=== PATIENT | female | born 1945 | race Two or more races ===

== ENCOUNTER 2016-09-20 10:36 | Inpatient (IN) | payer OTHER ==
--- NOTE | 2016-09-20 10:44 | PDOC ---
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 The patients daughter reports the patient complained of dizziness yesterday. The patients daughter states the patient has not been responding verbally since yesterday morning. The patient does not make urine as per her daughter. The patients daughter states her mother is usually seen at a clinic at [facility] Allergies: NKDA Past surgical history: quadruple bypass <Camille Dudley - Last Filed: 09/20/16 14:44> - General History Source: Patient, EMS, Old Records Exam Limitations: Clinical Condition <Laurie Del Rio - Last Filed: 09/21/16 10:32> - General Chief Complaint: Altered Mental Status Stated Complaint: ALTERED MENTAL Time Seen by Provider: 09/20/16 10:43 Past History <Camille Dudley - Last Filed: 09/20/16 14:44> - Past Medical History Diabetes: Yes Dialysis: Yes (,,) HTN: Yes Suicide Attempt (Hx): No - Surgical History Cardiac Surgery: Yes (QUAD BYPASS) - Immunization History Td Vaccination: (UNKNOWN) Immunization Up to Date: Yes (FLU AND PNA) - Psycho/Social/Smoking Cessation Hx Anxiety: No Suicidal Ideation: No Smoking Status: No Smoking History: Never smoked Have you smoked in the past 12 months: No Number of Cigarettes Smoked Daily: 0 Hx Alcohol Use: No Drug/Substance Use Hx: No Substance Use Type: None <Laurie Del Rio - Last Filed: 09/21/16 10:32> - Past Medical History Allergies/Adverse Reactions: Allergies Allergy/AdvReac Type Severity Reaction Status Date / Time No Known Allergies Allergy Verified 09/20/16 11:41 Home Medications: Ambulatory Orders Aspirin [ASA -] 81 mg PO DAILY 07/24/15 Amlodipine Besylate 5 mg PO DAILY 09/20/16 Carvedilol 6.25 mg PO BID 09/20/16 Gabapentin 100 mg PO HS 09/20/16 Isoniazid 300 mg PO DAILY 09/20/16 Pyridoxine HCl [Vitamin B-6] 100 mg PO DAILY 09/20/16 Review of Systems - Review of Systems Able to Perform ROS?: No (altered, Hx from family) <Rox Dudleyanda - Last Filed: 09/20/16 14:44> *Physical Exam - Physical Exam Comments: 09/20/16 11:06 GENERAL: The patient is in no acute distress. Somnolent, but responsive to painful stimuli. HEAD: Normal with no signs of trauma. EYES: PERRLA, EOMI, sclera anicteric, conjunctiva clear. ENT: Ears normal, nares patent, oropharynx clear without exudates. Moist mucous membranes. NECK: Normal range of motion, supple without lymphadenopathy, JVD, or masses. LUNGS: Breath sounds equal, clear to auscultation bilaterally. No wheezes, and no crackles. HEART:Regular rate and rhythm, normal S1 and S2 without murmur, rub or gallop. ABDOMEN: Soft, nontender, normoactive bowel sounds. No guarding, no rebound. No masses palpable. EXTREMITIES: Normal range of motion, no edema. No clubbing or cyanosis. No erythema, or tenderness. NEUROLOGICAL: (+) moving all extremities purposefully and with full strength. Cranial nerves II through XII grossly intact. No focal neurological deficits. MUSCULOSKELETAL: Back non-tender to palpation, no CVA tenderness SKIN: Warm, Dry, normal turgor, no rashes or lesions noted. <Camille Dudley - Last Filed: 09/20/16 14:44> Heart Score/ECG Review #1 ECG reviewed & interpreted by me at: 11:22 General ECG Interpretation: Sinus Rhythm, Normal Rate, No acute ischemic changes 09/20/16 11:22 QTc - 492ms <Laurie Del Rio - Last Filed: 09/21/16 10:32> ED Treatment Course - LABORATORY CBC & Chemistry Diagram: 09/20/16 11:07 09/20/16 12:46 - RADIOLOGY Radiograph Interpretation: 09/20/16 13:25 EXAM#: TYPE/EXAM: RESULT: [id number] RAD/CHEST X-RAY PORTABLE* Chest: HISTORY: Rule out sepsis. Frontal view of the chest is provided. Prior study is dated October 08, 2015. There is a suboptimal inspiratory effort which exaggerates cardiomediastinal silhouette and perihilar lung markings which appear prominent. Cannot exclude mild congestive changes. Sternotomy wires and clips are again noted. There is osteopenia. There is slight blurring of the left hemidiaphragm focally which may be a spurious finding however small infiltrate cannot be excluded at the left base. Subacromial spurs are noted. IMPRESSION: Suboptimal inspiratory effort which exaggerates cardiomediastinal silhouette and perihilar lung markings. Cannot exclude mild congestive changes. Slight blurring of the left hemidiaphragm focally may reflect small early infiltrate at the left base. Recommend clinical correlation. Reported By: Barbara Banegas MD 09/20/16 1116 EXAM#: TYPE/EXAM: RESULT: [id number] CT/HEAD CT WITHOUT CONTRAST Change in mental status. CT scan of the brain without intravenous contrast. Since 01/24/2011, there is [id number] volume loss and ventricular dilatation. Probable mild periventricular chronic microvascular ischemic changes are present. No mass lesion, gross acute infarct or intracranial hemorrhage are identified. There is no shift of the midline structures. Calcification of the cavernous carotid arteries are present. Mild deviation of the nasal septum to the left. Visualized paranasal sinuses and mastoid air cells are well aerated and the calvarium is intact IMPRESSION: No significant interval change or acute intracranial pathology is identified. Reported By: Martina Salazar MD 09/20/16 1308 <Camille Dudley - Last Filed: 09/20/16 14:44> - LABORATORY CBC & Chemistry Diagram: 09/21/16 07:50 09/21/16 07:50 <Laurie Del Rio - Last Filed: 09/21/16 10:32> Medical Decision Making - Medical Decision Making 09/20/16 10:43 A portion of this note was documented by scribe services under my direction. I have reviewed the details of the note, within reason, and agree with the documentation with the following case summary and management plan written by me. Nursing documentation reviewed and incorporated into medical decision making 09/20/16 12:05 This patient is a 70-year-old female with a history of end-stage renal disease on dialysis, coronary artery disease status post triple bypass, The patient patient presents emergency department from dialysis due to altered mental status. According to the family she was noted to be weak yesterday, pt was still speaking but slow to respond Today, apparently she was not speaking prior to dialysis She completed her dialysis session and still remained aphasic and appeared weak According to the family, she has had no fevers or chills No nausea or vomiting She does not make urine No diarrhea Laboratory Tests 09/20/16 11:07 WBC 9.7 Hgb 11.3 Hct 35.4 Plt Count 307 Neutrophils % 83.2 H Lymphocytes % 10.1 09/20/16 15:[address] negative Pt reportedly complaining of occipital headache No nuchal rigidity Will give tylenol Will re assess 09/20/16 15:46 Laboratory Tests 09/20/16 12:46 Sodium 137 Potassium 4.2 D Chloride 103 Carbon Dioxide 21 Anion Gap 13 BUN 28 H D Creatinine 4.5 H D Random Glucose 97 D Creatine Kinase 50 Troponin I < 0.02 Morphine given for headache Pt improved and is back to her baseline Clinical impression: Altered Mental Status <Laurie Del Rio - Last Filed: 09/21/16 10:32> *DC/Admit/Observation/Transfer - Attestations Scribe Attestion: 09/20/16 11:07 Documentation prepared by Camille Dudley, acting as medical observer for Laurie Del Rio MD <Camille Dudley - Last Filed: 09/20/16 14:44> - Discharge Dispostion Admit: Yes <Laurie Del Rio - Last Filed: 09/21/16 10:32> Diagnosis at time of Disposition: Altered mental status Qualifiers: Altered mental status type: somnolence Qualified Code(s): R40.0 - Somnolence - Discharge Dispostion Condition at time of disposition: Stable
--- NOTE | 2016-09-20 11:11 | EKG ---
Test Reason : Blood Pressure : / mmHG Vent. Rate : 078 BPM Atrial Rate : 078 BPM P-R Int : 182 ms QRS Dur : 092 ms QT Int : 432 ms P-R-T Axes : 022 028 048 degrees QTc Int : 492 ms NORMAL SINUS RHYTHM PROLONGED QT ABNORMAL ECG WHEN COMPARED WITH ECG OF 12-JAN-2015 21:31, NO SIGNIFICANT CHANGE WAS FOUND REPEAT EKG IF CLINICALLY INDICATED Confirmed by SHELBY CORONADO MD ([id number]) on 09/20/2016 11:10:31 AM Referred By: Confirmed By:SHELBY CORONADO MD
[2016-09-20 11:39] LABS: BASOPHIL 1.1 % (0-2.0); EOSINOPHIL 1.2 % (0-4.5); MCH 30.1 pg (25.7-33.7); MCHC 31.9 g/dl (32.0-36.0); MEAN CELL VOLUME 94.3 fl (80-96); MEAN PLT VOLUME 8.8 fl (7.5-11.1); NEUTROPHILS 83.2 % (42.8-82.8); PLATELET COUNT 307 K/MM3 (134-434); RDW 16.1 % (11.6-15.6); WHITE BLOOD COUNT 9.7 K/mm3 (4.0-10.0)
[2016-09-20 11:57] LABS: INR 1.3 (0.82-1.09); PROTHROMBIN TIME (PATIENT) 14.4 SEC (9.98-11.88)
[2016-09-20 12:02] LABS: ACTIVATED PTT 38.5 SECONDS (26.9-34.4)
[2016-09-20 12:04] LABS: VENOUS BLOOD GAS HCO3 25.1 meq/L (19-25); VENOUS PH 7.39 (7.32-7.42)
[2016-09-20] MEDS ORDERED: ACETAMINOPHEN 325 MG TABLET (FP) PO ONE (13:24)
[2016-09-20] MEDS ORDERED: ACETAMINOPHEN 325 MG TABLET (FP) ONE ×2 (13:28→22:46)
[2016-09-20 13:32] LABS: ALBUMIN 3.2 g/dl (3.4-5.0); ANION GAP 13 (8-16); BILIRUBIN,TOTAL 0.5 mg/dL (0.2-1.0); CALCIUM 8.4 mg/dL (8.5-10.1); CO2 21 mmol/L (21-32); CREATININE 4.5 mg/dL (0.55-1.02); GLUCOSE,RANDOM 97 mg/dL (74-106); SGPT/ALT 17 U/L (12-78); TOT PROT 6.2 g/dl (6.4-8.2)
[2016-09-20 13:44] LABS: ALK PHOS 116 U/L (45-117); CPK 50 IU/L (26-192); SGOT/AST 84 U/L (15-37); TROPONIN I < 0.02 ng/ml (0.00-0.05)
--- NOTE | 2016-09-20 16:19 | HP ---
70 y/o F with PMH HTN s/p quadruple bypass, ESRD (dialysis Monday, , Monday), + PPD (on meds), [place] (13 years ago), who presented to ED with dizziness for 2 days. As per patient's daughter, 2 days ago, patient told her daughter that she was feeling dizzy. She is verbal and fully functional at baseline. . However, when patient went to dialysis this morning, the dizziness persisted as she had trouble walking. From dialysis she was recommended to come to ER. She has become non-verbal and simply moaning in pain. Daughter states that she is complaining of occipital headache. ER course was notable for: (1) CXR: cannot exclude mild congestive changes, small early infiltrate L base (2) EKG: NSR, prolonged QT (3) Head CT: no changes or acute intracranial pathology (4) Morphine 2mg IVPush once, acetaminophen 975 mg PO once Recent Travel: none PAST MEDICAL HISTORY: HTN s/p quadruple bypass, ESRD (dialysis Monday, , Monday), + PPD (on meds), [place] (13 years ago) PAST SURGICAL HISTORY: colectomy, daughter is unable to explain reason why Social History: Smoking: denies Alcohol: denies Drugs: denies Family History: DM in brother Allergies No Known Allergies Allergy (Verified 09/20/16 11:41) HOME MEDICATIONS: Home Medications Medication Instructions Recorded Aspirin [ASA -] 81 mg PO DAILY 07/24/15 Amlodipine Besylate 5 mg PO DAILY 09/20/16 Carvedilol 6.25 mg PO BID 09/20/16 Gabapentin 100 mg PO HS 09/20/16 Isoniazid 300 mg PO DAILY 09/20/16 Pyridoxine HCl [Vitamin B-6] 100 mg PO DAILY 09/20/16 REVIEW OF SYSTEMS Unable to obtain secondary to level of consciousness. PHYSICAL EXAMINATION GENERAL: lethargic and minimally responsive. HEAD: Normal with no signs of trauma. EYES: pupils minimally reactive to light. EARS, NOSE, THROAT: Dry mucous membranes. NECK: Supple with no JVD. LUNGS: Diminished breath sounds at bases bilaterally HEART:RRR, 2/6 FABRICIO RSB ABDOMEN: Soft, nontender, not distended, normoactive bowel sounds, no guarding, no rebound, no masses. No hepatomegaly or splenomegaly. MUSCULOSKELETAL: No CVA tenderness. UPPER EXTREMITIES: 2+ pulses, warm, well-perfused. No cyanosis. No clubbing. No peripheral edema. LOWER EXTREMITIES: 2+ pulses, warm, well-perfused. No calf tenderness. No peripheral edema. NEUROLOGICAL: lethargic and minimally responsive, 2+ DTR of upper and lower ext SKIN: Warm, dry, normal turgor, no rashes or lesions noted, normal capillary refill. ASSESSMENT/PLAN: 70 y/o F with PMH HTN s/p quadruple bypass, ESRD (dialysis Monday, , Monday), + PPD (on meds), [place] (13 years ago) admitted for work up for acute mental status changes. Problem List - Problem (1) Altered mental status Assessment/Plan: * will r/o infection - CXR shows possible infiltrate * Blood and Urine cultures pending. * Lactic acid pending. * TSH, B12, and repeat CMP r/o metabolic causes. * Will continue IV Rocephin Code(s): R41.82 - ALTERED MENTAL STATUS, UNSPECIFIED (2) Positive PPD, treated Assessment/Plan: * Continue Isoniazid and B6. * ID consult. Visit type - Emergency Visit Emergency Visit: Yes ED Registration Date: 09/20/16 Care time: The patient presented to the Emergency Department on the above date and was hospitalized for further evaluation of their emergent condition. - New Patient This patient is new to me today: Yes Date on this admission: 09/21/16 - Critical Care Critical Care patient: No
[2016-09-20] MEDS ORDERED: morphine CARPU-JECT 4 MG/1 ML DISP.SYRIN IVPUSH ONE (17:03)
[2016-09-20] MEDS ORDERED: morphine CARPU-JECT 4 MG/1 ML DISP.SYRIN ONE (17:07)
--- NOTE | 2016-09-20 17:23 | HP ---
CHIEF COMPLAINT: dizziness for past 2 days PCP: HISTORY OF PRESENT ILLNESS: 70 y/o F with PMH HTN s/p quadruple bypass, ESRD (dialysis Monday, , Monday), + PPD (on meds), [place] (13 years ago), who presented to ED with dizziness for 2 days. As per patient's daughter, 2 days ago, patient told her daughter that she was feeling dizzy. Family thought it was not a problem. However, when patient went to dialysis this morning, the dizziness persisted as she had trouble walking. The staff at dialysis told the family at 8:30 this morning that she would need to go to the hospital for this reason. Over the past day, the patient has been unable to speak and respond to her family. At baseline, she is talkative. Her arms and legs have been shaking continually. Daughter states that mother has just been moaning in pain. As per pt's daughter, she receives medical treatment from [facility]. ER course was notable for: (1) CXR: cannot exclude mild congestive changes, small early infiltrate L base (2) EKG: NSR, prolonged QT (3) Head CT: no changes or acute intracranial pathology (4) Morphine 2mg IVPush once, acetaminophen 975 mg PO once Recent Travel: none PAST MEDICAL HISTORY: HTN s/p quadruple bypass, ESRD (dialysis Monday, , Monday), + PPD (on meds), [place] (13 years ago) PAST SURGICAL HISTORY: colectomy, daughter is unable to explain reason why Social History: Smoking: denies Alcohol: denies Drugs: denies Family History: DM in brother Allergies No Known Allergies Allergy (Verified 09/20/16 11:41) HOME MEDICATIONS: Home Medications Medication Instructions Recorded Aspirin [ASA -] 81 mg PO DAILY 07/24/15 Amlodipine Besylate 5 mg PO DAILY 09/20/16 Carvedilol 6.25 mg PO BID 09/20/16 Gabapentin 100 mg PO HS 09/20/16 Isoniazid 300 mg PO DAILY 09/20/16 Pyridoxine HCl [Vitamin B-6] 100 mg PO DAILY 09/20/16 REVIEW OF SYSTEMS CONSTITUTIONAL: +generalized weakness Absent: fever, chills, diaphoresis, generalized weakness, malaise, loss of appetite, weight change HEENT: Absent: rhinorrhea, nasal congestion, throat pain, throat swelling, difficulty swallowing, mouth swelling, ear pain, eye pain, visual changes CARDIOVASCULAR: Absent: chest pain, syncope, palpitations, irregular heart rate, lightheadedness , peripheral edema RESPIRATORY: Absent: cough, shortness of breath, dyspnea with exertion, orthopnea, wheezing, stridor, hemoptysis GASTROINTESTINAL: Absent: abdominal pain, abdominal distension, nausea, vomiting, diarrhea, constipation, melena, hematochezia GENITOURINARY: Absent: dysuria, frequency, urgency, hesitancy, hematuria, flank pain, genital pain MUSCULOSKELETAL: Absent: myalgia, arthralgia, joint swelling, back pain, neck pain SKIN: Absent: rash, itching, pallor HEMATOLOGIC/IMMUNOLOGIC: Absent: easy bleeding, easy bruising, lymphadenopathy, frequent infections ENDOCRINE: Absent: unexplained weight gain, unexplained weight loss, heat intolerance, cold intolerance NEUROLOGIC: +dizziness Absent: headache, focal weakness or paresthesias, dizziness, unsteady gait, seizure, mental status changes, bladder or bowel incontinence PSYCHIATRIC: Absent: anxiety, depression, suicidal or homicidal ideation, hallucinations. PHYSICAL EXAMINATION GENERAL: lethargic, in mild distress, moaning in pain HEAD: Normal with no signs of trauma. EYES: Pupils equal, round and reactive to light, rest difficult to assess as pt would not open eyes or follow commands EARS, NOSE, THROAT: ropharynx clear without exudates. Moist mucous membranes. NECK: Normal range of motion, supple without lymphadenopathy, JVD, or masses. LUNGS: wheezing appreciated b/l. HEART: Regular rate and rhythm, normal S1 and S2 without murmur, rub or gallop. ABDOMEN: Soft, nontender, not distended, normoactive bowel sounds, no guarding, no rebound, no masses. MUSCULOSKELETAL: difficult to assess d/t patient's mentation UPPER EXTREMITIES: 2+ pulses, warm, well-perfused. No cyanosis. No clubbing. No peripheral edema. LOWER EXTREMITIES: 2+ pulses, warm, well-perfused. No calf tenderness. 2+ pitting edema noted bilaterally NEUROLOGICAL: difficult to assess, as pt did not respond to commands ASSESSMENT/PLAN: 70 y/o F with PMH HTN s/p quadruple bypass, ESRD (dialysis Monday, , Monday), + PPD (on meds), [place] (13 years ago), who presented to ED with dizziness for 2 days. Pt admitted to med-surg for altered mental status r/o sepsis. #Altered mental status r/o sepsis, r/o other etiologies -Pt does not currently have SIRS criteria- HR WNL, no leukocytosis, afebrile -However d/t change in mental status, stat septic workup sent: -Blood cx -Urine Cx -CXR (completed): cannot exclude mild congestive changes, small early infiltrate L base -Lactic acid #r/o other etiologies: -F/u TSH, Free t3, T4 -Head CT: WNL -Nephro consulted: Dr. Mosquera -ID consulted: Dr. Vela #ESRD -Nephro consulted: Dr. Mosquera -BUN/Cr today 28/4.5 (last Cr 6.4 in 2014)- most likely improved d/t dialysis -F/u BMP, CBC #HTN- controlled -Continue aspirin 81 mg PO, amlodipine 5 mg PO, carvedilol 25 mg PO BID #Hypothermia -Pt temp 96.1F upon admission -Sean hugged ordered #DVT prophylaxis -SCD's b/l -Heparin 5000U SQ BID F/E/N -Currently not on fluids as pt ESRD pt, will need to re-evaluate -Monitor electrolytes closely -Clear liquid diet Visit type - Emergency Visit Emergency Visit: Yes ED Registration Date: 09/20/16 Care time: The patient presented to the Emergency Department on the above date and was hospitalized for further evaluation of their emergent condition. - New Patient This patient is new to me today: Yes Date on this admission: 09/20/16 - Critical Care Critical Care patient: No
--- NOTE | 2016-09-20 17:57 | PN ---
Teaching Attending Note Name of Resident: Yanni Sykes ATTENDING PHYSICIAN STATEMENT I saw and evaluated the patient. I reviewed the resident's note and discussed the case with the resident. I agree with the resident's findings and plan as documented. SUBJECTIVE: Patient AAOx3 now, knows where she is , stated that she had chills earlier today. OBJECTIVE: Vital Signs Temperature 96.1 F L 09/20/16 10:36 Pulse Rate 64 09/20/16 17:23 Respiratory Rate 19 09/20/16 17:23 Blood Pressure 151/62 09/20/16 17:23 O2 Sat by Pulse Oximetry (%) 97 09/20/16 17:23 CBCD WBC 9.7 K/mm3 (4.0-10.0) 09/20/16 11:07 RBC 3.75 M/mm3 (3.60-5.2) 09/20/16 11:07 Hgb 11.3 GM/dL (10.7-15.3) 09/20/16 11:07 Hct 35.4 % (32.4-45.2) 09/20/16 11:07 MCV 94.3 fl (80-96) 09/20/16 11:07 MCHC 31.9 g/dl (32.0-36.0) L 09/20/16 11:07 RDW 16.1 % (11.6-15.6) H 09/20/16 11:07 Plt Count 307 K/MM3 (134-434) 09/20/16 11:07 MPV 8.8 fl (7.5-11.1) 09/20/16 11:07 CMP Sodium 137 mmol/L (136-145) 09/20/16 12:46 Potassium 4.2 mmol/L (3.5-5.1) D 09/20/16 12:46 Chloride 103 mmol/L (98-107) 09/20/16 12:46 Carbon Dioxide 21 mmol/L (21-32) 09/20/16 12:46 Anion Gap 13 (8-16) 09/20/16 12:46 BUN 28 mg/dL (7-18) H D 09/20/16 12:46 Creatinine 4.5 mg/dL (0.55-1.02) H D 09/20/16 12:46 Creat Clearance w eGFR 9.61 (>60) 09/20/16 12:46 Random Glucose 97 mg/dL (74-106) D 09/20/16 12:46 Calcium 8.4 mg/dL (8.5-10.1) L 09/20/16 12:46 Total Bilirubin 0.5 mg/dL (0.2-1.0) D 09/20/16 12:46 AST 84 U/L (15-37) H D 09/20/16 12:46 ALT 17 U/L (12-78) D 09/20/16 12:46 Alkaline Phosphatase 116 U/L (45-117) D 09/20/16 12:46 Total Protein 6.2 g/dl (6.4-8.2) L 09/20/16 12:46 Albumin 3.2 g/dl (3.4-5.0) L 09/20/16 12:46 CARDIAC ENZYMES Creatine Kinase 50 IU/L (26-192) 09/20/16 12:46 Troponin I < 0.02 ng/ml (0.00-0.05) 09/20/16 12:46 Current Medications Generic Name Dose Route Start Last Admin Trade Name Freq PRN Reason Stop Dose Admin Amlodipine Besylate 5 mg 09/21/16 10:00 Norvasc - PO DAILY [facility] Aspirin 81 mg 09/21/16 10:00 Asa - PO DAILY [facility] Carvedilol 25 mg 09/20/16 22:00 Coreg - PO BID [facility] Gabapentin 100 mg 09/20/16 22:00 Neurontin - PO HS [facility] Heparin Sodium (Porcine) 5,000 unit 09/20/16 22:00 Heparin - SQ BID [facility] Isoniazid 300 mg 09/21/16 10:00 Inh - PO DAILY [facility] Pyridoxine HCl 100 mg 09/21/16 10:00 Vitamin B6 - PO DAILY [facility] Home Medications Medication Instructions Recorded Aspirin [ASA -] 81 mg PO DAILY 07/24/15 Amlodipine Besylate 5 mg PO DAILY 09/20/16 Carvedilol 6.25 mg PO BID 09/20/16 Gabapentin 100 mg PO HS 09/20/16 Isoniazid 300 mg PO DAILY 09/20/16 Pyridoxine HCl [Vitamin B-6] 100 mg PO DAILY 09/20/16 CXR:Early infiltrate ASSESSMENT AND PLAN: patient is a 70 y/o F with PMHx of HTN s/p quadruple bypass, ESRD (dialysis Monday, , Monday), + PPD (on meds), [place] (13 years ago), who presented to ED with dizziness for 2 days. Pt admitted to med-surg for altered mental status r/o sepsis. #Altered mental status r/o sepsis, possible Infiltrate on IV antibiotic Rocephin IV and one dose of Zithromax , Panculture ordered. Back to her baseline # Acute Hypothermia temp 96.1F r/o sepsis, r/o Hypothyroidism, bare hugger #ESRD on HD Nephro consulted: Dr. 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
[2016-09-20] MEDS: AZITHROMYCIN IVPB 250 ML IVPB SCH (20:30)
[2016-09-20] MEDS ORDERED: AZITHROMYCIN IVPB 250 ML IVPB ONE (21:05)
[2016-09-20] MEDS ORDERED: CARVEDILOL 12.5 MG TABLET (FP) ONE (22:04)
[2016-09-20] MEDS ORDERED: GABAPENTIN 100 MG CAPSULE (FP) ONE (22:05)
[2016-09-20] MEDS ORDERED: HEPARIN NA (PORCINE) 5,000 UNITS/ML 1ML VIAL ONE (22:06)
[2016-09-20] MEDS: HEPARIN NA (PORCINE) 5,000 UNITS/ML 1ML VIAL SQ SCH (22:12)
[2016-09-20] MEDS: CARVEDILOL 25 MG TABLET (FP) PO SCH (22:12)
[2016-09-20] MEDS: GABAPENTIN 100 MG CAPSULE (FP) PO SCH (22:12)
[2016-09-20] MEDS: ACETAMINOPHEN 325 MG TABLET (FP) PO PRN (22:44)
[2016-09-21 00:37] VITALS: BMI 28.5
[2016-09-21 08:23] LABS: EOSINOPHIL 3.3 % (0-4.5); MCH 30.5 pg (25.7-33.7); MCHC 32.3 g/dl (32.0-36.0); MEAN CELL VOLUME 94.5 fl (80-96); MEAN PLT VOLUME 8.8 fl (7.5-11.1); NEUTROPHILS 58.9 % (42.8-82.8); PLATELET COUNT 268 K/MM3 (134-434); RDW 15.6 % (11.6-15.6); WHITE BLOOD COUNT 4.4 K/mm3 (4.0-10.0)
[2016-09-21 08:46] LABS: ANION GAP 10 (8-16); CALCIUM 8.7 mg/dL (8.5-10.1); CO2 26 mmol/L (21-32); CREATININE 6.1 mg/dL (0.55-1.02); GLUCOSE,RANDOM 101 mg/dL (74-106); MAGNESIUM 2.6 mg/dL (1.8-2.4); PHOSPHOROUS 6.1 mg/dL (2.5-4.9)
[2016-09-21] MEDS: ACETAMINOPHEN 325 MG TABLET (FP) PO PRN (09:36)
[2016-09-21 11:13] LABS: URINE APPEARANCE SLCLOUDY; URINE BILIRUBIN NEGATIVE (NEGATIVE); URINE BLOOD 1+ (NEGATIVE); URINE COLOR LTYELLOW; URINE GLUCOSE (UA) NEGATIVE (NEGATIVE); URINE KETONE NEGATIVE (NEGATIVE); URINE NITRITE NEGATIVE (NEGATIVE); URINE UROBILINOGEN NEGATIVE mg/dL (0.2-1.0)
[2016-09-21 11:22] LABS: URINE LEUK ESTERASE 3+ (NEGATIVE); URINE PROTEIN 2+ (NEGATIVE)
[2016-09-21] MEDS: CEFTRIAXONE 50 ML IVPB SCH (11:30)
[2016-09-21] MEDS: CARVEDILOL 25 MG TABLET (FP) PO SCH ×2 (11:30→21:27)
[2016-09-21] MEDS: HEPARIN NA (PORCINE) 5,000 UNITS/ML 1ML VIAL SQ SCH ×2 (11:30→21:27)
[2016-09-21] MEDS: ASPIRIN 81 MG CHEWABLE TABLETS PO SCH (11:30)
[2016-09-21] MEDS: amLODIPine BESYLATE 5 MG TABLET (FP) PO SCH (11:30)
[2016-09-21] MEDS: AZITHROMYCIN IVPB 250 ML IVPB SCH ×2 (11:30→11:47)
--- NOTE | 2016-09-21 11:57 | PN ---
Progress Note (short form) - Note Progress Note: ID consult dictated imp/reccd 70 year old female with CAD, DM, ESRD on HD for 4 years admitted with lethargy per her son who is at bedside he took her to HD yesterday am, she was dizzy and nauseous she has been lethargic and not talking at home this is all over the last 48hours, this am she is conversant and answering questions when spoken in [place] no fevers or chills no vomiting no diarrhea no constipation history of chronic intermittent occipital headaches- currently with headache no cough on INH- not clear for how long no travel lives with daughter on exam she is sleeping but arousable c/o occipital headache neck is supple lungs are clear abd - soft, no distention, diffuse discomfort to palpation ext no edema lethargy/change in Mental status doubt pneumonia ?uti continue rocephin pending cultures consider abdominal imaging if abdominal pain persists can d/c zithromax Problem List - Problems (1) Altered mental status Code(s): R41.82 - ALTERED MENTAL STATUS, UNSPECIFIED Qualifiers: Altered mental status type: somnolence Qualified Code(s): R40.0 - Somnolence (2) UTI (urinary tract infection) Code(s): N39.0 - URINARY TRACT INFECTION, SITE NOT SPECIFIED
--- NOTE | 2016-09-21 13:38 | CONSULT ---
Consult Consult Specialty:: Nephrology Reason for Consultation:: ESRD - History of Present Illness Chief Complaint: vertigo History of Present Illness: Pt is a 70 year old female with pmhx of ESRD, HTN, DM and CAD who presents to the ER with vertigo. She completed HD yesterday and was sent in from dialysis very dizziness. She says she is still dizzy. She denies shortness of breath or chest pain. I was called to evaluate her for HD. She follows with Dr Moffett. She denies fevers or chills. - History Source History Provided By: Patient - Past Medical History Cardio/Vascular: Yes: CAD, HTN Renal/: Yes: Renal Failure, Hemodialysis ...: No Endocrine: Yes: Diabetes Mellitus - Past Surgical History Past Surgical History: Yes: AV Fistula/Graft, CABG - Alcohol/Substance Use Hx Alcohol Use: No - Smoking History Smoking history: Never smoked Have you smoked in the past 12 months: No Aproximately how many cigarettes per day: 0 Home Medications - Allergies Allergies/Adverse Reactions: Allergies Allergy/AdvReac Type Severity Reaction Status Date / Time No Known Allergies Allergy Verified 09/20/16 11:41 - Home Medications Home Medications: Ambulatory Orders Aspirin [ASA -] 81 mg PO DAILY 07/24/15 Amlodipine Besylate 5 mg PO DAILY 09/20/16 Carvedilol 6.25 mg PO BID 09/20/16 Gabapentin 100 mg PO HS 09/20/16 Isoniazid 300 mg PO DAILY 09/20/16 Pyridoxine HCl [Vitamin B-6] 100 mg PO DAILY 09/20/16 Family Disease History - Family Disease History Family History: Denies Review of Systems - Review of Systems Constitutional: reports: Malaise Eyes: reports: No Symptoms HENT: reports: No Symptoms Neck: reports: No Symptoms Cardiovascular: reports: No Symptoms Respiratory: reports: No Symptoms Gastrointestinal: reports: No Symptoms Genitourinary: reports: No Symptoms Musculoskeletal: reports: No Symptoms Neurological: reports: Dizziness Endocrine: reports: No Symptoms Hematology/Lymphatic: reports: No Symptoms Physical Exam Vital Signs: Vital Signs Temperature 98.6 F 09/21/16 10:00 Pulse Rate 63 09/21/16 10:00 Respiratory Rate 16 09/21/16 10:00 Blood Pressure 155/65 09/21/16 10:00 O2 Sat by Pulse Oximetry (%) 100 09/21/16 00:40 Constitutional: Yes: Calm Eyes: Yes: Conjunctiva Clear HENT: Yes: Atraumatic Neck: Yes: Supple Cardiovascular: Yes: S1, S2 Respiratory: Yes: CTA Bilaterally Gastrointestinal: Yes: Soft Renal/: Yes: WNL Musculoskeletal: Yes: WNL Neurological: Yes: Oriented Psychiatric: Yes: Oriented Labs: CBC, BMP 09/21/16 07:50 09/21/16 07:50 Laboratory Tests 09/20/16 09/21/16 09/21/16 11:07 07:50 07:50 WBC 4.4 D Hgb 11.3 9.9 L D Sodium 135 L Potassium 4.3 Chloride 99 Carbon Dioxide 26 D Anion Gap 10 BUN 36 H D Creatinine 6.1 H D Imaging - Results Chest X-ray: Report Reviewed Problem List - Problems (1) ESRD (end stage renal disease) Code(s): N18.6 - END STAGE RENAL DISEASE (2) CAD (coronary artery disease) Code(s): I25.10 - ATHSCL HEART DISEASE OF [place] CORONARY ARTERY W/O ANG PCTRS Assessment/Plan Current Medications Generic Name Dose Route Start Last Admin Trade Name Freq PRN Reason Stop Dose Admin Acetaminophen 650 mg 09/20/16 22:29 09/21/16 09:36 Tylenol - PO 650 mg Q4H PRN Administration FEVER OR PAIN Amlodipine Besylate 5 mg 09/21/16 10:00 09/21/16 11:30 Norvasc - PO 5 mg DAILY [facility] Administration Aspirin 81 mg 09/21/16 10:00 09/21/16 11:30 Asa - PO 81 mg DAILY G[facility] Administration Carvedilol 25 mg 09/20/16 22:00 09/21/16 11:30 Coreg - PO 25 mg BID G[facility] Administration Gabapentin 100 mg 09/20/16 22:00 09/20/16 22:12 Neurontin - PO 100 mg HS G[facility] Administration Heparin Sodium (Porcine) 5,000 unit 09/20/16 22:00 09/21/16 11:30 Heparin - SQ 5,000 unit BID G[facility] Administration Ceftriaxone Sodium 50 mls @ 100 mls/hr 09/21/16 10:00 09/21/16 11:30 Rocephin 1gm Ivpb (Pre-Docked) IVPB 100 mls/hr DAILY [facility] Administration Isoniazid 300 mg 09/21/16 10:00 09/21/16 15:25 Inh - PO 300 mg DAILY [facility] Administration Pyridoxine HCl 100 mg 09/21/16 10:00 09/21/16 15:25 Vitamin B6 - PO 100 mg DAILY [facility] Administration Impression 1. ESRD 2. HTN 3. vertigo 4. DM 5. CAD 6. UTI Plan - will arrange HD in am - cont current meds - follow up culures - called HD unit as went over prescription - abg 3 hrs 2k bath 1000 heparin, epogen 4000
[2016-09-21] MEDS: ISONIAZID 300 MG TABLET (FP) PO SCH (15:25)
[2016-09-21] MEDS: PYRIDOXINE HCL (B-6) 100 MG TABLET PO SCH (15:25)
--- NOTE | 2016-09-21 17:05 | PN ---
Physical Exam: SUBJECTIVE: Patient seen and examined at bedside. Pt states that she is still feeling dizzy today, but it is improved from yesterday. Pt now verbal- on admission was unable to speak. Pt less tremulous. Dialysis tomorrow. OBJECTIVE: Vital Signs Period Temp Pulse Resp BP Sys/Rodriguez Pulse Ox Last 24 Hr 97.9 F-98.9 F 60-71 16-20 140-164/60-78 97-100 GENERAL: The patient is awake, alert, and fully oriented, in no acute distress. Feels mildly dizzy HEAD: Normal with no signs of trauma. EYES: PERRL, extraocular movements intact, sclera anicteric, conjunctiva clear. ENT: Ears normal, nares patent, oropharynx clear without exudates, moist mucous membranes. NECK: Trachea midline, full range of motion, supple. LUNGS: Breath sounds equal, clear to auscultation bilaterally, no wheezes, no crackles, no accessory muscle use. HEART: Regular rate and rhythm, S1, S2 without murmur, rub or gallop. ABDOMEN: Soft, nontender, nondistended, normoactive bowel sounds, no guarding, no rebound EXTREMITIES: 2+ posterior tibial pulses, warm, well-perfused, 1+ edema b/l in lower extremities NEUROLOGICAL: Cranial nerves II through XII grossly intact. Laboratory Results - last 24 hr 09/21/16 09/21/16 09/21/16 01:44 06:22 07:50 WBC 4.4 D RBC 3.25 L Hgb 9.9 L D Hct 30.7 L MCV 94.5 MCH 30.5 MCHC 32.3 RDW 15.6 Plt Count 268 MPV 8.8 Neutrophils % 58.9 D Lymphocytes % 30.9 D Monocytes % 5.9 Eosinophils % 3.3 D Basophils % 1.0 Sodium Potassium Chloride Carbon Dioxide Anion Gap BUN Creatinine POC Glucometer 84 95 Random Glucose Calcium Phosphorus Magnesium Troponin I Urine Color Urine Appearance Urine pH Urine Protein Urine Glucose (UA) Urine Ketones Urine Blood Urine Nitrite Urine Bilirubin Urine Urobilinogen Ur Leukocyte Esterase 09/21/16 09/21/16 09/21/16 07:50 07:50 09:10 WBC RBC Hgb Hct MCV MCH MCHC RDW Plt Count MPV Neutrophils % Lymphocytes % Monocytes % Eosinophils % Basophils % Sodium 135 L Potassium 4.3 Chloride 99 Carbon Dioxide 26 D Anion Gap 10 BUN 36 H D Creatinine 6.1 H D POC Glucometer Random Glucose 101 Calcium 8.7 Phosphorus 6.1 H D Magnesium 2.6 H Troponin I 0.02 Urine Color Ltyellow Urine Appearance Slcloudy Urine pH 7.0 Urine Protein 2+ H Urine Glucose (UA) Negative Urine Ketones Negative Urine Blood 1+ H Urine Nitrite Negative Urine Bilirubin Negative Urine Urobilinogen Negative Ur Leukocyte Esterase 3+ H 09/21/16 11:30 WBC RBC Hgb Hct MCV MCH MCHC RDW Plt Count MPV Neutrophils % Lymphocytes % Monocytes % Eosinophils % Basophils % Sodium Potassium Chloride Carbon Dioxide Anion Gap BUN Creatinine POC Glucometer 107 Random Glucose Calcium Phosphorus Magnesium Troponin I Urine Color Urine Appearance Urine pH Urine Protein Urine Glucose (UA) Urine Ketones Urine Blood Urine Nitrite Urine Bilirubin Urine Urobilinogen Ur Leukocyte Esterase Active Medications Generic Name Dose Route Start Last Admin Trade Name Freq PRN Reason Stop Dose Admin Acetaminophen 650 mg 09/20/16 22:29 09/21/16 09:36 Tylenol - PO 650 mg Q4H PRN Administration FEVER OR PAIN Amlodipine Besylate 5 mg 09/21/16 10:00 09/21/16 11:30 Norvasc - PO 5 mg DAILY [facility] Administration Aspirin 81 mg 09/21/16 10:00 09/21/16 11:30 Asa - PO 81 mg DAILY G[facility] Administration Carvedilol 25 mg 09/20/16 22:00 09/21/16 11:30 Coreg - PO 25 mg BID G[facility] Administration Epoetin Edil 4,000 units 09/22/16 15:59 Epogen - IVPUSH 09/22/16 16:00 ONCE ONE Gabapentin 100 mg 09/20/16 22:00 09/20/16 22:12 Neurontin - PO 100 mg HS [facility] Administration Heparin Sodium (Porcine) 5,000 unit 09/20/16 22:00 09/21/16 11:30 Heparin - SQ 5,000 unit BID [facility] Administration Heparin Sodium (Porcine) 1,000 unit 09/22/16 15:59 Heparin - IVPUSH 09/22/16 16:00 ONCE ONE Ceftriaxone Sodium 50 mls @ 100 mls/hr 09/21/16 10:00 09/21/16 11:30 Rocephin 1gm Ivpb (Pre-Docked) IVPB 100 mls/hr DAILY [facility] Administration Isoniazid 300 mg 09/21/16 10:00 09/21/16 15:25 Inh - PO 300 mg DAILY [facility] Administration Pyridoxine HCl 100 mg 09/21/16 10:00 09/21/16 15:25 Vitamin B6 - PO 100 mg DAILY G[facility] Administration ASSESSMENT/PLAN: 70 y/o F with PMH HTN s/p quadruple bypass, ESRD (dialysis Monday, , Monday), + 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 Pt admitted to med-surg for altered mental status r/o sepsis. #Acute metabolic encephalopathy secondary to UTI -Pt afebrile, without leukocytosis -mental status improved, pt verbal today -UA (09/21): 2+ protein, 1+ blood, 3+ leuk esterase- suggestive of UTI- -F/u blood and urine cx -As per renal, will get dialysis in AM (had misses dialysis on day of admission d/t symptoms) #r/o other etiologies: -F/u TSH, Free t3, T4 -Head CT: WNL -Nephro consulted: Dr. Mosquera -ID consulted: Dr. Vela #ESRD -Nephro consulted: Dr. Mosquera -F/u BMP, CBC #HTN- controlled -Continue aspirin 81 mg PO, amlodipine 5 mg PO, carvedilol 25 mg PO BID #Hypothermia-resolved #DVT prophylaxis -SCD's b/l -Heparin 5000U SQ BID F/E/N -Currently not on fluids as pt ESRD pt, will need to re-evaluate -Monitor electrolytes closely -Clear liquid diet Visit type - Emergency Visit Emergency Visit: No - New Patient This patient is new to me today: No - Critical Care Critical Care patient: No
--- NOTE | 2016-09-21 17:05 | PN ---
Physical Exam: SUBJECTIVE: Patient seen and examined OBJECTIVE: Vital Signs Period Temp Pulse Resp BP Sys/Rodriguez Pulse Ox Last 24 Hr 97.9 F-98.9 F 60-71 16-20 140-164/60-78 97-100 GENERAL: The patient is awake, alert, and fully oriented, in no acute distress. HEAD: Normal with no signs of trauma. EYES: PERRL, extraocular movements intact, sclera anicteric, conjunctiva clear. No ptosis. ENT: Ears normal, nares patent, oropharynx clear without exudates, moist mucous membranes. NECK: Trachea midline, full range of motion, supple. LUNGS: Breath sounds equal, clear to auscultation bilaterally, no wheezes, no crackles, no accessory muscle use. HEART: Regular rate and rhythm, S1, S2 without murmur, rub or gallop. ABDOMEN: Soft, nontender, nondistended, normoactive bowel sounds, no guarding, no rebound, no hepatosplenomegaly, no masses. EXTREMITIES: 2+ pulses, warm, well-perfused, no edema. NEUROLOGICAL: Cranial nerves II through XII grossly intact. Normal speech, gait not observed. PSYCH: Normal mood, normal affect. SKIN: Warm, dry, normal turgor, no rashes or lesions noted Laboratory Results - last 24 hr 09/21/16 09/21/16 09/21/16 01:44 06:22 07:50 WBC 4.4 D RBC 3.25 L Hgb 9.9 L D Hct 30.7 L MCV 94.5 MCH 30.5 MCHC 32.3 RDW 15.6 Plt Count 268 MPV 8.8 Neutrophils % 58.9 D Lymphocytes % 30.9 D Monocytes % 5.9 Eosinophils % 3.3 D Basophils % 1.0 Sodium Potassium Chloride Carbon Dioxide Anion Gap BUN Creatinine POC Glucometer 84 95 Random Glucose Calcium Phosphorus Magnesium Troponin I Urine Color Urine Appearance Urine pH Urine Protein Urine Glucose (UA) Urine Ketones Urine Blood Urine Nitrite Urine Bilirubin Urine Urobilinogen Ur Leukocyte Esterase 09/21/16 09/21/16 09/21/16 07:50 07:50 09:10 WBC RBC Hgb Hct MCV MCH MCHC RDW Plt Count MPV Neutrophils % Lymphocytes % Monocytes % Eosinophils % Basophils % Sodium 135 L Potassium 4.3 Chloride 99 Carbon Dioxide 26 D Anion Gap 10 BUN 36 H D Creatinine 6.1 H D POC Glucometer Random Glucose 101 Calcium 8.7 Phosphorus 6.1 H D Magnesium 2.6 H Troponin I 0.02 Urine Color Ltyellow Urine Appearance Slcloudy Urine pH 7.0 Urine Protein 2+ H Urine Glucose (UA) Negative Urine Ketones Negative Urine Blood 1+ H Urine Nitrite Negative Urine Bilirubin Negative Urine Urobilinogen Negative Ur Leukocyte Esterase 3+ H 09/21/16 11:30 WBC RBC Hgb Hct MCV MCH MCHC RDW Plt Count MPV Neutrophils % Lymphocytes % Monocytes % Eosinophils % Basophils % Sodium Potassium Chloride Carbon Dioxide Anion Gap BUN Creatinine POC Glucometer 107 Random Glucose Calcium Phosphorus Magnesium Troponin I Urine Color Urine Appearance Urine pH Urine Protein Urine Glucose (UA) Urine Ketones Urine Blood Urine Nitrite Urine Bilirubin Urine Urobilinogen Ur Leukocyte Esterase Active Medications Generic Name Dose Route Start Last Admin Trade Name Freq PRN Reason Stop Dose Admin Acetaminophen 650 mg 09/20/16 22:29 09/21/16 09:36 Tylenol - PO 650 mg Q4H PRN Administration FEVER OR PAIN Amlodipine Besylate 5 mg 09/21/16 10:00 09/21/16 11:30 Norvasc - PO 5 mg DAILY G[facility] Administration Aspirin 81 mg 09/21/16 10:00 09/21/16 11:30 Asa - PO 81 mg DAILY G[facility] Administration Carvedilol 25 mg 09/20/16 22:00 09/21/16 11:30 Coreg - PO 25 mg BID G[facility]ON Administration Epoetin Edil 4,000 units 09/22/16 15:59 Epogen - IVPUSH 09/22/16 16:00 ONCE ONE Gabapentin 100 mg 09/20/16 22:00 09/20/16 22:12 Neurontin - PO 100 mg HS G[facility]ON Administration Heparin Sodium (Porcine) 5,000 unit 09/20/16 22:00 09/21/16 11:30 Heparin - SQ 5,000 unit BID G[facility] Administration Heparin Sodium (Porcine) 1,000 unit 09/22/16 15:59 Heparin - IVPUSH 09/22/16 16:00 ONCE ONE Ceftriaxone Sodium 50 mls @ 100 mls/hr 09/21/16 10:00 09/21/16 11:30 Rocephin 1gm Ivpb (Pre-Docked) IVPB 100 mls/hr DAILY [facility] Administration Isoniazid 300 mg 09/21/16 10:00 09/21/16 15:25 Inh - PO 300 mg DAILY G[facility] Administration Pyridoxine HCl 100 mg 09/21/16 10:00 09/21/16 15:25 Vitamin B6 - PO 100 mg DAILY G[facility] Administration ASSESSMENT/PLAN:
--- NOTE | 2016-09-21 17:42 | PN ---
Teaching Attending Note Name of Resident: Yanni Sykes ATTENDING PHYSICIAN STATEMENT I saw and evaluated the patient. I reviewed the resident's note and discussed the case with the resident. I agree with the resident's findings and plan as documented. SUBJECTIVE:1 episode of dizzyness today when standing up from lying down position. assoc with urinary urgency and lower abdominal pain. states at home with have intermittent dizzyness that would last several seconds and self resolve for the past 2 days. can not relate if related to position. did receive HD yesterday without complication. denies CP, SOB, fever, chills, N/V/C/d, tinnitus, recent ear infections. denies melena or BRBPR no hematuria OBJECTIVE: Last Vital Signs Temp Pulse Resp BP Pulse Ox 98 F 60 20 140/73 100 09/21/16 14:25 09/21/16 14:25 09/21/16 14:25 09/21/16 14:25 09/21/16 00:40 General NAD CV S1 S2 RRR +murmur Lungs CTA B/L no wheezing/rales/rhonchi Abdomen +suprapubic tenderness no rebound or guarding Extremities RUE graft +palpable thrill ASSESSMENT AND PLAN: 70yo F wtih PMH ESRD on HD, CAD S/p CABG presented to the ER with dizzynes 1. Sepsis due to UTI- hypothermic when arrived to the ER. tachycardia response likely blunted by betablocker effect. questionable infiltrate in L base. UA +. evaluated by ID. azithromcyin d/c and on Ceftriaxone. f/u Cx (possibly UCx will be negative as received after the start of abx) 2. Dizzyness- possible due to infection as symptoms have improved. CT head negative for acute intracranial pathology. as symptoms are transient and not assoc with tinnitus or hearing loss will monitor if continues to improve as infection is treated 3. Acute macrocytic anemia- no signs of bleeding. repeat Hgb. transfuse for Hgb <8 4. ESRD on HD-HD per normal schedule (TTS). nephrology on board 5. CAD s/p CABG- cont home manegement 6. DVT ppx- hep sq
[2016-09-21] MEDS: GABAPENTIN 100 MG CAPSULE (FP) PO SCH (21:27)
--- NOTE | 2016-09-22 06:56 | CONS ---
DATE OF CONSULTATION: DATE OF DICTATION: 09/21/2016 REQUESTED BY: The hospitalist service. HISTORY OF PRESENT ILLNESS: This is a 70-year-old woman who comes to the emergency room. She has a history of coronary artery disease and end-stage renal disease for the last 4 years with 2-day history of fatigue, lethargy. She apparently speaks minimally but has become more lethargic at home and yesterday became essentially nonverbal. Her son is present. He reports that he dropped mom off at 6 a.m. at dialysis at which time she was dizzy and complained of nausea. Apparently, later that day she continued to have lethargy and he brought her to the emergency room. The patient is currently awake. She speaks in English to her son who is serving as plastic worker. She denies any fevers or chills. She has a history of chronic occipital headaches per the son and she has for the last 2 days had an intermittent occipital headache. She denies any vomiting. She denies any diarrhea. She reports having moved her bowels yesterday. There is no history of any travel nor sick contacts. PAST MEDICAL HISTORY: Notable for diabetes, hypertension, end-stage renal disease. Son reports on dialysis for 4 years. She has a history of chronic occipital headaches. He reports she has had them for years and she apparently has a positive PPD and is on INH. It is unclear from the son or the patient how long she has been on the INH. SURGICAL HISTORY: Notable for a CABG x4. SOCIAL HISTORY: She is originally from [place]. She lives with her daughter. There is no history of any cigarette or illicit drug use. ALLERGIES: She has no known drug allergies. OUTPATIENT MEDICATIONS: Include aspirin, amlodipine, Coreg, gabapentin, isoniazid, and pyridoxine. REVIEW OF SYSTEMS: She denies any cough. She denies any shortness of breath. She denies any chest pain. PHYSICAL EXAMINATION: General: She is awake and alert. She is resting comfortably. Vital Signs: Temperature is 98.6, pulse is 63, blood pressure 155/65, respiratory rate is 20. HEENT: She is normocephalic. Her eyes are anicteric. Neck: Supple. She has no thrush. She complains of occipital headache. Lungs: Clear to auscultation. Heart: Regular rate and rhythm. Abdomen: Soft. There is no distention. She has bowel sounds. She has diffuse discomfort on palpation of her abdomen. Extremities: Without edema. She has an AV fistula with a good thrill in her left lower arm. LABORATORIES: Her labs are notable for a white count yesterday of 9.7, this morning 4.4, hemoglobin 9.9, platelets are 268. BUN is 10 and creatinine is 6.1 and her liver function tests are notable for an AST of 84, ALT of 17, alkaline phosphatase of 116. Urinalysis has been sent. She has 3+ leukocyte esterase and cultures are pending. Chest x-ray does not show any infiltrate. ASSESSMENT: In summary, this is a 70-year-old woman admitted with lethargy, change in mental status. I doubt pneumonia. Question urinary tract infection. RECOMMENDATIONS: Would continue Rocephin pending cultures. She does have diffuse abdominal discomfort on exam. Would consider abdominal imaging if her abdominal pain persists. Son does report that her mental status is much improved and she is now verbal compared to yesterday. IVONE METCALF M.D. [id number]
[2016-09-22] MEDS ORDERED: HEPARIN NA (PORCINE) 5,000 UNITS/ML 1ML VIAL IVPUSH ONE (11:45)
[2016-09-22] MEDS ORDERED: EPOETIN ALFA 2,000 UNITS/1 ML VIAL IVPUSH ONE (12:00)
[2016-09-22 12:16] LABS: MCHC 32.6 g/dl (32.0-36.0); MEAN CELL VOLUME 95.1 fl (80-96); MEAN PLT VOLUME 9.3 fl (7.5-11.1); PLATELET COUNT 262 K/MM3 (134-434); RDW 16.1 % (11.6-15.6); WHITE BLOOD COUNT 3.4 K/mm3 (4.0-10.0)
[2016-09-22 12:49] LABS: ANION GAP 11 (8-16); CALCIUM 8.1 mg/dL (8.5-10.1); CO2 27 mmol/L (21-32); GLUCOSE,RANDOM 130 mg/dL (74-106)
[2016-09-22 13:36] LABS: CREATININE 8.1 mg/dL (0.55-1.02)
[2016-09-22] MEDS ORDERED: PT OWN MED DRAWER 7, Y5N ONE (15:54)
--- NOTE | 2016-09-22 15:59 | PN ---
Progress Note, Physician History of Present Illness: Pt seen and examined at bedside. She is awake and alert. She tolerated HD today. - Current Medication List Current Medications: Active Medications Acetaminophen (Tylenol -) 650 mg PO Q4H PRN PRN Reason: FEVER OR PAIN Last Admin: 09/21/16 09:36 Dose: 650 mg Amlodipine Besylate (Norvasc -) 5 mg PO DAILY [facility] Last Admin: 09/21/16 11:30 Dose: 5 mg Aspirin (Asa -) 81 mg PO DAILY [facility] Last Admin: 09/21/16 11:30 Dose: 81 mg Carvedilol (Coreg -) 6.25 mg PO BID [facility] Gabapentin (Neurontin -) 100 mg PO HS [facility] Last Admin: 09/21/16 21:27 Dose: 100 mg Heparin Sodium (Porcine) (Heparin -) 5,000 unit SQ BID [facility] Last Admin: 09/21/16 21:27 Dose: 5,000 unit Ceftriaxone Sodium (Rocephin 1gm Ivpb (Pre-Docked)) 50 mls @ 100 mls/hr IVPB DAILY [facility] Last Admin: 09/21/16 11:30 Dose: 100 mls/hr Isoniazid (Inh -) 300 mg PO DAILY [facility] Last Admin: 09/21/16 15:25 Dose: 300 mg Pyridoxine HCl (Vitamin B6 -) 100 mg PO DAILY [facility] Last Admin: 09/21/16 15:25 Dose: 100 mg - Objective Vital Signs: Vital Signs Temperature 98.3 F 09/22/16 15:02 Pulse Rate 63 09/22/16 15:02 Respiratory Rate 18 09/22/16 15:02 Blood Pressure 136/66 09/22/16 15:02 O2 Sat by Pulse Oximetry (%) 100 09/21/16 21:00 Constitutional: Yes: Calm Eyes: Yes: Conjunctiva Clear HENT: Yes: Atraumatic Neck: Yes: Supple Cardiovascular: Yes: S1, S2 Respiratory: Yes: CTA Bilaterally Gastrointestinal: Yes: Soft Genitourinary: Yes: WNL Musculoskeletal: Yes: WNL Edema: No Neurological: Yes: Oriented Psychiatric: Yes: Oriented Labs: CBC, BMP 09/22/16 11:10 09/22/16 14:29 INR, PTT INR 1.30 (0.82-1.09) H 09/20/16 11:07 Problem List - Problems (1) ESRD (end stage renal disease) Code(s): N18.6 - END STAGE RENAL DISEASE (2) CAD (coronary artery disease) Code(s): I25.10 - ATHSCL HEART DISEASE OF [place] CORONARY ARTERY W/O ANG PCTRS Assessment/Plan Current Medications Generic Name Dose Route Start Last Admin Trade Name Freq PRN Reason Stop Dose Admin Acetaminophen 650 mg 09/20/16 22:29 09/21/16 09:36 Tylenol - PO 650 mg Q4H PRN Administration FEVER OR PAIN Amlodipine Besylate 5 mg 09/21/16 10:00 09/21/16 11:30 Norvasc - PO 5 mg DAILY [facility] Administration Aspirin 81 mg 09/21/16 10:00 09/21/16 11:30 Asa - PO 81 mg DAILY [facility] Administration Carvedilol 6.25 mg 09/22/16 22:00 Coreg - PO BID [facility] Gabapentin 100 mg 09/20/16 22:00 09/21/16 21:27 Neurontin - PO 100 mg HS [facility] Administration Heparin Sodium (Porcine) 5,000 unit 09/20/16 22:00 09/21/16 21:27 Heparin - SQ 5,000 unit BID [facility] Administration Ceftriaxone Sodium 50 mls @ 100 mls/hr 09/21/16 10:00 09/21/16 11:30 Rocephin 1gm Ivpb (Pre-Docked) IVPB 100 mls/hr DAILY [facility] Administration Isoniazid 300 mg 09/21/16 10:00 09/21/16 15:25 Inh - PO 300 mg DAILY [facility] Administration Pyridoxine HCl 100 mg 09/21/16 10:00 09/21/16 15:25 Vitamin B6 - PO 100 mg DAILY G[facility]ON Administration Impression 1. ESRD 2. HTN 3. vertigo 4. DM 5. CAD 6. UTI Plan - pt tolerated HD - follow cultures - cont antibiotics - blood cultures negative to date - abg 3 hrs 2k bath 1000 heparin, epogen 4000
--- NOTE | 2016-09-22 15:59 | PN ---
Teaching Attending Note Name of Resident: Yanni Sykes ATTENDING PHYSICIAN STATEMENT I saw and evaluated the patient. I reviewed the resident's note and discussed the case with the resident. I agree with the resident's findings and plan as documented. SUBJECTIVE:continues to have intermittent dizzyness but improved from admission. able to ambulate slowly to the bathroom. denies CP, SOB, fever, chills, N/V/C/D OBJECTIVE: Last Vital Signs Temp Pulse Resp BP Pulse Ox 98.3 F 63 18 136/66 100 09/22/16 15:02 09/22/16 15:02 09/22/16 15:02 09/22/16 15:02 09/21/16 21:00 General NAD Abdomen soft NT/ND Extremities RUE graft +palpable thrill ASSESSMENT AND PLAN: 70yo F wtih PMH ESRD on HD, CAD S/p CABG presented to the ER with dizzynes 1. Sepsis due to UTI-no longer hypothermic. on Ceftriaxone day 2. UCx contaminate, however is likely to be negative due to sample received after initiation of abx. ID on board. 2. Dizzyness- possible due to infection. also noted to be slightly bradycardic. coreg dose increased to 25mg on admission. unclear if this was accidental. will placed back on 6.25mg. check orthostatics as well. 3. Acute macrocytic anemia- no signs of bleeding. repeat Hgb. transfuse for Hgb <8 4. ESRD on HD-HD per normal schedule (TTS). nephrology on board. HD scheduled 5. CAD s/p CABG- cont home management 6. DVT ppx- hep sq
[2016-09-22] MEDS: ASPIRIN 81 MG CHEWABLE TABLETS PO SCH (16:00)
[2016-09-22] MEDS: HEPARIN NA (PORCINE) 5,000 UNITS/ML 1ML VIAL SQ SCH ×2 (16:00→21:46)
[2016-09-22] MEDS: amLODIPine BESYLATE 5 MG TABLET (FP) PO SCH (16:01)
[2016-09-22] MEDS: ISONIAZID 300 MG TABLET (FP) PO SCH (16:01)
[2016-09-22] MEDS: PYRIDOXINE HCL (B-6) 100 MG TABLET PO SCH (16:01)
[2016-09-22] MEDS ORDERED: cefTRIAXone SODIUM 1 GM VIAL ONE (16:08)
[2016-09-22] MEDS ORDERED: DEXTROSE 5%-WATER - 50 ML IVPB ONE (16:10)
[2016-09-22] MEDS: CEFTRIAXONE 50 ML IVPB SCH (16:10)
[2016-09-22] MEDS: CEFTRIAXONE 1 GM in DEXTROSE 5%-WATER - 50 ML IVPB SCH (16:15)
--- NOTE | 2016-09-22 16:22 | PN ---
Progress Note (short form) - Note Progress Note: alert and quite comfortable headaches much improved hungry just returned from HD Vital Signs Period Temp Pulse Resp BP Sys/Rodriguez Pulse Ox Last 24 Hr 97.7 F-99.2 F 52-66 18-20 115-187/54-98 100 cor-rrr llungs clear abd soft,nt ext no edema CBC, BMP 09/22/16 11:10 09/22/16 14:29 Microbiology 09/20/16 11:07 Blood - Peripheral Venous Blood Culture - Preliminary NO GROWTH OBTAINED AFTER 48 HOURS, INCUBATION TO CONTINUE FOR 3 DAYS. 09/20/16 11:07 Blood - Peripheral Venous Blood Culture - Preliminary NO GROWTH OBTAINED AFTER 48 HOURS, INCUBATION TO CONTINUE FOR 3 DAYS. 09/21/16 09:10 Urine - Urine Clean Catch Urine Culture - Final Contaminated: Please Repeat Current Medications Acetaminophen (Tylenol -) 650 mg PO Q4H PRN PRN Reason: FEVER OR PAIN Last Admin: 09/21/16 09:36 Dose: 650 mg Amlodipine Besylate (Norvasc -) 5 mg PO DAILY [facility] Last Admin: 09/22/16 16:01 Dose: 5 mg Aspirin (Asa -) 81 mg PO DAILY [facility] Last Admin: 09/22/16 16:00 Dose: 81 mg Carvedilol (Coreg -) 6.25 mg PO BID [facility] Gabapentin (Neurontin -) 100 mg PO HS [facility] Last Admin: 09/21/16 21:27 Dose: 100 mg Heparin Sodium (Porcine) (Heparin -) 5,000 unit SQ BID [facility] Last Admin: 09/22/16 16:00 Dose: 5,000 unit Ceftriaxone Sodium 1 gm/ (Dextrose) 50 mls @ 100 mls/hr IVPB DAILY [facility] Last Admin: 09/22/16 16:15 Dose: Not Given Isoniazid (Inh -) 300 mg PO DAILY [facility] Last Admin: 09/22/16 16:01 Dose: 300 mg Pyridoxine HCl (Vitamin B6 -) 100 mg PO DAILY [facility] Last Admin: 09/22/16 16:01 Dose: 100 mg a/p lethargy/change in Mental status resolved ?uti urine culture sent after antibiotics started switch to po keflex in am 250 bid treat for 7 days please call back if needed Problem List - Problems (1) Altered mental status Code(s): R41.82 - ALTERED MENTAL STATUS, UNSPECIFIED Qualifiers: Altered mental status type: somnolence Qualified Code(s): R40.0 - Somnolence (2) UTI (urinary tract infection) Code(s): N39.0 - URINARY TRACT INFECTION, SITE NOT SPECIFIED
[2016-09-22] MEDS: CARVEDILOL 25 MG TABLET (FP) PO SCH (17:21)
[2016-09-22] MEDS: CARVEDILOL 6.25 MG TABLET (FP) PO SCH ×2 (17:26→23:38)
--- NOTE | 2016-09-22 18:25 | PN ---
Physical Exam: SUBJECTIVE: Patient seen and examined at bedside. States that she is still feeling dizzy, but that is better today. Completed dialysis this afternoon. Pt dizzy while ambulating to the bathroom. OBJECTIVE: Vital Signs Period Temp Pulse Resp BP Sys/Rodriguez Pulse Ox Last 24 Hr 97.7 F-98.7 F 52-64 18-20 120-187/54-98 100-100 GENERAL: The patient is awake, alert, and fully oriented, in no acute distress. HEAD: Normal with no signs of trauma. EYES: PERRL, extraocular movements intact, sclera anicteric, conjunctiva clear. No ptosis. NECK: Trachea midline, supple. LUNGS: Breath sounds equal, clear to auscultation bilaterally, no wheezes, no crackles, no accessory muscle use. HEART: Regular rate and rhythm, S1, S2 without murmur, rub or gallop. ABDOMEN: Soft, nontender, nondistended, normoactive bowel sounds, no guarding, no rebound, no hepatosplenomegaly, no masses. EXTREMITIES: 2+ posterior tibial pulses, warm, well-perfused, no edema. NEUROLOGICAL: Cranial nerves II through XII grossly intact. Laboratory Results - last 24 hr 09/21/16 09/21/16 09/21/16 09:10 16:45 21:30 WBC RBC Hgb Hct MCV MCH MCHC RDW Plt Count MPV Sodium Potassium Chloride Carbon Dioxide Anion Gap BUN Creatinine POC Glucometer 109 Random Glucose Calcium Troponin I < 0.02 Urine Color Ltyellow Urine Appearance Slcloudy Urine pH 7.0 Ur Specific [place] 1.010 Urine Protein 2+ H Urine Glucose (UA) Negative Urine Ketones Negative Urine Blood 1+ H Urine Nitrite Negative Urine Bilirubin Negative Urine Urobilinogen Negative Ur Leukocyte Esterase 3+ H 09/22/16 09/22/16 09/22/16 02:20 06:19 11:10 WBC RBC Hgb Hct MCV MCH MCHC RDW Plt Count MPV Sodium 133 L Potassium 4.7 Chloride 95 L Carbon Dioxide 27 Anion Gap 11 BUN 46 H D Creatinine 8.1 H* D POC Glucometer 88 101 Random Glucose 130 H D Calcium 8.1 L Troponin I Urine Color Urine Appearance Urine pH Ur Specific [place] Urine Protein Urine Glucose (UA) Urine Ketones Urine Blood Urine Nitrite Urine Bilirubin Urine Urobilinogen Ur Leukocyte Esterase 09/22/16 09/22/16 11:10 14:29 WBC 3.4 L RBC 2.96 L Hgb 9.2 L Hct 28.2 L MCV 95.1 MCH 31.0 MCHC 32.6 RDW 16.1 H Plt Count 262 MPV 9.3 Sodium Potassium Chloride Carbon Dioxide Anion Gap BUN 9 D Creatinine 2.0 H D POC Glucometer Random Glucose Calcium Troponin I Urine Color Urine Appearance Urine pH Ur Specific [place] Urine Protein Urine Glucose (UA) Urine Ketones Urine Blood Urine Nitrite Urine Bilirubin Urine Urobilinogen Ur Leukocyte Esterase Active Medications Generic Name Dose Route Start Last Admin Trade Name Freq PRN Reason Stop Dose Admin Acetaminophen 650 mg 09/20/16 22:29 09/21/16 09:36 Tylenol - PO 650 mg Q4H PRN Administration FEVER OR PAIN Amlodipine Besylate 5 mg 09/21/16 10:00 09/22/16 16:01 Norvasc - PO 5 mg DAILY [facility] Administration Aspirin 81 mg 09/21/16 10:00 09/22/16 16:00 Asa - PO 81 mg DAILY [facility] Administration Carvedilol 6.25 mg 09/22/16 16:15 09/22/16 17:26 Coreg - PO 6.25 mg BID [facility] Administration Gabapentin 100 mg 09/20/16 22:00 09/21/16 21:27 Neurontin - PO 100 mg HS [facility] Administration Heparin Sodium (Porcine) 5,000 unit 09/20/16 22:00 09/22/16 16:00 Heparin - SQ 5,000 unit BID [facility] Administration Ceftriaxone Sodium 1 gm/ 50 mls @ 100 mls/hr 09/22/16 16:15 09/22/16 16:15 Dextrose IVPB Not Given DAILY [facility] Isoniazid 300 mg 09/21/16 10:00 09/22/16 16:01 Inh - PO 300 mg DAILY [facility] Administration Pyridoxine HCl 100 mg 09/21/16 10:00 09/22/16 16:01 Vitamin B6 - PO 100 mg DAILY [facility] Administration ASSESSMENT/PLAN: 70 y/o F with PMH HTN s/p quadruple bypass, ESRD (dialysis Monday, , Monday), + PPD (on meds), [place] (13 years ago), who presented to ED with dizziness for 2 days. Pt admitted to med-surg for altered mental status r/o sepsis. #Acute metabolic encephalopathy secondary to UTI -Pt afebrile, without leukocytosis -pt verbal today -UA (09/21): 2+ protein, 1+ blood, 3+ leuk esterase- suggestive of UTI-pt started on Levaquin 750mg PO daily (today is Day1) -F/u blood and urine cx -F/u orthostatics #r/o other etiologies: -F/u TSH, Free t3, T4 -Head CT: WNL -Nephro consulted: Dr. Mosquera -ID consulted: Dr. Vela #ESRD -pt received dialysis today -Nephro consulted: Dr. Mosquera -F/u BMP, CBC #HTN- controlled -Continue aspirin 81 mg PO, amlodipine 5 mg PO, carvedilol 6.25 mg PO BID #Hypothermia-resolved #DVT prophylaxis -SCD's b/l -Heparin 5000U SQ BID F/E/N -Currently not on fluids as pt ESRD pt, will need to re-evaluate -Monitor electrolytes closely -Regular diet Dispo -Need to be seen by PT, can arrange then for D/c Visit type - Emergency Visit Emergency Visit: No - New Patient This patient is new to me today: No - Critical Care Critical Care patient: No - Discharge Referral Referred to [facility] Med P.C.: No
[2016-09-22] MEDS: ACETAMINOPHEN 325 MG TABLET (FP) PO PRN (21:46)
[2016-09-22] MEDS: GABAPENTIN 100 MG CAPSULE (FP) PO SCH (21:46)
[2016-09-22] MEDS ORDERED: CARVEDILOL 6.25 MG TABLET (FP) PO SCH (22:00)
--- NOTE | 2016-09-23 08:17 | PN ---
Teaching Attending Note Name of Resident: Yanni Sykes ATTENDING PHYSICIAN STATEMENT I saw and evaluated the patient. I reviewed the resident's note and discussed the case with the resident. I agree with the resident's findings and plan as documented. SUBJECTIVE: No specific complaints OBJECTIVE: Vitals noted ASSESSMENT AND PLAN: Appreciate risk consultant input PT evaluation stated safe ambulation Continue po antibiotics for UTI, changing to Keflex Anticipate discharge today See resident note for full details
[2016-09-23] MEDS ORDERED: PT OWN MED DRAWER 7, Y5N ONE (10:06)
[2016-09-23] MEDS ORDERED: DEXTROSE 5%-WATER - 50 ML IVPB ONE (10:06)
[2016-09-23] MEDS ORDERED: cefTRIAXone SODIUM 1 GM VIAL ONE (10:06)
[2016-09-23] MEDS: CEFTRIAXONE 1 GM in DEXTROSE 5%-WATER - 50 ML IVPB SCH (10:09)
[2016-09-23] MEDS: CARVEDILOL 6.25 MG TABLET (FP) PO SCH (10:12)
[2016-09-23] MEDS: ASPIRIN 81 MG CHEWABLE TABLETS PO SCH (10:12)
[2016-09-23] MEDS: ISONIAZID 300 MG TABLET (FP) PO SCH (10:13)
[2016-09-23] MEDS: HEPARIN NA (PORCINE) 5,000 UNITS/ML 1ML VIAL SQ SCH (10:13)
[2016-09-23] MEDS: amLODIPine BESYLATE 5 MG TABLET (FP) PO SCH (10:14)
[2016-09-23] MEDS: PYRIDOXINE HCL (B-6) 100 MG TABLET PO SCH (10:14)
[2016-09-23 13:28] VITALS: BP 144/64; PULSE 70; TEMP 98.1
--- NOTE | 2016-09-23 14:13 | PN ---
Progress Note, Physician History of Present Illness: Pt seen and examined at bedside. She is awake and alert. She has no complaints. She says that she is scheduled for discharge today. - Objective Vital Signs: Vital Signs Temperature 98.1 F 09/23/16 13:25 Pulse Rate 70 09/23/16 13:25 Respiratory Rate 20 09/23/16 13:25 Blood Pressure 144/64 09/23/16 13:25 O2 Sat by Pulse Oximetry (%) 99 09/22/16 21:00 Constitutional: Yes: Calm Eyes: Yes: Conjunctiva Clear HENT: Yes: Atraumatic Cardiovascular: Yes: S1, S2 Respiratory: Yes: CTA Bilaterally Gastrointestinal: Yes: Soft Genitourinary: Yes: WNL Musculoskeletal: Yes: WNL Edema: No Neurological: Yes: Oriented Psychiatric: Yes: Oriented Labs: CBC, BMP 09/22/16 11:10 09/22/16 14:29 INR, PTT INR 1.30 (0.82-1.09) H 09/20/16 11:07 Problem List - Problems (1) ESRD (end stage renal disease) Code(s): N18.6 - END STAGE RENAL DISEASE (2) CAD (coronary artery disease) Code(s): I25.10 - ATHSCL HEART DISEASE OF [place] CORONARY ARTERY W/O ANG PCTRS Assessment/Plan Impression 1. ESRD 2. HTN 3. vertigo 4. DM 5. CAD 6. UTI Plan - pt has HD scheduled as outpt tomorrow - discussed care with her son, who is at bedside - rest of care per primary team - blood cultures negative to date - abg 3 hrs 2k bath 1000 heparin, epogen 4000
--- NOTE | 2016-09-23 14:57 | DS ---
Physical Exam: SUBJECTIVE: Patient seen and examined at bedside today. Pt resting comfortably, talking on phone. Denies dizziness. OBJECTIVE: Vital Signs Period Temp Pulse Resp BP Sys/Rodriguez Pulse Ox Last 24 Hr 97.5 F-98.5 F 63-78 18-20 132-165/47-72 99-100 PHYSICAL EXAM GENERAL: The patient is awake, alert, and fully oriented, in no acute distress. HEAD: Normal with no signs of trauma. EYES: PERRL, extraocular movements intact, sclera anicteric, conjunctiva clear. ENT: Ears normal, nares patent, oropharynx clear without exudates, moist mucous membranes. NECK: Trachea midline, supple. LUNGS: Breath sounds equal, clear to auscultation bilaterally, no wheezes, no crackles, no accessory muscle use. HEART: Regular rate and rhythm, S1, S2 without murmur, rub or gallop. ABDOMEN: Soft, nontender, nondistended, normoactive bowel sounds, no guarding, no rebound, no hepatosplenomegaly, no masses. EXTREMITIES: 2+ posterior tibial pulses, warm, well-perfused, no edema. NEUROLOGICAL: Cranial nerves II through XII grossly intact. LABS 09/20/16 09/20/16 09/20/16 11:07 11:07 11:07 WBC 9.7 Hgb 11.3 Hct 35.4 Plt Count 307 INR 1.30 H PTT (Actin FS) 38.5 H D Mixed VBG HCO3 Sodium Potassium Cancelled Chloride Cancelled BUN Cancelled Creatinine Cancelled Random Glucose Calcium Cancelled Phosphorus Magnesium AST Cancelled ALT Cancelled Total Protein Cancelled Albumin Cancelled 09/20/16 09/21/16 09/21/16 11:35 07:50 07:50 WBC 4.4 D Hgb 9.9 L D Hct 30.7 L Plt Count 268 INR PTT (Actin FS) Mixed VBG HCO3 25.1 H Sodium 135 L Potassium 4.3 Chloride 99 BUN 36 H D Creatinine 6.1 H D Random Glucose Calcium 8.7 Phosphorus 6.1 H D Magnesium 2.6 H AST ALT Total Protein Albumin 09/22/16 09/22/16 11:10 11:10 WBC 3.4 L Hgb 9.2 L Hct 28.2 L Plt Count 262 INR PTT (Actin FS) Mixed VBG HCO3 Sodium 133 L Potassium 4.7 Chloride 95 L BUN Creatinine Random Glucose 130 H D Calcium 8.1 L Phosphorus Magnesium AST ALT Total Protein Albumin Microbiology 09/20/16 11:07 Blood - Peripheral Venous Blood Culture - Preliminary NO GROWTH OBTAINED AFTER 72 HOURS, INCUBATION TO CONTINUE FOR 2 DAYS. 09/20/16 11:07 Blood - Peripheral Venous Blood Culture - Preliminary NO GROWTH OBTAINED AFTER 72 HOURS, INCUBATION TO CONTINUE FOR 2 DAYS. IMAGING 09/20/16: CXR: cannot exclude mild congestive changes, possible small early infiltrate at L base 09/20/16: EKG: normal sinus rhythm, prolonged QT : Head CT: no intracranial pathology HOSPITAL COURSE: Date of Admission:09/20/16 Date of Discharge: 09/23/16 Admit diagnosis: acute metabolic encephalopathy secondary to UTI Pre-admission course 70 y/o F with PMH HTN s/p quadruple bypass, ESRD (dialysis Monday, , Monday), + PPD (on meds), [place] (13 years ago), who presented to ED with dizziness for 2 days. As per patient's daughter, 2 days ago, patient told her daughter that she was feeling dizzy. Family thought it was not a problem. However, when patient went to dialysis this morning, the dizziness persisted as she had trouble walking. The staff at dialysis told the family at 8:30 this morning that she would need to go to the hospital for this reason. Over the past day, the patient has been unable to speak and respond to her family. At baseline, she is talkative. Her arms and legs have been shaking continually. Daughter states that mother has just been moaning in pain. As per pt's daughter, she receives medical treatment from [facility]. ER course was notable for: (1) CXR: cannot exclude mild congestive changes, small early infiltrate L base (2) EKG: NSR, prolonged QT (3) Head CT: no changes or acute intracranial pathology (4) Morphine 2mg IVPush once, acetaminophen 975 mg PO once Hospital course Pt's UA returned suggestive of UTI (2+ protein, 1+ blood, 3+ leukocyte esterase) , pt received 2 doses of Rocephin 1gm IVPB and was then transitioned to Levaquin 750mg PO (1 day course). As treatment began, pt was was verbal once again. This most likely explained pt's altered mental status. Pt is being discharged on keflex 250mg PO BID for 7 additional days. She will also continue dialysis upon d/c. Minutes to complete discharge: 32 Discharge Summary Reason For Visit: ALTERED MENTAL STATUS Condition: Stable - Instructions Diet, Activity, Other Instructions: You were recently in the hospital for an infection in your urinary tract. You may resume activity as tolerated. Please continue your dialysis sessions. We would also like you to take the following antibiotic starting today: Keflex 250mg (1 tablet) twice a day for 7 days, starting today You may continue your other home medications. We are also giving you a prescription for a walker. If you develop chest pain, shortness of breath, or any new symptoms, please go to the hospital. We hope you feel better soon. Referrals: Yadira Mosquera MD [Staff Physician] - Disposition: HOME - Home Medications Comprehensive Discharge Medication List: Ambulatory Orders Aspirin [ASA -] 81 mg PO DAILY 07/24/15 Amlodipine Besylate 5 mg PO DAILY 09/20/16 Carvedilol 6.25 mg PO BID 09/20/16 Gabapentin 100 mg PO HS 09/20/16 Isoniazid 300 mg PO DAILY 09/20/16 Pyridoxine HCl [Vitamin B-6] 100 mg PO DAILY 09/20/16 Cephalexin [Keflex] 250 mg PO BID #14 capsule 09/23/16 Walker [Ultra-Light Rollator] 1 each [facility] DAILY #1 each 09/23/16 This patient is new to me today: No Emergency Visit: No Critical Care patient: No - Discharge Referral Referred to [facility] Med P.C.: No
[2016-09-25 06:36] LABS: HEP B SURFACE AB Non Reactive (.)
== END 2016-09-23 14:06 | disposition home or self-care (01) | DRG 52 ==
LOC: JER 10:36 → JERBED 15:48 → J7W 23:54
PROVIDERS: ADMIT Internal Medicine; ATTEND Internal Medicine
PROC: 5A1D60Z (ICD-10-PCS; principal; 2016-09-22)
DX: G93.41 Metabolic encephalopathy (principal); N39.0 Urinary tract infection, site not specified; R41.82 Altered mental status, unspecified; I12.0 Hypertensive chronic kidney disease with stage 5 chronic kidney disease or end stage renal disease; N18.6 End stage renal disease; Z99.2 Dependence on renal dialysis; I25.10 Atherosclerotic heart disease of native coronary artery without angina pectoris; E11.22 Type 2 diabetes mellitus with diabetic chronic kidney disease; Z95.1 Presence of aortocoronary bypass graft; D53.9 Nutritional anemia, unspecified; R68.0 Hypothermia, not associated with low environmental temperature; I45.81 Long QT syndrome
CPT/HCPCS: 36415; 70450-TC; 71010-TC; 80048; 80053; 81003; 82565; 82803; 83605; 83735; 84100; 84439; 84443; 84484; 84520; 85025; 85027; 85610; 85730; 86704; 86706; 86708; 86803; 86850; 86900; 86901; 87040; 87086; 87340; 93005; 93010; 97116-GP; 97161-GP; 99285-25; J0885; J1644

== ENCOUNTER 2017-09-10 18:07 | Emergency (ER) | payer OTHER ==
[2017-09-10 18:24] VITALS: BMI 30.5
[2017-09-10] MEDS ORDERED: ONDANSETRON 4 MG/2 ML VIAL IVPUSH ONE (19:16)
[2017-09-10] MEDS ORDERED: ONDANSETRON *ODT* 4 MG TABLET SL ONE (20:46)
[2017-09-10] MEDS ORDERED: PANTOPRAZOLE SODIUM 40 MG VIAL IVPUSH ONE (20:54)
[2017-09-10 21:02] LABS: BASO % 1.1 % (0-2.0); EOS % 1.3 % (0-4.5); HEMATOCRIT 31.5 % (32.4-45.2); HEMOGLOBIN 10.5 GM/dL (10.7-15.3); LYMPH % 24.4 % (8-40); MCH 30.4 pg (25.7-33.7); MCHC 33.3 g/dl (32.0-36.0); MEAN CELL VOLUME 91.4 fl (80-96); MEAN PLT VOLUME 9.1 fl (7.5-11.1); MONO % 8.5 % (3.8-10.2); NEUT % 64.7 % (42.8-82.8); PLATELET COUNT 401 K/MM3 (134-434); RBC 3.45 M/mm3 (3.60-5.2); RDW 16.2 % (11.6-15.6)
--- NOTE | 2017-09-10 21:14 | PDOC ---
History of Present Illness - General Chief Complaint: Weakness Stated Complaint: WEAKNESS Time Seen by Provider: 09/10/17 18:31 - History of Present Illness Initial Comments: 71yo F with PMH of ESRD (dialysis , Mon), [place] 14 years ago s/p quadruple bypass, DM, HTN presenting with diarrhea, nausea, general weakness, and poor appetite. Family reports that the patient was seen at OSH ([facility]) and was admitted for c.diff for one week and discharged Monday. Patient was prescribed Vancomycin 500 and she finished the full course. About a year and a half ago, patient suffered an intestinal perforation and she had an intestinal herniation as a complication of surgical intervention. Denies fever, chills, nausea, vomiting, chest pain, or shortness of breath. Past History - Past Medical History Allergies/Adverse Reactions: Allergies Allergy/AdvReac Type Severity Reaction Status Date / Time No Known Allergies Allergy Verified 09/20/16 11:41 Home Medications: Ambulatory Orders Aspirin [ASA -] 81 mg PO DAILY 07/24/15 Amlodipine Besylate 5 mg PO DAILY 09/20/16 Carvedilol 6.25 mg PO BID 09/20/16 Gabapentin 100 mg PO HS 09/20/16 Isoniazid 300 mg PO DAILY 09/20/16 Pyridoxine HCl [Vitamin B-6] 100 mg PO DAILY 09/20/16 Cephalexin [Keflex] 250 mg PO BID #14 capsule 09/23/16 Walker [Ultra-Light Rollator] 1 each MC DAILY #1 each 09/23/16 Anemia: Yes Asthma: Yes COPD: No Diabetes: Yes Dialysis: Yes (, , ) HTN: Yes - Surgical History Cardiac Surgery: Yes (QUAD BYPASS) - Immunization History Td Vaccination: (UNKNOWN) Immunization Up to Date: Yes (FLU AND PNA) - Suicide/Smoking/Psychosocial Hx Smoking Status: No Smoking History: Never smoked Have you smoked in the past 12 months: No Number of Cigarettes Smoked Daily: 0 Cigars Per Day: 0 Hx Alcohol Use: No Drug/Substance Use Hx: No Substance Use Type: None Hx Substance Use Treatment: No Review of Systems - Review of Systems Comments:: Constitutional: no fever, no chills Cardiovascular: no chest pain, no palpitations Respiratory: no cough, no shortness of breath Gastrointestinal: +abdominal pain, +nausea, no vomiting, +diarrhea Genitourinary: no dysuria, no frequency Musculoskeletal: no myalgia, no arthralgia Skin: no rash, no itching Neurologic: +weakness, no headache *Physical Exam - Vital Signs Last Vital Signs Temp Pulse Resp BP Pulse Ox 98.7 F 87 20 108/56 97 09/10/17 18:21 09/10/17 18:21 09/10/17 18:21 09/10/17 18:21 09/10/17 18:21 - Physical Exam Comments: General: Awake, alert, and fully oriented, in no acute distress Head: no signs of trauma Eyes: EOMI, sclera anicteric ENT: Moist mucus membranes, Neck: Normal ROM, supple Lungs: Lungs clear, Normal breath sounds Cardio: Regular rhythm, S1 and S2 present Abdomen: Left ventral hernia, reducible and tender to palpation; Soft, normal bowel sounds. Extremities: Normal range of motion, Distal pulses present. SKIN: Warm, Dry, normal turgor, no rashes or lesions noted Neurologic: Cranial nerves II through XII grossly intact. Normal speech ED Treatment Course - LABORATORY CBC & Chemistry Diagram: 09/10/17 20:45 09/10/17 20:45 - ADDITIONAL ORDERS Additional order review: 09/10/17 20:45 RBC 3.45 L MCV 91.4 MCHC 33.3 RDW 16.2 H MPV 9.1 Neutrophils % 64.7 Lymphocytes % 24.4 D Monocytes % 8.5 Eosinophils % 1.3 Basophils % 1.1 - RADIOLOGY Radiology Studies Ordered: Category Date Time Status ABDOMEN & PELVIS CT W/O CONTR [CT] Stat CT Scan 09/10/17 20:51 Ordered CXRPORT [CHEST X-RAY PORTABLE*] [RAD] Stat Radiology 09/10/17 19:15 Ordered Medical Decision Making - Medical Decision Making 71yo F with black diarrhea x 2 weeks. Patient has felt "gassy" and burping on exam. History of intestinal hernia, tender to palpation, and reducible. Patient was admitted to OSH for c. diff last week, finished course of vancomycin, and continues to have diarrhea. Differential includes GI bleed, obstructive process , C. diff colitis. 09/10/17 21:18 FOBT negative. Awaiting imaging. 09/10/17 22:28 CT abdomen/pelvis unremarkable. Plan to discharge patient. Instructed her to follow-up with primary care provider. Patient and family are amenable to plan. 09/10/17 23:40 *DC/Admit/Observation/Transfer Diagnosis at time of Disposition: C. difficile colitis - Discharge Dispostion Disposition: HOME Condition at time of disposition: Stable - Referrals - Patient Instructions Printed Discharge Instructions: DI for Antibiotic -- associated Colitis -- C difficile Additional Instructions: You were seen in the ED for diarrhea. We performed a workup that included CT imaging which was unremarkable. You were given a copy of the report. You also do not have a GI bleed. Follow-up with your primary care physician this week. - Post Discharge Activity
[2017-09-10 21:16] LABS: INR 1.04 (0.83-1.09); PROTHROMBIN TIME (PATIENT) 11.8 SEC (9.7-13.0)
[2017-09-10 21:25] LABS: ALBUMIN 3.5 g/dl (3.4-5.0); ANION GAP 15 (8-16); BLOOD UREA NITROGEN 87 mg/dL (7-18); CALCIUM 9.5 mg/dL (8.5-10.1); CHLORIDE 96 mmol/L (98-107); CO2 22 mmol/L (21-32); CREATININE 6.7 mg/dL (0.55-1.02); GLUCOSE,RANDOM 100 mg/dL (74-106); POTASSIUM 5.1 mmol/L (3.5-5.1); SGOT/AST 14 U/L (15-37); SGPT/ALT 25 U/L (12-78); SODIUM 133 mmol/L (136-145)
[2017-09-10 21:29] LABS: ALK PHOS 200 U/L (45-117); BILIRUBIN,TOTAL 0.5 mg/dL (0.2-1.0); TOT PROT 7.3 g/dl (6.4-8.2)
[2017-09-10 21:30] LABS: LIPASE 1099 U/L (73-393)
[2017-09-10] MEDS ORDERED: ONDANSETRON 4 MG/2 ML VIAL ONE (22:41)
--- NOTE | 2017-09-10 23:46 | PDOC ---
Attending Attestation - Resident Resident Name: Adeline Shepard - ED Attending Attestation I have performed the following: I have examined & evaluated the patient, The case was reviewed & discussed with the resident, I agree w/resident's findings & plan, Exceptions are as noted - HPI HPI: 09/10/17 23:43 71-year-old female brought in by ambulance from home for persistent diarrhea . Patient was recently discharged [facility] on August 26 after being found to have culture positive for C. difficile colitis. She was started on vancomycin by mouth for her C. difficile colitis. The patient is afebrile - Physicial Exam PE: 09/10/17 23:47 71 yo female Well-nourished well dev brought in by ambulance from home for persistent diarrhea Head normocephalic/atraumatic. Neck is supple Lungs are clear to auscultation. CVS regular rate and rhythm. Right arm dialysis access. + Bruit and thrill Abdomen reducible ventral hernia. Extremities - no pitting edema. rectal exam no decibitus ulcers,nl tone,no blood Neurologically alert and oriented 3. Skin is warm and dry, no rashes. No vesicles psych appropriate - Medical Decision Making 09/10/17 23:52 Review of labs shows normal potassium, CBC unremarkable. Elevated BUN, creatinine, consistent with end-stage renal disease. Patient's next dialysis is on Monday
[2017-09-11 00:44] VITALS: BP 134/66; TEMP 98.2
[2017-09-11 00:50] VITALS: PULSE 78
--- NOTE | 2017-09-11 11:47 | EKG ---
Test Reason : Blood Pressure : / mmHG Vent. Rate : 084 BPM Atrial Rate : 084 BPM P-R Int : 238 ms QRS Dur : 104 ms QT Int : 388 ms P-R-T Axes : 022 016 097 degrees QTc Int : 458 ms SINUS RHYTHM WITH 1ST DEGREE A-V BLOCK MINIMAL VOLTAGE CRITERIA FOR LVH, MAY BE NORMAL VARIANT T WAVE ABNORMALITY, CONSIDER LATERAL ISCHEMIA ABNORMAL ECG WHEN COMPARED WITH ECG OF 20-SEP-2016 10:58, [place] INTERVAL HAS INCREASED T WAVE INVERSION NOW EVIDENT IN LATERAL LEADS Confirmed by MANDA CLARK MD ([id number]) on 09/11/2017 11:47:29 AM Referred By: Confirmed By:MANDA CLARK MD
== END 2017-09-11 00:29 | disposition home or self-care (01) ==
LOC: JER 18:07
PROC: 3E033GC Introduction of Other Therapeutic Substance into Peripheral Vein, Percutaneous Approach (ICD-10-PCS; principal; 2017-09-10)
DX: A04.72 Enterocolitis due to Clostridium difficile, not specified as recurrent (principal)
CPT/HCPCS: 36415; 71045-TC-FY; 74176-TC; 80053; 82272; 82550; 83690; 84484; 85025; 85610; 86850; 86900; 86901; 93005; 93010; 99282-25

== ENCOUNTER 2017-09-19 07:06 | Inpatient (IN) | payer OTHER ==
--- NOTE | 2017-09-19 07:32 | PDOC ---
Attending Attestation - HPI HPI: 09/19/17 08:19 The patient is a 71 year old female, with a significant PMH of ESRD (dialysis T , Th, Sat), [place] 14 years ago s/p quadruple bypass, DM and HTN who presents to the emergency department with chest pain this morning. The patient states non radiating chest pain began this morning before dialysis and is located to the left anterior chest wall with a severity of 10/10. The patient states chest pain is accompanied with diarrhea, nausea, fatigue, and mild SOB. The patient mentions last episode of diarrhea was around 5 am this morning. The patient also reports abdomen pain secondary to her hernia. The patient denies chest pain, headache and dizziness. Denies fever, chills, vomit, diarrhea and constipation. Denies dysuria, frequency, urgency and hematuria. Allergies: NKDA Past surgical history: None reported Social history: None reported PCP: None reported Documentation prepared by Anais Adam, acting as medical delivery technician for Haroldo Barnett MD. - Physicial Exam PE: 09/19/17 08:14 Vitals: Triage vital signs reviewed General Appearance: No acute distress, well nourished, well developed Chest Wall: Nontender Cardiac: Regular rate and rhythm, no murmurs, no rubs, no gallops Lungs: Clear to auscultation bilateral, good air movement bilaterally Abdomen: +Mild epigastric discomfort. Extremities: Full range of motion to all extremities, no cyanosis, clubbing, or edema Skin: Warm and dry, no rashes or lesions, no rash, no petechiae Neuro: AOX3; Cranial Nerves 2-12 grossly intact, Strength intact to all extremities, Sensation intact to all extremities, gait normal Psych: Normal mood, normal affect Documentation prepared by Anais Adam, acting as medical delivery technician for Haroldo Barnett MD. - Medical Decision Making 09/19/17 08:[address] Mosquera. Awaiting call back 09/19/17 08:56 Dr. Mosquera called back nd discussed case with Dr. Welsh. <Anais Adam - Last Filed: 09/19/17 08:50> - Resident Resident Name: Alo Welsh - ED Attending Attestation I have performed the following: I have examined & evaluated the patient, The case was reviewed & discussed with the resident, I agree w/resident's findings & plan, Exceptions are as noted - Medical Decision Making 71 year old female, with a significant PMH of ESRD (dialysis T, Th, Sat), [place] 14 years ago s/p quadruple bypass, DM and HTN who presents to the emergency department with chest pain this morning EKG demonstrates sinus rhythm with first-degree AV block no ST elevations no T- wave inversions Q wave in lead 3 Troponin negative Hyperkalemia noted on patient's labs Hyperkalemic cocktail ordered renal consult to We'll admit to medicine for cardiac rule out and dialysis <Haroldo Barnett - Last Filed: 09/19/17 13:21>
[2017-09-19 08:27] LABS: BASO % 0.8 % (0-2.0); EOS % 1.9 % (0-4.5); HEMATOCRIT 29.2 % (32.4-45.2); HEMOGLOBIN 9.8 GM/dL (10.7-15.3); LYMPH % 18.1 % (8-40); MCH 31.1 pg (25.7-33.7); MCHC 33.7 g/dl (32.0-36.0); MEAN CELL VOLUME 92.3 fl (80-96); MEAN PLT VOLUME 9.6 fl (7.5-11.1); MONO % 7.2 % (3.8-10.2); PLATELET COUNT 301 K/MM3 (134-434); RBC 3.16 M/mm3 (3.60-5.2); RDW 16.7 % (11.6-15.6); WHITE BLOOD COUNT 9.6 K/mm3 (4.0-10.0)
--- NOTE | 2017-09-19 08:27 | PDOC ---
History of Present Illness - General Chief Complaint: Chest Pain Stated Complaint: Chest Pain Time Seen by Provider: 09/19/17 07:18 - History of Present Illness Initial Comments: 09/19/17 08:26 71yo F with PMH of ESRD (dialysis , , Mon), [place] 14 years ago s/p quadruple bypass, DM, HTN presenting with diarrhea, nausea, general weakness, and poor appetite. Family reports that the patient was seen at OSH ([place]) and was admitted for c.diff for one week in late August, presents today for diarrhea all night. Seen in this ED on September 10 for persistent diarrhea, had unremarkable CT, sent home on antibiotics. Past History - Past Medical History Allergies/Adverse Reactions: Allergies Allergy/AdvReac Type Severity Reaction Status Date / Time No Known Allergies Allergy Verified 09/20/16 11:41 Home Medications: Ambulatory Orders Aspirin [ASA -] 81 mg PO DAILY 07/24/15 Amlodipine Besylate 5 mg PO DAILY 09/20/16 Carvedilol 6.25 mg PO BID 09/20/16 Gabapentin 100 mg PO HS 09/20/16 Isoniazid 300 mg PO DAILY 09/20/16 Pyridoxine HCl [Vitamin B-6] 100 mg PO DAILY 09/20/16 Cephalexin [Keflex] 250 mg PO BID #14 capsule 09/23/16 Walker [Ultra-Light Rollator] 1 each MC DAILY #1 each 09/23/16 Anemia: Yes Asthma: Yes COPD: No Diabetes: Yes Dialysis: Yes (, , ) HTN: Yes - Surgical History Cardiac Surgery: Yes (QUAD BYPASS) - Immunization History Td Vaccination: (UNKNOWN) Immunization Up to Date: Yes (FLU AND PNA) - Suicide/Smoking/Psychosocial Hx Smoking Status: No Smoking History: Never smoked Have you smoked in the past 12 months: No Number of Cigarettes Smoked Daily: 0 Cigars Per Day: 0 Hx Alcohol Use: No Drug/Substance Use Hx: No Substance Use Type: None Hx Substance Use Treatment: No *Physical Exam - Vital Signs Last Vital Signs Temp Pulse Resp BP Pulse Ox 98.7 F 67 20 154/64 98 09/19/17 07:29 09/19/17 07:29 09/19/17 07:29 09/19/17 07:29 09/19/17 07:46 ED Treatment Course - LABORATORY CBC & Chemistry Diagram: 09/19/17 07:56 09/19/17 07:56 - RADIOLOGY Radiology Studies Ordered: Category Date Time Status CHEST PA & LAT [RAD] Stat Radiology 09/19/17 07:50 Ordered Medical Decision Making - Medical Decision Making 09/19/17 08:[address] Mosquera who asked for the patient to be given d50, insulin and duoneb before dialysis 09/19/17 10:37 Patient admitted. *DC/Admit/Observation/Transfer Diagnosis at time of Disposition: Diarrhea, Dialysis patient - Discharge Dispostion Condition at time of disposition: Improved Decision to Admit order: Yes - Referrals - Patient Instructions - Post Discharge Activity
[2017-09-19 08:30] LABS: ALBUMIN 3.3 g/dl (3.4-5.0); ANION GAP 20 (8-16); CALCIUM 9.6 mg/dL (8.5-10.1); CHLORIDE 92 mmol/L (98-107); CO2 18 mmol/L (21-32); GLUCOSE,RANDOM 117 mg/dL (74-106); SGPT/ALT 27 U/L (12-78); SODIUM 130 mmol/L (136-145)
[2017-09-19 08:32] LABS: ALK PHOS 164 U/L (45-117); BILIRUBIN,TOTAL 0.8 mg/dL (0.2-1.0); TOT PROT 6.5 g/dl (6.4-8.2)
[2017-09-19 08:40] LABS: POTASSIUM 5.7 mmol/L (3.5-5.1); SGOT/AST 23 U/L (15-37)
[2017-09-19 08:44] LABS: BLOOD UREA NITROGEN 135 mg/dL (7-18); CREATININE 8.1 mg/dL (0.55-1.02)
[2017-09-19 08:55] LABS: INR 0.89 (0.83-1.09); PROTHROMBIN TIME (PATIENT) 10.1 SEC (9.7-13.0)
[2017-09-19 08:58] LABS: ACTIVATED PTT 35.5 SECONDS (25.2-36.5)
[2017-09-19] MEDS ORDERED: DEXTROSE 50%-WATER - 25 GM/50 ML VIAL IVPUSH ONE (08:58)
[2017-09-19] MEDS ORDERED: ALBUTEROL SO4 0.083% IH SOL 2.5 MG/3 ML VIAL.NEB. NEB ONE ×2 (08:58→09:05)
[2017-09-19] MEDS ORDERED: INSULIN REGULAR HUMAN 100 UNITS/ML *VIAL SQ ONE (08:58)
[2017-09-19] MEDS ORDERED: DEXTROSE 50%-WATER 25 GM/50 ML DISP.SYRIN ONE (09:05)
[2017-09-19] MEDS ORDERED: INSULIN REGULAR HUMAN 100 UNITS/ML *VIAL ONE (09:06)
--- NOTE | 2017-09-19 11:45 | HP ---
CHIEF COMPLAINT: chest pain, fatigue PCP: HISTORY OF PRESENT ILLNESS: Patient is a 71 year old female with a significant PMH of ESRD (dialysis TThS) via right arm fistula. Other history includes NM, quadruple bypass, diabetes, hypertension. 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 She comes to the ED today with 10/10 chest pain that began this morning. Chest pain did not radiate, but she had shortness of breath with chest pain and unable to take in a deep breath. She also reports persistent diarrhea, fatigue and weakness. In August of this year patient was treated for cdiff and was sent home with PO antibiotics which she reports that she completed. She was then seen at [facility] on September 10 for the persistent diarrhea and was sent home on antibiotics. Denies fever, chills, nausea, vomiting, chest pain, or shortness of breath. ER course was notable for: (1) abd pelvis ct: no significnat inteval change, mild cardiomegaly. multiple gallstones seen without gross pericholecystatic free fluid. large left paramedial supraumilical fat containing hernia without herniating boiwel loops. , bilatera atrophic kidnesy with bilateral ex ophytic cysts. No CT evidence of acute process in the abdomen. and pelvis. (2) chest pain (3) trops negative, elevated K, (4) EKG demonstrates sinus rhythm with first-degree AV block (5) 135/8.1 bun/creat Recent Travel: No Known Allergies Allergy (Verified 09/20/16 11:41) HOME MEDICATIONS: Home Medications Medication Instructions Recorded Aspirin [ASA -] 81 mg PO DAILY 07/24/15 Amlodipine Besylate 5 mg PO DAILY 09/20/16 Carvedilol 6.25 mg PO BID 09/20/16 Gabapentin 100 mg PO HS 09/20/16 Isoniazid 300 mg PO DAILY 09/20/16 Pyridoxine HCl [Vitamin B-6] 100 mg PO DAILY 09/20/16 Cephalexin [Keflex] 250 mg PO BID #14 capsule 09/23/16 Walker [Ultra-Light Rollator] 1 each MC DAILY #1 each 09/23/16 PHYSICAL EXAMINATION Vital Signs - 24 hr 09/19/17 09/19/17 09/19/17 07:29 07:46 10:10 Temperature 98.7 F 98.3 F Pulse Rate 67 Pulse Rate [ 78 Left Radial] Respiratory 20 20 Rate Blood Pressure 154/64 Blood Pressure 143/80 [Left Arm] O2 Sat by Pulse 98 98 98 Oximetry (%) GENERAL: Awake, alert, and fully oriented, reports fatigue HEAD: Normal with no signs of trauma. EYES: Pupils equal, round and reactive to light, extraocular movements intact, sclera anicteric, conjunctiva clear. No lid lag. EARS, NOSE, THROAT: Ears normal, nares patent, oropharynx clear without exudates. Moist mucous membranes. NECK: Normal range of motion, supple without lymphadenopathy, JVD, or masses. LUNGS: Breath sounds equal. diminished bilaterally. HEART: Regular rate and rhythm ABDOMEN: Soft, nontender, not distended, normoactive bowel sounds, no guarding, no rebound, no masses. umbilical hernia MUSCULOSKELETAL: Normal range of motion at all joints. No bony deformities or tenderness. No CVA tenderness. UPPER EXTREMITIES: right arm fistula LOWER EXTREMITIES: trace edema bilaterally NEUROLOGICAL: Normal speech. Normal gait. PSYCHIATRIC: Cooperative. Good eye contact. Appropriate mood and affect. SKIN: Warm, dry, normal turgor, no rashes or lesions noted, normal capillary refill. Laboratory Results - last 24 hr 09/19/17 09/19/17 09/19/17 07:56 07:56 07:56 WBC 9.6 RBC 3.16 L Hgb 9.8 L Hct 29.2 L MCV 92.3 MCH 31.1 MCHC 33.7 RDW 16.7 H Plt Count 301 D MPV 9.6 Absolute Neuts (auto) 6.9 Neutrophils % 72.0 Lymphocytes % 18.1 D Monocytes % 7.2 Eosinophils % 1.9 Basophils % 0.8 Nucleated RBC % 0 PT with INR 10.10 INR 0.89 PTT (Actin FS) 35.5 Sodium 130 L Potassium 5.7 H Chloride 92 L Carbon Dioxide 18 L Anion Gap 20 H BUN 135 H* D Creatinine 8.1 H* Creat Clearance w eGFR 4.86 Random Glucose 117 H Calcium 9.6 Total Bilirubin 0.8 AST 23 ALT 27 Alkaline Phosphatase 164 H D Troponin I < 0.02 Total Protein 6.5 Albumin 3.3 L ASSESSMENT/PLAN: Patient is a 71 year old female with a significant PMH of ESRD (dialysis TThS) via right arm fistula. Other history includes NM, quadruple bypass, diabetes, hypertension. 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 She comes to the ED today with 10/10 chest pain that began this morning. Chest pain did not radiate, but she had shortness of breath with chest pain and unable to take in a deep breath. She also reports persistent diarrhea, fatigue and weakness. In August of this year patient was treated for cdiff and was sent home with PO antibiotics (vanco) which she reports that she completed. She was then seen at [facility] on September 10 for the persistent diarrhea and was sent home on antibiotics. Patient will be evaluated for chest pain, shortness of breath and persistent diarrhea. Cardiology: Chest pain/Rule out ACS: chadsvasc score 6. trops and echo ordered. Monitor on tele. Cardiology consult Hypertension: elevated: On Norvasc 5mg, coreq 25mg bid. Monitor bp and consider increasing cardiac meds if remains elevated. Shortness of breath: chest xray with no acute process. On 2 liter supplemental oxygen. duonebs for shortness of breath. Monitor after dialysis. Endocrine: Diabetes: Novolog SS, BGMs, diabetic diet. GI: Persistent diarrhea/Rule out acute infection for fatigue/weakness: Blood cultures ordered. Patient makes very little urine, unable to send for urine culture. stool and c diff pending. Monitor on tele. Renal: ESRD: [facility] schedule, dialysis today. Nephro consulted: Dr. Mosquera. bun creat today 135/8.1, repeat labs post dialysis. fen renal diet no ivf 2/2 to esrd monitor electrolytes prophy: heparin tid ambulation physical therapy incentive spirometer full code Visit type - Emergency Visit Emergency Visit: Yes ED Registration Date: 09/19/17 Care time: The patient presented to the Emergency Department on the above date and was hospitalized for further evaluation of their emergent condition. - New Patient This patient is new to me today: Yes Date on this admission: 09/19/17 - Critical Care Critical Care patient: No Hospitalist Screening - Colonoscopy Questionnaire Colonoscopy Questionnaire: Colonoscopy Questionnaire - Patient: 50 - 75 years old and never had a screening colonoscopy: Unknown History of colon or rectal polyps, or CA: Unknown History of IBD, Crohn's disease or UC: Unknown History of abdominal radiation therapy as a child: Unknown - Relative: 1 with colon or rectal CA, or polyps at age 60 or younger: Unknown Colon or rectal CA diagnosed at age 45 or younger: Unknown Multiple relatives with colon or rectal CA: Unknown - Outcome: Screening Result: Negative Screen
--- NOTE | 2017-09-19 14:59 | CONSULT ---
Consult Consult Specialty:: Nephrology Reason for Consultation:: ESRD - History of Present Illness Chief Complaint: diarrhea History of Present Illness: Pt is a 71 year old female with pmhx of ESRD on a TTS schedule, CAD, CABG, DM and HTN who presents to the ER with diarrhea. She says she has had nausea and diarrhea for a few days. She denies fevers or chills. She denies chest pain and did complain of abdominal pain. She is awake and alert. She did go to HD this morning and was sent to the hospital as she did not feel well. She denies shortness of breath. She does have history of C.diff. - History Source History Provided By: Patient, Medical Record - Past Medical History Cardio/Vascular: Yes: CAD, HTN Renal/: Yes: Renal Failure, Hemodialysis Endocrine: Yes: Diabetes Mellitus - Past Surgical History Past Surgical History: Yes: AV Fistula/Graft, CABG - Alcohol/Substance Use Hx Alcohol Use: No - Smoking History Smoking history: Never smoked Have you smoked in the past 12 months: No Aproximately how many cigarettes per day: 0 Home Medications - Allergies Allergies/Adverse Reactions: Allergies Allergy/AdvReac Type Severity Reaction Status Date / Time No Known Allergies Allergy Verified 09/20/16 11:41 - Home Medications Home Medications: Ambulatory Orders RX: Aspirin [ASA -] 81 mg PO DAILY 07/24/15 RX: Amlodipine Besylate 5 mg PO DAILY 09/20/16 RX: Carvedilol 6.25 mg PO BID 09/20/16 RX: Gabapentin 100 mg PO HS 09/20/16 RX: Isoniazid 300 mg PO DAILY 09/20/16 RX: Pyridoxine HCl [Vitamin B-6] 100 mg PO DAILY 09/20/16 Cephalexin [Keflex] 250 mg PO BID #14 capsule 09/23/16 RX: Walker [Ultra-Light Rollator] 1 each MC DAILY #1 each 09/23/16 Family Disease History - Family Disease History Family History: Denies Review of Systems - Review of Systems Constitutional: reports: Malaise. denies: Chills, Fever Eyes: reports: No Symptoms HENT: reports: No Symptoms Neck: reports: No Symptoms Cardiovascular: reports: No Symptoms Respiratory: reports: No Symptoms Gastrointestinal: reports: Abdominal Pain, Diarrhea Genitourinary: reports: No Symptoms Musculoskeletal: reports: No Symptoms Integumentary: reports: No Symptoms Neurological: reports: No Symptoms Endocrine: reports: No Symptoms Hematology/Lymphatic: reports: No Symptoms Psychiatric: reports: No Symptoms Physical Exam Vital Signs: Vital Signs Temperature 97.6 F 09/19/17 12:25 Pulse Rate 65 09/19/17 14:30 Respiratory Rate 18 09/19/17 14:30 Blood Pressure 157/64 09/19/17 14:30 O2 Sat by Pulse Oximetry (%) 98 09/19/17 10:10 Constitutional: Yes: Calm Eyes: Yes: Conjunctiva Clear HENT: Yes: Atraumatic Cardiovascular: Yes: S1, S2 Respiratory: Yes: CTA Bilaterally Gastrointestinal: Yes: Soft Renal/: Yes: WNL Musculoskeletal: Yes: WNL Edema: No Neurological: Yes: Oriented Psychiatric: Yes: Oriented Labs: CBC, BMP 09/19/17 07:56 09/19/17 07:56 Laboratory Tests 09/19/17 09/19/17 07:56 07:56 WBC 9.6 Hgb 9.8 L Sodium 130 L Potassium 5.7 H Chloride 92 L Carbon Dioxide 18 L Anion Gap 20 H BUN 135 H* D Creatinine 8.1 H* Imaging - Results Chest X-ray: Report Reviewed Cat Scan: Report Reviewed Problem List - Problems (1) Diarrhea Code(s): R19.7 - DIARRHEA, UNSPECIFIED (2) ESRD (end stage renal disease) Code(s): N18.6 - END STAGE RENAL DISEASE Assessment/Plan Impression 1. ESRD 2. diarrhea 3. CAD 4. HTN 5. DM 6. hyperkalemia 7. anemia Plan - will arrange for today - will need workup for diarrhea, has history of C. Diff - will UF about 500 cc as she looks dry - will treat potassium with HD - discussed with ER earlier - called HD unit: 3 hrs, 350 abf, 2 k bath, avg, heparin 1000 units - monitor labs - will follow Dr Mosquera
--- NOTE | 2017-09-19 18:11 | CON.CARD ---
Consult Consult Specialty:: cardiology Reason for Consultation:: chest pain - History of Present Illness Chief Complaint: c/o chronic abdominal discomfort. History of Present Illness: The patient is a 71 year old female (b. Richy), with a significant PMH of ESRD (dialysis T, , Mon), [place] 14 years ago--> CABG--quadruple bypass, DM and HTN, who presents to the emergency department with chest pain this morning. The patient states non radiating chest pain began this morning before dialysis and is located to the left anterior chest wall with a severity of 10/10. The patient states chest pain is accompanied with diarrhea, nausea, fatigue, decreased appetitie,and mild SOB. The patient mentions last episode of diarrhea was around 5 am this morning. The patient also reports abdomen pain secondary to her hernia. - History Source History Provided By: Patient, Family Member (two sons), Medical Record Limitations to Obtaining History: No Limitations - Past Medical History Cardio/Vascular: Yes: CAD, CHF, HTN, [place] Renal/: Yes: Renal Failure, Hemodialysis Reproductive: Yes: Postmenopausal ...: No Heme/Onc: Yes: Anemia Psych: Yes: Anxiety Musculoskeletal: Yes: Chronic low back pain Endocrine: Yes: Diabetes Mellitus - Past Surgical History Past Surgical History: Yes: AV Fistula/Graft, CABG - Alcohol/Substance Use Hx Alcohol Use: No History of Substance Use: reports: None - Smoking History Smoking history: Never smoked Have you smoked in the past 12 months: No Aproximately how many cigarettes per day: 0 - Social History Usual Living Arrangement: With Child Home Medications - Allergies Allergies/Adverse Reactions: Allergies Allergy/AdvReac Type Severity Reaction Status Date / Time No Known Allergies Allergy Verified 09/20/16 11:41 - Home Medications Home Medications: Ambulatory Orders Aspirin [ASA -] 81 mg PO DAILY 07/24/15 Amlodipine Besylate 5 mg PO DAILY 09/20/16 Carvedilol 6.25 mg PO BID 09/20/16 Gabapentin 100 mg PO HS 09/20/16 Isoniazid 300 mg PO DAILY 09/20/16 Pyridoxine HCl [Vitamin B-6] 100 mg PO DAILY 09/20/16 Cephalexin [Keflex] 250 mg PO BID #14 capsule 09/23/16 Walker [Ultra-Light Rollator] 1 each MC DAILY #1 each 09/23/16 Family Disease History - Family Disease History Family History: Denies Review of Systems - Review of Systems Constitutional: reports: Weakness Eyes: reports: No Symptoms HENT: reports: No Symptoms Neck: reports: No Symptoms Cardiovascular: reports: Chest Pain Respiratory: reports: SOB on Exertion Gastrointestinal: reports: Abdominal Pain, Bloating, Nausea Genitourinary: reports: No Symptoms Breasts: reports: No Symptoms Reported Musculoskeletal: reports: Muscle Weakness Integumentary: reports: No Symptoms Neurological: reports: Weakness Endocrine: reports: No Symptoms Hematology/Lymphatic: reports: No Symptoms Psychiatric: reports: Anxiety, Depression - Risk Factors Known Risk Factors: Yes: Age, Hypertension, Physical Inactivity, Prior NH /Emb Stroke, Other (CABG; ESRD-->hemodialysis) Vital Signs: Vital Signs Temperature 97.6 F 09/19/17 12:25 Pulse Rate 66 09/19/17 15:47 Respiratory Rate 18 09/19/17 15:47 Blood Pressure 164/81 09/19/17 15:47 O2 Sat by Pulse Oximetry (%) 98 09/19/17 10:10 Constitutional: Yes: Anxious Eyes: Yes: WNL HENT: Yes: WNL Neck: Yes: WNL Respiratory: Yes: WNL Gastrointestinal: Yes: Soft, Other (abd hernia) Renal/: Yes: Other (hemodialysis) Heart Sounds: Yes: S1 (split), S2, S4 Murmur: Yes: Systolic Murmur, Grade 3 Musculoskeletal: Yes: Joint Stiffness, Muscle Weakness Extremities: Yes: Cool Edema: Yes Edema: LLE: Trace, RLE: Trace Peripheral Pulses WNL: Yes Neurological: Yes: Alert, Oriented, Weakness Psychiatric: Yes: Alert, Oriented - Other Data Labs, Other Data: CBC, BMP 09/19/17 07:56 09/19/17 07:56 INR, PTT INR 0.89 (0.83-1.09) 09/19/17 07:56 Troponin, BNP 09/19/17 09/19/17 07:56 12:30 Troponin I < 0.02 < 0.02 Troponin, BNP 09/19/17 09/19/17 07:56 12:30 Troponin I < 0.02 < 0.02 Echo: Pending Imaging - Results Chest X-ray: Image Reviewed (no acute pathology; large heart) EKG: Image Reviewed (NSR; 1st degree AV block; nonspecific T wave changes) Problem List - Problems (1) CHF (congestive heart failure) Assessment/Plan: F/u ECHO for LVEF, chamber sizes, valve status. Code(s): I50.9 - HEART FAILURE, UNSPECIFIED (2) Abdominal discomfort Assessment/Plan: abdominal protrusion, with hx hernia; pt has had tests in preparation for "hernia surgery". F/u with GI, surgeon. Code(s): R10.9 - UNSPECIFIED ABDOMINAL PAIN (3) Diarrhea Code(s): R19.7 - DIARRHEA, UNSPECIFIED (4) Hx of CABG Assessment/Plan: Pt had NH-->CABG over 10 years ago. Pt had workup "with three tests" (apparently including stress MIBI) about 3 months ago at [facility] in preparation for abdominal surgery. Will attempt to obtain records. Code(s): Z95.1 - PRESENCE OF AORTOCORONARY BYPASS GRAFT (5) ESRD (end stage renal disease) Assessment/Plan: hemodialysis per hot walker. Code(s): N18.6 - END STAGE RENAL DISEASE (6) Dialysis patient Code(s): Z99.2 - DEPENDENCE ON RENAL DIALYSIS (7) Atypical chest pain Assessment/Plan: TNI < 0.02. EKG: nonspecific T wave changes. F/u TNi and EKGs serially. Obtain records from [facility] (had stress MIBI a few months ago). Code(s): R07.89 - OTHER CHEST PAIN
[2017-09-19] MEDS: CARVEDILOL 6.25 MG TABLET (FP) PO SCH (21:18)
[2017-09-19] MEDS: ACETAMINOPHEN 325 MG TABLET (FP) PO PRN (21:18)
[2017-09-19] MEDS: HEPARIN NA (PORCINE) 5,000 UNITS/ML 1ML VIAL SQ SCH (21:19)
[2017-09-19] MEDS: INSULIN SLIDING SCALE (NOVOLOG) 1 VIAL SQ SCH (21:20)
[2017-09-19 21:25] LABS: ALBUMIN 3.2 g/dl (3.4-5.0); ALK PHOS 171 U/L (45-117); ANION GAP 12 (8-16); BILIRUBIN,TOTAL 0.3 mg/dL (0.2-1.0); BLOOD UREA NITROGEN 45 mg/dL (7-18); CALCIUM 8.8 mg/dL (8.5-10.1); CHLORIDE 99 mmol/L (98-107); CO2 28 mmol/L (21-32); GLUCOSE,RANDOM 88 mg/dL (74-106); SGPT/ALT 30 U/L (12-78); SODIUM 139 mmol/L (136-145); TOT PROT 6.5 g/dl (6.4-8.2)
[2017-09-19 21:28] LABS: POTASSIUM 4.4 mmol/L (3.5-5.1); SGOT/AST 25 U/L (15-37)
[2017-09-19] MEDS ORDERED: ALBUTEROL SO4 2.5/IPRATROPIUM 0.5 INH SOL 3 ML VIAL.NEB. NEB PRN (21:55)
[2017-09-19] MEDS: traMADol HCL 50 MG TABLET PO ONE (23:00)
[2017-09-20] MEDS ORDERED: ONDANSETRON 4 MG/2 ML VIAL IVPUSH ONE (01:10)
[2017-09-20] MEDS ORDERED: MELATONIN 5 MG TABLETS PO ONE (01:30)
--- NOTE | 2017-09-20 03:00 | HOSP ---
Subjective - Review of Symptoms Events since last encounter: Hospitalist Encounter Notified by RN that the patient reported having chest pain, nausea and was hungry earlier. Per RN patient was given an orange and pt reported the CP had worsened. Subjective: Arrived to bedside, patient is on isolation precautions for C-diff, she is awake , alert and oriented,resting comfortably at bedside, appears in no distress, Italian speaking, appraiser auditor at bedside. Patient denies CP, palpitations and SOB at present. Patient was medicated earlier with Zofran and Melatonin RN performed EKG- reviewed ST and T wave abnormality with prolonged QT, change from prior study Ordered a Troponin I PE performed see EMR Cardiovascular: Yes: Chest Pain Gastrointestinal: Yes: Nausea Physical Examination Vital Signs: Vital Signs Temperature 98.0 F 09/20/17 01:11 Pulse Rate 71 09/20/17 01:11 Respiratory Rate 20 09/20/17 01:11 Blood Pressure 141/68 09/20/17 01:11 O2 Sat by Pulse Oximetry (%) 100 09/19/17 21:00 Constitutional: Yes: Well Nourished, No Distress, Calm, Obese Eyes: Yes: WNL, Conjunctiva Clear, EOM Intact, PERRL HENT: Yes: WNL, Atraumatic, Normocephalic Neck: Yes: WNL, Supple, Trachea Midline Cardiovascular: Yes: WNL, Regular Rate and Rhythm, S1, S2 Respiratory: Yes: WNL, Regular, CTA Bilaterally, On Nasal O2 Gastrointestinal: Yes: Normal Bowel Sounds, Soft, Abdomen, Obese. No: Tenderness, Tenderness, Epigastrium, Tenderness, Rebound ...Rectal Exam: Yes: WNL Renal/: Yes: WNL Breast(s): Yes: WNL Musculoskeletal: Yes: WNL Extremities: Yes: WNL Edema: No Peripheral Pulses WNL: Yes Neurological: Yes: WNL, Alert, Oriented, Cran Nerves II-XII Intact ...Motor Strength: WNL Psychiatric: Yes: WNL, Alert, Oriented Labs: CBC, BMP 09/19/17 07:56 09/19/17 20:00 Laboratory Results - last 24 hr 09/19/17 09/19/17 09/19/17 07:56 07:56 07:56 WBC 9.6 RBC 3.16 L Hgb 9.8 L Hct 29.2 L MCV 92.3 MCH 31.1 MCHC 33.7 RDW 16.7 H Plt Count 301 D MPV 9.6 Absolute Neuts (auto) 6.9 Neutrophils % 72.0 Lymphocytes % 18.1 D Monocytes % 7.2 Eosinophils % 1.9 Basophils % 0.8 Nucleated RBC % 0 PT with INR 10.10 INR 0.89 PTT (Actin FS) 35.5 Sodium 130 L Potassium 5.7 H Chloride 92 L Carbon Dioxide 18 L Anion Gap 20 H BUN 135 H* D Creatinine 8.1 H* Creat Clearance w eGFR 4.86 POC Glucometer Random Glucose 117 H Calcium 9.6 Total Bilirubin 0.8 AST 23 ALT 27 Alkaline Phosphatase 164 H D Troponin I < 0.02 Total Protein 6.5 Albumin 3.3 L 09/19/17 09/19/17 09/19/17 12:30 17:26 20:00 WBC RBC Hgb Hct MCV MCH MCHC RDW Plt Count MPV Absolute Neuts (auto) Neutrophils % Lymphocytes % Monocytes % Eosinophils % Basophils % Nucleated RBC % PT with INR INR PTT (Actin FS) Sodium 139 Potassium 4.4 Chloride 99 Carbon Dioxide 28 Anion Gap 12 BUN 45 H D Creatinine 4.0 H Creat Clearance w eGFR 10.98 POC Glucometer 185 Random Glucose 88 Calcium 8.8 Total Bilirubin 0.3 AST 25 ALT 30 Alkaline Phosphatase 171 H Troponin I < 0.02 Total Protein 6.5 Albumin 3.2 L 09/19/17 09/19/17 20:00 21:14 WBC RBC Hgb Hct MCV MCH MCHC RDW Plt Count MPV Absolute Neuts (auto) Neutrophils % Lymphocytes % Monocytes % Eosinophils % Basophils % Nucleated RBC % PT with INR INR PTT (Actin FS) Sodium Potassium Chloride Carbon Dioxide Anion Gap BUN Creatinine Creat Clearance w eGFR POC Glucometer 98 Random Glucose Calcium Total Bilirubin AST ALT Alkaline Phosphatase Troponin I < 0.02 Total Protein Albumin Intake & Output 09/17/17 09/18/17 09/19/17 09/20/17 23:59 23:59 23:59 23:59 Intake Total 400 Balance 400 Weight 75.024 kg Current Medications Generic Name Dose Route Start Last Admin Trade Name Freq PRN Reason Stop Dose Admin Acetaminophen 650 mg 09/19/17 18:38 09/19/17 21:18 Tylenol - PO 650 mg Q6H PRN Administration PAIN LEVEL 1-5 Albuterol/Ipratropium 1 amp 09/19/17 21:55 Duoneb - NEB Q6H PRN SHORTNESS OF BREATH Amlodipine Besylate 5 mg 09/20/17 10:00 Norvasc - PO DAILY [facility] Aspirin 81 mg 09/20/17 10:00 Asa - PO DAILY [facility] Carvedilol 6.25 mg 09/19/17 22:00 09/19/17 21:18 Coreg - PO 6.25 mg BID GRAYSON Administration Heparin Sodium (Porcine) 5,000 unit 09/19/17 22:00 09/19/17 21:19 Heparin - SQ 5,000 unit TID GRAYSON Administration Insulin Aspart 1 vial 09/19/17 22:00 09/19/17 21:20 Novolog Vial Sliding Scale - SQ Not Given ACHS [facility] Protocol
[2017-09-20] MEDS: HEPARIN NA (PORCINE) 5,000 UNITS/ML 1ML VIAL SQ SCH ×3 (05:58→21:31)
[2017-09-20] MEDS: INSULIN SLIDING SCALE (NOVOLOG) 1 VIAL SQ SCH ×4 (06:10→21:36)
[2017-09-20] MEDS: traMADol HCL 50 MG TABLET PO ONE (07:39)
--- NOTE | 2017-09-20 09:44 | PN ---
Progress Note (short form) - Note Progress Note: Subjective: The patient was seen and examined at the bedside, she reports her chest pain has resolved from overnight. She is reporting still having diarrhea. C.diff Ag +, toxin -, start oral Vancomycin Current Medications Generic Name Dose Route Start Last Admin Trade Name Jessica PRN Reason Stop Dose Admin Acetaminophen 650 mg 09/19/17 18:38 09/19/17 21:18 Tylenol - PO 650 mg Q6H PRN Administration PAIN LEVEL 1-5 Al Hydroxide/Mg Hydroxide 30 ml 09/20/17 09:43 Mylanta Oral Suspension - PO Q6H PRN DYSPEPSIA Albuterol/Ipratropium 1 amp 09/19/17 21:55 Duoneb - NEB Q6H PRN SHORTNESS OF BREATH Amlodipine Besylate 5 mg 09/20/17 10:00 09/20/17 09:56 Norvasc - PO 5 mg DAILY [facility] Administration Aspirin 81 mg 09/20/17 10:00 09/20/17 09:56 Asa - PO 81 mg DAILY [facility] Administration Carvedilol 6.25 mg 09/19/17 22:00 09/20/17 09:56 Coreg - PO 6.25 mg BID [facility] Administration Heparin Sodium (Porcine) 5,000 unit 09/19/17 22:00 09/20/17 05:58 Heparin - SQ 5,000 unit TID [facility] Administration Insulin Aspart 1 vial 09/19/17 22:00 09/20/17 06:10 Novolog Vial Sliding Scale - SQ Not Given ACHS [facility] Protocol Vancomycin HCl 125 mg 09/20/17 12:00 Vancomycin Oral Solution PO Q6HPO [facility] Objective: Vital Signs Period Temp Pulse Resp BP Sys/Rodriguez Pulse Ox Last 24 Hr 98.0 F-99 F 60-80 18-20 126-167/53-101 98-100 Physical Exam: General: NAD, A&Ox3 Lungs: CTA bilaterally Heart: RRR, S1S2 Abd: Soft, non-tender. Hyperactive bowel sounds Ext: Warm, well-perfused CBCD WBC 6.4 K/mm3 (4.0-10.0) 09/20/17 10:10 RBC 3.05 M/mm3 (3.60-5.2) L 09/20/17 10:10 Hgb 9.4 GM/dL (10.7-15.3) L 09/20/17 10:10 Hct 28.1 % (32.4-45.2) L 09/20/17 10:10 MCV 92.4 fl (80-96) 09/20/17 10:10 MCHC 33.6 g/dl (32.0-36.0) 09/20/17 10:10 RDW 16.5 % (11.6-15.6) H 09/20/17 10:10 Plt Count 280 K/MM3 (134-434) 09/20/17 10:10 MPV 9.2 fl (7.5-11.1) 09/20/17 10:10 CMP Sodium 135 mmol/L (136-145) L 09/20/17 10:10 Potassium 4.1 mmol/L (3.5-5.1) 09/20/17 10:10 Chloride 95 mmol/L (98-107) L 09/20/17 10:10 Carbon Dioxide 30 mmol/L (21-32) 09/20/17 10:10 Anion Gap 10 (8-16) 09/20/17 10:10 BUN 61 mg/dL (7-18) H 09/20/17 10:10 Creatinine 5.0 mg/dL (0.55-1.02) H 09/20/17 10:10 Creat Clearance w eGFR 8.48 (>60) 09/20/17 10:10 Random Glucose 120 mg/dL (74-106) H 09/20/17 10:10 Calcium 8.0 mg/dL (8.5-10.1) L 09/20/17 10:10 Total Bilirubin 0.2 mg/dL (0.2-1.0) 09/20/17 10:10 AST 18 U/L (15-37) 09/20/17 10:10 ALT 30 U/L (12-78) 09/20/17 10:10 Alkaline Phosphatase 160 U/L (45-117) H D 09/20/17 10:10 Total Protein 5.8 g/dl (6.4-8.2) L 09/20/17 10:10 Albumin 2.8 g/dl (3.4-5.0) L 09/20/17 10:10 CARDIAC ENZYMES Troponin I < 0.02 ng/ml (0.00-0.05) 09/20/17 02:45 Microbiology 09/19/17 18:45 Stool Clostridium difficile Antigen (NAOMI) - Final 09/19/17 18:45 Stool Clostridium difficile Toxin Assay - Final Assessment: This is a 71 year old female with PMHx of ESRD (on HD T,Th,S), [place], quadruple bypass, DM, GERD, HTN, who presented to the ED with chest pain, diarrhea, fatigue, weakness. Plan: 1) Chest pain - Trop x4 negative - Patient complained of chest pain overnight after eating an orange. She reports this morning it has resolved. Will give Mylanta for GERD symptoms - F/u ECHO - Appreciate cardiology consult 2) Diarrhea - C.diff Ag +, toxin - - Given symptomatic, will treat with Vancomycin 125mg po q6h for total of 10 days 3) ESRD - Tolerated HD yesterday - Next HD tomorrow - Appreciate nephrology consult 4) DM - BGM ACHS - ISS ACHS 5) F/E/N: - Monitor electrolytes - Renal/diabetic diet 6) Prophylaxis: - Heparin 5,000u sq tid 7) Dispo: - Requires continued inpatient care CODE STATUS: FULL CODE Visit type - Emergency Visit Emergency Visit: Yes ED Registration Date: 09/19/17 Care time: The patient presented to the Emergency Department on the above date and was hospitalized for further evaluation of their emergent condition. - New Patient This patient is new to me today: Yes Date on this admission: 09/20/17 - Critical Care Critical Care patient: No
[2017-09-20] MEDS: ASPIRIN 81 MG CHEWABLE TABLETS PO SCH (09:56)
[2017-09-20] MEDS: CARVEDILOL 6.25 MG TABLET (FP) PO SCH ×2 (09:56→21:32)
[2017-09-20] MEDS: amLODIPine BESYLATE 5 MG TABLET (FP) PO SCH (09:56)
[2017-09-20 10:30] LABS: BASO % 1.2 % (0-2.0); EOS % 1.7 % (0-4.5); HEMATOCRIT 28.1 % (32.4-45.2); HEMOGLOBIN 9.4 GM/dL (10.7-15.3); LYMPH % 18.6 % (8-40); MCHC 33.6 g/dl (32.0-36.0); MEAN CELL VOLUME 92.4 fl (80-96); MEAN PLT VOLUME 9.2 fl (7.5-11.1); MONO % 8.2 % (3.8-10.2); NEUT % 70.3 % (42.8-82.8); PLATELET COUNT 280 K/MM3 (134-434); RBC 3.05 M/mm3 (3.60-5.2); RDW 16.5 % (11.6-15.6); WHITE BLOOD COUNT 6.4 K/mm3 (4.0-10.0)
[2017-09-20 11:01] LABS: ALBUMIN 2.8 g/dl (3.4-5.0); ANION GAP 10 (8-16); BLOOD UREA NITROGEN 61 mg/dL (7-18); CHLORIDE 95 mmol/L (98-107); CHOLESTEROL 147 mg/dL (50-200); CO2 30 mmol/L (21-32); GLUCOSE,RANDOM 120 mg/dL (74-106); POTASSIUM 4.1 mmol/L (3.5-5.1); SGOT/AST 18 U/L (15-37); SGPT/ALT 30 U/L (12-78); SODIUM 135 mmol/L (136-145); TOT PROT 5.8 g/dl (6.4-8.2); TRIGLYCERIDES 187 mg/dL (35-160)
[2017-09-20 11:02] LABS: ALK PHOS 160 U/L (45-117); BILIRUBIN,TOTAL 0.2 mg/dL (0.2-1.0); HDL CHOLESTEROL 42 mg/dL (40-60)
--- NOTE | 2017-09-20 12:03 | PN ---
Progress Note, Physician History of Present Illness: Pt seen and examined at bedside. She still has diarrhea. She denies shortness of breath. She tolerated HD yesterday. - Current Medication List Current Medications: Active Medications Acetaminophen (Tylenol -) 650 mg PO Q6H PRN PRN Reason: PAIN LEVEL 1-5 Last Admin: 09/19/17 21:18 Dose: 650 mg Al Hydroxide/Mg Hydroxide (Mylanta Oral Suspension -) 30 ml PO Q6H PRN PRN Reason: DYSPEPSIA Albuterol/Ipratropium (Duoneb -) 1 amp NEB Q6H PRN PRN Reason: SHORTNESS OF BREATH Amlodipine Besylate (Norvasc -) 5 mg PO DAILY [facility] Last Admin: 09/20/17 09:56 Dose: 5 mg Aspirin (Asa -) 81 mg PO DAILY [facility] Last Admin: 09/20/17 09:56 Dose: 81 mg Carvedilol (Coreg -) 6.25 mg PO BID [facility] Last Admin: 09/20/17 09:56 Dose: 6.25 mg Heparin Sodium (Porcine) (Heparin -) 5,000 unit SQ TID [facility] Last Admin: 09/20/17 05:58 Dose: 5,000 unit Insulin Aspart (Novolog Vial Sliding Scale -) 1 vial SQ ACHS [facility]; Protocol Last Admin: 09/20/17 06:10 Dose: Not Given Vancomycin HCl (Vancomycin Oral Solution) 125 mg PO Q6HPO [facility] - Objective Vital Signs: Vital Signs Temperature 98.0 F 09/20/17 05:29 Pulse Rate 76 09/20/17 05:29 Respiratory Rate 20 09/20/17 05:29 Blood Pressure 126/53 09/20/17 05:29 O2 Sat by Pulse Oximetry (%) 100 09/19/17 21:00 Constitutional: Yes: Calm Eyes: Yes: Conjunctiva Clear HENT: Yes: Atraumatic Neck: Yes: Supple Cardiovascular: Yes: S1, S2 Respiratory: Yes: CTA Bilaterally Gastrointestinal: Yes: Soft, Abdomen, Obese Genitourinary: Yes: WNL Musculoskeletal: Yes: WNL Edema: Yes Edema: LLE: Trace, RLE: Trace Neurological: Yes: Oriented Psychiatric: Yes: Oriented Labs: CBC, BMP 09/20/17 10:10 09/20/17 10:10 INR, PTT INR 0.89 (0.83-1.09) 09/19/17 07:56 Problem List - Problems (1) Diarrhea Code(s): R19.7 - DIARRHEA, UNSPECIFIED (2) ESRD (end stage renal disease) Code(s): N18.6 - END STAGE RENAL DISEASE Assessment/Plan Current Medications Generic Name Dose Route Start Last Admin Trade Name Freq PRN Reason Stop Dose Admin Acetaminophen 650 mg 09/19/17 18:38 09/19/17 21:18 Tylenol - PO 650 mg Q6H PRN Administration PAIN LEVEL 1-5 Al Hydroxide/Mg Hydroxide 30 ml 09/20/17 09:43 Mylanta Oral Suspension - PO Q6H PRN DYSPEPSIA Albuterol/Ipratropium 1 amp 09/19/17 21:55 Duoneb - NEB Q6H PRN SHORTNESS OF BREATH Amlodipine Besylate 5 mg 09/20/17 10:00 09/20/17 09:56 Norvasc - PO 5 mg DAILY [facility] Administration Aspirin 81 mg 09/20/17 10:00 09/20/17 09:56 Asa - PO 81 mg DAILY [facility] Administration Carvedilol 6.25 mg 09/19/17 22:00 09/20/17 09:56 Coreg - PO 6.25 mg BID [facility] Administration Heparin Sodium (Porcine) 5,000 unit 09/19/17 22:00 09/20/17 05:58 Heparin - SQ 5,000 unit TID [facility] Administration Insulin Aspart 1 vial 09/19/17 22:00 09/20/17 06:10 Novolog Vial Sliding Scale - SQ Not Given ACHS [facility] Protocol Vancomycin HCl 125 mg 09/20/17 12:00 Vancomycin Oral Solution PO Q6HPO [facility] Impression 1. ESRD 2. diarrhea 3. CAD 4. HTN 5. DM 6. hyperkalemia 7. anemia Plan - potassium is improved - diarrhea workup - HD in am - orders for HD tomorrow written - renal diet - called HD unit: 3 hrs, 350 abf, 2 k bath, avg, heparin 1000 units - will follow Dr Mosquera
[2017-09-20] MEDS: VANCOMYCIN 250 MG/5 ML ORAL SOLUTION PO SCH ×3 (12:18→23:14)
[2017-09-20] MEDS: PHENYLEPH/MINERAL OIL/PETROLAT 28 GM OINTMENT RC SCH (14:15)
--- NOTE | 2017-09-20 17:09 | ECHO ---
Name: CHINO BATES Exam:Adult Echocardiogram Study Date: 09/20/2017 11:00 AM Age: 71 yrs Reason For Study: CHEST PAIN CHF Height: 58 in Weight: 158 lb BSA: 1.6 m2 MMode/2D Measurements & Calculations IVSd: 1.1 cm Ao root diam: 2.7 cm LVIDd: 5.3 cm LA dimension: 5.4 cm LVIDs: 3.7 cm LVPWd: 1.1 cm EDV(Teich): 133.9 ml LAV (MOD-bp): 114.0 ml ESV(Teich): 59.5 ml TAPSE: 2.0 cm RV S Mike: 7.6 cm/sec Doppler Measurements & Calculations MV E max mike: 77.5 cm/sec MR max mike: 352.7 cm/sec MV A max mike: 72.1 cm/sec MR max P.2 mmHg MV E/A: 1.1 MV dec time: 0.24 sec TR max mike: 238.1 cm/sec Med Peak E' Mike: 4.4 cm/sec TR max P.8 mmHg Med E/e': 17.7 Lat Peak E' Mike: 7.7 cm/sec Lat E/e': 10.1 Left Ventricle The left ventricle is borderline dilated. There is mild concentric left ventricular hypertrophy. The left ventricular ejection fraction is normal. The transmitral spectral Doppler flow pattern is suggestive of impaired LV relaxation. Right Ventricle The right ventricular systolic function is normal. Atria The left atrium is severely dilated. The right atrium is mildly dilated. 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 Mitral Valve There is mild mitral annular calcification. There is moderate to severe mitral regurgitation. Tricuspid Valve There is moderate tricuspid regurgitation. Right ventricular systolic pressure is elevated at 30-40mm Hg. There is mild pulmonary hypertension. Aortic Valve There is mild aortic valve thickening. Great Vessels The aortic root is normal size. Pericardium/Pleura There is no pericardial effusion. Interpretation Summary The left ventricular ejection fraction is normal. There is mild concentric left ventricular hypertrophy. The left atrium is severely dilated. 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 There is mild mitral annular calcification. There is moderate tricuspid regurgitation. Right ventricular systolic pressure is elevated at 30-40mmHg. There is mild pulmonary hypertension. There is mild aortic valve thickening. The aortic root is normal size. There is no pericardial effusion. The right atrium is mildly dilated. Laron Leigh MD 09/20/2017 05:08 PM
--- NOTE | 2017-09-20 17:12 | EKG ---
Test Reason : Blood Pressure : / mmHG Vent. Rate : 067 BPM Atrial Rate : 067 BPM P-R Int : 216 ms QRS Dur : 092 ms QT Int : 438 ms P-R-T Axes : 012 014 066 degrees QTc Int : 462 ms SINUS RHYTHM WITH 1ST DEGREE A-V BLOCK NONSPECIFIC T WAVE ABNORMALITY PROLONGED QT ABNORMAL ECG WHEN COMPARED WITH ECG OF 19-SEP-2017 07:10, NONSPECIFIC T WAVE ABNORMALITY NOW EVIDENT IN INFERIOR LEADS NONSPECIFIC T WAVE ABNORMALITY, WORSE IN LATERAL LEADS Confirmed by EMELI VASQUEZ MD ([id number]) on 09/20/2017 5:12:18 PM Referred By: Confirmed By:EMELI VASQUEZ MD
[2017-09-20] MEDS: MAG HYDROX/AL HYDROX/SIMETH 30 ML UNIT-DOSE CUP PO PRN (21:32)
[2017-09-20] MEDS: ACETAMINOPHEN 325 MG TABLET (FP) PO PRN (21:32)
[2017-09-21] MEDS: MAG HYDROX/AL HYDROX/SIMETH 30 ML UNIT-DOSE CUP PO PRN (05:05)
[2017-09-21] MEDS: VANCOMYCIN 250 MG/5 ML ORAL SOLUTION PO SCH ×4 (05:05→23:24)
[2017-09-21] MEDS: HEPARIN NA (PORCINE) 5,000 UNITS/ML 1ML VIAL SQ SCH ×3 (05:05→21:31)
[2017-09-21] MEDS: ACETAMINOPHEN 325 MG TABLET (FP) PO PRN ×2 (05:06→23:23)
[2017-09-21] MEDS ORDERED: SODIUM CHLORIDE 250 ML IV PRN (06:03)
[2017-09-21] MEDS: INSULIN SLIDING SCALE (NOVOLOG) 1 VIAL SQ SCH ×4 (06:13→21:31)
[2017-09-21] MEDS ORDERED: HEPARIN NA (PORCINE) 5,000 UNITS/ML 1ML VIAL IVPUSH ONE (07:00)
[2017-09-21 07:23] LABS: CHLORIDE 94 mmol/L (98-107); POTASSIUM 4.8 mmol/L (3.5-5.1); SODIUM 135 mmol/L (136-145)
[2017-09-21 07:37] LABS: ANION GAP 14 (8-16); BLOOD UREA NITROGEN 78 mg/dL (7-18); CALCIUM 8.7 mg/dL (8.5-10.1); CO2 27 mmol/L (21-32); CREATININE 6.4 mg/dL (0.55-1.02); GLUCOSE,RANDOM 103 mg/dL (74-106)
[2017-09-21] MEDS ORDERED: EPOETIN ALFA 2,000 UNIT, EPOETIN ALFA 3,000 UNIT IVPUSH ONE (08:00)
[2017-09-21 08:23] LABS: HEMATOCRIT 27.6 % (32.4-45.2); HEMOGLOBIN 9.3 GM/dL (10.7-15.3); MCH 30.9 pg (25.7-33.7); MCHC 33.6 g/dl (32.0-36.0); MEAN CELL VOLUME 91.9 fl (80-96); MEAN PLT VOLUME 9.5 fl (7.5-11.1); PLATELET COUNT 274 K/MM3 (134-434); RDW 15.9 % (11.6-15.6); WHITE BLOOD COUNT 7.7 K/mm3 (4.0-10.0)
[2017-09-21] MEDS: amLODIPine BESYLATE 5 MG TABLET (FP) PO SCH (11:14)
[2017-09-21] MEDS: ASPIRIN 81 MG CHEWABLE TABLETS PO SCH (11:14)
[2017-09-21] MEDS: PHENYLEPH/MINERAL OIL/PETROLAT 28 GM OINTMENT RC SCH (11:14)
[2017-09-21] MEDS: CARVEDILOL 6.25 MG TABLET (FP) PO SCH ×2 (11:14→21:31)
[2017-09-21] MEDS ORDERED: EPOETIN ALFA 2,000 UNIT/1 ML VIAL IVPUSH ONE (12:02)
--- NOTE | 2017-09-21 12:23 | PN ---
Progress Note (short form) - Note Progress Note: Subjective: The patient was seen and examined at the bedside, she has no complaints at this time. All questions answered with RN present Current Medications Generic Name Dose Route Start Last Admin Trade Name Jessica PRN Reason Stop Dose Admin Acetaminophen 650 mg 09/19/17 18:38 09/21/17 05:06 Tylenol - PO 650 mg Q6H PRN Administration PAIN LEVEL 1-5 Al Hydroxide/Mg Hydroxide 30 ml 09/20/17 09:43 09/21/17 05:05 Mylanta Oral Suspension - PO 30 ml Q6H PRN Administration DYSPEPSIA Albuterol/Ipratropium 1 amp 09/19/17 21:55 Duoneb - NEB Q6H PRN SHORTNESS OF BREATH Amlodipine Besylate 5 mg 09/20/17 10:00 09/21/17 11:14 Norvasc - PO 5 mg DAILY [facility] Administration Aspirin 81 mg 09/20/17 10:00 09/21/17 11:14 Asa - PO 81 mg DAILY [facility] Administration Carvedilol 6.25 mg 09/19/17 22:00 09/21/17 11:14 Coreg - PO 6.25 mg BID [facility] Administration Heparin Sodium (Porcine) 5,000 unit 09/19/17 22:00 09/21/17 05:05 Heparin - SQ 5,000 unit TID [facility] Administration Sodium Chloride 250 mls @ 3,000 mls/hr 09/21/17 06:03 Normal Saline - IV 09/22/17 00:00 PRN PRN Hypotension during Dialysis Insulin Aspart 1 vial 09/19/17 22:00 09/21/17 11:30 Novolog Vial Sliding Scale - SQ Not Given ACHS [facility] Protocol Vancomycin HCl 125 mg 09/20/17 12:00 09/21/17 11:14 Vancomycin Oral Solution PO 125 mg Q6HPO [facility] Administration Objective: Vital Signs Period Temp Pulse Resp BP Sys/Rodriguez Pulse Ox Last 24 Hr 97.9 F-98.5 F 62-78 18-20 117-171/55-82 96 Physical Exam: General: NAD, A&Ox3 Lungs: CTA bilaterally Heart: RRR, S1S2 Abd: Soft, non-tender. Hyperactive bowel sounds. + hernia Ext: Warm, well-perfused CBCD WBC 7.7 K/mm3 (4.0-10.0) 09/21/17 07:13 RBC 3.00 M/mm3 (3.60-5.2) L 09/21/17 07:13 Hgb 9.3 GM/dL (10.7-15.3) L 09/21/17 07:13 Hct 27.6 % (32.4-45.2) L 09/21/17 07:13 MCV 91.9 fl (80-96) 09/21/17 07:13 MCHC 33.6 g/dl (32.0-36.0) 09/21/17 07:13 RDW 15.9 % (11.6-15.6) H 09/21/17 07:13 Plt Count 274 K/MM3 (134-434) 09/21/17 07:13 MPV 9.5 fl (7.5-11.1) 09/21/17 07:13 CMP Sodium 135 mmol/L (136-145) L 09/21/17 06:04 Potassium 4.8 mmol/L (3.5-5.1) 09/21/17 06:04 Chloride 94 mmol/L (98-107) L 09/21/17 06:04 Carbon Dioxide 27 mmol/L (21-32) 09/21/17 06:04 Anion Gap 14 (8-16) 09/21/17 06:04 BUN 78 mg/dL (7-18) H 09/21/17 06:04 Creatinine 6.4 mg/dL (0.55-1.02) H 09/21/17 06:04 Creat Clearance w eGFR 6.38 (>60) 09/21/17 06:04 Random Glucose 103 mg/dL (74-106) 09/21/17 06:04 Calcium 8.7 mg/dL (8.5-10.1) 09/21/17 06:04 Total Bilirubin 0.2 mg/dL (0.2-1.0) 09/20/17 10:10 AST 18 U/L (15-37) 09/20/17 10:10 ALT 30 U/L (12-78) 09/20/17 10:10 Alkaline Phosphatase 160 U/L (45-117) H D 09/20/17 10:10 Total Protein 5.8 g/dl (6.4-8.2) L 09/20/17 10:10 Albumin 2.8 g/dl (3.4-5.0) L 09/20/17 10:10 CARDIAC ENZYMES Troponin I < 0.02 ng/ml (0.00-0.05) 09/20/17 02:45 Microbiology 09/19/17 18:45 Stool Salmonella/Shigella Culture - Preliminary Gram Negative West Gram Negative West#2 09/19/17 18:45 Stool Yersinia Culture - Preliminary NO ENTERIC PATHOGENS, 24 HOURS, ON PRIMARY PLATES 09/19/17 18:45 Stool Vibrio Culture - Preliminary NO ENTERIC PATHOGENS, 24 HOURS, ON PRIMARY PLATES 09/19/17 18:45 Stool Escherichia coli 0157 Culture - Final NO GROWTH OF E COLI 0157 OBTAINED 09/19/17 20:00 Blood - Peripheral Venous Blood Culture - Preliminary NO GROWTH OBTAINED AFTER 24 HOURS, INCUBATION TO CONTINUE FOR 4 DAYS. 09/19/17 20:00 Blood - Peripheral Venous Blood Culture - Preliminary NO GROWTH OBTAINED AFTER 24 HOURS, INCUBATION TO CONTINUE FOR 4 DAYS. 09/19/17 18:45 Stool Clostridium difficile Antigen (NAOMI) - Final 09/19/17 18:45 Stool Clostridium difficile Toxin Assay - Final Assessment: This is a 71 year old female with PMHx of ESRD (on HD T,Th,S), [place], quadruple bypass, DM, GERD, HTN, who presented to the ED with chest pain, diarrhea, fatigue, weakness. Plan: 1) Chest pain - Trop x4 negative - Patient denies any chest pain now - ECHO: normal LVEF. Left atrium is severe dilated. Atrial septum is aneurysmal without evidence of shunting. Moderate to severe MR. Mod TR. RVSP is elevated. Mild pulmonary HTN. Right atrium is mildly dilated - Patient had cardiac workup at [facility], awaiting records for review - Appreciate cardiology consult: awaiting further cardiac recommendations 2) Diarrhea - C.diff Ag +, toxin - - Given symptomatic, will treat with Vancomycin 125mg po q6h for total of 10 days 3) Large gallstones - As evidence on CT. Without gross pericholecystic free fluid - Patient non-tender on exam, however is reporting epigastric pain. No feeling of satiation - F/u abd ultrasound - F/u GI consult 4) Large hernia - As evidence on CT. Fat-containing hernia, without herniating bowel loops seen - Can follow-up with surgeon as outpatient 5) ESRD - HD today - Appreciate nephrology consult 6) DM - BGM ACHS - ISS ACHS 7) F/E/N: - Monitor electrolytes - Renal/diabetic diet 8) Prophylaxis: - Heparin 5,000u sq tid 9) Dispo: - Requires continued inpatient care CODE STATUS: FULL CODE Visit type - Emergency Visit Emergency Visit: Yes ED Registration Date: 09/19/17 Care time: The patient presented to the Emergency Department on the above date and was hospitalized for further evaluation of their emergent condition. - New Patient This patient is new to me today: No - Critical Care Critical Care patient: No
[2017-09-21] MEDS ORDERED: WITCH HAZEL 50% (TUCKS) 40 PAD/JAR PAD TP PRN (12:37)
--- NOTE | 2017-09-21 13:00 | CON.GI ---
Consult Consult Specialty:: GI Reason for Consultation:: abdominal pain - History of Present Illness History of Present Illness: Chart reviewed. Events noted. Per initial intake on 09/19: Patient is a 71 year old female with a significant PMH of ESRD (dialysis TThS) via right arm fistula. Other history includes [place], quadruple bypass, diabetes, hypertension. 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 She comes to the ED today with 10/10 chest pain that began this morning. Chest pain did not radiate, but she had shortness of breath with chest pain and unable to take in a deep breath. She also reports persistent diarrhea, fatigue and weakness. In August of this year patient was treated for cdiff and was sent home with PO antibiotics which she reports that she completed. She was then seen at [facility] on September 10 for the persistent diarrhea and was sent home on antibiotics. Denies fever, chills, nausea, vomiting, chest pain, or shortness of breath. ER course was notable for: (1) abd pelvis ct: no significnat inteval change, mild cardiomegaly. multiple gallstones seen without gross pericholecystatic free fluid. large left paramedial supraumilical fat containing hernia without herniating boiwel loops. , bilatera atrophic kidnesy with bilateral ex ophytic cysts. No CT evidence of acute process in the abdomen. and pelvis. (2) chest pain (3) trops negative, elevated K, (4) EKG demonstrates sinus rhythm with first-degree AV block (5) 135/8.1 bun/creat GI was called today for evaluation of epigastric pain. The history obtained form the patient via Urdu-speaking computer support specialist - the pt's nurse. The pt reports chronic generalized abdominal pain of at least 3 months duration. The pain was evaluated at [facility] 3 months ago. An EGD and colonoscopy were without significant findings, per patient. Copies were requested. No nausea, vomiting, diarrhea, fever, or chills. No melena, hematochezia, dfyphagis, or odynophagia. No jaundice. No obvious alleviating, or aggravating factors. CT A/P 09/19, WO No significant interval change. Mild cardiomegaly and dense consolidation of the coronary arteries. Multiple large gallstones again seen without gross pericholecystic free fluid. Correlate clinically to determine further evaluation. Large left paramedian supraumbilical fat-containing hernia without herniating bowel loops. Bilaterally atrophic kidneys with bilateral exophytic cysts. Otherwise, there is no CT evidence of an acute process in the abdomen and pelvis. No leukocytosis, transaminitis, or bili elevation. ALP 160. No Lipase. - Past Medical History Cardio/Vascular: Yes: CAD, HTN Renal/: Yes: Renal Failure, Hemodialysis Endocrine: Yes: Diabetes Mellitus - Past Surgical History Past Surgical History: Yes: AV Fistula/Graft, CABG - Alcohol/Substance Use Hx Alcohol Use: No - Smoking History Smoking history: Never smoked Have you smoked in the past 12 months: No Aproximately how many cigarettes per day: 0 Home Medications - Allergies Allergies/Adverse Reactions: Allergies Allergy/AdvReac Type Severity Reaction Status Date / Time No Known Allergies Allergy Verified 09/20/16 11:41 - Home Medications Home Medications: Ambulatory Orders Aspirin [ASA -] 81 mg PO DAILY 07/24/15 Amlodipine Besylate 5 mg PO DAILY 09/20/16 Carvedilol 6.25 mg PO BID 09/20/16 Gabapentin 100 mg PO HS 09/20/16 Isoniazid 300 mg PO DAILY 09/20/16 Pyridoxine HCl [Vitamin B-6] 100 mg PO DAILY 09/20/16 Cephalexin [Keflex] 250 mg PO BID #14 capsule 09/23/16 Walker [Ultra-Light Rollator] 1 each MC DAILY #1 each 09/23/16 Family Disease History - Family Disease History Family History: Unremarkable (non-contrib) Review of Systems Findings/Remarks: as per HPI, ED, H&P Physical Exam-GI Vital Signs: Vital Signs Temperature 98.2 F 09/21/17 11:00 Pulse Rate 76 09/21/17 11:00 Respiratory Rate 18 09/21/17 11:00 Blood Pressure 147/65 09/21/17 11:00 O2 Sat by Pulse Oximetry (%) 96 09/20/17 21:00 Constitutional: Yes: Anxious, Mild Distress Eyes: Yes: Conjunctiva Clear HENT: Yes: Atraumatic Neck: Yes: Supple Cardiovascular: Yes: Regular Rate and Rhythm Respiratory: Yes: Regular Gastrointestinal Inspection: Yes: Hernia (periumbilical, reducible, w/o guarding , or rigidity). No: Ascites, Distention ...Auscultate: Yes: Normoactive Bowel Sounds ...Palpate: Yes: Soft, Tenderness. No: Firm/Rigid, Guarding, Mass Neurological: Yes: Alert, Oriented Labs: CBC, BMP 09/21/17 07:13 09/21/17 06:04 INR, PTT INR 0.89 (0.83-1.09) 09/19/17 07:56 Laboratory Last Values WBC 7.7 K/mm3 (4.0-10.0) 09/21/17 07:13 RBC 3.00 M/mm3 (3.60-5.2) L 09/21/17 07:13 Hgb 9.3 GM/dL (10.7-15.3) L 09/21/17 07:13 Hct 27.6 % (32.4-45.2) L 09/21/17 07:13 MCV 91.9 fl (80-96) 09/21/17 07:13 MCH 30.9 pg (25.7-33.7) 09/21/17 07:13 MCHC 33.6 g/dl (32.0-36.0) 09/21/17 07:13 RDW 15.9 % (11.6-15.6) H 09/21/17 07:13 Plt Count 274 K/MM3 (134-434) 09/21/17 07:13 MPV 9.5 fl (7.5-11.1) 09/21/17 07:13 Absolute Neuts (auto) 4.5 # 09/20/17 10:10 Neutrophils % 70.3 % (42.8-82.8) 09/20/17 10:10 Lymphocytes % 18.6 % (8-40) 09/20/17 10:10 Monocytes % 8.2 % (3.8-10.2) 09/20/17 10:10 Eosinophils % 1.7 % (0-4.5) 09/20/17 10:10 Basophils % 1.2 % (0-2.0) 09/20/17 10:10 Nucleated RBC % 0 % (0-0) 09/20/17 10:10 PT with INR 10.10 SEC (9.7-13.0) 09/19/17 07:56 INR 0.89 (0.83-1.09) 09/19/17 07:56 PTT (Actin FS) 35.5 SECONDS (25.2-36.5) 09/19/17 07:56 Sodium 135 mmol/L (136-145) L 09/21/17 06:04 Potassium 4.8 mmol/L (3.5-5.1) 09/21/17 06:04 Chloride 94 mmol/L (98-107) L 09/21/17 06:04 Carbon Dioxide 27 mmol/L (21-32) 09/21/17 06:04 Anion Gap 14 (8-16) 09/21/17 06:04 BUN 78 mg/dL (7-18) H 09/21/17 06:04 Creatinine 6.4 mg/dL (0.55-1.02) H 09/21/17 06:04 Creat Clearance w eGFR 6.38 (>60) 09/21/17 06:04 POC Glucometer 98 UNITS (80-120) 09/21/17 11:19 Random Glucose 103 mg/dL (74-106) 09/21/17 06:04 Hemoglobin A1c % 5.1 % (4.8-6.0) 09/20/17 10:10 Calcium 8.7 mg/dL (8.5-10.1) 09/21/17 06:04 Magnesium 2.0 mg/dL (1.8-2.4) 09/20/17 10:10 Total Bilirubin 0.2 mg/dL (0.2-1.0) 09/20/17 10:10 AST 18 U/L (15-37) 09/20/17 10:10 ALT 30 U/L (12-78) 09/20/17 10:10 Alkaline Phosphatase 160 U/L (45-117) H D 09/20/17 10:10 Troponin I < 0.02 ng/ml (0.00-0.05) 09/20/17 02:45 Total Protein 5.8 g/dl (6.4-8.2) L 09/20/17 10:10 Albumin 2.8 g/dl (3.4-5.0) L 09/20/17 10:10 Triglycerides 187 mg/dL (35-160) H 09/20/17 10:10 Cholesterol 147 mg/dL (50-200) 09/20/17 10:10 Total LDL Cholesterol 83 mg/dL (5-100) 09/20/17 10:10 HDL Cholesterol 42 mg/dL (40-60) 09/20/17 10:10 Hep C Ab Diagnostic 0.1 s/co ratio (0.0-0.9) 09/19/17 12:30 Hepatitis C RNA Cancelled 09/19/17 12:30 HCV RNA PCR log copping machine operator/ml Cancelled 09/19/17 12:30 HCV RNA (PCR) IUs/ml Cancelled 09/19/17 12:30 HCV RNA PCR w/Genot Rflx Cancelled 09/19/17 12:30 Liver Fibrosis Interp (.) 09/19/17 12:30 Imaging - Results Cat Scan: Report Reviewed Problem List - Problems (1) Chronic generalized abdominal pain Code(s): R10.84 - GENERALIZED ABDOMINAL PAIN; G89.29 - OTHER CHRONIC PAIN Assessment/Plan A 71F with the above chronic medical issues presents with a generalized abdominal pain , which appears to be chronic. Cholelithiasis is present on CT, however, the physical exam is negative for Murpu's and there is on clear lab evidence of cholestasis, or inflammation. The pt had EGD and colonoscopy within last 3 months (copies requested from [facility]). C. diff toxin negative. ? non-ulcer dyspepsia, ? non-erosive esophagitis, ? bile/acid reflux ? chronic renal disease Await EGD/colon reports. Daily liver chem, H2RB or PPI daily. Trial of carafate , if OK with nephrology. Renal diet as tolerated.
--- NOTE | 2017-09-21 15:44 | PN ---
Progress Note, Physician History of Present Illness: Pt seen and examined at bedside. She is awake and alert. She says that diarrhea has resolved. - Current Medication List Current Medications: Active Medications Acetaminophen (Tylenol -) 650 mg PO Q6H PRN PRN Reason: PAIN LEVEL 1-5 Last Admin: 09/21/17 05:06 Dose: 650 mg Al Hydroxide/Mg Hydroxide (Mylanta Oral Suspension -) 30 ml PO Q6H PRN PRN Reason: DYSPEPSIA Last Admin: 09/21/17 05:05 Dose: 30 ml Albuterol/Ipratropium (Duoneb -) 1 amp NEB Q6H PRN PRN Reason: SHORTNESS OF BREATH Amlodipine Besylate (Norvasc -) 5 mg PO DAILY [facility] Last Admin: 09/21/17 11:14 Dose: 5 mg Aspirin (Asa -) 81 mg PO DAILY [facility] Last Admin: 09/21/17 11:14 Dose: 81 mg Carvedilol (Coreg -) 6.25 mg PO BID [facility] Last Admin: 09/21/17 11:14 Dose: 6.25 mg Heparin Sodium (Porcine) (Heparin -) 5,000 unit SQ TID [facility] Last Admin: 09/21/17 13:31 Dose: Not Given Sodium Chloride (Normal Saline -) 250 mls @ 3,000 mls/hr IV PRN PRN PRN Reason: Hypotension during Dialysis Stop: 09/22/17 00:00 Insulin Aspart (Novolog Vial Sliding Scale -) [address] [facility]; Protocol Last Admin: 09/21/17 11:30 Dose: Not Given Vancomycin HCl (Vancomycin Oral Solution) 125 mg PO Q6HPO [facility] Last Admin: 09/21/17 11:14 Dose: 125 mg Witch Lupis/Glycerin (Tucks Pads -) 1 pad TP PRN PRN PRN Reason: HEMORRHOIDS - Objective Vital Signs: Vital Signs Temperature 99.6 F 09/21/17 13:45 Pulse Rate 75 09/21/17 13:45 Respiratory Rate 18 09/21/17 13:45 Blood Pressure 145/68 09/21/17 13:45 O2 Sat by Pulse Oximetry (%) 96 09/20/17 21:00 Constitutional: Yes: Calm Eyes: Yes: Conjunctiva Clear HENT: Yes: Atraumatic Cardiovascular: Yes: S1, S2 Respiratory: Yes: CTA Bilaterally Gastrointestinal: Yes: Normal Bowel Sounds, Soft Genitourinary: Yes: WNL Musculoskeletal: Yes: WNL Edema: No Neurological: Yes: Oriented Psychiatric: Yes: Oriented Labs: CBC, BMP 09/21/17 07:13 09/21/17 06:04 INR, PTT INR 0.89 (0.83-1.09) 09/19/17 07:56 Problem List - Problems (1) Diarrhea Code(s): R19.7 - DIARRHEA, UNSPECIFIED (2) ESRD (end stage renal disease) Code(s): N18.6 - END STAGE RENAL DISEASE Assessment/Plan Current Medications Generic Name Dose Route Start Last Admin Trade Name Freq PRN Reason Stop Dose Admin Acetaminophen 650 mg 09/19/17 18:38 09/21/17 05:06 Tylenol - PO 650 mg Q6H PRN Administration PAIN LEVEL 1-5 Al Hydroxide/Mg Hydroxide 30 ml 09/20/17 09:43 09/21/17 05:05 Mylanta Oral Suspension - PO 30 ml Q6H PRN Administration DYSPEPSIA Albuterol/Ipratropium 1 amp 09/19/17 21:55 Duoneb - NEB Q6H PRN SHORTNESS OF BREATH Amlodipine Besylate 5 mg 09/20/17 10:00 09/21/17 11:14 Norvasc - PO 5 mg DAILY [facility] Administration Aspirin 81 mg 09/20/17 10:00 09/21/17 11:14 Asa - PO 81 mg DAILY [facility] Administration Carvedilol 6.25 mg 09/19/17 22:00 09/21/17 11:14 Coreg - PO 6.25 mg BID [facility] Administration Heparin Sodium (Porcine) 5,000 unit 09/19/17 22:00 09/21/17 13:31 Heparin - SQ Not Given TID [facility] Sodium Chloride 250 mls @ 3,000 mls/hr 09/21/17 06:03 Normal Saline - IV 09/22/17 00:00 PRN PRN Hypotension during Dialysis Insulin Aspart 1 vial 09/19/17 22:00 09/21/17 11:30 Novolog Vial Sliding Scale - SQ Not Given ACHS [facility] Protocol Vancomycin HCl 125 mg 09/20/17 12:00 09/21/17 11:14 Vancomycin Oral Solution PO 125 mg Q6HPO [facility] Administration Witch Lupis/Glycerin 1 pad 09/21/17 12:37 Tucks Pads - TP PRN PRN HEMORRHOIDS Impression 1. ESRD 2. diarrhea 3. CAD 4. HTN 5. DM 6. hyperkalemia 7. anemia Plan - pt tolerated HD today - diarrhea has resolved - rest per primary team - renal diet - called HD unit: 3 hrs, 350 abf, 2 k bath, avg, heparin 1000 units - will follow Dr Mosquera
[2017-09-21] MEDS ORDERED: INSULIN (NOVOLOG) ASPART 100 UNITS/ML 10ML VIAL ONE (21:13)
[2017-09-22 00:06] LABS: HBSAG SCREEN Negative (Negative); HEP A AB, IGM Negative (Negative); HEP B CORE AB, TOT Negative (Negative)
[2017-09-22] MEDS: MAG HYDROX/AL HYDROX/SIMETH 30 ML UNIT-DOSE CUP PO PRN (04:15)
[2017-09-22] MEDS: HEPARIN NA (PORCINE) 5,000 UNITS/ML 1ML VIAL SQ SCH ×3 (06:30→22:14)
[2017-09-22] MEDS: VANCOMYCIN 250 MG/5 ML ORAL SOLUTION PO SCH ×3 (06:31→18:06)
[2017-09-22] MEDS: INSULIN SLIDING SCALE (NOVOLOG) 1 VIAL SQ SCH ×4 (06:42→22:14)
[2017-09-22] MEDS ORDERED: INSULIN (NOVOLOG) ASPART 100 UNITS/ML 10ML VIAL ONE (07:01)
[2017-09-22] MEDS: PHENYLEPH/MINERAL OIL/PETROLAT 28 GM OINTMENT RC SCH (10:33)
[2017-09-22] MEDS: amLODIPine BESYLATE 5 MG TABLET (FP) PO SCH (10:33)
[2017-09-22] MEDS: CARVEDILOL 6.25 MG TABLET (FP) PO SCH ×2 (10:33→22:14)
[2017-09-22] MEDS: ASPIRIN 81 MG CHEWABLE TABLETS PO SCH (10:33)
[2017-09-22] MEDS ORDERED: PT OWN MED DRAWER 7, Y5N ONE (12:35)
--- NOTE | 2017-09-22 14:17 | PN ---
Progress Note (short form) - Note Progress Note: continues to have dyspepsia and, aggravated by food, nausea. Last EGD in 2012. RUQ US done - formal read pending. Plan EGD. Discussed with the patient and her daughter, who translated for us today. Problem List - Problems (1) Chronic generalized abdominal pain Code(s): R10.84 - GENERALIZED ABDOMINAL PAIN; G89.29 - OTHER CHRONIC PAIN
[2017-09-22] MEDS: ACETAMINOPHEN 325 MG TABLET (FP) PO PRN ×2 (14:34→22:14)
--- NOTE | 2017-09-22 14:37 | PN ---
Progress Note (short form) - Note Progress Note: Subjective: The patient was seen and examined at the bedside, she has complaints of left face, upper and lower extremity weakness that began last night around 7pm. Was just notified by RN of findings. Neuro exam normal Stat head CT Called and spoke to Dr. Grace who is aware of consult Current Medications Generic Name Dose Route Start Last Admin Trade Name Freq PRN Reason Stop Dose Admin Acetaminophen 650 mg 09/19/17 18:38 09/21/17 23:23 Tylenol - PO 650 mg Q6H PRN Administration PAIN LEVEL 1-5 Al Hydroxide/Mg Hydroxide 30 ml 09/20/17 09:43 09/22/17 04:15 Mylanta Oral Suspension - PO 30 ml Q6H PRN Administration DYSPEPSIA Albuterol/Ipratropium 1 amp 09/19/17 21:55 Duoneb - NEB Q6H PRN SHORTNESS OF BREATH Amlodipine Besylate 5 mg 09/20/17 10:00 09/22/17 10:33 Norvasc - PO 5 mg DAILY [facility] Administration Aspirin 81 mg 09/20/17 10:00 09/22/17 10:33 Asa - PO 81 mg DAILY [facility] Administration Carvedilol 6.25 mg 09/19/17 22:00 09/22/17 10:33 Coreg - PO 6.25 mg BID [facility] Administration Heparin Sodium (Porcine) 5,000 unit 09/19/17 22:00 09/22/17 06:30 Heparin - SQ 5,000 unit TID [facility] Administration Insulin Aspart 1 vial 09/19/17 22:00 09/22/17 11:20 Novolog Vial Sliding Scale - SQ Not Given ACHS [facility] Protocol Vancomycin HCl 125 mg 09/20/17 12:00 09/22/17 12:38 Vancomycin Oral Solution PO 5 mg Q6HPO [facility] Administration Witch Lupis/Glycerin 1 pad 09/21/17 12:37 09/21/17 23:23 Tucks Pads - TP 1 applic PRN PRN Administration HEMORRHOIDS Objective: Vital Signs Period Temp Pulse Resp BP Sys/Rodriguez Pulse Ox Last 24 Hr 97.8 F-98.9 F 76-84 17-19 124-172/66-80 96-99 Physical Exam: General: NAD, A&Ox3 Lungs: CTA bilaterally Heart: RRR, S1S2 Abd: Soft, non-tender. Hyperactive bowel sounds. + hernia Ext: Warm, well-perfused CBCD WBC 7.7 K/mm3 (4.0-10.0) 09/21/17 07:13 RBC 3.00 M/mm3 (3.60-5.2) L 09/21/17 07:13 Hgb 9.3 GM/dL (10.7-15.3) L 09/21/17 07:13 Hct 27.6 % (32.4-45.2) L 09/21/17 07:13 MCV 91.9 fl (80-96) 09/21/17 07:13 MCHC 33.6 g/dl (32.0-36.0) 09/21/17 07:13 RDW 15.9 % (11.6-15.6) H 09/21/17 07:13 Plt Count 274 K/MM3 (134-434) 09/21/17 07:13 MPV 9.5 fl (7.5-11.1) 09/21/17 07:13 CMP Sodium 135 mmol/L (136-145) L 09/21/17 06:04 Potassium 4.8 mmol/L (3.5-5.1) 09/21/17 06:04 Chloride 94 mmol/L (98-107) L 09/21/17 06:04 Carbon Dioxide 27 mmol/L (21-32) 09/21/17 06:04 Anion Gap 14 (8-16) 09/21/17 06:04 BUN 78 mg/dL (7-18) H 09/21/17 06:04 Creatinine 6.4 mg/dL (0.55-1.02) H 09/21/17 06:04 Creat Clearance w eGFR 6.38 (>60) 09/21/17 06:04 Random Glucose 103 mg/dL (74-106) 09/21/17 06:04 Calcium 8.7 mg/dL (8.5-10.1) 09/21/17 06:04 Total Bilirubin 0.2 mg/dL (0.2-1.0) 09/20/17 10:10 AST 18 U/L (15-37) 09/20/17 10:10 ALT 30 U/L (12-78) 09/20/17 10:10 Alkaline Phosphatase 160 U/L (45-117) H D 09/20/17 10:10 Total Protein 5.8 g/dl (6.4-8.2) L 09/20/17 10:10 Albumin 2.8 g/dl (3.4-5.0) L 09/20/17 10:10 CARDIAC ENZYMES Troponin I < 0.02 ng/ml (0.00-0.05) 09/20/17 02:45 Microbiology 09/19/17 18:45 Stool Salmonella/Shigella Culture - Final 09/19/17 18:45 Stool Campylobacter Culture - Final NO GROWTH OF CAMPYLOBACTER SPECIES OBTAINED 09/19/17 18:45 Stool Yersinia Culture - Final NO GROWTH OF YERSINIA SPECIES OBTAINED 09/19/17 18:45 Stool Vibrio Culture - Final NO GROWTH OF VIBRIO SPECIES OBTAINED 09/19/17 18:45 Stool Escherichia coli 0157 Culture - Final NO GROWTH OF E COLI 0157 OBTAINED 09/19/17 20:00 Blood - Peripheral Venous Blood Culture - Preliminary NO GROWTH OBTAINED AFTER 48 HOURS, INCUBATION TO CONTINUE FOR 3 DAYS. 09/19/17 20:00 Blood - Peripheral Venous Blood Culture - Preliminary NO GROWTH OBTAINED AFTER 48 HOURS, INCUBATION TO CONTINUE FOR 3 DAYS. 09/19/17 18:45 Stool Clostridium difficile Antigen (NAOMI) - Final 09/19/17 18:45 Stool Clostridium difficile Toxin Assay - Final Assessment: This is a 71 year old female with PMHx of ESRD (on HD T,Th,S), [place], quadruple bypass, DM, GERD, HTN, who presented to the ED with chest pain, diarrhea, fatigue, weakness. Plan: 1) Left sided facial/body numbness and tingling - Neuro exam wnl - F/u stat Head CT - Discussed with Dr. Grace who is aware of consult 2) Chest pain - Resolved - Trop x4 negative - ECHO: normal LVEF. Left atrium is severe dilated. Atrial septum is aneurysmal without evidence of shunting. Moderate to severe MR. Mod TR. RVSP is elevated. Mild pulmonary HTN. Right atrium is mildly dilated - Patient had cardiac workup at [facility] - Appreciate cardiology consult: spoke to Dr. Leigh who states from cards perspective, patient can be discharged 3) Diarrhea - Resolved - C.diff Ag +, toxin - - Continue Vancomycin 125mg po q6h for total of 10 days 4) Large gallstones - As evidence on CT. Without gross pericholecystic free fluid - Patient non-tender on exam, however is reporting epigastric pain. No feeling of satiation - EGD scheduled for Monday with Dr. Bell - Appreciate GI consult 5) Large hernia - As evidence on CT. Fat-containing hernia, without herniating bowel loops seen - Can follow-up with surgeon as outpatient 6) ESRD - Tolerated HD yesterday - Appreciate nephrology consult 7) DM - BGM ACHS - ISS ACHS 8) F/E/N: - Monitor electrolytes - Renal/diabetic diet 9) Prophylaxis: - Heparin 5,000u sq tid 10) Dispo: - Requires continued inpatient care CODE STATUS: FULL CODE Visit type - Emergency Visit Emergency Visit: Yes ED Registration Date: 09/19/17 Care time: The patient presented to the Emergency Department on the above date and was hospitalized for further evaluation of their emergent condition. - New Patient This patient is new to me today: No - Critical Care Critical Care patient: No
--- NOTE | 2017-09-22 14:42 | PN ---
Progress Note, Physician History of Present Illness: Pt seen and examined at bedside. She complains of diarrhea today. She denies shortness of breath. - Current Medication List Current Medications: Active Medications Acetaminophen (Tylenol -) 650 mg PO Q6H PRN PRN Reason: PAIN LEVEL 1-5 Last Admin: 09/22/17 14:34 Dose: 650 mg Al Hydroxide/Mg Hydroxide (Mylanta Oral Suspension -) 30 ml PO Q6H PRN PRN Reason: DYSPEPSIA Last Admin: 09/22/17 04:15 Dose: 30 ml Albuterol/Ipratropium (Duoneb -) 1 amp NEB Q6H PRN PRN Reason: SHORTNESS OF BREATH Amlodipine Besylate (Norvasc -) 5 mg PO DAILY [facility] Last Admin: 09/22/17 10:33 Dose: 5 mg Aspirin (Asa -) 81 mg PO DAILY [facility] Last Admin: 09/22/17 10:33 Dose: 81 mg Carvedilol (Coreg -) 6.25 mg PO BID [facility] Last Admin: 09/22/17 10:33 Dose: 6.25 mg Heparin Sodium (Porcine) (Heparin -) 5,000 unit SQ TID [facility] Last Admin: 09/22/17 06:30 Dose: 5,000 unit Insulin Aspart (Novolog Vial Sliding Scale -) [address] [facility]; Protocol Last Admin: 09/22/17 11:20 Dose: Not Given Vancomycin HCl (Vancomycin Oral Solution) 125 mg PO Q6HPO [facility] Last Admin: 09/22/17 12:38 Dose: 5 mg Witch Lupis/Glycerin (Tucks Pads -) 1 pad TP PRN PRN PRN Reason: HEMORRHOIDS Last Admin: 09/21/17 23:23 Dose: 1 applic - Objective Vital Signs: Vital Signs Temperature 97.8 F 09/22/17 09:10 Pulse Rate 84 09/22/17 02:00 Respiratory Rate 17 09/22/17 09:10 Blood Pressure 171/72 09/22/17 09:10 O2 Sat by Pulse Oximetry (%) 99 09/22/17 09:00 Constitutional: Yes: Calm Eyes: Yes: Conjunctiva Clear HENT: Yes: Atraumatic Neck: Yes: Supple Cardiovascular: Yes: S1, S2 Respiratory: Yes: CTA Bilaterally Gastrointestinal: Yes: Soft Genitourinary: Yes: WNL Musculoskeletal: Yes: WNL Edema: No Neurological: Yes: Oriented Psychiatric: Yes: Oriented Labs: CBC, BMP 09/21/17 07:13 09/21/17 06:04 INR, PTT INR 0.89 (0.83-1.09) 09/19/17 07:56 Problem List - Problems (1) Diarrhea Code(s): R19.7 - DIARRHEA, UNSPECIFIED (2) ESRD (end stage renal disease) Code(s): N18.6 - END STAGE RENAL DISEASE Assessment/Plan Current Medications Generic Name Dose Route Start Last Admin Trade Name Freq PRN Reason Stop Dose Admin Acetaminophen 650 mg 09/19/17 18:38 09/22/17 14:34 Tylenol - PO 650 mg Q6H PRN Administration PAIN LEVEL 1-5 Al Hydroxide/Mg Hydroxide 30 ml 09/20/17 09:43 09/22/17 04:15 Mylanta Oral Suspension - PO 30 ml Q6H PRN Administration DYSPEPSIA Albuterol/Ipratropium 1 amp 09/19/17 21:55 Duoneb - NEB Q6H PRN SHORTNESS OF BREATH Amlodipine Besylate 5 mg 09/20/17 10:00 09/22/17 10:33 Norvasc - PO 5 mg DAILY [facility] Administration Aspirin 81 mg 09/20/17 10:00 09/22/17 10:33 Asa - PO 81 mg DAILY [facility] Administration Carvedilol 6.25 mg 09/19/17 22:00 09/22/17 10:33 Coreg - PO 6.25 mg BID [facility] Administration Heparin Sodium (Porcine) 5,000 unit 09/19/17 22:00 09/22/17 06:30 Heparin - SQ 5,000 unit TID [facility] Administration Insulin Aspart 1 vial 09/19/17 22:00 09/22/17 11:20 Novolog Vial Sliding Scale - SQ Not Given ACHS [facility] Protocol Vancomycin HCl 125 mg 09/20/17 12:00 09/22/17 12:38 Vancomycin Oral Solution PO 5 mg Q6HPO [facility] Administration Witch Lupis/Glycerin 1 pad 09/21/17 12:37 09/21/17 23:23 Tucks Pads - TP 1 applic PRN PRN Administration HEMORRHOIDS Impression 1. ESRD 2. diarrhea 3. CAD 4. HTN 5. DM 6. hyperkalemia 7. anemia Plan - HD in am - diarrhea has come back - d/c mylanta - renal diet - called HD unit: 3 hrs, 350 abf, 2 k bath, avg, heparin 1000 units - will follow Dr Mosquera
--- NOTE | 2017-09-22 15:22 | PN ---
Progress Note, Physician - Current Medication List Current Medications: Active Medications Acetaminophen (Tylenol -) 650 mg PO Q6H PRN PRN Reason: PAIN LEVEL 1-5 Last Admin: 09/22/17 14:34 Dose: 650 mg Albuterol/Ipratropium (Duoneb -) 1 amp NEB Q6H PRN PRN Reason: SHORTNESS OF BREATH Amlodipine Besylate (Norvasc -) 5 mg PO DAILY [facility] Last Admin: 09/22/17 10:33 Dose: 5 mg Aspirin (Asa -) 81 mg PO DAILY [facility] Last Admin: 09/22/17 10:33 Dose: 81 mg Carvedilol (Coreg -) 6.25 mg PO BID [facility] Last Admin: 09/22/17 10:33 Dose: 6.25 mg Epoetin Edil (Epogen -) 5,000 unit IVPUSH ONCE ONE Stop: 09/23/17 14:47 Heparin Sodium (Porcine) (Heparin -) 5,000 unit SQ TID [facility] Last Admin: 09/22/17 06:30 Dose: 5,000 unit Heparin Sodium (Porcine) (Heparin -) 1,000 unit IVPUSH ONCE ONE Stop: 09/23/17 14:47 Sodium Chloride (Normal Saline -) 250 mls @ 3,000 mls/hr IV PRN PRN PRN Reason: Hypotension during Dialysis Stop: 09/23/17 14:46 Insulin Aspart (Novolog Vial Sliding Scale -) 1 vial SQ [facility]; Protocol Last Admin: 09/22/17 11:20 Dose: Not Given Vancomycin HCl (Vancomycin Oral Solution) 125 mg PO Q6HPO [facility] Last Admin: 09/22/17 12:38 Dose: 5 mg Witch Lupis/Glycerin (Tucks Pads -) 1 pad TP PRN PRN PRN Reason: HEMORRHOIDS Last Admin: 09/21/17 23:23 Dose: 1 applic - Objective Vital Signs: Vital Signs Temperature 97.8 F 09/22/17 09:10 Pulse Rate 84 09/22/17 02:00 Respiratory Rate 17 09/22/17 09:10 Blood Pressure 171/72 09/22/17 09:10 O2 Sat by Pulse Oximetry (%) 99 09/22/17 09:00 Labs: CBC, BMP 09/21/17 07:13 09/21/17 06:04 INR, PTT INR 0.89 (0.83-1.09) 09/19/17 07:56
--- NOTE | 2017-09-22 15:24 | CON.ID ---
Consult Consult Specialty:: infectious diseases Referred by:: Lakisha Reason for Consultation:: cdiff - History of Present Illness Chief Complaint: dirrhoea History of Present Illness: Patient is a 71 year old female with a significant PMH of ESRD [place], quadruple bypass, diabetes, hypertension. 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 Patient admitted to the hospital because of chest pain Chest pain did not radiate, but she had shortness of breath with chest pain and unable to take in a deep breath. She also reports persistent diarrhea, fatigue and weakness. currently patient denies any chest pain In August of this year patient was treated for cdiff and was sent home with PO antibiotics which she reports that she completed. She was then seen at [facility] on September 10 for the persistent diarrhea and was sent home on antibiotics. - History Source History Provided By: Patient, Medical Record Limitations to Obtaining History: Language Barrier - Past Medical History Cardio/Vascular: Yes: CAD, HTN Renal/: Yes: Renal Failure, Hemodialysis Endocrine: Yes: Diabetes Mellitus - Past Surgical History Past Surgical History: Yes: AV Fistula/Graft, CABG - Alcohol/Substance Use Hx Alcohol Use: No - Smoking History Smoking history: Never smoked Have you smoked in the past 12 months: No Aproximately how many cigarettes per day: 0 Home Medications - Allergies Allergies/Adverse Reactions: Allergies Allergy/AdvReac Type Severity Reaction Status Date / Time No Known Allergies Allergy Verified 09/20/16 11:41 - Home Medications Home Medications: Ambulatory Orders Aspirin [ASA -] 81 mg PO DAILY 07/24/15 Amlodipine Besylate 5 mg PO DAILY 09/20/16 Carvedilol 6.25 mg PO BID 09/20/16 Gabapentin 100 mg PO HS 09/20/16 Isoniazid 300 mg PO DAILY 09/20/16 Pyridoxine HCl [Vitamin B-6] 100 mg PO DAILY 09/20/16 Cephalexin [Keflex] 250 mg PO BID #14 capsule 09/23/16 Walker [Ultra-Light Rollator] 1 each [facility] DAILY #1 each 09/23/16 Review of Systems - Review of Systems Constitutional: reports: No Symptoms Eyes: reports: No Symptoms HENT: reports: No Symptoms Neck: reports: No Symptoms Cardiovascular: reports: Chest Pain Respiratory: reports: No Symptoms Gastrointestinal: reports: Bloating, Diarrhea Genitourinary: reports: No Symptoms Breasts: reports: No Symptoms Reported Musculoskeletal: reports: No Symptoms Integumentary: reports: No Symptoms Neurological: reports: No Symptoms Endocrine: reports: No Symptoms Hematology/Lymphatic: reports: No Symptoms Psychiatric: reports: No Symptoms Physical Exam Vital Signs: Vital Signs Temperature 97.8 F 09/22/17 09:10 Pulse Rate 84 09/22/17 02:00 Respiratory Rate 17 09/22/17 09:10 Blood Pressure 171/72 09/22/17 09:10 O2 Sat by Pulse Oximetry (%) 99 09/22/17 09:00 Constitutional: Yes: Well Nourished, No Distress, Calm Eyes: Yes: Conjunctiva Clear Neck: Yes: Supple, Trachea Midline Cardiovascular: Yes: Regular Rate and Rhythm Respiratory: Yes: Regular, CTA Bilaterally Gastrointestinal: Yes: Normal Bowel Sounds, Soft Musculoskeletal: Yes: WNL Extremities: Yes: WNL Neurological: Yes: Alert, Oriented Psychiatric: Yes: Alert, Oriented Labs: CBC, BMP 09/21/17 07:13 09/21/17 06:04 Imaging - Results Chest X-ray: Report Reviewed, Image Reviewed Cat Scan: Report Reviewed, Image Reviewed Assessment/Plan patient coming in with chest pain and h/o of cdiff nd agin having dirrhoea with report showing as antigen positive was started on vanco by the team Assessment/Plan Impression 1. ESRD 2. diarrhea 3. CAD 4. HTN 5. DM 6. hyperkalemia 7. anemia 8 cdiff plan continue vanco po and complete the course dialysis rest as per the team patient stable
[2017-09-23] MEDS: VANCOMYCIN 250 MG/5 ML ORAL SOLUTION PO SCH ×4 (00:53→17:35)
[2017-09-23] MEDS: INSULIN SLIDING SCALE (NOVOLOG) 1 VIAL SQ SCH ×4 (06:00→21:13)
[2017-09-23] MEDS: HEPARIN NA (PORCINE) 5,000 UNITS/ML 1ML VIAL SQ SCH ×3 (06:00→21:13)
[2017-09-23] MEDS ORDERED: SODIUM CHLORIDE 250 ML IV PRN (06:24)
[2017-09-23] MEDS ORDERED: HEPARIN NA (PORCINE) 5,000 UNITS/ML 1ML VIAL IVPUSH ONE (08:00)
[2017-09-23 08:52] LABS: ALBUMIN 2.9 g/dl (3.4-5.0); ALK PHOS 148 U/L (45-117); ANION GAP 10 (8-16); BILIRUBIN,TOTAL 0.3 mg/dL (0.2-1.0); BLOOD UREA NITROGEN 69 mg/dL (7-18); CALCIUM 8.7 mg/dL (8.5-10.1); CHLORIDE 96 mmol/L (98-107); CO2 29 mmol/L (21-32); CREATININE 5.9 mg/dL (0.55-1.02); GLUCOSE,RANDOM 101 mg/dL (74-106); POTASSIUM 5.4 mmol/L (3.5-5.1); SGOT/AST 22 U/L (15-37); SGPT/ALT 30 U/L (12-78); SODIUM 135 mmol/L (136-145); TOT PROT 5.9 g/dl (6.4-8.2)
--- NOTE | 2017-09-23 08:56 | PN ---
Progress Note, Physician Chief Complaint: Pt sitting up at bedside; chronic abdominal discomfort. History of Present Illness: The patient is a 71 year old female (winston. Richy), with a significant PMH of ESRD (dialysis T, Th, Sat), CT 14 years ago--> CABG--quadruple bypass, DM and HTN, who presents to the emergency department with chest pain this morning. The patient states non radiating chest pain began this morning before dialysis and is located to the left anterior chest wall with a severity of 10/10. The patient states chest pain is accompanied with diarrhea, nausea, fatigue, decreased appetitie,and mild SOB. The patient mentions last episode of diarrhea was around 5 am this morning. The patient also reports abdomen pain secondary to her hernia. - Current Medication List Current Medications: Active Medications Acetaminophen (Tylenol -) 650 mg PO Q6H PRN PRN Reason: PAIN LEVEL 1-5 Last Admin: 09/22/17 22:14 Dose: 650 mg Albuterol/Ipratropium (Duoneb -) 1 amp NEB Q6H PRN PRN Reason: SHORTNESS OF BREATH Amlodipine Besylate (Norvasc -) 5 mg PO DAILY [facility] Last Admin: 09/22/17 10:33 Dose: 5 mg Aspirin (Asa -) 81 mg PO DAILY [facility] Last Admin: 09/22/17 10:33 Dose: 81 mg Carvedilol (Coreg -) 6.25 mg PO BID [facility] Last Admin: 09/22/17 22:14 Dose: 6.25 mg Epoetin Edil 3,000 unit/ (Epoetin Edil 2,000 unit) 5,000 unit IVPUSH ONCE ONE Stop: 09/23/17 09:01 Last Admin: 09/23/17 08:44 Dose: 5,000 unit Heparin Sodium (Porcine) (Heparin -) 5,000 unit SQ TID [facility] Last Admin: 09/23/17 06:00 Dose: Not Given Sodium Chloride (Normal Saline -) 250 mls @ 3,000 mls/hr IV PRN PRN PRN Reason: Hypotension during Dialysis Stop: 09/23/17 18:00 Insulin Aspart (Novolog Vial Sliding Scale -) 1 vial SQ [facility]; Protocol Last Admin: 09/23/17 06:00 Dose: Not Given Vancomycin HCl (Vancomycin Oral Solution) 125 mg PO Q6HPO [facility] Last Admin: 09/23/17 06:00 Dose: 125 mg Witch Lupis/Glycerin (Tucks Pads -) 1 pad TP PRN PRN PRN Reason: HEMORRHOIDS Last Admin: 09/21/17 23:23 Dose: 1 applic - Objective Vital Signs: Vital Signs Temperature 98.2 F 09/23/17 07:10 Pulse Rate 70 09/23/17 08:45 Respiratory Rate 18 09/23/17 08:45 Blood Pressure 177/72 09/23/17 08:45 O2 Sat by Pulse Oximetry (%) 99 09/22/17 21:00 Constitutional: Yes: Calm Eyes: Yes: WNL HENT: Yes: WNL Neck: Yes: WNL Cardiovascular: Yes: S1 (split), S2 Respiratory: Yes: WNL Gastrointestinal: Yes: Soft ...Rectal Exam: Yes: Deferred Genitourinary: No: Anuria Breast(s): Yes: WNL Musculoskeletal: Yes: Muscle Weakness Extremities: Yes: WNL Edema: No Peripheral Pulses WNL: Yes Integumentary: Yes: WNL Neurological: Yes: Alert, Oriented, Weakness Psychiatric: Yes: Alert, Oriented, Other (anxious) Labs: CBC, BMP 09/21/17 07:13 09/23/17 07:15 INR, PTT INR 0.89 (0.83-1.09) 09/19/17 07:56 Problem List - Problems (1) Abdominal discomfort Assessment/Plan: abdominal protrusion, with hx hernia; pt has had tests in preparation for "hernia surgery". F/u with GI, surgeon. Code(s): R10.9 - UNSPECIFIED ABDOMINAL PAIN (2) Diarrhea Code(s): R19.7 - DIARRHEA, UNSPECIFIED (3) Hx of CABG Assessment/Plan: Pt had CT-->CABG over 10 years ago. Stress MIBI earlier this year at [facility]: small area mildly intense ischemia; normal LVEF. On carvedilol. Problematic adding ACEI or ARB for CAD, CHF, DM, HTN because of episodes of hyperkalemia; f/u with employment security officer. Code(s): Z95.1 - PRESENCE OF AORTOCORONARY BYPASS GRAFT (4) ESRD (end stage renal disease) Assessment/Plan: hemodialysis per employment security officer. Code(s): N18.6 - END STAGE RENAL DISEASE (5) Dialysis patient Code(s): Z99.2 - DEPENDENCE ON RENAL DIALYSIS (6) Atypical chest pain Assessment/Plan: TNI < 0.02 several times over 48 hours. EKG: nonspecific T wave changes. Stress MIBI earlier this year at [facility] (small area of mildly intense mycardial ischemia; normal LVEF). Continue carvedilol. ASA 81 mg daily. Statin; keep LDL cholesterol well below 70 mg/dL. Code(s): R07.89 - OTHER CHEST PAIN (7) Diastolic CHF Assessment/Plan: ECHO: normal LVEF; borderline dilated LV; mod-severe MR; severely dilated LA; mild pulmonary HTN. Code(s): I50.30 - UNSPECIFIED DIASTOLIC (CONGESTIVE) HEART FAILURE
[2017-09-23] MEDS ORDERED: EPOETIN ALFA 3,000 UNIT, EPOETIN ALFA 2,000 UNIT IVPUSH ONE (09:00)
--- NOTE | 2017-09-23 09:23 | PN ---
Physical Exam: SUBJECTIVE: Patient seen and examined at bedside. [place] dizzy during dialysis today, now resolved. OBJECTIVE: Vital Signs Period Temp Pulse Resp BP Sys/Rodriguez Pulse Ox Last 24 Hr 97.7 F-98.2 F 68-81 16-118 133-177/62-83 99 GENERAL: The patient is awake, alert, and fully oriented, in no acute distress. LUNGS: Bibasilar crackles HEART: Regular rate and rhythm, S1, S2 ABDOMEN: Soft, nondistended, normoactive bowel sounds; abdominal hernia reducible but tender EXTREMITIES: 2+ pulses, warm, well-perfused, no edema. NEUROLOGICAL: Cranial nerves II through XII grossly intact. Normal speech, moves all extremities freely Laboratory Results - last 24 hr 09/22/17 09/23/17 11:15 07:15 Sodium 135 L Potassium 5.4 H Chloride 96 L Carbon Dioxide 29 Anion Gap 10 BUN 69 H Creatinine 5.9 H Creat Clearance w eGFR 7.01 POC Glucometer 142 Random Glucose 101 Calcium 8.7 Total Bilirubin 0.3 AST 22 ALT 30 Alkaline Phosphatase 148 H D Total Protein 5.9 L Albumin 2.9 L Active Medications Generic Name Dose Route Start Last Admin Trade Name Freq PRN Reason Stop Dose Admin Acetaminophen 650 mg 09/19/17 18:38 09/22/17 22:14 Tylenol - PO 650 mg Q6H PRN Administration PAIN LEVEL 1-5 Albuterol/Ipratropium 1 amp 09/19/17 21:55 Duoneb - NEB Q6H PRN SHORTNESS OF BREATH Amlodipine Besylate 5 mg 09/20/17 10:00 09/22/17 10:33 Norvasc - PO 5 mg DAILY [facility] Administration Aspirin 81 mg 09/20/17 10:00 09/22/17 10:33 Asa - PO 81 mg DAILY [facility] Administration Carvedilol 6.25 mg 09/19/17 22:00 09/22/17 22:14 Coreg - PO 6.25 mg BID [facility] Administration Heparin Sodium (Porcine) 5,000 unit 09/19/17 22:00 09/23/17 06:00 Heparin - SQ Not Given TID [facility] Sodium Chloride 250 mls @ 3,000 mls/hr 09/23/17 06:24 Normal Saline - IV 09/23/17 18:00 PRN PRN Hypotension during Dialysis Insulin Aspart 1 vial 09/19/17 22:00 09/23/17 06:00 Novolog Vial Sliding Scale - SQ Not Given ACHS [facility] Protocol Vancomycin HCl 125 mg 09/20/17 12:00 09/23/17 06:00 Vancomycin Oral Solution PO 125 mg Q6HPO [facility] Administration Witch Lupis/Glycerin 1 pad 09/21/17 12:37 09/21/17 23:23 Tucks Pads - TP 1 applic PRN PRN Administration HEMORRHOIDS ASSESSMENT/PLAN 71 year old female with PMH significant for HTN, CAD s/p CABG x 4, ESRD on HD ( ,,Sat), NIDDM, and GERD. Recent h/o c.diff. Admitted for chest pain, and persistent diarrhea. Left sided facial/body numbness and tingling --new onset 09/22 --nonfocal exam --09/22 CT head: unremarkable --seen and evaluated by neuro; stable; symptoms likely precipitated by anxiety; no further workup indicated Chest pain --troponin neg x 4 --CXR unremarkable --ECG: not suggestive of acute ischemic event --stress MIBI earlier this year at [facility] with small area of mildly intense myocardiac ischemia, normal LVEF --continue carvedilol --hold ASA for procedure Diastolic heart failure Severe valvular pathology Mild pulmonary hypertension --09/20 Echo: mild cLVH, LV normal, impaired relaxation; RV normal; BLAE; moderate to severe MR; moderate TR; mild pHTN --per Dr. Leigh patient can be discharged from [facility] perspective Diarrhea --C.diff Ag +, toxin - --continue Vancomycin 125mg po q6h for total of 10 days (day #4) Large gallstones --09/19 CTAP: multiple large gallstones without gross pericholecystic fluid --09/22 US: contracted gallbladder with multiple stones and without evidence of pericholecystic fluid --symptomatic, nausea and pain with food --EGD on Monday with Dr. Bell Supraumbilical hernia --fat containing, no evidence of herniating bowel loops --outpatient followup with [facility] surgeon ESRD on HD (,,Sat) --HD today NIDDM --Novolog sliding scale coverage FEN Fluids: PO intake adequate Electrolytes: replete as indicated Nutrition: renal diabetic DVT prophylaxis: subq heparin; hold after tomorrow morning's dose for EGD on Monday; SCDs, oob, ambulation Physical therapy Dispo: continues to require inpatient care. Full code. Visit type - Emergency Visit Emergency Visit: Yes ED Registration Date: 09/19/17 Care time: The patient presented to the Emergency Department on the above date and was hospitalized for further evaluation of their emergent condition. - New Patient This patient is new to me today: Yes Date on this admission: 09/23/17 - Critical Care Critical Care patient: No - Discharge Referral Referred to [facility] Med [facility].: No
[2017-09-23 09:24] LABS: HEMATOCRIT 26.1 % (32.4-45.2); HEMOGLOBIN 8.6 GM/dL (10.7-15.3); MCH 30.4 pg (25.7-33.7); MCHC 32.9 g/dl (32.0-36.0); MEAN CELL VOLUME 92.2 fl (80-96); MEAN PLT VOLUME 9.8 fl (7.5-11.1); PLATELET COUNT 232 K/MM3 (134-434); RBC 2.83 M/mm3 (3.60-5.2); RDW 16.1 % (11.6-15.6); WHITE BLOOD COUNT 7.8 K/mm3 (4.0-10.0)
[2017-09-23] MEDS ORDERED: PT OWN MED DRAWER 7, Y5N ONE ×2 (10:48→16:12)
[2017-09-23] MEDS: PHENYLEPH/MINERAL OIL/PETROLAT 28 GM OINTMENT RC SCH (11:02)
[2017-09-23] MEDS: CARVEDILOL 6.25 MG TABLET (FP) PO SCH ×2 (11:02→21:13)
[2017-09-23] MEDS: amLODIPine BESYLATE 5 MG TABLET (FP) PO SCH (11:02)
[2017-09-23] MEDS: ASPIRIN 81 MG CHEWABLE TABLETS PO SCH (11:02)
--- NOTE | 2017-09-23 12:44 | CONSULT ---
Consult - text type - Consultation Consultation Note: Neurology CHIEF COMPLAINT: chest pain, fatigue HISTORY OF PRESENT ILLNESS: Patient is a 71 year old female with a significant PMH of ESRD (dialysis TThS) via right arm fistula. Other history includes CA, quadruple bypass, diabetes, hypertension. 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 She comes to the ED today with 10/10 chest pain that began this morning. Chest pain did not radiate, but she had shortness of breath with chest pain and unable to take in a deep breath. She also reports persistent diarrhea, fatigue and weakness. In August of this year patient was treated for cdiff and was sent home with PO antibiotics which she reports that she completed. She was then seen at [facility] on September 10 for the persistent diarrhea and was sent home on antibiotics. Completed abd pelvis ct: no significant interval change, mild cardiomegaly. I was contacted for L facial tingling as well as upper and lower extremities. CT head completed, reviewed, and discussed. No acute changes. Symptoms resolved. Would not require further imaging at this time. Discussed with nurse, patient with underlying anxiety likely precipitating symptoms. Recent Travel: No Known Allergies Allergy (Verified 09/20/16 11:41) HOME MEDICATIONS: Home Medications Medication Instructions Recorded Aspirin [ASA -] 81 mg PO DAILY 07/24/15 Amlodipine Besylate 5 mg PO DAILY 09/20/16 Carvedilol 6.25 mg PO BID 09/20/16 Gabapentin 100 mg PO HS 09/20/16 Isoniazid 300 mg PO DAILY 09/20/16 Pyridoxine HCl [Vitamin B-6] 100 mg PO DAILY 09/20/16 Cephalexin [Keflex] 250 mg PO BID #14 capsule 09/23/16 Walker [Ultra-Light Rollator] 1 each MC DAILY #1 each 09/23/16 PHYSICAL EXAMINATION Vital Signs - 24 hr 09/19/17 09/19/17 09/19/17 07:29 07:46 10:10 Temperature 98.7 F 98.3 F Pulse Rate 67 Pulse Rate [ 78 Left Radial] Respiratory 20 20 Rate Blood Pressure 154/64 Blood Pressure 143/80 [Left Arm] O2 Sat by Pulse 98 98 98 Oximetry (%) GENERAL: Awake, alert, and fully oriented, reports fatigue HEAD: Normal with no signs of trauma. EYES: Pupils equal, round and reactive to light, extraocular movements intact, sclera anicteric, conjunctiva clear. No lid lag. EARS, NOSE, THROAT: Ears normal, nares patent, oropharynx clear without exudates. Moist mucous membranes. NECK: Normal range of motion, supple without lymphadenopathy, JVD, or masses. LUNGS: Breath sounds equal. diminished bilaterally. HEART: Regular rate and rhythm ABDOMEN: Soft, nontender, not distended, normoactive bowel sounds, no guarding, no rebound, no masses. umbilical hernia MUSCULOSKELETAL: Normal range of motion at all joints. No bony deformities or tenderness. No CVA tenderness. UPPER EXTREMITIES: right arm fistula LOWER EXTREMITIES: trace edema bilaterally NEUROLOGICAL: Normal speech. Move all extremities equally, sensory intact, finger to nose normal PSYCHIATRIC: Cooperative. Good eye contact. Appropriate mood and affect. SKIN: Warm, dry, normal turgor, no rashes or lesions noted, normal capillary refill. Laboratory Results - last 24 hr 09/19/17 09/19/17 09/19/17 07:56 07:56 07:56 WBC 9.6 RBC 3.16 L Hgb 9.8 L Hct 29.2 L MCV 92.3 MCH 31.1 MCHC 33.7 RDW 16.7 H Plt Count 301 D MPV 9.6 Absolute Neuts (auto) 6.9 Neutrophils % 72.0 Lymphocytes % 18.1 D Monocytes % 7.2 Eosinophils % 1.9 Basophils % 0.8 Nucleated RBC % 0 PT with INR 10.10 INR 0.89 PTT (Actin FS) 35.5 Sodium 130 L Potassium 5.7 H Chloride 92 L Carbon Dioxide 18 L Anion Gap 20 H BUN 135 H* D Creatinine 8.1 H* Creat Clearance w eGFR 4.86 Random Glucose 117 H Calcium 9.6 Total Bilirubin 0.8 AST 23 ALT 27 Alkaline Phosphatase 164 H D Troponin I < 0.02 Total Protein 6.5 Albumin 3.3 L Imaging as above ASSESSMENT/PLAN: Patient is a 71 year old female with a significant PMH of ESRD (dialysis TThS) via right arm fistula. Other history includes CA, quadruple bypass, diabetes, hypertension. 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 She comes to the ED today with 10/10 chest pain that began this morning. Chest pain did not radiate, but she had shortness of breath with chest pain and unable to take in a deep breath. She also reports persistent diarrhea, fatigue and weakness. In August of this year patient was treated for cdiff and was sent home with PO antibiotics which she reports that she completed. She was then seen at [facility] on September 10 for the persistent diarrhea and was sent home on antibiotics. Completed abd pelvis ct: no significant interval change, mild cardiomegaly. I was contacted for L facial tingling as well as upper and lower extremities. CT head completed, reviewed, and discussed. No acute changes. Symptoms resolved. Would not require further imaging at this time. Discussed with nurse, patient with underlying anxiety likely precipitating symptoms. Monitor glucose, maintain normal range. Continue medical optimization. Neurologically stable.
--- NOTE | 2017-09-23 13:41 | PN ---
Progress Note (short form) - Note Progress Note: covering dr park Problems 1. ESRD 2. diarrhea 3. CAD 4. HTN 5. DM 6. hyperkalemia 7. anemia Last Vital Signs Temp Pulse Resp BP Pulse Ox 98.2 F 85 18 157/75 95 09/23/17 10:00 09/23/17 10:20 09/23/17 10:20 09/23/17 10:20 09/23/17 10:00 lungs clear heart reg abd soft nontender ext no edema CBC, BMP 09/23/17 07:35 09/23/17 07:15 IMP- esrd stable s/p hd Plan - next hd on monday
--- NOTE | 2017-09-23 14:32 | PN ---
Progress Note, Physician History of Present Illness: Infectious Disease f/u note: Pt with daughter at bedside. She is feeling a bit better. Denies any abd cramping/pain but c/o loose BMs after oral intake and some nausea without vomiting, only drinking nepro. Remains afebrile, without acute distress. Denies shortness of breath or chest pain. - Current Medication List Current Medications: Active Medications Acetaminophen (Tylenol -) 650 mg PO Q6H PRN PRN Reason: PAIN LEVEL 1-5 Last Admin: 09/22/17 22:14 Dose: 650 mg Albuterol/Ipratropium (Duoneb -) 1 amp NEB Q6H PRN PRN Reason: SHORTNESS OF BREATH Amlodipine Besylate (Norvasc -) 5 mg PO DAILY [facility] Last Admin: 09/23/17 11:02 Dose: 5 mg Aspirin (Asa -) 81 mg PO DAILY [facility] Last Admin: 09/23/17 11:02 Dose: 81 mg Carvedilol (Coreg -) 6.25 mg PO BID [facility] Last Admin: 09/23/17 11:02 Dose: 6.25 mg Gabapentin (Neurontin -) 100 mg PO [facility] Heparin Sodium (Porcine) (Heparin -) 5,000 unit SQ TID [facility] Last Admin: 09/23/17 14:01 Dose: Not Given Sodium Chloride (Normal Saline -) 250 mls @ 3,000 mls/hr IV PRN PRN PRN Reason: Hypotension during Dialysis Stop: 09/23/17 18:00 Insulin Aspart (Novolog Vial Sliding Scale -) 1 vial SQ [facility]; Protocol Last Admin: 09/23/17 10:57 Dose: Not Given Vancomycin HCl (Vancomycin Oral Solution) 125 mg PO Q6HPO [facility] Last Admin: 09/23/17 11:04 Dose: 125 mg Witch Lupis/Glycerin (Tucks Pads -) 1 pad TP PRN PRN PRN Reason: HEMORRHOIDS Last Admin: 09/21/17 23:23 Dose: 1 applic - Objective Vital Signs: Vital Signs Temperature 98.2 F 09/23/17 10:00 Pulse Rate 85 09/23/17 10:20 Respiratory Rate 18 09/23/17 10:20 Blood Pressure 157/75 09/23/17 10:20 O2 Sat by Pulse Oximetry (%) 95 09/23/17 10:00 Constitutional: Yes: No Distress, Calm Cardiovascular: Yes: Regular Rate and Rhythm Respiratory: Yes: CTA Bilaterally Gastrointestinal: Yes: Normal Bowel Sounds, Soft Neurological: Yes: Alert, Oriented Labs: CBC, BMP 09/23/17 07:35 09/23/17 07:15 INR, PTT INR 0.89 (0.83-1.09) 09/19/17 07:56 Microbiology 09/19/17 20:00 Blood - Peripheral Venous Blood Culture - Preliminary NO GROWTH OBTAINED AFTER 72 HOURS, INCUBATION TO CONTINUE FOR 2 DAYS. 09/19/17 20:00 Blood - Peripheral Venous Blood Culture - Preliminary NO GROWTH OBTAINED AFTER 72 HOURS, INCUBATION TO CONTINUE FOR 2 DAYS. 09/19/17 18:45 Stool Salmonella/Shigella Culture - Final 09/19/17 18:45 Stool Campylobacter Culture - Final NO GROWTH OF CAMPYLOBACTER SPECIES OBTAINED 09/19/17 18:45 Stool Yersinia Culture - Final NO GROWTH OF YERSINIA SPECIES OBTAINED 09/19/17 18:45 Stool Vibrio Culture - Final NO GROWTH OF VIBRIO SPECIES OBTAINED 09/19/17 18:45 Stool Escherichia coli 0157 Culture - Final NO GROWTH OF E COLI 0157 OBTAINED 09/19/17 18:45 Stool Clostridium difficile Antigen (NAOMI) - Final 09/19/17 18:45 Stool Clostridium difficile Toxin Assay - Final - ....Imaging Cat Scan: Report Reviewed Ultrasound: Report Reviewed Problem List - Problems (1) Diarrhea Code(s): R19.7 - DIARRHEA, UNSPECIFIED (2) Diastolic CHF Code(s): I50.30 - UNSPECIFIED DIASTOLIC (CONGESTIVE) HEART FAILURE (3) Hx of CABG Code(s): Z95.1 - PRESENCE OF AORTOCORONARY BYPASS GRAFT (4) ESRD (end stage renal disease) Code(s): N18.6 - END STAGE RENAL DISEASE (5) C. difficile colitis Code(s): A04.72 - ENTEROCOLITIS D/T CLOSTRIDIUM DIFFICILE, NOT SPCF RECUR (6) CAD (coronary artery disease) Code(s): I25.10 - ATHSCL HEART DISEASE OF [place] CORONARY ARTERY W/O ANG PCTRS Assessment/Plan 71 y.o. female with PMH of ESRD, CAD, CHF, C. difficile colitis presenting with shortness of breath/chest pain and loose BMs. -- all stool study results noted -- C. diff Ag+ -- continue Vancomycin po -- GI following vitals currently stable, afebrile, without leukocytosis continue monitor
[2017-09-23] MEDS ORDERED: EPOETIN ALFA 2,000 UNIT/1 ML VIAL IVPUSH ONE (14:46)
[2017-09-23] MEDS: GABAPENTIN 100 MG CAPSULE (FP) PO SCH (21:13)
[2017-09-23] MEDS: ACETAMINOPHEN 325 MG TABLET (FP) PO PRN (21:13)
[2017-09-24] MEDS: VANCOMYCIN 250 MG/5 ML ORAL SOLUTION PO SCH ×4 (00:05→17:14)
[2017-09-24] MEDS: HEPARIN NA (PORCINE) 5,000 UNITS/ML 1ML VIAL SQ SCH (05:16)
[2017-09-24] MEDS: INSULIN SLIDING SCALE (NOVOLOG) 1 VIAL SQ SCH ×4 (06:16→21:14)
[2017-09-24 08:17] LABS: BASO % 1.2 % (0-2.0); EOS % 2.5 % (0-4.5); HEMATOCRIT 28.5 % (32.4-45.2); HEMOGLOBIN 9.4 GM/dL (10.7-15.3); LYMPH % 21.4 % (8-40); MCH 30.6 pg (25.7-33.7); MCHC 32.9 g/dl (32.0-36.0); MEAN CELL VOLUME 93.1 fl (80-96); MEAN PLT VOLUME 9.7 fl (7.5-11.1); MONO % 7.2 % (3.8-10.2); NEUT % 67.7 % (42.8-82.8); PLATELET COUNT 266 K/MM3 (134-434); RBC 3.07 M/mm3 (3.60-5.2); RDW 16.5 % (11.6-15.6); WHITE BLOOD COUNT 7.1 K/mm3 (4.0-10.0)
[2017-09-24 08:55] LABS: ALBUMIN 3.1 g/dl (3.4-5.0); ANION GAP 8 (8-16); BLOOD UREA NITROGEN 43 mg/dL (7-18); CALCIUM 8.9 mg/dL (8.5-10.1); CHLORIDE 97 mmol/L (98-107); CO2 34 mmol/L (21-32); CREATININE 4.2 mg/dL (0.55-1.02); GLUCOSE,RANDOM 105 mg/dL (74-106); MAGNESIUM 2.6 mg/dL (1.8-2.4); POTASSIUM 4.5 mmol/L (3.5-5.1); SGOT/AST 24 U/L (15-37); SGPT/ALT 35 U/L (12-78); SODIUM 139 mmol/L (136-145)
[2017-09-24 08:57] LABS: ALK PHOS 161 U/L (45-117); BILIRUBIN,TOTAL 0.2 mg/dL (0.2-1.0); TOT PROT 6.4 g/dl (6.4-8.2)
[2017-09-24] MEDS: amLODIPine BESYLATE 5 MG TABLET (FP) PO SCH (09:59)
[2017-09-24] MEDS: CARVEDILOL 6.25 MG TABLET (FP) PO SCH ×2 (09:59→21:15)
[2017-09-24] MEDS: PHENYLEPH/MINERAL OIL/PETROLAT 28 GM OINTMENT RC SCH (11:59)
--- NOTE | 2017-09-24 12:26 | PN ---
Progress Note (short form) - Note Progress Note: Neurology HISTORY OF PRESENT ILLNESS: Patient is a 71 year old female with a significant PMH of ESRD (dialysis TThS) via right arm fistula. Other history includes [place], quadruple bypass, diabetes, hypertension. 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 She comes to the ED today with 10/10 chest pain that began this morning. Chest pain did not radiate, but she had shortness of breath with chest pain and unable to take in a deep breath. She also reports persistent diarrhea, fatigue and weakness. In August of this year patient was treated for cdiff and was sent home with PO antibiotics which she reports that she completed. She was then seen at [facility] on September 10 for the persistent diarrhea and was sent home on antibiotics. Completed abd pelvis ct: no significant interval change, mild cardiomegaly. I was contacted for L facial tingling as well as upper and lower extremities. CT head completed, reviewed, and discussed. No acute changes. Symptoms resolved. Would not require further imaging at this time. Discussed with nurse, patient with underlying anxiety likely precipitating symptoms. remains stable at this time. No new neurologic events. Active Medications Acetaminophen (Tylenol -) 650 mg PO Q6H PRN PRN Reason: PAIN LEVEL 1-5 Last Admin: 09/23/17 21:13 Dose: 650 mg Albuterol/Ipratropium (Duoneb -) 1 amp NEB Q6H PRN PRN Reason: SHORTNESS OF BREATH Amlodipine Besylate (Norvasc -) 5 mg PO DAILY [facility] Last Admin: 09/24/17 09:59 Dose: 5 mg Carvedilol (Coreg -) 6.25 mg PO BID [facility] Last Admin: 09/24/17 09:59 Dose: 6.25 mg Gabapentin (Neurontin -) 100 mg PO HS [facility] Last Admin: 09/23/17 21:13 Dose: 100 mg Heparin Sodium (Porcine) (Heparin -) 5,000 unit SQ TID [facility] Last Admin: 09/24/17 05:16 Dose: Not Given Insulin Aspart (Novolog Vial Sliding Scale -) 1 vial SQ ACHS [facility]; Protocol Last Admin: 09/24/17 11:59 Dose: Not Given Vancomycin HCl (Vancomycin Oral Solution) 125 mg PO Q6HPO [facility] Last Admin: 09/24/17 11:59 Dose: 125 mg Witch Lupis/Glycerin (Tucks Pads -) 1 pad TP PRN PRN PRN Reason: HEMORRHOIDS Last Admin: 09/21/17 23:23 Dose: 1 applic PHYSICAL EXAMINATION Vital Signs Temperature 98.2 F 09/24/17 10:00 Pulse Rate 89 09/24/17 10:00 Respiratory Rate 20 09/24/17 10:00 Blood Pressure 175/80 09/24/17 10:00 O2 Sat by Pulse Oximetry (%) 97 09/24/17 10:00 GENERAL: Awake, alert, and fully oriented, reports fatigue HEAD: Normal with no signs of trauma. EYES: Pupils equal, round and reactive to light, extraocular movements intact, sclera anicteric, conjunctiva clear. No lid lag. EARS, NOSE, THROAT: Ears normal, nares patent, oropharynx clear without exudates. Moist mucous membranes. NECK: Normal range of motion, supple without lymphadenopathy, JVD, or masses. LUNGS: Breath sounds equal. diminished bilaterally. HEART: Regular rate and rhythm ABDOMEN: Soft, nontender, not distended, normoactive bowel sounds, no guarding, no rebound, no masses. umbilical hernia MUSCULOSKELETAL: Normal range of motion at all joints. No bony deformities or tenderness. No CVA tenderness. UPPER EXTREMITIES: right arm fistula LOWER EXTREMITIES: trace edema bilaterally NEUROLOGICAL: Normal speech. Move all extremities equally, sensory intact, finger to nose normal PSYCHIATRIC: Cooperative. Good eye contact. Appropriate mood and affect. SKIN: Warm, dry, normal turgor, no rashes or lesions noted, normal capillary refill. CBCD WBC 7.1 K/mm3 (4.0-10.0) 09/24/17 07:08 RBC 3.07 M/mm3 (3.60-5.2) L 09/24/17 07:08 Hgb 9.4 GM/dL (10.7-15.3) L 09/24/17 07:08 Hct 28.5 % (32.4-45.2) L 09/24/17 07:08 MCV 93.1 fl (80-96) 09/24/17 07:08 MCHC 32.9 g/dl (32.0-36.0) 09/24/17 07:08 RDW 16.5 % (11.6-15.6) H 09/24/17 07:08 Plt Count 266 K/MM3 (134-434) 09/24/17 07:08 MPV 9.7 fl (7.5-11.1) 09/24/17 07:08 CMP Sodium 139 mmol/L (136-145) 09/24/17 07:08 Potassium 4.5 mmol/L (3.5-5.1) 09/24/17 07:08 Chloride 97 mmol/L (98-107) L 09/24/17 07:08 Carbon Dioxide 34 mmol/L (21-32) H 09/24/17 07:08 Anion Gap 8 (8-16) 09/24/17 07:08 BUN 43 mg/dL (7-18) H D 09/24/17 07:08 Creatinine 4.2 mg/dL (0.55-1.02) H 09/24/17 07:08 Creat Clearance w eGFR 10.37 (>60) 09/24/17 07:08 Random Glucose 105 mg/dL (74-106) 09/24/17 07:08 Calcium 8.9 mg/dL (8.5-10.1) 09/24/17 07:08 Total Bilirubin 0.2 mg/dL (0.2-1.0) 09/24/17 07:08 AST 24 U/L (15-37) 09/24/17 07:08 ALT 35 U/L (12-78) 09/24/17 07:08 Alkaline Phosphatase 161 U/L (45-117) H D 09/24/17 07:08 Total Protein 6.4 g/dl (6.4-8.2) 09/24/17 07:08 Albumin 3.1 g/dl (3.4-5.0) L 09/24/17 07:08 CARDIAC ENZYMES Troponin I < 0.02 ng/ml (0.00-0.05) 09/20/17 02:45 Ct head as above ASSESSMENT/PLAN: Patient is a 71 year old female with a significant PMH of ESRD (dialysis TThS) via right arm fistula. Other history includes [place], quadruple bypass, diabetes, hypertension. 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 She comes to the ED today with 10/10 chest pain that began this morning. Chest pain did not radiate, but she had shortness of breath with chest pain and unable to take in a deep breath. She also reports persistent diarrhea, fatigue and weakness. In August of this year patient was treated for cdiff and was sent home with PO antibiotics which she reports that she completed. She was then seen at [facility] on September 10 for the persistent diarrhea and was sent home on antibiotics. Completed abd pelvis ct: no significant interval change, mild cardiomegaly. I was contacted for L facial tingling as well as upper and lower extremities. CT head completed, reviewed, and discussed. No acute changes. Symptoms resolved. Would not require further imaging at this time. Discussed with nurse, patient with underlying anxiety likely precipitating symptoms. Monitor glucose, maintain normal range. Continue medical optimization. Neurologically stable, no new neurologic events.
--- NOTE | 2017-09-24 12:27 | PN ---
Physical Exam: SUBJECTIVE: Patient seen and examined oob to chair. Voices no complaints. No diarrhea. OBJECTIVE: Vital Signs Period Temp Pulse Resp BP Sys/Rodriguez Pulse Ox Last 24 Hr 98.2 F-98.6 F 72-89 18-20 131-180/54-81 95-97 GENERAL: The patient is awake, alert, and fully oriented, in no acute distress. LUNGS: Lungs clear HEART: Regular rate and rhythm, S1, S2 ABDOMEN: Soft, nondistended, normoactive bowel sounds; abdominal hernia reducible but tender EXTREMITIES: 2+ pulses, warm, well-perfused, no edema. NEUROLOGICAL: Cranial nerves II through XII grossly intact. Normal speech, moves all extremities freely Laboratory Results - last 24 hr 09/24/17 09/24/17 07:08 07:08 WBC 7.1 RBC 3.07 L Hgb 9.4 L Hct 28.5 L MCV 93.1 MCH 30.6 MCHC 32.9 RDW 16.5 H Plt Count 266 MPV 9.7 Absolute Neuts (auto) 4.8 Neutrophils % 67.7 Lymphocytes % 21.4 Monocytes % 7.2 Eosinophils % 2.5 Basophils % 1.2 Nucleated RBC % 0 Sodium 139 Potassium 4.5 Chloride 97 L Carbon Dioxide 34 H Anion Gap 8 BUN 43 H D Creatinine 4.2 H Creat Clearance w eGFR 10.37 Random Glucose 105 Calcium 8.9 Magnesium 2.6 H Total Bilirubin 0.2 AST 24 ALT 35 Alkaline Phosphatase 161 H D Total Protein 6.4 Albumin 3.1 L Active Medications Generic Name Dose Route Start Last Admin Trade Name Freq PRN Reason Stop Dose Admin Acetaminophen 650 mg 09/19/17 18:38 09/23/17 21:13 Tylenol - PO 650 mg Q6H PRN Administration PAIN LEVEL 1-5 Albuterol/Ipratropium 1 amp 09/19/17 21:55 Duoneb - NEB Q6H PRN SHORTNESS OF BREATH Amlodipine Besylate 5 mg 09/20/17 10:00 09/24/17 09:59 Norvasc - PO 5 mg DAILY [facility] Administration Carvedilol 6.25 mg 09/19/17 22:00 09/24/17 09:59 Coreg - PO 6.25 mg BID [facility] Administration Gabapentin 100 mg 09/23/17 22:00 09/23/17 21:13 Neurontin - PO 100 mg HS [facility] Administration Heparin Sodium (Porcine) 5,000 unit 09/19/17 22:00 09/24/17 05:16 Heparin - SQ Not Given TID [facility] Insulin Aspart 1 vial 09/19/17 22:00 09/24/17 11:59 Novolog Vial Sliding Scale - SQ Not Given ACHS [facility] Protocol Vancomycin HCl 125 mg 09/20/17 12:00 09/24/17 11:59 Vancomycin Oral Solution PO 125 mg Q6HPO [facility] Administration Witch Lupis/Glycerin 1 pad 09/21/17 12:37 09/21/17 23:23 Tucks Pads - TP 1 applic PRN PRN Administration HEMORRHOIDS ASSESSMENT/PLAN: 71 year old female with PMH significant for HTN, CAD s/p CABG x 4, ESRD on HD ( ,,Mon), NIDDM, and GERD. Recent h/o c.diff. Admitted for chest pain, and persistent diarrhea. Left sided facial/body numbness and tingling --new onset 09/22 --nonfocal exam --09/22 CT head: unremarkable --seen and evaluated by neuro; stable; symptoms likely precipitated by anxiety; no further workup indicated Chest pain --troponin neg x 4 --CXR unremarkable --ECG: not suggestive of acute ischemic event --stress MIBI earlier this year at [facility] with small area of mildly intense myocardiac ischemia, normal LVEF --continue carvedilol --hold ASA for procedure Diastolic heart failure Severe valvular pathology Mild pulmonary hypertension --09/20 Echo: mild cLVH, LV normal, impaired relaxation; RV normal; BLAE; moderate to severe MR; moderate TR; mild pHTN --per Dr. Leigh patient can be discharged from [facility] perspective Diarrhea --C.diff Ag +, toxin - --continue Vancomycin 125mg po q6h for total of 10 days (day #5) Large gallstones --09/19 CTAP: multiple large gallstones without gross pericholecystic fluid --09/22 US: contracted gallbladder with multiple stones and without evidence of pericholecystic fluid --symptomatic, nausea and pain with food --EGD tomorrow with Dr. Bell Supraumbilical hernia --fat containing, no evidence of herniating bowel loops --outpatient followup with [facility] surgeon ESRD on HD (T,Th,Sat) --HD yesterday NIDDM --Novolog sliding scale coverage FEN Fluids: PO intake adequate Electrolytes: replete as indicated Nutrition: renal diabetic; NPO after midnight DVT prophylaxis: hold subq heparin for procedure tomorrow; SCDs, oob, ambulation Physical therapy Dispo: continues to require inpatient care. Full code. Visit type - Emergency Visit Emergency Visit: Yes ED Registration Date: 09/19/17 Care time: The patient presented to the Emergency Department on the above date and was hospitalized for further evaluation of their emergent condition. - New Patient This patient is new to me today: No - Critical Care Critical Care patient: No
--- NOTE | 2017-09-24 15:13 | PN ---
Progress Note (short form) - Note Progress Note: covering dr park Problems 1. ESRD on HD (T,Th,Sat), 2. diarrhea- cdiff pos 3. CAD s/p CABG x 4 4. HTN 5. DM 6. hyperkalemia 7. anemia GERD h/o c diff chest pains s/p left sided weakness Diastolic heart failure Severe valvular pathology Mild pulmonary hypertension (echo) Large gallstones Supraumbilical hernia Current Medications Acetaminophen (Tylenol -) 650 mg PO Q6H PRN PRN Reason: PAIN LEVEL 1-5 Last Admin: 09/23/17 21:13 Dose: 650 mg Albuterol/Ipratropium (Duoneb -) 1 amp NEB Q6H PRN PRN Reason: SHORTNESS OF BREATH Amlodipine Besylate (Norvasc -) 5 mg PO DAILY [facility] Last Admin: 09/24/17 09:59 Dose: 5 mg Carvedilol (Coreg -) 6.25 mg PO BID [facility] Last Admin: 09/24/17 09:59 Dose: 6.25 mg Gabapentin (Neurontin -) 100 mg PO HS [facility] Last Admin: 09/23/17 21:13 Dose: 100 mg Heparin Sodium (Porcine) (Heparin -) 5,000 unit SQ TID [facility] Last Admin: 09/24/17 05:16 Dose: Not Given Insulin Aspart (Novolog Vial Sliding Scale -) 1 vial SQ ACHS [facility]; Protocol Last Admin: 09/24/17 11:59 Dose: Not Given Vancomycin HCl (Vancomycin Oral Solution) 125 mg PO Q6HPO [facility] Last Admin: 09/24/17 11:59 Dose: 125 mg Witch Lupis/Glycerin (Tucks Pads -) 1 pad TP PRN PRN PRN Reason: HEMORRHOIDS Last Admin: 09/21/17 23:23 Dose: 1 applic Last Vital Signs Temp Pulse Resp BP Pulse Ox 98.2 F 89 20 175/80 97 09/24/17 10:00 09/24/17 10:00 09/24/17 10:00 09/24/17 10:00 09/24/17 10:00 lungs clear heart reg abd soft nontender ext no edema CBC, BMP 09/24/17 07:08 09/24/17 07:08 IMP- esrd stable s/p hd r/o cva Plan - next hd on monday
--- NOTE | 2017-09-24 17:13 | PN ---
Progress Note, Physician History of Present Illness: Pt remains afebrile. No abd pain, without specific complaints. - Current Medication List Current Medications: Active Medications Acetaminophen (Tylenol -) 650 mg PO Q6H PRN PRN Reason: PAIN LEVEL 1-5 Last Admin: 09/23/17 21:13 Dose: 650 mg Albuterol/Ipratropium (Duoneb -) 1 amp NEB Q6H PRN PRN Reason: SHORTNESS OF BREATH Amlodipine Besylate (Norvasc -) 5 mg PO DAILY [facility] Last Admin: 09/24/17 09:59 Dose: 5 mg Carvedilol (Coreg -) 6.25 mg PO BID [facility] Last Admin: 09/24/17 09:59 Dose: 6.25 mg Gabapentin (Neurontin -) 100 mg PO HS [facility] Last Admin: 09/23/17 21:13 Dose: 100 mg Heparin Sodium (Porcine) (Heparin -) 5,000 unit SQ TID [facility] Last Admin: 09/24/17 05:16 Dose: Not Given Insulin Aspart (Novolog Vial Sliding Scale -) 1 vial SQ [facility]; Protocol Last Admin: 09/24/17 11:59 Dose: Not Given Vancomycin HCl (Vancomycin Oral Solution) 125 mg PO Q6HPO [facility] Last Admin: 09/24/17 11:59 Dose: 125 mg Witch Lupis/Glycerin (Tucks Pads -) 1 pad TP PRN PRN PRN Reason: HEMORRHOIDS Last Admin: 09/21/17 23:23 Dose: 1 applic - Objective Vital Signs: Vital Signs Temperature 98.0 F 09/24/17 14:32 Pulse Rate 87 09/24/17 14:32 Respiratory Rate 18 09/24/17 14:32 Blood Pressure 131/69 09/24/17 14:32 O2 Sat by Pulse Oximetry (%) 97 09/24/17 10:00 Constitutional: Yes: No Distress, Calm Cardiovascular: Yes: Regular Rate and Rhythm Respiratory: Yes: Regular Gastrointestinal: Yes: Normal Bowel Sounds, Soft Neurological: Yes: Alert Labs: CBC, BMP 09/24/17 07:08 09/24/17 07:08 INR, PTT INR 0.89 (0.83-1.09) 09/19/17 07:56 Problem List - Problems (1) Diarrhea Code(s): R19.7 - DIARRHEA, UNSPECIFIED (2) Diastolic CHF Code(s): I50.30 - UNSPECIFIED DIASTOLIC (CONGESTIVE) HEART FAILURE (3) Hx of CABG Code(s): Z95.1 - PRESENCE OF AORTOCORONARY BYPASS GRAFT (4) ESRD (end stage renal disease) Code(s): N18.6 - END STAGE RENAL DISEASE (5) C. difficile colitis Code(s): A04.72 - ENTEROCOLITIS D/T CLOSTRIDIUM DIFFICILE, NOT SPCF RECUR (6) CAD (coronary artery disease) Code(s): I25.10 - ATHSCL HEART DISEASE OF [place] CORONARY ARTERY W/O ANG PCTRS Assessment/Plan 71 y.o. female with PMH of ESRD, CAD, CHF, C. difficile colitis presenting with shortness of breath/chest pain and loose BMs. -- all stool study results noted, no abd pain, afebrile -- C. diff Ag+ -- continue Vancomycin po x total 10 days vitals currently stable continue monitor
[2017-09-24] MEDS ORDERED: PT OWN MED DRAWER 7, Y5N ONE (18:23)
[2017-09-24] MEDS: GABAPENTIN 100 MG CAPSULE (FP) PO SCH (21:15)
[2017-09-24] MEDS: ACETAMINOPHEN 325 MG TABLET (FP) PO PRN (21:15)
[2017-09-25] MEDS: VANCOMYCIN 250 MG/5 ML ORAL SOLUTION PO SCH ×4 (00:53→18:08)
[2017-09-25] MEDS ORDERED: RANITIDINE HCL 150 MG TABLET (FP) PO ONE (01:30)
[2017-09-25] MEDS: INSULIN SLIDING SCALE (NOVOLOG) 1 VIAL SQ SCH ×4 (06:08→23:47)
[2017-09-25] MEDS: amLODIPine BESYLATE 5 MG TABLET (FP) PO SCH (09:18)
[2017-09-25] MEDS: CARVEDILOL 6.25 MG TABLET (FP) PO SCH ×2 (09:18→21:09)
--- NOTE | 2017-09-25 12:06 | PN ---
Progress Note (short form) - Note Progress Note: Subjective: The patient was seen and examined at the bedside, she has complaints no complaints at this time For EGD today Current Medications Generic Name Dose Route Start Last Admin Trade Name Jessica PRN Reason Stop Dose Admin Acetaminophen 650 mg 09/19/17 18:38 09/24/17 21:15 Tylenol - PO 650 mg Q6H PRN Administration PAIN LEVEL 1-5 Albuterol/Ipratropium 1 amp 09/19/17 21:55 Duoneb - NEB Q6H PRN SHORTNESS OF BREATH Amlodipine Besylate 5 mg 09/20/17 10:00 09/25/17 09:18 Norvasc - PO 5 mg DAILY [facility] Administration Carvedilol 6.25 mg 09/19/17 22:00 09/25/17 09:18 Coreg - PO 6.25 mg BID [facility] Administration Gabapentin 100 mg 09/23/17 22:00 09/24/17 21:15 Neurontin - PO 100 mg HS [facility] Administration Heparin Sodium (Porcine) 5,000 unit 09/19/17 22:00 09/24/17 05:16 Heparin - SQ Not Given TID [facility] Insulin Aspart 1 vial 09/19/17 22:00 09/25/17 06:08 Novolog Vial Sliding Scale - SQ Not Given ACHS [facility] Protocol Vancomycin HCl 125 mg 09/20/17 12:00 09/25/17 05:10 Vancomycin Oral Solution PO Not Given Q6HPO [facility] Witch Lupis/Glycerin 1 pad 09/21/17 12:37 09/21/17 23:23 Tucks Pads - TP 1 applic PRN PRN Administration HEMORRHOIDS Objective: Vital Signs Period Temp Pulse Resp BP Sys/Rodriguez Pulse Ox Last 24 Hr 98 F-98.4 F 73-87 18-20 131-188/69-77 97 Physical Exam: General: NAD, A&Ox3 Lungs: CTA bilaterally Heart: RRR, S1S2 Abd: Soft, non-tender. Hyperactive bowel sounds. + hernia Ext: Warm, well-perfused CBCD WBC 7.1 K/mm3 (4.0-10.0) 09/24/17 07:08 RBC 3.07 M/mm3 (3.60-5.2) L 09/24/17 07:08 Hgb 9.4 GM/dL (10.7-15.3) L 09/24/17 07:08 Hct 28.5 % (32.4-45.2) L 09/24/17 07:08 MCV 93.1 fl (80-96) 09/24/17 07:08 MCHC 32.9 g/dl (32.0-36.0) 09/24/17 07:08 RDW 16.5 % (11.6-15.6) H 09/24/17 07:08 Plt Count 266 K/MM3 (134-434) 09/24/17 07:08 MPV 9.7 fl (7.5-11.1) 09/24/17 07:08 CMP Sodium 139 mmol/L (136-145) 09/24/17 07:08 Potassium 4.5 mmol/L (3.5-5.1) 09/24/17 07:08 Chloride 97 mmol/L (98-107) L 09/24/17 07:08 Carbon Dioxide 34 mmol/L (21-32) H 09/24/17 07:08 Anion Gap 8 (8-16) 09/24/17 07:08 BUN 43 mg/dL (7-18) H D 09/24/17 07:08 Creatinine 4.2 mg/dL (0.55-1.02) H 09/24/17 07:08 Creat Clearance w eGFR 10.37 (>60) 09/24/17 07:08 Random Glucose 105 mg/dL (74-106) 09/24/17 07:08 Calcium 8.9 mg/dL (8.5-10.1) 09/24/17 07:08 Total Bilirubin 0.2 mg/dL (0.2-1.0) 09/24/17 07:08 AST 24 U/L (15-37) 09/24/17 07:08 ALT 35 U/L (12-78) 09/24/17 07:08 Alkaline Phosphatase 161 U/L (45-117) H D 09/24/17 07:08 Total Protein 6.4 g/dl (6.4-8.2) 09/24/17 07:08 Albumin 3.1 g/dl (3.4-5.0) L 09/24/17 07:08 CARDIAC ENZYMES Troponin I < 0.02 ng/ml (0.00-0.05) 09/20/17 02:45 Microbiology 09/19/17 20:00 Blood - Peripheral Venous Blood Culture - Final NO GROWTH AFTER 5 DAYS INCUBATION 09/19/17 20:00 Blood - Peripheral Venous Blood Culture - Final NO GROWTH AFTER 5 DAYS INCUBATION 09/19/17 18:45 Stool Salmonella/Shigella Culture - Final 09/19/17 18:45 Stool Campylobacter Culture - Final NO GROWTH OF CAMPYLOBACTER SPECIES OBTAINED 09/19/17 18:45 Stool Yersinia Culture - Final NO GROWTH OF YERSINIA SPECIES OBTAINED 09/19/17 18:45 Stool Vibrio Culture - Final NO GROWTH OF VIBRIO SPECIES OBTAINED 09/19/17 18:45 Stool Escherichia coli 0157 Culture - Final NO GROWTH OF E COLI 0157 OBTAINED 09/19/17 18:45 Stool Clostridium difficile Antigen (NAOMI) - Final 09/19/17 18:45 Stool Clostridium difficile Toxin Assay - Final Assessment: This is a 71 year old female with PMHx of ESRD (on HD T,Th,S), [place], quadruple bypass, DM, GERD, HTN, who presented to the ED with chest pain, diarrhea, fatigue, weakness. Plan: 1) Left sided facial/body numbness and tingling - Resolved - Neuro exam wnl - CT head with no acute changes - Appreciate neurology consult 2) Chest pain - Resolved - Trop x4 negative - ECHO: normal LVEF. Left atrium is severe dilated. Atrial septum is aneurysmal without evidence of shunting. Moderate to severe MR. Mod TR. RVSP is elevated. Mild pulmonary HTN. Right atrium is mildly dilated - Patient had cardiac workup at [facility] - Appreciate cardiology consult: spoke to Dr. Leigh who states from cards perspective, patient can be discharged 3) Diarrhea - Resolved - C.diff Ag +, toxin - - Continue Vancomycin 125mg po q6h for total of 10 days, last day (09/29) 4) Large gallstones - As evidence on CT. Without gross pericholecystic free fluid - Patient non-tender on exam, however is reporting epigastric pain. No feeling of satiation - EGD scheduled for today, NPO - Appreciate GI consult 5) Large hernia - As evidence on CT. Fat-containing hernia, without herniating bowel loops seen - Can follow-up with surgeon as outpatient 6) ESRD - Tolerated HD yesterday - Appreciate nephrology consult 7) DM - BGM ACHS - ISS ACHS 8) F/E/N: - Monitor electrolytes - Renal/diabetic diet 9) Prophylaxis: - Heparin 5,000u sq tid 10) Dispo: - Requires continued inpatient care CODE STATUS: FULL CODE Visit type - Emergency Visit Emergency Visit: Yes ED Registration Date: 09/19/17 Care time: The patient presented to the Emergency Department on the above date and was hospitalized for further evaluation of their emergent condition. - New Patient This patient is new to me today: No - Critical Care Critical Care patient: No
--- NOTE | 2017-09-25 14:31 | PN ---
Progress Note, Physician History of Present Illness: stable no issues await for endoscopy - Current Medication List Current Medications: Active Medications Acetaminophen (Tylenol -) 650 mg PO Q6H PRN PRN Reason: PAIN LEVEL 1-5 Last Admin: 09/24/17 21:15 Dose: 650 mg Albuterol/Ipratropium (Duoneb -) 1 amp NEB Q6H PRN PRN Reason: SHORTNESS OF BREATH Amlodipine Besylate (Norvasc -) 5 mg PO DAILY [facility] Last Admin: 09/25/17 09:18 Dose: 5 mg Carvedilol (Coreg -) 6.25 mg PO BID [facility] Last Admin: 09/25/17 09:18 Dose: 6.25 mg Gabapentin (Neurontin -) 100 mg PO HS [facility] Last Admin: 09/24/17 21:15 Dose: 100 mg Heparin Sodium (Porcine) (Heparin -) 5,000 unit SQ TID [facility] Last Admin: 09/24/17 05:16 Dose: Not Given Insulin Aspart (Novolog Vial Sliding Scale -) 1 vial SQ [facility]; Protocol Last Admin: 09/25/17 06:08 Dose: Not Given Vancomycin HCl (Vancomycin Oral Solution) 125 mg PO Q6HPO [facility] Last Admin: 09/25/17 05:10 Dose: Not Given Witch Lupis/Glycerin (Tucks Pads -) 1 pad TP PRN PRN PRN Reason: HEMORRHOIDS Last Admin: 09/21/17 23:23 Dose: 1 applic - Objective Vital Signs: Vital Signs Temperature 98 F 09/25/17 08:53 Pulse Rate 77 09/25/17 08:53 Respiratory Rate 20 09/25/17 08:53 Blood Pressure 188/74 09/25/17 08:53 O2 Sat by Pulse Oximetry (%) 97 09/24/17 21:00 Constitutional: Yes: No Distress, Calm Cardiovascular: Yes: Regular Rate and Rhythm Respiratory: Yes: Regular, CTA Bilaterally Gastrointestinal: Yes: Normal Bowel Sounds, Soft Musculoskeletal: Yes: WNL Extremities: Yes: WNL Neurological: Yes: Alert, Oriented Psychiatric: Yes: Alert, Oriented Labs: CBC, BMP 09/24/17 07:08 09/24/17 07:08 INR, PTT INR 0.89 (0.83-1.09) 09/19/17 07:56 Assessment/Plan Problem List - Problems (1) Diarrhea Code(s): R19.7 - DIARRHEA, UNSPECIFIED (2) Diastolic CHF Code(s): I50.30 - UNSPECIFIED DIASTOLIC (CONGESTIVE) HEART FAILURE (3) Hx of CABG Code(s): Z95.1 - PRESENCE OF AORTOCORONARY BYPASS GRAFT (4) ESRD (end stage renal disease) Code(s): N18.6 - END STAGE RENAL DISEASE (5) C. difficile colitis Code(s): A04.72 - ENTEROCOLITIS D/T CLOSTRIDIUM DIFFICILE, NOT SPCF RECUR (6) CAD (coronary artery disease) Code(s): I25.10 - ATHSCL HEART DISEASE OF [place] CORONARY ARTERY W/O ANG PCTRS Assessment/Plan 71 y.o. female with PMH of ESRD, CAD, CHF, C. difficile colitis presenting with shortness of breath/chest pain and loose BMs. -- all stool study results noted, no abd pain, afebrile -- C. diff Ag+ -- continue Vancomycin po x total 10 days
--- NOTE | 2017-09-25 14:43 | PN ---
Progress Note, Physician History of Present Illness: Pt seen and examined at bedside. She is awake and alert. She feels that diarrhea is improving. - Current Medication List Current Medications: Active Medications Acetaminophen (Tylenol -) 650 mg PO Q6H PRN PRN Reason: PAIN LEVEL 1-5 Last Admin: 09/24/17 21:15 Dose: 650 mg Albuterol/Ipratropium (Duoneb -) 1 amp NEB Q6H PRN PRN Reason: SHORTNESS OF BREATH Amlodipine Besylate (Norvasc -) 5 mg PO DAILY [facility] Last Admin: 09/25/17 09:18 Dose: 5 mg Carvedilol (Coreg -) 6.25 mg PO BID [facility] Last Admin: 09/25/17 09:18 Dose: 6.25 mg Gabapentin (Neurontin -) 100 mg PO HS [facility] Last Admin: 09/24/17 21:15 Dose: 100 mg Heparin Sodium (Porcine) (Heparin -) 5,000 unit SQ TID [facility] Last Admin: 09/24/17 05:16 Dose: Not Given Insulin Aspart (Novolog Vial Sliding Scale -) 1 vial SQ [facility]; Protocol Last Admin: 09/25/17 14:37 Dose: Not Given Vancomycin HCl (Vancomycin Oral Solution) 125 mg PO Q6HPO [facility] Last Admin: 09/25/17 14:38 Dose: Not Given Witch Lupis/Glycerin (Tucks Pads -) 1 pad TP PRN PRN PRN Reason: HEMORRHOIDS Last Admin: 09/21/17 23:23 Dose: 1 applic - Objective Vital Signs: Vital Signs Temperature 98 F 09/25/17 08:53 Pulse Rate 77 09/25/17 08:53 Respiratory Rate 20 09/25/17 08:53 Blood Pressure 188/74 09/25/17 08:53 O2 Sat by Pulse Oximetry (%) 97 09/24/17 21:00 Constitutional: Yes: Calm Eyes: Yes: Conjunctiva Clear HENT: Yes: Atraumatic Neck: Yes: Supple Cardiovascular: Yes: S1, S2 Respiratory: Yes: CTA Bilaterally Gastrointestinal: Yes: Soft Musculoskeletal: Yes: WNL Edema: Yes Edema: LLE: Trace, RLE: Trace Neurological: Yes: Oriented Psychiatric: Yes: Oriented Labs: CBC, BMP 09/24/17 07:08 09/24/17 07:08 INR, PTT INR 0.89 (0.83-1.09) 09/19/17 07:56 Problem List - Problems (1) Diarrhea Code(s): R19.7 - DIARRHEA, UNSPECIFIED (2) ESRD (end stage renal disease) Code(s): N18.6 - END STAGE RENAL DISEASE Assessment/Plan Current Medications Generic Name Dose Route Start Last Admin Trade Name Freq PRN Reason Stop Dose Admin Acetaminophen 650 mg 09/19/17 18:38 09/24/17 21:15 Tylenol - PO 650 mg Q6H PRN Administration PAIN LEVEL 1-5 Albuterol/Ipratropium 1 amp 09/19/17 21:55 Duoneb - NEB Q6H PRN SHORTNESS OF BREATH Amlodipine Besylate 5 mg 09/20/17 10:00 09/25/17 09:18 Norvasc - PO 5 mg DAILY [facility] Administration Carvedilol 6.25 mg 09/19/17 22:00 09/25/17 09:18 Coreg - PO 6.25 mg BID [facility] Administration Gabapentin 100 mg 09/23/17 22:00 09/24/17 21:15 Neurontin - PO 100 mg HS [facility] Administration Heparin Sodium (Porcine) 5,000 unit 09/19/17 22:00 09/24/17 05:16 Heparin - SQ Not Given TID [facility] Insulin Aspart 1 vial 09/19/17 22:00 09/25/17 14:37 Novolog Vial Sliding Scale - SQ Not Given ACHS [facility] Protocol Vancomycin HCl 125 mg 09/20/17 12:00 09/25/17 14:38 Vancomycin Oral Solution PO Not Given Q6HPO [facility] Witch Lupis/Glycerin 1 pad 09/21/17 12:37 09/21/17 23:23 Tucks Pads - TP 1 applic PRN PRN Administration HEMORRHOIDS Impression 1. ESRD 2. diarrhea 3. CAD 4. HTN 5. DM 6. hyperkalemia 7. anemia Plan - will arrange for HD tomorrow - pt going for endoscopy today - renal diet - HD 3 hrs, 350 abf, 2 k bath, avg, heparin 1000 units - will follow Dr Mosquera
[2017-09-25] MEDS ORDERED: ETOMIDATE 20 MG/10 ML AMPUL IVPUSH ONE (15:12)
[2017-09-25] MEDS ORDERED: PROPOFOL 20 ML ONE (15:12)
--- NOTE | 2017-09-25 16:00 | PROC ---
Endoscopy Procedure Endoscopy procedure completed. Please see scanned procedure report. Duodenitis and gastritis were found, biopsies taken. Resume previous diet. Follow biopsies as OP.
[2017-09-25] MEDS: PHENYLEPH/MINERAL OIL/PETROLAT 28 GM OINTMENT RC SCH (17:55)
[2017-09-25] MEDS: GABAPENTIN 100 MG CAPSULE (FP) PO SCH (21:09)
[2017-09-26] MEDS: VANCOMYCIN 250 MG/5 ML ORAL SOLUTION PO SCH ×4 (00:30→18:00)
[2017-09-26] MEDS: INSULIN SLIDING SCALE (NOVOLOG) 1 VIAL SQ SCH ×3 (06:21→17:53)
[2017-09-26] MEDS ORDERED: SODIUM CHLORIDE 250 ML IV PRN (07:11)
[2017-09-26 07:54] LABS: HEMATOCRIT 26.4 % (32.4-45.2); HEMOGLOBIN 8.7 GM/dL (10.7-15.3); MCH 30.4 pg (25.7-33.7); MCHC 33.2 g/dl (32.0-36.0); MEAN CELL VOLUME 91.8 fl (80-96); MEAN PLT VOLUME 9.8 fl (7.5-11.1); PLATELET COUNT 248 K/MM3 (134-434); RBC 2.87 M/mm3 (3.60-5.2); RDW 16.4 % (11.6-15.6); WHITE BLOOD COUNT 10.2 K/mm3 (4.0-10.0)
[2017-09-26] MEDS ORDERED: EPOETIN ALFA 3,000 UNIT, EPOETIN ALFA 2,000 UNIT IVPUSH ONE (08:00)
[2017-09-26 08:34] LABS: ANION GAP 14 (8-16); BLOOD UREA NITROGEN 83 mg/dL (7-18); CALCIUM 8.6 mg/dL (8.5-10.1); CHLORIDE 93 mmol/L (98-107); CO2 26 mmol/L (21-32); GLUCOSE,RANDOM 120 mg/dL (74-106); POTASSIUM 5.4 mmol/L (3.5-5.1); SODIUM 133 mmol/L (136-145)
[2017-09-26] MEDS: PHENYLEPH/MINERAL OIL/PETROLAT 28 GM OINTMENT RC SCH (11:37)
[2017-09-26] MEDS: CARVEDILOL 6.25 MG TABLET (FP) PO SCH (11:37)
[2017-09-26] MEDS: amLODIPine BESYLATE 5 MG TABLET (FP) PO SCH (11:37)
--- NOTE | 2017-09-26 12:53 | PN ---
Progress Note (short form) - Note Progress Note: [employer] worker phone used Subjective: The patient was seen and examined at the bedside, she has complaints of chest pain. EKG reviewed by Dr. Leigh, no evidence of any changes noted. Trop again negative Patient is also complaining about food, she does not like hospital food Current Medications Generic Name Dose Route Start Last Admin Trade Name Freq PRN Reason Stop Dose Admin Acetaminophen 650 mg 09/19/17 18:38 09/24/17 21:15 Tylenol - PO 650 mg Q6H PRN Administration PAIN LEVEL 1-5 Albuterol/Ipratropium 1 amp 09/19/17 21:55 Duoneb - NEB Q6H PRN SHORTNESS OF BREATH Amlodipine Besylate 5 mg 09/20/17 10:00 09/26/17 11:37 Norvasc - PO 5 mg DAILY [facility] Administration Carvedilol 6.25 mg 09/19/17 22:00 09/26/17 11:37 Coreg - PO 6.25 mg BID [facility] Administration Gabapentin 100 mg 09/23/17 22:00 09/25/17 21:09 Neurontin - PO 100 mg HS [facility] Administration Heparin Sodium (Porcine) 5,000 unit 09/19/17 22:00 09/24/17 05:16 Heparin - SQ Not Given TID [facility] Insulin Aspart 1 vial 09/19/17 22:00 09/26/17 11:37 Novolog Vial Sliding Scale - SQ Not Given ACHS [facility] Protocol Vancomycin HCl 125 mg 09/20/17 12:00 09/26/17 11:39 Vancomycin Oral Solution PO 125 mg Q6HPO [facility] Administration Witch Lupis/Glycerin 1 pad 09/21/17 12:37 09/21/17 23:23 Tucks Pads - TP 1 applic PRN PRN Administration HEMORRHOIDS Objective: Vital Signs Period Temp Pulse Resp BP Sys/Rodriguez Pulse Ox Last 24 Hr 97.7 F-98.7 F 68-106 18-20 122-218/67-113 90-96 Physical Exam: General: NAD, A&Ox3 Lungs: CTA bilaterally Heart: RRR, S1S2 Abd: Soft, non-tender. Hyperactive bowel sounds. + hernia Ext: Warm, well-perfused CBCD WBC 10.2 K/mm3 (4.0-10.0) H 09/26/17 07:00 RBC 2.87 M/mm3 (3.60-5.2) L 09/26/17 07:00 Hgb 8.7 GM/dL (10.7-15.3) L 09/26/17 07:00 Hct 26.4 % (32.4-45.2) L 09/26/17 07:00 MCV 91.8 fl (80-96) 09/26/17 07:00 MCHC 33.2 g/dl (32.0-36.0) 09/26/17 07:00 RDW 16.4 % (11.6-15.6) H 09/26/17 07:00 Plt Count 248 K/MM3 (134-434) 09/26/17 07:00 MPV 9.8 fl (7.5-11.1) 09/26/17 07:00 CMP Sodium 133 mmol/L (136-145) L 09/26/17 07:00 Potassium 5.4 mmol/L (3.5-5.1) H 09/26/17 07:00 Chloride 93 mmol/L (98-107) L 09/26/17 07:00 Carbon Dioxide 26 mmol/L (21-32) 09/26/17 07:00 Anion Gap 14 (8-16) 09/26/17 07:00 BUN 83 mg/dL (7-18) H D 09/26/17 07:00 Creatinine 7.0 mg/dL (0.55-1.02) H 09/26/17 07:00 Creat Clearance w eGFR 5.75 (>60) 09/26/17 07:00 Random Glucose 120 mg/dL (74-106) H 09/26/17 07:00 Calcium 8.6 mg/dL (8.5-10.1) 09/26/17 07:00 Total Bilirubin 0.2 mg/dL (0.2-1.0) 09/24/17 07:08 AST 24 U/L (15-37) 09/24/17 07:08 ALT 35 U/L (12-78) 09/24/17 07:08 Alkaline Phosphatase 161 U/L (45-117) H D 09/24/17 07:08 Total Protein 6.4 g/dl (6.4-8.2) 08/19/18 07:08 Albumin 3.1 g/dl (3.4-5.0) L 09/24/17 07:08 CARDIAC ENZYMES Creatine Kinase 47 IU/L (26-192) 09/26/17 09:00 Troponin I < 0.02 ng/ml (0.00-0.05) 09/26/17 09:00 Microbiology 09/19/17 20:00 Blood - Peripheral Venous Blood Culture - Final NO GROWTH AFTER 5 DAYS INCUBATION 09/19/17 20:00 Blood - Peripheral Venous Blood Culture - Final NO GROWTH AFTER 5 DAYS INCUBATION 09/19/17 18:45 Stool Salmonella/Shigella Culture - Final 09/19/17 18:45 Stool Campylobacter Culture - Final NO GROWTH OF CAMPYLOBACTER SPECIES OBTAINED 09/19/17 18:45 Stool Yersinia Culture - Final NO GROWTH OF YERSINIA SPECIES OBTAINED 09/19/17 18:45 Stool Vibrio Culture - Final NO GROWTH OF VIBRIO SPECIES OBTAINED 09/19/17 18:45 Stool Escherichia coli 0157 Culture - Final NO GROWTH OF E COLI 0157 OBTAINED 09/19/17 18:45 Stool Clostridium difficile Antigen (NAOMI) - Final 09/19/17 18:45 Stool Clostridium difficile Toxin Assay - Final Assessment: This is a 71 year old female with PMHx of ESRD (on HD T,,S), [place], quadruple bypass, DM, GERD, HTN, who presented to the ED with chest pain, diarrhea, fatigue, weakness. Plan: 1) Left sided facial/body numbness and tingling - Resolved - Neuro exam wnl - CT head with no acute changes - Appreciate neurology consult 2) Chest pain - Had chest pain today, workup negative - Trop again negative today - ECHO: normal LVEF. Left atrium is severe dilated. Atrial septum is aneurysmal without evidence of shunting. Moderate to severe MR. Mod TR. RVSP is elevated. Mild pulmonary HTN. Right atrium is mildly dilated - Patient had cardiac workup at [facility] - Appreciate cardiology consult: spoke to Dr. Leigh who states from cards perspective, patient can be discharged 3) Diarrhea - Resolved - C.diff Ag +, toxin - - Continue Vancomycin 125mg po q6h for total of 10 days, last day (09/29) 4) Large gallstones - As evidence on CT. Without gross pericholecystic free fluid - Patient non-tender on exam, however is reporting epigastric pain. No feeling of satiation - EGD yesterday with duogenitis and gastritis, f/u outpatient biopsy results - Appreciate GI consult 5) Large hernia - As evidence on CT. Fat-containing hernia, without herniating bowel loops seen - Can follow-up with surgeon as outpatient 6) ESRD - Tolerated HD today - Appreciate nephrology consult 8) F/E/N: - Monitor electrolytes - Renal/diabetic diet 9) Prophylaxis: - Heparin 5,000u sq tid - PT daily: walked 20 feet with PT yesterday 10) Dispo: - Requires continued inpatient care CODE STATUS: FULL CODE Visit type - Emergency Visit Emergency Visit: Yes ED Registration Date: 09/19/17 Care time: The patient presented to the Emergency Department on the above date and was hospitalized for further evaluation of their emergent condition. - New Patient This patient is new to me today: No - Critical Care Critical Care patient: No
--- NOTE | 2017-09-26 13:10 | EKG ---
Test Reason : Blood Pressure : / mmHG Vent. Rate : 085 BPM Atrial Rate : 085 BPM P-R Int : 190 ms QRS Dur : 098 ms QT Int : 444 ms P-R-T Axes : 020 042 070 degrees QTc Int : 528 ms SINUS RHYTHM WITH OCCASIONAL PREMATURE VENTRICULAR COMPLEXES NONSPECIFIC ST AND T WAVE ABNORMALITY PROLONGED QT ABNORMAL ECG Confirmed by Galdino Lorenz MD ([id number]) on 09/26/2017 1:10:25 PM Referred By: Larry MENDEZ Confirmed By:Galdino Lorenz MD
--- NOTE | 2017-09-26 13:59 | PN ---
Progress Note, Physician History of Present Illness: stable no issues - Current Medication List Current Medications: Active Medications Acetaminophen (Tylenol -) 650 mg PO Q6H PRN PRN Reason: PAIN LEVEL 1-5 Last Admin: 09/24/17 21:15 Dose: 650 mg Albuterol/Ipratropium (Duoneb -) 1 amp NEB Q6H PRN PRN Reason: SHORTNESS OF BREATH Amlodipine Besylate (Norvasc -) 5 mg PO DAILY [facility] Last Admin: 09/26/17 11:37 Dose: 5 mg Carvedilol (Coreg -) 6.25 mg PO BID [facility] Last Admin: 09/26/17 11:37 Dose: 6.25 mg Gabapentin (Neurontin -) 100 mg PO HS [facility] Last Admin: 09/25/17 21:09 Dose: 100 mg Heparin Sodium (Porcine) (Heparin -) 5,000 unit SQ TID [facility] Last Admin: 09/24/17 05:16 Dose: Not Given Insulin Aspart (Novolog Vial Sliding Scale -) 1 vial SQ [facility]; Protocol Last Admin: 09/26/17 11:37 Dose: Not Given Vancomycin HCl (Vancomycin Oral Solution) 125 mg PO Q6HPO [facility] Last Admin: 09/26/17 11:39 Dose: 125 mg Witch Lupis/Glycerin (Tucks Pads -) 1 pad TP PRN PRN PRN Reason: HEMORRHOIDS Last Admin: 09/21/17 23:23 Dose: 1 applic - Objective Vital Signs: Vital Signs Temperature 98 F 09/26/17 11:35 Pulse Rate 90 09/26/17 11:35 Respiratory Rate 20 09/26/17 11:35 Blood Pressure 177/79 09/26/17 11:35 O2 Sat by Pulse Oximetry (%) 96 09/26/17 09:00 Constitutional: Yes: No Distress, Calm Eyes: Yes: Conjunctiva Clear Cardiovascular: Yes: S1, S2 Respiratory: Yes: Regular, CTA Bilaterally Gastrointestinal: Yes: Normal Bowel Sounds, Soft Extremities: Yes: WNL Neurological: Yes: Alert, Oriented Psychiatric: Yes: Alert Labs: CBC, BMP 09/26/17 07:00 09/26/17 07:00 INR, PTT INR 0.89 (0.83-1.09) 09/19/17 07:56 Assessment/Plan Problem List - Problems (1) Diarrhea Code(s): R19.7 - DIARRHEA, UNSPECIFIED (2) Diastolic CHF Code(s): I50.30 - UNSPECIFIED DIASTOLIC (CONGESTIVE) HEART FAILURE (3) Hx of CABG Code(s): Z95.1 - PRESENCE OF AORTOCORONARY BYPASS GRAFT (4) ESRD (end stage renal disease) Code(s): N18.6 - END STAGE RENAL DISEASE (5) C. difficile colitis Code(s): A04.72 - ENTEROCOLITIS D/T CLOSTRIDIUM DIFFICILE, NOT SPCF RECUR (6) CAD (coronary artery disease) Code(s): I25.10 - ATHSCL HEART DISEASE OF [place] CORONARY ARTERY W/O ANG PCTRS Assessment/Plan 71 y.o. female with PMH of ESRD, CAD, CHF, C. difficile colitis presenting with shortness of breath/chest pain and loose BMs. -- all stool study results noted, no abd pain, afebrile -- C. diff Ag+ -- continue Vancomycin po x total 10 days
[2017-09-26] MEDS ORDERED: EPOETIN ALFA 2,000 UNIT/1 ML VIAL IVPUSH ONE (14:44)
--- NOTE | 2017-09-26 15:29 | EKG ---
Test Reason : Blood Pressure : / mmHG Vent. Rate : 093 BPM Atrial Rate : 093 BPM P-R Int : 192 ms QRS Dur : 090 ms QT Int : 352 ms P-R-T Axes : 018 040 190 degrees QTc Int : 437 ms NORMAL SINUS RHYTHM ABNORMAL ECG WHEN COMPARED WITH ECG OF 26-SEP-2017 09:50, PREMATURE VENTRICULAR COMPLEXES ARE NO LONGER PRESENT QT HAS SHORTENED Confirmed by Galdino Lorenz MD ([id number]) on 09/26/2017 3:29:20 PM Referred By: Larry PAGE Confirmed By:Galdino Lorenz MD
[2017-09-26 15:43] VITALS: BMI 36.8
--- NOTE | 2017-09-26 15:53 | PN ---
Progress Note, Physician History of Present Illness: Pt seen and examined at bedside. She is awake and alert. She denies abdominal pain or diarrhea. - Current Medication List Current Medications: Active Medications Acetaminophen (Tylenol -) 650 mg PO Q6H PRN PRN Reason: PAIN LEVEL 1-5 Last Admin: 09/24/17 21:15 Dose: 650 mg Albuterol/Ipratropium (Duoneb -) 1 amp NEB Q6H PRN PRN Reason: SHORTNESS OF BREATH Amlodipine Besylate (Norvasc -) 5 mg PO DAILY [facility] Last Admin: 09/26/17 11:37 Dose: 5 mg Carvedilol (Coreg -) 6.25 mg PO BID [facility] Last Admin: 09/26/17 11:37 Dose: 6.25 mg Gabapentin (Neurontin -) 100 mg PO HS [facility] Last Admin: 09/25/17 21:09 Dose: 100 mg Heparin Sodium (Porcine) (Heparin -) 5,000 unit SQ TID [facility] Last Admin: 09/24/17 05:16 Dose: Not Given Insulin Aspart (Novolog Vial Sliding Scale -) [address] [facility]; Protocol Last Admin: 09/26/17 11:37 Dose: Not Given Vancomycin HCl (Vancomycin Oral Solution) 125 mg PO Q6HPO [facility] Last Admin: 09/26/17 11:39 Dose: 125 mg Witch Lupis/Glycerin (Tucks Pads -) 1 pad TP PRN PRN PRN Reason: HEMORRHOIDS Last Admin: 09/21/17 23:23 Dose: 1 applic - Objective Vital Signs: Vital Signs Temperature 99.2 F 09/26/17 14:05 Pulse Rate 94 H 09/26/17 14:05 Respiratory Rate 18 09/26/17 14:05 Blood Pressure 140/103 09/26/17 14:05 O2 Sat by Pulse Oximetry (%) 96 09/26/17 09:00 Constitutional: Yes: Calm Eyes: Yes: Conjunctiva Clear HENT: Yes: Atraumatic Neck: Yes: Supple Cardiovascular: Yes: S1, S2 Respiratory: Yes: CTA Bilaterally Gastrointestinal: Yes: Normal Bowel Sounds, Soft Genitourinary: Yes: WNL Musculoskeletal: Yes: WNL Edema: No Neurological: Yes: Oriented Psychiatric: Yes: Oriented Labs: CBC, BMP 09/26/17 07:00 09/26/17 07:00 INR, PTT INR 0.89 (0.83-1.09) 09/19/17 07:56 Problem List - Problems (1) Diarrhea Code(s): R19.7 - DIARRHEA, UNSPECIFIED (2) ESRD (end stage renal disease) Code(s): N18.6 - END STAGE RENAL DISEASE Assessment/Plan Current Medications Generic Name Dose Route Start Last Admin Trade Name Freq PRN Reason Stop Dose Admin Acetaminophen 650 mg 09/19/17 18:38 09/24/17 21:15 Tylenol - PO 650 mg Q6H PRN Administration PAIN LEVEL 1-5 Albuterol/Ipratropium 1 amp 09/19/17 21:55 Duoneb - NEB Q6H PRN SHORTNESS OF BREATH Amlodipine Besylate 5 mg 09/20/17 10:00 09/26/17 11:37 Norvasc - PO 5 mg DAILY [facility] Administration Carvedilol 6.25 mg 09/19/17 22:00 09/26/17 11:37 Coreg - PO 6.25 mg BID [facility] Administration Gabapentin 100 mg 09/23/17 22:00 09/25/17 21:09 Neurontin - PO 100 mg HS [facility] Administration Heparin Sodium (Porcine) 5,000 unit 09/19/17 22:00 09/24/17 05:16 Heparin - SQ Not Given TID [facility] Insulin Aspart 1 vial 09/19/17 22:00 09/26/17 11:37 Novolog Vial Sliding Scale - SQ Not Given ACHS [facility] Protocol Vancomycin HCl 125 mg 09/20/17 12:00 09/26/17 11:39 Vancomycin Oral Solution PO 125 mg Q6HPO [facility] Administration Witch Lupis/Glycerin 1 pad 09/21/17 12:37 09/21/17 23:23 Tucks Pads - TP 1 applic PRN PRN Administration HEMORRHOIDS Impression 1. ESRD 2. diarrhea 3. CAD 4. HTN 5. DM 6. hyperkalemia 7. anemia Plan - HD today - GI workup in progress - renal diet - HD 3 hrs, 350 abf, 2 k bath, avg, heparin 1000 units - will follow Dr Mosquera
[2017-09-26 17:45] VITALS: BP 152/78; PULSE 92; TEMP 98.8
--- NOTE | 2017-09-26 17:57 | DS ---
Physical Examination Vital Signs: Vital Signs Temperature 98.8 F 09/26/17 17:43 Pulse Rate 92 H 09/26/17 17:43 Respiratory Rate 18 09/26/17 17:43 Blood Pressure 152/78 09/26/17 17:43 O2 Sat by Pulse Oximetry (%) 96 09/26/17 09:00 Findings/Remarks: Physical Exam: General: NAD, A&Ox3 Lungs: CTA bilaterally Heart: RRR, S1S2 Abd: Soft, non-tender. Hyperactive bowel sounds. + hernia Ext: Warm, well-perfused Labs: CBC, BMP 09/26/17 07:00 09/26/17 07:00 Discharge Summary Reason For Visit: DIARRHEA, ESRD Current Active Problems Abdominal discomfort (Acute) Atypical chest pain (Acute) Chronic generalized abdominal pain (Acute) Diarrhea (Acute) Diastolic CHF (Acute) Hx of CABG (Acute) ESRD (end stage renal disease) (Chronic) Hospital Course: This is a 71 year old female with PMHx of ESRD (on HD T,,S), [place], quadruple bypass, DM, GERD, HTN, who presented to the ED with chest pain, diarrhea, fatigue, weakness. Plan: 1) Left sided facial/body numbness and tingling - Resolved - Neuro exam wnl - CT head with no acute changes - Appreciate neurology consult 2) Chest pain - Had chest pain today, workup negative, resolved - Trop again negative today - ECHO: normal LVEF. Left atrium is severe dilated. Atrial septum is aneurysmal without evidence of shunting. Moderate to severe MR. Mod TR. RVSP is elevated. Mild pulmonary HTN. Right atrium is mildly dilated - Patient had cardiac workup at [facility] - Appreciate cardiology consult: spoke to Dr. Leigh who states from cards perspective, patient can be discharged 3) Diarrhea - Resolved - C.diff Ag +, toxin - - Continue Vancomycin 125mg po q6h for total of 10 days, last day (09/29) 4) Large gallstones - As evidence on CT. Without gross pericholecystic free fluid - Patient non-tender on exam, however is reporting epigastric pain. No feeling of satiation - EGD yesterday with duogenitis and gastritis, f/u outpatient biopsy results - Appreciate GI consult 5) Large hernia - As evidence on CT. Fat-containing hernia, without herniating bowel loops seen - Can follow-up with surgeon as outpatient 6) ESRD - Tolerated HD today - Appreciate nephrology consult EKG this morning with qtc 528, repeat with qtc [address] Mosquera, patient is cleared for discharge Condition: Improved - Instructions Diet, Activity, Other Instructions: Please return to the ED with new, persistent, or worsening symptoms. Please follow-up with your providers as indicated. Please stop taking your Aspirin until you are reevaluated by Dr. Bell in 3-5 days. Referrals: Bear Love MD [Staff Physician] - 1 Week Talib Bell MD [Staff Physician] - (Please follow-up with Dr. Bell ( gastrointestinal doctor) within 3-5 days for your endoscopy biopsy results) Russell Grace MD [Staff Physician] - 1 Week Jimi Walton MD [Staff Physician] - 1 Week Disposition: HOME - Home Medications Comprehensive Discharge Medication List: Ambulatory Orders Carvedilol 6.25 mg PO BID 09/20/16 Gabapentin 100 mg PO HS 09/20/16 Isoniazid 300 mg PO DAILY 09/20/16 Pyridoxine HCl [Vitamin B-6] 100 mg PO DAILY 09/20/16 Walker [Ultra-Light Rollator] 1 each MC DAILY #1 each 09/23/16 Acetaminophen [Tylenol .Regular Strength -] 650 mg PO Q6H PRN tablet 09/26/17 Albuterol 2.5/Ipratropium 0.5 [Duoneb -] 1 amp NEB Q6H PRN #120 amp 09/26/17 Amlodipine Besylate [Norvasc -] 10 mg PO DAILY #30 tablet 09/26/17 Nebulizer [Aeroeclipse II] 1 each MC PRN PRN #1 each 09/26/17 Pantoprazole Sodium [Protonix] 40 mg PO DAILY #30 tablet. 09/26/17 Phenyleph/Mineral Oil/Petrolat [Preparation H Ointment] 1 applic RC DAILY oint 09/26/17 Vancomycin Oral Solution 125 mg PO Q6HPO #40 ml 09/26/17 Witch Lupis 50% (Tucks) [Tucks Pads -] 1 pad TP PRN PRN #30 pad 09/26/17 This patient is new to me today: No Emergency Visit: Yes ED Registration Date: 09/19/17 Care time: The patient presented to the Emergency Department on the above date and was hospitalized for further evaluation of their emergent condition. Critical Care patient: No - Discharge Referral Referred to [facility] Med P.C.: No
[2017-09-26] MEDS ORDERED: amLODIPine BESYLATE 5 MG TABLET (FP) PO ONE (18:00)
--- NOTE | 2017-09-27 14:04 | PATH ---
Surgical Pathology Report Patient Name: [facility]. Rec. #: [id number] /Age/Gender: 1945 (Age: 71) / F Account: [id number] Location: [facility] Taken: 09/25/2017 Received: 09/26/2017 Reported: 09/27/2017 Physicians: Talib Bell M.D. PHYSICIAN EMERGENCY DEPT Specimen(s) Received A: JEJUNUM SMALL BOWEL, BIOPSY B: BX ANTRUM Clinical History Epigastric pain Postoperative diagnosis: Gastritis, jejunitis, duodenitis Final Diagnosis A. JEJUNUM, BIOPSY: SMALL BOWEL MUCOSA WITH FOCAL MILD ACUTE AND CHRONIC JEJUNITIS. B. STOMACH, ANTRUM AND BODY, BIOPSY: GASTRIC ANTRAL AND BODY MUCOSA WITH MILD CHRONIC GASTRITIS. IMMUNOHISTOCHEMICAL STAIN FOR H. PYLORI IS NEGATIVE. Electronically Signed Katy Raphael M.D. Gross Description A. Received in formalin, labeled "biopsy jejunum" is a loaiza, irregular portion of soft tissue measuring 0.4 cm. in greatest dimension. The specimen is submitted in toto in one cassette. B. Received in formalin, labeled "biopsy antrum and body" are 2 loaiza, irregular portions of soft tissue measuring 0.3 and 0.4 cm. in greatest dimension. The specimens are submitted in toto in one cassette. 09/26/2017 [facility]09/26/2017
--- NOTE | 2017-10-02 10:26 | EKG ---
Test Reason : Blood Pressure : / mmHG Vent. Rate : 070 BPM Atrial Rate : 070 BPM P-R Int : 224 ms QRS Dur : 102 ms QT Int : 426 ms P-R-T Axes : 017 003 056 degrees QTc Int : 460 ms SINUS RHYTHM WITH 1ST DEGREE A-V BLOCK MINIMAL VOLTAGE CRITERIA FOR LVH, MAY BE NORMAL VARIANT BORDERLINE ECG WHEN COMPARED WITH ECG OF 10-SEP-2017 19:28, T WAVE INVERSION NO LONGER EVIDENT IN LATERAL LEADS Confirmed by MICHELLE HEATH MD ([id number]) on 10/02/2017 10:25:37 AM Referred By: Confirmed By:MICHELLE HEATH MD
== END 2017-09-26 18:40 | disposition home or self-care (01) | DRG 241 ==
LOC: JER 07:06 → JERBED 10:36 → J4S 16:09
PROVIDERS: ADMIT Hospitalist; ATTEND Registered Nurse
PROC: 5A1D70Z Performance of Urinary Filtration, Intermittent, Less than 6 Hours Per Day (ICD-10-PCS; 2017-09-19)
PROC: 5A1D70Z Performance of Urinary Filtration, Intermittent, Less than 6 Hours Per Day (ICD-10-PCS; 2017-09-21)
PROC: 5A1D70Z Performance of Urinary Filtration, Intermittent, Less than 6 Hours Per Day (ICD-10-PCS; 2017-09-23)
PROC: 0DD68ZX Extraction of Stomach, Via Natural or Artificial Opening Endoscopic, Diagnostic (ICD-10-PCS; 2017-09-25)
PROC: 0DD98ZX Extraction of Duodenum, Via Natural or Artificial Opening Endoscopic, Diagnostic (ICD-10-PCS; principal; 2017-09-25 14:30)
PROC: 5A1D70Z Performance of Urinary Filtration, Intermittent, Less than 6 Hours Per Day (ICD-10-PCS; 2017-09-26)
DX: K29.70 Gastritis, unspecified, without bleeding (principal); R07.89 Other chest pain; R19.7 Diarrhea, unspecified; E87.5 Hyperkalemia; I44.0 Atrioventricular block, first degree; K80.80 Other cholelithiasis without obstruction; N28.1 Cyst of kidney, acquired; N26.1 Atrophy of kidney (terminal); I25.10 Atherosclerotic heart disease of native coronary artery without angina pectoris; I13.2 Hypertensive heart and chronic kidney disease with heart failure and with stage 5 chronic kidney disease, or end stage renal disease; E11.22 Type 2 diabetes mellitus with diabetic chronic kidney disease; I50.32 Chronic diastolic (congestive) heart failure; D64.9 Anemia, unspecified; R20.2 Paresthesia of skin; N18.6 End stage renal disease; M54.5 Low back pain; F41.9 Anxiety disorder, unspecified; I51.7 Cardiomegaly; K43.9 Ventral hernia without obstruction or gangrene; K46.9 Unspecified abdominal hernia without obstruction or gangrene; E66.9 Obesity, unspecified; I25.2 Old myocardial infarction; K29.80 Duodenitis without bleeding; R10.84 Generalized abdominal pain; G89.29 Other chronic pain; R10.13 Epigastric pain; I08.1 Rheumatic disorders of both mitral and tricuspid valves; I27.20 Pulmonary hypertension, unspecified; Z95.1 Presence of aortocoronary bypass graft; Z68.36 Body mass index [BMI] 36.0-36.9, adult; Z78.0 Asymptomatic menopausal state; Z99.2 Dependence on renal dialysis
CPT/HCPCS: 36415; 70450-TC; 71046-TC-FY; 74176-TC; 76705-TC; 80048; 80053; 80061; 82550; 82962; 83036; 83721; 83735; 84484; 85025; 85027; 85610; 85730; 86704; 86706; 86708; 86803; 87040; 87045; 87046; 87186; 87324; 87340; 87449; 88305-TC; 93005; 93010; 93306-TC; 97116-GP; 97161-GP; 99285-25; J0885; J1644

== ENCOUNTER 2017-09-27 11:28 | Observation (INO) | payer OTHER ==
[2017-09-27 11:45] VITALS: BMI 31.6
--- NOTE | 2017-09-27 11:52 | PDOC ---
History of Present Illness - General Chief Complaint: Shortness of Breath Stated Complaint: Shortness of Breath Time Seen by Provider: 09/27/17 11:39 History Source: Patient - History of Present Illness Initial Comments: 09/27/17 11:54 The patient is a 71 year old female with a PMH of ESRD on HD (TTS), HTN, HLD, CAD s/p CABG (13years ago), DM, SBO (s/p resection) presents to our ED c/o shortness of breath. Patient states she has been short of breath since her CABG 13 years previous, however it became particularly bad over the last 2-3 days prompting her visit to the ED today. Endorse HELM as well as chest pain upon exertion. Denies leg swelling Last HD yesterday and was a full session. Notes remote evaluation both by a tip out worker and metal mine inspector on prior occassion but cannot recall their names. Patient denies abdominal pain, diarrhea/constipation, dysuria/hematuria, sick contacts or recent travel. NKDA Surgical: CABG, small bowel resection Social: denies toxic habits PMD: None - will refer to IM resident clinic As per EMR patient was evaluated in 02/2107 for similar complaints at which time she was admitted for dyspnea likely 2/2 to fluid overload. Past History - Past Medical History Allergies/Adverse Reactions: Allergies Allergy/AdvReac Type Severity Reaction Status Date / Time No Known Allergies Allergy Verified 02/16/17 05:43 Home Medications: Ambulatory Orders Amlodipine Besylate [Norvasc -] 5 mg PO DAILY 02/16/17 Aspirin [ASA -] 81 mg PO DAILY 02/16/17 Carvedilol [Coreg -] 6.25 mg PO BID 02/16/17 Atorvastatin Ca [Lipitor] 40 mg PO HS #30 tablet 02/17/17 Cardiac Disorders: Yes (CAD, CABG) CVA: Yes (CVA) COPD: No Diabetes: Yes Dialysis: Yes (tues, thurs, sat) GI Disorders: Yes (HERNIA, small bowel resection) Disorders: Yes (ESRD) HTN: Yes Hypercholesterolemia: Yes - Surgical History Cardiac Surgery: Yes (BYPASS) - Suicide/Smoking/Psychosocial Hx Smoking History: Never smoked Have you smoked in the past 12 months: No Information on smoking cessation initiated: No Hx Alcohol Use: No Drug/Substance Use Hx: No Substance Use Type: None Hx Substance Use Treatment: No Review of Systems - Review of Systems Constitutional: No: Chills, Fever HEENTM: No: Blurred Vision, Double Vision Respiratory: Yes: SOB with Exertion. No: Cough, Productive cough Cardiac (ROS): Yes: Chest Pain. No: Lightheadedness, Palpitations, Syncope ABD/GI: Yes: Nausea. No: Constipated, Diarrhea, Vomiting : No: Burning, Dysuria *Physical Exam - Vital Signs Last Vital Signs Temp Pulse Resp BP Pulse Ox 98.6 F 85 20 127/67 97 09/27/17 11:42 09/27/17 11:42 09/27/17 11:42 09/27/17 11:42 09/27/17 11:42 - Physical Exam General Appearance: Yes: Nourished, Appropriately Dressed HEENT: positive: Normal Voice, Hearing Grossly Normal Neck: positive: Trachea midline, Supple Respiratory/Chest: positive: Decreased Breath Sounds. negative: Respiratory Distress, Accessory Muscle Use, Crackles, Rales, Rhonchi, Stridor, Wheezing Cardiovascular: positive: S1, S2, Edema (B/L LE edema from ankles to mid thigh; non-pitting). negative: JVD Gastrointestinal/Abdominal: positive: Normal Bowel Sounds, Soft, Hernia (L sided reducible ventral hernia; RLQ ecchymosis) Musculoskeletal: negative: CVA Tenderness (R), CVA Tenderness (L) Extremity: positive: Normal Capillary Refill, Normal Inspection Integumentary: positive: Normal Color, Dry, Warm Neurologic: positive: Fully Oriented, Alert ED Treatment Course - LABORATORY CBC & Chemistry Diagram: 09/27/17 12:55 09/27/17 12:55 Medical Decision Making - Medical Decision Making 09/27/17 12:00 71 year old female with dyspnea. VS unremarkable. Mildly fluid overloaded, decreased breath sounds on PE. Frontal diagnosis includes: Fluid overload possibly 2/2 sub optimal HD, CHF, arrythymia, valvular dysfunction, less likely ACS. Will obtain CBC, CMP, BNP, Troponin, ECG. Oxygen NC and cardiac monitoring. Reassess. ECG shows NSR HR 76, normal axis, normal intervals, no DONALD/STD/TWI -non ischemic ECG 09/27/17 13:50 Hb 8.1 (previous Hb 10) - possible etiology of dyspnea; CMP pending CXR shows cardiomegaly, sclerotic knob c/w previous CXR 09/27/17 14:11 Cr 5.3, BUN 65 09/27/17 14:33 Troponin 0.50 - will trend, suspect demand ischemia in light of heart failure myocardial demand > ACS. Heart Score 6 Dr. Tran paged for admission; Cardiology consult (Gerda) pending 09/27/17 14:46 Dr. Tran accepted patient for admission. Repeat Troponin @ 1530 09/27/17 15:07 Case d/w Dr. Tyler - in light of patient's elevated Troponin, must be on monitored bed for HD. Will UF once patient transferred to telemetry. *DC/Admit/Observation/Transfer Diagnosis at time of Disposition: SOB (shortness of breath) - Referrals - Patient Instructions - Post Discharge Activity
--- NOTE | 2017-09-27 12:01 | PDOC ---
Attending Attestation - Resident Resident Name: Elaina Peralta - ED Attending Attestation I have performed the following: I have examined & evaluated the patient, The case was reviewed & discussed with the resident, I agree w/resident's findings & plan, Exceptions are as noted - HPI HPI: 09/27/17 12:19 71-year-old female history of ESRD (T,Th,Sa, last dialysis yesterday), HTN, DM, presents with malaise as well as dyspnea on exertion. Patient states that she has felt very fatigued today she also has been having some shortness of breath and dyspnea exertion but this is chronic for patient. denies any chest pain, cough, fevers, abd pain, n/v, diarrhea. on exam: GENERAL: The patient is awake, alert, and fully oriented, Nontoxic - in no acute distress. HEAD: Normocephalic, atraumatic. EYES: extraocular movements intact, sclera anicteric, conjunctiva clear. ENT: Normal voice, Moist mucous membranes. NECK: Normal range of motion, supple LUNGS: Breath sounds equal, clear to auscultation bilaterally. No wheezes, no rhonchi, no rales. HEART: Regular rate and rhythm, normal S1 and S2 without murmur, rub or gallop. ABDOMEN: Soft, nontender, No guarding, no rebound. No CVA tenderness EXTREMITIES: Normal range of motion, trace edema. NEUROLOGICAL: No facial assymetry, Normal speech, PSYCH: Normal mood, normal affect. SKIN: Warm, Dry, normal turgor,. ddx: acs, metabolic dernagement, pna will ck labs, cxr, ekg will reassesss - Physicial Exam PE: 09/27/17 15:35 see above - Medical Decision Making 09/27/17 15:34 The patient's labs were reviewed The patient's hemoglobin noted to be 8, her troponin is also borderline at 0.5 Will obs for further management for her shortness of breath Heart Score/ECG Review - ECG Impressions Comment:: 09/27/17 15:35 Twelve-lead EKG was performed and reviewed by me. There is normal sinus rhythm with a normal rate. Rate of 76 NonSpecific S T wave abnormality
[2017-09-27 13:08] LABS: BASO % 1.7 % (0-2.0); EOS % 1.7 % (0-4.5); HEMATOCRIT 24.4 % (32.4-45.2); HEMOGLOBIN 8.1 GM/dL (10.7-15.3); LYMPH % 15.6 % (8-40); MCH 30.6 pg (25.7-33.7); MCHC 33.1 g/dl (32.0-36.0); MEAN CELL VOLUME 92.4 fl (80-96); MEAN PLT VOLUME 9.7 fl (7.5-11.1); MONO % 7.2 % (3.8-10.2); NEUT % 73.8 % (42.8-82.8); PLATELET COUNT 232 K/MM3 (134-434); RBC 2.64 M/mm3 (3.60-5.2); RDW 16.4 % (11.6-15.6); WHITE BLOOD COUNT 7.8 K/mm3 (4.0-10.0)
[2017-09-27 13:37] LABS: ALBUMIN 2.8 g/dl (3.4-5.0); ANION GAP 10 MMOL/L (8-16); BILIRUBIN,TOTAL 0.3 mg/dL (0.2-1.0); BLOOD UREA NITROGEN 65 mg/dL (7-18); CALCIUM 8.8 mg/dL (8.5-10.1); CHLORIDE 97 mmol/L (98-107); CO2 32 mmol/L (21-32); CREATININE 5.3 mg/dL (0.55-1.02); GLUCOSE,RANDOM 89 mg/dL (74-106); POTASSIUM 4.8 mmol/L (3.5-5.1); SGOT/AST 26 U/L (15-37); SGPT/ALT 31 U/L (12-78); SODIUM 139 mmol/L (136-145); TOT PROT 5.8 g/dl (6.4-8.2)
[2017-09-27 13:51] LABS: ALK PHOS 146 U/L (45-117)
[2017-09-27 14:33] LABS: N-TERMINAL BNP 232298.11 pg/ml (5-125)
[2017-09-27 15:01] LABS: ARTERIAL BLD GAS O2 SATURATION 92.8 % (90-98.9); ARTERIAL BLOOD GAS BASE EXCESS 6.3 meq/l (-2-2); ARTERIAL BLOOD GAS PCO2 43.1 mmHg (35-45); ARTERIAL BLOOD GAS PO2 62.9 mmHg (70-100); ARTERIAL BLOOD GAS pH 7.46 (7.35-7.45)
[2017-09-27 15:06] LABS: ALLENS TEST POSITIVE
--- NOTE | 2017-09-27 15:54 | CON.CARD ---
Consult Consult Specialty:: Cardiology Referred by:: ER/Dr. Tran Reason for Consultation:: SOB, CHF, Chest tightness - History of Present Illness Chief Complaint: SOB History of Present Illness: 71 year old woman with pmh HTN, HLD, DMII, ESRD on HD, CAD s/p CABG 2004 [facility], pt reported cardiac cath within the past 1 year that showed no new obstructive CAD, SBO s/p resection, multiple recent ER presentations and admission for SOB and fluid overload now admitted with SOB. Pt seen and examined in the ER in nad. Son at bedside. Pt states that she was in the ER yesterday with sob and was sent home but became more sob and swollen thus came back to the ER. Denies any chest pain, has occasional palpitations. no pnd, orthopnea. no lightheadedness dizziness syncope or near syncope. Follows with medical clinic at [facility] and unsure if sees a critical care nurse specialist there. 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 Cardio/Vascular: Yes: CAD, HTN Renal/: Yes: Renal Failure, Hemodialysis Endocrine: Yes: Diabetes Mellitus - Past Surgical History Past Surgical History: Yes: CABG - Alcohol/Substance Use Hx Alcohol Use: No - Smoking History Smoking history: Never smoked Have you smoked in the past 12 months: No - Social History ADL: Independent History of Recent Travel: No Home Medications - Allergies Allergies/Adverse Reactions: Allergies Allergy/AdvReac Type Severity Reaction Status Date / Time No Known Allergies Allergy Verified 02/16/17 05:43 - Home Medications Home Medications: Ambulatory Orders Amlodipine Besylate [Norvasc -] 5 mg PO DAILY 02/16/17 Aspirin [ASA -] 81 mg PO DAILY 02/16/17 Carvedilol [Coreg -] 6.25 mg PO BID 02/16/17 Atorvastatin Ca [Lipitor] 40 mg PO HS #30 tablet 02/17/17 Family Disease History - Family Disease History Family History: Denies Review of Systems - Review of Systems Constitutional: denies: No Symptoms, Chills, Diaphoresis, Fever, Lethargy, Loss of Appetite, Malaise, Night Sweats, Unintentional Wgt. Loss, Weakness, Other Eyes: denies: No Symptoms, Blind Spots, Blurred Vision, Double Vision, Eye Pain , Floaters, Photophobia, Recent Change in Vision, Other HENT: denies: No Symptoms, Difficult Swallowing, Ear Discharge, Ear Pain, Epistaxis, Gingival Bleeding, Hearing Loss, Mouth Swelling, Nasal Congestion, Ocular Prosthesis, Throat Pain, Toothache, Ringing in Ears, Other Neck: denies: No Symptoms, Decreased ROM, Lumps, Pain on Movement, Stiffness, Swollen Glands, Tenderness, Other Cardiovascular: reports: Edema, Palpitations, Shortness of Breath. denies: Chest Pain, Other Respiratory: reports: Exercise Intolerance, SOB, SOB on Exertion. denies: No Symptoms, Cough, Hemoptysis, Orthopnea, PND, Snoring, Wheezing, Other Gastrointestinal: denies: No Symptoms, Abdominal Pain, Bloating, Constipation, Diarrhea, Dysphagia, Indigestion, Melena, Nausea, Rectal Bleeding, Vomiting, Vomiting Blood, Other Genitourinary: denies: No Symptoms, Burning, Discharge, Dysuria, Flank Pain, Frequency, Hematuria, Incontinence, Lesions, Menses, Pain, Testicular Mass, Testicular Pain, Testicular Swelling, Urgency, Vaginal Bleeding, Other Breasts: denies: No Symptoms Reported, See HPI, Breast Implants, Discharge from Nipple, Lumps, Pain, Skin Changes, Other Musculoskeletal: denies: No Symptoms, Back Pain, Crepitus, Decreased ROM, Extremity Pain, Joint Pain, Joint Swelling, Muscle Pain, Muscle Cramps, Muscle Weakness, Other Integumentary: denies: No Symptoms, Blister, Bruising, Change in Color, Eczema, Erythema, Incision, Lesions, Lump, Pallor, Pruritis, Rash, Wound, Other Neurological: denies: No Symptoms, Change in LOC, Change in Speech, Confusion, Dizziness, Headache, Incoordination, Numbness, Parasthesia, Pre-Existing Deficit , Seizure, Syncope, Tremors, Unsteady Gait, Weakness, Other Endocrine: denies: No Symptoms, Excessive Sweating, Flushing, Increased Hunger, Increased Thirst, Intolerance to Cold, Intolerance to Heat, Unexplained Weight Gain, Unexplained Weight Loss, Other Hematology/Lymphatic: denies: No Symptoms, Easily Bruised, Excessive Bleeding, Swollen Glands, Other Psychiatric: denies: No Symptoms, Altered Sleep Pattern, Anxiety, Depression, Hallucinations, Panic, Paranoia, Suicidal, Other - Risk Factors Known Risk Factors: Yes: Diabetes Mellitus, Hypercholesterolemia, Hypertension Vital Signs: Vital Signs Temperature 98.6 F 09/27/17 11:42 Pulse Rate 85 09/27/17 11:42 Respiratory Rate 20 09/27/17 11:42 Blood Pressure 127/67 09/27/17 11:42 O2 Sat by Pulse Oximetry (%) 97 09/27/17 11:42 Constitutional: Yes: No Distress, Calm, Obese Eyes: Yes: Conjunctiva Clear, EOM Intact, PERRL HENT: Yes: Atraumatic, Normocephalic Neck: Yes: Supple, Trachea Midline Respiratory: Yes: Christiano-Rodriguez, Diminished, Rales, SOB. No: Rhonchi, Wheezes Gastrointestinal: Yes: Normal Bowel Sounds, Soft. No: Distention, Tenderness Cardiovascular: Yes: Regular Rate and Rhythm. No: Bradycardia, Tachycardia, Pulse Irregular, Gallop, Rub, Varicosities JVD: No Carotid Bruit: No PMI: Non-Displaced Heart Sounds: Yes: S1, S2. No: Split S2, S3, S4, Clicks, Gallop, Rub, Bruit Murmur: No: Systolic Murmur, Diastolic Murmur Extremities: Yes: WNL Edema: Yes Edema: LLE: Trace, RLE: Trace Peripheral Pulses WNL: Yes Peripheral Pulses: 2+ Left Doralis Pedis, 2+ Right Dorsalis Pedis Neurological: Yes: Alert, Oriented Psychiatric: Yes: Alert, Oriented - Other Data Labs, Other Data: CBC, BMP 09/27/17 12:55 09/27/17 12:55 Troponin, BNP 09/27/17 12:55 Troponin I 0.50 H B-Natriuretic Peptide 728019.11 H Troponin, BNP 09/27/17 12:55 Troponin I 0.50 H B-Natriuretic Peptide 792286.11 H ekg nsr, possible inferior infarct, nonspecific St abnl Echo: Report Reviewed Imaging - Results Chest X-ray: Report Reviewed, Image Reviewed EKG: Report Reviewed, Image Reviewed Other: Report Reviewed, Image Reviewed Assessment/Plan 71 year old woman with pmh HTN, HLD, DMII, ESRD on HD, CAD s/p CABG 2004 [facility], pt reported cardiac cath within the past 1 year that showed no new obstructive CAD, SBO s/p resection, multiple recent ER presentations and admission for SOB and fluid overload now admitted with SOB. P Pt states that she was in the ER yesterday with sob and was sent home but became more sob and swollen thus came back to the ER. SOB-exam and imaging c/w pulmonary vascular congestion and peripheral edema, h/ o CAD CABG -Acute on likely chronic diastolic CHF -Volume removal with HD as per renal -pt states she does make urine, would consider starting Lasix if ok with renal -does not appear to be ACS, minimal Trop elevation with normal CK level and no ischemia on ekg and no reported chest pain -elevated troponin likely due to CHF and ESRD -trend serial cardiac enzymes and ekgs -echo 02/2017 showed normal LV and RV size and function and no significant valvular abnl -pt reports cardiac cath within this year at [facility] that showed no sig new obstructive CAD and no PCI was performed -would be helpful to have cardiac cath report for review -cont home CAD meds for now -can monitor on tele x 24 hours and if no events and cardiac enzymes not trending up can likely dc tele tomorrow
--- NOTE | 2017-09-27 17:08 | HP ---
Admitting History and Physical - Primary Care Physician PCP: Ashwini Tran - Admission History of Present Illness: 71 year old female with a PMH of ESRD on HD (TTS), HTN, HLD, CAD s/p CABG ( 13years ago), DM, SBO (s/p resection) presents to our ED c/o shortness of breath. Patient states she has been short of breath since her CABG 13 years previous, however it became particularly bad over the last 2-3 days prompting her visit to the ED today. Endorse HELM as well as chest pain upon exertion. Denies leg swelling Last HD yesterday and was a full session. Notes remote evaluation both by a bridal sales consultant and brush painter on prior occassion but cannot recall their names. 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 Cardiovascular: Yes: CAD, HTN, Hyperlipdemia Renal/: Yes: Renal Failure, Hemodialysis Endocrine: Yes: Diabetes Mellitus - Past Surgical History Past Surgical History: Yes: CABG - Smoking History Smoking history: Never smoked Have you smoked in the past 12 months: No - Alcohol/Substance Use Hx Alcohol Use: No - Social History ADL: Independent History of Recent Travel: No Home Medications - Allergies Allergies/Adverse Reactions: Allergies Allergy/AdvReac Type Severity Reaction Status Date / Time No Known Allergies Allergy Verified 02/16/17 05:43 - Home Medications Home Medications: Ambulatory Orders Acetaminophen [Tylenol] 650 mg PO Q6H PRN 09/27/17 Albuterol 2.5/Ipratropium 0.5 [Duoneb -] 1 neb NEB Q6H PRN 09/27/17 Amlodipine Besylate [Norvasc -] 10 mg PO DAILY 09/27/17 Carvedilol [Coreg] 6.25 mg PO BID 09/27/17 Gabapentin [Neurontin -] 100 mg PO HS 09/27/17 Isoniazid 300 mg PO DAILY 09/27/17 Pantoprazole Sodium [Protonix] 40 mg PO DAILY 09/27/17 Phenyleph/Mineral Oil/Petrolat [Preparation H Ointment] 1 applic RC DAILY Pyridoxine HCl (Vitamin B6) [Vitamin B-6] 100 mg PO DAILY 09/27/17 Vancomycin Oral Solution [Vancocin *Oral Solution*] 125 mg PO Q6H 08/22/18 Witch Lupis 50% (Tucks) [Tucks Witch Lupis Pads] 1 pad TP BID PRN 09/27/17 Physical Examination Vital Signs: Vital Signs Temperature 98.9 F 09/27/17 16:31 Pulse Rate 80 09/27/17 16:31 Respiratory Rate 17 09/27/17 16:31 Blood Pressure 127/67 09/27/17 11:42 O2 Sat by Pulse Oximetry (%) 98 09/27/17 16:31 Constitutional: Yes: Anxious HENT: Yes: Atraumatic Neck: Yes: Supple Cardiovascular: Yes: Regular Rate and Rhythm Respiratory: Yes: Rhonchi Gastrointestinal: Yes: Normal Bowel Sounds Extremities: Yes: WNL Edema: LLE: Trace, RLE: Trace Neurological: Yes: Alert, Oriented Labs: CBC, BMP 09/27/17 12:55 09/27/17 12:55 Problem List - Problems (1) ESRD (end stage renal disease) Code(s): N18.6 - END STAGE RENAL DISEASE (2) HTN (hypertension) Code(s): I10 - ESSENTIAL (PRIMARY) HYPERTENSION (3) HLD (hyperlipidemia) Code(s): E78.5 - HYPERLIPIDEMIA, UNSPECIFIED (4) SOB (shortness of breath) Code(s): R06.02 - SHORTNESS OF BREATH Assessment/Plan Laboratory Tests 09/27/17 09/27/17 09/27/17 12:55 12:55 14:53 WBC 7.8 RBC 2.64 L Hgb 8.1 L Hct 24.4 L D MCV 92.4 MCH 30.6 D MCHC 33.1 RDW 16.4 H Plt Count 232 MPV 9.7 Absolute Neuts (auto) 5.7 Neutrophils % 73.8 Lymphocytes % 15.6 Monocytes % 7.2 D Eosinophils % 1.7 Basophils % 1.7 Nucleated RBC % 0 Puncture Site Left radial ABG pH 7.46 H ABG pCO2 at Pt Temp 43.1 ABG pO2 at Pt Temp 62.9 L ABG HCO3 30.2 H ABG O2 Sat (Measured) 92.8 ABG O2 Content 8.1 L* ABG Base Excess 6.3 H Francisco Test Positive Carboxyhemoglobin Methemoglobin O2 Delivery Device Room air Oxygen Flow Rate N0 Sodium 139 Potassium 4.8 Chloride 97 L Carbon Dioxide 32 Anion Gap 10 BUN 65 H Creatinine 5.3 H Creat Clearance w eGFR 7.93 Random Glucose 89 Calcium 8.8 Total Bilirubin 0.3 AST 26 ALT 31 Alkaline Phosphatase 146 H Creatine Kinase 59 Troponin I 0.50 H B-Natriuretic Peptide 604586.11 H Total Protein 5.8 L Albumin 2.8 L 09/27/17 14:54 WBC RBC Hgb Hct MCV MCH MCHC RDW Plt Count MPV Absolute Neuts (auto) Neutrophils % Lymphocytes % Monocytes % Eosinophils % Basophils % Nucleated RBC % Puncture Site ABG pH ABG pCO2 at Pt Temp ABG pO2 at Pt Temp ABG HCO3 ABG O2 Sat (Measured) ABG O2 Content ABG Base Excess Francisco Test Carboxyhemoglobin 2.0 Methemoglobin 1.1 O2 Delivery Device Oxygen Flow Rate Sodium Potassium Chloride Carbon Dioxide Anion Gap BUN Creatinine Creat Clearance w eGFR Random Glucose Calcium Total Bilirubin AST ALT Alkaline Phosphatase Creatine Kinase Troponin I B-Natriuretic Peptide Total Protein Albumin Active Medications Generic Name Dose Route Start Last Admin Trade Name Freq PRN Reason Stop Dose Admin Sodium Chloride 250 mls @ 3,000 mls/hr 09/27/17 17:24 Normal Saline - IV 09/28/17 17:24 PRN PRN Hypotension during Dialysis
--- NOTE | 2017-09-27 17:41 | CONSULT ---
Consult - text type - Consultation Consultation Note: Renal Consult for ESRD on HD This is a 71 year old woman with Hx of ESRD on HD, CAD s/p CABG, Hypertension, DM who presents with complaints of SOB. Pt s/p 5 days hospitalization at [facility] [place] and was discharged yesterday. Received dialysis as an inpatient yesterday. +Orthopnea and PND. No CP, Abd pain, fever, chills. PMhx: as above Allergies: NKDA Family Hx: NC Social hx: No T/A/D ROS: as per HPI Home Medications Medication Instructions Recorded Amlodipine Besylate [Norvasc -] 5 mg PO DAILY 02/16/17 Aspirin [ASA -] 81 mg PO DAILY 02/16/17 Carvedilol [Coreg -] 6.25 mg PO BID 02/16/17 Atorvastatin Ca [Lipitor] 40 mg PO HS #30 tablet 02/17/17 Vital Signs Temperature 98.9 F 09/27/17 16:54 Pulse Rate 83 09/27/17 16:54 Respiratory Rate 19 09/27/17 16:54 Blood Pressure 169/75 09/27/17 16:54 O2 Sat by Pulse Oximetry (%) 95 09/27/17 16:54 Intake & Output 09/24/17 09/25/17 09/26/17 09/27/17 23:59 23:59 23:59 23:59 Weight 71 kg Mild distress from SOB MMM, No JVD RRR, No M/R Dec BS at b/l lung bases soft NT/ND No LE edmea, clubbing or cyanosis CBC, BMP 09/27/17 12:55 09/27/17 12:55 Current Medications Sodium Chloride (Normal Saline -) 250 mls @ 3,000 mls/hr IV PRN PRN PRN Reason: Hypotension during Dialysis Stop: 09/28/17 17:24 71 year old woman with Hx of ESRD on HD, CAD s/p CABG, Hypertension, DM who presents with complaints of SOB. #ESRD on HD #Fluid overload #CAD r/o ACS #Chronic Anemia #Hypertension #DM2 will plan for urgent UF as inpatient today with goal 2.5L UF regular dialysis/UF to be done tomorrow fluid restriction, renal diet Trend cardiac enzymes Cardiology follow up [facility] with HD tomorrow Thank you Benton Tyler DO Pt was seen by Dr. Mosquera during previous admission and he will resume care tomorrow.
--- NOTE | 2017-09-27 20:10 | EKG ---
Test Reason : Blood Pressure : / mmHG Vent. Rate : 076 BPM Atrial Rate : 076 BPM P-R Int : 192 ms QRS Dur : 090 ms QT Int : 434 ms P-R-T Axes : 014 026 039 degrees QTc Int : 488 ms NORMAL SINUS RHYTHM NONSPECIFIC ST ABNORMALITY ABNORMAL ECG WHEN COMPARED WITH ECG OF 16-FEB-2017 05:47, NONSPECIFIC T WAVE ABNORMALITY NOW EVIDENT IN INFERIOR LEADS Confirmed by EMELI VASQUEZ MD ([id number]) on 09/27/2017 8:09:56 PM Referred By: Confirmed By:EMELI VASQUEZ MD
[2017-09-27] MEDS ORDERED: WITCH HAZEL 50% (TUCKS) 40 PAD/JAR PAD TP PRN (21:59)
[2017-09-28] MEDS: GABAPENTIN 100 MG CAPSULE (FP) PO SCH ×2 (00:42→21:16)
[2017-09-28] MEDS: CARVEDILOL 6.25 MG TABLET (FP) PO SCH ×3 (00:42→21:16)
[2017-09-28] MEDS: VANCOMYCIN 250 MG/5 ML ORAL SOLUTION PO SCH ×5 (00:42→23:14)
[2017-09-28] MEDS ORDERED: PT OWN MED DRAWER 7, Y5N ONE ×2 (10:41→19:11)
[2017-09-28] MEDS: amLODIPine BESYLATE 10 MG TABLET (FP) PO SCH (10:57)
[2017-09-28] MEDS: PANTOPRAZOLE 40 MG TABLET (FP) PO SCH (10:57)
[2017-09-28] MEDS: PYRIDOXINE HCL (B-6) 50 MG TABLET (FP) PO SCH (10:57)
[2017-09-28] MEDS: ISONIAZID 300 MG TABLET (FP) PO SCH (10:57)
[2017-09-28] MEDS ORDERED: SODIUM CHLORIDE 250 ML IV PRN ×2 (13:00)
--- NOTE | 2017-09-28 14:49 | PN ---
Progress Note, Physician Chief Complaint: no new complaints tele nsr pvcs History of Present Illness: 71 year old woman with pmh HTN, HLD, DMII, ESRD on HD, CAD s/p CABG 2004 [facility], pt reported cardiac cath within the past 1 year that showed no new obstructive CAD, SBO s/p resection, multiple recent ER presentations and admission for SOB and fluid overload now admitted with SOB. P Pt states that she was in the ER yesterday with sob and was sent home but became more sob and swollen thus came back to the ER. She is doing better today post HD. - Current Medication List Current Medications: Active Medications Amlodipine Besylate (Norvasc -) 10 mg PO DAILY [facility] Last Admin: 09/28/17 10:57 Dose: 10 mg Carvedilol (Coreg -) 6.25 mg PO BID [facility] Last Admin: 09/28/17 10:57 Dose: 6.25 mg Gabapentin (Neurontin -) 100 mg PO HS [facility] Last Admin: 09/28/17 00:42 Dose: 100 mg Sodium Chloride (Normal Saline -) 250 mls @ 3,000 mls/hr IV PRN PRN PRN Reason: Hypotension during Dialysis Stop: 09/28/17 17:24 Isoniazid (Inh -) 300 mg PO DAILY [facility] Last Admin: 09/28/17 10:57 Dose: Not Given Pantoprazole Sodium (Protonix -) 40 mg PO DAILY [facility] Last Admin: 09/28/17 10:57 Dose: 40 mg Pyridoxine HCl (Vitamin B6 -) 100 mg PO DAILY [facility] Last Admin: 09/28/17 10:57 Dose: 100 mg Vancomycin HCl (Vancomycin Oral Solution) 125 mg PO Q6HPO [facility] Last Admin: 09/28/17 13:21 Dose: Not Given Witch Lupis/Glycerin (Tucks Pads -) 1 pad TP BID PRN PRN Reason: HEMORRHOIDS - Objective Vital Signs: Vital Signs Temperature 98.4 F 09/28/17 10:00 Pulse Rate 90 09/28/17 10:00 Respiratory Rate 20 09/28/17 10:00 Blood Pressure 131/76 09/28/17 10:00 O2 Sat by Pulse Oximetry (%) 94 L 09/28/17 13:00 Constitutional: Yes: No Distress, Calm Eyes: Yes: EOM Intact HENT: Yes: Normocephalic Neck: Yes: Supple, Trachea Midline Cardiovascular: Yes: Regular Rate and Rhythm Respiratory: Yes: CTA Bilaterally Gastrointestinal: Yes: Normal Bowel Sounds, Soft Extremities: Yes: WNL Edema: No Labs: CBC, BMP 09/27/17 12:55 Assessment/Plan 71 year old woman with pmh HTN, HLD, DMII, ESRD on HD, CAD s/p CABG 2004 [facility], pt reported cardiac cath within the past 1 year that showed no new obstructive CAD, SBO s/p resection, multiple recent ER presentations and admission for SOB and fluid overload now admitted with SOB. P Pt states that she was in the ER yesterday with sob and was sent home but became more sob and swollen thus came back to the ER. SOB-exam and imaging c/w pulmonary vascular congestion and peripheral edema, h/ o CAD CABG -Acute on likely chronic diastolic CHF -Volume removal with HD as per renal -pt states she does make urine, would consider starting Lasix if ok with renal -does not appear to be ACS, minimal Trop elevation with normal CK level and no ischemia on ekg and no reported chest pain -elevated troponin likely due to CHF and ESRD -trend serial cardiac enzymes and ekgs -echo 02/2017 showed normal LV and RV size and function and no significant valvular abnl -pt reports cardiac cath within this year at [facility] that showed no sig new obstructive CAD and no PCI was performed -would be helpful to have cardiac cath report for review -cont home CAD meds for now -can dc telemetry. will sign off. no need for further cardiac testing.
[2017-09-28 15:32] LABS: ANION GAP 11 MMOL/L (8-16); BLOOD UREA NITROGEN 41 mg/dL (7-18); CALCIUM 8.4 mg/dL (8.5-10.1); CHLORIDE 98 mmol/L (98-107); CO2 30 mmol/L (21-32); GLUCOSE,RANDOM 109 mg/dL (74-106); SODIUM 139 mmol/L (136-145)
[2017-09-28 15:34] LABS: CREATININE 4.3 mg/dL (0.55-1.02)
--- NOTE | 2017-09-28 15:50 | PN ---
Progress Note, Physician History of Present Illness: Pt seen and examined at bedside. She had two different charts in the system and Dr Bhardwaj was called yesterday. She was dialyzed last night and 2.5 liters were removed. She feels much better today. She denies shortness of breath. - Current Medication List Current Medications: Active Medications Amlodipine Besylate (Norvasc -) 10 mg PO DAILY [facility] Last Admin: 09/28/17 10:57 Dose: 10 mg Carvedilol (Coreg -) 6.25 mg PO BID [facility] Last Admin: 09/28/17 10:57 Dose: 6.25 mg Gabapentin (Neurontin -) 100 mg PO HS [facility] Last Admin: 09/28/17 00:42 Dose: 100 mg Sodium Chloride (Normal Saline -) 250 mls @ 3,000 mls/hr IV PRN PRN PRN Reason: Hypotension during Dialysis Stop: 09/28/17 17:24 Isoniazid (Inh -) 300 mg PO DAILY [facility] Last Admin: 09/28/17 10:57 Dose: Not Given Pantoprazole Sodium (Protonix -) 40 mg PO DAILY [facility] Last Admin: 09/28/17 10:57 Dose: 40 mg Pyridoxine HCl (Vitamin B6 -) 100 mg PO DAILY [facility] Last Admin: 09/28/17 10:57 Dose: 100 mg Vancomycin HCl (Vancomycin Oral Solution) 125 mg PO Q6HPO [facility] Last Admin: 09/28/17 13:21 Dose: Not Given Witch Lupis/Glycerin (Tucks Pads -) 1 pad TP BID PRN PRN Reason: HEMORRHOIDS - Objective Vital Signs: Vital Signs Temperature 97.5 F L 09/28/17 14:05 Pulse Rate 79 09/28/17 14:05 Respiratory Rate 16 09/28/17 14:05 Blood Pressure 143/61 09/28/17 14:05 O2 Sat by Pulse Oximetry (%) 94 L 09/28/17 13:00 Constitutional: Yes: Calm Eyes: Yes: Conjunctiva Clear HENT: Yes: Atraumatic Neck: Yes: Supple Cardiovascular: Yes: S1, S2 Respiratory: Yes: CTA Bilaterally Gastrointestinal: Yes: Normal Bowel Sounds, Soft Genitourinary: Yes: WNL Musculoskeletal: Yes: WNL Edema: Yes Edema: LLE: Trace, RLE: Trace Neurological: Yes: Oriented Psychiatric: Yes: Oriented Labs: CBC, BMP 09/27/17 12:55 09/28/17 14:20 Problem List - Problems (1) ESRD (end stage renal disease) Code(s): N18.6 - END STAGE RENAL DISEASE (2) HLD (hyperlipidemia) Code(s): E78.5 - HYPERLIPIDEMIA, UNSPECIFIED (3) HTN (hypertension) Code(s): I10 - ESSENTIAL (PRIMARY) HYPERTENSION (4) SOB (shortness of breath) Code(s): R06.02 - SHORTNESS OF BREATH Assessment/Plan Current Medications Generic Name Dose Route Start Last Admin Trade Name Freq PRN Reason Stop Dose Admin Amlodipine Besylate 10 mg 09/28/17 10:00 09/28/17 10:57 Norvasc - PO 10 mg DAILY [facility] Administration Carvedilol 6.25 mg 09/27/17 22:00 09/28/17 10:57 Coreg - PO 6.25 mg BID [facility] Administration Gabapentin 100 mg 09/27/17 22:00 09/28/17 00:42 Neurontin - PO 100 mg HS [facility] Administration Sodium Chloride 250 mls @ 3,000 mls/hr 09/27/17 17:24 Normal Saline - IV 09/28/17 17:24 PRN PRN Hypotension during Dialysis Isoniazid 300 mg 09/28/17 10:00 09/28/17 10:57 Inh - PO Not Given DAILY [facility] Pantoprazole Sodium 40 mg 09/28/17 10:00 09/28/17 10:57 Protonix - PO 40 mg DAILY [facility] Administration Pyridoxine HCl 100 mg 09/28/17 10:00 09/28/17 10:57 Vitamin B6 - PO 100 mg DAILY [facility] Administration Vancomycin HCl 125 mg 09/28/17 00:00 09/28/17 13:21 Vancomycin Oral Solution PO Not Given Q6HPO [facility] Witch Lupis/Glycerin 1 pad 09/27/17 21:59 Tucks Pads - TP BID PRN HEMORRHOIDS Impression 1. ESRD 2. dyspnea 3. CAD 4. HTN 5. DM 6. anemia Plan - pt had UF last night - will arrange for HD in am with UF as well - unable to dialyze today secondary to staffing problems. Pt is not short of breath and labs are stable - cardio input is appreciated - will follow Dr Mosquera
--- NOTE | 2017-09-28 17:40 | PN ---
Progress Note, Physician - Current Medication List Current Medications: Active Medications Amlodipine Besylate (Norvasc -) 10 mg PO DAILY [facility] Last Admin: 09/28/17 10:57 Dose: 10 mg Carvedilol (Coreg -) 6.25 mg PO BID [facility] Last Admin: 09/28/17 10:57 Dose: 6.25 mg Epoetin Edil (Epogen -) 6,000 unit IVPUSH ONCE ONE Stop: 09/29/17 15:51 Gabapentin (Neurontin -) 100 mg PO HS [facility] Last Admin: 09/28/17 00:42 Dose: 100 mg Sodium Chloride (Normal Saline -) 250 mls @ 3,000 mls/hr IV PRN PRN PRN Reason: Hypotension during Dialysis Stop: 09/28/17 17:24 Sodium Chloride (Normal Saline -) 250 mls @ 3,000 mls/hr IV PRN PRN PRN Reason: Hypotension during Dialysis Stop: 09/29/17 15:50 Isoniazid (Inh -) 300 mg PO DAILY [facility] Last Admin: 09/28/17 10:57 Dose: Not Given Pantoprazole Sodium (Protonix -) 40 mg PO DAILY [facility] Last Admin: 09/28/17 10:57 Dose: 40 mg Pyridoxine HCl (Vitamin B6 -) 100 mg PO DAILY [facility] Last Admin: 09/28/17 10:57 Dose: 100 mg Vancomycin HCl (Vancomycin Oral Solution) 125 mg PO Q6HPO [facility] Last Admin: 09/28/17 17:06 Dose: Not Given Witch Lupis/Glycerin (Tucks Pads -) 1 pad TP BID PRN PRN Reason: HEMORRHOIDS - Objective Vital Signs: Vital Signs Temperature 97.5 F L 09/28/17 14:05 Pulse Rate 79 09/28/17 14:05 Respiratory Rate 16 09/28/17 14:05 Blood Pressure 143/61 09/28/17 14:05 O2 Sat by Pulse Oximetry (%) 94 L 09/28/17 13:00 Labs: CBC, BMP 09/27/17 12:55 09/28/17 14:20 Problem List - Problems (1) SOB (shortness of breath) Code(s): R06.02 - SHORTNESS OF BREATH (2) ESRD (end stage renal disease) Code(s): N18.6 - END STAGE RENAL DISEASE (3) HTN (hypertension) Code(s): I10 - ESSENTIAL (PRIMARY) HYPERTENSION (4) HLD (hyperlipidemia) Code(s): E78.5 - HYPERLIPIDEMIA, UNSPECIFIED
[2017-09-29] MEDS: VANCOMYCIN 250 MG/5 ML ORAL SOLUTION PO SCH ×3 (05:04→19:02)
[2017-09-29] MEDS ORDERED: PT OWN MED DRAWER 7, Y5N ONE (09:29)
[2017-09-29 11:21] VITALS: TEMP 98
[2017-09-29] MEDS ORDERED: SODIUM CHLORIDE 250 ML IV PRN (12:41)
--- NOTE | 2017-09-29 12:41 | PN ---
Progress Note, Physician History of Present Illness: Pt seen and examined at bedside. She is tolerating HD. She denies shortness of breath. - Current Medication List Current Medications: Active Medications Amlodipine Besylate (Norvasc -) 10 mg PO DAILY [facility] Last Admin: 09/28/17 10:57 Dose: 10 mg Carvedilol (Coreg -) 6.25 mg PO BID [facility] Last Admin: 09/28/17 21:16 Dose: 6.25 mg Epoetin Edil (Procrit -) 6,000 unit IVPUSH ONCE ONE Stop: 09/29/17 13:01 Gabapentin (Neurontin -) 100 mg PO HS [facility] Last Admin: 09/28/17 21:16 Dose: 100 mg Sodium Chloride (Normal Saline -) 250 mls @ 3,000 mls/hr IV PRN PRN PRN Reason: Hypotension during Dialysis Stop: 09/29/17 12:59 Isoniazid (Inh -) 300 mg PO DAILY [facility] Last Admin: 09/28/17 10:57 Dose: Not Given Pantoprazole Sodium (Protonix -) 40 mg PO DAILY [facility] Last Admin: 09/28/17 10:57 Dose: 40 mg Pyridoxine HCl (Vitamin B6 -) 100 mg PO DAILY [facility] Last Admin: 09/28/17 10:57 Dose: 100 mg Vancomycin HCl (Vancomycin Oral Solution) 125 mg PO Q6HPO [facility] Last Admin: 09/29/17 05:04 Dose: Not Given Witch Lupis/Glycerin (Tucks Pads -) 1 pad TP BID PRN PRN Reason: HEMORRHOIDS - Objective Vital Signs: Vital Signs Temperature 98 F 09/29/17 10:00 Pulse Rate 75 09/29/17 11:55 Respiratory Rate 18 09/29/17 11:55 Blood Pressure 171/77 09/29/17 11:55 O2 Sat by Pulse Oximetry (%) 96 09/29/17 05:00 Constitutional: Yes: Calm Eyes: Yes: Conjunctiva Clear HENT: Yes: Atraumatic Neck: Yes: Supple Cardiovascular: Yes: S1, S2 Respiratory: Yes: CTA Bilaterally Gastrointestinal: Yes: Soft Genitourinary: Yes: WNL Musculoskeletal: Yes: WNL Edema: Yes Edema: LLE: Trace, RLE: Trace Neurological: Yes: Oriented Psychiatric: Yes: Oriented Labs: CBC, BMP 09/27/17 12:55 09/28/17 14:20 Problem List - Problems (1) ESRD (end stage renal disease) Code(s): N18.6 - END STAGE RENAL DISEASE (2) HLD (hyperlipidemia) Code(s): E78.5 - HYPERLIPIDEMIA, UNSPECIFIED (3) HTN (hypertension) Code(s): I10 - ESSENTIAL (PRIMARY) HYPERTENSION (4) SOB (shortness of breath) Code(s): R06.02 - SHORTNESS OF BREATH Assessment/Plan Current Medications Generic Name Dose Route Start Last Admin Trade Name Freq PRN Reason Stop Dose Admin Amlodipine Besylate 10 mg 09/28/17 10:00 09/28/17 10:57 Norvasc - PO 10 mg DAILY [facility] Administration Carvedilol 6.25 mg 09/27/17 22:00 09/28/17 21:16 Coreg - PO 6.25 mg BID [facility] Administration Epoetin Edil 6,000 unit 09/29/17 13:00 Procrit - IVPUSH 09/29/17 13:01 ONCE ONE Gabapentin 100 mg 09/27/17 22:00 09/28/17 21:16 Neurontin - PO 100 mg HS [facility] Administration Sodium Chloride 250 mls @ 3,000 mls/hr 09/28/17 13:00 Normal Saline - IV 09/29/17 12:59 PRN PRN Hypotension during Dialysis Isoniazid 300 mg 09/28/17 10:00 09/28/17 10:57 Inh - PO Not Given DAILY [facility] Pantoprazole Sodium 40 mg 09/28/17 10:00 09/28/17 10:57 Protonix - PO 40 mg DAILY [facility] Administration Pyridoxine HCl 100 mg 09/28/17 10:00 09/28/17 10:57 Vitamin B6 - PO 100 mg DAILY [facility] Administration Vancomycin HCl 125 mg 09/28/17 00:00 09/29/17 05:04 Vancomycin Oral Solution PO Not Given Q6HPO [facility] Witch Lupis/Glycerin 1 pad 09/27/17 21:59 Tucks Pads - TP BID PRN HEMORRHOIDS Impression 1. ESRD 2. dyspnea 3. CAD 4. HTN 5. DM 6. anemia Plan - HD today - pt on TTS schedule - HD here tomorrow if not discharged, if she is discharged she can go to HD as outpt - cont home meds - discussed volume and fluid - will follow Dr Mosquera
[2017-09-29] MEDS ORDERED: EPOETIN ALFA 3,000 UNIT/1 ML ML IVPUSH ONE (13:00)
[2017-09-29 16:02] VITALS: BP 154/76; PULSE 80
[2017-09-29] MEDS: PYRIDOXINE HCL (B-6) 50 MG TABLET (FP) PO SCH (16:05)
[2017-09-29] MEDS: PANTOPRAZOLE 40 MG TABLET (FP) PO SCH (16:06)
[2017-09-29] MEDS: ISONIAZID 300 MG TABLET (FP) PO SCH (16:06)
[2017-09-29] MEDS: CARVEDILOL 6.25 MG TABLET (FP) PO SCH (16:06)
[2017-09-29] MEDS: amLODIPine BESYLATE 10 MG TABLET (FP) PO SCH (16:06)
--- NOTE | 2017-09-29 17:49 | PN ---
Progress Note, Physician - Current Medication List Current Medications: Active Medications Amlodipine Besylate (Norvasc -) 10 mg PO DAILY [facility] Last Admin: 09/29/17 16:06 Dose: 10 mg Carvedilol (Coreg -) 6.25 mg PO BID [facility] Last Admin: 09/29/17 16:06 Dose: 6.25 mg Epoetin Edil (Epogen -) 6,000 unit IVPUSH ONCE ONE Stop: 09/30/17 12:42 Gabapentin (Neurontin -) 100 mg PO HS [facility] Last Admin: 09/28/17 21:16 Dose: 100 mg Sodium Chloride (Normal Saline -) 250 mls @ 3,000 mls/hr IV PRN PRN PRN Reason: Hypotension during Dialysis Stop: 09/30/17 12:41 Isoniazid (Inh -) 300 mg PO DAILY [facility] Last Admin: 09/29/17 16:06 Dose: 300 mg Pantoprazole Sodium (Protonix -) 40 mg PO DAILY [facility] Last Admin: 09/29/17 16:06 Dose: 40 mg Pyridoxine HCl (Vitamin B6 -) 100 mg PO DAILY [facility] Last Admin: 09/29/17 16:05 Dose: 100 mg Vancomycin HCl (Vancomycin Oral Solution) 125 mg PO Q6HPO [facility] Last Admin: 09/29/17 15:36 Dose: Not Given Witch Lupis/Glycerin (Tucks Pads -) 1 pad TP BID PRN PRN Reason: HEMORRHOIDS - Objective Vital Signs: Vital Signs Temperature 98 F 09/29/17 16:01 Pulse Rate 80 09/29/17 16:01 Respiratory Rate 20 09/29/17 16:01 Blood Pressure 154/76 09/29/17 16:01 O2 Sat by Pulse Oximetry (%) 96 09/29/17 13:00 Constitutional: Yes: No Distress HENT: Yes: Atraumatic Neck: Yes: Supple Cardiovascular: Yes: Regular Rate and Rhythm Respiratory: Yes: CTA Bilaterally Gastrointestinal: Yes: Normal Bowel Sounds Extremities: Yes: WNL Neurological: Yes: Alert, Oriented Labs: CBC, BMP 09/27/17 12:55 09/28/17 14:20 Problem List - Problems (1) SOB (shortness of breath) Code(s): R06.02 - SHORTNESS OF BREATH (2) ESRD (end stage renal disease) Code(s): N18.6 - END STAGE RENAL DISEASE (3) HTN (hypertension) Code(s): I10 - ESSENTIAL (PRIMARY) HYPERTENSION (4) HLD (hyperlipidemia) Code(s): E78.5 - HYPERLIPIDEMIA, UNSPECIFIED
--- NOTE | 2017-09-29 17:50 | DS ---
Physical Examination Vital Signs: Vital Signs Temperature 98 F 09/29/17 16:01 Pulse Rate 80 09/29/17 16:01 Respiratory Rate 20 09/29/17 16:01 Blood Pressure 154/76 09/29/17 16:01 O2 Sat by Pulse Oximetry (%) 96 09/29/17 13:00 Constitutional: Yes: No Distress HENT: Yes: Atraumatic Neck: Yes: Supple Cardiovascular: Yes: Regular Rate and Rhythm Respiratory: Yes: CTA Bilaterally Gastrointestinal: Yes: Normal Bowel Sounds Extremities: Yes: WNL Neurological: Yes: Alert, Oriented Labs: CBC, BMP 09/27/17 12:55 09/28/17 14:20 Discharge Summary Reason For Visit: ELEVATED TROPONIN LEVEL, SERUM CREATININE RAISED Current Active Problems ESRD (end stage renal disease) (Acute) HLD (hyperlipidemia) (Acute) HTN (hypertension) (Acute) SOB (shortness of breath) (Acute) - Instructions - Home Medications Comprehensive Discharge Medication List: Ambulatory Orders Carvedilol 6.25 mg PO BID 09/20/16 Gabapentin 100 mg PO HS 09/20/16 Isoniazid 300 mg PO DAILY 09/20/16 Pyridoxine HCl [Vitamin B-6] 100 mg PO DAILY 09/20/16 Walker [Ultra-Light Rollator] 1 each MC DAILY #1 each 09/23/16 Acetaminophen [Tylenol .Regular Strength -] 650 mg PO Q6H PRN tablet 09/26/17 Albuterol 2.5/Ipratropium 0.5 [Duoneb -] 1 amp NEB Q6H PRN #120 amp 09/26/17 Amlodipine Besylate [Norvasc -] 10 mg PO DAILY #30 tablet 09/26/17 Nebulizer [Aeroeclipse II] 1 each MC PRN PRN #1 each 09/26/17 Pantoprazole Sodium [Protonix] 40 mg PO DAILY #30 tablet. 09/26/17 Phenyleph/Mineral Oil/Petrolat [Preparation H Ointment] 1 applic RC DAILY oint 09/26/17 Vancomycin Oral Solution 125 mg PO Q6HPO #40 ml 09/26/17 Witch Lupis 50% (Tucks) [Tucks Pads -] 1 pad TP PRN PRN #30 pad 09/26/17 Acetaminophen [Tylenol] 650 mg PO Q6H PRN 09/27/17 Albuterol 2.5/Ipratropium 0.5 [Duoneb -] 1 neb NEB Q6H PRN 09/27/17 Amlodipine Besylate [Norvasc -] 10 mg PO DAILY 09/27/17 Carvedilol [Coreg] 6.25 mg PO BID 09/27/17 Gabapentin [Neurontin -] 100 mg PO HS 09/27/17 Isoniazid 300 mg PO DAILY 09/27/17 Pantoprazole Sodium [Protonix] 40 mg PO DAILY 09/27/17 Phenyleph/Mineral Oil/Petrolat [Preparation H Ointment] 1 applic RC DAILY Pyridoxine HCl (Vitamin B6) [Vitamin B-6] 100 mg PO DAILY 09/27/17 Vancomycin Oral Solution 125 mg PO Q6H 09/27/17 Witch Lupis 50% (Tucks) [Tucks Pads -] 1 pad TP BID PRN 09/27/17 cleared by cardiology to be dc no need for further testing pt refused the third set of cardiac profile yesterda
[2017-09-30 00:06] LABS: HBSAG SCREEN Negative (Negative); HEP A AB, IGM Negative (Negative); HEP B CORE AB, TOT Negative (Negative)
[2017-09-30] MEDS ORDERED: EPOETIN ALFA 2,000 UNIT/1 ML VIAL IVPUSH ONE (12:41)
== END 2017-09-29 19:44 | disposition home or self-care (01) ==
LOC: JER 11:28 → JERBED 14:45 → MERGE 14:45 → INTOOBSV 14:45 → J4S 16:33
PROVIDERS: ADMIT Internal Medicine; ATTEND Internal Medicine
PROC: 3E033GC Introduction of Other Therapeutic Substance into Peripheral Vein, Percutaneous Approach (ICD-10-PCS; principal; 2017-09-27)
DX: R06.02 Shortness of breath (principal); R77.8 Other specified abnormalities of plasma proteins; R79.89 Other specified abnormal findings of blood chemistry; E11.22 Type 2 diabetes mellitus with diabetic chronic kidney disease; I12.0 Hypertensive chronic kidney disease with stage 5 chronic kidney disease or end stage renal disease; N18.6 End stage renal disease; Z99.2 Dependence on renal dialysis; E78.5 Hyperlipidemia, unspecified; I25.10 Atherosclerotic heart disease of native coronary artery without angina pectoris; I51.7 Cardiomegaly; E87.70 Fluid overload, unspecified; I50.9 Heart failure, unspecified; D64.9 Anemia, unspecified; Z98.61 Coronary angioplasty status; Z86.73 Personal history of transient ischemic attack (TIA), and cerebral infarction without residual deficits; Z79.82 Long term (current) use of aspirin; Z95.1 Presence of aortocoronary bypass graft
CPT/HCPCS: 36415; 36600; 71045-TC-FY; 80048; 80053; 82375; 82550; 82803; 83050; 83880; 84484; 85025; 86704; 86706; 86708; 86803; 87340; 93005; 93010; 96374; 99281-25; G0378; J0885

== ENCOUNTER 2017-10-09 21:48 | Inpatient (IN) | payer OTHER ==
--- NOTE | 2017-10-09 22:39 | PDOC ---
History of Present Illness - General Chief Complaint: Chest Pain Stated Complaint: CHEST PAIN Time Seen by Provider: 10/09/17 22:05 History Source: Patient, Family (daughter) Exam Limitations: Language Barrier - History of Present Illness Initial Comments: 10/09/17 22:28 *Patient is Austrian speaking only. Daughter helped translate* Pt is a 71yo F with PMH of ESRD on HD (T,Th,S), HTN, HLD, CAD s/p CABG, DM, SBO s/p resection presenting to ED with daughter and son after a syncopal episode 45 minutes prior to arrival to ED. According to daughter, the pt tried to sit up in bed and then passed out for about 5 minutes. No head injury. According to daughter pt has been feeling tired and overall malaise since the episode. Earlier today, pt and family were outside playing cards. Pt admits to SOB, chest pain which feels like a tightness, pain in the back, and ongoing nausea. She denies fever, chills, cough, abdominal pain, vomiting, diarrhea, swelling in the legs. She last had dialysis on Monday. She is not on blood thinners According to pt she does not have a PCP PMH: see hpi Meds: see med rec Allergies: nkda Past History - Past Medical History Allergies/Adverse Reactions: Allergies Allergy/AdvReac Type Severity Reaction Status Date / Time No Known Allergies Allergy Verified 09/20/16 11:41 Home Medications: Ambulatory Orders Carvedilol 6.25 mg PO BID 09/20/16 Gabapentin 100 mg PO HS 09/20/16 Isoniazid 300 mg PO DAILY 09/20/16 Albuterol 2.5/Ipratropium 0.5 [Duoneb -] 1 amp NEB Q6H PRN #120 amp 09/26/17 Amlodipine Besylate [Norvasc -] 10 mg PO DAILY #30 tablet 09/26/17 Nebulizer [Aeroeclipse II] 1 each MC PRN PRN #1 each 09/26/17 Pantoprazole Sodium [Protonix] 40 mg PO DAILY #30 tablet. 09/26/17 Martin Baugh 50% (Gustavos) [Tucks Pads -] 1 pad TP PRN PRN #30 pad 09/26/17 Acetaminophen [Tylenol] 650 mg PO Q6H PRN 09/27/17 Pyridoxine HCl (Vitamin B6) [Vitamin B-6] 100 mg PO DAILY 09/27/17 Anemia: No Asthma: No Cardiac Disorders: Yes (CAD, CABG) CVA: Yes (CVA) COPD: No CHF: No Dementia: No Diabetes: Yes Dialysis: Yes (tues, thurs, sat) GI Disorders: Yes (HERNIA, small bowel resection) Disorders: Yes (ESRD) HTN: Yes Hypercholesterolemia: Yes Liver Disease: No Seizures: No Thyroid Disease: No - Surgical History Abdominal Surgery: No Appendectomy: No Cardiac Surgery: Yes (BYPASS) Cholecystectomy: No Lung Surgery: No Neurologic Surgery: No Orthopedic Surgery: No - Immunization History Td Vaccination: (UNKNOWN) Immunization Up to Date: Yes (FLU AND PNA) - Suicide/Smoking/Psychosocial Hx Smoking Status: No Smoking History: Never smoked Have you smoked in the past 12 months: No Number of Cigarettes Smoked Daily: 0 Cigars Per Day: 0 Information on smoking cessation initiated: No Hx Alcohol Use: No Drug/Substance Use Hx: No Substance Use Type: None Hx Substance Use Treatment: No Review of Systems - Review of Systems Constitutional: Yes: Weakness. No: Chills, Fever HEENTM: Yes: Blurred Vision. No: Recent change in vision, Double Vision, Ear Pain, Mouth Pain Respiratory: Yes: Shortness of Breath. No: Cough Cardiac (ROS): Yes: Lightheadedness, Palpitations, Syncope, Chest Tightness ABD/GI: Yes: Nausea (persistent nausea.). No: Constipated, Diarrhea, Poor Appetite, Vomiting, Abdominal cramping : No: Burning, Dysuria Musculoskeletal: Yes: Back Pain Neurological: Yes: Headache, Numbness. No: Tingling, Dizziness *Physical Exam - Vital Signs Last Vital Signs Temp Pulse Resp BP Pulse Ox 98.6 F 81 19 136/61 97 10/09/17 21:50 10/09/17 21:50 10/09/17 21:50 10/09/17 21:50 10/09/17 21:50 - Physical Exam Comments: 10/09/17 22:56 Pt in bed with daughter and son at bedside. Pt appeared to be short of breath even though she was saturating at 98% General Appearance: Yes: Nourished, Appropriately Dressed, Moderate Distress HEENT: positive: EOMI, ELVA, Pharynx Normal, Hearing Grossly Normal. negative: Pale Conjunctivae, Photophobia, Scleral Icterus (R), Scleral Icterus (L), Nasal Congestion Neck: positive: Trachea midline, Supple. negative: Carotid bruit, Lymphadenopathy (R), Lymphadenopathy (L) Respiratory/Chest: positive: Lungs Clear, Normal Breath Sounds. negative: Rales , Rhonchi, Stridor, Wheezing Cardiovascular: positive: Regular Rhythm, Regular Rate, S1, S2, Murmur ( holosystolic), Systolic Murmur. negative: Edema, JVD Vascular Pulses: Carotid (R): 2+, Carotid (L): 2+, Dorsalis-Pedis (R): 2+, Doralis-Pedis (L): 2+ Gastrointestinal/Abdominal: positive: Normal Bowel Sounds, Soft, Tenderness (to palpation in all quadrants), Hernia (periumbilical hernia). negative: Distended , Guarding, Rebound Musculoskeletal: negative: CVA Tenderness Extremity: positive: Normal Capillary Refill, Other (palpable thrill in fistula located in R forearm) Integumentary: positive: Normal Color, Dry, Warm Neurologic: positive: salary and wage administrator II-XII NML intact, Fully Oriented, Alert, Normal Response, Motor Strength 5/5 ED Treatment Course - LABORATORY CBC & Chemistry Diagram: 10/09/17 22:39 10/09/17 22:46 - RADIOLOGY Radiology Studies Ordered: Category Date Time Status CHEST X-RAY PORTABLE* [RAD] Stat Radiology 10/09/17 22:25 Ordered Medical Decision Making - Medical Decision Making 10/09/17 22:52 Pt is a 71yo F with PMH of ESRD on HD (T,Th,S), HTN, HLD, CAD s/p CABG, DM, SBO s/p resection presenting to ED with daughter and son after a syncopal episode 45 minutes prior to arrival to ED. + SOB, Chest tightness. Physical exam showed diffuse abdominal tenderness. Pt not complaining of abdominal pain, no vomiting or diarrhea, able to tolerate PO. Low suspicion for bowel obstruction or incarcerated hernia at this time. -Pt is afebrile, normotensive, not tachycardic, not hypoxic. low suspicion for sepsis. -Low suspicion for PE: no signs of DVT, not tachycardic, not tachypneic, saturating well on RA, no hemoptysis, no recent travel, no malignancy. -Will do syncopal workup. Pt admitted to hospitalist last time, Dr. Tyler and Dr. Powell consulted previously. -Ordered EKG, CT head, labs, CXR. 10/09/17 23:23 Labs: Hgb 9.0 (8.1 on 09/27), BUN 115, Cr 8.1. All other electrolytes wnl. Cardiac enzymes wnl. CXR compared to 09/27, no acute changes Ct head: No acute pathology EKG: NSR, borderline prolonged QT. No T wave changes or ST elevations/ depressions compared to EKG 09/27 Will admit pt obs for syncope. Will consult Dr. Tyler for pt to be put on dialysis tomorrow 10/09/17 23:49 Went to reevaluate pt. Sleeping comfortably in bed, saturating 96% RA 10/10/17 00:02 Pt will be admitted obs *DC/Admit/Observation/Transfer Diagnosis at time of Disposition: ESRD (end stage renal disease), Dialysis patient Syncope Qualifiers: Syncope type: unspecified Qualified Code(s): R55 - Syncope and collapse - Discharge Dispostion Condition at time of disposition: Stable Decision to Admit order: Yes - Referrals - Patient Instructions - Post Discharge Activity
[2017-10-09 22:50] LABS: BASO % 1.5 % (0-2.0); HEMATOCRIT 27.1 % (32.4-45.2); LYMPH % 17.7 % (8-40); MCH 30.9 pg (25.7-33.7); MCHC 33.4 g/dl (32.0-36.0); MEAN CELL VOLUME 92.5 fl (80-96); MEAN PLT VOLUME 9.2 fl (7.5-11.1); MONO % 5.8 % (3.8-10.2); PLATELET COUNT 357 K/MM3 (134-434); RBC 2.93 M/mm3 (3.60-5.2); RDW 17.2 % (11.6-15.6); WHITE BLOOD COUNT 9.2 K/mm3 (4.0-10.0)
[2017-10-09 23:13] LABS: ALBUMIN 3.2 g/dl (3.4-5.0); ALK PHOS 188 U/L (45-117); ANION GAP 17 MMOL/L (8-16); BILIRUBIN,TOTAL 0.7 mg/dL (0.2-1.0); CALCIUM 8.1 mg/dL (8.5-10.1); CHLORIDE 102 mmol/L (98-107); CO2 21 mmol/L (21-32); GLUCOSE,RANDOM 116 mg/dL (74-106); MAGNESIUM 2.8 mg/dL (1.8-2.4); PHOSPHOROUS 5.4 mg/dL (2.5-4.9); POTASSIUM 4.7 mmol/L (3.5-5.1); SGOT/AST 12 U/L (15-37); SGPT/ALT 9 U/L (12-78); SODIUM 140 mmol/L (136-145); TOT PROT 6.8 g/dl (6.4-8.2)
[2017-10-09 23:14] LABS: BLOOD UREA NITROGEN 115 mg/dL (7-18); CREATININE 8.1 mg/dL (0.55-1.02)
--- NOTE | 2017-10-10 00:04 | PDOC ---
Attending Attestation - Resident Resident Name: ShawneeSaNakita - ED Attending Attestation I have performed the following: I have examined & evaluated the patient, The case was reviewed & discussed with the resident, I agree w/resident's findings & plan, Exceptions are as noted - HPI HPI: 10/09/17 23:58 71 yo female BIBA after she had a witnessed syncopal episode at home . Her family states she 'passed out" for 5 minutes PMH ESRD T,Th, Sat, HTN,CAD s/p CABG, DM, PSH dialysis shunt rt arm, resection for SBO - Physicial Exam PE: 10/10/17 00:06 71 yo female resting comfortably at this time head ncat neck supple extremities there is rt arm dialysis shunt with +bruit and thrill abd nontender lungs no wheezing [facility] [id number] neuro alert,moving all extremities ext no significnat edema - Medical Decision Making 10/10/17 01:06 IMP witnessed syncopal episode ct scan head negative for any acute intracranial pathology neg trop normal potassium level Dr Jayson Bhardwaj contacted for dialysis in the morning admitted tele obs
--- NOTE | 2017-10-10 00:17 | PN ---
Teaching Attending Note Name of Resident: Karen Moura ATTENDING PHYSICIAN STATEMENT I saw and evaluated the patient. I reviewed the resident's note and discussed the case with the resident. I agree with the resident's findings and plan as documented. SUBJECTIVE: Patient is a 71 sneha old woman with PMH of ESRD on HD (T,Th,S), HTN, HLD, CAD s/ p CABG, DM, SBO s/p resection presenting to ER after a syncopal episode 45 minutes prior to arrival. According to daughter, the she tried to sit up in bed and then passed out for about 5 minutes. No head injury. According to daughter she has been feeling tired and overall malaise since the episode. Earlier today , patient and family were outside playing cards. Patient admits to SOB, chest pain which feels like a tightness, pain in the back, and ongoing nausea. Denies fever, chills, cough, abdominal pain, vomiting, or diarrhea. Was he last dialyzed on 2 days ago. OBJECTIVE: Alert Vital Signs Period Temp Pulse Resp BP Sys/Rodriguez Pulse Ox Last 24 Hr 98.6 F 81 19 136/61 97 HEENT: No Jaundice, eye redness or discharge, PERRLA, EOMI. Normocephalic, atraumatic. External ears are normal and hearing is grossly intact. No nasal discharge. Neck: Supple, nontender. No palpable adenopathy or thyromegaly. No JVD Chest: Good effort. Diminished breath sounds. Few crackles but no rales. Heart: Regular. No S3, rub or murmur Abdomen: Not distended, soft, nontender and no HSM. No rebound or guarding. Normoactive bowel sounds. Ext: Peripheral pulses intact. Leg edema. RUE AV fistula. Skin: Warm and dry. No petechiae, rash or ecchymosis. Neuro: Alert. Oriented x3. CN 2-12 grossly intact. Sensation grossly intact in all four extremities and DTR are symmetric. Home Medications Medication Instructions Recorded Carvedilol 6.25 mg PO BID 09/20/16 Gabapentin 100 mg PO HS 09/20/16 Isoniazid 300 mg PO DAILY 09/20/16 Albuterol 2.5/Ipratropium 0.5 1 amp NEB Q6H PRN #120 amp 09/26/17 [Duoneb -] Amlodipine Besylate [Norvasc -] 10 mg PO DAILY #30 tablet 09/26/17 Nebulizer [Aeroeclipse II] 1 each MC PRN PRN #1 each 09/26/17 Pantoprazole Sodium [Protonix] 40 mg PO DAILY #30 tablet. 09/26/17 Martin Baugh 50% (Tucks) [Tucks 1 pad TP PRN PRN #30 pad 09/26/17 Pads -] Acetaminophen [Tylenol] 650 mg PO Q6H PRN 09/27/17 Pyridoxine HCl (Vitamin B6) 100 mg PO DAILY 09/27/17 [Vitamin B-6] Abnormal Lab Results 10/09/17 10/09/17 22:39 22:46 RBC 2.93 L Hgb 9.0 L Hct 27.1 L RDW 17.2 H Anion Gap 17 H BUN 115 H* D Creatinine 8.1 H* Random Glucose 116 H Calcium 8.1 L Phosphorus 5.4 H Magnesium 2.8 H AST 12 L ALT 9 L Alkaline Phosphatase 188 H D Albumin 3.2 L ASSESSMENT AND PLAN: 1. Syncope/Chest pain - Patient will be admitted to telemetry to rule out ACS and will get brain MRI, carotid doppler for syncope workup. Has features of fluid overload so will consult nephrology for hemodialysis raul. Getting lasix 160 mg IV stat. Low index of suspicion for pulmonary embolism. 2. Anemia - Likely mostly due to ESRD. Do basic anemia work up including serial stool guaiacs, reticulocyte count and iron studies. Ensure that patient is getting adequate hemodialysis and is iron replete - to maximize response to EPO. 3. Obesity - Will provide patient all the necessary assistance, counseling and positive reinforcement to facilitate weight loss. Consult infrastructure design engineer. 4. DVT prophylaxis - Heparin 5000u sq tid. 5. Advance directives - Full code
[2017-10-10] MEDS ORDERED: ACETAMINOPHEN 325 MG TABLET (FP) PO ONE (00:44)
[2017-10-10] MEDS ORDERED: ACETAMINOPHEN 325 MG TABLET (FP) ONE (00:44)
[2017-10-10] MEDS ORDERED: FUROSEMIDE 40 MG/4 ML INJECTABLE VIAL IVPB ONE (02:52)
[2017-10-10] MEDS ORDERED: FUROSEMIDE 40 MG/4 ML INJECTABLE VIAL ONE (02:58)
[2017-10-10 03:11] LABS: ARTERIAL BLD GAS O2 SATURATION 97.6 % (90-98.9); ARTERIAL BLOOD GAS BASE EXCESS -8.9 meq/l (-2-2); ARTERIAL BLOOD GAS pH 7.31 (7.35-7.45)
[2017-10-10 03:13] LABS: ALLENS TEST POSITIVE
--- NOTE | 2017-10-10 04:06 | HP ---
CHIEF COMPLAINT: Syncope + Chest pain PCP: HISTORY OF PRESENT ILLNESS: 71 y/o, primarily azeri speaking female (Director Of Reimbursement Sherri [phone]), with a PMHx of ESRD on HD (,,Mon), HTN, HLD, CAD s/p CABG, DM, Small bowel resection , CVA, ventral hernia presents after a syncopal episode. Part of the history was also provided by the daughter Concha Milligan over the phone. Earlier today, she started to feel Palpitations, lightheadedness and dizziness followed by chest pain. She says the chest pain feels similar to the chest pain she felt during her last admission. Her daughter then gave her a baby aspirin and Asthma tx. The chest pain continued and was followed by a syncopal episode where the patient passed out while sitting upright in her chair for 2-3 minutes. The patient does not remember the episode nor does she remember be woking up. Her daughter denies that the patient had any jerking movements of her neck or extremities, hitting her head loss of bowel or bladder control or tongue biting. Once the family was able to awaken the patient, EMS was called. Currently, she continues to experience chest pain. She describes the pain as constant, reproducible, 9/10, tightness to the left of her midsternum that radiates down her left arm. The pain does not change with breathing or movements of her neck or arm. She denies any recent trauma to the area and denies any rash. Denies any recent increase in stress or anxiety. Additionally experiences SOB, runny nose. She is experiencing a chronic Cough ( she has had for ~12 years) productive of white phlegm. She has been able to tolerate oral diet and denies any decrease in her fluid intake. Denies any recent medication changes or antibiotic use. Denies any fevers, chills, night sweats, hemoptysis, hematuria, hematemesis, bloody stools, dysuria, urinary urgency/freqency, diarrhea. Of note patient is oliguric. ER course was notable for: (1) CT Head, EKG, CXR (2) (3) Recent Travel: Denies PAST MEDICAL HISTORY: ESRD on HD (, , Mon; For the past 5 years due to HTN) HTN HLD CAD s/p CABG DM Small bowel resection CVA Ventral hernia PAST SURGICAL HISTORY: CABG (2004) Small bowel resection Social History: Smoking: Denies Alcohol: Denies Drugs: Denies Occupation: Retired Residence: At home with family Ambulation: With Cane or Walker Family History: Denies Allergies No Known Allergies Allergy (Verified 09/20/16 11:41) HOME MEDICATIONS: Home Medications Medication Instructions Recorded Carvedilol 6.25 mg PO BID 09/20/16 Gabapentin 100 mg PO HS 09/20/16 Isoniazid 300 mg PO DAILY 09/20/16 Albuterol 2.5/Ipratropium 0.5 1 amp NEB Q6H PRN #120 amp 09/26/17 [Duoneb -] Amlodipine Besylate [Norvasc -] 10 mg PO DAILY #30 tablet 09/26/17 Nebulizer [Aeroeclipse II] 1 each MC PRN PRN #1 each 09/26/17 Pantoprazole Sodium [Protonix] 40 mg PO DAILY #30 tablet. 09/26/17 Martin Baugh 50% (Kourtney) [Tucks 1 pad TP PRN PRN #30 pad 09/26/17 Pads -] Acetaminophen [Tylenol] 650 mg PO Q6H PRN 09/27/17 Pyridoxine HCl (Vitamin B6) 100 mg PO DAILY 09/27/17 [Vitamin B-6] REVIEW OF SYSTEMS CONSTITUTIONAL: Absent: fever, chills, diaphoresis, generalized weakness, malaise, loss of appetite, weight change HEENT: Absent: rhinorrhea, nasal congestion, throat pain, throat swelling, difficulty swallowing, mouth swelling, ear pain, eye pain, visual changes CARDIOVASCULAR: Present: chest pain, syncope, palpitations, lightheadedness Absent: irregular heart rate, peripheral edema RESPIRATORY: Present: cough, shortness of breath, Absent: dyspnea with exertion, orthopnea, wheezing, stridor, hemoptysis GASTROINTESTINAL: Present: abdominal pain, nausea, Absent: abdominal distension, vomiting, diarrhea, constipation, melena, hematochezia GENITOURINARY: Absent: dysuria, frequency, urgency, hesitancy, hematuria, flank pain, genital pain MUSCULOSKELETAL: Present: back pain, neck pain Absent: myalgia, arthralgia, joint swelling, SKIN: Absent: rash, itching, pallor HEMATOLOGIC/IMMUNOLOGIC: Absent: easy bleeding, easy bruising, lymphadenopathy, frequent infections ENDOCRINE: Absent: unexplained weight gain, unexplained weight loss, heat intolerance, cold intolerance NEUROLOGIC: Absent: headache, focal weakness or paresthesias, dizziness, unsteady gait, seizure, mental status changes, bladder or bowel incontinence PSYCHIATRIC: Absent: anxiety, depression, suicidal or homicidal ideation, hallucinations. PHYSICAL EXAMINATION Vital Signs - 24 hr 10/09/17 10/09/17 21:50 22:30 Temperature 98.6 F Pulse Rate 81 Respiratory 19 Rate Blood Pressure 136/61 O2 Sat by Pulse 97 97 Oximetry (%) GENERAL: Awake, alert, and fully oriented, in moderate distress. HEAD: NCAT EYES: PERRL, EOMI THROAT: Oropharynx clear without exudates. Dry mucous membranes. NECK: No JVD LUNGS: Diminished breath sounds throughout HEART: Regular rate and rhythm, normal S1 and S2 ABDOMEN: Soft, Tender to palpation on the left side, Large Umbilical hernia, not distended, normoactive bowel sounds, no guarding, no rebound MUSCULOSKELETAL: No CVA tenderness UPPER EXTREMITIES: Fistula present on the Right medial posterior forearm with palpable thrill LOWER EXTREMITIES: 2+ pulses, No calf tenderness. No peripheral edema. NEUROLOGICAL: Cranial nerves II-XII intact. Gross sensation intact. SKIN: Warm, dry, no rashes or lesions noted Laboratory Results - last 24 hr 10/09/17 10/09/17 10/09/17 22:39 22:46 22:46 WBC 9.2 RBC 2.93 L Hgb 9.0 L Hct 27.1 L MCV 92.5 MCH 30.9 MCHC 33.4 RDW 17.2 H Plt Count 357 D MPV 9.2 Absolute Neuts (auto) 6.7 Neutrophils % 73.0 Lymphocytes % 17.7 Monocytes % 5.8 Eosinophils % 2.0 Basophils % 1.5 Nucleated RBC % 0 Puncture Site ABG pH ABG pCO2 at Pt Temp ABG pO2 at Pt Temp ABG HCO3 ABG O2 Sat (Measured) ABG O2 Content ABG Base Excess Francisco Test O2 Delivery Device Oxygen Flow Rate Sodium 140 Potassium 4.7 Chloride 102 Carbon Dioxide 21 Anion Gap 17 H BUN 115 H* D Creatinine 8.1 H* Creat Clearance w eGFR 4.86 Random Glucose 116 H Lactic Acid 0.6 Calcium 8.1 L Phosphorus 5.4 H Magnesium 2.8 H Total Bilirubin 0.7 AST 12 L ALT 9 L Alkaline Phosphatase 188 H D Creatine Kinase Troponin I Total Protein 6.8 Albumin 3.2 L 10/09/17 10/10/17 22:46 03:05 WBC RBC Hgb Hct MCV MCH MCHC RDW Plt Count MPV Absolute Neuts (auto) Neutrophils % Lymphocytes % Monocytes % Eosinophils % Basophils % Nucleated RBC % Puncture Site Left radial ABG pH 7.31 L D ABG pCO2 at Pt Temp 33.0 L D ABG pO2 at Pt Temp 103.0 H D ABG HCO3 16.1 L ABG O2 Sat (Measured) 97.6 ABG O2 Content 12.1 L ABG Base Excess -8.9 L Francisco Test Positive O2 Delivery Device Room air Oxygen Flow Rate No Sodium Potassium Chloride Carbon Dioxide Anion Gap BUN Creatinine Creat Clearance w eGFR Random Glucose Lactic Acid Calcium Phosphorus Magnesium Total Bilirubin AST ALT Alkaline Phosphatase Creatine Kinase 38 Troponin I < 0.02 Total Protein Albumin Active Medications Heparin Sodium (Porcine) (Heparin -) 5,000 unit SQ TID GRAYSON Insulin Aspart (Novolog Vial Sliding Scale -) 1 vial SQ ACHS GRAYSON; Protocol ASSESSMENT/PLAN: 71 y/o female with a PMHx of ESRD on HD (T,TH,Sat), HTN, HLD, CAD s/p CABG, DM, Small bowel resection, CVA, ventral hernia presents after a syncopal episode and chest pain will be admitted to Tele. 1. Syncope - Orthostatics-- Sitting 173/88, Supine 169/82 - ABG noted above - Head CT pending official read - Brain MRI w/o Contrast, Carotid Doppler ordered - ECHO done previous admission (09/20) showed LVEF Normal, Moderate to severe MR , [place] TR, LA Severely dilated - Cardiology (Dr. Powell) consulted - Neurology (Dr. Daigle) Consulted 2. ESRD - Nephrology (Dr. Tyler) consulted - Lasix 160mg IV given stat - Daily weights, Strict I&Os 3. R/O ACS - Trop < 0.02 X1 - Initial EKG: NSR, Prolonged QTc 499 - Repeat EKG NSR, Prolonged QTc 495 - Repeat Trop ordered 4. Anemia - Most likely of chronic disease due to ESRD - was previously discharged with Hgb of 8.1 and Hct of 24.4 - TSH on last admission 0.70 - Ferritin, transferrin, TIBC, FE, Reticulocyte count, Serial FOBTs ordered 5. DM - ISS BGMs ACHS 6. HTN, HLD - Can continue home meds once reconciled 7. PPx - DVT: Heparin TID Dispo: Admit to Tele Visit type - Emergency Visit Emergency Visit: Yes ED Registration Date: 10/10/17 Care time: The patient presented to the Emergency Department on the above date and was hospitalized for further evaluation of their emergent condition. - New Patient This patient is new to me today: Yes Date on this admission: 10/10/17 - Critical Care Critical Care patient: No Hospitalist Screening - Colonoscopy Questionnaire Colonoscopy Questionnaire: Colonoscopy Questionnaire - Patient: 50 - 75 years old and never had a screening colonoscopy: Unknown History of colon or rectal polyps, or CA: Unknown History of IBD, Crohn's disease or UC: Unknown History of abdominal radiation therapy as a child: Unknown - Relative: 1 with colon or rectal CA, or polyps at age 60 or younger: Unknown Colon or rectal CA diagnosed at age 45 or younger: Unknown Multiple relatives with colon or rectal CA: Unknown - Outcome: Screening Result: Negative Screen
[2017-10-10] MEDS ORDERED: HEPARIN NA (PORCINE) 5,000 UNITS/ML 1ML VIAL SQ SCH (06:00)
[2017-10-10 06:44] VITALS: BMI 34.3
[2017-10-10] MEDS ORDERED: INSULIN SLIDING SCALE (NOVOLOG) 1 VIAL SQ SCH (07:00)
[2017-10-10 08:24] LABS: BASO % 1.2 % (0-2.0); EOS % 2.2 % (0-4.5); HEMATOCRIT 30.6 % (32.4-45.2); HEMOGLOBIN 9.7 GM/dL (10.7-15.3); LYMPH % 21.9 % (8-40); MCH 29.8 pg (25.7-33.7); MCHC 31.7 g/dl (32.0-36.0); MEAN PLT VOLUME 9.7 fl (7.5-11.1); MONO % 4.9 % (3.8-10.2); NEUT % 69.8 % (42.8-82.8); PLATELET COUNT 326 K/MM3 (134-434); RBC 3.25 M/mm3 (3.60-5.2); RDW 16.6 % (11.6-15.6); WHITE BLOOD COUNT 9.7 K/mm3 (4.0-10.0)
[2017-10-10 08:41] LABS: ALBUMIN 3.5 g/dl (3.4-5.0); ANION GAP 19 MMOL/L (8-16); CALCIUM 8.9 mg/dL (8.5-10.1); CHLORIDE 104 mmol/L (98-107); CO2 16 mmol/L (21-32); GLUCOSE,RANDOM 97 mg/dL (74-106); MAGNESIUM 3.1 mg/dL (1.8-2.4); PHOSPHOROUS 7.2 mg/dL (2.5-4.9); POTASSIUM 5.3 mmol/L (3.5-5.1); SGOT/AST 7 U/L (15-37); SGPT/ALT 9 U/L (12-78); SODIUM 139 mmol/L (136-145)
[2017-10-10 08:43] LABS: ALK PHOS 205 U/L (45-117); BILIRUBIN,TOTAL 0.7 mg/dL (0.2-1.0)
[2017-10-10] MEDS ORDERED: SODIUM CHLORIDE 250 ML IV PRN ×3 (08:46→10:00)
[2017-10-10] MEDS ORDERED: HEPARIN NA (PORCINE) 5,000 UNITS/ML 1ML VIAL IVPUSH ONE ×2 (08:46→09:05)
[2017-10-10 08:54] LABS: CHLORIDE 102 mmol/L (98-107); POTASSIUM 5.2 mmol/L (3.5-5.1); SODIUM 137 mmol/L (136-145)
[2017-10-10] MEDS ORDERED: ASPIRIN 325 MG TABLET PO ONE (08:57)
[2017-10-10] MEDS ORDERED: HEPARIN NA (PORCINE) 5,000 UNITS/ML 1ML VIAL IVPUSH PRN ×2 (09:05)
[2017-10-10] MEDS ORDERED: amLODIPine BESYLATE 10 MG TABLET (FP) PO ONE (09:13)
[2017-10-10 09:20] LABS: ALBUMIN 3.4 g/dl (3.4-5.0); ALK PHOS 201 U/L (45-117); ANION GAP 18 MMOL/L (8-16); BILIRUBIN,TOTAL 0.7 mg/dL (0.2-1.0); CALCIUM 8.6 mg/dL (8.5-10.1); CO2 17 mmol/L (21-32); GLUCOSE,RANDOM 92 mg/dL (74-106); PHOSPHOROUS 6.9 mg/dL (2.5-4.9); SGOT/AST 11 U/L (15-37); SGPT/ALT 8 U/L (12-78); TOT PROT 7.1 g/dl (6.4-8.2)
[2017-10-10 09:24] LABS: BLOOD UREA NITROGEN 120 mg/dL (7-18); CREATININE 8.6 mg/dL (0.55-1.02)
[2017-10-10 09:27] LABS: BLOOD UREA NITROGEN 121 mg/dL (7-18); CREATININE 8.5 mg/dL (0.55-1.02)
[2017-10-10 09:38] LABS: EOS % 2.1 % (0-4.5); HEMATOCRIT 30.1 % (32.4-45.2); HEMOGLOBIN 9.7 GM/dL (10.7-15.3); LYMPH % 18.1 % (8-40); MCH 29.9 pg (25.7-33.7); MCHC 32.2 g/dl (32.0-36.0); MEAN CELL VOLUME 92.8 fl (80-96); MEAN PLT VOLUME 9.2 fl (7.5-11.1); MONO % 4.9 % (3.8-10.2); NEUT % 73.9 % (42.8-82.8); PLATELET COUNT 350 K/MM3 (134-434); RBC 3.24 M/mm3 (3.60-5.2); RDW 16.8 % (11.6-15.6); WHITE BLOOD COUNT 10.5 K/mm3 (4.0-10.0)
[2017-10-10 10:00] LABS: INR 1.01 (0.83-1.09); PROTHROMBIN TIME (PATIENT) 11.4 SEC (9.7-13.0)
--- NOTE | 2017-10-10 11:03 | CON.CARD ---
Consult Consult Specialty:: Cardiology Referred by:: Hospitalist Reason for Consultation:: Chest pain, syncope - History of Present Illness Chief Complaint: syncope, chest pain History of Present Illness: 71 year old woman with pmh HTN, HLD, DMII, ESRD on HD, CAD s/p CABG 2004 [facility], pt reported cardiac cath within the past 1 year that showed no new obstructive CAD, SBO s/p resection, multiple recent ER presentations and admission for SOB and fluid overload now admitted with c/o episode of syncope preceded by chest pain, palpitations, lightheadedness. Pt noted to have significant chest pain this am and was thus transferred to telemetry. EKG was done and was abnormal with nonspecific findings. Pt seen and examined this am currently sleeping but when awoken c/o chest pain. no sob currently. no pnd, orthopnea. 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 Cardio/Vascular: Yes: CAD, CHF, HTN, IN, Hyperlipdemia Renal/: Yes: Renal Failure, Hemodialysis Psych: Yes: Anxiety Musculoskeletal: Yes: Chronic low back pain Endocrine: Yes: Diabetes Mellitus - Past Surgical History Past Surgical History: Yes: AV Fistula/Graft, CABG - Alcohol/Substance Use Hx Alcohol Use: No History of Substance Use: reports: None - Smoking History Smoking history: Never smoked Have you smoked in the past 12 months: No Aproximately how many cigarettes per day: 0 - Social History Usual Living Arrangement: With Child ADL: Independent History of Recent Travel: No Home Medications - Allergies Allergies/Adverse Reactions: Allergies Allergy/AdvReac Type Severity Reaction Status Date / Time No Known Allergies Allergy Verified 09/20/16 11:41 - Home Medications Home Medications: Ambulatory Orders Carvedilol 6.25 mg PO BID 09/20/16 Gabapentin 100 mg PO HS 09/20/16 Isoniazid 300 mg PO DAILY 09/20/16 Albuterol 2.5/Ipratropium 0.5 [Duoneb -] 1 amp NEB Q6H PRN #120 amp 09/26/17 Amlodipine Besylate [Norvasc -] 10 mg PO DAILY #30 tablet 09/26/17 Nebulizer [Aeroeclipse II] 1 each MC PRN PRN #1 each 09/26/17 Pantoprazole Sodium [Protonix] 40 mg PO DAILY #30 tablet. 09/26/17 Martin Baugh 50% (Tucks) [Tucks Pads -] 1 pad TP PRN PRN #30 pad 09/26/17 Acetaminophen [Tylenol] 650 mg PO Q6H PRN 09/27/17 Pyridoxine HCl (Vitamin B6) [Vitamin B-6] 100 mg PO DAILY 09/27/17 Family Disease History - Family Disease History Family History: Unable to Obtain Review of Systems - Review of Systems Constitutional: reports: Lethargy, Weakness. denies: No Symptoms, Chills, Diaphoresis, Fever, Loss of Appetite, Malaise, Night Sweats, Unintentional Wgt. Loss, Other Eyes: denies: No Symptoms, Blind Spots, Blurred Vision, Double Vision, Eye Pain , Floaters, Photophobia, Recent Change in Vision, Other HENT: denies: No Symptoms, Difficult Swallowing, Ear Discharge, Ear Pain, Epistaxis, Gingival Bleeding, Hearing Loss, Mouth Swelling, Nasal Congestion, Ocular Prosthesis, Throat Pain, Toothache, Ringing in Ears, Other Neck: denies: No Symptoms, Decreased ROM, Lumps, Pain on Movement, Stiffness, Swollen Glands, Tenderness, Other Cardiovascular: reports: Chest Pain, Palpitations. denies: No Symptoms, Edema, Shortness of Breath, Other Respiratory: reports: SOB on Exertion. denies: No Symptoms, Cough, Exercise Intolerance, Hemoptysis, Orthopnea, PND, Snoring, SOB, Wheezing, Other Gastrointestinal: denies: No Symptoms, Abdominal Pain, Bloating, Constipation, Diarrhea, Dysphagia, Indigestion, Melena, Nausea, Rectal Bleeding, Vomiting, Vomiting Blood, Other Genitourinary: denies: No Symptoms, Burning, Discharge, Dysuria, Flank Pain, Frequency, Hematuria, Incontinence, Lesions, Menses, Pain, Testicular Mass, Testicular Pain, Testicular Swelling, Urgency, Vaginal Bleeding, Other Breasts: denies: No Symptoms Reported, See HPI, Breast Implants, Discharge from Nipple, Lumps, Pain, Skin Changes, Other Musculoskeletal: denies: No Symptoms, Back Pain, Crepitus, Decreased ROM, Extremity Pain, Joint Pain, Joint Swelling, Muscle Pain, Muscle Cramps, Muscle Weakness, Other Integumentary: denies: No Symptoms, Blister, Bruising, Change in Color, Eczema, Erythema, Incision, Lesions, Lump, Pallor, Pruritis, Rash, Wound, Other Neurological: reports: Change in LOC, Syncope. denies: No Symptoms, Change in Speech, Confusion, Dizziness, Headache, Incoordination, Numbness, Parasthesia, Pre-Existing Deficit, Seizure, Tremors, Unsteady Gait, Weakness, Other Endocrine: denies: No Symptoms, Excessive Sweating, Flushing, Increased Hunger, Increased Thirst, Intolerance to Cold, Intolerance to Heat, Unexplained Weight Gain, Unexplained Weight Loss, Other Hematology/Lymphatic: denies: No Symptoms, Easily Bruised, Excessive Bleeding, Swollen Glands, Other Psychiatric: denies: No Symptoms, Altered Sleep Pattern, Anxiety, Depression, Hallucinations, Panic, Paranoia, Suicidal, Other - Risk Factors Known Risk Factors: Yes: Age, Hypercholesterolemia, Hypertension. No: Diabetes Mellitus, Family History, Gender, Physical Inactivity, Prior IN /Emb Stroke, Race, Smoking, Other Vital Signs: Vital Signs Temperature 97.9 F 10/10/17 09:48 Pulse Rate 74 10/10/17 10:47 Respiratory Rate 20 10/10/17 10:47 Blood Pressure 180/72 10/10/17 10:47 O2 Sat by Pulse Oximetry (%) 98 10/10/17 10:12 Constitutional: Yes: Well Nourished, No Distress, Calm Eyes: Yes: Conjunctiva Clear, EOM Intact HENT: Yes: Atraumatic, Normocephalic Neck: Yes: Supple, Trachea Midline Respiratory: Yes: Regular, CTA Bilaterally. No: Rales, Rhonchi, SOB, Wheezes Gastrointestinal: Yes: Normal Bowel Sounds, Soft. No: Distention, Tenderness Cardiovascular: Yes: Regular Rate and Rhythm. No: Bradycardia, Tachycardia, Pulse Irregular, Gallop, Rub, Varicosities JVD: No Carotid Bruit: No PMI: Non-Displaced Heart Sounds: Yes: S1, S2. No: Split S2, S3, S4, Clicks, Gallop Murmur: No: Systolic Murmur, Diastolic Murmur Musculoskeletal: Yes: WNL Extremities: Yes: WNL Edema: No Peripheral Pulses WNL: Yes Peripheral Pulses: 2+ Left Doralis Pedis, 2+ Right Dorsalis Pedis Neurological: Yes: Alert, Oriented Psychiatric: Yes: Alert, Oriented - Other Data Labs, Other Data: CBC, BMP 10/10/17 09:15 10/10/17 08:08 INR, PTT INR 1.01 (0.83-1.09) 10/10/17 09:15 Troponin, BNP 10/09/17 10/10/17 10/10/17 22:46 07:00 08:08 Troponin I < 0.02 0.02 < 0.02 Troponin, BNP 10/09/17 10/10/17 10/10/17 22:46 07:00 08:08 Troponin I < 0.02 0.02 < 0.02 ekg-nsr, nsst Echo: Report Reviewed Prior Cardiac Procedures: CABG, Cardiac Catheterization Imaging - Results Chest X-ray: Report Reviewed, Image Reviewed EKG: Report Reviewed, Image Reviewed Other: Report Reviewed, Image Reviewed (tele-nsr, no arrhythmias since moving to tele) Assessment/Plan 71 year old woman with pmh HTN, HLD, DMII, ESRD on HD, CAD s/p CABG 2004 [facility], pt reported cardiac cath within the past 1 year that showed no new obstructive CAD, SBO s/p resection, multiple recent ER presentations and admission for SOB and fluid overload now admitted with c/o episode of syncope preceded by chest pain, palpitations, lightheadedness. Pt noted to have significant chest pain this am and was thus transferred to telemetry. EKG was done and was abnormal with nonspecific findings. Pt seen and examined this am currently sleeping but when awoken c/o chest pain. no sob currently. no pnd, orthopnea. Chest pain/palpitations/lightheadedness/syncope-concerning for possible pulmonary embolism -nsst EKG abnormalities -evaluation and treatment for pulmonary embolism in progress -unlikely ACS, recent cardiac cath within the last year at [facility] reportedly showed no sig new obstructive CAD and no PCI was performed -cardiac enzymes wnl x 1 this am, would cont to trend serial cardiac enzymes and ekgs -echo 09/20/17 showed normal LV and RV systolic function and echo 02/2017 showed normal LV and RV size and function and no significant valvular abnl -can repeat echo to evaluate RV size and function and re-evaluate LV systolic function -please request last cardiac cath report from [facility] for review -Volume removal for chronic diastolic CHF with HD as per renal -cont tele monitoring
[2017-10-10] MEDS: HEPARIN - 25,000 UNIT in SODIUM CHLORIDE 495 ML IV SCH (11:32)
[2017-10-10] MEDS: INSULIN SLIDING SCALE (NOVOLOG) 1 VIAL SQ SCH ×3 (13:05→21:35)
--- NOTE | 2017-10-10 13:16 | PN ---
Physical Exam: SUBJECTIVE: Patient seen and examined this AM. Sign out from admitting team was that pt was A&O, though pt lethargic and somnolent on exam and unable to give a good history other than saying she felt like she was going to suffocate and had intense chest pain. Denied fevers, chills, n/v/d. OBJECTIVE: Vital Signs Period Temp Pulse Resp BP Sys/Rodriguez Pulse Ox Last 24 Hr 97.7 F-98.6 F 72-81 18-20 136-187/61-82 97-99 GENERAL: Somnolent on exam, though arousable to voice, in mild distress HEAD: Normocephalic, atraumatic. EYES: PERRL, no scleral icterus EARS, NOSE, THROAT: oropharynx clear without exudates. Moist mucous membranes. NECK: supple without lymphadenopathy LUNGS: Bibasilar crackles noted HEART: Regular rate and rhythm, normal S1 and S2 without murmur ABDOMEN: Soft, mild tenderness to palpation, reducible ventral hernia, normoactive bowel sounds MUSCULOSKELETAL: No bony deformities or tenderness. EXTREMITIES: 2+ pulses, warm, well-perfused. No peripheral edema. NEUROLOGICAL: Cranial nerves II-XII grossly intact. SKIN: Warm, dry, no rashes or lesions noted Laboratory Results - last 24 hr 10/09/17 10/09/17 10/09/17 22:39 22:46 22:46 WBC 9.2 RBC 2.93 L Hgb 9.0 L Hct 27.1 L MCV 92.5 MCH 30.9 MCHC 33.4 RDW 17.2 H Plt Count 357 D MPV 9.2 Absolute Neuts (auto) 6.7 Neutrophils % 73.0 Lymphocytes % 17.7 Monocytes % 5.8 Eosinophils % 2.0 Basophils % 1.5 Nucleated RBC % 0 Retic Count PT with INR INR PTT (Actin FS) Puncture Site ABG pH ABG pCO2 at Pt Temp ABG pO2 at Pt Temp ABG HCO3 ABG O2 Sat (Measured) ABG O2 Content ABG Base Excess Francisco Test O2 Delivery Device Oxygen Flow Rate Sodium 140 Potassium 4.7 Chloride 102 Carbon Dioxide 21 Anion Gap 17 H BUN 115 H* D Creatinine 8.1 H* Creat Clearance w eGFR 4.86 POC Glucometer Random Glucose 116 H Lactic Acid 0.6 Calcium 8.1 L Phosphorus 5.4 H Magnesium 2.8 H Ferritin Total Bilirubin 0.7 AST 12 L ALT 9 L Alkaline Phosphatase 188 H D Creatine Kinase Troponin I Total Protein 6.8 Albumin 3.2 L [facility] 10/09/17 10/10/17 10/10/17 22:46 03:05 06:54 WBC RBC Hgb Hct MCV MCH MCHC RDW Plt Count MPV Absolute Neuts (auto) Neutrophils % Lymphocytes % Monocytes % Eosinophils % Basophils % Nucleated RBC % Retic Count PT with INR INR PTT (Actin FS) Puncture Site Left radial ABG pH 7.31 L D ABG pCO2 at Pt Temp 33.0 L D ABG pO2 at Pt Temp 103.0 H D ABG HCO3 16.1 L ABG O2 Sat (Measured) 97.6 ABG O2 Content 12.1 L ABG Base Excess -8.9 L Francisco Test Positive O2 Delivery Device Room air Oxygen Flow Rate No Sodium Potassium Chloride Carbon Dioxide Anion Gap BUN Creatinine Creat Clearance w eGFR POC Glucometer 111 Random Glucose Lactic Acid Calcium Phosphorus Magnesium Ferritin Total Bilirubin AST ALT Alkaline Phosphatase Creatine Kinase 38 Troponin I < 0.02 Total Protein Albumin [facility] 10/10/17 10/10/17 10/10/17 07:00 07:00 07:00 WBC 9.7 RBC 3.25 L Hgb 9.7 L Hct 30.6 L MCV 94.0 MCH 29.8 MCHC 31.7 L RDW 16.6 H Plt Count 326 MPV 9.7 Absolute Neuts (auto) 6.8 Neutrophils % 69.8 Lymphocytes % 21.9 D Monocytes % 4.9 Eosinophils % 2.2 Basophils % 1.2 Nucleated RBC % 0 Retic Count PT with INR INR PTT (Actin FS) Puncture Site ABG pH ABG pCO2 at Pt Temp ABG pO2 at Pt Temp ABG HCO3 ABG O2 Sat (Measured) ABG O2 Content ABG Base Excess Francisco Test O2 Delivery Device Oxygen Flow Rate Sodium 139 Potassium 5.3 H Chloride 104 Carbon Dioxide 16 L Anion Gap 19 H BUN 121 H* Creatinine 8.5 H* Creat Clearance w eGFR 4.60 POC Glucometer Random Glucose 97 Lactic Acid Calcium 8.9 Phosphorus 7.2 H Magnesium 3.1 H Ferritin Total Bilirubin 0.7 AST 7 L ALT 9 L Alkaline Phosphatase 205 H D Creatine Kinase Troponin I 0.02 Total Protein 7.0 Albumin 3.5 TSH 10/10/17 10/10/1718 07:00 08:08 09:15 WBC 10.5 H RBC 3.24 L Hgb 9.7 L Hct 30.1 L MCV 92.8 MCH 29.9 MCHC 32.2 RDW 16.8 H Plt Count 350 MPV 9.2 Absolute Neuts (auto) 7.8 Neutrophils % 73.9 Lymphocytes % 18.1 Monocytes % 4.9 Eosinophils % 2.1 Basophils % 1.0 Nucleated RBC % 0 Retic Count PT with INR INR PTT (Actin FS) Puncture Site ABG pH ABG pCO2 at Pt Temp ABG pO2 at Pt Temp ABG HCO3 ABG O2 Sat (Measured) ABG O2 Content ABG Base Excess Francisco Test O2 Delivery Device Oxygen Flow Rate Sodium 137 Potassium 5.2 H Chloride 102 Carbon Dioxide 17 L Anion Gap 18 H BUN 120 H* Creatinine 8.6 H* Creat Clearance w eGFR 4.54 POC Glucometer Random Glucose 92 Lactic Acid Calcium 8.6 Phosphorus 6.9 H Magnesium 3.0 H Ferritin Cancelled 642.9 H Total Bilirubin 0.7 AST 11 L ALT 8 L Alkaline Phosphatase 201 H Creatine Kinase 79 Troponin I < 0.02 Total Protein 7.1 Albumin 3.4 TSH 0.64 10/10/17 10/10/17 10/10/17 09:15 09:15 09:15 WBC RBC Hgb Hct MCV MCH MCHC RDW Plt Count MPV Absolute Neuts (auto) Neutrophils % Lymphocytes % Monocytes % Eosinophils % Basophils % Nucleated RBC % Retic Count PT with INR 11.40 INR 1.01 PTT (Actin FS) 35.3 Puncture Site ABG pH ABG pCO2 at Pt Temp ABG pO2 at Pt Temp ABG HCO3 ABG O2 Sat (Measured) ABG O2 Content ABG Base Excess Francisco Test O2 Delivery Device Oxygen Flow Rate Sodium Potassium Chloride Carbon Dioxide Anion Gap BUN Creatinine Creat Clearance w eGFR POC Glucometer Random Glucose Lactic Acid 0.8 Calcium Phosphorus Magnesium Ferritin Total Bilirubin AST ALT Alkaline Phosphatase Creatine Kinase Troponin I Total Protein Albumin TSH 10/10/17 10/10/17 09:25 12:14 WBC RBC Hgb Hct MCV MCH MCHC RDW Plt Count MPV Absolute Neuts (auto) Neutrophils % Lymphocytes % Monocytes % Eosinophils % Basophils % Nucleated RBC % Retic Count 3.60 H D PT with INR INR PTT (Actin FS) Puncture Site ABG pH ABG pCO2 at Pt Temp ABG pO2 at Pt Temp ABG HCO3 ABG O2 Sat (Measured) ABG O2 Content ABG Base Excess Francisco Test O2 Delivery Device Oxygen Flow Rate Sodium Potassium Chloride Carbon Dioxide Anion Gap BUN Creatinine Creat Clearance w eGFR POC Glucometer 105.30314 Random Glucose Lactic Acid Calcium Phosphorus Magnesium Ferritin Total Bilirubin AST ALT Alkaline Phosphatase Creatine Kinase Troponin I Total Protein Albumin TSH Active Medications Generic Name Dose Route Start Last Admin Trade Name Freq PRN Reason Stop Dose Admin Epoetin Edil 6,000 unit 10/10/17 08:46 Epogen - IVPUSH 10/10/17 08:47 ONCE ONE Heparin Sodium (Porcine) 500 unit 10/10/17 08:46 Heparin - IVPUSH 10/10/17 08:47 ONCE ONE Heparin Sodium (Porcine) 3,100 unit 10/10/17 09:05 Heparin - 40 unit/kg (3100 unit) IVPUSH PRN PRN For aPTT 35 to 45 seconds Heparin Sodium (Porcine) 6,200 unit 10/10/17 09:05 Heparin - 80 unit/kg (6200 unit) IVPUSH PRN PRN aPTT <35 seconds Heparin Sodium (Porcine) 25, 500 mls @ 27.77 mls/hr 10/10/17 10:15 10/10/17 11:32 000 unit/ Sodium Chloride IV 18 unit/kg/hr TITR GRAYSON 27.77 mls/hr Administration Protocol 18 UNIT/KG/HR Sodium Chloride 250 mls @ 3,000 mls/hr 10/10/17 08:46 Normal Saline - IV PRN PRN Hypotension during Dialysis Insulin Aspart 1 vial 10/10/17 11:00 10/10/17 13:05 Novolog Vial Sliding Scale - SQ Not Given ACHS [facility] Protocol ASSESSMENT/PLAN: 71 yo female with PMH of HTN, HLD, DMII, ESRD on HD (T, Th, Sat), CAD s/p CABG 2004, with PCI in the last year, admitted for chest pain and syncopal episode. Acute Metabolic Encephalopathy -Pt likely Uremic Encephalopathy secondary to ESRD, BUN has not been this elevated on previous admissions -Some lethargy and somnolence noted on exam -Emergent HD today, will reevaluate -Recheck BMP in AM -Head CT negative for acute pathology -TSH wnl Chest Pain and SOB -Could possibly be due to Pulmonary Embolism ECG noted with new S1Q3T3 Troponins negative X2 Emergenct HD required, so unable to wait for CTA with contrast -Heparin drip started -B/l LE Duplex noted: no signs of DVT in either leg -Will consider CTA timed with next dialysis vs VQ scan ESRD on HD -Pt likely overloaded and uremic as above, HD Today, will reevaluate -Nephrology consult appreciated NIDDM -Pt not on insulin or any known hyperglycemia medications at home -BGMs ACHS with insulin sliding scale for glycemic control if elevated HTN urgency -Restart home meds as pt b.p still elevated after dialysis -Norvasc 10 mg PO Daily -Coreg 6.25 mg PO BID Normocytic Anemia -Likely due to chronic renal failure though iron studies pending -Procrit 6000 Units IV Once -Will monitor H/H HLD -Lipitor 40 mg PO HS DVT Prophylaxis -Pt on Heparin Drip FEN -Fluids: -Electrolytes: K+ 5.2, Phos 6.9, Mg 3, HD Today, BMP in AM -Nutrition: Diabetic/Sodium Diet Disposition Monitor in Telemetry Visit type - Emergency Visit Emergency Visit: Yes ED Registration Date: 10/10/17 Care time: The patient presented to the Emergency Department on the above date and was hospitalized for further evaluation of their emergent condition. - New Patient This patient is new to me today: Yes Date on this admission: 10/10/17 - Critical Care Critical Care patient: Yes Total Critical Care Time (in minutes): 40 Critical Care Statement: The care of this patient involved high complexity decision making to prevent further life threatening deterioration of the patient 's condition and/or to evaluate & treat vital organ system(s) failure or risk of failure.
--- NOTE | 2017-10-10 13:32 | PN ---
Teaching Attending Note Name of Resident: Javon Harrell ATTENDING PHYSICIAN STATEMENT I saw and evaluated the patient. I reviewed the resident's note and discussed the case with the resident. I agree with the resident's findings and plan as documented. SUBJECTIVE:states its difficult to breathe. was able to tolerate total HD session on monday (3H but states she typically does 3H). had episode this AM with sudden onset of "crushing CP" with difficulty breathing. self resolved. denies Cp, fever, chills, cough, n/v/c/D OBJECTIVE: Last Vital Signs Temp Pulse Resp BP Pulse Ox 97.9 F 72 18 187/76 98 10/10/17 09:48 10/10/17 11:37 10/10/17 11:37 10/10/17 11:37 10/10/17 10:12 General, lethargic but easily arrousable A&O x3 CV S1 S2 +murmur Lungs decrease bases Abdomen +hernia. diffuse tenderness Extremities no pedal edema. +L calf tenderness negative Kristal. +RUE palpable thrill ASSESSMENT AND PLAN: 71yo F with PMH ESRD on HD (TTS), HTN, CAD, s/p CABG, SBO s/p resection and dyslipidemia presented to the ER for witnessed syncope and difficulty breathing. 1. Acute Metabolic encephalopathy- likely uremic induced. elevated BUN. will need emergent HD. is more alert now then initially reported by RN this AM. called nephro who agrees to HD at this time. moves all 4 extremities and oriented x3. initial Head Ct negative for acute pathology. TSH WNL. will obtain Bcx to r/o infectious cause. CXR negative and pt is anuric 2. CP-possible due to elevated BP vs PE. low concern for ACS given normal cath earlier this year and negative troponins x2. possible PE given EKG Changes ( s1q3t3) although no other risk factors. unable to get CTA at this time given need for emergent HD. will check doppler of the legs. and echo. start hep ggt for suspected PE. consider d/c once able to get CTA and if negative 3. HTN urgency- SBP 190's. will give home medications and re-evaluate. will titrate medications as necessary 4. Normocytic anemia- no signs of bleeding. iron studies pending. no indication for transfusion. monitor 5. AG acidosis- due to uremia. emergent HD. will monitor 6. Hyperphosphatemia- will d/w renal about starting phoslo 7. Hypermagnesemia 8. DVT ppx- hep ggt 9. will transfer patient to tele for continuous cardiac monitoring
--- NOTE | 2017-10-10 14:33 | EKG ---
Test Reason : Blood Pressure : / mmHG Vent. Rate : 085 BPM Atrial Rate : 085 BPM P-R Int : 206 ms QRS Dur : 100 ms QT Int : 400 ms P-R-T Axes : 042 040 -18 degrees QTc Int : 476 ms NORMAL SINUS RHYTHM NONSPECIFIC ST ABNORMALITY ABNORMAL ECG WHEN COMPARED WITH ECG OF 10-OCT-2017 03:11, NO SIGNIFICANT CHANGE WAS FOUND Confirmed by Bertin Matos ([id number]) on 10/10/2017 2:33:24 PM Referred By: Karina NASCIMENTO Confirmed By:Bertin Matos
--- NOTE | 2017-10-10 14:33 | EKG ---
Test Reason : Blood Pressure : / mmHG Vent. Rate : 083 BPM Atrial Rate : 083 BPM P-R Int : 206 ms QRS Dur : 100 ms QT Int : 422 ms P-R-T Axes : 032 021 -01 degrees QTc Int : 495 ms NORMAL SINUS RHYTHM NONSPECIFIC ST AND T WAVE ABNORMALITY PROLONGED QT ABNORMAL ECG WHEN COMPARED WITH ECG OF 09-OCT-2017 22:05, NO SIGNIFICANT CHANGE WAS FOUND Confirmed by Bertin Matos ([id number]) on 10/10/2017 2:33:38 PM Referred By: Confirmed By:Bertin Matos
--- NOTE | 2017-10-10 14:49 | CONSULT ---
Consult Consult Specialty:: Nephrology Reason for Consultation:: ESRD - History of Present Illness Chief Complaint: syncope History of Present Illness: Pt is a 71 year old female with pmhx of ESRD (TTS), HLD, HTN, CAD, DM and SBO who presents to the ER after having a syncopal episode. Pt tried to sit up then passed out. She complains of shortness of breath. He did have chest discomfort yesterday. She denies chest pain at the moment. She is due for HD today. She is on a TTS schedule. - History Source History Provided By: Patient, Medical Record - Past Medical History BARK FITTER: Yes: CVA Cardio/Vascular: Yes: CAD, CHF, HTN, UT, Hyperlipdemia Renal/: Yes: Renal Failure, Hemodialysis Psych: Yes: Anxiety Musculoskeletal: Yes: Chronic low back pain Endocrine: Yes: Diabetes Mellitus - Past Surgical History Past Surgical History: Yes: AV Fistula/Graft, CABG - Alcohol/Substance Use Hx Alcohol Use: No History of Substance Use: reports: None - Smoking History Smoking history: Never smoked Have you smoked in the past 12 months: No Aproximately how many cigarettes per day: 0 - Social History Usual Living Arrangement: With Child ADL: Independent History of Recent Travel: No Home Medications - Allergies Allergies/Adverse Reactions: Allergies Allergy/AdvReac Type Severity Reaction Status Date / Time No Known Allergies Allergy Verified 09/20/16 11:41 - Home Medications Home Medications: Ambulatory Orders Carvedilol 6.25 mg PO BID 09/20/16 Gabapentin 100 mg PO HS 09/20/16 Isoniazid 300 mg PO DAILY 09/20/16 Albuterol 2.5/Ipratropium 0.5 [Duoneb -] 1 amp NEB Q6H PRN #120 amp 09/26/17 Amlodipine Besylate [Norvasc -] 10 mg PO DAILY #30 tablet 09/26/17 Nebulizer [Aeroeclipse II] 1 each MC PRN PRN #1 each 09/26/17 Pantoprazole Sodium [Protonix] 40 mg PO DAILY #30 tablet. 09/26/17 Martin Baugh 50% (Tucks) [Tucks Pads -] 1 pad TP PRN PRN #30 pad 09/26/17 Acetaminophen [Tylenol] 650 mg PO Q6H PRN 09/27/17 Pyridoxine HCl (Vitamin B6) [Vitamin B-6] 100 mg PO DAILY 09/27/17 Atorvastatin Ca [Lipitor] 40 mg PO DAILY 10/10/17 Family Disease History - Family Disease History Family History: Denies Review of Systems - Review of Systems Constitutional: reports: Malaise. denies: Chills, Fever HENT: reports: No Symptoms Neck: reports: No Symptoms Cardiovascular: reports: Chest Pain, Edema, Shortness of Breath Respiratory: reports: SOB, SOB on Exertion Gastrointestinal: reports: No Symptoms Genitourinary: reports: No Symptoms Musculoskeletal: reports: No Symptoms Neurological: reports: Change in LOC Endocrine: reports: No Symptoms Hematology/Lymphatic: reports: No Symptoms Physical Exam Vital Signs: Vital Signs Temperature 97.9 F 10/10/17 09:48 Pulse Rate 74 10/10/17 13:43 Respiratory Rate 18 10/10/17 13:43 Blood Pressure 171/66 10/10/17 13:43 O2 Sat by Pulse Oximetry (%) 98 10/10/17 10:12 Constitutional: Yes: Calm Eyes: Yes: Conjunctiva Clear HENT: Yes: Atraumatic Cardiovascular: Yes: S1, S2 Respiratory: Yes: CTA Bilaterally, On Nasal O2, Rhonchi Gastrointestinal: Yes: Soft Renal/: Yes: WNL Musculoskeletal: Yes: WNL Edema: Yes Edema: LLE: 1+, RLE: 1+ Neurological: Yes: Oriented Psychiatric: Yes: Oriented Labs: CBC, BMP 10/10/17 09:15 10/10/17 08:08 Imaging - Results Chest X-ray: Report Reviewed Problem List - Problems (1) ESRD (end stage renal disease) Code(s): N18.6 - END STAGE RENAL DISEASE (2) Syncope Code(s): R55 - SYNCOPE AND COLLAPSE Qualifiers: Syncope type: unspecified Qualified Code(s): R55 - Syncope and collapse (3) HLD (hyperlipidemia) Code(s): E78.5 - HYPERLIPIDEMIA, UNSPECIFIED (4) HTN (hypertension) Code(s): I10 - ESSENTIAL (PRIMARY) HYPERTENSION Assessment/Plan Current Medications Generic Name Dose Route Start Last Admin Trade Name Freq PRN Reason Stop Dose Admin Epoetin Edil 6,000 unit 10/10/17 08:46 Epogen - IVPUSH 10/10/17 08:47 ONCE ONE Heparin Sodium (Porcine) 500 unit 10/10/17 08:46 Heparin - IVPUSH 10/10/17 08:47 ONCE ONE Heparin Sodium (Porcine) 3,100 unit 10/10/17 09:05 Heparin - 40 unit/kg (3100 unit) IVPUSH PRN PRN For aPTT 35 to 45 seconds Heparin Sodium (Porcine) 6,200 unit 10/10/17 09:05 Heparin - 80 unit/kg (6200 unit) IVPUSH PRN PRN aPTT <35 seconds Heparin Sodium (Porcine) 25, 500 mls @ 27.77 mls/hr 10/10/17 10:15 10/10/17 11:32 000 unit/ Sodium Chloride IV 18 unit/kg/hr TITR GRAYSON 27.77 mls/hr Administration Protocol 18 UNIT/KG/HR Sodium Chloride 250 mls @ 3,000 mls/hr 10/10/17 08:46 Normal Saline - IV PRN PRN Hypotension during Dialysis Insulin Aspart 1 vial 10/10/17 11:00 10/10/17 13:05 Novolog Vial Sliding Scale - SQ Not Given ACHS [facility] Protocol Laboratory Tests 10/09/17 10/10/17 10/10/17 22:46 07:00 08:08 Troponin I < 0.02 0.02 < 0.02 Impression 1. ESRD 2. dyspnea 3. CAD 4. HTN 5. DM 6. anemia 7. syncope 8. chest pain 9. hyperkalemia Plan - will arrange for HD today at bedside - will treat potassium with HD - cardio eval - monitor vitals - orhtostatic vitals once more stable - will follow Dr Mosquera
--- NOTE | 2017-10-10 16:28 | EKG ---
Test Reason : Blood Pressure : / mmHG Vent. Rate : 085 BPM Atrial Rate : 085 BPM P-R Int : 194 ms QRS Dur : 094 ms QT Int : 420 ms P-R-T Axes : 023 038 021 degrees QTc Int : 499 ms NORMAL SINUS RHYTHM PROLONGED QT ABNORMAL ECG WHEN COMPARED WITH ECG OF 26-SEP-2017 15:11, T WAVE INVERSION NO LONGER EVIDENT IN LATERAL LEADS QT HAS LENGTHENED Confirmed by Bertin Matos ([id number]) on 10/10/2017 4:27:50 PM Referred By: Confirmed By:Bertin Matos
[2017-10-10] MEDS ORDERED: EPOETIN ALFA 3,000 UNIT/1 ML ML IVPUSH ONE (17:00)
[2017-10-10] MEDS ORDERED: WITCH HAZEL 50% (TUCKS) 40 PAD/JAR PAD TP PRN (17:58)
[2017-10-10] MEDS ORDERED: ALBUTEROL SO4 2.5/IPRATROPIUM 0.5 INH SOL 3 ML VIAL.NEB. NEB PRN (17:58)
[2017-10-10] MEDS ORDERED: FAMOTIDINE 20 MG/50 ML IVPB 20 MG/50 ML MG IVPB ONE (20:35)
[2017-10-10] MEDS: CARVEDILOL 6.25 MG TABLET (FP) PO SCH (21:16)
[2017-10-10] MEDS: ATORVASTATIN CA 40 MG TABLET (FP) PO SCH (21:16)
[2017-10-10] MEDS: GABAPENTIN 100 MG CAPSULE (FP) PO SCH (21:16)
[2017-10-11] MEDS: ACETAMINOPHEN 325 MG TABLET (FP) PO PRN (00:15)
[2017-10-11 06:06] LABS: SERUM IRON SATURATION 15 % (15-55); TOTAL IRON BINDING CAPACITY 241 ug/dL (250-450); UIBC 204 ug/dL (118-369)
[2017-10-11 06:21] LABS: BASO % 0.8 % (0-2.0); EOS % 2.9 % (0-4.5); HEMATOCRIT 26.6 % (32.4-45.2); HEMOGLOBIN 8.7 GM/dL (10.7-15.3); LYMPH % 20.7 % (8-40); MCHC 32.7 g/dl (32.0-36.0); MEAN CELL VOLUME 91.9 fl (80-96); NEUT % 68.6 % (42.8-82.8); PLATELET COUNT 309 K/MM3 (134-434); RBC 2.89 M/mm3 (3.60-5.2); RDW 16.8 % (11.6-15.6)
[2017-10-11] MEDS: INSULIN SLIDING SCALE (NOVOLOG) 1 VIAL SQ SCH ×2 (06:27→11:47)
[2017-10-11 06:48] LABS: CHLORIDE 100 mmol/L (98-107); POTASSIUM 4.1 mmol/L (3.5-5.1); SODIUM 140 mmol/L (136-145)
[2017-10-11 07:25] LABS: ANION GAP 13 MMOL/L (8-16); BLOOD UREA NITROGEN 50 mg/dL (7-18); CALCIUM 8.5 mg/dL (8.5-10.1); CO2 27 mmol/L (21-32); CREATININE 4.7 mg/dL (0.55-1.02); GLUCOSE,RANDOM 122 mg/dL (74-106); MAGNESIUM 2.4 mg/dL (1.8-2.4); PHOSPHOROUS 5.4 mg/dL (2.5-4.9)
[2017-10-11] MEDS ORDERED: PT OWN MED DRAWER 7, Y5N ONE (08:21)
--- NOTE | 2017-10-11 09:35 | PN ---
Physical Exam: SUBJECTIVE: Patient seen and examined this AM. She says she is feeling a little better than yesterday, though she denies any Headache, confusion, chest pain, SOB, cough. She does mention that she had some minimal blood noted in some phlegm. She was instructed to save the sample if this happens again. She does mention that she is having a little more abdominal pain today with her hernia. OBJECTIVE: Vital Signs Period Temp Pulse Resp BP Sys/Rodriguez Pulse Ox Last 24 Hr 97.4 F-98.1 F 69-96 16-24 99-187/63-86 95-100 GENERAL: Alert and oriented today much more than yesterday HEAD: Normocephalic, atraumatic. EYES: PERRL, no scleral icterus EARS, NOSE, THROAT: oropharynx clear without exudates. Moist mucous membranes. NECK: supple without lymphadenopathy LUNGS: Bibasilar crackles noted, improved from yesterday HEART: Regular rate and rhythm, normal S1 and S2 without murmur ABDOMEN: Soft, mild tenderness to palpation, reducible ventral hernia, normoactive bowel sounds MUSCULOSKELETAL: No bony deformities or tenderness. EXTREMITIES: 2+ pulses, warm, well-perfused. No peripheral edema. NEUROLOGICAL: Cranial nerves II-XII grossly intact. Normal speech today SKIN: Warm, dry, no rashes or lesions noted Laboratory Results - last 24 hr 10/10/17 10/10/17 10/10/17 07:00 07:00 08:08 WBC RBC Hgb Hct MCV MCH MCHC RDW Plt Count MPV Absolute Neuts (auto) Neutrophils % Lymphocytes % Monocytes % Eosinophils % Basophils % Nucleated RBC % Retic Count PT with INR INR PTT (Actin FS) Sodium 139 137 Potassium 5.3 H 5.2 H Chloride 104 102 Carbon Dioxide 16 L 17 L Anion Gap 19 H 18 H BUN 121 H* 120 H* Creatinine 8.5 H* 8.6 H* Creat Clearance w eGFR 4.60 4.54 POC Glucometer Random Glucose 97 92 Lactic Acid Calcium 8.9 8.6 Phosphorus 7.2 H 6.9 H Magnesium 3.1 H 3.0 H Iron 37 TIBC 241 L Iron Saturation 15 Ferritin 642.9 H Total Bilirubin 0.7 0.7 AST 7 L 11 L ALT 9 L 8 L Alkaline Phosphatase 205 H D 201 H Creatine Kinase 79 Troponin I < 0.02 Total Protein 7.0 7.1 Albumin 3.5 3.4 TSH 0.64 10/10/17 10/10/17 10/10/17 09:15 09:15 09:15 WBC 10.5 H RBC 3.24 L Hgb 9.7 L Hct 30.1 L MCV 92.8 MCH 29.9 MCHC 32.2 RDW 16.8 H Plt Count 350 MPV 9.2 Absolute Neuts (auto) 7.8 Neutrophils % 73.9 Lymphocytes % 18.1 Monocytes % 4.9 Eosinophils % 2.1 Basophils % 1.0 Nucleated RBC % 0 Retic Count PT with INR 11.40 INR 1.01 PTT (Actin FS) Sodium Potassium Chloride Carbon Dioxide Anion Gap BUN Creatinine Creat Clearance w eGFR POC Glucometer Random Glucose Lactic Acid 0.8 Calcium Phosphorus Magnesium Iron TIBC Iron Saturation Ferritin Total Bilirubin AST ALT Alkaline Phosphatase Creatine Kinase Troponin I Total Protein Albumin [facility] 10/10/17 10/10/17 10/10/17 09:15 09:25 12:14 WBC RBC Hgb Hct MCV MCH MCHC RDW Plt Count MPV Absolute Neuts (auto) Neutrophils % Lymphocytes % Monocytes % Eosinophils % Basophils % Nucleated RBC % Retic Count 3.60 H D PT with INR INR PTT (Actin FS) 35.3 Sodium Potassium Chloride Carbon Dioxide Anion Gap BUN Creatinine Creat Clearance w eGFR POC Glucometer 105.65445 Random Glucose Lactic Acid Calcium Phosphorus Magnesium Iron TIBC Iron Saturation Ferritin Total Bilirubin AST ALT Alkaline Phosphatase Creatine Kinase Troponin I Total Protein Albumin TSH 10/10/17 10/10/17 10/10/17 16:40 18:06 21:34 WBC RBC Hgb Hct MCV MCH MCHC RDW Plt Count MPV Absolute Neuts (auto) Neutrophils % Lymphocytes % Monocytes % Eosinophils % Basophils % Nucleated RBC % Retic Count PT with INR INR PTT (Actin FS) 298.3 H Sodium Potassium Chloride Carbon Dioxide Anion Gap BUN Creatinine Creat Clearance w eGFR POC Glucometer 132.37509 122.64176 Random Glucose Lactic Acid Calcium Phosphorus Magnesium Iron TIBC Iron Saturation Ferritin Total Bilirubin AST ALT Alkaline Phosphatase Creatine Kinase Troponin I Total Protein Albumin [facility] 10/11/17 10/11/17 10/11/17 01:00 05:30 05:30 WBC 7.0 RBC 2.89 L Hgb 8.7 L Hct 26.6 L MCV 91.9 MCH 30.0 MCHC 32.7 RDW 16.8 H Plt Count 309 MPV 9.0 Absolute Neuts (auto) 4.8 Neutrophils % 68.6 Lymphocytes % 20.7 Monocytes % 7.0 Eosinophils % 2.9 Basophils % 0.8 Nucleated RBC % 0 Retic Count PT with INR INR PTT (Actin FS) 102.7 H Sodium 140 Potassium 4.1 Chloride 100 Carbon Dioxide 27 Anion Gap 13 BUN 50 H D Creatinine 4.7 H Creat Clearance w eGFR 9.11 POC Glucometer Random Glucose 122 H Lactic Acid Calcium 8.5 Phosphorus 5.4 H Magnesium 2.4 Iron TIBC Iron Saturation Ferritin Total Bilirubin AST ALT Alkaline Phosphatase Creatine Kinase Troponin I Total Protein Albumin TSH 10/11/17 10/11/17 05:30 06:01 WBC RBC Hgb Hct MCV MCH MCHC RDW Plt Count MPV Absolute Neuts (auto) Neutrophils % Lymphocytes % Monocytes % Eosinophils % Basophils % Nucleated RBC % Retic Count PT with INR INR PTT (Actin FS) 70.1 H Sodium Potassium Chloride Carbon Dioxide Anion Gap BUN Creatinine Creat Clearance w eGFR POC Glucometer [phone] Random Glucose Lactic Acid Calcium Phosphorus Magnesium Iron TIBC Iron Saturation Ferritin Total Bilirubin AST ALT Alkaline Phosphatase Creatine Kinase Troponin I Total Protein Albumin TSH Active Medications Generic Name Dose Route Start Last Admin Trade Name Freq PRN Reason Stop Dose Admin Acetaminophen 650 mg 10/10/17 17:58 10/11/17 00:15 Tylenol - PO 650 mg Q6H PRN Administration PAIN Albuterol/Ipratropium 1 amp 10/10/17 17:58 Duoneb - NEB Q6H PRN SHORTNESS OF BREATH Amlodipine Besylate 10 mg 10/11/17 10:00 Norvasc - PO DAILY [facility] Atorvastatin Calcium 40 mg 10/10/17 22:00 10/10/17 21:16 Lipitor - PO 40 mg HS [facility] Administration Carvedilol 6.25 mg 10/10/17 22:00 10/10/17 21:16 Coreg - PO 6.25 mg BID [facility] Administration Gabapentin 100 mg 10/10/17 22:00 10/10/17 21:16 Neurontin - PO 100 mg HS [facility] Administration Heparin Sodium (Porcine) 3,100 unit 10/10/17 09:05 Heparin - 40 unit/kg (3100 unit) IVPUSH PRN PRN For aPTT 35 to 45 seconds Heparin Sodium (Porcine) 6,200 unit 10/10/17 09:05 Heparin - 80 unit/kg (6200 unit) IVPUSH PRN PRN aPTT <35 seconds Heparin Sodium (Porcine) 25, 500 mls @ 27.77 mls/hr 10/10/17 10:15 10/11/17 02:45 000 unit/ Sodium Chloride IV 12 unit/kg/hr TITR [facility] 18.51 mls/hr Titration Protocol 18 UNIT/KG/HR Sodium Chloride 250 mls @ 3,000 mls/hr 10/10/17 08:46 Normal Saline - IV PRN PRN Hypotension during Dialysis Insulin Aspart 1 vial 10/10/17 11:00 10/11/17 06:27 Novolog Vial Sliding Scale - SQ Not Given ACHS [facility] Protocol Pantoprazole Sodium 40 mg 10/11/17 10:00 Protonix - PO DAILY [facility] Pyridoxine HCl 100 mg 10/11/17 10:00 Vitamin B6 - PO DAILY [facility] Witch Lupis/Glycerin 1 pad 10/10/17 17:58 Tucks Pads - TP PRN PRN HEMORRHOIDS ASSESSMENT/PLAN: 71 yo female with PMH of HTN, HLD, DMII, ESRD on HD (T, Th, Sat), CAD s/p CABG 2004, with PCI in the last year, admitted for chest pain and syncopal episode. Syncope likely secondary to Acute Metabolic Encephalopathy -Pt likely Uremic Encephalopathy secondary to ESRD, BUN improved today -Some lethargy and somnolence noted on exam -Emergent HD yesterday, mental status improved today -Recheck BMP in AM -Head CT negative for acute pathology -TSH wnl -Echo noted: moderate atrial dilatation, Normal LV function, moderate mitral regurgitation Chest Pain and SOB - improved -Could possibly be due to Pulmonary Embolism ECG noted with new [id number] Troponins negative X2 Emergenct HD required yesterday, so unable to wait for CTA with contrast at that time -Heparin drip started, will reevaluate pending CTA -B/l LE Duplex noted: no signs of DVT in either leg -CXR noted with some improvement of fluid vs congestion from yesterday -Case discussed with nephrology, CTA Chest ordered for tonight with HD confirmed for AM ESRD on HD -Pt likely overloaded and uremic as above, HD yesterday, mental status improved today -Nephrology consult appreciated NIDDM -Pt not on insulin or any known hyperglycemia medications at home -BGMs ACHS with insulin sliding scale for glycemic control if elevated -Has not required any insulin as of yet HTN urgency -Pressure slowly coming down from yesterday on home meds -Norvasc 10 mg PO Daily -Coreg 6.25 mg PO BID Normocytic Anemia -Likely due to chronic renal failure -TIBC 241, Transferrin 643 -Reticulocytes noted 3.6 -Procrit 6000 Units IV Once -Will monitor H/H HLD -Lipitor 40 mg PO HS DVT Prophylaxis -Pt on Heparin Drip FEN -Fluids: none -Electrolytes: Phos 5.4, BMP in AM -Nutrition: Diabetic/Sodium Diet Disposition Can be transferred to Med/Surg Visit type - Emergency Visit Emergency Visit: Yes ED Registration Date: 10/10/17 Care time: The patient presented to the Emergency Department on the above date and was hospitalized for further evaluation of their emergent condition. - New Patient This patient is new to me today: No - Critical Care Critical Care patient: No
[2017-10-11] MEDS: CARVEDILOL 6.25 MG TABLET (FP) PO SCH ×2 (09:55→21:05)
[2017-10-11] MEDS: amLODIPine BESYLATE 10 MG TABLET (FP) PO SCH (09:56)
[2017-10-11] MEDS: PANTOPRAZOLE 40 MG TABLET (FP) PO SCH (09:56)
[2017-10-11] MEDS: PYRIDOXINE HCL (B-6) 100 MG TABLET PO SCH (09:58)
[2017-10-11 10:31] LABS: URINE APPEARANCE CLEAR; URINE BILIRUBIN NEGATIVE (<2.0 mg/dL); URINE COLOR STRAW; URINE GLUCOSE (UA) 1+ (NEGATIVE); URINE KETONE NEGATIVE (NEGATIVE); URINE NITRITE NEGATIVE (NEGATIVE); URINE UROBILINOGEN NEGATIVE mg/dL (0.2-1.0)
[2017-10-11 10:36] LABS: URINE LEUK ESTERASE 1+ (NEGATIVE); URINE PROTEIN 2+ (NEGATIVE)
[2017-10-11 11:36] LABS: EPI CELLS FEW /HPF (FEW)
[2017-10-11] MEDS ORDERED: SODIUM CHLORIDE 250 ML IV PRN (11:47)
--- NOTE | 2017-10-11 11:47 | PN ---
Progress Note, Physician History of Present Illness: Pt seen and examined at bedside. She denies chest pain. She denies shortness of breath. She is awake and alert. - Current Medication List Current Medications: Active Medications Acetaminophen (Tylenol -) 650 mg PO Q6H PRN PRN Reason: PAIN Last Admin: 10/11/17 00:15 Dose: 650 mg Albuterol/Ipratropium (Duoneb -) 1 amp NEB Q6H PRN PRN Reason: SHORTNESS OF BREATH Amlodipine Besylate (Norvasc -) 10 mg PO DAILY [facility] Last Admin: 10/11/17 09:56 Dose: 10 mg Atorvastatin Calcium (Lipitor -) 40 mg PO HS [facility] Last Admin: 10/10/17 21:16 Dose: 40 mg Carvedilol (Coreg -) 6.25 mg PO BID [facility] Last Admin: 10/11/17 09:55 Dose: 6.25 mg Gabapentin (Neurontin -) 100 mg PO HS [facility] Last Admin: 10/10/17 21:16 Dose: 100 mg Heparin Sodium (Porcine) (Heparin -) 3,100 unit 40 unit/kg (3100 unit) IVPUSH PRN PRN PRN Reason: For aPTT 35 to 45 seconds Heparin Sodium (Porcine) (Heparin -) 6,200 unit 80 unit/kg (6200 unit) IVPUSH PRN PRN PRN Reason: aPTT <35 seconds Heparin Sodium (Porcine) 25, (000 unit/ Sodium Chloride) 500 mls @ 27.77 mls/ hr IV TITR [facility]; Protocol Last Titration: 10/11/17 02:45 Dose: 12 unit/kg/hr, 18.51 mls/hr Sodium Chloride (Normal Saline -) 250 mls @ 3,000 mls/hr IV PRN PRN PRN Reason: Hypotension during Dialysis Insulin Aspart (Novolog Vial Sliding Scale -) 1 vial SQ ACHS [facility]; Protocol Last Admin: 10/11/17 06:27 Dose: Not Given Pantoprazole Sodium (Protonix -) 40 mg PO DAILY [facility] Last Admin: 10/11/17 09:56 Dose: 40 mg Pyridoxine HCl (Vitamin B6 -) 100 mg PO DAILY [facility] Last Admin: 10/11/17 09:58 Dose: 100 mg Witch Lupis/Glycerin (Tucks Pads -) 1 pad TP PRN PRN PRN Reason: HEMORRHOIDS - Objective Vital Signs: Vital Signs Temperature 98.0 F 10/11/17 06:00 Pulse Rate 70 10/11/17 06:00 Respiratory Rate 20 10/11/17 06:00 Blood Pressure 130/77 10/11/17 06:00 O2 Sat by Pulse Oximetry (%) 95 10/10/17 20:53 Constitutional: Yes: Calm Eyes: Yes: Conjunctiva Clear HENT: Yes: Atraumatic Neck: Yes: Supple Cardiovascular: Yes: S1, S2 Respiratory: Yes: CTA Bilaterally Gastrointestinal: Yes: Soft Genitourinary: Yes: WNL Musculoskeletal: Yes: WNL Edema: No Neurological: Yes: Oriented Psychiatric: Yes: Oriented Labs: CBC, BMP 10/11/17 05:30 10/11/17 05:30 INR, PTT INR 1.01 (0.83-1.09) 10/10/17 09:15 - ....Imaging Chest X-ray: Report Reviewed Problem List - Problems (1) ESRD (end stage renal disease) Code(s): N18.6 - END STAGE RENAL DISEASE (2) Syncope Code(s): R55 - SYNCOPE AND COLLAPSE Qualifiers: Syncope type: unspecified Qualified Code(s): R55 - Syncope and collapse (3) HLD (hyperlipidemia) Code(s): E78.5 - HYPERLIPIDEMIA, UNSPECIFIED (4) HTN (hypertension) Code(s): I10 - ESSENTIAL (PRIMARY) HYPERTENSION Assessment/Plan Current Medications Generic Name Dose Route Start Last Admin Trade Name Freq PRN Reason Stop Dose Admin Acetaminophen 650 mg 10/10/17 17:58 10/11/17 00:15 Tylenol - PO 650 mg Q6H PRN Administration PAIN Albuterol/Ipratropium 1 amp 10/10/17 17:58 Duoneb - NEB Q6H PRN SHORTNESS OF BREATH Amlodipine Besylate 10 mg 10/11/17 10:00 10/11/17 09:56 Norvasc - PO 10 mg DAILY [facility] Administration Atorvastatin Calcium 40 mg 10/10/17 22:00 10/10/17 21:16 Lipitor - PO 40 mg HS [facility] Administration Carvedilol 6.25 mg 10/10/17 22:00 10/11/17 09:55 Coreg - PO 6.25 mg BID [facility] Administration Gabapentin 100 mg 10/10/17 22:00 10/10/17 21:16 Neurontin - PO 100 mg HS [facility] Administration Heparin Sodium (Porcine) 3,100 unit 10/10/17 09:05 Heparin - 40 unit/kg (3100 unit) IVPUSH PRN PRN For aPTT 35 to 45 seconds Heparin Sodium (Porcine) 6,200 unit 10/10/17 09:05 Heparin - 80 unit/kg (6200 unit) IVPUSH PRN PRN aPTT <35 seconds Heparin Sodium (Porcine) 25, 500 mls @ 27.77 mls/hr 10/10/17 10:15 10/11/17 02:45 000 unit/ Sodium Chloride IV 12 unit/kg/hr TITR [facility] 18.51 mls/hr Titration Protocol 18 UNIT/KG/HR Sodium Chloride 250 mls @ 3,000 mls/hr 10/10/17 08:46 Normal Saline - IV PRN PRN Hypotension during Dialysis Insulin Aspart 1 vial 10/10/17 11:00 10/11/17 06:27 Novolog Vial Sliding Scale - SQ Not Given ACHS [facility] Protocol Pantoprazole Sodium 40 mg 10/11/17 10:00 10/11/17 09:56 Protonix - PO 40 mg DAILY [facility] Administration Pyridoxine HCl 100 mg 10/11/17 10:00 10/11/17 09:58 Vitamin B6 - PO 100 mg DAILY [facility] Administration Witch Lupis/Glycerin 1 pad 10/10/17 17:58 Tucks Pads - TP PRN PRN HEMORRHOIDS Impression 1. ESRD 2. dyspnea 3. CAD 4. HTN 5. DM 6. anemia 7. syncope 8. chest pain 9. hyperkalemia Plan - pt tolerated HD yesterday - will arrange for HD again tomorrow - renal diet and fluid restriction - dyspnea workup in progress - check orthostatic vitals - will follow Dr Mosquera
--- NOTE | 2017-10-11 12:23 | PN ---
Teaching Attending Note Name of Resident: Javon Harrell ATTENDING PHYSICIAN STATEMENT I saw and evaluated the patient. I reviewed the resident's note and discussed the case with the resident. I agree with the resident's findings and plan as documented. SUBJECTIVE:has some slight chest discomfort but breathing status improved. states hard to take deep breaths. dneies fever, chills, cough, hemoptysis, N/V/C /D OBJECTIVE: Last Vital Signs Temp Pulse Resp BP Pulse Ox 98.0 F 70 20 130/77 95 10/11/17 06:00 10/11/17 06:00 10/11/17 06:00 10/11/17 06:00 10/10/17 20:53 General A&O x3 CV S1 S2 +murmur Lungs decrease L base Abdomen +hernia. NT/ND Extremities no pedal edema. +RUE palpable thrill ASSESSMENT AND PLAN: 71yo F with PMH ESRD on HD (TTS), HTN, CAD, s/p CABG, SBO s/p resection and dyslipidemia presented to the ER for witnessed syncope and difficulty breathing. 1. Acute Metabolic encephalopathy- likely uremic induced. s/p HD yesterday and tolerated well. now mental status is returned to normal. BUN trended down. no indication for emergent HD. 2. CP-possible due to elevated BP vs PE. low concern for ACS given normal cath earlier this year and negative troponins x2. clinical concern for PE. unable to do VQ scan as pt continues to have fluid in the lungs although improved after HD. will need to coordinate for CTA prior to HD. no emergent need today. will liekly get tomorrow. cont hep ggt at this time. 3. HTN urgency- now controlled. cont home medications 4. Normocytic anemia- no signs of bleeding. iron studies pending. no indication for transfusion. monitor 5. AG acidosis- due to uremia. resolved 6. Hyperphosphatemia- will d/w renal about starting phoslo 7. Hypermagnesemia 8. DVT ppx- hep ggt
--- NOTE | 2017-10-11 15:40 | PN ---
Progress Note, Physician History of Present Illness: seen and examined today in nad. sitting in chair, awake, alert, comfortable, family at bedside. no new complaints. - Current Medication List Current Medications: Active Medications Acetaminophen (Tylenol -) 650 mg PO Q6H PRN PRN Reason: PAIN Last Admin: 10/11/17 00:15 Dose: 650 mg Albuterol/Ipratropium (Duoneb -) 1 amp NEB Q6H PRN PRN Reason: SHORTNESS OF BREATH Amlodipine Besylate (Norvasc -) 10 mg PO DAILY [facility] Last Admin: 10/11/17 09:56 Dose: 10 mg Atorvastatin Calcium (Lipitor -) 40 mg PO HS [facility] Last Admin: 10/10/17 21:16 Dose: 40 mg Carvedilol (Coreg -) 6.25 mg PO BID [facility] Last Admin: 10/11/17 09:55 Dose: 6.25 mg Epoetin Edil (Epogen -) 8,000 unit IVPUSH ONCE ONE Stop: 10/12/17 11:48 Gabapentin (Neurontin -) 100 mg PO HS [facility] Last Admin: 10/10/17 21:16 Dose: 100 mg Heparin Sodium (Porcine) (Heparin -) 3,100 unit 40 unit/kg (3100 unit) IVPUSH PRN PRN PRN Reason: For aPTT 35 to 45 seconds Heparin Sodium (Porcine) (Heparin -) 6,200 unit 80 unit/kg (6200 unit) IVPUSH PRN PRN PRN Reason: aPTT <35 seconds Heparin Sodium (Porcine) 25, (000 unit/ Sodium Chloride) 500 mls @ 27.77 mls/ hr IV TITR [facility]; Protocol Last Titration: 10/11/17 14:08 Dose: 12 unit/kg/hr, 18.51 mls/hr Sodium Chloride (Normal Saline -) 250 mls @ 3,000 mls/hr IV PRN PRN PRN Reason: Hypotension during Dialysis Sodium Chloride (Normal Saline -) 250 mls @ 3,000 mls/hr IV PRN PRN PRN Reason: Hypotension during Dialysis Stop: 10/12/17 11:47 Pantoprazole Sodium (Protonix -) 40 mg PO DAILY [facility] Last Admin: 10/11/17 09:56 Dose: 40 mg Pyridoxine HCl (Vitamin B6 -) 100 mg PO DAILY [facility] Last Admin: 10/11/17 09:58 Dose: 100 mg Witch Lupis/Glycerin (Tucks Pads -) 1 pad TP PRN PRN PRN Reason: HEMORRHOIDS - Objective Vital Signs: Vital Signs Temperature 98.0 F 10/11/17 06:00 Pulse Rate 70 10/11/17 10:00 Respiratory Rate 19 10/11/17 10:00 Blood Pressure 158/61 10/11/17 10:00 O2 Sat by Pulse Oximetry (%) 95 10/11/17 09:00 Constitutional: Yes: No Distress, Calm Eyes: Yes: Conjunctiva Clear, EOM Intact, PERRL HENT: Yes: Atraumatic, Normocephalic Neck: Yes: Supple, Trachea Midline Cardiovascular: Yes: Regular Rate and Rhythm, Murmur, S1, S2. No: Bradycardia, Tachycardia, Pulse Irregular, Bruit, JVD, Gallop, Rub, S3, S4, Varicosities Respiratory: Yes: Regular, Diminished. No: Rales, Rhonchi, SOB, Wheezes Gastrointestinal: Yes: Normal Bowel Sounds, Soft. No: Distention, Tenderness Edema: No Peripheral Pulses WNL: Yes Neurological: Yes: Alert, Oriented Psychiatric: Yes: Alert, Oriented Labs: CBC, BMP 10/11/17 05:30 10/11/17 05:30 INR, PTT INR 1.01 (0.83-1.09) 10/10/17 09:15 - ....Imaging Chest X-ray: Report Reviewed, Image Reviewed EKG: Report Reviewed, Image Reviewed Other: Report Reviewed, Image Reviewed (tele-nsr, no sig events recorded) Assessment/Plan 71 year old woman with pmh HTN, HLD, DMII, ESRD on HD, CAD s/p CABG 2004 [facility], pt reported cardiac cath within the past 1 year that showed no new obstructive CAD, SBO s/p resection, multiple recent ER presentations and admission for SOB and fluid overload now admitted with c/o episode of syncope preceded by chest pain, palpitations, lightheadedness. Pt noted to have significant chest pain this am and was thus transferred to telemetry. EKG was done and was abnormal with nonspecific findings. Pt seen and examined this am currently sleeping but when awoken c/o chest pain. no sob currently. no pnd, orthopnea. Chest pain/palpitations/lightheadedness/syncope-concerning for possible pulmonary embolism -nsst EKG abnormalities -evaluation and treatment for pulmonary embolism in progress -pt currently on heparin gtt for empiric tx of possible PE with tentative plan for CTA chest tomorrow before HD -unlikely ACS, recent cardiac cath within the last year at [facility] reportedly showed no sig new obstructive CAD and no PCI was performed -cardiac enzymes wnl x 1 yesterday -can check 2nd set of cardiac enzymes -echo 09/20/17 showed normal LV and RV systolic function and echo 02/2017 showed normal LV and RV size and function and no significant valvular abnl -can repeat echo to evaluate RV size and function and re-evaluate LV systolic function -please request last cardiac cath report from [facility] for review -Volume removal for chronic diastolic CHF with HD as per renal
--- NOTE | 2017-10-11 16:50 | ECHO ---
Name: CHINO BATES Exam:Adult Echocardiogram Study Date: 10/11/2017 03:11 PM Age: 71 yrs Reason For Study: SYNCOPE POSSIBLE PE Height: 59 in Weight: 165 lb BSA: 1.7 m2 MMode/2D Measurements & Calculations IVSd: 1.1 cm Ao root diam: 2.6 cm LVIDd: 6.0 cm LA dimension: 4.7 cm LVIDs: 3.8 cm LVPWd: 1.1 cm EDV(Teich): 180.9 ml LAV (MOD-bp): 143.0 ml ESV(Teich): 62.7 ml TAPSE: 1.4 cm RV S Mike: 7.8 cm/sec Doppler Measurements & Calculations MV E max mike: 63.7 cm/sec MR max mike: 321.7 cm/sec MV A max mike: 85.4 cm/sec MR max P.4 mmHg MV E/A: 0.75 TR max mike: 246.4 cm/sec Med Peak E' Mike: 3.8 cm/sec TR max P.3 mmHg Med E/e': 16.8 Lat Peak E' Mike: 8.9 cm/sec Lat E/e': 7.2 Procedure A two-dimensional transthoracic echocardiogram with color flow and Doppler was performed. The study w as technically difficult with many images being suboptimal in quality. Left Ventricle The left ventricle is mildly dilated. The left ventricular ejection fraction is normal. Regional wall motion abnormalities cannot be excluded due to limited visualization. Right Ventricle The right ventricle is not well visualized. Atria The left atrium is moderately dilated. The right atrium is moderately dilated. Mitral Valve There is mild mitral valve thickening. There is no mitral valve stenosis. There is moderate mitral regurgitation. Tricuspid Valve There is mild tricuspid valve thickening. There is no tricuspid stenosis. There is moderate tricuspid regurgitation. Right ventricular systolic pressure is normal. Aortic Valve The aortic valve is not well visualized. No hemodynamically significant valvular aortic stenosis. No aortic regurgitation is present. Pulmonic Valve The pulmonic valve is not well visualized. Great Vessels The aortic root is normal size. Pericardium/Pleura There is no pericardial effusion. Interpretation Summary The left ventricle is mildly dilated. The right atrium is moderately dilated. The left atrium is moderately dilated. Right ventricular systolic pressure is normal. There is moderate tricuspid regurgitation. Regional wall motion abnormalities cannot be excluded due to limited visualization. The left ventricular ejection fraction is normal. The study was technically difficult with many images being suboptimal in quality. There is moderate mitral regurgitation. MD Bear Love 10/11/2017 04:26 PM
[2017-10-11] MEDS: HEPARIN - 25,000 UNIT in SODIUM CHLORIDE 495 ML IV SCH (21:05)
[2017-10-11] MEDS: ATORVASTATIN CA 40 MG TABLET (FP) PO SCH (21:05)
[2017-10-11] MEDS: GABAPENTIN 100 MG CAPSULE (FP) PO SCH (21:06)
[2017-10-12] MEDS: ACETAMINOPHEN 325 MG TABLET (FP) PO PRN (04:51)
[2017-10-12] MEDS: amLODIPine BESYLATE 10 MG TABLET (FP) PO SCH ×2 (07:07→13:11)
[2017-10-12 09:44] VITALS: TEMP 98.1
[2017-10-12] MEDS ORDERED: EPOETIN ALFA 10,000 UNIT/1 ML VIAL IVPUSH ONE (10:00)
[2017-10-12 10:25] LABS: HEMATOCRIT 27.1 % (32.4-45.2); HEMOGLOBIN 8.7 GM/dL (10.7-15.3); MCH 29.6 pg (25.7-33.7); MEAN CELL VOLUME 92.4 fl (80-96); MEAN PLT VOLUME 9.7 fl (7.5-11.1); PLATELET COUNT 285 K/MM3 (134-434); RBC 2.93 M/mm3 (3.60-5.2); RDW 16.4 % (11.6-15.6); WHITE BLOOD COUNT 6.9 K/mm3 (4.0-10.0)
[2017-10-12 10:47] LABS: ANION GAP 15 MMOL/L (8-16); BLOOD UREA NITROGEN 80 mg/dL (7-18); CALCIUM 8.6 mg/dL (8.5-10.1); CHLORIDE 97 mmol/L (98-107); CO2 24 mmol/L (21-32); CREATININE 6.6 mg/dL (0.55-1.02); GLUCOSE,RANDOM 94 mg/dL (74-106); POTASSIUM 4.3 mmol/L (3.5-5.1); SODIUM 136 mmol/L (136-145)
--- NOTE | 2017-10-12 11:56 | DS ---
Physical Exam: SUBJECTIVE: Patient seen and examined OBJECTIVE: Vital Signs Period Temp Pulse Resp BP Sys/Rodriguez Pulse Ox Last 24 Hr 98.1 F-98.3 F 76-89 16-21 135-186/63-78 95-97 PHYSICAL EXAM GENERAL: The patient is awake, alert, and fully oriented, in no acute distress. HEAD: Normal with no signs of trauma. EYES: PERRL, extraocular movements intact, sclera anicteric, conjunctiva clear. ENT: Ears normal, nares patent, oropharynx clear without exudates, moist mucous membranes. NECK: Trachea midline, full range of motion, supple. LUNGS: Breath sounds equal, clear to auscultation bilaterally, no wheezes, no crackles, no accessory muscle use. HEART: Regular rate and rhythm, S1, S2 without murmur, rub or gallop. ABDOMEN: Soft, nontender, nondistended, normoactive bowel sounds, no guarding, no rebound, no hepatosplenomegaly, no masses. EXTREMITIES: 2+ pulses, warm, well-perfused, no edema. NEUROLOGICAL: Cranial nerves II through XII grossly intact. Normal speech, gait not observed. PSYCH: Normal mood, normal affect. SKIN: Warm, dry, normal turgor, no rashes or lesions noted. LABS Laboratory Results - last 24 hr 10/11/17 10/11/17 10/11/17 06:00 11:41 13:05 WBC RBC Hgb Hct MCV MCH MCHC RDW Plt Count MPV PTT (Actin FS) 64.7 H Sodium Potassium Chloride Carbon Dioxide Anion Gap BUN Creatinine Creat Clearance w eGFR POC Glucometer [id number] Random Glucose Calcium Urine WBC (Auto) 6 Urine RBC (Auto) 1 Ur Epithelial Cells Few 10/11/17 10/12/17 10/12/17 21:00 09:30 09:30 WBC RBC Hgb Hct MCV MCH MCHC RDW Plt Count MPV PTT (Actin FS) 61.6 H 52.7 H Sodium 136 Potassium 4.3 Chloride 97 L Carbon Dioxide 24 Anion Gap 15 BUN 80 H D Creatinine 6.6 H Creat Clearance w eGFR 6.16 POC Glucometer Random Glucose 94 Calcium 8.6 Urine WBC (Auto) Urine RBC (Auto) Ur Epithelial Cells 10/12/17 09:30 WBC 6.9 RBC 2.93 L Hgb 8.7 L Hct 27.1 L MCV 92.4 MCH 29.6 MCHC 32.0 RDW 16.4 H Plt Count 285 MPV 9.7 PTT (Actin FS) Sodium Potassium Chloride Carbon Dioxide Anion Gap BUN Creatinine Creat Clearance w eGFR POC Glucometer Random Glucose Calcium Urine WBC (Auto) Urine RBC (Auto) Ur Epithelial Cells IMAGING: CXR 10/09 : increased lung markings improved from previous study Head CT: negative for acute bleed or fracture CXR 10/11 : congestive changes Carotid Doppler: no significant signs of hemodynamically significant changes, moderate intimal thickening with plaques CTA: negative for any evidence of PE. HOSPITAL COURSE: Date of Admission:10/10/17 Date of Discharge: 10/12/17 71 yo female with PMH of HTN, HLD, DMII, ESRD on HD (, , Mon), CAD s/p CABG 2004, with PCI in the last year, admitted for chest pain and syncopal episode. Pt was also noted to have altered mental status. On first day after admission, pt was noted to be somnolent and complaining of severe chest pain. EKG was unchanged and Troponins remained negative throughout admission. Pt was seen by cardiology who made no further recommendations. Pt was also complaining of SOB and chest tightness at that time and CTA could not be done because of need for emergent HD. Pt was started on a heparin drip and b/l LE Duplex was ordered which was negative. Mental status was greatly improved after HD with decrease of uremia. CTA was scheduled and done prior to next HD which was negative for PE so heparin drip was discontinued and patient was discharged. Chest pain was chronic in nature and improved with use of Protonix which pt had prescribed but had not been taking outpatient. It was prescribed on discharge and pt was told to follow up with her primary care physician in addition to nephrology and cardiology. Minutes to complete discharge: 40 Discharge Summary Reason For Visit: SYNCOPE, DIALYSIS PATIENT Current Active Problems ESRD (end stage renal disease) (Acute) Syncope (Acute) Dialysis patient (Chronic) Condition: Stable - Instructions Diet, Activity, Other Instructions: You were admitted for change in mental status and an episode of fainting. While you were here you were seen by a skein winding operator and a kidney doctor. It was determined that your fainting was likely due to elevated levels due to your renal failure. You were dialyzed and your mental status improved. You were complaining of chest pain and shortness of breath. You were started on treatment for a blood clot in your lungs. An ultrasound of your legs showed that there were no clots and a CT scan of your chest also showed that there were no clots in your lungs so the treatment was stopped. At this time you are medically safe to go home. If you begin having similar symptoms again including severe chest pain, difficulty breathing, or fainting, you should call 911 or return to the Emergency Department. You should resume all of your medications as prescribed prior to your admission to the hospital. If you desire to have surgery for your hernia. You can follow up with Dr Rollins for consultation. You should follow up with your primary care physician within 1 week You should see your kidney doctor within 1 week You should follow up with your skein winding operator within 1-2 weeks Referrals: Yash Powell MD [Staff Physician] - 1 Week Yadira Mosquera MD [Staff Physician] - 1 Week Bharathi Rollins MD [Staff Physician] - Disposition: HOME - Home Medications Comprehensive Discharge Medication List: Ambulatory Orders Carvedilol 6.25 mg PO BID 09/20/16 Gabapentin 100 mg PO HS 09/20/16 Albuterol 2.5/Ipratropium 0.5 [Duoneb -] 1 amp NEB Q6H PRN #120 amp 09/26/17 Amlodipine Besylate [Norvasc -] 10 mg PO DAILY #30 tablet 09/26/17 Nebulizer [Aeroeclipse II] 1 each MC PRN PRN #1 each 09/26/17 Pantoprazole Sodium [Protonix] 40 mg PO DAILY #30 tablet. 09/26/17 Martin Baugh 50% (Tucks) [Tucks Pads -] 1 pad TP PRN PRN #30 pad 09/26/17 Acetaminophen [Tylenol] 650 mg PO Q6H PRN 09/27/17 Pyridoxine HCl (Vitamin B6) [Vitamin B-6] 100 mg PO DAILY 09/27/17 Atorvastatin Ca [Lipitor] 40 mg PO DAILY 10/10/17 This patient is new to me today: No Emergency Visit: Yes ED Registration Date: 10/10/17 Care time: The patient presented to the Emergency Department on the above date and was hospitalized for further evaluation of their emergent condition. Critical Care patient: No - Discharge Referral Referred to [facility] No
--- NOTE | 2017-10-12 11:58 | PN ---
Teaching Attending Note Name of Resident: Javon Harrell ATTENDING PHYSICIAN STATEMENT I saw and evaluated the patient. I reviewed the resident's note and discussed the case with the resident. I agree with the resident's findings and plan as documented. SUBJECTIVE:asymptomatic. states she is interested in being evaluated for hernia surgery. denies CP, SOB, fever, chills, hemoptysis OBJECTIVE: Last Vital Signs Temp Pulse Resp BP Pulse Ox 98.1 F 78 17 168/63 97 10/12/17 09:20 10/12/17 10:56 10/12/17 10:56 10/12/17 10:56 10/12/17 09:00 General A&O x3 Abdomen +hernia. NT/ND Extremities no pedal edema. +RUE palpable thrill ASSESSMENT AND PLAN: 71yo F with PMH ESRD on HD (TTS), HTN, CAD, s/p CABG, SBO s/p resection and dyslipidemia presented to the ER for witnessed syncope and difficulty breathing. 1. Acute Metabolic encephalopathy- likely uremic induced. s/p HD currently. mental status at baseline. 2. CP-possible due to elevated BP vs PE. CTPE negative for PE. will d/c hep ggt. can f/u wtih cardio as outpateint. 3. HTN urgency- now controlled. cont home medications 4. Normocytic anemia- no signs of bleeding. iron studies pending. no indication for transfusion. monitor 5. AG acidosis- due to uremia. resolved 6. Hyperphosphatemia- will d/w renal about starting phoslo 7. hernia- general surgery referral as outpatient 7. Hypermagnesemia 8. DVT ppx- hep ggt 9. d/c home after HD
[2017-10-12 12:54] VITALS: BP 153/67; PULSE 75
[2017-10-12] MEDS: PYRIDOXINE HCL (B-6) 100 MG TABLET PO SCH (13:16)
[2017-10-12] MEDS: CARVEDILOL 6.25 MG TABLET (FP) PO SCH (13:16)
[2017-10-12] MEDS: PANTOPRAZOLE 40 MG TABLET (FP) PO SCH (13:16)
--- NOTE | 2017-10-12 14:35 | PN ---
Progress Note, Physician History of Present Illness: Pt tolerated HD. She feels well and is eager to go home. She denies shortness of breath. - Current Medication List Current Medications: Active Medications Acetaminophen (Tylenol -) 650 mg PO Q6H PRN PRN Reason: PAIN Last Admin: 10/12/17 04:51 Dose: 650 mg Albuterol/Ipratropium (Duoneb -) 1 amp NEB Q6H PRN PRN Reason: SHORTNESS OF BREATH Amlodipine Besylate (Norvasc -) 10 mg PO DAILY [facility] Last Admin: 10/12/17 13:11 Dose: Not Given Atorvastatin Calcium (Lipitor -) 40 mg PO HS [facility] Last Admin: 10/11/17 21:05 Dose: 40 mg Carvedilol (Coreg -) 6.25 mg PO BID [facility] Last Admin: 10/12/17 13:16 Dose: 6.25 mg Gabapentin (Neurontin -) 100 mg PO HS [facility] Last Admin: 10/11/17 21:06 Dose: 100 mg Sodium Chloride (Normal Saline -) 250 mls @ 3,000 mls/hr IV PRN PRN PRN Reason: Hypotension during Dialysis Pantoprazole Sodium (Protonix -) 40 mg PO DAILY [facility] Last Admin: 10/12/17 13:16 Dose: 40 mg Pyridoxine HCl (Vitamin B6 -) 100 mg PO DAILY [facility] Last Admin: 10/12/17 13:16 Dose: 100 mg Witch Lupis/Glycerin (Tucks Pads -) 1 pad TP PRN PRN PRN Reason: HEMORRHOIDS - Objective Vital Signs: Vital Signs Temperature 98.1 F 10/12/17 09:20 Pulse Rate 75 10/12/17 12:53 Respiratory Rate 15 10/12/17 12:53 Blood Pressure 153/67 10/12/17 12:53 O2 Sat by Pulse Oximetry (%) 97 10/12/17 09:00 Constitutional: Yes: Calm Eyes: Yes: Conjunctiva Clear HENT: Yes: Atraumatic Neck: Yes: Supple Cardiovascular: Yes: S1, S2 Respiratory: Yes: CTA Bilaterally Gastrointestinal: Yes: Soft Genitourinary: Yes: WNL Musculoskeletal: Yes: WNL Edema: No Neurological: Yes: Oriented Psychiatric: Yes: Oriented Labs: CBC, BMP 10/12/17 09:30 10/12/17 09:30 INR, PTT INR 1.01 (0.83-1.09) 10/10/17 09:15 Problem List - Problems (1) ESRD (end stage renal disease) Code(s): N18.6 - END STAGE RENAL DISEASE (2) Syncope Code(s): R55 - SYNCOPE AND COLLAPSE Qualifiers: Syncope type: unspecified Qualified Code(s): R55 - Syncope and collapse (3) HLD (hyperlipidemia) Code(s): E78.5 - HYPERLIPIDEMIA, UNSPECIFIED (4) HTN (hypertension) Code(s): I10 - ESSENTIAL (PRIMARY) HYPERTENSION Assessment/Plan Current Medications Generic Name Dose Route Start Last Admin Trade Name Freq PRN Reason Stop Dose Admin Acetaminophen 650 mg 10/10/17 17:58 10/12/17 04:51 Tylenol - PO 650 mg Q6H PRN Administration PAIN Albuterol/Ipratropium 1 amp 10/10/17 17:58 Duoneb - NEB Q6H PRN SHORTNESS OF BREATH Amlodipine Besylate 10 mg 10/11/17 10:00 10/12/17 13:11 Norvasc - PO Not Given DAILY G[facility]ON Atorvastatin Calcium 40 mg 10/10/17 22:00 10/11/17 21:05 Lipitor - PO 40 mg HS G[facility] Administration Carvedilol 6.25 mg 10/10/17 22:00 10/12/17 13:16 Coreg - PO 6.25 mg BID G[facility]ON Administration Gabapentin 100 mg 10/10/17 22:00 10/11/17 21:06 Neurontin - PO 100 mg HS G[facility]YSON Administration Sodium Chloride 250 mls @ 3,000 mls/hr 10/10/17 08:46 Normal Saline - IV PRN PRN Hypotension during Dialysis Pantoprazole Sodium 40 mg 10/11/17 10:00 10/12/17 13:16 Protonix - PO 40 mg DAILY [facility] Administration Pyridoxine HCl 100 mg 10/11/17 10:00 10/12/17 13:16 Vitamin B6 - PO 100 mg DAILY [facility] Administration Witch Lupis/Glycerin 1 pad 10/10/17 17:58 Tucks Pads - TP PRN PRN HEMORRHOIDS Impression 1. ESRD 2. dyspnea 3. CAD 4. HTN 5. DM 6. anemia 7. syncope 8. chest pain 9. hyperkalemia Plan - HD today - discussed renal diet and fluid restriction - monitor vitals - dyspnea and chest discomfort resolved - she has HD set up as outpt - will follow Dr Mosquera
== END 2017-10-12 14:00 | disposition home or self-care (01) | DRG 52 ==
LOC: JER 21:48 → JERBED 23:40 → OBSVTOIN 10-10 02:47 → J8W 10-10 05:29 → J2W 10-10 09:58
PROVIDERS: ADMIT Internal Medicine; ATTEND Internal Medicine
PROC: 5A1D70Z Performance of Urinary Filtration, Intermittent, Less than 6 Hours Per Day (ICD-10-PCS; principal; 2017-10-10)
DX: G93.41 Metabolic encephalopathy (principal); R07.9 Chest pain, unspecified; I25.10 Atherosclerotic heart disease of native coronary artery without angina pectoris; I13.2 Hypertensive heart and chronic kidney disease with heart failure and with stage 5 chronic kidney disease, or end stage renal disease; E87.2 Acidosis; E11.22 Type 2 diabetes mellitus with diabetic chronic kidney disease; I50.32 Chronic diastolic (congestive) heart failure; E87.5 Hyperkalemia; N18.6 End stage renal disease; E83.39 Other disorders of phosphorus metabolism; E83.41 Hypermagnesemia; D63.1 Anemia in chronic kidney disease; Z95.1 Presence of aortocoronary bypass graft; E78.5 Hyperlipidemia, unspecified; Z99.2 Dependence on renal dialysis; Z86.73 Personal history of transient ischemic attack (TIA), and cerebral infarction without residual deficits; E66.9 Obesity, unspecified; Z68.33 Body mass index [BMI] 33.0-33.9, adult; I16.0 Hypertensive urgency; K43.9 Ventral hernia without obstruction or gangrene
CPT/HCPCS: 36415; 36600; 70450-TC; 71045-TC-FY; 71275-TC; 80048; 80053; 81003; 81015; 82550; 82728; 82803; 82962; 83540; 83550; 83605; 83735; 84100; 84443; 84466; 84484; 85025; 85027; 85044; 85610; 85730; 87040; 87086; 93005; 93010; 93306-TC; 93880-TC; 93970-TC; 99284-25; G0378; J0885; J1644

== ENCOUNTER 2018-02-23 17:44 | Inpatient (IN) | payer OTHER ==
--- NOTE | 2018-02-23 17:55 | PDOC ---
History of Present Illness - General Stated Complaint: WEAKNESS Time Seen by Provider: 02/23/18 17:55 - History of Present Illness Initial Comments: 02/23/18 17:56 Ms. Posey is a 72 yo female w/ pmh of ESRD (T/R/S HD, last completed yesterday ), HTN, HLD, CAD s/p CABG, DM, SBO s/p resection who presents for evaluation of 3 day history of chest tightness she reports radiates to her back with additional weakness. Patient denies any other symptoms however elected to present as symptoms have not improved. The patient denies shortness of breath, headache and dizziness. Denies fever, chills, nausea, vomit, diarrhea and constipation. Denies dysuria, frequency, urgency and hematuria. Past History - Past Medical History Allergies/Adverse Reactions: Allergies Allergy/AdvReac Type Severity Reaction Status Date / Time No Known Allergies Allergy Verified 02/23/18 18:23 Home Medications: Ambulatory Orders Carvedilol 6.25 mg PO BID 09/20/16 Gabapentin 100 mg PO HS 09/20/16 Albuterol 2.5/Ipratropium 0.5 [Duoneb -] 1 amp NEB Q6H PRN #120 amp 09/26/17 Amlodipine Besylate [Norvasc -] 10 mg PO DAILY #30 tablet 09/26/17 Nebulizer [Aeroeclipse II] 1 each MC PRN PRN #1 each 09/26/17 Witch Lupis 50% (Tucks) [Tucks Pads -] 1 pad TP PRN PRN #30 pad 09/26/17 Acetaminophen [Tylenol] 650 mg PO Q6H PRN 09/27/17 Pyridoxine HCl (Vitamin B6) [Vitamin B-6] 100 mg PO DAILY 09/27/17 Atorvastatin Ca [Lipitor] 40 mg PO DAILY 10/10/17 Pantoprazole Sodium [Protonix] 40 mg PO DAILY #30 tablet. 10/12/17 Anemia: No Asthma: No Cardiac Disorders: Yes (CAD, CABG) CVA: Yes (CVA) COPD: No CHF: No Dementia: No Diabetes: Yes Dialysis: Yes (tues, thurs, sat) GI Disorders: Yes (HERNIA, small bowel resection) Disorders: Yes (ESRD) HTN: Yes Hypercholesterolemia: Yes Liver Disease: No Seizures: No Thyroid Disease: No - Surgical History Abdominal Surgery: No Appendectomy: No Cardiac Surgery: Yes (BYPASS) Cholecystectomy: No Lung Surgery: No Neurologic Surgery: No Orthopedic Surgery: No - Immunization History Td Vaccination: (UNKNOWN) Immunization Up to Date: Yes (FLU AND PNA) - Suicide/Smoking/Psychosocial Hx Smoking Status: No Smoking History: Never smoked Have you smoked in the past 12 months: No Number of Cigarettes Smoked Daily: 0 Cigars Per Day: 0 Hx Alcohol Use: No Drug/Substance Use Hx: No Substance Use Type: None Hx Substance Use Treatment: No Review of Systems - Review of Systems Comments:: 02/23/18 17:56 GENERAL/CONSTITUTIONAL: +Generalized weakness. No fever or chills. HEAD, EYES, EARS, NOSE AND THROAT: No change in vision. No ear pain or discharge. No sore throat. CARDIOVASCULAR: +Chest tightness radiating to back as described for 3 days RESPIRATORY: No cough, wheezing, or hemoptysis. GASTROINTESTINAL: No nausea, vomiting, diarrhea or constipation. GENITOURINARY: No dysuria, frequency, or change in urination. MUSCULOSKELETAL: No joint or muscle swelling or pain. No neck or back pain. SKIN: No rash NEUROLOGIC: No headache, vertigo, loss of consciousness, or change in strength/ sensation. ENDOCRINE: No increased thirst. No abnormal weight change HEMATOLOGIC/LYMPHATIC: No anemia, easy bleeding, or history of blood clots. ALLERGIC/IMMUNOLOGIC: No hives or skin allergy. *Physical Exam - Physical Exam Comments: 02/23/18 17:56 GENERAL: Awake, alert, and fully oriented, in no acute distress HEAD: No signs of trauma, normocephalic, atraumatic EYES: PERRLA, EOMI, sclera anicteric, conjunctiva clear ENT: Auricles normal inspection, hearing grossly normal, nares patent, oropharynx clear without exudates. Moist mucosa NECK: Normal ROM, supple, no lymphadenopathy, JVD, or masses LUNGS: No distress, speaks full sentences, clear to auscultation bilaterally HEART: Regular rate and rhythm, normal S1 and S2, no murmurs, rubs or gallops, peripheral pulses normal and equal bilaterally. ABDOMEN: +Mild LLQ discomfort to palpation c/w patient's known hernia. Otherwise soft, nontender, normoactive bowel sounds. No guarding, no rebound. No masses EXTREMITIES: Normal inspection, Normal range of motion, no edema. No clubbing or cyanosis. NEUROLOGICAL: Cranial nerves II through XII grossly intact. Normal speech, normal gait, no focal sensorimotor deficits SKIN: Warm, Dry, normal turgor, no rashes or lesions noted. ED Treatment Course - LABORATORY CBC & Chemistry Diagram: 02/23/18 18:42 02/23/18 18:42 Medical Decision Making - Medical Decision Making 02/23/18 18:57 Ms. Posey is a 72 yo female w/ pmh as described who presents for evaluation of symptoms concerning for PE vs. cardiac process vs. electrolyte abnormality. Workup started with corresponding d-dimer/cardiac labs/CBC/CMP/CXR/EKG. Bedside US performed which revealed normal cardiac process, no widening of aortic outflow tract. Flat IVC concerning for dehydration. 02/23/18 20:36 Patient D-Dimer elevated as below. Patient requires CTA chest/abdomen for r/o dissection. Discussed with night baker (Dr. Mosquera) who agrees with recommendation and will dialyze tomorrow per patient's normal schedule and to remove contrast. 02/23/18 23:25 Patient received CTA. Currently pending read. Workup otherwise negative as below at this time. Patient will be admitted to hospital telemetry for further care assuming no acute findings on CT. 02/23/18 23:33 CT negative. Admitting patient to hospitalist for further evaluation. Laboratory Results - last 24 hr 02/23/18 02/23/18 02/23/18 18:42 18:42 18:42 WBC 7.3 RBC 3.52 L Hgb 10.8 Hct 32.9 D MCV 93.4 MCH 30.7 MCHC 32.9 RDW 17.6 H Plt Count 344 D MPV 9.4 Absolute Neuts (auto) 4.8 Neutrophils % 66.4 Lymphocytes % 23.3 Monocytes % 7.2 Eosinophils % 2.3 Basophils % 0.8 Nucleated RBC % 0 PT with INR 10.80 INR 0.92 PTT (Actin FS) 33.9 D-Dimer Sodium 137 Potassium 5.4 H Chloride 103 Carbon Dioxide 20 L Anion Gap 13 BUN 70 H Creatinine 7.0 H Creat Clearance w eGFR 5.74 Random Glucose 98 Calcium 9.4 Magnesium 2.6 H Total Bilirubin 0.2 AST 16 ALT 22 Alkaline Phosphatase 172 H Troponin I Total Protein 6.8 Albumin 3.5 02/23/18 02/23/18 02/23/18 18:42 18:42 18:42 WBC RBC Hgb Hct MCV MCH MCHC RDW Plt Count MPV Absolute Neuts (auto) Neutrophils % Lymphocytes % Monocytes % Eosinophils % Basophils % Nucleated RBC % PT with INR INR PTT (Actin FS) Cancelled D-Dimer 1697 H Sodium Potassium Chloride Carbon Dioxide Anion Gap BUN Creatinine Creat Clearance w eGFR Random Glucose Calcium Magnesium Total Bilirubin AST ALT Alkaline Phosphatase Troponin I < 0.02 Total Protein Albumin *DC/Admit/Observation/Transfer Diagnosis at time of Disposition: Weakness, D-dimer, elevated Chest pain Qualifiers: Chest pain type: unspecified Qualified Code(s): R07.9 - Chest pain, unspecified - Discharge Dispostion Decision to Admit order: Yes - Referrals - Patient Instructions - Post Discharge Activity
--- NOTE | 2018-02-23 18:54 | PDOC ---
Attending Attestation - Resident Resident Name: Luis F Erickson - ED Attending Attestation I have performed the following: I have examined & evaluated the patient, The case was reviewed & discussed with the resident, I agree w/resident's findings & plan - [facility] HPI: 02/23/18 18:49 [id number], with a significant past medical history of ESRD on HD (T,Th,S), HTN, HLD , CAD (s/p CABG), DM, SBO (s/p resection), anemia, syncope who presents to the emergency department with, 3 days of chest tightness radiating to her back and weakness. She denies recent fevers, chills, headache or dizziness. She denies recent nausea, vomit, diarrhea or constipation. She denies recent dysuria, frequency, urgency or hematuria. No sick contacts or travel. No new changes in medications. Allergies: NKA Past Medical History: ESRD on HD (T,Th,S), HTN, HLD, CAD (s/p CABG), DM, SBO (s/ p resection) Social history: Lives with family. No smoking. No alcohol. No illicit drugs. Surgical history: CABG, small bowel resection - Physicial Exam PE: 02/23/18 18:50 NAD, well appearing, PERRL, EOMI, dry mucus membranes, nl conjunctiva, anicteric ; neck supple. lungs clear, RRR, sternotomy scar. abdomen soft nontender. soft LLQ reducible hernia, no skin changes. HADLEY x4, no focal neuro deficits. No peripheral edema. normal color for ethnicity, WWP. no calf tenderness. - Medical Decision Making 02/23/18 18:51 I, Tennille Palmer MD, attest that this document has been prepared under my direction and personally reviewed by me in its entirety. I further attest, that it accurately reflects all work, treatment, procedures and medical decision -making performed by me. See HPI for details DDx. chest pain NOS, aortic dissection, PE, ACS, angina, coronary vasospasm, anemia, electrolyte/metabolic derangements. dehydration. Vital signs reviewed, wnl. Prior notes reviewed, including admissions, discharges and consultations. POCUS echo with normal aortic root <4cm, normal EF on visual, RV<LV, small flat IVC; no other acute findings, more likely volume depleted, laboratory results and imaging reviewed, basic labs and lytes wnl, coags normal dimer elevated >1600 - less likely PE, will consider more dissection with CP to back. with dimer elevation and clinical sx, CTA to r/o dissection. gets HD, due for tomorrow, call nephro and CT scan with contrast given risks/benefits and indications. Cardiac panel_neg trop, reassuring doubt cardiac. EKG normal sinus rhythm, no interval abnormalities, narrow QRS, ST and T wave segments and morphology normal. Nonspecific T wave abnormalities ED course: no acute events. - nephro cs with Dr Alvarez, HD within 24 hours, due tomorrow - will do CTA to eval for dissection with sx. consent signed, risks and benefits of contrast nephrotoxicity discussed. no dissection, chronic findings but no acute pathology in thorax admit for tele monitor, chest pain eval, serial trop/ r/o ACS as alternative etiology, supportive care and HD tomorrow 02/23/18 23:35 02/23/18 23:35 Heart Score/ECG Review - History History: Slightly suspicious - Electrocardiogram EKG: Non specific repolarization disturbance - Age Age: >/= 65 - Risk Factors Risk Factors Heart Score: Yes Hx Hypercholesterolemia, Yes Hx Hypertension, Yes Hx Diabetes, Yes Hx Obesity Based on the list above the patient has:: >/=3 risk factors or Hx atherosclerotic disease - ECG Impressions Normal ECG: No Comment:: 02/23/18 18:51 EKG normal sinus rhythm, no interval abnormalities, narrow QRS, ST and T wave segments and morphology normal. Nonspecific T wave abnormalities Procedures - Bedside Ultrasound Bedside Ultrasound: Cardiac Remarks: 02/23/18 19:26 POCUS echo performed, indication includes chest pain/dyspnea. views obtained ( PSLA, PSS, A4, SX, IVC). Findings include normal EF on visual estimation, no pericardial effusion, no FWMA, flat IVC with significant inspiratory collapse. Normal aortic root <4cm. RV<LV. Impression: no acute findings, +hypovolemic
[2018-02-23 18:56] LABS: BASO % 0.8 % (0-2.0); EOS % 2.3 % (0-4.5); HEMATOCRIT 32.9 % (32.4-45.2); HEMOGLOBIN 10.8 GM/dL (10.7-15.3); LYMPH % 23.3 % (8-40); MCH 30.7 pg (25.7-33.7); MCHC 32.9 g/dl (32.0-36.0); MEAN CELL VOLUME 93.4 fl (80-96); MEAN PLT VOLUME 9.4 fl (7.5-11.1); MONO % 7.2 % (3.8-10.2); NEUT % 66.4 % (42.8-82.8); PLATELET COUNT 344 K/MM3 (134-434); RBC 3.52 M/mm3 (3.60-5.2); RDW 17.6 % (11.6-15.6); WHITE BLOOD COUNT 7.3 K/mm3 (4.0-10.0)
[2018-02-23 19:26] LABS: INR 0.92 (0.83-1.09); PROTHROMBIN TIME (PATIENT) 10.8 SEC (9.7-13.0)
[2018-02-23] MEDS ORDERED: SODIUM CHLORIDE 1,000 ML IV STA (19:26)
[2018-02-23 19:29] LABS: ACTIVATED PTT 33.9 SECONDS (25.2-36.5)
[2018-02-23 19:39] LABS: ALBUMIN 3.5 g/dl (3.4-5.0); ALK PHOS 172 U/L (45-117); ANION GAP 13 MMOL/L (8-16); BILIRUBIN,TOTAL 0.2 mg/dL (0.2-1); BLOOD UREA NITROGEN 70 mg/dL (7-18); CALCIUM 9.4 mg/dL (8.5-10.1); CHLORIDE 103 mmol/L (98-107); CO2 20 mmol/L (21-32); GLUCOSE,RANDOM 98 mg/dL (74-106); MAGNESIUM 2.6 mg/dL (1.8-2.4); POTASSIUM 5.4 mmol/L (3.5-5.1); SGOT/AST 16 U/L (15-37); SGPT/ALT 22 U/L (13-61); SODIUM 137 mmol/L (136-145); TOT PROT 6.8 g/dl (6.4-8.2)
[2018-02-23] MEDS ORDERED: ONDANSETRON 4 MG/2 ML VIAL ONE (22:58)
[2018-02-24] MEDS ORDERED: ALBUTEROL SO4 2.5/IPRATROPIUM 0.5 INH SOL 3 ML VIAL.NEB. NEB PRN (02:51)
[2018-02-24] MEDS ORDERED: ACETAMINOPHEN 325 MG TABLET (FP) PO PRN (02:51)
--- NOTE | 2018-02-24 03:01 | HP ---
CHIEF COMPLAINT:chest pain PCP: HISTORY OF PRESENT ILLNESS: Patient is a 71 year old female with past medical history of ESRD on HD (TTS), HTN, HLD, CAD s/p CABG, DM, small bowel resection, CVA, ventral hernia, presented to the ED for intermittent chest pain for the past 3 days. Patient reported pain was midsternal, pressure-like 8/10, radiating to her back with no alleviating/aggravating factors. The pain does not change with breathing, denies any recent trauma, denies any increase in stress or anxiety. Patient also reports fatigue and headache. Denies any weakness/numbness, changes in vision, shortness of breath, palpitations, dizziness, headache, fever, chills, nausea, vomiting, abdominal pain, diarrhea, urinary symptoms. ER course was notable for: (1)D-dimer - 1697 (2)CTA: No CT evidence of dissection, aneurysm, intramural hematoma or penetrating atherosclerotic ulceration. As on previous chest CT (10/11/17), there is extensive noncalcified and calcified atherosclerotic plaque along the thoracoabdominal aorta and partially imaged iliac vasculature. (3) Recent Travel: PAST MEDICAL HISTORY: ESRD on HD (T, , Mon) HTN HLD CAD s/p CABG DM Small bowel resection CVA Ventral hernia PAST SURGICAL HISTORY: CABG (2004) Small bowel resection Social History: Smoking: Denies Alcohol: Denies Drugs: Denies Occupation: Retired Residence: At home with family Ambulation: With Cane or Walker Family History: Allergies No Known Allergies Allergy (Verified 02/23/18 18:23) HOME MEDICATIONS: Home Medications Medication Instructions Recorded Carvedilol 6.25 mg PO BID 09/20/16 Gabapentin 100 mg PO HS 09/20/16 Albuterol 2.5/Ipratropium 0.5 1 amp NEB Q6H PRN #120 amp 09/26/17 [Duoneb -] Amlodipine Besylate [Norvasc -] 10 mg PO DAILY #30 tablet 09/26/17 Nebulizer [Aeroeclipse II] 1 each MC PRN PRN #1 each 09/26/17 [place] Baugh 50% (Tucks) [Tucks 1 pad TP PRN PRN #30 pad 09/26/17 Pads -] Acetaminophen [Tylenol] 650 mg PO Q6H PRN 09/27/17 Pyridoxine HCl (Vitamin B6) 100 mg PO DAILY 09/27/17 [Vitamin B-6] Atorvastatin Ca [Lipitor] 40 mg PO DAILY 10/10/17 Pantoprazole Sodium [Protonix] 40 mg PO DAILY #30 tablet. 10/12/17 REVIEW OF SYSTEMS CONSTITUTIONAL: Absent: fever, chills, diaphoresis, generalized weakness, malaise, loss of appetite, weight change HEENT: Absent: rhinorrhea, nasal congestion, throat pain, throat swelling, difficulty swallowing, mouth swelling, ear pain, eye pain, visual changes CARDIOVASCULAR: Absent: chest pain, syncope, palpitations, irregular heart rate, lightheadedness , peripheral edema RESPIRATORY: Absent: cough, shortness of breath, dyspnea with exertion, orthopnea, wheezing, stridor, hemoptysis GASTROINTESTINAL: Absent: abdominal pain, abdominal distension, nausea, vomiting, diarrhea, constipation, melena, hematochezia GENITOURINARY: Absent: dysuria, frequency, urgency, hesitancy, hematuria, flank pain, genital pain MUSCULOSKELETAL: Absent: myalgia, arthralgia, joint swelling, back pain, neck pain SKIN: Absent: rash, itching, pallor HEMATOLOGIC/IMMUNOLOGIC: Absent: easy bleeding, easy bruising, lymphadenopathy, frequent infections ENDOCRINE: Absent: unexplained weight gain, unexplained weight loss, heat intolerance, cold intolerance NEUROLOGIC: Absent: headache, focal weakness or paresthesias, dizziness, unsteady gait, seizure, mental status changes, bladder or bowel incontinence PSYCHIATRIC: Absent: anxiety, depression, suicidal or homicidal ideation, hallucinations. PHYSICAL EXAMINATION Vital Signs - 24 hr 02/23/18 02/24/18 17:45 00:07 Temperature 98.2 F 98.3 F Pulse Rate 74 Pulse Rate [ 83 Right Apical] Respiratory 18 18 Rate Blood Pressure 155/68 Blood Pressure 137/61 [Left Arm] O2 Sat by Pulse 99 98 Oximetry (%) GENERAL: Awake, alert, and fully oriented, in no acute distress. HEAD: Normal with no signs of trauma. EYES: PERRLA, EOMI, sclera anicteric, conjunctiva clear. EARS, NOSE, THROAT: Nares patent, oropharynx clear without exudates. Dry mucous membranes. NECK: Supple without lymphadenopathy, JVD, or masses. LUNGS: Decreased breath sounds on bilateral bases. HEART: Regular rate and rhythm, normal S1 and S2 without murmur, rub or gallop. ABDOMEN: Soft, nontender, not distended, normoactive bowel sounds, +umbilical hernia. MUSCULOSKELETAL: Normal range of motion at all joints. No bony deformities or tenderness. No CVA tenderness. UPPER EXTREMITIES: 2+ pulses, warm, well-perfused. No peripheral edema. + Fistula on the right arm with palpable thrill LOWER EXTREMITIES: 2+ pulses, warm, well-perfused. No calf tenderness. No peripheral edema. NEUROLOGICAL: Cranial nerves II-XII intact. Normal speech. Gait not observed. SKIN: Warm, dry, normal turgor, no rashes or lesions noted. Laboratory Results - last 24 hr 02/23/18 02/23/18 02/23/18 18:42 18:42 18:42 WBC 7.3 RBC 3.52 L Hgb 10.8 Hct 32.9 D MCV 93.4 MCH 30.7 MCHC 32.9 RDW 17.6 H Plt Count 344 D MPV 9.4 Absolute Neuts (auto) 4.8 Neutrophils % 66.4 Lymphocytes % 23.3 Monocytes % 7.2 Eosinophils % 2.3 Basophils % 0.8 Nucleated RBC % 0 PT with INR 10.80 INR 0.92 PTT (Actin FS) 33.9 D-Dimer Sodium 137 Potassium 5.4 H Chloride 103 Carbon Dioxide 20 L Anion Gap 13 BUN 70 H Creatinine 7.0 H Creat Clearance w eGFR 5.74 Random Glucose 98 Calcium 9.4 Magnesium 2.6 H Total Bilirubin 0.2 AST 16 ALT 22 Alkaline Phosphatase 172 H Troponin I Total Protein 6.8 Albumin 3.5 02/23/18 02/23/18 02/23/18 18:42 18:42 18:42 WBC RBC Hgb Hct MCV MCH MCHC RDW Plt Count MPV Absolute Neuts (auto) Neutrophils % Lymphocytes % Monocytes % Eosinophils % Basophils % Nucleated RBC % PT with INR INR PTT (Actin FS) Cancelled D-Dimer 1697 H Sodium Potassium Chloride Carbon Dioxide Anion Gap BUN Creatinine Creat Clearance w eGFR Random Glucose Calcium Magnesium Total Bilirubin AST ALT Alkaline Phosphatase Troponin I < 0.02 Total Protein Albumin ASSESSMENT/PLAN: Patient is a 71 year old female with past medical history of ESRD on HD (TTS), HTN, HLD, CAD s/p CABG, DM, small bowel resection, CVA, ventral hernia, presented to the ED for intermittent chest pain for the past 3 days. #Chest pain, may be 2/2 fluid overload, rule out PE, ACS -D-dimer 1696 -CTA chest/abdomen: No CT evidence of dissection, aneurysm, intramural hematoma , or penetrating atherosclerotic ulceration. As on previous chest CT (10/11/17), there is extensive noncalcified and calcified atherosclerotic plaque along the thoracoabdominal aorta and partially imaged iliac vasculature. -Echo (10/2017): moderate atrial dilatation, Normal LV function, moderate mitral regurgitation -Trend trops and EKG -Cardiology (Dr. Powell) consulted #ESRD on HD (TTS) -BUN/Cr 70/7.0 -For Dialysis today -Nephrology (Dr. Mosquera) consulted. #Hypertension -Amlodipine 10mg daily -Carvedilol 6.25mg daily #Hyperlipidemia -Lipitor 40mg daily #DM -Insulin sliding scale implemented -BGM ACHS #FEN -Not on any standing fluids -HyperK, HyperMg --> for HD today -Routine bmp monitoring -Renal diet #Prophylaxis -Heparin 5000units sq tid #Disposition -full code -admit to tele Visit type - Emergency Visit Emergency Visit: Yes ED Registration Date: 02/23/18 Care time: The patient presented to the Emergency Department on the above date and was hospitalized for further evaluation of their emergent condition. - New Patient This patient is new to me today: Yes Date on this admission: 02/24/18 - Critical Care Critical Care patient: No
[2018-02-24 04:16] VITALS: BMI 32.6
--- NOTE | 2018-02-24 04:25 | HOSP ---
Subjective - Review of Symptoms Events since last encounter: Patient is a 71 year old female with past medical history of ESRD on HD (TTS), HTN, HLD, CAD s/p CABG, DM, small bowel resection, CVA, ventral hernia, presented to the ED for intermittent chest pain for the past 3 days. Patient reported pain was pressure-like 8/10 midsternally radiating to her back. Vital Signs Temperature 97.9 F 02/24/18 01:00 Pulse Rate 68 02/24/18 01:00 Respiratory Rate 20 02/24/18 01:00 Blood Pressure 143/59 L 02/24/18 01:00 O2 Sat by Pulse Oximetry (%) 98 02/24/18 00:07 GENERAL: Awake, alert, and fully oriented, in no acute distress. HEAD: Normal with no signs of trauma. EYES: PERRLA, EOMI, sclera anicteric, conjunctiva clear. EARS, NOSE, THROAT: Nares patent, oropharynx clear without exudates. Dry mucous membranes. NECK: Supple without lymphadenopathy, JVD, or masses. LUNGS: Decreased breath sounds on bilateral bases. HEART: Regular rate and rhythm, normal S1 and S2 without murmur, rub or gallop. ABDOMEN: Soft, nontender, not distended, normoactive bowel sounds, +umbilical hernia. MUSCULOSKELETAL: Normal range of motion at all joints. No bony deformities or tenderness. No CVA tenderness. EXTREMITIES: 2+ pulses, warm, well-perfused. No peripheral edema. +Fistula on the right arm with palpable thrill NEUROLOGICAL: Cranial nerves II-XII intact. Normal speech. Gait not observed. SKIN: Warm, dry, normal turgor, no rashes or lesions noted. CBCD WBC 7.3 K/mm3 (4.0-10.0) 02/23/18 18:42 RBC 3.52 M/mm3 (3.60-5.2) L 02/23/18 18:42 Hgb 10.8 GM/dL (10.7-15.3) 02/23/18 18:42 Hct 32.9 % (32.4-45.2) D 02/23/18 18:42 MCV 93.4 fl (80-96) 02/23/18 18:42 MCHC 32.9 g/dl (32.0-36.0) 02/23/18 18:42 RDW 17.6 % (11.6-15.6) H 02/23/18 18:42 Plt Count 344 K/MM3 (134-434) D 02/23/18 18:42 MPV 9.4 fl (7.5-11.1) 02/23/18 18:42 CMP Sodium 137 mmol/L (136-145) 02/23/18 18:42 Potassium 5.4 mmol/L (3.5-5.1) H 02/23/18 18:42 Chloride 103 mmol/L (98-107) 02/23/18 18:42 Carbon Dioxide 20 mmol/L (21-32) L 02/23/18 18:42 Anion Gap 13 MMOL/L (8-16) 02/23/18 18:42 BUN 70 mg/dL (7-18) H 02/23/18 18:42 Creatinine 7.0 mg/dL (0.55-1.3) H 02/23/18 18:42 Creat Clearance w eGFR 5.74 (>60) 02/23/18 18:42 Random Glucose 98 mg/dL (74-106) 02/23/18 18:42 Calcium 9.4 mg/dL (8.5-10.1) 02/23/18 18:42 Total Bilirubin 0.2 mg/dL (0.2-1) 02/23/18 18:42 AST 16 U/L (15-37) 02/23/18 18:42 ALT 22 U/L (13-61) 02/23/18 18:42 Alkaline Phosphatase 172 U/L (45-117) H 02/23/18 18:42 Total Protein 6.8 g/dl (6.4-8.2) 02/23/18 18:42 Albumin 3.5 g/dl (3.4-5.0) 02/23/18 18:42 CARDIAC ENZYMES Troponin I < 0.02 ng/ml (0.00-0.05) 02/23/18 18:42 Current Medications Generic Name Dose Route Start Last Admin Trade Name Freq PRN Reason Stop Dose Admin Acetaminophen 650 mg 02/24/18 02:51 Tylenol - PO Q6H PRN PAIN LEVEL 1-5 Albuterol/Ipratropium 1 amp 02/24/18 02:51 Duoneb - NEB Q6H PRN SHORTNESS OF BREATH Amlodipine Besylate 10 mg 02/24/18 10:00 Norvasc - PO DAILY [facility] Atorvastatin Calcium 40 mg 02/24/18 22:00 Lipitor - PO HS [facility] Carvedilol 6.25 mg 02/24/18 10:00 Coreg - PO BID [facility] Gabapentin 100 mg 02/24/18 22:00 Neurontin - PO HS [facility] Heparin Sodium (Porcine) 5,000 unit 02/24/18 06:00 Heparin - SQ TID [facility] Pantoprazole Sodium 40 mg 02/24/18 10:00 Protonix - PO DAILY [facility] Pyridoxine HCl 100 mg 02/24/18 10:00 Vitamin B6 - PO DAILY [facility] Home Medications Medication Instructions Recorded Carvedilol 6.25 mg PO BID 09/20/16 Gabapentin 100 mg PO HS 09/20/16 Albuterol 2.5/Ipratropium 0.5 1 amp NEB Q6H PRN #120 amp 09/26/17 [Duoneb -] Amlodipine Besylate [Norvasc -] 10 mg PO DAILY #30 tablet 09/26/17 Nebulizer [Aeroeclipse II] 1 each MC PRN PRN #1 each 09/26/17 Witch Lupis 50% (Tucks) [Tucks 1 pad TP PRN PRN #30 pad 09/26/17 Pads -] Acetaminophen [Tylenol] 650 mg PO Q6H PRN 09/27/17 Pyridoxine HCl (Vitamin B6) 100 mg PO DAILY 09/27/17 [Vitamin B-6] Atorvastatin Ca [Lipitor] 40 mg PO DAILY 10/10/17 Pantoprazole Sodium [Protonix] 40 mg PO DAILY #30 tablet. 10/12/17 CTA chest/abdomen: No CT evidence of dissection, aneurysm, intramural hematoma, or penetrating atherosclerotic ulceration. As on previous chest CT (10/11/17), there is extensive noncalcified and calcified atherosclerotic plaque along the thoracoabdominal aorta and partially imaged iliac vasculature. -Echo (10/2017): moderate atrial dilatation, Normal LV function, moderate mitral regurgitation CTA: no dissection noted A/P: Patient is a 71 year old female with past medical history of ESRD on HD (TTS), HTN, HLD, CAD s/p CABG, DM, small bowel resection, CVA, ventral hernia, presented to the ED for intermittent chest pain for the past 3 days. # acute chest pain, rule out ACS, d-dimer 1697, CTA no evidence of dissection. trend troponins, cardiology (Dr. Powell) consulted #ESRD on HD (TTS), BUN/Cr 70/7.0, Nephrology (Dr. Mosquera) consulted. #Hypertension: Amlodipine 10mg and Carvedilol 6.25mg daily #Hyperlipidemia: continue Lipitor 40mg daily #T2DM on Insulin sliding scale. BGM ACHS DVT Prophylaxis: Heparin 5000units sq tid full code, admit to tele Physical Examination Vital Signs: Vital Signs Temperature 97.9 F 02/24/18 01:00 Pulse Rate 68 02/24/18 01:00 Respiratory Rate 20 02/24/18 01:00 Blood Pressure 143/59 L 02/24/18 01:00 O2 Sat by Pulse Oximetry (%) 98 02/24/18 00:07 Labs: CBC, BMP 02/23/18 18:42 02/23/18 18:42
--- NOTE | 2018-02-24 05:07 | PN ---
Teaching Attending Note Name of Resident: Krystle Tai ATTENDING PHYSICIAN STATEMENT I saw and evaluated the patient. I reviewed the resident's note and discussed the case with the resident. I agree with the resident's findings and plan as documented. SUBJECTIVE: OBJECTIVE: ASSESSMENT AND PLAN: Patient is a 71 year old female with past medical history of ESRD on HD (TTS), HTN, HLD, CAD s/p CABG, DM, small bowel resection, CVA, ventral hernia, presented to the ED for intermittent chest pain for the past 3 days. atypical Chest pain r/o ACS - trend troponin - trend ECG admit to telemonitor cariology evaluation #ESRD on HD (TTS) - dialysis today - #Hypertension - stable c/w medicaiton c/w dialysis #Hyperlipidemia - c/w statin #CAD s/p CABG - c/w aspirin #DM insuliun
[2018-02-24 06:48] LABS: BASO % 0.8 % (0-2.0); EOS % 1.9 % (0-4.5); HEMATOCRIT 31.5 % (32.4-45.2); HEMOGLOBIN 10.3 GM/dL (10.7-15.3); LYMPH % 20.1 % (8-40); MCH 30.5 pg (25.7-33.7); MCHC 32.8 g/dl (32.0-36.0); MEAN CELL VOLUME 93.1 fl (80-96); MEAN PLT VOLUME 8.8 fl (7.5-11.1); MONO % 6.1 % (3.8-10.2); NEUT % 71.1 % (42.8-82.8); PLATELET COUNT 285 K/MM3 (134-434); RBC 3.39 M/mm3 (3.60-5.2); RDW 16.9 % (11.6-15.6); WHITE BLOOD COUNT 8.5 K/mm3 (4.0-10.0)
[2018-02-24] MEDS: HEPARIN NA (PORCINE) 5,000 UNITS/ML 1ML VIAL SQ SCH ×3 (06:49→21:46)
[2018-02-24] MEDS: INSULIN SLIDING SCALE (NOVOLOG) 1 VIAL SQ SCH ×4 (06:49→21:33)
[2018-02-24 07:53] LABS: ALBUMIN 3.2 g/dl (3.4-5.0); ALK PHOS 165 U/L (45-117); ANION GAP 14 MMOL/L (8-16); BILIRUBIN,TOTAL 0.2 mg/dL (0.2-1); BLOOD UREA NITROGEN 74 mg/dL (7-18); CALCIUM 8.6 mg/dL (8.5-10.1); CHLORIDE 102 mmol/L (98-107); CO2 19 mmol/L (21-32); GLUCOSE,RANDOM 82 mg/dL (74-106); MAGNESIUM 2.5 mg/dL (1.8-2.4); PHOSPHOROUS 4.1 mg/dL (2.5-4.9); POTASSIUM 5.1 mmol/L (3.5-5.1); SGOT/AST 10 U/L (15-37); SGPT/ALT 19 U/L (13-61); SODIUM 135 mmol/L (136-145); TOT PROT 6.3 g/dl (6.4-8.2)
[2018-02-24 08:20] LABS: CREATININE 7.7 mg/dL (0.55-1.3)
[2018-02-24] MEDS: CARVEDILOL 6.25 MG TABLET (FP) PO SCH ×2 (10:37→21:44)
[2018-02-24] MEDS: amLODIPine BESYLATE 10 MG TABLET (FP) PO SCH (10:37)
[2018-02-24] MEDS: PANTOPRAZOLE 40 MG TABLET (FP) PO SCH (10:39)
[2018-02-24] MEDS: PYRIDOXINE HCL (B-6) 50 MG TABLET (FP) PO SCH (10:39)
--- NOTE | 2018-02-24 13:37 | CONSULT ---
Consult Consult Specialty:: Nephrology Reason for Consultation:: ESRD - History of Present Illness Chief Complaint: chest tightness History of Present Illness: Pt is a 72 year old female with pmhx of ESRD, HTN, HLD, CAD and DM who presents to the ER with chest tightness yesterday. She had a CTA to rule out dissection last night. She is due for HD today. She currently denies chest pain or shortness of breath. She denies fevers or chills. She denies dysuria or hematuria. She does complain of some lower ext edema but she says it nothing out of the ordinary. 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: CVA Cardio/Vascular: Yes: CAD, CHF, HTN, NV, Hyperlipdemia Renal/: Yes: Renal Failure, Hemodialysis Psych: Yes: Anxiety Musculoskeletal: Yes: Chronic low back pain Endocrine: Yes: Diabetes Mellitus - Past Surgical History Past Surgical History: Yes: AV Fistula/Graft, CABG - Alcohol/Substance Use Hx Alcohol Use: No History of Substance Use: reports: None - Smoking History Smoking history: Never smoked Have you smoked in the past 12 months: No Aproximately how many cigarettes per day: 0 - Social History Usual Living Arrangement: With Child ADL: Independent History of Recent Travel: No Home Medications - Allergies Allergies/Adverse Reactions: Allergies Allergy/AdvReac Type Severity Reaction Status Date / Time No Known Allergies Allergy Verified 02/23/18 18:23 - Home Medications Home Medications: Ambulatory Orders RX: Carvedilol 6.25 mg PO BID 09/20/16 RX: Gabapentin 100 mg PO HS 09/20/16 RX: Albuterol 2.5/Ipratropium 0.5 [Duoneb -] 1 amp NEB Q6H PRN #120 amp RX: Amlodipine Besylate [Norvasc -] 10 mg PO DAILY #30 tablet 09/26/17 RX: Nebulizer [Aeroeclipse II] 1 each MC PRN PRN #1 each 09/26/17 RX: Witch Lupis 50% (Tucks) [Tucks Pads -] 1 pad TP PRN PRN #30 pad 09/26/17 RX: Acetaminophen [Tylenol] 650 mg PO Q6H PRN 09/27/17 RX: Pyridoxine HCl (Vitamin B6) [Vitamin B-6] 100 mg PO DAILY 09/27/17 RX: Atorvastatin Ca [Lipitor] 40 mg PO DAILY 10/10/17 RX: Pantoprazole Sodium [Protonix] 40 mg PO DAILY #30 tablet. 10/12/17 Family Disease History - Family Disease History Family History: Denies Review of Systems - Review of Systems Constitutional: reports: Malaise. denies: Chills, Fever Eyes: reports: No Symptoms HENT: reports: No Symptoms Neck: reports: No Symptoms Cardiovascular: reports: Chest Pain, Edema Respiratory: reports: Cough, SOB on Exertion Gastrointestinal: reports: No Symptoms Genitourinary: reports: No Symptoms Musculoskeletal: reports: No Symptoms Neurological: reports: No Symptoms Endocrine: reports: No Symptoms Hematology/Lymphatic: reports: No Symptoms Psychiatric: reports: No Symptoms Physical Exam Vital Signs: Vital Signs Temperature 98.1 F 02/24/18 09:00 Pulse Rate 79 02/24/18 09:00 Respiratory Rate 20 02/24/18 09:00 Blood Pressure 139/72 02/24/18 09:00 O2 Sat by Pulse Oximetry (%) 98 02/24/18 09:00 Constitutional: Yes: Calm Eyes: Yes: Conjunctiva Clear HENT: Yes: Atraumatic Neck: Yes: Supple Cardiovascular: Yes: S1, S2 Respiratory: Yes: CTA Bilaterally Gastrointestinal: Yes: Soft, Abdomen, Obese Renal/: Yes: WNL Musculoskeletal: Yes: WNL Extremities: Yes: WNL Edema: Yes Edema: LLE: Trace, RLE: Trace Neurological: Yes: Oriented Psychiatric: Yes: Oriented Labs: CBC, BMP 02/24/18 05:30 02/24/18 05:30 Laboratory Tests 02/23/18 02/23/18 02/24/18 18:42 18:42 05:30 Hgb 10.8 10.3 L Sodium Potassium 5.4 H Creatinine 7.0 H 02/24/18 05:30 Hgb Sodium 135 L Potassium 5.1 Creatinine 7.7 H* Imaging - Results Chest X-ray: Report Reviewed Cat Scan: Report Reviewed Problem List - Problems (1) Chest pain Code(s): R07.9 - CHEST PAIN, UNSPECIFIED Qualifiers: Chest pain type: unspecified Qualified Code(s): R07.9 - Chest pain, unspecified (2) ESRD (end stage renal disease) Code(s): N18.6 - END STAGE RENAL DISEASE (3) HTN (hypertension) Code(s): I10 - ESSENTIAL (PRIMARY) HYPERTENSION Assessment/Plan Current Medications Generic Name Dose Route Start Last Admin Trade Name Freq PRN Reason Stop Dose Admin Acetaminophen 650 mg 02/24/18 02:51 Tylenol - PO Q6H PRN PAIN LEVEL 1-5 Albuterol/Ipratropium 1 amp 02/24/18 02:51 Duoneb - NEB Q6H PRN SHORTNESS OF BREATH Amlodipine Besylate 10 mg 02/24/18 10:00 Norvasc - PO DAILY [facility] Atorvastatin Calcium 40 mg 02/24/18 22:00 Lipitor - PO HS [facility] Carvedilol 6.25 mg 02/24/18 10:00 Coreg - PO BID [facility] Gabapentin 100 mg 02/24/18 22:00 Neurontin - PO HS [facility] Heparin Sodium (Porcine) 5,000 unit 02/24/18 06:00 02/24/18 06:49 Heparin - SQ 5,000 unit TID [facility] Administration Heparin Sodium (Porcine) 500 unit 02/24/18 09:03 Heparin - IVPUSH 02/24/18 09:04 ONCE ONE Sodium Chloride 250 mls @ 3,000 mls/hr 02/24/18 09:03 Normal Saline - IV 02/25/18 09:03 PRN PRN Hypotension during Dialysis Insulin Aspart 1 vial 02/24/18 07:00 02/24/18 06:49 Novolog Vial Sliding Scale - SQ Not Given ACHS [facility] Protocol Pantoprazole Sodium 40 mg 02/24/18 10:00 Protonix - PO DAILY [facility] Pyridoxine HCl 100 mg 02/24/18 10:00 Vitamin B6 - PO DAILY [facility] Impression 1. ESRD 2. chest pain 3. CAD 4. HTN 5. DM 6. anemia 7. hx syncope 8. chest pain 9. hyperkalemia 10. 1.4 cm left adrenal adenoma Plan - HD today at bedside in tele - cardio eval - ct neg for dissection - HD to treat potassium - pt feels symptoms have improved - will follow
--- NOTE | 2018-02-24 14:22 | CON.CARD ---
Consult Consult Specialty:: Cardiology Referred by:: Dr. Zhao Reason for Consultation:: Chest pain - History of Present Illness Chief Complaint: Chest pain History of Present Illness: 72 year-old woman with a PMHx of HTN, DM, HLD, CAD, s/p CABG in 2004 at [facility], ESRD on HD, SBO s/p resection admitted 02/23/2018 with recurrent chest pain. The patient had 3 days of intemittent chest tightness with radiation to her back with weakness. She reports no SOB, palpitation, dizziness, syncope or near syncope. No edema, orthopnea or PND. [place] ruled out. No ECG changes of ischemia. CT angio of thoracic and abdominal aorta 02/23/2018 showed no evidence of dissection or aneurysm. She has been stable without recurrent angina since admission. She tolerates HD without recurrent chest pain during HD. Previous cardiac tests: Echocardiogram 10/11/2017 showed mild LV dilatation with normal LVEF. RV not well visualized. Moderate LA and RA dilatation. FCAV without stenosis. Moderate MR and TR. Cardiac cath in February 2017 reported no new disease. 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: CVA Cardio/Vascular: Yes: CAD, CHF, HTN, [place], Hyperlipdemia Renal/: Yes: Renal Failure, Hemodialysis Psych: Yes: Anxiety Musculoskeletal: Yes: Chronic low back pain Endocrine: Yes: Diabetes Mellitus - Past Surgical History Past Surgical History: Yes: AV Fistula/Graft, CABG - Alcohol/Substance Use Hx Alcohol Use: No History of Substance Use: reports: None - Smoking History Smoking history: Never smoked Have you smoked in the past 12 months: No Aproximately how many cigarettes per day: 0 - Social History Usual Living Arrangement: With Child ADL: Independent History of Recent Travel: No Home Medications - Allergies Allergies/Adverse Reactions: Allergies Allergy/AdvReac Type Severity Reaction Status Date / Time No Known Allergies Allergy Verified 02/23/18 18:23 - Home Medications Home Medications: Ambulatory Orders Carvedilol 6.25 mg PO BID 09/20/16 Gabapentin 100 mg PO HS 09/20/16 Albuterol 2.5/Ipratropium 0.5 [Duoneb -] 1 amp NEB Q6H PRN #120 amp 09/26/17 Amlodipine Besylate [Norvasc -] 10 mg PO DAILY #30 tablet 09/26/17 Nebulizer [Aeroeclipse II] 1 each MC PRN PRN #1 each 09/26/17 Witch Lupis 50% (Tucks) [Tucks Pads -] 1 pad TP PRN PRN #30 pad 09/26/17 Acetaminophen [Tylenol] 650 mg PO Q6H PRN 09/27/17 Pyridoxine HCl (Vitamin B6) [Vitamin B-6] 100 mg PO DAILY 09/27/17 Atorvastatin Ca [Lipitor] 40 mg PO DAILY 10/10/17 Pantoprazole Sodium [Protonix] 40 mg PO DAILY #30 tablet. 10/12/17 Review of Systems - Review of Systems Constitutional: reports: No Symptoms Eyes: reports: No Symptoms HENT: reports: No Symptoms Neck: reports: No Symptoms Cardiovascular: reports: Chest Pain Respiratory: reports: No Symptoms Gastrointestinal: reports: No Symptoms Genitourinary: reports: No Symptoms Breasts: reports: No Symptoms Reported Musculoskeletal: reports: No Symptoms Integumentary: reports: No Symptoms Neurological: reports: No Symptoms Endocrine: reports: No Symptoms Hematology/Lymphatic: reports: No Symptoms Psychiatric: reports: No Symptoms Vital Signs: Vital Signs Temperature 98.1 F 02/24/18 09:00 Pulse Rate 79 02/24/18 09:00 Respiratory Rate 20 02/24/18 09:00 Blood Pressure 139/72 02/24/18 09:00 O2 Sat by Pulse Oximetry (%) 98 02/24/18 09:00 General: Well developed. Well nourished. No acute distress. Head: Normocephalic. Atraumatic, Eyes: PERRLA, EOMI. Sclerae anicteric. Conjunctivae clear. Neck: Supple. No JVD. No bruits. Heart: Normal S1, S2: Regular rhythm and rate. II/ holosystolic murmur. No gallop or rub. Lungs: Symmetrical air entry. Clear to auscultation. No crackles. No wheezing or rhonchi. Abdomen: Soft. Bowel sound positive. Non tender. No masses. Extremities: No edema. No clubbing or cyanosis. - Other Data Labs, Other Data: CBC, BMP 02/24/18 05:30 02/24/18 05:30 INR, PTT INR 0.92 (0.83-1.09) 02/23/18 18:42 Troponin, BNP 02/23/18 02/24/18 18:42 05:30 Troponin I < 0.02 0.03 Troponin, BNP 02/23/18 02/24/18 18:42 05:30 Troponin I < 0.02 0.03 Imaging - Results EKG: Image Reviewed (ECG 02/23/2018. Normal sinus. Normal axis. Normal ST and T.) Assessment/Plan 72 year-old woman with a PMHx of HTN, DM, HLD, CAD, s/p CABG in 2004 at [facility], ESRD on HD, SBO s/p resection admitted 02/23/2018 with recurrent chest pain. [place] ruled out. No ECG changes of ischemia. CT angio of thoracic and abdominal aorta 02/23/2018 showed no evidence of dissection or aneurysm. She has been stable without recurrent angina since admission. She tolerates HD without recurrent chest pain during HD. Previous cardiac tests: Echocardiogram 10/11/2017 showed mild LV dilatation with normal LVEF. RV not well visualized. Moderate LA and RA dilatation. FCAV without stenosis. Moderate MR and TR. Cardiac cath in February 2017 reported no new disease. CAD s/p CABG in 2004 with recurrent chest pain. No evidence of [place] or acute ECG changes. 1) Patient can be managed conservatively at this time. 2) Add aspirin 81 mg daily and Imdur 30 mg daily. 3) Increase carvedilol to 12.5 mg BID for better heart rate and BP control. 4) Continue atorvastatin. 5) Out-patient cardiac follow up with Dr. Powell for possible ischemic work up as out-pt. Please call us for reconsult as needed.
[2018-02-24] MEDS ORDERED: SODIUM CHLORIDE 250 ML IV PRN (14:41)
[2018-02-24] MEDS ORDERED: HEPARIN NA (PORCINE) 5,000 UNITS/ML 1ML VIAL IVPUSH ONE (14:45)
[2018-02-24] MEDS ORDERED: ATORVASTATIN CA 40 MG TABLET (FP) PO SCH (22:00)
[2018-02-24] MEDS ORDERED: GABAPENTIN 100 MG CAPSULE (FP) PO SCH (22:00)
[2018-02-25] MEDS: HEPARIN NA (PORCINE) 5,000 UNITS/ML 1ML VIAL SQ SCH (06:24)
[2018-02-25] MEDS: INSULIN SLIDING SCALE (NOVOLOG) 1 VIAL SQ SCH (06:24)
[2018-02-25] MEDS ORDERED: PT OWN MED DRAWER 7, Y5N ONE (09:17)
--- NOTE | 2018-02-25 09:39 | DS ---
Physical Exam: SUBJECTIVE: Patient seen and examined at bed side this morning. States she feels better. Chest pain and shortness of breath has resolved. Review of systems negative. No acute overnight events. No events in Tele monitor. OBJECTIVE: Vital Signs Period Temp Pulse Resp BP Sys/Rodriguez Pulse Ox Last 24 Hr 97.8 F-98.9 F 70-86 18-20 93-155/52-76 PHYSICAL EXAM GENERAL: Elderly female, sitting in bed, eating breakfast, is awake, alert, and fully oriented, in no acute distress. HEAD: Normal with no signs of trauma. EYES: EOM intact, no pallor or icterus. ENT: Ears normal, moist mucous membranes. NECK: Supple. LUNGS: B/L breath sounds equal, no added sounds. HEART: Regular rate and rhythm, S1, S2 with systolic murmur. ABDOMEN: Soft, nontender,no organomegaly. UPPER EXTREMITIES: 2+ pulses, warm, well-perfused. No peripheral edema. + Fistula on the right arm with palpable thrill LOWER EXTREMITIES: 2+ pulses, warm, well-perfused. No calf tenderness. No peripheral edema. LOWER EXTREMITIES: NEUROLOGICAL: No facial droop. Cranial nerves II through XII grossly intact. Normal speech, gait not observed. PSYCH: Normal mood, normal affect. SKIN: Warm, dry, normal turgor, no rashes or lesions noted. LABS Laboratory Results - last 24 hr 02/24/18 02/24/18 02/24/18 12:40 15:08 21:24 POC Glucometer 150 86 Hep C Ab Diagnostic <0.1 02/25/18 05:47 POC Glucometer 117 Hep C Ab Diagnostic CTA: No CT evidence of dissection, aneurysm, intramural hematoma, or penetrating atherosclerotic ulceration. As on previous chest CT (10/11/17), there is extensive noncalcified and calcified atherosclerotic plaque along the thoracoabdominal aorta and partially imaged iliac vasculature. HOSPITAL COURSE: Date of Admission:02/23/18 Date of Discharge: 02/25/18 Patient is a 71 year old female with past medical history of ESRD on HD (TTS), HTN, HLD, CAD s/p CABG, DM, small bowel resection, CVA, ventral hernia, presented to the ED for intermittent chest pain for the past 3 days. Patient reported pain was midsternal, pressure-like 8/10, radiating to her back with no alleviating/aggravating factors. Admitted to rule out ACS, dissection and PE. CTA chest/abdomen done which showed no acute pathology. Echo from (10/2017) showed: moderate atrial dilatation, Normal LV function, moderate mitral regurgitation. Cardiology was consulted who recommended medical management and outpatient follow up for possible ischemic work up. Carvedilol was increased to 12.5 mg BID for better heart rate and BP control. Added Aspirin 81 mg daily and Imdur 30 mg daily. Patient is hemodynamically stable, symptom has completely resolved. Hence stable to be discharged home. Plan of care explained to the patient. She verbalized understanding. Minutes to complete discharge: 45 Discharge Summary Reason For Visit: WEAKNESS CHEST PAIN POSITIVE D-DIMER Current Active Problems Atypical chest pain (Acute) Chest pain (Acute) D-dimer, elevated (Acute) SOB (shortness of breath) (Acute) Weakness (Acute) Dialysis patient (Chronic) ESRD (end stage renal disease) (Chronic) Condition: Improved - Instructions Diet, Activity, Other Instructions: You were admitted for evaluation of chest pain. Pulmonary embolism, heart attack was ruled out. Most likely the chest pain was atypical. MEDICATIONS: We adjusted your medications: 1. Add aspirin 81 mg daily and Imdur 30 mg daily. 2. Increase Carvedilol to 12.5 mg BID for better heart rate and BP control. 3. Resume other home medications DIET: Follow renal diet/low sodium diet ACTIVITY: As tolerated FOLLOW UPs: With your blocker heated metal forms within a week With your primary physician/director of bands in 2 weeks. Referrals: Gasper Hensley MD [Staff Physician] - 1 Week Yadira Mosquera MD [Staff Physician] - Disposition: HOME - Home Medications Comprehensive Discharge Medication List: Ambulatory Orders Gabapentin 100 mg PO HS 09/20/16 Albuterol 2.5/Ipratropium 0.5 [Duoneb -] 1 amp NEB Q6H PRN #120 amp 09/26/17 Amlodipine Besylate [Norvasc -] 10 mg PO DAILY #30 tablet 09/26/17 Nebulizer [Aeroeclipse II] 1 each MC PRN PRN #1 each 09/26/17 Witch Lupis 50% (Tucks) [Tucks Pads -] 1 pad TP PRN PRN #30 pad 09/26/17 Pyridoxine HCl (Vitamin B6) [Vitamin B-6] 100 mg PO DAILY 09/27/17 Atorvastatin Ca [Lipitor] 40 mg PO DAILY 10/10/17 Pantoprazole Sodium [Protonix] 40 mg PO DAILY #30 tablet. 10/12/17 Carvedilol 12.5 mg PO BID #60 tablet 02/25/18 This patient is new to me today: Yes Date on this admission: 02/25/18 Emergency Visit: Yes ED Registration Date: 02/23/18 Care time: The patient presented to the Emergency Department on the above date and was hospitalized for further evaluation of their emergent condition. Critical Care patient: No - Discharge Referral Referred to [facility] No
[2018-02-25] MEDS: amLODIPine BESYLATE 10 MG TABLET (FP) PO SCH (09:40)
[2018-02-25] MEDS: CARVEDILOL 6.25 MG TABLET (FP) PO SCH (09:40)
[2018-02-25] MEDS: PANTOPRAZOLE 40 MG TABLET (FP) PO SCH (09:40)
[2018-02-25] MEDS: PYRIDOXINE HCL (B-6) 50 MG TABLET (FP) PO SCH (09:41)
[2018-02-25 10:06] VITALS: BP 147/81; PULSE 79; TEMP 98.3
--- NOTE | 2018-02-25 19:30 | EKG ---
Test Reason : Blood Pressure : / mmHG Vent. Rate : 073 BPM Atrial Rate : 073 BPM P-R Int : 198 ms QRS Dur : 106 ms QT Int : 394 ms P-R-T Axes : 021 015 078 degrees QTc Int : 434 ms NORMAL SINUS RHYTHM WHEN COMPARED WITH ECG OF 10-OCT-2017 08:39, Confirmed by AMBER HERNANDEZ, MANDA ([id number]) on 02/25/2018 7:30:15 PM Referred By: Confirmed By:MANDA CLARK MD
[2018-02-25] MEDS ORDERED: CARVEDILOL 6.25 MG TABLET (FP) PO SCH (22:00)
[2018-02-26 22:08] LABS: HBSAG SCREEN Negative (Negative); HEP A AB, IGM Negative (Negative); HEP B CORE AB, TOT Negative (Negative)
== END 2018-02-25 11:49 | disposition home or self-care (01) | DRG 198 ==
LOC: JER 17:44 → JERBED 20:51 → J4W 02-24 01:22
PROVIDERS: ADMIT Internal Medicine; ATTEND Internal Medicine
PROC: 5A1D70Z Performance of Urinary Filtration, Intermittent, Less than 6 Hours Per Day (ICD-10-PCS; principal; 2018-02-24)
DX: R07.89 Other chest pain (principal); E11.22 Type 2 diabetes mellitus with diabetic chronic kidney disease; I12.0 Hypertensive chronic kidney disease with stage 5 chronic kidney disease or end stage renal disease; N18.6 End stage renal disease; E87.5 Hyperkalemia; I25.10 Atherosclerotic heart disease of native coronary artery without angina pectoris; E78.5 Hyperlipidemia, unspecified; D64.9 Anemia, unspecified; Z99.2 Dependence on renal dialysis; Z86.73 Personal history of transient ischemic attack (TIA), and cerebral infarction without residual deficits; D35.02 Benign neoplasm of left adrenal gland; I34.0 Nonrheumatic mitral (valve) insufficiency; Z95.1 Presence of aortocoronary bypass graft
CPT/HCPCS: 36415; 71046-TC-FY; 71275-TC; 74175-TC; 80053; 82962; 83735; 84100; 84484; 85025; 85379; 85610; 85730; 86704; 86706; 86708; 86803; 87340; 93005; 93010; 94761; 99285-25; J1644; J7030

== ENCOUNTER 2018-04-13 17:33 | Inpatient (IN) | payer OTHER ==
[2018-04-13] MEDS ORDERED: ONDANSETRON 4 MG/2 ML VIAL IVPUSH ONE (17:50)
[2018-04-13] MEDS ORDERED: ONDANSETRON 4 MG/2 ML VIAL ONE (17:59)
[2018-04-13] MEDS ORDERED: PANTOPRAZOLE SODIUM 40 MG/100 ML BAG IVPB ONE (18:01)
[2018-04-13 23:03] LABS: ARTERIAL BLD GAS O2 SATURATION 99.3 % (90-98.9); ARTERIAL BLOOD GAS BASE EXCESS -4.7 meq/l (-2-2); ARTERIAL BLOOD GAS PCO2 32.5 mmHg (35-45); ARTERIAL BLOOD GAS pH 7.39 (7.35-7.45)
[2018-04-13 23:20] LABS: INR 0.96 (0.83-1.09); PROTHROMBIN TIME (PATIENT) 11.3 SEC (9.7-13.0)
[2018-04-13 23:21] LABS: HEMATOCRIT 33.6 % (32.4-45.2); HEMOGLOBIN 11.2 GM/dL (10.7-15.3); LYMPH % 25.2 % (8-40); MCH 31.8 pg (25.7-33.7); MCHC 33.2 g/dl (32.0-36.0); MEAN CELL VOLUME 95.6 fl (80-96); MEAN PLT VOLUME 9.8 fl (7.5-11.1); NEUT % 66.4 % (42.8-82.8); PLATELET COUNT 291 K/MM3 (134-434); RBC 3.52 M/mm3 (3.60-5.2); RDW 16.2 % (11.6-15.6); WHITE BLOOD COUNT 7.7 K/mm3 (4.0-10.0)
[2018-04-13 23:22] LABS: EOS % 2.6 % (0-4.5); MONO % 4.8 % (3.8-10.2)
[2018-04-13 23:31] LABS: ALBUMIN 3.6 g/dl (3.4-5.0); ALK PHOS 182 U/L (45-117); ANION GAP 14 MMOL/L (8-16); BILIRUBIN,TOTAL 0.2 mg/dL (0.2-1); BLOOD UREA NITROGEN 73 mg/dL (7-18); CALCIUM 9.3 mg/dL (8.5-10.1); CHLORIDE 97 mmol/L (98-107); CO2 23 mmol/L (21-32); CREATININE 7.3 mg/dL (0.55-1.3); GLUCOSE,RANDOM 129 mg/dL (74-106); LIPASE 702 U/L (73-393); MAGNESIUM 2.9 mg/dL (1.8-2.4); POTASSIUM 5.3 mmol/L (3.5-5.1); SGOT/AST 14 U/L (15-37); SGPT/ALT 16 U/L (13-61); SODIUM 134 mmol/L (136-145); TOT PROT 7.2 g/dl (6.4-8.2)
[2018-04-13] MEDS ORDERED: ACETAMINOPHEN INJECTION 100 ML IVPB ONE (23:54)
[2018-04-14 02:25] LABS: HEMATOCRIT 27.2 % (32.4-45.2); HEMOGLOBIN 9.2 GM/dL (10.7-15.3); MCH 32.2 pg (25.7-33.7); MCHC 33.9 g/dl (32.0-36.0); MEAN CELL VOLUME 95.1 fl (80-96); MEAN PLT VOLUME 9.6 fl (7.5-11.1); PLATELET COUNT 241 K/MM3 (134-434); RBC 2.86 M/mm3 (3.60-5.2); RDW 15.4 % (11.6-15.6); WHITE BLOOD COUNT 10.9 K/mm3 (4.0-10.0)
--- NOTE | 2018-04-14 02:50 | PDOC ---
ED Treatment Course - LABORATORY CBC & Chemistry Diagram: 04/13/18 17:49 04/13/18 17:50 - ADDITIONAL ORDERS Additional order review: Laboratory Results 04/13/18 04/13/18 04/13/18 23:01 17:54 17:50 PT with INR INR PTT (Actin FS) Anticoagulation Therapy Puncture Site ABG pH ABG pCO2 at Pt Temp ABG pO2 at Pt Temp ABG HCO3 ABG O2 Sat (Measured) ABG O2 Content ABG Base Excess Francisco Test Carboxyhemoglobin Methemoglobin O2 Delivery Device Oxygen Flow Rate Vent Mode Vent Rate Mechanical Rate Pressure Support Vent Sodium Potassium Chloride Carbon Dioxide Anion Gap BUN Creatinine Creat Clearance w eGFR POC Glucometer 181 Random Glucose Lactic Acid Calcium Magnesium Total Bilirubin AST ALT Alkaline Phosphatase Creatine Kinase Troponin I B-Natriuretic Peptide 69428.7 H Total Protein Albumin Lipase Blood Type O POSITIVE Antibody Screen Negative Crossmatch See Detail 04/13/18 04/13/18 04/13/18 17:50 17:50 17:50 PT with INR 11.30 INR 0.96 PTT (Actin FS) Anticoagulation Therapy Puncture Site ABG pH ABG pCO2 at Pt Temp ABG pO2 at Pt Temp ABG HCO3 ABG O2 Sat (Measured) ABG O2 Content ABG Base Excess Francisco Test Carboxyhemoglobin Methemoglobin O2 Delivery Device Oxygen Flow Rate Vent Mode Vent Rate Mechanical Rate Pressure Support Vent Sodium 134 L Potassium 5.3 H Chloride 97 L Carbon Dioxide 23 Anion Gap 14 BUN 73 H Creatinine 7.3 H Creat Clearance w eGFR 5.47 POC Glucometer Random Glucose 129 H Lactic Acid 1.7 Calcium 9.3 Magnesium 2.9 H Total Bilirubin 0.2 AST 14 L ALT 16 Alkaline Phosphatase 182 H Creatine Kinase 62 Troponin I < 0.02 B-Natriuretic Peptide Total Protein 7.2 Albumin 3.6 Lipase 702 H Blood Type Antibody Screen Crossmatch 04/13/18 04/13/18 04/13/18 17:50 17:49 17:49 PT with INR INR PTT (Actin FS) 33.9 Anticoagulation Therapy No Result Required. Puncture Site No Result Required. ABG pH 7.39 ABG pCO2 at Pt Temp 32.5 L ABG pO2 at Pt Temp 163.0 H* D ABG HCO3 19.1 L ABG O2 Sat (Measured) 99.3 H ABG O2 Content 13.6 L ABG Base Excess -4.7 L Francisco Test No Result Required. Carboxyhemoglobin 1.0 Methemoglobin 0.3 L O2 Delivery Device No Result Required. Oxygen Flow Rate No Result Required. Vent Mode No Result Required. Vent Rate No Result Required. Mechanical Rate No Result Required. Pressure Support Vent No Result Required. Sodium Potassium Chloride Carbon Dioxide Anion Gap BUN Creatinine Creat Clearance w eGFR POC Glucometer Random Glucose Lactic Acid Calcium Magnesium Total Bilirubin AST ALT Alkaline Phosphatase Creatine Kinase Troponin I B-Natriuretic Peptide Total Protein Albumin Lipase Blood Type Antibody Screen Crossmatch 04/13/18 04/13/18 23:01 17:49 RBC 3.52 L MCV 95.6 MCHC 33.2 RDW 16.2 H MPV 9.8 D Neutrophils % 66.4 Lymphocytes % 25.2 D Monocytes % 4.8 Eosinophils % 2.6 Basophils % 1.0 POC Glucometer 181 Medical Decision Making - Medical Decision Making 04/14/18 02:49 pt was admitted by Dr. Green during downtime. please see paper charts for full documentation. this is a retroactive admission order from downtime *DC/Admit/Observation/Transfer Diagnosis at time of Disposition: Dialysis patient GI bleed Qualifiers: GI bleed type/associated pathology: unspecified gastrointestinal hemorrhage type Qualified Code(s): K92.2 - Gastrointestinal hemorrhage, unspecified - Discharge Dispostion Condition at time of disposition: Critical Decision to Admit order: Yes - Referrals Referrals: Ricco Moffett MD [Primary Care Provider] - - Patient Instructions - Post Discharge Activity
--- NOTE | 2018-04-14 04:06 | CON.GI ---
Consult Consult Specialty:: GI Referred by:: Dr Green Reason for Consultation:: lower GI bleed - History of Present Illness Chief Complaint: 72 y.o. F with ESRD on dialysis presents with L-sided abdominal pain and lower GI bleeding. Pt was seen by me in ER last evening while computer system was down. Pt gives history of past abdominal surgery but she does not know why, but states part of her intestines were removed. 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: CVA Cardio/Vascular: Yes: CAD, CHF, HTN, ID, Hyperlipdemia Gastrointestinal: Yes: Other (unknown abdominal surgery) Renal/: Yes: Renal Failure, Hemodialysis Psych: Yes: Anxiety Musculoskeletal: Yes: Chronic low back pain Endocrine: Yes: Diabetes Mellitus - Past Surgical History Past Surgical History: Yes: AV Fistula/Graft, CABG Additional Surgical History: unknown abdominal resection - Alcohol/Substance Use Hx Alcohol Use: No History of Substance Use: reports: None - Smoking History Smoking history: Never smoked Have you smoked in the past 12 months: No Aproximately how many cigarettes per day: 0 - Social History Usual Living Arrangement: With Child ADL: Independent History of Recent Travel: No Home Medications - Allergies Allergies/Adverse Reactions: Allergies Allergy/AdvReac Type Severity Reaction Status Date / Time No Known Allergies Allergy Verified 02/23/18 18:23 - Home Medications Home Medications: Ambulatory Orders Gabapentin 100 mg PO HS 09/20/16 Albuterol 2.5/Ipratropium 0.5 [Duoneb -] 1 amp NEB Q6H PRN #120 amp 09/26/17 Amlodipine Besylate [Norvasc -] 10 mg PO DAILY #30 tablet 09/26/17 Nebulizer [Aeroeclipse II] 1 each MC PRN PRN #1 each 09/26/17 Witch Lupis 50% (Tucks) [Tucks Pads -] 1 pad TP PRN PRN #30 pad 09/26/17 Pyridoxine HCl (Vitamin B6) [Vitamin B-6] 100 mg PO DAILY 09/27/17 Atorvastatin Ca [Lipitor] 40 mg PO DAILY 10/10/17 Pantoprazole Sodium [Protonix] 40 mg PO DAILY #30 tablet. 10/12/17 Carvedilol 12.5 mg PO BID #60 tablet 02/25/18 Physical Exam-GI Vital Signs: Vital Signs Temperature 97.9 F 04/14/18 02:52 Pulse Rate 81 04/14/18 02:52 Respiratory Rate 21 H 04/14/18 02:52 Blood Pressure 123/60 04/14/18 02:52 O2 Sat by Pulse Oximetry (%) 100 04/14/18 02:52 ...Palpate: Yes: Tenderness (minimal LLQ tenderness. No rebound tenderness) ...Rectal Exam: Yes: Guaiac Positive (milena blood) Labs: CBC, BMP 04/14/18 02:00 04/13/18 17:50 INR, PTT INR 0.96 (0.83-1.09) 04/13/18 17:50 Imaging - Results Cat Scan: Image Reviewed (On my review yesterday it looks like there may be inflammatory changes in the rectum and rectosigmoid, but official reading pending. I did not see anything to suggest small bowel ischemia.) Problem List - Problems (1) GI bleed Code(s): K92.2 - GASTROINTESTINAL HEMORRHAGE, UNSPECIFIED Qualifiers: GI bleed type/associated pathology: unspecified gastrointestinal hemorrhage type Qualified Code(s): K92.2 - Gastrointestinal hemorrhage, unspecified Assessment/Plan Lower GI bleeding with a suspicion for ischemic colitis. Ischemic colitis generally resolves without surgical intervention.Agree with transfusion, ICU monitoring. Surgery should be consulted should she deteriorate but on my exam there was no sign of peritonitis.
[2018-04-14] MEDS ORDERED: ACETAMINOPHEN 1000 MG/100 ML VIAL (NON FORMULARY) IVPB PRN (05:26)
[2018-04-14] MEDS: SODIUM CHLORIDE 1,000 ML IV SCH ×3 (05:43→17:27)
[2018-04-14 05:57] LABS: HEMATOCRIT 23.8 % (32.4-45.2); MCH 31.7 pg (25.7-33.7); MCHC 33.6 g/dl (32.0-36.0); MEAN CELL VOLUME 94.6 fl (80-96); MEAN PLT VOLUME 8.9 fl (7.5-11.1); PLATELET COUNT 218 K/MM3 (134-434); RBC 2.51 M/mm3 (3.60-5.2); RDW 15.5 % (11.6-15.6); WHITE BLOOD COUNT 8.8 K/mm3 (4.0-10.0)
[2018-04-14 06:41] LABS: ALBUMIN 2.6 g/dl (3.4-5.0); ALK PHOS 121 U/L (45-117); ANION GAP 13 MMOL/L (8-16); BILIRUBIN,TOTAL 0.2 mg/dL (0.2-1); BLOOD UREA NITROGEN 81 mg/dL (7-18); CALCIUM 8.2 mg/dL (8.5-10.1); CHLORIDE 101 mmol/L (98-107); CO2 20 mmol/L (21-32); GLUCOSE,RANDOM 139 mg/dL (74-106); MAGNESIUM 2.5 mg/dL (1.8-2.4); PHOSPHOROUS 5.7 mg/dL (2.5-4.9); SGOT/AST 10 U/L (15-37); SGPT/ALT 12 U/L (13-61); SODIUM 134 mmol/L (136-145); TOT PROT 5.3 g/dl (6.4-8.2)
[2018-04-14 07:01] LABS: CREATININE 7.8 mg/dL (0.55-1.3)
--- NOTE | 2018-04-14 07:04 | CON.NEP ---
Consult Consult Specialty:: Nephrology Reason for Consultation:: esrd - History of Present Illness Chief Complaint: bleeding History of Present Illness: This is a 72 year old woman with history of esrd, htn, abdominal hernia and some abdominal surgery who presented to emergency room with GI bleeding which was reported to be a liter by the triage nurse. She is currently in the icu and is comfortable except that she complains of pain in her gluteal area. She is on HD tiw on and sat at [facility] and her tool checker is Dr Moffett. 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: CVA Cardio/Vascular: Yes: CAD, CHF, HTN, MA, Hyperlipdemia Gastrointestinal: Yes: Other (unknown abdominal surgery) Renal/: Yes: Renal Failure, Hemodialysis Psych: Yes: Anxiety Musculoskeletal: Yes: Chronic low back pain Endocrine: Yes: Diabetes Mellitus - Past Surgical History Past Surgical History: Yes: AV Fistula/Graft, CABG Additional Surgical History: unknown abdominal resection - Alcohol/Substance Use Hx Alcohol Use: No History of Substance Use: reports: None - Smoking History Smoking history: Never smoked Have you smoked in the past 12 months: No Aproximately how many cigarettes per day: 0 - Social History Usual Living Arrangement: With Child ADL: Independent History of Recent Travel: No Home Medications - Allergies Allergies/Adverse Reactions: Allergies Allergy/AdvReac Type Severity Reaction Status Date / Time No Known Allergies Allergy Verified 02/23/18 18:23 - Home Medications Home Medications: Ambulatory Orders Gabapentin 100 mg PO HS 09/20/16 Albuterol 2.5/Ipratropium 0.5 [Duoneb -] 1 amp NEB Q6H PRN #120 amp 09/26/17 Amlodipine Besylate [Norvasc -] 10 mg PO DAILY #30 tablet 09/26/17 Nebulizer [Aeroeclipse II] 1 each MC PRN PRN #1 each 09/26/17 Witch Lupis 50% (Tucks) [Tucks Pads -] 1 pad TP PRN PRN #30 pad 09/26/17 Pyridoxine HCl (Vitamin B6) [Vitamin B-6] 100 mg PO DAILY 09/27/17 Atorvastatin Ca [Lipitor] 40 mg PO DAILY 10/10/17 Pantoprazole Sodium [Protonix] 40 mg PO DAILY #30 tablet. 10/12/17 Carvedilol 12.5 mg PO BID #60 tablet 02/25/18 Review of Systems - Review of Systems Constitutional: reports: No Symptoms Eyes: reports: No Symptoms HENT: reports: No Symptoms Neck: reports: No Symptoms Cardiovascular: reports: No Symptoms Respiratory: reports: No Symptoms Gastrointestinal: reports: Abdominal Pain, Rectal Bleeding Genitourinary: reports: No Symptoms Breasts: reports: No Symptoms Reported Musculoskeletal: reports: No Symptoms Integumentary: reports: No Symptoms Neurological: reports: No Symptoms Endocrine: reports: No Symptoms Hematology/Lymphatic: reports: No Symptoms Psychiatric: reports: No Symptoms Nephrology Consult - Height Height: 5 ft - Weight Weight: 168 lb 6.4 oz - BMI Body Mass Index (BMI): 32.8 - Lab Results CBC,BMP: CBC, BMP 04/14/18 05:30 Anion Gap: Anion Gap Anion Gap 13 MMOL/L (8-16) 04/14/18 05:30 - Physical Examination Vital Signs: Vital Signs Temperature 98.2 F 04/14/18 06:00 Pulse Rate 84 04/14/18 06:00 Respiratory Rate 12 04/14/18 06:00 Blood Pressure 117/70 04/14/18 06:00 O2 Sat by Pulse Oximetry (%) 100 04/14/18 02:52 Constitutional: Yes: No Distress Eyes: Yes: Conjunctiva Clear HENT: Yes: Atraumatic, Normocephalic Neck: Yes: Supple, Trachea Midline Cardiovascular: Yes: Regular Rate and Rhythm Respiratory: Yes: Regular, Diminished Gastrointestinal: Yes: Normal Bowel Sounds, Soft Renal/: No: Bladder Distention Access for Hemodialysis: AV Graft Musculoskeletal: Yes: WNL Extremities: Yes: WNL Edema: No Peripheral Pulses WNL: Yes Neurological: Yes: Alert, Oriented Psychiatric: Yes: Alert, Oriented Assessment/Plan IMPRESSION esrd hyperkalemia acute GI bleeding with development of blood loss anemia no evidence of fluid overload had cta last night but I see no report yet PLAN I have ordered hd for this morning will need to f/u hgb closely abd transfused as necessary particularly with reported h/o CABG will give aranesp obviously no heparin during hd MV
[2018-04-14] MEDS ORDERED: SODIUM CHLORIDE 250 ML IV PRN (07:09)
--- NOTE | 2018-04-14 07:25 | PN ---
Progress Note (short form) - Note Progress Note: c/o CP./ worse on deep inspiration. denies SOB, fever, chills, N/V/C/D had 2 bloody BM last night Current Medications Generic Name Dose Route Start Last Admin Trade Name Casimiroq PRN Reason Stop Dose Admin Acetaminophen 1,000 mg 04/14/18 05:26 04/13/18 23:00 Ofirmev Injection - IVPB 1,000 mg Q6H PRN Administration HEADACHE Epoetin Edil 3,000 unit 04/14/18 07:09 Procrit - SQ 04/14/18 07:10 ONCE ONE Sodium Chloride 1,000 mls @ 100 mls/hr 04/14/18 05:30 04/14/18 05:43 Normal Saline - IV 100 mls/hr ASDIR GRAYSON Administration Sodium Chloride 250 mls @ 3,000 mls/hr 04/14/18 07:09 Normal Saline - IV 04/15/18 07:09 PRN PRN Hypotension during Dialysis Last Vital Signs Temp Pulse Resp BP Pulse Ox 98.3 F 80 12 101/88 100 04/14/18 06:55 04/14/18 07:00 04/14/18 07:00 04/14/18 07:00 04/14/18 02:52 General NAD CV S1 S2 RRR no murmur/rub/gallop Lungs CTA anteriorly ABdomen soft NT/ND dull to percussion Extremities no pedal edema. +AV fistual RUE CBCD WBC 8.8 K/mm3 (4.0-10.0) 04/14/18 05:30 RBC 2.51 M/mm3 (3.60-5.2) L 04/14/18 05:30 Hgb 8.0 GM/dL (10.7-15.3) L 04/14/18 05:30 Hct 23.8 % (32.4-45.2) L 04/14/18 05:30 MCV 94.6 fl (80-96) 04/14/18 05:30 MCHC 33.6 g/dl (32.0-36.0) 04/14/18 05:30 RDW 15.5 % (11.6-15.6) 04/14/18 05:30 Plt Count 218 K/MM3 (134-434) 04/14/18 05:30 MPV 8.9 fl (7.5-11.1) 04/14/18 05:30 CMP Sodium 134 mmol/L (136-145) L 04/14/18 05:30 Potassium 6.0 mmol/L (3.5-5.1) H 04/14/18 05:30 Chloride 101 mmol/L (98-107) 04/14/18 05:30 Carbon Dioxide 20 mmol/L (21-32) L 04/14/18 05:30 Anion Gap 13 MMOL/L (8-16) 04/14/18 05:30 BUN 81 mg/dL (7-18) H 04/14/18 05:30 Creatinine 7.8 mg/dL (0.55-1.3) H* 04/14/18 05:30 Creat Clearance w eGFR 5.06 (>60) 04/14/18 05:30 Calcium 8.2 mg/dL (8.5-10.1) L 04/14/18 05:30 Total Bilirubin 0.2 mg/dL (0.2-1) 04/14/18 05:30 AST 10 U/L (15-37) L 04/14/18 05:30 ALT 12 U/L (13-61) L 04/14/18 05:30 Alkaline Phosphatase 121 U/L (45-117) H 04/14/18 05:30 Total Protein 5.3 g/dl (6.4-8.2) L 04/14/18 05:30 Albumin 2.6 g/dl (3.4-5.0) L 04/14/18 05:30 Assessment and PLan 72yo F [facility] PMH ESRD on HD, CHF, CVA, CAD, DM and CHF presented to the ER [facility] abdominal pain and BRBPR 1. Lower GI bleed- CTA done last night. awaiting read. no BM since this AM. received 1 unit PRBC with inappropriate response. will transfuse 1 unit PRBC at this time. trend Hgb Q8H,NPO, gentle IVF, GI on board 2. Hyperkalemia- currently receiving HD 3. ESRD on HD- currently on HD. resume normal schedule. nephro on board 4. CHF- appears clinically dry. will give gentle hydration. cont coreg 5. DM-does not take medications? will need to med rec. start BGM and iSS 6. DVT ppx- SCD 7. MICU monitoring Visit type - Emergency Visit Emergency Visit: Yes ED Registration Date: 04/14/18 Care time: The patient presented to the Emergency Department on the above date and was hospitalized for further evaluation of their emergent condition. - New Patient This patient is new to me today: Yes Date on this admission: 04/14/18 - Critical Care Critical Care patient: Yes Total Critical Care Time (in minutes): 40 Critical Care Statement: The care of this patient involved high complexity decision making to prevent further life threatening deterioration of the patient 's condition and/or to evaluate & treat vital organ system(s) failure or risk of failure. - Discharge Referral Referred to [facility] No
--- NOTE | 2018-04-14 09:49 | PN ---
Progress Note (short form) - Note Progress Note: Case discussed with Dr Desai. Pt denies any abdominal pain at this time. Abdomen is nontender. No further bleeding noted since admission to ICU. Continue to monitor H/H. No need for emergency endoscopy at this time. Problem List - Problems (1) GI bleed Code(s): K92.2 - GASTROINTESTINAL HEMORRHAGE, UNSPECIFIED Qualifiers: GI bleed type/associated pathology: unspecified gastrointestinal hemorrhage type Qualified Code(s): K92.2 - Gastrointestinal hemorrhage, unspecified
[2018-04-14] MEDS ORDERED: EPOETIN ALFA 3,000 UNIT/1 ML ML SQ ONE (10:00)
--- NOTE | 2018-04-14 11:08 | PN ---
Progress Note (short form) - Note Progress Note: PULM/CCM Pt seen and examined in ICU 24Hr; -pt admitted by Res overnight for possible GIB -had one episode of blood BM, no further, hemodynamics stable, some non focal abd pain -tolerated HD this am, 1 PRBC during HD, 1 Liter of ultrafiltration -team discussed with GI, no endo necessary Vital Signs Temp 97.7 F 04/14/18 10:00 Pulse 82 04/14/18 10:17 Resp 15 04/14/18 10:17 BP 119/58 L 04/14/18 10:17 Pulse Ox 100 04/14/18 09:00 Intake & Output 04/13/18 04/13/18 04/14/18 11:59 23:59 11:59 Intake Total 800 Balance 800 Weight 90.718 kg 76.385 kg Intake: IV 700 Normal Saline - 1,000 ml 700 @ 100 mls/hr IV ASDIR GRAYSON Rx#:[id number] IVPB 100 Other: Voiding Method Diaper # Unmeasured Voids Void 0 Bowel Movement No Height 5 ft 5 ft Body Mass Index (BMI) 39.0 32.8 Weight Measurement Method Built in [facility] Weight Measurement Method Est/Stated by Patient Ambulatory Orders Gabapentin 100 mg PO HS 09/20/16 Albuterol 2.5/Ipratropium 0.5 [Duoneb -] 1 amp NEB Q6H PRN #120 amp 09/26/17 Amlodipine Besylate [Norvasc -] 10 mg PO DAILY #30 tablet 09/26/17 Nebulizer [Aeroeclipse II] 1 each MC PRN PRN #1 each 09/26/17 Witch Lupis 50% (Tucks) [Tucks Pads -] 1 pad TP PRN PRN #30 pad 09/26/17 Pyridoxine HCl (Vitamin B6) [Vitamin B-6] 100 mg PO DAILY 09/27/17 Atorvastatin Ca [Lipitor] 40 mg PO DAILY 10/10/17 Pantoprazole Sodium [Protonix] 40 mg PO DAILY #30 tablet. 10/12/17 Carvedilol 12.5 mg PO BID #60 tablet 02/25/18 Current Medications Acetaminophen (Ofirmev Injection -) 1,000 mg IVPB Q6H PRN PRN Reason: HEADACHE Last Admin: 04/13/18 23:00 Dose: 1,000 mg Carvedilol (Coreg -) 12.5 mg PO BID GRAYSON Sodium Chloride (Normal Saline -) 1,000 mls @ 100 mls/hr IV ASDIR GRAYSON Last Admin: 04/14/18 05:43 Dose: 100 mls/hr Sodium Chloride (Normal Saline -) 250 mls @ 3,000 mls/hr IV PRN PRN PRN Reason: Hypotension during Dialysis Stop: 04/15/18 07:09 CBC, BMP 04/14/18 05:30 04/14/18 05:30 PE: GEN: awake alert, east timore[place] speaking, mild distress HEENT: PERRL, moist oral mucosa PULM: clear anterior CV: RRR ABD; soft, mildy diffusely tender, + BS EXT: R AVF with good thrill, trace edema, 2+ pulses NEURO: oriented, non focal A/ 72 y/o woman ESRD, vasculopathy with likely LGIB s/p 1 PRBC and HD this am p/ -serial CBC -transfuse less than Hgb 8 -GI following, NPO for now -restart home meds in AM -HD as per renal -if crit stable and no further bleeding x 24 ok for floor [id number]
[2018-04-14] MEDS: CARVEDILOL 12.5 MG TABLET (FP) PO SCH ×2 (11:38→21:30)
[2018-04-14 15:45] LABS: HEMATOCRIT 25.2 % (32.4-45.2); HEMOGLOBIN 8.8 GM/dL (10.7-15.3); MCH 32.9 pg (25.7-33.7); MCHC 35.1 g/dl (32.0-36.0); MEAN CELL VOLUME 93.9 fl (80-96); MEAN PLT VOLUME 9.3 fl (7.5-11.1); PLATELET COUNT 170 K/MM3 (134-434); RBC 2.69 M/mm3 (3.60-5.2); RDW 15.4 % (11.6-15.6); WHITE BLOOD COUNT 9.4 K/mm3 (4.0-10.0)
[2018-04-14] MEDS: ACETAMINOPHEN 325 MG TABLET (FP) PO PRN (18:38)
[2018-04-14 19:23] LABS: HEMATOCRIT 23.9 % (32.4-45.2); HEMOGLOBIN 8.4 GM/dL (10.7-15.3); MCH 33.1 pg (25.7-33.7); MCHC 35.3 g/dl (32.0-36.0); MEAN CELL VOLUME 93.9 fl (80-96); PLATELET COUNT 173 K/MM3 (134-434); RBC 2.55 M/mm3 (3.60-5.2); RDW 15.4 % (11.6-15.6); WHITE BLOOD COUNT 7.9 K/mm3 (4.0-10.0)
[2018-04-14] MEDS ORDERED: HYDROmorphone HCl 2 MG/ML VIAL IVPUSH ONE (21:30)
[2018-04-15 06:09] LABS: BASO % 0.5 % (0-2.0); EOS % 0.7 % (0-4.5); HEMATOCRIT 23.9 % (32.4-45.2); HEMOGLOBIN 8.1 GM/dL (10.7-15.3); LYMPH % 14.9 % (8-40); MCH 31.8 pg (25.7-33.7); MCHC 33.9 g/dl (32.0-36.0); MEAN CELL VOLUME 93.8 fl (80-96); MEAN PLT VOLUME 9.1 fl (7.5-11.1); MONO % 3.5 % (3.8-10.2); NEUT % 80.4 % (42.8-82.8); PLATELET COUNT 173 K/MM3 (134-434); RBC 2.55 M/mm3 (3.60-5.2); RDW 15.7 % (11.6-15.6); WHITE BLOOD COUNT 8.8 K/mm3 (4.0-10.0)
[2018-04-15 06:35] LABS: ANION GAP 8 MMOL/L (8-16); BLOOD UREA NITROGEN 38 mg/dL (7-18); CALCIUM 8.5 mg/dL (8.5-10.1); CHLORIDE 105 mmol/L (98-107); CO2 28 mmol/L (21-32); CREATININE 5.2 mg/dL (0.55-1.3); GLUCOSE,RANDOM 124 mg/dL (74-106); POTASSIUM 4.6 mmol/L (3.5-5.1); SODIUM 141 mmol/L (136-145)
[2018-04-15] MEDS ORDERED: IRON SUCROSE INJECTION 100 MG in SODIUM CHLORIDE 95 ML IVPB ONE (08:10)
--- NOTE | 2018-04-15 08:10 | PN ---
Progress Note (short form) - Note Progress Note: RENAL Pt is awake and alert c/o weakness breathing comfortably no BM no bleeding Last Vital Signs Temp Pulse Resp BP Pulse Ox 98.0 F 82 16 154/66 100 04/15/18 07:00 04/15/18 07:00 04/15/18 07:00 04/15/18 07:00 04/14/18 21:00 lungs celar cvs s1s2 rr abd soft ext no edema neuro a+ox3 CBC, BMP 04/15/18 05:30 04/15/18 05:30 Current Medications Generic Name Dose Route Start Last Admin Trade Name Freq PRN Reason Stop Dose Admin Acetaminophen 1,000 mg 04/14/18 05:26 04/13/18 23:00 Ofirmev Injection - IVPB 1,000 mg Q6H PRN Administration HEADACHE Acetaminophen 650 mg 04/14/18 18:32 04/14/18 18:38 Tylenol - PO 650 mg Q4H PRN Administration HEADACHE Carvedilol 12.5 mg 04/14/18 10:00 04/14/18 21:30 Coreg - PO 12.5 mg BID GRAYSON Administration Fentanyl 25 mcg 04/14/18 11:08 04/15/18 07:20 Sublimaze Injection - IVPUSH 04/15/18 11:14 25 mcg Q2H PRN Administration PAIN IMPRESSION s/p GI bleeding with development of acute blood loss anemia esrd htn h/o ruptured intestine- s/p bowel resection h/o cabg PLAN montor hgb closely she was transfused yesterday and might need to be transfused again was given epogen yesterday can get iv iron MV
--- NOTE | 2018-04-15 08:16 | PN ---
Progress Note (short form) - Note Progress Note: PULM/CCM Pt seen and examined in ICU 24Hr; -HD yesterday, 1 PRBC, 1L UF -numerous non-specific complaints -no further bloody out Vital Signs Temp 97.7 F 04/14/18 10:00 Pulse 82 04/14/18 10:17 Resp 15 04/14/18 10:17 BP 119/58 L 04/14/18 10:17 Pulse Ox 100 04/14/18 09:00 Intake & Output 04/13/18 04/13/18 04/14/18 11:59 23:59 11:59 Intake Total 800 Balance 800 Weight 90.718 kg 76.385 kg Intake: IV 700 Normal Saline - 1,000 ml 700 @ 100 mls/hr IV ASDIR GRAYSON Rx#:[id number] IVPB 100 Other: Voiding Method Diaper # Unmeasured Voids Void 0 Bowel Movement No Height 5 ft 5 ft Body Mass Index (BMI) 39.0 32.8 Weight Measurement Method Built in [facility] Weight Measurement Method Est/Stated by Patient Ambulatory Orders Gabapentin 100 mg PO HS 09/20/16 Albuterol 2.5/Ipratropium 0.5 [Duoneb -] 1 amp NEB Q6H PRN #120 amp 09/26/17 Amlodipine Besylate [Norvasc -] 10 mg PO DAILY #30 tablet 09/26/17 Nebulizer [Aeroeclipse II] 1 each MC PRN PRN #1 each 09/26/17 Witch Lupis 50% (Tucks) [Tucks Pads -] 1 pad TP PRN PRN #30 pad 09/26/17 Pyridoxine HCl (Vitamin B6) [Vitamin B-6] 100 mg PO DAILY 09/27/17 Atorvastatin Ca [Lipitor] 40 mg PO DAILY 10/10/17 Pantoprazole Sodium [Protonix] 40 mg PO DAILY #30 tablet. 10/12/17 Carvedilol 12.5 mg PO BID #60 tablet 02/25/18 CBC, BMP 04/14/18 05:30 04/14/18 05:30 PE: GEN: awake alert, congolese speaking, mild distress HEENT: PERRL, moist oral mucosa PULM: clear anterior CV: RRR ABD; soft, mildy diffusely tender, + BS EXT: R AVF with good thrill, trace edema, 2+ pulses NEURO: oriented, non focal A/ 72 y/o woman ESRD, vasculopathy with likely LGIB s/p 1 PRBC and HD this am p/ -serial CBC -transfuse less than Hgb 8 -getting EPO -GI following, starting diet as crit stable and no further overt bleed -restart home meds in AM -HD as per renal -if crit stable and no further bleeding x 24 ok for floor Dung ACNP [id number]
[2018-04-15] MEDS: CARVEDILOL 12.5 MG TABLET (FP) PO SCH ×2 (09:42→21:03)
--- NOTE | 2018-04-15 09:51 | PN ---
Progress Note (short form) - Note Progress Note: Case discussed with Dr Desai of nephrology, Dr Razo of ICU. Still with slowly dropping Hgb. CT scan reading appreciated, and on review of CT scan I can see what Dr Sewell noted, namely, a trickle of active bleeding in the cecum. 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 Would suggest colonoscopy with argon plasma coagulation of any AVMs seen in cecum. This carries a risk of further bleeding and perforation. There is also a possibility that she has a cecal tumor but that is less likely to be a cause of such extensive bleeding. Will wait for family members to show up today so Ms Posey can discuss her options with her family members. Problem List - Problems (1) GI bleed Code(s): K92.2 - GASTROINTESTINAL HEMORRHAGE, UNSPECIFIED Qualifiers: GI bleed type/associated pathology: unspecified gastrointestinal hemorrhage type Qualified Code(s): K92.2 - Gastrointestinal hemorrhage, unspecified
[2018-04-15] MEDS ORDERED: ONDANSETRON 4 MG/2 ML VIAL IVPUSH PRN (10:00)
--- NOTE | 2018-04-15 10:41 | PN ---
Teaching Attending Note Name of Resident: Mesfin Santacruz ATTENDING PHYSICIAN STATEMENT I saw and evaluated the patient. I reviewed the resident's note and discussed the case with the resident. I agree with the resident's findings and plan as documented. SUBJECTIVE:has some abdominal tenderness but controlled iwthout medications. no BM or BRBPR. denies CP, SOB, fever, chills, N/V/ OBJECTIVE: Last Vital Signs Temp Pulse Resp BP Pulse Ox 98.5 F 76 18 145/72 100 04/15/18 10:00 04/15/18 10:00 04/15/18 10:00 04/15/18 10:04/15/18 08:00 General NAD CV S1 S2 RRR Lungs CTA B/L anteriorly ABdomen soft NT/ND obese ASSESSMENT AND PLAN: 72yo F wtih PMH ESRD on HD, CHF, CVA, CAD, DM and CHF presented to the ER wtih abdominal pain and BRBPR 1. Lower GI bleed- bleeding noted in the cecum, likely AVM. plan for colonoscopy tomorrow. received 2 units PRBC without appropriate response. no noted bleeding at this time. cont to trend Hgb Q8H, NPO tonight for scope. GI on board 2. Hyperkalemia- resolved 3. ESRD on HD-. resume normal schedule. nephro on board 4. CHF- appears euvolemic. cont coreg 5. DM-does not take medications? will need to med rec. start BGM and iSS 6. DVT ppx- SCD 7. MICU monitoring. if repeat Hgb is stable can transfer to floors The care of this patient involved high complexity decision making to prevent further life threatening deterioration of the patient's condition and/or to evaluate & treat vital organ system(s) failure or risk of failure. 36mins
--- NOTE | 2018-04-15 11:02 | PN ---
Physical Exam: SUBJECTIVE: Patient seen and examined at bedside. HD yesterday, 1 PRBC, 1L UF. today has some abdominal tenderness but controlled w/o medications. no BM or BRBPR. denies fever, chills, CP, SOB, N/V/D, urinary sxs OBJECTIVE: Vital Signs Period Temp Pulse Resp BP Sys/Rodriguez Pulse Ox Last 24 Hr 97.7 F-98.5 F 61-83 12-18 111-154/51-79 100-100 GENERAL: The patient is awake, alert, and fully oriented, in no acute distress. HEAD: Normal with no signs of trauma. EYES: PERRL, extraocular movements intact, sclera anicteric, conjunctiva clear. No ptosis. ENT: Ears normal, nares patent, oropharynx clear without exudates, moist mucous membranes. NECK: Trachea midline, full range of motion, supple. LUNGS: Breath sounds equal, clear to auscultation bilaterally, no wheezes, no crackles, no accessory muscle use. HEART: Regular rate and rhythm, S1, S2 without murmur, rub or gallop. ABDOMEN: Soft, mildy diffusely tender, nondistended, normoactive bowel sounds, no guarding, no rebound, no masses. EXTREMITIES: 2+ pulses, warm, well-perfused, no edema. R AVF with good thrill NEUROLOGICAL: Cranial nerves II through XII grossly intact. Normal speech, gait not observed. PSYCH: Normal mood, normal affect. SKIN: Warm, dry, normal turgor, no rashes or lesions noted Laboratory Results - last 24 hr 04/14/18 04/14/18 04/14/18 14:14 15:15 18:30 WBC 9.4 7.9 RBC 2.69 L 2.55 L Hgb 8.8 L 8.4 L Hct 25.2 L 23.9 L MCV 93.9 93.9 MCH 32.9 33.1 MCHC 35.1 35.3 RDW 15.4 15.4 Plt Count 170 D 173 MPV 9.3 9.0 Absolute Neuts (auto) Neutrophils % Lymphocytes % Monocytes % Eosinophils % Basophils % Nucleated RBC % Sodium Potassium Chloride Carbon Dioxide Anion Gap BUN Creatinine Creat Clearance w eGFR POC Glucometer 88 Random Glucose Calcium 04/14/18 04/15/18 04/15/18 20:20 03:27 05:30 WBC 8.8 RBC 2.55 L Hgb 8.1 L Hct 23.9 L MCV 93.8 MCH 31.8 MCHC 33.9 RDW 15.7 H Plt Count 173 MPV 9.1 Absolute Neuts (auto) 7.1 Neutrophils % 80.4 D Lymphocytes % 14.9 D Monocytes % 3.5 L Eosinophils % 0.7 Basophils % 0.5 Nucleated RBC % 0 Sodium Potassium Chloride Carbon Dioxide Anion Gap BUN Creatinine Creat Clearance w eGFR POC Glucometer 110 134 Random Glucose Calcium 04/15/18 05:30 WBC RBC Hgb Hct MCV MCH MCHC RDW Plt Count MPV Absolute Neuts (auto) Neutrophils % Lymphocytes % Monocytes % Eosinophils % Basophils % Nucleated RBC % Sodium 141 Potassium 4.6 Chloride 105 Carbon Dioxide 28 Anion Gap 8 BUN 38 H Creatinine 5.2 H Creat Clearance w eGFR 8.09 POC Glucometer Random Glucose 124 H Calcium 8.5 Active Medications Generic Name Dose Route Start Last Admin Trade Name Freq PRN Reason Stop Dose Admin Acetaminophen 1,000 mg 04/14/18 05:26 04/13/18 23:00 Ofirmev Injection - IVPB 1,000 mg Q6H PRN Administration HEADACHE Acetaminophen 650 mg 04/14/18 18:32 04/14/18 18:38 Tylenol - PO 650 mg Q4H PRN Administration HEADACHE Carvedilol 12.5 mg 04/14/18 10:00 04/15/18 09:42 Coreg - PO 12.5 mg BID GRAYSON Administration Fentanyl 25 mcg 04/14/18 11:08 04/15/18 07:20 Sublimaze Injection - IVPUSH 04/15/18 11:14 25 mcg Q2H PRN Administration PAIN Ondansetron HCl 4 mg 04/15/18 10:00 04/15/18 10:21 Zofran Injection IVPUSH 4 mg Q4H PRN Administration NAUSEA AND/OR VOMITING [id number] CT/ABDOMEN/PELVIS CTA W/WO CONTR Abdomen/pelvis CT angiography (without and with contrast) Clinical information: abdominal pain, rectal bleeding Multiplanar, multiphase imaging was performed following the intravenous bolus administration of nonionic contrast in addition to preliminary noncontrast scanning. Contrast extravasation is seen within the cecum on arterial phase and portal venous phase imaging. Extravasated contrast is noted to principally accumulate along the lateral and posterior lateral cecal wall. On noncontrast imaging mildly hyperdense fluid is seen within the length of the colon including the rectum presumably representing blood. The remainder of the exam demonstrates no definite interval change in comparison to a prior CT study 02/23/2018. Very extensive atherosclerotic vascular calcifications are noted. Mild cardiomegaly. Status post median sternotomy with CABG. Marked bilateral renal atrophy. Bilateral renal cortical simple and complex cysts without obvious interval change. Bilateral renal artery stents in place. Cholelithiasis. 1.4 cm left adrenal adenoma. Moderate to large left periumbilical hernia containing fat only. The liver, spleen, pancreas and right adrenal gland demonstrate no discrete abnormality. There is no aortic aneurysm. No evidence of pneumoperitoneum, free intraperitoneal fluid or bowel obstruction. 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 The visualized osseous structures demonstrate no gross acute pathology. Impression: Contrast extravasation is seen within the cecal lumen as noted above consistent with identification of a nonspecific bleeding site. No obvious diverticulosis is seen in that region. Mildly hyperdense fluid is seen opacifying the remainder of the colon including the rectum consistent with blood. ASSESSMENT/PLAN: 72yo F wtih PMH ESRD on HD (), CVA, CAD s/p CABG, DM and CHF presented to the ER wtih abdominal pain and BRBPR Lower GI bleed- abd discomfort. CT: bleeding noted in the cecum, likely AVM. -s/p 2 units PRBC without appropriate response -s/p iv iron -transfuse if less than Hgb 8 -cont to trend Hgb Q8H -f/u rpt CBC 1pm -no noted bleeding at this time -plan for colonoscopy tomorrow. -NPO tonight for scope. -GI consult -pain ctl -zofran prn ESRD on HD () - resume normal schedule. nephro consult getting EPO CHF- appears euvolemic. cont coreg HLD cont home meds DM-does not take medications? will need to med rec. BGM ACHS and ISS FEN PO hydration replete prn renal diet, NPO tonight for scope. ppx- SCD protonix po Dispo ICU monitoring. if repeat Hgb is stable can transfer to floors Visit type - Emergency Visit Emergency Visit: Yes ED Registration Date: 04/14/18 Care time: The patient presented to the Emergency Department on the above date and was hospitalized for further evaluation of their emergent condition. - New Patient This patient is new to me today: Yes Date on this admission: 04/15/18 - Critical Care Critical Care patient: Yes Total Critical Care Time (in minutes): 36 Critical Care Statement: The care of this patient involved high complexity decision making to prevent further life threatening deterioration of the patient 's condition and/or to evaluate & treat vital organ system(s) failure or risk of failure.
[2018-04-15] MEDS ORDERED: ALBUTEROL SO4 2.5/IPRATROPIUM 0.5 INH SOL 3 ML VIAL.NEB. NEB PRN (11:37)
--- NOTE | 2018-04-15 11:56 | EKG ---
Test Reason : Blood Pressure : / mmHG Vent. Rate : 099 BPM Atrial Rate : 099 BPM P-R Int : 182 ms QRS Dur : 090 ms QT Int : 374 ms P-R-T Axes : 075 009 073 degrees QTc Int : 479 ms NORMAL SINUS RHYTHM INFERIOR INFARCT , AGE UNDETERMINED ABNORMAL ECG WHEN COMPARED WITH ECG OF 23-FEB-2018 18:16, INFERIOR INFARCT IS NOW PRESENT Confirmed by JULI HERNANDEZ, NORMA ([id number]) on 04/15/2018 11:56:32 AM Referred By: Confirmed By:NORMA BUSTOS MD
[2018-04-15] MEDS ORDERED: PYRIDOXINE HCL (B-6) 100 MG TABLET PO SCH (12:00)
[2018-04-15] MEDS: PANTOPRAZOLE 40 MG TABLET (FP) PO SCH (12:26)
[2018-04-15] MEDS ORDERED: PT OWN MED DRAWER 7, Y5N ONE ×2 (13:07→13:54)
--- NOTE | 2018-04-15 13:21 | PN ---
Progress Note (short form) - Note Progress Note: Discussion held at bedside with patient and family members. I explained that on review of the initial CT it appears that there was a bleeding site in the colon (cecum). I told them this was most likely a small blood vessel (AVM), not unusual for someone on dialysis. I explained that I thought the safest way to treat it was with argon plasma coagulation but that it carried a risk of perforation that was not insignificant, probably at least 1 or 2% if not higher , and that perforation would likely require emergency surgery. Ms Posey has always gone to [facility] for her acute problems before but says now she does not want to go there for this. If she bleeds again while hospitalized she will need to have the colonoscopy performed during this hospitalization. If her Hgb stabilizes we can arrange the colonoscopy as an outpatient. Problem List - Problems (1) GI bleed Code(s): K92.2 - GASTROINTESTINAL HEMORRHAGE, UNSPECIFIED Qualifiers: GI bleed type/associated pathology: unspecified gastrointestinal hemorrhage type Qualified Code(s): K92.2 - Gastrointestinal hemorrhage, unspecified
[2018-04-15 13:40] LABS: HEMATOCRIT 23.8 % (32.4-45.2); MCH 32.5 pg (25.7-33.7); MCHC 33.8 g/dl (32.0-36.0); MEAN CELL VOLUME 96.1 fl (80-96); MEAN PLT VOLUME 9.1 fl (7.5-11.1); PLATELET COUNT 173 K/MM3 (134-434); RBC 2.47 M/mm3 (3.60-5.2); WHITE BLOOD COUNT 8.1 K/mm3 (4.0-10.0)
[2018-04-15] MEDS: ACETAMINOPHEN 325 MG TABLET (FP) PO PRN ×2 (16:36→21:03)
[2018-04-15] MEDS ORDERED: SIMETHICONE 80 MG TAB.CHEW (FP) PO PRN (17:45)
[2018-04-15] MEDS ORDERED: MAG HYDROX/AL HYDROX/SIMETH 30 ML UNIT-DOSE CUP PO ONE (17:45)
[2018-04-15] MEDS ORDERED: MORPHINE SULFATE 2 MG/ML VIAL IVPUSH ONE ×2 (18:30→20:00)
[2018-04-15] MEDS ORDERED: morphine SULFATE 4 MG/ML VIAL ONE (18:32)
[2018-04-15] MEDS ORDERED: MORPHINE SULFATE 2 MG/ML VIAL IVPUSH PRN (20:16)
[2018-04-15] MEDS: ATORVASTATIN CA 40 MG TABLET (FP) PO SCH (21:03)
[2018-04-15] MEDS: GABAPENTIN 100 MG CAPSULE (FP) PO SCH (21:03)
[2018-04-16 06:07] LABS: BASO % 0.8 % (0-2.0); EOS % 2.6 % (0-4.5); HEMATOCRIT 21.1 % (32.4-45.2); HEMOGLOBIN 7.1 GM/dL (10.7-15.3); MCH 32.3 pg (25.7-33.7); MCHC 33.9 g/dl (32.0-36.0); MEAN CELL VOLUME 95.4 fl (80-96); MEAN PLT VOLUME 9.3 fl (7.5-11.1); MONO % 8.1 % (3.8-10.2); NEUT % 58.5 % (42.8-82.8); PLATELET COUNT 175 K/MM3 (134-434); RBC 2.21 M/mm3 (3.60-5.2); RDW 15.2 % (11.6-15.6); WHITE BLOOD COUNT 5.6 K/mm3 (4.0-10.0)
[2018-04-16 06:44] LABS: ALBUMIN 2.7 g/dl (3.4-5.0); ALK PHOS 112 U/L (45-117); ANION GAP 11 MMOL/L (8-16); BILIRUBIN,TOTAL 0.3 mg/dL (0.2-1); BLOOD UREA NITROGEN 51 mg/dL (7-18); CHLORIDE 103 mmol/L (98-107); CO2 26 mmol/L (21-32); CREATININE 7.1 mg/dL (0.55-1.3); GLUCOSE,RANDOM 94 mg/dL (74-106); MAGNESIUM 2.3 mg/dL (1.8-2.4); PHOSPHOROUS 6.6 mg/dL (2.5-4.9); POTASSIUM 4.8 mmol/L (3.5-5.1); SGOT/AST 15 U/L (15-37); SGPT/ALT 12 U/L (13-61); SODIUM 139 mmol/L (136-145)
[2018-04-16] MEDS ORDERED: PT OWN MED DRAWER 7, Y5N ONE (09:44)
[2018-04-16] MEDS: PANTOPRAZOLE 40 MG TABLET (FP) PO SCH (09:47)
[2018-04-16] MEDS: ATORVASTATIN CA 40 MG TABLET (FP) PO SCH (09:47)
[2018-04-16] MEDS: PYRIDOXINE HCL (B-6) 50 MG TABLET (FP) PO SCH (09:47)
--- NOTE | 2018-04-16 12:01 | PN ---
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 Continued hgb drop. Discussed with pt - would recommend colonoscopic intervention for ablation of ectasia(s). Discussed R/B/L/A including but not limited to bleeding, infection, missed lesions, perforation requiring surgery. Tentatively patient agrees, but will follow up when daughter arrives at 2pm. Continue to trend hgb, follow up post-transfusion CBC. Tentative plan for colonoscopy tomorrow - further recommendations to follow.
--- NOTE | 2018-04-16 12:18 | PN ---
Teaching Attending Note Name of Resident: Amber Christina ATTENDING PHYSICIAN STATEMENT I saw and evaluated the patient. I reviewed the resident's note and discussed the case with the resident. I agree with the resident's findings and plan as documented. SUBJECTIVE: Patient seen and examined in the ICU. Awake and alert. Some mild mid-epigastric discomfort. Intake & Output 04/13/18 04/14/18 04/15/18 04/16/18 22:59 22:59 23:59 23:59 Intake Total 0 Output Total 0 Balance 0 Weight 170 lb Last Vital Signs Temp Pulse Resp BP Pulse Ox 98 F 71 17 127/62 100 04/16/18 06:00 04/16/18 08:00 04/16/18 08:00 04/16/18 08:00 04/15/18 20:37 Active Medications Acetaminophen (Tylenol -) 650 mg PO Q4H PRN PRN Reason: HEADACHE Last Admin: 04/15/18 21:03 Dose: 650 mg Albuterol/Ipratropium (Duoneb -) 1 amp NEB Q6H PRN PRN Reason: SHORTNESS OF BREATH Atorvastatin Calcium (Lipitor -) 40 mg PO DAILY [facility] Last Admin: 04/16/18 09:47 Dose: 40 mg Carvedilol (Coreg -) 12.5 mg PO BID [facility] Last Admin: 04/15/18 21:03 Dose: 12.5 mg Gabapentin (Neurontin -) 100 mg PO HS [facility] Last Admin: 04/15/18 21:03 Dose: 100 mg Morphine Sulfate (Morphine Sulfate) 2 mg IVPUSH ONCE PRN PRN Reason: PAIN LEVEL 6-10 Last Admin: 04/16/18 06:58 Dose: 2 mg Ondansetron HCl (Zofran Injection) 4 mg IVPUSH Q4H PRN PRN Reason: NAUSEA AND/OR VOMITING Last Admin: 04/15/18 10:21 Dose: 4 mg Pantoprazole Sodium (Protonix -) 40 mg PO DAILY [facility] Last Admin: 04/16/18 09:47 Dose: 40 mg Pyridoxine HCl (Vitamin B6 -) 100 mg PO DAILY [facility] Last Admin: 04/16/18 09:47 Dose: 100 mg Simethicone (Mylicon -) 80 mg PO QID PRN PRN Reason: GAS Last Admin: 04/15/18 17:56 Dose: 80 mg GEN: awake alert, greek speaking, NAD HEENT: PERRL, dry oral mucosa PULM: clear anterior CV: RRR ABD; soft, mid-epigastric tenderness, + BS EXT: R AVF with good thrill, trace edema, 2+ pulses NEURO: oriented, non focal Laboratory Results - last 24 hr 04/13/18 04/14/18 04/15/18 17:54 01:53 13:20 WBC 8.1 RBC 2.47 L Hgb 8.0 L Hct 23.8 L MCV 96.1 H MCH 32.5 MCHC 33.8 RDW 16.0 H Plt Count 173 MPV 9.1 Absolute Neuts (auto) Neutrophils % Lymphocytes % Monocytes % Eosinophils % Basophils % Nucleated RBC % Sodium Potassium Chloride Carbon Dioxide Anion Gap BUN Creatinine Creat Clearance w eGFR POC Glucometer Random Glucose Calcium Phosphorus Magnesium Total Bilirubin AST ALT Alkaline Phosphatase Total Protein Albumin Blood Type O POSITIVE O POSITIVE Antibody Screen Negative Negative Crossmatch See Detail See Detail 04/15/18 04/15/18 04/16/18 15:21 23:24 05:30 WBC 5.6 RBC 2.21 L Hgb 7.1 L Hct 21.1 L MCV 95.4 MCH 32.3 MCHC 33.9 RDW 15.2 Plt Count 175 MPV 9.3 Absolute Neuts (auto) 3.3 Neutrophils % 58.5 D Lymphocytes % 30.0 D Monocytes % 8.1 D Eosinophils % 2.6 D Basophils % 0.8 Nucleated RBC % 0 Sodium Potassium Chloride Carbon Dioxide Anion Gap BUN Creatinine Creat Clearance w eGFR POC Glucometer 123 104 Random Glucose Calcium Phosphorus Magnesium Total Bilirubin AST ALT Alkaline Phosphatase Total Protein Albumin Blood Type Antibody Screen Crossmatch 04/16/18 04/16/18 04/16/18 05:30 05:37 09:50 WBC RBC Hgb Hct MCV MCH MCHC RDW Plt Count MPV Absolute Neuts (auto) Neutrophils % Lymphocytes % Monocytes % Eosinophils % Basophils % Nucleated RBC % Sodium 139 Potassium 4.8 Chloride 103 Carbon Dioxide 26 Anion Gap 11 BUN 51 H Creatinine 7.1 H Creat Clearance w eGFR 5.64 POC Glucometer 94 Random Glucose 94 Calcium 8.0 L Phosphorus 6.6 H Magnesium 2.3 Total Bilirubin 0.3 AST 15 ALT 12 L Alkaline Phosphatase 112 Total Protein 5.0 L Albumin 2.7 L Blood Type O POSITIVE Antibody Screen Negative Crossmatch See Detail 04/16/18 10:51 WBC RBC Hgb Hct MCV MCH MCHC RDW Plt Count MPV Absolute Neuts (auto) Neutrophils % Lymphocytes % Monocytes % Eosinophils % Basophils % Nucleated RBC % Sodium Potassium Chloride Carbon Dioxide Anion Gap BUN Creatinine Creat Clearance w eGFR POC Glucometer 101 Random Glucose Calcium Phosphorus Magnesium Total Bilirubin AST ALT Alkaline Phosphatase Total Protein Albumin Blood Type Antibody Screen Crossmatch IMP: GI bleed most likely from the cecum ESRD Vasculopathy Normal transfusion threshold to 8 For colonoscopy as bleeding has recurred HD per renal NPO Strict I & O Floor if stable post procedure Dr Rey
--- NOTE | 2018-04-16 12:36 | PN ---
Physical Exam: SUBJECTIVE: Patient seen and examined 72yo F wtih PMH ESRD on HD, CHF, CVA, CAD, DM and CHF presented to the ER wtih abdominal pain and BRBPR. 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 OBJECTIVE: Vital Signs Period Temp Pulse Resp BP Sys/Rodriguez Pulse Ox Last 24 Hr 97.8 F-98.2 F 68-98 16-18 85-179/50-88 100 GENERAL: The patient is awake, alert, and fully oriented, in no acute distress. HEAD: Normal with no signs of trauma. EYES: PERRL, extraocular movements intact, sclera anicteric, conjunctiva clear. No ptosis. ENT: Ears normal, nares patent, oropharynx clear without exudates, moist mucous membranes. NECK: Trachea midline, full range of motion, supple. LUNGS: Breath sounds equal, clear to auscultation bilaterally, no wheezes, no crackles, no accessory muscle use. HEART: Regular rate and rhythm, S1, S2 without murmur, rub or gallop. ABDOMEN: Soft, nontender, nondistended, normoactive bowel sounds, no guarding, no rebound, no hepatosplenomegaly, no masses. EXTREMITIES: 2+ pulses, warm, well-perfused, no edema. NEUROLOGICAL: Cranial nerves II through XII grossly intact. Normal speech, gait not observed. PSYCH: Normal mood, normal affect. SKIN: Warm, dry, normal turgor, no rashes or lesions noted Laboratory Results - last 24 hr 04/13/18 04/14/18 04/15/18 17:54 01:53 13:20 WBC 8.1 RBC 2.47 L Hgb 8.0 L Hct 23.8 L MCV 96.1 H MCH 32.5 MCHC 33.8 RDW 16.0 H Plt Count 173 MPV 9.1 Absolute Neuts (auto) Neutrophils % Lymphocytes % Monocytes % Eosinophils % Basophils % Nucleated RBC % Sodium Potassium Chloride Carbon Dioxide Anion Gap BUN Creatinine Creat Clearance w eGFR POC Glucometer Random Glucose Calcium Phosphorus Magnesium Total Bilirubin AST ALT Alkaline Phosphatase Total Protein Albumin Blood Type O POSITIVE O POSITIVE Antibody Screen Negative Negative Crossmatch See Detail See Detail 04/15/18 04/15/18 04/16/18 15:21 23:24 05:30 WBC 5.6 RBC 2.21 L Hgb 7.1 L Hct 21.1 L MCV 95.4 MCH 32.3 MCHC 33.9 RDW 15.2 Plt Count 175 MPV 9.3 Absolute Neuts (auto) 3.3 Neutrophils % 58.5 D Lymphocytes % 30.0 D Monocytes % 8.1 D Eosinophils % 2.6 D Basophils % 0.8 Nucleated RBC % 0 Sodium Potassium Chloride Carbon Dioxide Anion Gap BUN Creatinine Creat Clearance w eGFR POC Glucometer 123 104 Random Glucose Calcium Phosphorus Magnesium Total Bilirubin AST ALT Alkaline Phosphatase Total Protein Albumin Blood Type Antibody Screen Crossmatch 04/16/18 04/16/18 04/16/18 05:30 05:37 09:50 WBC RBC Hgb Hct MCV MCH MCHC RDW Plt Count MPV Absolute Neuts (auto) Neutrophils % Lymphocytes % Monocytes % Eosinophils % Basophils % Nucleated RBC % Sodium 139 Potassium 4.8 Chloride 103 Carbon Dioxide 26 Anion Gap 11 BUN 51 H Creatinine 7.1 H Creat Clearance w eGFR 5.64 POC Glucometer 94 Random Glucose 94 Calcium 8.0 L Phosphorus 6.6 H Magnesium 2.3 Total Bilirubin 0.3 AST 15 ALT 12 L Alkaline Phosphatase 112 Total Protein 5.0 L Albumin 2.7 L Blood Type O POSITIVE Antibody Screen Negative Crossmatch See Detail 04/16/18 10:51 WBC RBC Hgb Hct MCV MCH MCHC RDW Plt Count MPV Absolute Neuts (auto) Neutrophils % Lymphocytes % Monocytes % Eosinophils % Basophils % Nucleated RBC % Sodium Potassium Chloride Carbon Dioxide Anion Gap BUN Creatinine Creat Clearance w eGFR POC Glucometer 101 Random Glucose Calcium Phosphorus Magnesium Total Bilirubin AST ALT Alkaline Phosphatase Total Protein Albumin Blood Type Antibody Screen Crossmatch Active Medications Generic Name Dose Route Start Last Admin Trade Name Freq PRN Reason Stop Dose Admin Acetaminophen 650 mg 04/14/18 18:32 04/15/18 21:03 Tylenol - PO 650 mg Q4H PRN Administration HEADACHE Albuterol/Ipratropium 1 amp 04/15/18 11:37 Duoneb - NEB Q6H PRN SHORTNESS OF BREATH Atorvastatin Calcium 40 mg 04/15/18 22:00 04/16/18 09:47 Lipitor - PO 40 mg DAILY [facility] Administration Carvedilol 12.5 mg 04/14/18 10:00 04/15/18 21:03 Coreg - PO 12.5 mg BID [facility] Administration Gabapentin 100 mg 04/15/18 22:00 04/15/18 21:03 Neurontin - PO 100 mg HS [facility] Administration Morphine Sulfate 2 mg 04/15/18 20:16 04/16/18 06:58 Morphine Sulfate IVPUSH 2 mg ONCE PRN Administration PAIN LEVEL 6-10 Ondansetron HCl 4 mg 04/15/18 10:00 04/15/18 10:21 Zofran Injection IVPUSH 4 mg Q4H PRN Administration NAUSEA AND/OR VOMITING Pantoprazole Sodium 40 mg 04/15/18 12:00 04/16/18 09:47 Protonix - PO 40 mg DAILY [facility] Administration Pyridoxine HCl 100 mg 04/16/18 10:00 04/16/18 09:47 Vitamin B6 - PO 100 mg DAILY [facility] Administration Simethicone 80 mg 04/15/18 17:45 04/15/18 17:56 Mylicon - PO 80 mg QID PRN Administration GAS ASSESSMENT/PLAN: 72yo F wtih PMH ESRD on HD, CHF, CVA, CAD, CABG, abdominal hernia, DM and CHF presented to the ER wtih abdominal pain and BRBPR. 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 -Pt had rebleeding while in hospital -Acute Hgb drop from 8.1 yesterday 04/15/18 to 7.1 today 04/16/2018 -GI recs inpatient colonoscopy today -GI discussed with pt and family, family will decide at 2 PM for colonoscopy tomorrow -Pt given 1L PRBC today -Follow post op transfusion CBC -Pain control: acetaminophen 650 mg PO Q4H PRN -Nausea PRN: zofran 4 mg IV PRN #Hyperkalemia -Resolved #ESRD on HD -Resume HD schedule -Nephrology consulted #CHF -No home lasix -Euvolemic -Continue coreg 12.5 mg PO BID #HLD -Continue home atorvastatin 40 mg PO daily #DM -No home medications -Start BGM and iSS #DVT PPX -SCDs #Diet -Progress to clears per GI #DISPO -MICU Visit type - Emergency Visit Emergency Visit: Yes ED Registration Date: 04/14/18 Care time: The patient presented to the Emergency Department on the above date and was hospitalized for further evaluation of their emergent condition. - New Patient This patient is new to me today: Yes Date on this admission: 04/16/18 - Critical Care Critical Care patient: Yes Total Critical Care Time (in minutes): 35 Critical Care Statement: The care of this patient involved high complexity decision making to prevent further life threatening deterioration of the patient 's condition and/or to evaluate & treat vital organ system(s) failure or risk of failure. - Discharge Referral Referred to [facility] Med [facility].: No
--- NOTE | 2018-04-16 13:02 | PN ---
Progress Note, Physician History of Present Illness: Pt seen and examined at bedside. She is awake and alert. She was last dialyzed on Monday. - Current Medication List Current Medications: Active Medications Acetaminophen (Tylenol -) 650 mg PO Q4H PRN PRN Reason: HEADACHE Last Admin: 04/15/18 21:03 Dose: 650 mg Albuterol/Ipratropium (Duoneb -) 1 amp NEB Q6H PRN PRN Reason: SHORTNESS OF BREATH Atorvastatin Calcium (Lipitor -) 40 mg PO DAILY [facility] Last Admin: 04/16/18 09:47 Dose: 40 mg Carvedilol (Coreg -) 12.5 mg PO BID [facility] Last Admin: 04/15/18 21:03 Dose: 12.5 mg Gabapentin (Neurontin -) 100 mg PO HS [facility] Last Admin: 04/15/18 21:03 Dose: 100 mg Morphine Sulfate (Morphine Sulfate) 2 mg IVPUSH ONCE PRN PRN Reason: PAIN LEVEL 6-10 Last Admin: 04/16/18 06:58 Dose: 2 mg Ondansetron HCl (Zofran Injection) 4 mg IVPUSH Q4H PRN PRN Reason: NAUSEA AND/OR VOMITING Last Admin: 04/15/18 10:21 Dose: 4 mg Pantoprazole Sodium (Protonix -) 40 mg PO DAILY [facility] Last Admin: 04/16/18 09:47 Dose: 40 mg Pyridoxine HCl (Vitamin B6 -) 100 mg PO DAILY [facility] Last Admin: 04/16/18 09:47 Dose: 100 mg Simethicone (Mylicon -) 80 mg PO QID PRN PRN Reason: GAS Last Admin: 04/15/18 17:56 Dose: 80 mg - Objective Vital Signs: Vital Signs Temperature 98 F 04/16/18 06:00 Pulse Rate 71 04/16/18 08:00 Respiratory Rate 17 04/16/18 08:00 Blood Pressure 127/62 04/16/18 08:00 O2 Sat by Pulse Oximetry (%) 100 04/15/18 20:37 Constitutional: Yes: Calm Eyes: Yes: Conjunctiva Clear HENT: Yes: Atraumatic Neck: Yes: Supple Cardiovascular: Yes: S1, S2 Respiratory: Yes: CTA Bilaterally Gastrointestinal: Yes: Soft Genitourinary: Yes: WNL Musculoskeletal: Yes: WNL Edema: No Neurological: Yes: Oriented Psychiatric: Yes: Oriented Labs: CBC, BMP 04/16/18 05:30 04/16/18 05:30 INR, PTT INR 0.96 (0.83-1.09) 04/13/18 17:50 Assessment/Plan Current Medications Generic Name Dose Route Start Last Admin Trade Name Freq PRN Reason Stop Dose Admin Acetaminophen 650 mg 04/14/18 18:32 04/15/18 21:03 Tylenol - PO 650 mg Q4H PRN Administration HEADACHE Albuterol/Ipratropium 1 amp 04/15/18 11:37 Duoneb - NEB Q6H PRN SHORTNESS OF BREATH Atorvastatin Calcium 40 mg 04/15/18 22:00 04/16/18 09:47 Lipitor - PO 40 mg DAILY [facility] Administration Carvedilol 12.5 mg 04/14/18 10:00 04/15/18 21:03 Coreg - PO 12.5 mg BID [facility] Administration Gabapentin 100 mg 04/15/18 22:00 04/15/18 21:03 Neurontin - PO 100 mg HS [facility] Administration Morphine Sulfate 2 mg 04/15/18 20:16 04/16/18 06:58 Morphine Sulfate IVPUSH 2 mg ONCE PRN Administration PAIN LEVEL 6-10 Ondansetron HCl 4 mg 04/15/18 10:00 04/15/18 10:21 Zofran Injection IVPUSH 4 mg Q4H PRN Administration NAUSEA AND/OR VOMITING Pantoprazole Sodium 40 mg 04/15/18 12:00 04/16/18 09:47 Protonix - PO 40 mg DAILY [facility] Administration Pyridoxine HCl 100 mg 04/16/18 10:00 04/16/18 09:47 Vitamin B6 - PO 100 mg DAILY [facility] Administration Simethicone 80 mg 04/15/18 17:45 04/15/18 17:56 Mylicon - PO 80 mg QID PRN Administration GAS Impression 1. ESRD 2. GI bleed 3. CAD 4. HTN 5. DM 6. anemia 7. hx syncope 8. 1.4 cm left adrenal adenoma Plan - next HD tomorrow - transfuse as needed - GI workup in progress - discussed with ICU team
--- NOTE | 2018-04-16 13:56 | PN ---
Physical Exam: SUBJECTIVE: Patient seen and examined at bedside. HD for tomorrow. today has some abdominal tenderness but improving. no BM or BRBPR. H/H dropped to 7.1, will order 1U prbc. denies fever, chills, CP, SOB, N/V/D, urinary sxs OBJECTIVE: Vital Signs Period Temp Pulse Resp BP Sys/Rodriguez Pulse Ox Last 24 Hr 97.8 F-98.2 F 68-98 16-18 85-179/50-88 100 GENERAL: The patient is awake, alert, and fully oriented, in no acute distress. HEAD: Normal with no signs of trauma. EYES: PERRL, extraocular movements intact, sclera anicteric, conjunctiva clear. No ptosis. ENT: Ears normal, nares patent, oropharynx clear without exudates, moist mucous membranes. NECK: Trachea midline, full range of motion, supple. LUNGS: Breath sounds equal, clear to auscultation bilaterally, no wheezes, no crackles, no accessory muscle use. HEART: Regular rate and rhythm, S1, S2 without murmur, rub or gallop. ABDOMEN: Soft, mildy diffusely tender, nondistended, normoactive bowel sounds, no guarding, no rebound, no masses. EXTREMITIES: 2+ pulses, warm, well-perfused, no edema. R AVF with good thrill NEUROLOGICAL: Cranial nerves II through XII grossly intact. Normal speech, gait not observed. PSYCH: Normal mood, normal affect. SKIN: Warm, dry, normal turgor, no rashes or lesions noted Laboratory Results - last 24 hr 04/13/18 04/14/18 04/15/18 17:54 01:53 15:21 WBC RBC Hgb Hct MCV MCH MCHC RDW Plt Count MPV Absolute Neuts (auto) Neutrophils % Lymphocytes % Monocytes % Eosinophils % Basophils % Nucleated RBC % Sodium Potassium Chloride Carbon Dioxide Anion Gap BUN Creatinine Creat Clearance w eGFR POC Glucometer 123 Random Glucose Calcium Phosphorus Magnesium Total Bilirubin AST ALT Alkaline Phosphatase Total Protein Albumin Blood Type O POSITIVE O POSITIVE Antibody Screen Negative Negative Crossmatch See Detail See Detail 04/15/18 04/16/18 04/16/18 23:24 05:30 05:30 WBC 5.6 RBC 2.21 L Hgb 7.1 L Hct 21.1 L MCV 95.4 MCH 32.3 MCHC 33.9 RDW 15.2 Plt Count 175 MPV 9.3 Absolute Neuts (auto) 3.3 Neutrophils % 58.5 D Lymphocytes % 30.0 D Monocytes % 8.1 D Eosinophils % 2.6 D Basophils % 0.8 Nucleated RBC % 0 Sodium 139 Potassium 4.8 Chloride 103 Carbon Dioxide 26 Anion Gap 11 BUN 51 H Creatinine 7.1 H Creat Clearance w eGFR 5.64 POC Glucometer 104 Random Glucose 94 Calcium 8.0 L Phosphorus 6.6 H Magnesium 2.3 Total Bilirubin 0.3 AST 15 ALT 12 L Alkaline Phosphatase 112 Total Protein 5.0 L Albumin 2.7 L Blood Type Antibody Screen Crossmatch 04/16/18 04/16/18 04/16/18 05:37 09:50 10:51 WBC RBC Hgb Hct MCV MCH MCHC RDW Plt Count MPV Absolute Neuts (auto) Neutrophils % Lymphocytes % Monocytes % Eosinophils % Basophils % Nucleated RBC % Sodium Potassium Chloride Carbon Dioxide Anion Gap BUN Creatinine Creat Clearance w eGFR POC Glucometer 94 101 Random Glucose Calcium Phosphorus Magnesium Total Bilirubin AST ALT Alkaline Phosphatase Total Protein Albumin Blood Type O POSITIVE Antibody Screen Negative Crossmatch See Detail Active Medications Generic Name Dose Route Start Last Admin Trade Name Freq PRN Reason Stop Dose Admin Acetaminophen 650 mg 04/14/18 18:32 04/15/18 21:03 Tylenol - PO 650 mg Q4H PRN Administration HEADACHE Albuterol/Ipratropium 1 amp 04/15/18 11:37 Duoneb - NEB Q6H PRN SHORTNESS OF BREATH Atorvastatin Calcium 40 mg 04/15/18 22:00 04/16/18 09:47 Lipitor - PO 40 mg DAILY [facility] Administration Carvedilol 12.5 mg 04/14/18 10:00 04/15/18 21:03 Coreg - PO 12.5 mg BID [facility] Administration Gabapentin 100 mg 04/15/18 22:00 04/15/18 21:03 Neurontin - PO 100 mg HS [facility] Administration Morphine Sulfate 2 mg 04/15/18 20:16 04/16/18 06:58 Morphine Sulfate IVPUSH 2 mg ONCE PRN Administration PAIN LEVEL 6-10 Ondansetron HCl 4 mg 04/15/18 10:00 04/15/18 10:21 Zofran Injection IVPUSH 4 mg Q4H PRN Administration NAUSEA AND/OR VOMITING Pantoprazole Sodium 40 mg 04/15/18 12:00 04/16/18 09:47 Protonix - PO 40 mg DAILY [facility] Administration Pyridoxine HCl 100 mg 04/16/18 10:00 04/16/18 09:47 Vitamin B6 - PO 100 mg DAILY [facility] Administration Simethicone 80 mg 04/15/18 17:45 04/15/18 17:56 Mylicon - PO 80 mg QID PRN Administration GAS [id number] CT/ABDOMEN/PELVIS CTA W/WO CONTR Abdomen/pelvis CT angiography (without and with contrast) Clinical information: abdominal pain, rectal bleeding Multiplanar, multiphase imaging was performed following the intravenous bolus administration of nonionic contrast in addition to preliminary noncontrast scanning. Contrast extravasation is seen within the cecum on arterial phase and portal venous phase imaging. Extravasated contrast is noted to principally accumulate along the lateral and posterior lateral cecal wall. On noncontrast imaging mildly hyperdense fluid is seen within the length of the colon including the rectum presumably representing blood. The remainder of the exam demonstrates no definite interval change in comparison to a prior CT study 02/23/2018. Very extensive atherosclerotic vascular calcifications are noted. Mild cardiomegaly. Status post median sternotomy with CABG. Marked bilateral renal atrophy. Bilateral renal cortical simple and complex cysts without obvious interval change. Bilateral renal artery stents in place. Cholelithiasis. 1.4 cm left adrenal adenoma. Moderate to large left periumbilical hernia containing fat only. The liver, spleen, pancreas and right adrenal gland demonstrate no discrete abnormality. There is no aortic aneurysm. No evidence of pneumoperitoneum, free intraperitoneal fluid or bowel obstruction. 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 The visualized osseous structures demonstrate no gross acute pathology. Impression: Contrast extravasation is seen within the cecal lumen as noted above consistent with identification of a nonspecific bleeding site. No obvious diverticulosis is seen in that region. Mildly hyperdense fluid is seen opacifying the remainder of the colon including the rectum consistent with blood. ASSESSMENT/PLAN: 72yo F wtih PMH ESRD on HD (//), CVA, CAD s/p CABG, DM and CHF presented to the ER wtih abdominal pain and BRBPR Lower GI bleed- abd discomfort. CT: bleeding noted in the cecum, likely AVM. -s/p 2 units PRBC without appropriate response -s/p iv iron -H/H dropped to 7.1, will order 1U prbc (3rd total). pt for possible colonoscopy farrukh, pending GI rec. -monitor H/H, transfuse if less than Hgb 8 -no noted bleeding or BM at this time -plan for colonoscopy tomorrow. -NPO tonight for possible scope, pending GI rec. -GI consult -pain ctl -zofran prn ESRD on HD () - c/w normal schedule, per nephro nephro consult getting EPO CHF- appears euvolemic. cont coreg HLD cont home meds DM-does not take medications? will need to med rec. BGM ACHS and ISS FEN PO hydration replete prn renal diet, NPO tonight for possible scope, pending GI rec. ppx- SCD protonix po Dispo ICU monitoring. pt for possible colonoscopy farrukh, pending GI rec. Visit type - Emergency Visit Emergency Visit: Yes ED Registration Date: 04/14/18 Care time: The patient presented to the Emergency Department on the above date and was hospitalized for further evaluation of their emergent condition. - New Patient This patient is new to me today: Yes Date on this admission: 04/16/18 - Critical Care Critical Care patient: No
--- NOTE | 2018-04-16 14:29 | PN ---
Teaching Attending Note Name of Resident: Mesfin Santacruz ATTENDING PHYSICIAN STATEMENT I saw and evaluated the patient. I reviewed the resident's note and discussed the case with the resident. I agree with the resident's findings and plan as documented. SUBJECTIVE:mild episgastric pain. deneis CP, SOB, fever, chills, N/V/C/D. no repeat episodes of BRBPR or melena OBJECTIVE: Last Vital Signs Temp Pulse Resp BP Pulse Ox 98 F 71 17 127/62 100 04/16/18 06:00 04/16/18 08:00 04/16/18 09:00 04/16/18 08:00 04/16/18 09:00 General NAD CV S1 S2 RRR Lungs CTA B/L anteriorly ABdomen soft NT/ND obese ASSESSMENT AND PLAN: 72yo F wtih PMH ESRD on HD, CHF, CVA, CAD, DM and CHF presented to the ER wtih abdominal pain and BRBPR 1. Lower GI bleed- bleeding noted in the cecum, likely AVM. drop in Hgb. plan for colonoscopy tomorrow. cont to trend Hgb Q8H, NPO tonight for scope. GI on board 2. acute blood loss anemia- due to above mentioned problem. will transfuse PRBC. received 2 so far this hospital stay. check post-cbc. received venofer on admission. 3. Hyperkalemia- resolved 4. ESRD on HD-. resume normal schedule. nephro on board 5. CHF- appears euvolemic. cont coreg 6. DM-does not take medications? will need to med rec. on BGM and iSS 7. DVT ppx- SCD 8. MICU monitoring. The care of this patient involved high complexity decision making to prevent further life threatening deterioration of the patient's condition and/or to evaluate & treat vital organ system(s) failure or risk of failure. 38mins
[2018-04-16] MEDS ORDERED: BISACODYL 5 MG TABLET.DR (FP) PO ONE (14:40)
[2018-04-16] MEDS ORDERED: PEG 3350/NA SULF BICARB CL/KCL 4000 ML SOLN.RECON PO ONE (15:00)
[2018-04-16 15:33] VITALS: BMI 33.2
[2018-04-16 15:45] LABS: BASO % 0.7 % (0-2.0); EOS % 2.2 % (0-4.5); HEMATOCRIT 26.2 % (32.4-45.2); HEMOGLOBIN 8.8 GM/dL (10.7-15.3); LYMPH % 24.8 % (8-40); MCH 32.1 pg (25.7-33.7); MCHC 33.7 g/dl (32.0-36.0); MEAN CELL VOLUME 95.2 fl (80-96); MEAN PLT VOLUME 9.6 fl (7.5-11.1); MONO % 6.5 % (3.8-10.2); NEUT % 65.8 % (42.8-82.8); PLATELET COUNT 180 K/MM3 (134-434); RBC 2.75 M/mm3 (3.60-5.2); RDW 15.3 % (11.6-15.6); WHITE BLOOD COUNT 6.4 K/mm3 (4.0-10.0)
[2018-04-16] MEDS: CARVEDILOL 12.5 MG TABLET (FP) PO SCH ×2 (18:35→21:51)
[2018-04-16] MEDS: GABAPENTIN 100 MG CAPSULE (FP) PO SCH (21:51)
[2018-04-16] MEDS ORDERED: MORPHINE SULFATE 2 MG/ML VIAL IVPUSH ONE (23:15)
--- NOTE | 2018-04-16 23:47 | EKG ---
Test Reason : Blood Pressure : / mmHG Vent. Rate : 069 BPM Atrial Rate : 069 BPM P-R Int : 202 ms QRS Dur : 100 ms QT Int : 430 ms P-R-T Axes : 033 003 138 degrees QTc Int : 460 ms NORMAL SINUS RHYTHM LEFT VENTRICULAR HYPERTROPHY WITH REPOLARIZATION ABNORMALITY NONSPECIFIC ST AND T WAVE ABNORMALITY ABNORMAL ECG WHEN COMPARED WITH ECG OF 13-APR-2018 18:12, Confirmed by MANDA CLARK MD ([id number]) on 04/16/2018 11:46:41 PM Referred By: Confirmed By:MANDA CLARK MD
[2018-04-17] MEDS ORDERED: PT OWN MED DRAWER 7, Y5N ONE ×2 (00:47→15:14)
[2018-04-17 06:26] LABS: BASO % 0.9 % (0-2.0); EOS % 3.2 % (0-4.5); HEMATOCRIT 24.2 % (32.4-45.2); HEMOGLOBIN 8.4 GM/dL (10.7-15.3); LYMPH % 25.2 % (8-40); MCH 32.4 pg (25.7-33.7); MCHC 34.7 g/dl (32.0-36.0); MEAN CELL VOLUME 93.5 fl (80-96); MONO % 7.1 % (3.8-10.2); NEUT % 63.6 % (42.8-82.8); PLATELET COUNT 178 K/MM3 (134-434); RBC 2.59 M/mm3 (3.60-5.2); RDW 15.6 % (11.6-15.6); WHITE BLOOD COUNT 5.9 K/mm3 (4.0-10.0)
[2018-04-17] MEDS ORDERED: SODIUM CHLORIDE 250 ML IV PRN (06:35)
--- NOTE | 2018-04-17 06:42 | PN ---
Physical Exam: SUBJECTIVE: 72yo F wtih PMH ESRD on HD, CHF, CVA, CAD, DM and CHF presented to the ER wtih abdominal pain and BRBPR. 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 Pt reported no pain. Pt reported dark stools that became clear overnight. Pt reported she feels the same as yesterday. OBJECTIVE: Vital Signs Period Temp Pulse Resp BP Sys/Rodriguez Pulse Ox Last 24 Hr 98.2 F-98.6 F 62-85 12-18 111-164/60-78 100-100 GENERAL: The patient is awake, alert, and fully oriented, in no acute distress. HEAD: Normal with no signs of trauma. EYES: PERRLA, extraocular movements intact, sclera anicteric, conjunctiva clear. No ptosis. ENT: Ears normal, nares patent, oropharynx clear without exudates, moist mucous membranes. NECK: Trachea midline, full range of motion, supple. LUNGS: Breath sounds equal, clear to auscultation bilaterally, no wheezes, no crackles, no accessory muscle use. HEART: Regular rate and rhythm, S1, S2 without murmur, rub or gallop. ABDOMEN: Soft, epigastric tenderness, nondistended, increased bowel sounds, no guarding, no rebound, no hepatosplenomegaly, no masses. EXTREMITIES: 2+ pulses, warm, well-perfused, no edema. NEUROLOGICAL: Cranial nerves II through XII grossly intact. Normal speech, gait not observed. PSYCH: Normal mood, normal affect. SKIN: Warm, dry, normal turgor, no rashes or lesions noted Laboratory Results - last 24 hr 04/13/18 04/14/18 04/14/18 17:54 01:53 07:15 WBC RBC Hgb Hct MCV MCH MCHC RDW Plt Count MPV Absolute Neuts (auto) Neutrophils % Lymphocytes % Monocytes % Eosinophils % Basophils % Nucleated RBC % Sodium Potassium Chloride Carbon Dioxide Anion Gap BUN Creatinine Creat Clearance w eGFR POC Glucometer Random Glucose Calcium Phosphorus Magnesium Total Bilirubin AST ALT Alkaline Phosphatase Total Protein Albumin Hep C Ab Diagnostic <0.1 Blood Type O POSITIVE O POSITIVE Antibody Screen Negative Negative Crossmatch See Detail See Detail 04/16/18 04/16/18 04/16/18 05:30 09:50 10:51 WBC RBC Hgb Hct MCV MCH MCHC RDW Plt Count MPV Absolute Neuts (auto) Neutrophils % Lymphocytes % Monocytes % Eosinophils % Basophils % Nucleated RBC % Sodium 139 Potassium 4.8 Chloride 103 Carbon Dioxide 26 Anion Gap 11 BUN 51 H Creatinine 7.1 H Creat Clearance w eGFR 5.64 POC Glucometer 101 Random Glucose 94 Calcium 8.0 L Phosphorus 6.6 H Magnesium 2.3 Total Bilirubin 0.3 AST 15 ALT 12 L Alkaline Phosphatase 112 Total Protein 5.0 L Albumin 2.7 L Hep C Ab Diagnostic Blood Type O POSITIVE Antibody Screen Negative Crossmatch See Detail 04/16/18 04/16/18 04/16/18 14:30 18:13 21:57 WBC 6.4 RBC 2.75 L Hgb 8.8 L Hct 26.2 L D MCV 95.2 MCH 32.1 MCHC 33.7 RDW 15.3 Plt Count 180 MPV 9.6 Absolute Neuts (auto) 4.2 Neutrophils % 65.8 Lymphocytes % 24.8 Monocytes % 6.5 Eosinophils % 2.2 Basophils % 0.7 Nucleated RBC % 0 Sodium Potassium Chloride Carbon Dioxide Anion Gap BUN Creatinine Creat Clearance w eGFR POC Glucometer 84 84 Random Glucose Calcium Phosphorus Magnesium Total Bilirubin AST ALT Alkaline Phosphatase Total Protein Albumin Hep C Ab Diagnostic Blood Type Antibody Screen Crossmatch 04/17/18 04/17/18 05:30 05:41 WBC 5.9 RBC 2.59 L Hgb 8.4 L Hct 24.2 L MCV 93.5 MCH 32.4 MCHC 34.7 RDW 15.6 Plt Count 178 MPV 9.0 Absolute Neuts (auto) 3.7 Neutrophils % 63.6 Lymphocytes % 25.2 Monocytes % 7.1 Eosinophils % 3.2 Basophils % 0.9 Nucleated RBC % 0 Sodium Potassium Chloride Carbon Dioxide Anion Gap BUN Creatinine Creat Clearance w eGFR POC Glucometer 72 Random Glucose Calcium Phosphorus Magnesium Total Bilirubin AST ALT Alkaline Phosphatase Total Protein Albumin Hep C Ab Diagnostic Blood Type Antibody Screen Crossmatch Active Medications Generic Name Dose Route Start Last Admin Trade Name Freq PRN Reason Stop Dose Admin Acetaminophen 650 mg 04/14/18 18:32 04/15/18 21:03 Tylenol - PO 650 mg Q4H PRN Administration HEADACHE Albuterol/Ipratropium 1 amp 04/15/18 11:37 Duoneb - NEB Q6H PRN SHORTNESS OF BREATH Atorvastatin Calcium 40 mg 04/15/18 22:00 04/16/18 09:47 Lipitor - PO 40 mg DAILY [facility] Administration Carvedilol 12.5 mg 04/14/18 10:00 04/16/18 21:51 Coreg - PO 12.5 mg BID G[facility]ON Administration Epoetin Edil 8,000 unit 04/17/18 08:00 Procrit - IVPUSH 04/17/18 08:01 ONCE ONE Gabapentin 100 mg 04/15/18 22:00 04/16/18 21:51 Neurontin - PO 100 mg HS G[facility] Administration Sodium Chloride 250 mls @ 3,000 mls/hr 04/17/18 06:35 Normal Saline - IV 04/17/18 14:00 PRN PRN Hypotension during Dialysis Ondansetron HCl 4 mg 04/15/18 10:00 04/15/18 10:21 Zofran Injection IVPUSH 4 mg Q4H PRN Administration NAUSEA AND/OR VOMITING Pantoprazole Sodium 40 mg 04/15/18 12:00 04/16/18 09:47 Protonix - PO 40 mg DAILY [facility] Administration Pyridoxine HCl 100 mg 04/16/18 10:00 04/16/18 09:47 Vitamin B6 - PO 100 mg DAILY [facility] Administration Simethicone 80 mg 04/15/18 17:45 04/15/18 17:56 Mylicon - PO 80 mg QID PRN Administration GAS ASSESSMENT/PLAN: 72yo F wtih PMH ESRD on HD, CHF, CVA, CAD, CABG, abdominal hernia, DM and CHF presented to the ER with abdominal pain and BRBPR. #Lower GIB -CT showed active bleeding in cecum 04/13/18, suspected cecal AVM -Pt reported dark stools that became clear overnight -Plan for colonoscopy today -Pt given 1L PRBC yesterday 04/16/18 with post transfusion Hgb 8.8; prior 7.1 -CBC this AM 04/17/18 showed Hgb of 8.4 -Pain control: acetaminophen 650 mg PO Q4H PRN -Nausea PRN: zofran 4 mg IV PRN #Hyperkalemia -Resolved #ESRD on HD -HD performed today -Cr 8.7 -Nephrology consulted #CHF -No home lasix -Euvolemic -Continue coreg 12.5 mg PO BID #HLD -Continue home atorvastatin 40 mg PO daily #DM -No home medications -Start BGM and iSS #DVT PPX -SCDs #Diet -NPO for colonoscopy #DISPO -MICU Visit type - Emergency Visit Emergency Visit: Yes ED Registration Date: 04/14/18 Care time: The patient presented to the Emergency Department on the above date and was hospitalized for further evaluation of their emergent condition. - New Patient This patient is new to me today: No - Critical Care Critical Care patient: Yes Total Critical Care Time (in minutes): 35 Critical Care Statement: The care of this patient involved high complexity decision making to prevent further life threatening deterioration of the patient 's condition and/or to evaluate & treat vital organ system(s) failure or risk of failure. - Discharge Referral Referred to [facility] No
[2018-04-17 06:46] LABS: ALBUMIN 2.8 g/dl (3.4-5.0); ALK PHOS 122 U/L (45-117); ANION GAP 15 MMOL/L (8-16); BILIRUBIN,TOTAL 0.3 mg/dL (0.2-1); BLOOD UREA NITROGEN 58 mg/dL (7-18); CHLORIDE 101 mmol/L (98-107); CO2 25 mmol/L (21-32); GLUCOSE,RANDOM 72 mg/dL (74-106); MAGNESIUM 2.4 mg/dL (1.8-2.4); PHOSPHOROUS 7.6 mg/dL (2.5-4.9); POTASSIUM 4.6 mmol/L (3.5-5.1); SGOT/AST 17 U/L (15-37); SGPT/ALT 15 U/L (13-61); SODIUM 141 mmol/L (136-145); TOT PROT 5.2 g/dl (6.4-8.2)
[2018-04-17 06:51] LABS: CREATININE 8.7 mg/dL (0.55-1.3)
--- NOTE | 2018-04-17 07:21 | PN ---
Physical Exam: SUBJECTIVE: Patient seen and examined at bedside. HD for today. some abdominal tenderness but improving. no BRBPR, clear BMs. H/H improved to 8.8 w/ 1U prbc. denies fever, chills, CP, SOB, N/V/D, urinary sxs. Golytely overnight and NPO for colonoscopy today OBJECTIVE: Vital Signs Period Temp Pulse Resp BP Sys/Rodriguez Pulse Ox Last 24 Hr 98.2 F-98.6 F 62-85 12-18 111-164/60-78 100-100 GENERAL: AOX3 NAD HEAD: NCAT EYES: PERRL, extraocular movements intact, sclera anicteric, conjunctiva clear. No ptosis. ENT: nares patent, oropharynx clear without exudates, MMM NECK: Trachea midline, full range of motion, supple. LUNGS: CATB HEART: RRR, S1, S2 without murmur, rub or gallop. ABDOMEN: Soft, mildy diffusely tender, ND, normoactive bowel sounds, no guarding , no rebound, no masses. +L sided reducible hernia mildly ttp EXTREMITIES: 2+ pulses, warm, well-perfused, no edema. R AVF with good thrill NEUROLOGICAL: Cranial nerves II through XII grossly intact. Normal speech, gait not observed. PSYCH: Normal mood, normal affect. SKIN: Warm, dry, normal turgor, no rashes or lesions noted Laboratory Results - last 24 hr 04/13/18 04/14/18 04/14/18 17:54 01:53 07:15 WBC RBC Hgb Hct MCV MCH MCHC RDW Plt Count MPV Absolute Neuts (auto) Neutrophils % Lymphocytes % Monocytes % Eosinophils % Basophils % Nucleated RBC % Sodium Potassium Chloride Carbon Dioxide Anion Gap BUN Creatinine Creat Clearance w eGFR POC Glucometer Random Glucose Calcium Phosphorus Magnesium Ferritin Total Bilirubin AST ALT Alkaline Phosphatase Total Protein Albumin Hep C Ab Diagnostic <0.1 Blood Type O POSITIVE O POSITIVE Antibody Screen Negative Negative Crossmatch See Detail See Detail 04/16/18 04/16/18 04/16/18 09:50 10:51 14:30 WBC 6.4 RBC 2.75 L Hgb 8.8 L Hct 26.2 L D MCV 95.2 MCH 32.1 MCHC 33.7 RDW 15.3 Plt Count 180 MPV 9.6 Absolute Neuts (auto) 4.2 Neutrophils % 65.8 Lymphocytes % 24.8 Monocytes % 6.5 Eosinophils % 2.2 Basophils % 0.7 Nucleated RBC % 0 Sodium Potassium Chloride Carbon Dioxide Anion Gap BUN Creatinine Creat Clearance w eGFR POC Glucometer 101 Random Glucose Calcium Phosphorus Magnesium Ferritin Total Bilirubin AST ALT Alkaline Phosphatase Total Protein Albumin Hep C Ab Diagnostic Blood Type O POSITIVE Antibody Screen Negative Crossmatch See Detail 04/16/18 04/16/18 04/17/18 18:13 21:57 05:30 WBC 5.9 RBC 2.59 L Hgb 8.4 L Hct 24.2 L MCV 93.5 MCH 32.4 MCHC 34.7 RDW 15.6 Plt Count 178 MPV 9.0 Absolute Neuts (auto) 3.7 Neutrophils % 63.6 Lymphocytes % 25.2 Monocytes % 7.1 Eosinophils % 3.2 Basophils % 0.9 Nucleated RBC % 0 Sodium Potassium Chloride Carbon Dioxide Anion Gap BUN Creatinine Creat Clearance w eGFR POC Glucometer 84 84 Random Glucose Calcium Phosphorus Magnesium Ferritin Total Bilirubin AST ALT Alkaline Phosphatase Total Protein Albumin Hep C Ab Diagnostic Blood Type Antibody Screen Crossmatch 04/17/18 04/17/18 04/17/18 05:30 05:30 05:41 WBC RBC Hgb Hct MCV MCH MCHC RDW Plt Count MPV Absolute Neuts (auto) Neutrophils % Lymphocytes % Monocytes % Eosinophils % Basophils % Nucleated RBC % Sodium 141 Potassium 4.6 Chloride 101 Carbon Dioxide 25 Anion Gap 15 BUN 58 H Creatinine 8.7 H* Creat Clearance w eGFR 4.46 POC Glucometer 72 Random Glucose 72 L Calcium 8.0 L Phosphorus 7.6 H Magnesium 2.4 Ferritin 1401.6 H Total Bilirubin 0.3 AST 17 ALT 15 Alkaline Phosphatase 122 H Total Protein 5.2 L Albumin 2.8 L Hep C Ab Diagnostic Blood Type Antibody Screen Crossmatch Active Medications Generic Name Dose Route Start Last Admin Trade Name Freq PRN Reason Stop Dose Admin Acetaminophen 650 mg 04/14/18 18:32 04/15/18 21:03 Tylenol - PO 650 mg Q4H PRN Administration HEADACHE Albuterol/Ipratropium 1 amp 04/15/18 11:37 Duoneb - NEB Q6H PRN SHORTNESS OF BREATH Atorvastatin Calcium 40 mg 04/15/18 22:00 04/16/18 09:47 Lipitor - PO 40 mg DAILY [facility] Administration Carvedilol 12.5 mg 04/14/18 10:00 04/16/18 21:51 Coreg - PO 12.5 mg BID GRA[facility]ON Administration Epoetin Edil 8,000 unit 04/17/18 08:00 Procrit - IVPUSH 04/17/18 08:01 ONCE ONE Gabapentin 100 mg 04/15/18 22:00 04/16/18 21:51 Neurontin - PO 100 mg HS G[facility]ON Administration Sodium Chloride 250 mls @ 3,000 mls/hr 04/17/18 06:35 Normal Saline - IV 04/17/18 14:00 PRN PRN Hypotension during Dialysis Ondansetron HCl 4 mg 04/15/18 10:00 04/15/18 10:21 Zofran Injection IVPUSH 4 mg Q4H PRN Administration NAUSEA AND/OR VOMITING Pantoprazole Sodium 40 mg 04/15/18 12:00 04/16/18 09:47 Protonix - PO 40 mg DAILY [facility] Administration Pyridoxine HCl 100 mg 04/16/18 10:00 04/16/18 09:47 Vitamin B6 - PO 100 mg DAILY [facility] Administration Simethicone 80 mg 04/15/18 17:45 04/15/18 17:56 Mylicon - PO 80 mg QID PRN Administration GAS [id number] CT/ABDOMEN/PELVIS CTA W/WO CONTR Abdomen/pelvis CT angiography (without and with contrast) Clinical information: abdominal pain, rectal bleeding Multiplanar, multiphase imaging was performed following the intravenous bolus administration of nonionic contrast in addition to preliminary noncontrast scanning. Contrast extravasation is seen within the cecum on arterial phase and portal venous phase imaging. Extravasated contrast is noted to principally accumulate along the lateral and posterior lateral cecal wall. On noncontrast imaging mildly hyperdense fluid is seen within the length of the colon including the rectum presumably representing blood. The remainder of the exam demonstrates no definite interval change in comparison to a prior CT study 02/23/2018. Very extensive atherosclerotic vascular calcifications are noted. Mild cardiomegaly. Status post median sternotomy with CABG. Marked bilateral renal atrophy. Bilateral renal cortical simple and complex cysts without obvious interval change. Bilateral renal artery stents in place. Cholelithiasis. 1.4 cm left adrenal adenoma. Moderate to large left periumbilical hernia containing fat only. The liver, spleen, pancreas and right adrenal gland demonstrate no discrete abnormality. There is no aortic aneurysm. No evidence of pneumoperitoneum, free intraperitoneal fluid or bowel obstruction. 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 The visualized osseous structures demonstrate no gross acute pathology. Impression: Contrast extravasation is seen within the cecal lumen as noted above consistent with identification of a nonspecific bleeding site. No obvious diverticulosis is seen in that region. Mildly hyperdense fluid is seen opacifying the remainder of the colon including the rectum consistent with blood. ASSESSMENT/PLAN: 72yo F wtih PMH ESRD on HD (), CVA, CAD s/p CABG, DM and CHF presented to the ER wtih abdominal pain and BRBPR Lower GI bleed- abd discomfort. CT: bleeding noted in the cecum, likely AVM. -s/p 3 units PRBC total -s/p iv iron -H/H improved to 8.8...8.4 w/ 1U prbc. -monitor H/H, transfuse if less than Hgb 8 -no noted bleeding at this time, clear BMs -Golytely overnight and NPO for colonoscopy today -GI consult -pain ctl -zofran prn -simethicone for gas ESRD on HD () - c/w normal schedule, per nephro nephro consult getting EPO CHF- appears euvolemic. cont coreg HLD cont home meds DM-does not take medications? will need to med rec. BGM ACHS and ISS FEN PO hydration replete prn renal diet, Golytely overnight and NPO for colonoscopy today ppx- SCD protonix po Dispo ICU monitoring. Golytely overnight and NPO for colonoscopy today Visit type - Emergency Visit Emergency Visit: Yes ED Registration Date: 04/14/18 Care time: The patient presented to the Emergency Department on the above date and was hospitalized for further evaluation of their emergent condition. - New Patient This patient is new to me today: Yes Date on this admission: 04/17/18 - Critical Care Critical Care patient: Yes Total Critical Care Time (in minutes): 37 Critical Care Statement: The care of this patient involved high complexity decision making to prevent further life threatening deterioration of the patient 's condition and/or to evaluate & treat vital organ system(s) failure or risk of failure.
[2018-04-17] MEDS ORDERED: EPOETIN ALFA 10,000 UNIT/1 ML VIAL IVPUSH ONE (08:00)
--- NOTE | 2018-04-17 12:39 | PN ---
Teaching Attending Note Name of Resident: Amber Christina ATTENDING PHYSICIAN STATEMENT I saw and evaluated the patient. I reviewed the resident's note and discussed the case with the resident. I agree with the resident's findings and plan as documented. SUBJECTIVE: Patient seen and examined in the ICU. Awake and alert. Some mild mid-epigastric discomfort. Intake & Output 04/14/18 04/15/18 04/16/18 04/17/18 22:59 23:59 23:59 23:59 Intake Total 500 200 Output Total 0 Balance 500 200 Weight 170 lb 172 lb Last Vital Signs Temp Pulse Resp BP Pulse Ox 98.4 F 64 20 181/64 H 100 04/17/18 12:00 04/17/18 12:00 04/17/18 12:00 04/17/18 12:00 04/17/18 08:29 Active Medications Acetaminophen (Tylenol -) 650 mg PO Q4H PRN PRN Reason: HEADACHE Last Admin: 04/15/18 21:03 Dose: 650 mg Albuterol/Ipratropium (Duoneb -) 1 amp NEB Q6H PRN PRN Reason: SHORTNESS OF BREATH Atorvastatin Calcium (Lipitor -) 40 mg PO DAILY [facility] Last Admin: 04/16/18 09:47 Dose: 40 mg Carvedilol (Coreg -) 12.5 mg PO BID G[facility]ON Last Admin: 04/16/18 21:51 Dose: 12.5 mg Gabapentin (Neurontin -) 100 mg PO HS [facility]ON Last Admin: 04/16/18 21:51 Dose: 100 mg Sodium Chloride (Normal Saline -) 250 mls @ 3,000 mls/hr IV PRN PRN PRN Reason: Hypotension during Dialysis Stop: 04/17/18 14:00 Ondansetron HCl (Zofran Injection) 4 mg IVPUSH Q4H PRN PRN Reason: NAUSEA AND/OR VOMITING Last Admin: 04/15/18 10:21 Dose: 4 mg Pantoprazole Sodium (Protonix -) 40 mg PO DAILY [facility] Last Admin: 04/16/18 09:47 Dose: 40 mg Pyridoxine HCl (Vitamin B6 -) 100 mg PO DAILY [facility] Last Admin: 04/16/18 09:47 Dose: 100 mg Simethicone (Mylicon -) 80 mg PO QID PRN PRN Reason: GAS Last Admin: 04/15/18 17:56 Dose: 80 mg GEN: awake alert, nepalese speaking, NAD HEENT: PERRL, dry oral mucosa PULM: clear anterior CV: RRR ABD; soft, mid-epigastric tenderness, + BS EXT: R AVF with good thrill, trace edema, 2+ pulses NEURO: oriented, non focal IMP: GI bleed most likely from the cecum ESRD Vasculopathy Normal transfusion threshold to 8 For colonoscopy as bleeding has recurred HD per renal NPO Strict I & O Floor if stable post procedure Dr Rey
--- NOTE | 2018-04-17 13:55 | PN ---
Progress Note (short form) - Note Progress Note: Colonoscopy complete. Report left in procedural section of physical chart and to be scanned into [employer]
--- NOTE | 2018-04-17 14:49 | PN ---
Progress Note, Physician History of Present Illness: Pt seen and examined at bedside. She tolerated HD. She denies shortness of breath. She did have her endoscopy today. - Current Medication List Current Medications: Active Medications Acetaminophen (Tylenol -) 650 mg PO Q4H PRN PRN Reason: HEADACHE Last Admin: 04/15/18 21:03 Dose: 650 mg Albuterol/Ipratropium (Duoneb -) 1 amp NEB Q6H PRN PRN Reason: SHORTNESS OF BREATH Atorvastatin Calcium (Lipitor -) 40 mg PO DAILY [facility] Last Admin: 04/16/18 09:47 Dose: 40 mg Carvedilol (Coreg -) 12.5 mg PO BID [facility] Last Admin: 04/16/18 21:51 Dose: 12.5 mg Gabapentin (Neurontin -) 100 mg PO HS [facility] Last Admin: 04/16/18 21:51 Dose: 100 mg Ondansetron HCl (Zofran Injection) 4 mg IVPUSH Q4H PRN PRN Reason: NAUSEA AND/OR VOMITING Last Admin: 04/15/18 10:21 Dose: 4 mg Pantoprazole Sodium (Protonix -) 40 mg PO DAILY [facility] Last Admin: 04/16/18 09:47 Dose: 40 mg Pyridoxine HCl (Vitamin B6 -) 100 mg PO DAILY [facility] Last Admin: 04/16/18 09:47 Dose: 100 mg Simethicone (Mylicon -) 80 mg PO QID PRN PRN Reason: GAS Last Admin: 04/15/18 17:56 Dose: 80 mg - Objective Vital Signs: Vital Signs Temperature 98 F 04/17/18 13:40 Pulse Rate 65 04/17/18 14:10 Respiratory Rate 15 04/17/18 14:10 Blood Pressure 164/72 04/17/18 14:10 O2 Sat by Pulse Oximetry (%) 100 04/17/18 08:29 Constitutional: Yes: Calm Eyes: Yes: Conjunctiva Clear HENT: Yes: Atraumatic Neck: Yes: Supple Cardiovascular: Yes: S1, S2 Respiratory: Yes: On Nasal O2 Gastrointestinal: Yes: Normal Bowel Sounds, Soft Genitourinary: Yes: WNL Musculoskeletal: Yes: WNL Edema: No Neurological: Yes: Oriented Psychiatric: Yes: Oriented Labs: CBC, BMP 04/17/18 05:30 04/17/18 05:30 INR, PTT INR 0.96 (0.83-1.09) 04/13/18 17:50 Assessment/Plan Current Medications Generic Name Dose Route Start Last Admin Trade Name Jessica PRN Reason Stop Dose Admin Acetaminophen 650 mg 04/14/18 18:32 04/15/18 21:03 Tylenol - PO 650 mg Q4H PRN Administration HEADACHE Albuterol/Ipratropium 1 amp 04/15/18 11:37 Duoneb - NEB Q6H PRN SHORTNESS OF BREATH Atorvastatin Calcium 40 mg 04/15/18 22:00 04/16/18 09:47 Lipitor - PO 40 mg DAILY [facility] Administration Carvedilol 12.5 mg 04/14/18 10:00 04/16/18 21:51 Coreg - PO 12.5 mg BID G[facility]ON Administration Gabapentin 100 mg 04/15/18 22:00 04/16/18 21:51 Neurontin - PO 100 mg HS G[facility]ON Administration Ondansetron HCl 4 mg 04/15/18 10:00 04/15/18 10:21 Zofran Injection IVPUSH 4 mg Q4H PRN Administration NAUSEA AND/OR VOMITING Pantoprazole Sodium 40 mg 04/15/18 12:00 04/16/18 09:47 Protonix - PO 40 mg DAILY [facility] Administration Pyridoxine HCl 100 mg 04/16/18 10:00 04/16/18 09:47 Vitamin B6 - PO 100 mg DAILY [facility] Administration Simethicone 80 mg 04/15/18 17:45 04/15/18 17:56 Mylicon - PO 80 mg QID PRN Administration GAS Impression 1. ESRD 2. GI bleed 3. CAD 4. HTN 5. DM 6. anemia 7. hx syncope 8. 1.4 cm left adrenal adenoma Plan - pt tolerated HD - pt s/p endoscopy - monitor hg - GI workup in progress - discussed with ICU team
[2018-04-17] MEDS ORDERED: amLODIPine BESYLATE 5 MG TABLET (FP) PO ONE (15:05)
[2018-04-17] MEDS: CARVEDILOL 12.5 MG TABLET (FP) PO SCH ×2 (15:11→22:03)
[2018-04-17] MEDS: PANTOPRAZOLE 40 MG TABLET (FP) PO SCH (15:12)
[2018-04-17] MEDS: ATORVASTATIN CA 40 MG TABLET (FP) PO SCH (15:12)
[2018-04-17] MEDS: PYRIDOXINE HCL (B-6) 50 MG TABLET (FP) PO SCH (15:15)
--- NOTE | 2018-04-17 17:37 | PN ---
Teaching Attending Note Name of Resident: Mesfin Santacruz ATTENDING PHYSICIAN STATEMENT I saw and evaluated the patient. I reviewed the resident's note and discussed the case with the resident. I agree with the resident's findings and plan as documented. SUBJECTIVE: Feels better. No further bloody bowel movements. No abdominal pain/ nausea/vomiting/melena/hematemesis. No chest pain/palpitations/SOB. OBJECTIVE: Afebrile, Hemodynamically Stable. Last Vital Signs Temp Pulse Resp BP Pulse Ox 98 F 72 16 132/63 100 04/17/18 13:40 04/17/18 16:00 04/17/18 16:00 04/17/18 16:00 04/17/18 08:29 HEENT - Atraumatic, Normocephalic. Heart - S1, S2, RRR Lungs - clear to auscultation. Abdomen - soft, mild generalized tenderness. Bowel Sounds normal. Extremities - no edema. No calf tenderness. Laboratory Results - last 24 hr 04/14/18 04/16/18 04/16/18 01:53 18:13 21:57 WBC RBC Hgb Hct MCV MCH MCHC RDW Plt Count MPV Absolute Neuts (auto) Neutrophils % Lymphocytes % Monocytes % Eosinophils % Basophils % Nucleated RBC % Sodium Potassium Chloride Carbon Dioxide Anion Gap BUN Creatinine Creat Clearance w eGFR POC Glucometer 84 84 Random Glucose Calcium Phosphorus Magnesium Ferritin Total Bilirubin AST ALT Alkaline Phosphatase Total Protein Albumin Blood Type O POSITIVE Antibody Screen Negative Crossmatch See Detail 04/17/18 04/17/18 04/17/18 05:30 05:30 05:30 WBC 5.9 RBC 2.59 L Hgb 8.4 L Hct 24.2 L MCV 93.5 MCH 32.4 MCHC 34.7 RDW 15.6 Plt Count 178 MPV 9.0 Absolute Neuts (auto) 3.7 Neutrophils % 63.6 Lymphocytes % 25.2 Monocytes % 7.1 Eosinophils % 3.2 Basophils % 0.9 Nucleated RBC % 0 Sodium 141 Potassium 4.6 Chloride 101 Carbon Dioxide 25 Anion Gap 15 BUN 58 H Creatinine 8.7 H* Creat Clearance w eGFR 4.46 POC Glucometer Random Glucose 72 L Calcium 8.0 L Phosphorus 7.6 H Magnesium 2.4 Ferritin 1401.6 H Total Bilirubin 0.3 AST 17 ALT 15 Alkaline Phosphatase 122 H Total Protein 5.2 L Albumin 2.8 L Blood Type Antibody Screen Crossmatch 04/17/18 04/17/18 05:41 12:01 WBC RBC Hgb Hct MCV MCH MCHC RDW Plt Count MPV Absolute Neuts (auto) Neutrophils % Lymphocytes % Monocytes % Eosinophils % Basophils % Nucleated RBC % Sodium Potassium Chloride Carbon Dioxide Anion Gap BUN Creatinine Creat Clearance w eGFR POC Glucometer 72 93 Random Glucose Calcium Phosphorus Magnesium Ferritin Total Bilirubin AST ALT Alkaline Phosphatase Total Protein Albumin Blood Type Antibody Screen Crossmatch Current Medications Generic Name Dose Route Start Last Admin Trade Name Freq PRN Reason Stop Dose Admin Acetaminophen 650 mg 04/14/18 18:32 04/15/18 21:03 Tylenol - PO 650 mg Q4H PRN Administration HEADACHE Albuterol/Ipratropium 1 amp 04/15/18 11:37 Duoneb - NEB Q6H PRN SHORTNESS OF BREATH Amlodipine Besylate 5 mg 04/18/18 10:00 Norvasc - PO DAILY [facility] Atorvastatin Calcium 40 mg 04/15/18 22:00 04/17/18 15:12 Lipitor - PO 40 mg DAILY [facility] Administration Carvedilol 12.5 mg 04/14/18 10:00 04/17/18 15:11 Coreg - PO 12.5 mg BID G[facility]ON Administration Gabapentin 100 mg 04/15/18 22:00 04/16/18 21:51 Neurontin - PO 100 mg HS [facility]ON Administration Ondansetron HCl 4 mg 04/15/18 10:00 04/15/18 10:21 Zofran Injection IVPUSH 4 mg Q4H PRN Administration NAUSEA AND/OR VOMITING Pantoprazole Sodium 40 mg 04/15/18 12:00 04/17/18 15:12 Protonix - PO 40 mg DAILY [facility] Administration Pyridoxine HCl 100 mg 04/16/18 10:00 04/17/18 15:15 Vitamin B6 - PO 100 mg DAILY [facility] Administration Simethicone 80 mg 04/15/18 17:45 04/15/18 17:56 Mylicon - PO 80 mg QID PRN Administration GAS ASSESSMENT AND PLAN: 72 year old female with history of ESRD on HD, CAD s/p CABG, HTN, Chronic Diastolic HF, presented to ED with abdominal pain and BRBPR. No fever/chills/ nausea/vomiting. 1. Acute Blood Loss Anemia secondary to Lower GI bleed - bleeding noted in the cecum on CT A/P, likely AVM, awaiting Colonoscopy. H/H 8.4/24.2 s/p 3 units PRBCs. GI Px on Protonix. 2. ESRD on HD - Nephrology following. 3. Chronic Diastolic HF - Stable. Continue Coreg. 4. HTN - Continue Coreg, Norvasc. 5. Adrenal Adenoma - requires out-patient work-up. 6. Reported DM 2 - Fingersticks appear controlled. Not on medications. Will request A1C. DVT Px - SCDs.
[2018-04-17] MEDS ORDERED: IRON SUCROSE INJECTION 100 MG in SODIUM CHLORIDE 95 ML IVPB ONE (18:58)
[2018-04-17] MEDS: GABAPENTIN 100 MG CAPSULE (FP) PO SCH (22:03)
[2018-04-17 23:12] LABS: HBSAG SCREEN Negative (Negative); HEP A AB, IGM Negative (Negative); HEP B CORE AB, TOT Negative (Negative)
[2018-04-18 06:02] LABS: EOS % 2.7 % (0-4.5); HEMATOCRIT 27.1 % (32.4-45.2); HEMOGLOBIN 9.3 GM/dL (10.7-15.3); LYMPH % 23.9 % (8-40); MCH 32.1 pg (25.7-33.7); MCHC 34.3 g/dl (32.0-36.0); MEAN CELL VOLUME 93.6 fl (80-96); MEAN PLT VOLUME 9.3 fl (7.5-11.1); MONO % 7.4 % (3.8-10.2); PLATELET COUNT 208 K/MM3 (134-434); RBC 2.89 M/mm3 (3.60-5.2); WHITE BLOOD COUNT 5.8 K/mm3 (4.0-10.0)
[2018-04-18 06:41] LABS: ALBUMIN 2.8 g/dl (3.4-5.0); ALK PHOS 119 U/L (45-117); ANION GAP 11 MMOL/L (8-16); BILIRUBIN,TOTAL 0.3 mg/dL (0.2-1); BLOOD UREA NITROGEN 21 mg/dL (7-18); CALCIUM 8.4 mg/dL (8.5-10.1); CHLORIDE 98 mmol/L (98-107); CO2 29 mmol/L (21-32); CREATININE 5.1 mg/dL (0.55-1.3); GLUCOSE,RANDOM 89 mg/dL (74-106); POTASSIUM 3.8 mmol/L (3.5-5.1); SGOT/AST 21 U/L (15-37); SGPT/ALT 17 U/L (13-61); SODIUM 137 mmol/L (136-145); TOT PROT 5.3 g/dl (6.4-8.2)
[2018-04-18] MEDS ORDERED: ONDANSETRON 4 MG/2 ML VIAL IVPUSH PRN (07:21)
[2018-04-18] MEDS ORDERED: SIMETHICONE 80 MG TAB.CHEW (FP) PO PRN (07:21)
[2018-04-18] MEDS ORDERED: ACETAMINOPHEN 325 MG TABLET (FP) PO PRN (07:21)
[2018-04-18] MEDS ORDERED: ONDANSETRON 4 MG/2 ML VIAL IVPUSH ONE (07:21)
[2018-04-18] MEDS ORDERED: ALBUTEROL SO4 2.5/IPRATROPIUM 0.5 INH SOL 3 ML VIAL.NEB. NEB PRN (07:21)
--- NOTE | 2018-04-18 07:34 | PN ---
Physical Exam: SUBJECTIVE: Patient seen and examined. Had colonoscopy yesterday that showed diverticulosis, a visible vessel with no obvious bleed. Had endoclip. No more black stools, no n/v, no abdominal pain. No chest pain, OOB. OBJECTIVE: Vital Signs Period Temp Pulse Resp BP Sys/Rodriguez Pulse Ox Last 24 Hr 97.8 F-98.4 F 61-92 11-20 108-183/54-78 100-100 Vital Signs Temp 97.8 F 04/18/18 02:00 Pulse 64 04/18/18 06:00 Resp 18 04/18/18 06:00 BP 170/63 04/18/18 06:00 Pulse Ox 100 04/17/18 20:00 Intake & Output 04/17/18 04/17/18 04/18/18 11:59 23:59 11:59 Intake Total 200 600 50 Balance 200 600 50 Weight 78.018 kg 78.018 kg Intake: IV 100 Oral 200 500 50 Other: Voiding Method Incontinent # Unmeasured Voids Void 2 0 0 Bowel Movement Yes: 4 Yes # Bowel Movements 4 4 Weight Measurement Method [facility] in [facility] GENERAL: The patient is awake, alert, and fully oriented, in no acute distress, having breakfast. HEAD: Normal with no signs of trauma. EYES: PERRL, extraocular movements intact, sclera anicteric, conjunctiva clear. ENT:moist mucous membranes. LUNGS: Breath sounds equal, clear to auscultation bilaterally HEART: Regular rate and rhythm, S1, S2 ABDOMEN: L paraumbilical hernia, healed vertical surgical scar. Soft, mild tenderness around hernia site, nondistended, normoactive bowel sounds EXTREMITIES: 2+ pulses, warm, well-perfused, no edema. RUE av fistula NEUROLOGICAL: Cranial nerves II through XII grossly intact. Normal speech, ambulating with PT with support g CBC, BMP 04/18/18 05:30 04/18/18 05:30 Laboratory Results - last 24 hr 04/14/18 04/14/18 04/17/18 01:53 07:15 12:01 WBC RBC Hgb Hct MCV MCH MCHC RDW Plt Count MPV Absolute Neuts (auto) Neutrophils % Lymphocytes % Monocytes % Eosinophils % Basophils % Nucleated RBC % Sodium Potassium Chloride Carbon Dioxide Anion Gap BUN Creatinine Creat Clearance w eGFR POC Glucometer 93 Random Glucose Calcium Total Bilirubin AST ALT Alkaline Phosphatase Total Protein Albumin Hep A IgM Ab Confirm Negative Hepatitis A Ab Total Positive H Hep Bs Antigen Negative Hep Bs Antibody Non reactive Hep B Core Total Ab Negative Blood Type O POSITIVE Antibody Screen Negative Crossmatch See Detail 04/17/18 04/18/18 04/18/18 18:23 05:30 05:30 WBC 5.8 RBC 2.89 L Hgb 9.3 L Hct 27.1 L MCV 93.6 MCH 32.1 MCHC 34.3 RDW 15.0 Plt Count 208 MPV 9.3 Absolute Neuts (auto) 3.8 Neutrophils % 65.0 Lymphocytes % 23.9 Monocytes % 7.4 Eosinophils % 2.7 Basophils % 1.0 Nucleated RBC % 0 Sodium 137 Potassium 3.8 Chloride 98 Carbon Dioxide 29 Anion Gap 11 BUN 21 H Creatinine 5.1 H Creat Clearance w eGFR 8.27 POC Glucometer 76 Random Glucose 89 Calcium 8.4 L Total Bilirubin 0.3 AST 21 ALT 17 Alkaline Phosphatase 119 H Total Protein 5.3 L Albumin 2.8 L Hep A IgM Ab Confirm Hepatitis A Ab Total Hep Bs Antigen Hep Bs Antibody Hep B Core Total Ab Blood Type Antibody Screen Crossmatch Active Medications Generic Name Dose Route Start Last Admin Trade Name Freq PRN Reason Stop Dose Admin Acetaminophen 650 mg 04/18/18 07:21 Tylenol - PO Q4H PRN HEADACHE Albuterol/Ipratropium 1 amp 04/18/18 07:21 Duoneb - NEB Q6H PRN SHORTNESS OF BREATH Amlodipine Besylate 5 mg 04/18/18 10:00 Norvasc - PO DAILY [facility] Atorvastatin Calcium 40 mg 04/18/18 10:00 Lipitor - PO DAILY [facility] Carvedilol 12.5 mg 04/18/18 10:00 Coreg - PO BID [facility] Gabapentin 100 mg 04/18/18 22:00 Neurontin - PO HS [facility] Ondansetron HCl 4 mg 04/18/18 07:21 Zofran Injection IVPUSH Q4H PRN NAUSEA AND/OR VOMITING Pantoprazole Sodium 40 mg 04/18/18 10:00 Protonix - PO DAILY [facility] Pyridoxine HCl 100 mg 04/18/18 10:00 Vitamin B6 - PO DAILY [facility] Simethicone 80 mg 04/18/18 07:21 Mylicon - PO QID PRN GAS Colonoscopy 04/17/18: Moderated diverticulosis sigmoid and descending colon, solitary diverticulosis base of caecum with non bleeding visible vessel, endoclipped ASSESSMENT/PLAN: 72yo F wtih PMH ESRD on HD, CHF, CVA, CAD, CABG, abdominal hernia, DM and CHF presented to the ER with abdominal pain and BRBPR, no s/p endoscopy and colonoscopy Neuro Syncope-like symptoms on presentation, with positive orthostatics BP, Due to acute GI bleed, now resolved Hx of CVA- no residual symptoms, cont statins, coreg Resp Stable Cardio Hx of CABG Maintain Hgb at 8, transfuse as needed, received PRBCs (3 units) HTN, cont meds HLD, cont statins GI Recent GI bleed requiring transfusion of RBCs- on 04/13, 04/14, 04/16 No more bloody stools Recent colonoscopy (04/17/18) with endo clip of visible vessel GERD hx Cont protonix s/p hemicolectomy Recent diverticulosis diagnosis on colonoscopy, AVM on CT scan , and severe LGI bleed requiring transfusion Metab Hx of DM, not on meds No hyperglycemia Renal ESRD on dialysis TTHSa Lines RUE- peripheral line Dispo Pending transfer to [facility] surg Visit type - Emergency Visit Emergency Visit: Yes ED Registration Date: 04/14/18 Care time: The patient presented to the Emergency Department on the above date and was hospitalized for further evaluation of their emergent condition. - New Patient This patient is new to me today: No - Critical Care Critical Care patient: Yes Total Critical Care Time (in minutes): 35 Critical Care Statement: The care of this patient involved high complexity decision making to prevent further life threatening deterioration of the patient 's condition and/or to evaluate & treat vital organ system(s) failure or risk of failure. - Discharge Referral Referred to [facility] Med P.C.: No
[2018-04-18] MEDS ORDERED: CARVEDILOL 12.5 MG TABLET (FP) PO SCH (10:00)
[2018-04-18] MEDS ORDERED: ATORVASTATIN CA 40 MG TABLET (FP) PO SCH (10:00)
[2018-04-18] MEDS ORDERED: PYRIDOXINE HCL (B-6) 50 MG TABLET (FP) PO SCH (10:00)
[2018-04-18] MEDS ORDERED: amLODIPine BESYLATE 5 MG TABLET (FP) PO SCH (10:00)
[2018-04-18] MEDS ORDERED: PANTOPRAZOLE 40 MG TABLET (FP) PO SCH (10:00)
[2018-04-18] MEDS ORDERED: PT OWN MED DRAWER 7, Y5N ONE ×2 (10:01→10:06)
--- NOTE | 2018-04-18 11:23 | PN ---
Teaching Attending Note Name of Resident: Delores Aiken ATTENDING PHYSICIAN STATEMENT I saw and evaluated the patient. I reviewed the resident's note and discussed the case with the resident. I agree with the resident's findings and plan as documented. SUBJECTIVE: Pt seen and examined in the ICU. s/p colonoscopy showing diverticulosis s/p endoclipping. No further bleeding noted. Brown stools this AM. OBJECTIVE: Vital Signs Period Temp Pulse Resp BP Sys/Rodriguez Pulse Ox Last 24 Hr 97.8 F-99.5 F 62-95 11-20 108-181/54-72 100-100 Intake & Output 04/15/18 04/16/18 04/17/18 04/18/18 23:59 23:59 23:59 23:59 Intake Total 500 800 50 Output Total 0 Balance 500 800 50 Weight 77.111 kg 78.018 kg 78.018 kg Gen: NAD in chair Heart: RRR Lung: decreased breath sounds at the bases Abd: soft, +ventral hernia tender but reducible Ext: no edema CBC, BMP 04/18/18 05:30 04/18/18 05:30 Active Medications Acetaminophen (Tylenol -) 650 mg PO Q4H PRN PRN Reason: HEADACHE Albuterol/Ipratropium (Duoneb -) 1 amp NEB Q6H PRN PRN Reason: SHORTNESS OF BREATH Amlodipine Besylate (Norvasc -) 5 mg PO DAILY [facility] Last Admin: 04/18/18 10:08 Dose: 5 mg Atorvastatin Calcium (Lipitor -) 40 mg PO DAILY [facility] Last Admin: 04/18/18 10:08 Dose: 40 mg Carvedilol (Coreg -) 12.5 mg PO BID [facility] Last Admin: 04/18/18 10:09 Dose: 12.5 mg Gabapentin (Neurontin -) 100 mg PO HS [facility] Ondansetron HCl (Zofran Injection) 4 mg IVPUSH Q4H PRN PRN Reason: NAUSEA AND/OR VOMITING Pantoprazole Sodium (Protonix -) 40 mg PO DAILY [facility] Last Admin: 04/18/18 10:08 Dose: 40 mg Pyridoxine HCl (Vitamin B6 -) 100 mg PO DAILY [facility] Last Admin: 04/18/18 10:07 Dose: 100 mg Simethicone (Mylicon -) 80 mg PO QID PRN PRN Reason: GAS ASSESSMENT AND PLAN: GI Bleed Diverticulosis Acute Blood Loss Anemia s/p colonoscopy/endoclip ESRD on HD CAD CHF DM h/o CVA - monitor H/H - PO as tolerated - HD per renal - can monitor on floor
--- NOTE | 2018-04-18 11:55 | PN ---
Progress Note, Physician Chief Complaint: Diverticular bleed History of Present Illness: Has done well since colonoscopy, diverticular bleed with source identified and visible vessel clipped. NO blood or other output per rectum. No other evidence of rebleed. No abdominal pain or discomfort. - Current Medication List Current Medications: Active Medications Acetaminophen (Tylenol -) 650 mg PO Q4H PRN PRN Reason: HEADACHE Albuterol/Ipratropium (Duoneb -) 1 amp NEB Q6H PRN PRN Reason: SHORTNESS OF BREATH Amlodipine Besylate (Norvasc -) 5 mg PO DAILY [facility] Last Admin: 04/18/18 10:08 Dose: 5 mg Atorvastatin Calcium (Lipitor -) 40 mg PO DAILY [facility] Last Admin: 04/18/18 10:08 Dose: 40 mg Carvedilol (Coreg -) 12.5 mg PO BID [facility] Last Admin: 04/18/18 10:09 Dose: 12.5 mg Gabapentin (Neurontin -) 100 mg PO HS [facility] Ondansetron HCl (Zofran Injection) 4 mg IVPUSH Q4H PRN PRN Reason: NAUSEA AND/OR VOMITING Pantoprazole Sodium (Protonix -) 40 mg PO DAILY [facility] Last Admin: 04/18/18 10:08 Dose: 40 mg Pyridoxine HCl (Vitamin B6 -) 100 mg PO DAILY [facility] Last Admin: 04/18/18 10:07 Dose: 100 mg Simethicone (Mylicon -) 80 mg PO QID PRN PRN Reason: GAS - Objective Vital Signs: Vital Signs Temperature 99.5 F 04/18/18 10:00 Pulse Rate 95 H 04/18/18 10:00 Respiratory Rate 12 04/18/18 10:00 Blood Pressure 141/54 L 04/18/18 08:00 O2 Sat by Pulse Oximetry (%) 100 04/18/18 08:59 Cardiovascular: Yes: Regular Rate and Rhythm, S1, S2. No: Murmur Respiratory: Yes: CTA Bilaterally Gastrointestinal: Yes: Normal Bowel Sounds, Soft. No: Palpable Mass, Tenderness Labs: CBC, BMP 04/18/18 05:30 04/18/18 05:30 INR, PTT INR 0.96 (0.83-1.09) 04/13/18 17:50 Problem List - Problems (1) GI bleed Code(s): K92.2 - GASTROINTESTINAL HEMORRHAGE, UNSPECIFIED Qualifiers: GI bleed type/associated pathology: unspecified gastrointestinal hemorrhage type Qualified Code(s): K92.2 - Gastrointestinal hemorrhage, unspecified Assessment/Plan Advance diet Continue VS observation and serial hemoglobins Even with clips, at risk for re-bleed given visible vessel
--- NOTE | 2018-04-18 13:18 | PN ---
Progress Note, Physician History of Present Illness: Pt seen and examined at bedside. She is awake and alert. She denies shortness of breath. - Current Medication List Current Medications: Active Medications Acetaminophen (Tylenol -) 650 mg PO Q4H PRN PRN Reason: HEADACHE Albuterol/Ipratropium (Duoneb -) 1 amp NEB Q6H PRN PRN Reason: SHORTNESS OF BREATH Amlodipine Besylate (Norvasc -) 5 mg PO DAILY [facility] Last Admin: 04/18/18 10:08 Dose: 5 mg Atorvastatin Calcium (Lipitor -) 40 mg PO DAILY [facility] Last Admin: 04/18/18 10:08 Dose: 40 mg Carvedilol (Coreg -) 12.5 mg PO BID [facility] Last Admin: 04/18/18 10:09 Dose: 12.5 mg Gabapentin (Neurontin -) [address] [facility] Ondansetron HCl (Zofran Injection) 4 mg IVPUSH Q4H PRN PRN Reason: NAUSEA AND/OR VOMITING Pantoprazole Sodium (Protonix -) 40 mg PO DAILY [facility] Last Admin: 04/18/18 10:08 Dose: 40 mg Pyridoxine HCl (Vitamin B6 -) 100 mg PO DAILY [facility] Last Admin: 04/18/18 10:07 Dose: 100 mg Simethicone (Mylicon -) 80 mg PO QID PRN PRN Reason: GAS - Objective Vital Signs: Vital Signs Temperature 99.5 F 04/18/18 10:00 Pulse Rate 95 H 04/18/18 10:00 Respiratory Rate 12 04/18/18 10:00 Blood Pressure 141/54 L 04/18/18 08:00 O2 Sat by Pulse Oximetry (%) 100 04/18/18 08:59 Constitutional: Yes: Calm Eyes: Yes: Conjunctiva Clear HENT: Yes: Atraumatic Cardiovascular: Yes: S1, S2 Respiratory: Yes: CTA Bilaterally Gastrointestinal: Yes: Normal Bowel Sounds, Soft Genitourinary: Yes: WNL Musculoskeletal: Yes: WNL Edema: No Neurological: Yes: Oriented Psychiatric: Yes: Oriented Labs: CBC, BMP 04/18/18 05:30 04/18/18 05:30 INR, PTT INR 0.96 (0.83-1.09) 04/13/18 17:50 Assessment/Plan Current Medications Generic Name Dose Route Start Last Admin Trade Name Freq PRN Reason Stop Dose Admin Acetaminophen 650 mg 04/18/18 07:21 Tylenol - PO Q4H PRN HEADACHE Albuterol/Ipratropium 1 amp 04/18/18 07:21 Duoneb - NEB Q6H PRN SHORTNESS OF BREATH Amlodipine Besylate 5 mg 04/18/18 10:00 04/18/18 10:08 Norvasc - PO 5 mg DAILY [facility] Administration Atorvastatin Calcium 40 mg 04/18/18 10:00 04/18/18 10:08 Lipitor - PO 40 mg DAILY [facility] Administration Carvedilol 12.5 mg 04/18/18 10:00 04/18/18 10:09 Coreg - PO 12.5 mg BID [facility] Administration Gabapentin 100 mg 04/18/18 22:00 Neurontin - PO HS [facility] Ondansetron HCl 4 mg 04/18/18 07:21 Zofran Injection IVPUSH Q4H PRN NAUSEA AND/OR VOMITING Pantoprazole Sodium 40 mg 04/18/18 10:00 04/18/18 10:08 Protonix - PO 40 mg DAILY [facility] Administration Pyridoxine HCl 100 mg 04/18/18 10:00 04/18/18 10:07 Vitamin B6 - PO 100 mg DAILY [facility] Administration Simethicone 80 mg 04/18/18 07:21 Mylicon - PO QID PRN GAS Impression 1. ESRD 2. GI bleed 3. CAD 4. HTN 5. DM 6. anemia 7. hx syncope 8. 1.4 cm left adrenal adenoma Plan - pt tolerated HD yesterday - will arrange for HD tomorrow - epogen for anemia - monitor hg
[2018-04-18] MEDS ORDERED: SODIUM CHLORIDE 250 ML IV PRN (13:19)
--- NOTE | 2018-04-18 15:41 | DS ---
Physical Exam: SUBJECTIVE: Patient seen and examined at bedside. Had colonoscopy yesterday that showed diverticulosis, a visible vessel in the cecum with no obvious bleed. Had endoclip. No more black stools, no n/v. No chest pain, sob, fever, OOB. some abdominal tenderness but improving. OBJECTIVE: Vital Signs Period Temp Pulse Resp BP Sys/Rodriguez Pulse Ox Last 24 Hr 97.8 F-99.5 F 62-95 11-18 108-170/54-71 100-100 PHYSICAL EXAM GENERAL: AOX3 NAD HEAD: NCAT EYES: PERRL, extraocular movements intact, sclera anicteric, conjunctiva clear. No ptosis. ENT: nares patent, oropharynx clear without exudates, MMM NECK: Trachea midline, full range of motion, supple. LUNGS: CATB HEART: RRR, S1, S2 without murmur, rub or gallop. ABDOMEN: Soft, mildy diffusely tender, ND, normoactive bowel sounds, no guarding , no rebound, no masses. +L sided reducible hernia mildly ttp EXTREMITIES: 2+ pulses, warm, well-perfused, no edema. R AVF with good thrill NEUROLOGICAL: Cranial nerves II through XII grossly intact. Normal speech, gait not observed. PSYCH: Normal mood, normal affect. SKIN: Warm, dry, normal turgor, no rashes or lesions noted LABS Laboratory Results - last 24 hr 04/14/18 04/17/18 04/17/18 07:15 05:30 14:30 WBC RBC Hgb Hct MCV MCH MCHC RDW Plt Count MPV Absolute Neuts (auto) Neutrophils % Lymphocytes % Monocytes % Eosinophils % Basophils % Nucleated RBC % Sodium Potassium Chloride Carbon Dioxide Anion Gap BUN Creatinine Creat Clearance w eGFR POC Glucometer Random Glucose Hemoglobin A1c % 4.8 Calcium Iron 30 Total Bilirubin AST ALT Alkaline Phosphatase Total Protein Albumin Hep A IgM Ab Confirm Negative Hepatitis A Ab Total Positive H Hep Bs Antigen Negative Hep Bs Antibody Non reactive Hep B Core Total Ab Negative 04/17/18 04/18/18 04/18/18 18:23 05:30 05:30 WBC 5.8 RBC 2.89 L Hgb 9.3 L Hct 27.1 L MCV 93.6 MCH 32.1 MCHC 34.3 RDW 15.0 Plt Count 208 MPV 9.3 Absolute Neuts (auto) 3.8 Neutrophils % 65.0 Lymphocytes % 23.9 Monocytes % 7.4 Eosinophils % 2.7 Basophils % 1.0 Nucleated RBC % 0 Sodium 137 Potassium 3.8 Chloride 98 Carbon Dioxide 29 Anion Gap 11 BUN 21 H Creatinine 5.1 H Creat Clearance w eGFR 8.27 POC Glucometer 76 Random Glucose 89 Hemoglobin A1c % Calcium 8.4 L Iron Total Bilirubin 0.3 AST 21 ALT 17 Alkaline Phosphatase 119 H Total Protein 5.3 L Albumin 2.8 L Hep A IgM Ab Confirm Hepatitis A Ab Total Hep Bs Antigen Hep Bs Antibody Hep B Core Total Ab [id number] CT/ABDOMEN/PELVIS CTA W/WO CONTR Abdomen/pelvis CT angiography (without and with contrast) Clinical information: abdominal pain, rectal bleeding Multiplanar, multiphase imaging was performed following the intravenous bolus administration of nonionic contrast in addition to preliminary noncontrast scanning. Contrast extravasation is seen within the cecum on arterial phase and portal venous phase imaging. Extravasated contrast is noted to principally accumulate along the lateral and posterior lateral cecal wall. On noncontrast imaging mildly hyperdense fluid is seen within the length of the colon including the rectum presumably representing blood. The remainder of the exam demonstrates no definite interval change in comparison to a prior CT study 02/23/2018. Very extensive atherosclerotic vascular calcifications are noted. Mild cardiomegaly. Status post median sternotomy with CABG. Marked bilateral renal atrophy. Bilateral renal cortical simple and complex cysts without obvious interval change. Bilateral renal artery stents in place. Cholelithiasis. 1.4 cm left adrenal adenoma. Moderate to large left periumbilical hernia containing fat only. The liver, spleen, pancreas and right adrenal gland demonstrate no discrete abnormality. There is no aortic aneurysm. No evidence of pneumoperitoneum, free intraperitoneal fluid or bowel obstruction. 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 The visualized osseous structures demonstrate no gross acute pathology. Impression: Contrast extravasation is seen within the cecal lumen as noted above consistent with identification of a nonspecific bleeding site. No obvious diverticulosis is seen in that region. Mildly hyperdense fluid is seen opacifying the remainder of the colon including the rectum consistent with blood. HOSPITAL COURSE: Date of Admission:04/14/18 Date of Discharge: 04/18/18 Had 72yo F wtih PMH ESRD on HD (/), CVA, CAD s/p CABG, DM and CHF presented to the ER wtih abdominal pain and BRBPR Admitted for BRBPR/Lower GI bleed- CT: bleeding noted in the cecum, likely AVM. H/H dropped from 11.2 to 9 and was a low of 7.1. pt received a total of pt 3 units PRBC during hospital course and s/p iv iron . pt was monitored in ICU. GI consulted. pt went for colonoscopy (04/17/18) that showed diverticulosis and a visible vessel in the cecum with no obvious bleed. s/p endoclip. Even with clips, at risk for re-bleed given visible vessel. pt now having clear BM. no more active bleeding and H/H has stabilized at 9.3. pt cleared by GI and will require f/u CBC at either HD or w/ PCP within 1 week. pt also noted w/ cp and back pain 2/2 indigestion/gas, was given simethicone, ppi and maalox w/ relief 1.4 cm left adrenal adenoma. pt informed to f/u outpt for monitoring and possible f/u imaging pt HD stable and ready for dc w/ appropriate f/u Minutes to complete discharge: 38 Discharge Summary Reason For Visit: ATYPICAL CHEST PAIN Current Active Problems GI bleed (Acute) Dialysis patient (Chronic) Condition: Improved - Instructions Diet, Activity, Other Instructions: you came in with abdominal pain and blood in your stools. CT of your stomach showed bleeding in the colon. your blood level was low so we gave you blood transfusion, iron, and did a colonoscopy. colonoscopy showed a blood vessel at the entrance of your colon which was likely the source of your bleed. we put a surgical clip on the blood vessel to prevent further bleeds. You may however still be at risk for bleeds so please monitor your stools for bloos and please go to the dialysis center or have your primary care physician check your CBC/ hemoglobin blood level count to make sure you are not bleeding anymore. Of note, CT of your stomach showed a small mass on your left adrenal gland/on top of your kidney. There are many causes for this, some of which may include malignancy. Please follow up with your primary care physician or [employer] about any potential further imaging or monitoring that would be needed. Please resume your home meds Please go to dialysis on your scheduled days of Monday, , and Saturday. Please follow up with your primary care physician within 1 week Please follow up with your [employer] Dr. Mosquera within 1 week Please follow up with Toby Maker Dr. Sinha within 1 week If you experience any more or worsening abdominal pain, bright red blood in your stools or persistent black stools, chest pain, shortness of breath, nausea , vomit, please call 911 or go to the ER Referrals: Ricco Moffett MD [Primary Care Provider] - 1 Week Yadira Mosquera MD [Staff Physician] - 1 Week aGbino Sinha MD [Staff Physician] - 1 Week Disposition: HOME - Home Medications Comprehensive Discharge Medication List: Ambulatory Orders Gabapentin 100 mg PO HS 09/20/16 Pyridoxine HCl (Vitamin B6) [Vitamin B-6] 100 mg PO DAILY 09/27/17 Atorvastatin Ca [Lipitor] 40 mg PO DAILY 10/10/17 Carvedilol 12.5 mg PO BID #60 tablet 02/25/18 Amlodipine Besylate 5 mg PO DAILY 04/17/18 This patient is new to me today: Yes Date on this admission: 04/18/18 Emergency Visit: Yes ED Registration Date: 04/14/18 Care time: The patient presented to the Emergency Department on the above date and was hospitalized for further evaluation of their emergent condition. Critical Care patient: Yes Total Critical Care Time (in minutes): 38 Critical Care Statement: The care of this patient involved high complexity decision making to prevent further life threatening deterioration of the patient 's condition and/or to evaluate & treat vital organ system(s) failure or risk of failure. - Discharge Referral Referred to [facility] Med P.C.: No
[2018-04-18 16:41] VITALS: BP 110/61; PULSE 75; TEMP 98
--- NOTE | 2018-04-18 20:15 | PN ---
Teaching Attending Note Name of Resident: Mesfin Santacruz ATTENDING PHYSICIAN STATEMENT I saw and evaluated the patient. I reviewed the resident's note and discussed the case with the resident. I agree with the resident's findings and plan as documented. SUBJECTIVE: Feels better. No further BRBPR. No abdominal pain/nausea/vomiting/ melena/hematemesis. No chest pain/palpitations/SOB. OBJECTIVE: Afebrile, Hemodynamically Stable. Last Vital Signs Temp Pulse Resp BP Pulse Ox 98 F 75 20 110/61 100 04/18/18 16:00 04/18/18 16:00 04/18/18 16:00 04/18/18 16:00 04/18/18 08:59 HEENT - Atraumatic, Normocephalic. Heart - S1, S2, RRR Lungs - clear to auscultation. Abdomen - soft, mild generalized tenderness. Bowel Sounds normal. Extremities - no edema. No calf tenderness. Laboratory Results - last 24 hr 04/14/18 04/17/18 04/17/18 07:15 05:30 14:30 WBC RBC Hgb Hct MCV MCH MCHC RDW Plt Count MPV Absolute Neuts (auto) Neutrophils % Lymphocytes % Monocytes % Eosinophils % Basophils % Nucleated RBC % Sodium Potassium Chloride Carbon Dioxide Anion Gap BUN Creatinine Creat Clearance w eGFR POC Glucometer Random Glucose Hemoglobin A1c % 4.8 Calcium Iron 30 Total Bilirubin AST ALT Alkaline Phosphatase Total Protein Albumin Hep A IgM Ab Confirm Negative Hepatitis A Ab Total Positive H Hep Bs Antigen Negative Hep Bs Antibody Non reactive Hep B Core Total Ab Negative 04/18/18 04/18/18 04/18/18 05:30 05:30 16:46 WBC 5.8 RBC 2.89 L Hgb 9.3 L Hct 27.1 L MCV 93.6 MCH 32.1 MCHC 34.3 RDW 15.0 Plt Count 208 MPV 9.3 Absolute Neuts (auto) 3.8 Neutrophils % 65.0 Lymphocytes % 23.9 Monocytes % 7.4 Eosinophils % 2.7 Basophils % 1.0 Nucleated RBC % 0 Sodium 137 Potassium 3.8 Chloride 98 Carbon Dioxide 29 Anion Gap 11 BUN 21 H Creatinine 5.1 H Creat Clearance w eGFR 8.27 POC Glucometer 142 Random Glucose 89 Hemoglobin A1c % Calcium 8.4 L Iron Total Bilirubin 0.3 AST 21 ALT 17 Alkaline Phosphatase 119 H Total Protein 5.3 L Albumin 2.8 L Hep A IgM Ab Confirm Hepatitis A Ab Total Hep Bs Antigen Hep Bs Antibody Hep B Core Total Ab Discharge Medications Medication Instructions Recorded Gabapentin 100 mg PO HS 09/20/16 Pyridoxine HCl (Vitamin B6) 100 mg PO DAILY 09/27/17 [Vitamin B-6] Atorvastatin Ca [Lipitor] 40 mg PO DAILY 10/10/17 Carvedilol 12.5 mg PO BID #60 tablet 02/25/18 Amlodipine Besylate 5 mg PO DAILY 04/17/18 ASSESSMENT AND PLAN: 72 year old female with history of ESRD on HD, CAD s/p CABG, HTN, Chronic Diastolic HF, presented to ED with abdominal pain and BRBPR. No fever/chills/ nausea/vomiting. 1. Acute Blood Loss Anemia secondary to Lower GI bleed - bleeding noted in the cecum on CT A/P, POD 1 s/p Colonoscopy with clipping of bleeding vessel. H/H stable at 9.3/27.1 s/p 3 units PRBCs. Medically stable for discharge with outpatient CBC monitoring. Discussed with GI. 2. ESRD on HD - Nephrology following as out-patient on HD schedule. 3. Chronic Diastolic HF - Stable. Continue Coreg. 4. HTN - Continue Coreg, Norvasc. 5. Adrenal Adenoma - incidental finding, requires out-patient work-up. 6. Reported DM 2 - A1C 4.8 - should be removed from diagnosis list. Medically stable for discharge with PCP and Gastroenterology follow ups.
[2018-04-18] MEDS ORDERED: GABAPENTIN 100 MG CAPSULE (FP) PO SCH (22:00)
[2018-04-19] MEDS ORDERED: EPOETIN ALFA 2,000 UNIT/1 ML VIAL IVPUSH ONE (13:19)
== END 2018-04-18 17:42 | disposition home or self-care (01) | DRG 223 ==
LOC: JER 17:33 → JICU 04-14 02:52
PROVIDERS: ADMIT Internal Medicine
PROC: 0DL Gastrointestinal System, Occlusion (ICD-10-PCS; principal; 2018-04-14)
PROC: 5A1D70Z Performance of Urinary Filtration, Intermittent, Less than 6 Hours Per Day (ICD-10-PCS; 2018-04-14)
PROC: 5A1D70Z Performance of Urinary Filtration, Intermittent, Less than 6 Hours Per Day (ICD-10-PCS; 2018-04-17)
DX: K92.2 Gastrointestinal hemorrhage, unspecified (principal); D62 Acute posthemorrhagic anemia; I25.10 Atherosclerotic heart disease of native coronary artery without angina pectoris; I25.2 Old myocardial infarction; M54.5 Low back pain; E87.5 Hyperkalemia; D35.02 Benign neoplasm of left adrenal gland; R55 Syncope and collapse; I13.2 Hypertensive heart and chronic kidney disease with heart failure and with stage 5 chronic kidney disease, or end stage renal disease; K57.90 Diverticulosis of intestine, part unspecified, without perforation or abscess without bleeding; E11.22 Type 2 diabetes mellitus with diabetic chronic kidney disease; N18.6 End stage renal disease; K64.8 Other hemorrhoids; I50.32 Chronic diastolic (congestive) heart failure; Z99.2 Dependence on renal dialysis; Z86.73 Personal history of transient ischemic attack (TIA), and cerebral infarction without residual deficits
CPT/HCPCS: 36415; 36430; 36511; 36600; 71045-TC-FY; 74174-TC; 80048; 80053; 82375; 82550; 82728; 82803; 82962; 83036; 83050; 83540; 83605; 83690; 83735; 83880; 84100; 84484; 85025; 85027; 85610; 85730; 86704; 86706; 86708; 86803; 86850; 86900; 86901; 86922; 87340; 93005; 93010; 97116-GP; 97161-GP; 99282-25; J0131; J0885; J1756; J7030; P9038; P9058

== ENCOUNTER 2018-05-12 17:43 | Inpatient (IN) | payer OTHER ==
[2018-05-12 17:53] VITALS: BMI 32.7
--- NOTE | 2018-05-12 18:10 | PDOC ---
History of Present Illness - General Chief Complaint: Weakness Stated Complaint: RESPIRATORY DISTRESS,DIALYSIS Time Seen by Provider: 05/12/18 17:51 History Source: Patient Exam Limitations: No Limitations - History of Present Illness Initial Comments: 72 yo F wtih PMH ESRD on HD (/), CVA, CAD s/p CABG, ventral hernia, DM and CHF presented to the ER with weakness, dizziness, shortness of breath after dialysis this AM. Per son, he found her short of breath laying in bed after coming back from HD this morning. Patient endorses palpitation, n/v, dyspnea, and feeling very weak, barely able to speak. She also stated that she's been having bloody stool since discharge but small amount daily. She was recently hospitalized from 04/14 to 04/17 for lower GI bleed. CT was noted for bleeding in the cecum, likely AVM. HGB was as low as 7.1 and required 3 units PRBC during hospital course. In-house colonoscopy (04/17/18) showed diverticulosis and a visible vessel in the cecum with no obvious bleed, s/p endoclip. Denies fever, chills, chest pain, sensation loss, urinary or bowel sx. 05/12/18 18:47 Ddx include symptomatic anemia, ACS, infection. Will send CBCD, CMP, coag, CXR, EKG, blood culture. Patient doesn't make any urine so UA cannot be performed. Past History - Past Medical History Allergies/Adverse Reactions: Allergies Allergy/AdvReac Type Severity Reaction Status Date / Time No Known Allergies Allergy Verified 02/23/18 18:23 Home Medications: Ambulatory Orders Gabapentin 100 mg PO HS 09/20/16 Pyridoxine HCl (Vitamin B6) [Vitamin B-6] 100 mg PO DAILY 09/27/17 Atorvastatin Ca [Lipitor] 40 mg PO DAILY 10/10/17 Carvedilol 12.5 mg PO BID #60 tablet 02/25/18 Amlodipine Besylate 5 mg PO DAILY 04/17/18 Anemia: No Asthma: No Cardiac Disorders: Yes (CAD, CABG) CVA: Yes (CVA) COPD: No CHF: No Dementia: No Diabetes: Yes Dialysis: Yes (tues, th, sat) GI Disorders: Yes (HERNIA, small bowel resection) Disorders: No HTN: Yes Hypercholesterolemia: Yes Liver Disease: No Seizures: No Thyroid Disease: No - Surgical History Abdominal Surgery: No Appendectomy: No Cardiac Surgery: Yes (BYPASS) Cholecystectomy: No Lung Surgery: No Neurologic Surgery: No Orthopedic Surgery: No - Immunization History Td Vaccination: (UNKNOWN) Immunization Up to Date: Yes (FLU AND PNA) - Suicide/Smoking/Psychosocial Hx Smoking Status: No Smoking History: Never smoked Have you smoked in the past 12 months: No Number of Cigarettes Smoked Daily: 0 Cigars Per Day: 0 Information on smoking cessation initiated: No Hx Alcohol Use: No Drug/Substance Use Hx: No Substance Use Type: None Hx Substance Use Treatment: No Review of Systems - Review of Systems Able to Perform ROS?: Yes Is the patient limited Tunisian proficient: Yes Constitutional: Yes: Weakness. No: Chills, Fever Respiratory: Yes: Shortness of Breath. No: Cough Cardiac (ROS): Yes: Lightheadedness, Palpitations ABD/GI: Yes: Blood Streaked Bowels, Nausea. No: Vomiting Neurological: Yes: Headache, Weakness *Physical Exam - Vital Signs Last Vital Signs Temp Pulse Resp BP Pulse Ox 98.3 F 74 18 130/59 L 100 05/12/18 17:52 05/12/18 17:52 05/12/18 17:52 05/12/18 17:52 05/12/18 17:52 - Physical Exam General Appearance: Yes: Other (weak looking). No: Apparent Distress HEENT: positive: Pale Conjunctivae Respiratory/Chest: positive: Lungs Clear, Normal Breath Sounds Cardiovascular: positive: Regular Rhythm, Regular Rate, S1, S2, Systolic Murmur. negative: Edema Gastrointestinal/Abdominal: positive: Normal Bowel Sounds, Tender, Flat, Soft, Hernia Rectal Exam: positive: normal rectal tone. negative: melena Neurologic: positive: milk route deliverer II-XII NML intact
--- NOTE | 2018-05-12 18:42 | PDOC ---
Attending Attestation - HPI HPI: 05/12/18 19:30 The patient is a 72-year-old female with a past medical history significant for ESRD on HD (), CVA, CAD s/p CABG, ventral hernia, DM and CHF presents to the emergency department with weakness, dizziness and shortness of breath. The son reports after HD earlier today, and the patient was found to be short of breath lying on the bed. The patient reports associated symptoms of weakness to the extent that shes unable to speak, palpitations, nausea, vomiting, and dyspnea. The patient reports an additional concern of streak of blood in the stool since discharge from the hospital on the 18 of April. The patient states she was admitted to the hospital on the for GI bleed. CT was significant for bleeding in the cecum. During the stay, the patients hemoglobin was noted to be 7.1 and was given 3 units of PRBC. The patient was monitored in ICU. On the patient underwent colonoscopy which showed diverticulosis and a visible vessel in the cecum with no obvious bleed s/p endoclip. Allergies: NKA PCP: None reported - Physicial Exam PE: 05/12/18 21:10 Vitals: Triage Vital signs reviewed General Appearance: no acute distress, well nourished well developed, Cardiac: Regular rate and rhythm, no murmurs, no rubs, no gallops, Lungs: Clear to auscultation bilateral, good air movement bilaterally, Abdomen: Soft, nondistended, nontender to palpation Extremities: Full range of motion to all extremities, no cyanosis, clubbing, or edema Skin: Warm and dry, no rashes or lesions, no petechiae. - Medical Decision Making 05/12/18 19:30 Plan EKG: Lab: CBC, CMP, PT/INR, Trop, blood culture. Radiology: Chest X-ray: DATE OF SERVICE: 2018-05-12 18:58:10 EXAM: XRAY PORTABLE UPRIGHT VIEW CHEST FINDINGS: Sternotomy wires from previous CABG changes are noted. Cardiomegaly. Pulmonary vascularity is within normal limts. The mediastinum is intact without superior mediastinal widening or hilar contour abnormality. The lungs are clear of consolidation, effusion, pneumothorax.. Osseous structures unremarkable. IMPRESSION:No acute chest findings. THIS DOCUMENT HAS BEEN ELECTRONICALLY SIGNED Hannah Rosa D.O. 05/12/2018 19:13 EST Micro blog sent for Obs. 05/12/18 19:31 Documentation prepared by Sabrina Lieberman, acting as medical videographer for Haroldo Barnett MD. <Sabrina Lieberman - Last Filed: 05/12/18 21:10> - Resident Resident Name: Laron Ponce - ED Attending Attestation I have performed the following: I have examined & evaluated the patient, The case was reviewed & discussed with the resident, I agree w/resident's findings & plan, Exceptions are as noted - Medical Decision Making The patient is a 72-year-old female with a past medical history significant for ESRD on HD (//), CVA, CAD s/p CABG, ventral hernia, DM and CHF presents to the emergency department with weakness, dizziness and shortness of breath. Differential diagnosis includes anemia, early infection, volume shift status post dialysis Hemoglobin on laboratory analysis 7.9 this is within her baseline Given persistence of dyspnea we'll observe overnight to trend CBCs transfuse if necessary no indication for acute blood transfusion at this time <Haroldo Barnett - Last Filed: 05/12/18 23:08> Heart Score/ECG Review - ECG Impressions Comment:: 05/12/18 23:07 EKG performed at 2045 demonstrates normal sinus rhythm no ST elevations or T- wave inversions. Interpreted by me. <Haroldo Barnett - Last Filed: 05/12/18 23:08>
--- NOTE | 2018-05-12 19:18 | PDOC ---
*Physical Exam - Vital Signs Last Vital Signs Temp Pulse Resp BP Pulse Ox 98.3 F 74 18 130/59 L 100 05/12/18 17:52 05/12/18 17:52 05/12/18 17:52 05/12/18 17:52 05/12/18 17:52 ED Treatment Course - LABORATORY CBC & Chemistry Diagram: 05/12/18 19:54 05/12/18 19:54 - ADDITIONAL ORDERS Additional order review: Laboratory Results 05/12/18 18:20 Stool Occult Blood Negative Medical Decision Making - Medical Decision Making 05/12/18 19:[address] Ponce. Patient is 72F with history of ESRD on HD (//) , CVA, CAD s/p CABG, ventral hernia, DM and CHF, recent GI bleed requiring transfusion here today with weakness, shortness of breath and dizziness. Differential as per prior provider note, is generally broad at this time. Likely will requier admission given complex medical history. Stool for occult blood negative US IV placed in R arm. Labs drawn. 05/12/18 21:18 CBC 7.9, on bottom end of patient's baseline. CMP reassuring CXR shows no acute infiltrate, similar to prior. EKG shows NSR with rate of 70. No st elevations/depressiosn. Normal axis. Normal intervals. No significant t wave abnormalities. Q waves in III. Case d/w hospitalist resident, accepted to Dr Sales's service for monitoring CBC given history of gi bleed and anemia. *DC/Admit/Observation/Transfer Diagnosis at time of Disposition: Shortness of breath - Discharge Dispostion Condition at time of disposition: Stable Decision to Admit order: Yes - Referrals - Patient Instructions - Post Discharge Activity
[2018-05-12 20:08] LABS: EOS % 1.6 % (0-4.5); HEMOGLOBIN 7.9 GM/dL (10.7-15.3); LYMPH % 19.4 % (8-40); MCH 31.4 pg (25.7-33.7); MCHC 32.8 g/dl (32.0-36.0); MEAN CELL VOLUME 95.7 fl (80-96); MEAN PLT VOLUME 8.9 fl (7.5-11.1); PLATELET COUNT 252 K/MM3 (134-434); RDW 15.6 % (11.6-15.6)
[2018-05-12 20:20] LABS: INR 0.96 (0.83-1.09); PROTHROMBIN TIME (PATIENT) 11.3 SEC (9.7-13.0)
[2018-05-12 20:40] LABS: ALBUMIN 3.5 g/dl (3.4-5.0); ALK PHOS 241 U/L (45-117); ANION GAP 10 MMOL/L (8-16); BILIRUBIN,TOTAL 0.2 mg/dL (0.2-1); BLOOD UREA NITROGEN 36 mg/dL (7-18); CALCIUM 8.2 mg/dL (8.5-10.1); CHLORIDE 99 mmol/L (98-107); CO2 26 mmol/L (21-32); CREATININE 4.4 mg/dL (0.55-1.3); GLUCOSE,RANDOM 73 mg/dL (74-106); POTASSIUM 4.5 mmol/L (3.5-5.1); SGOT/AST 11 U/L (15-37); SGPT/ALT 19 U/L (13-61); SODIUM 135 mmol/L (136-145); TOT PROT 6.8 g/dl (6.4-8.2)
[2018-05-12] MEDS ORDERED: OXYMETAZOLINE 0.05% NASAL SOLUTION 15 ML BOTTLE NS ONE (21:15)
--- NOTE | 2018-05-12 22:06 | HP ---
CHIEF COMPLAINT: dyspnea and palpitations PCP: HISTORY OF PRESENT ILLNESS: 72 y/o female with PMH of ESRD pn HD (//) CAD (s/p CABG) , CHF, CVA, ventral hernia presents to the ED with worsening palpitations/dizziness and dyspnea in addition to some nausea after dialysis. She was feeling very weak and fatigued. She also endorses having bloody bowel movements, mainly when she has been wiping-. of note she was here was 04/14-04/17 where she suffered from a lower GI bleed- colonoscopy was done on 04/17 where it showed some diverticulosis and visible vessel in the cecum with no obvious bleed and it was endoclipped at that time. she denies any fevers/chills or any recent illnesses nor any recent travel. ER course was notable for: (1)BP was 116/59 (2)Hgb was 7.9 (baseline seems to around 8-9) (3)rectal exam performed by ER resident; fecal occult blood was negative Recent Travel: denies PAST MEDICAL HISTORY: see above PAST SURGICAL HISTORY: s/p CABG, small bowel resection Social History: Smoking:denies Alcohol:denies Drugs: denies lives with family; uses a walker to help ambulate at times Family History: Allergies No Known Allergies Allergy (Verified 02/23/18 18:23) HOME MEDICATIONS: Home Medications Medication Instructions Recorded Gabapentin 100 mg PO HS 09/20/16 Pyridoxine HCl (Vitamin B6) 100 mg PO DAILY 09/27/17 [Vitamin B-6] Atorvastatin Ca [Lipitor] 40 mg PO DAILY 10/10/17 Carvedilol 12.5 mg PO BID #60 tablet 02/25/18 Amlodipine Besylate 5 mg PO DAILY 04/17/18 REVIEW OF SYSTEMS CONSTITUTIONAL: Absent: fever, chills, diaphoresis, generalized weakness, malaise, loss of appetite, weight change HEENT: Absent: rhinorrhea, nasal congestion, throat pain, throat swelling, difficulty swallowing, mouth swelling, ear pain, eye pain, visual changes CARDIOVASCULAR: Present: palpitations, lightheadedness Absent: chest pain, syncope, irregular heart rate, , peripheral edema RESPIRATORY: Absent: cough, shortness of breath, dyspnea with exertion, orthopnea, wheezing, stridor, hemoptysis GASTROINTESTINAL: Absent: abdominal pain, abdominal distension, nausea, vomiting, diarrhea, constipation, melena, hematochezia GENITOURINARY: Absent: dysuria, frequency, urgency, hesitancy, hematuria, flank pain, genital pain MUSCULOSKELETAL: Absent: myalgia, arthralgia, joint swelling, back pain, neck pain SKIN: Absent: rash, itching, pallor HEMATOLOGIC/IMMUNOLOGIC: Absent: easy bleeding, easy bruising, lymphadenopathy, frequent infections ENDOCRINE: Absent: unexplained weight gain, unexplained weight loss, heat intolerance, cold intolerance NEUROLOGIC: Absent: headache, focal weakness or paresthesias, dizziness, unsteady gait, seizure, mental status changes, bladder or bowel incontinence PSYCHIATRIC: Absent: anxiety, depression, suicidal or homicidal ideation, hallucinations. PHYSICAL EXAMINATION Vital Signs - 24 hr 05/12/18 05/12/18 17:52 20:33 Temperature 98.3 F Pulse Rate 74 Pulse Rate [ 71 Apical] Respiratory 18 20 Rate Blood Pressure 130/59 L Blood Pressure 116/59 L [Left Arm] O2 Sat by Pulse 100 95 Oximetry (%) GENERAL: Awake, alert, and fully oriented, in no acute distress. EYES: PEERLA: EOMI; no scleral icterus. HEENT: dry mucous membranes NECK:no JVD; no lymphadenopathy LUNGS:CTA B/L; no rales, rhonchi or wheezing. HEART: Regular rate and rhythm, normal S1 and S2 without murmur, rub or gallop. ABDOMEN: Soft, nontender, not distended, normoactive bowel sounds, no guarding, no rebound, no masses. No hepatomegaly or splenomegaly. MUSCULOSKELETAL: Normal range of motion at all joints. No bony deformities or tenderness. No CVA tenderness. EXTREMITIES: warm; well-perfused; no clubbing/cyanosis or edema NEUROLOGICAL: Cranial nerves II-XII intact. Normal speech. Normal gait. PSYCHIATRIC: Cooperative. Good eye contact. Appropriate mood and affect. SKIN: Warm, dry, normal turgor, no rashes or lesions noted, normal capillary refill. Laboratory Results - last 24 hr 05/12/18 05/12/18 05/12/18 18:20 19:54 19:54 WBC 7.0 RBC 2.50 L Hgb 7.9 L Hct 24.0 L MCV 95.7 MCH 31.4 MCHC 32.8 RDW 15.6 Plt Count 252 D MPV 8.9 Absolute Neuts (auto) 5.1 Neutrophils % 72.0 Lymphocytes % 19.4 Monocytes % 6.0 Eosinophils % 1.6 Basophils % 1.0 Nucleated RBC % 0 PT with INR 11.30 INR 0.96 Sodium Potassium Chloride Carbon Dioxide Anion Gap BUN Creatinine Creat Clearance w eGFR Random Glucose Lactic Acid Calcium Total Bilirubin AST ALT Alkaline Phosphatase Troponin I Total Protein Albumin Stool Occult Blood Negative Blood Type Antibody Screen 05/12/18 05/12/18 05/12/18 19:54 19:54 19:54 WBC RBC Hgb Hct MCV MCH MCHC RDW Plt Count MPV Absolute Neuts (auto) Neutrophils % Lymphocytes % Monocytes % Eosinophils % Basophils % Nucleated RBC % PT with INR INR Sodium 135 L Potassium 4.5 Chloride 99 Carbon Dioxide 26 Anion Gap 10 BUN 36 H Creatinine 4.4 H Creat Clearance w eGFR 9.80 Random Glucose 73 L Lactic Acid 0.6 Calcium 8.2 L Total Bilirubin 0.2 AST 11 L ALT 19 Alkaline Phosphatase 241 H Troponin I < 0.02 Total Protein 6.8 Albumin 3.5 Stool Occult Blood Blood Type O POSITIVE Antibody Screen Negative ASSESSMENT/PLAN: 72 y/o female with PMH of CAD (s/p CABG), ESRD (on HD /), DM, CHF, CVA, ventral hernia presented to the ED with complaints of palpitations/dizziness/ dyspnea after HD in addition to bloody bowel movements #Dizziness/palpitations likely 2/2 anemia as patient is below her normal Hgb trend- -will transfuse 1 unit prbcs -f/u post transfusion CBC -maintain Hgb >8 -monitor hemodynamics -f/u iron studies #Bloody bowel movements -fecal occult negative -patient states the blood is mainly when she wipes -s/p colonoscopy 04/17 w/ endoclip- increase risk for rebleed as per GI last time -reconsult GI #ESRD on HD /; had HD today -nephro consulted -strict i's and O's/ daily weights #HTN c/w amlodipine holding carvedilol for now given soft pressures monitor hemodynamics #DM ISS BGMS ACHS #HLD c/w lipitor 40 daily DVT PPX: SCDS in light of bloody BM's F/E/N not on fluids monitor electrolytes clears for now Problem List - Problem (1) ESRD (end stage renal disease) Code(s): N18.6 - END STAGE RENAL DISEASE (2) HTN (hypertension) Code(s): I10 - ESSENTIAL (PRIMARY) HYPERTENSION (3) Diabetes Code(s): E11.9 - TYPE 2 DIABETES MELLITUS WITHOUT COMPLICATIONS (4) SOB (shortness of breath) Code(s): R06.02 - SHORTNESS OF BREATH Visit type - Emergency Visit Emergency Visit: Yes ED Registration Date: 05/12/18 Care time: The patient presented to the Emergency Department on the above date and was hospitalized for further evaluation of their emergent condition. - New Patient This patient is new to me today: Yes Date on this admission: 05/12/18 - Critical Care Critical Care patient: No
--- NOTE | 2018-05-12 22:15 | PN ---
Teaching Attending Note Name of Resident: Sherri Gray ATTENDING PHYSICIAN STATEMENT I saw and evaluated the patient. I reviewed the resident's note and discussed the case with the resident. I agree with the resident's findings and plan as documented. SUBJECTIVE: This is a 72 year old woman with a history of ESRD, CAD, CABG, hyperlipidemia, chronic diastolic heart failure, anemia, CVA, diverticulosis who comes to the ED complaining of SOB, dizziness, and palpitations that started after dialysis today. She feels weak and tired. She also reports seeing blood when wiping after bowel movements. She had been admitted here 04/14-04/18 with lower GI bleeding. Colonoscopy revealed moderate diverticulosis of sigmoid and descending colon, a solitary diverticulum with a visible non-bleeding vessel in the cecum, and small internal hemorrhoids. The cecal diverticulum was thought to be the source of the bleeding and an endoclip was applied. OBJECTIVE: Vital Signs Period Temp Pulse Resp BP Sys/Rodriguez Pulse Ox Last 24 Hr 98.3 F 71-74 18-20 116-130/59-59 95-100 HEART: S1S2, RRR LUNGS: Clear ABDOMEN: Obese, soft, non-tender, non-distended, normal BS, (+) non-tender non- reducible ventral hernia EXTREMITIES: No edema Laboratory Tests 05/12/18 05/12/18 05/12/18 18:20 19:54 19:54 WBC 7.0 RBC 2.50 L Hgb 7.9 L Hct 24.0 L MCV 95.7 MCH 31.4 MCHC 32.8 RDW 15.6 Plt Count 252 D MPV 8.9 Absolute Neuts (auto) 5.1 Neutrophils % 72.0 Lymphocytes % 19.4 Monocytes % 6.0 Eosinophils % 1.6 Basophils % 1.0 Nucleated RBC % 0 PT with INR 11.30 INR 0.96 Sodium Potassium Chloride Carbon Dioxide Anion Gap BUN Creatinine Creat Clearance w eGFR Random Glucose Lactic Acid Calcium Total Bilirubin AST ALT Alkaline Phosphatase Troponin I Total Protein Albumin Stool Occult Blood Negative Blood Type Antibody Screen 05/12/18 05/12/18 05/12/18 19:54 19:54 19:54 WBC RBC Hgb Hct MCV MCH MCHC RDW Plt Count MPV Absolute Neuts (auto) Neutrophils % Lymphocytes % Monocytes % Eosinophils % Basophils % Nucleated RBC % PT with INR INR Sodium 135 L Potassium 4.5 Chloride 99 Carbon Dioxide 26 Anion Gap 10 BUN 36 H Creatinine 4.4 H Creat Clearance w eGFR 9.80 Random Glucose 73 L Lactic Acid 0.6 Calcium 8.2 L Total Bilirubin 0.2 AST 11 L ALT 19 Alkaline Phosphatase 241 H Troponin I < 0.02 Total Protein 6.8 Albumin 3.5 Stool Occult Blood Blood Type O POSITIVE Antibody Screen Negative Home Medications Medication Instructions Recorded Gabapentin 100 mg PO HS 09/20/16 Pyridoxine HCl (Vitamin B6) 100 mg PO DAILY 09/27/17 [Vitamin B-6] Atorvastatin Ca [Lipitor] 40 mg PO DAILY 10/10/17 Carvedilol 12.5 mg PO BID #60 tablet 02/25/18 Amlodipine Besylate 5 mg PO DAILY 04/17/18 ASSESSMENT AND PLAN: This is a 72 year old woman with a history of ESRD, CAD, CABG, HTN, hyperlipidemia, chronic diastolic heart failure, anemia, CVA, diverticulosis with recent bleed who presented to the ED with SOB, dizziness, and palpitations. 1. Symptomatic anemia secondary to acute vs chronic GI blood loss and ESRD - Hgb 7.9, was 9.3 on 04/18/18 - Stool is negative for occult blood - Patient reports seeing blood when she wipes after bowel movements - Underwent colonoscopy and clipping of visible vessel in cecal diverticulum on 04/17/18 - Noted to have small internal hemorrhoids on colonoscopy 04/17/18 - Transfuse 1 unit PRBCs to keep Hgb >8.0 - GI evaluation 2. ESRD - Nephrology consult for HD 3. CAD, history of CABG - Continue Coreg, Lipitor - Aspirin was discontinued at last admission secondary to GI bleed 4. HTN - Continue Norvasc, Coreg 5. Hyperlipidemia - Continue Lipitor 6. Chronic diastolic heart failure - Stable 7. History of CVA - Continue Lipitor - Aspirin was discontinued at last admission secondary to GI bleed
[2018-05-12] MEDS: INSULIN SLIDING SCALE (NOVOLOG) 1 VIAL SQ SCH (22:33)
[2018-05-12] MEDS ORDERED: ATORVASTATIN CA 10 MG TABLET (FP) ONE (22:37)
[2018-05-13 06:19] LABS: BASO % 0.6 % (0-2.0); EOS % 1.8 % (0-4.5); HEMATOCRIT 29.1 % (32.4-45.2); HEMOGLOBIN 9.8 GM/dL (10.7-15.3); LYMPH % 21.3 % (8-40); MCHC 33.8 g/dl (32.0-36.0); MEAN CELL VOLUME 94.7 fl (80-96); MEAN PLT VOLUME 9.1 fl (7.5-11.1); MONO % 4.7 % (3.8-10.2); NEUT % 71.6 % (42.8-82.8); PLATELET COUNT 272 K/MM3 (134-434); RBC 3.08 M/mm3 (3.60-5.2); RDW 15.5 % (11.6-15.6); WHITE BLOOD COUNT 7.6 K/mm3 (4.0-10.0)
[2018-05-13] MEDS: INSULIN SLIDING SCALE (NOVOLOG) 1 VIAL SQ SCH ×4 (06:36→21:41)
[2018-05-13 06:46] LABS: ALBUMIN 3.6 g/dl (3.4-5.0); ALK PHOS 261 U/L (45-117); ANION GAP 10 MMOL/L (8-16); BILIRUBIN,TOTAL 0.3 mg/dL (0.2-1); BLOOD UREA NITROGEN 45 mg/dL (7-18); CALCIUM 7.5 mg/dL (8.5-10.1); CHLORIDE 98 mmol/L (98-107); CO2 26 mmol/L (21-32); CREATININE 5.4 mg/dL (0.55-1.3); GLUCOSE,RANDOM 93 mg/dL (74-106); MAGNESIUM 2.2 mg/dL (1.8-2.4); PHOSPHOROUS 3.5 mg/dL (2.5-4.9); POTASSIUM 5.1 mmol/L (3.5-5.1); SGOT/AST 18 U/L (15-37); SGPT/ALT 18 U/L (13-61); SODIUM 134 mmol/L (136-145)
--- NOTE | 2018-05-13 08:32 | CON.GI ---
Consult Consult Specialty:: GI Referred by:: Hospitalist Service Reason for Consultation:: Rectal bleeding - History of Present Illness Chief Complaint: Weakness History of Present Illness: Ms. Posey's nurse aided in interpretation as she speaks Icelandic. 72 y.o. F with ESRD on dialysis. Recently admitted to [facility] 04/24 for evaluation of rectal bleeding. CTA at that time positive for cecal bleeding. Follow-up colonoscopy 04/17/18 revealed sigmoid / descending colon diverticulosis, no blood, no AVM's, a solitary diverticulum at the base of the cecum with what appeared to be a non bleeding visible vessel. Endoclip was placed. She is now admitted for weakness. She describes occasionally noticing blood on the toilet paper after a bowel movement. She describes her bowel movements as "dry" with straining. She complains of frequent nausea and diminished appetite. Noted guaiac negative from stool specimen sent from ER. Pt gives history of past abdominal surgery but she does not know why, but states part of her intestines were removed. Was transfused 1 U PRBC. [facility] Hgb ranges from 8-10 chronically. Denies melena. 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 Cardio/Vascular: Yes: CAD, CHF, HTN, VT, Hyperlipdemia Gastrointestinal: Yes: Diverticulosis Renal/: Yes: Renal Failure, Hemodialysis Psych: Yes: Anxiety Musculoskeletal: Yes: Chronic low back pain Endocrine: Yes: Diabetes Mellitus - Past Surgical History Past Surgical History: Yes: AV Fistula/Graft, CABG Additional Surgical History: Unknown abdominal surgery - Alcohol/Substance Use Hx Alcohol Use: No History of Substance Use: reports: None - Smoking History Smoking history: Never smoked Have you smoked in the past 12 months: No Aproximately how many cigarettes per day: 0 - Social History Usual Living Arrangement: With Child ADL: Independent History of Recent Travel: No Home Medications - Allergies Allergies/Adverse Reactions: Allergies Allergy/AdvReac Type Severity Reaction Status Date / Time No Known Allergies Allergy Verified 02/23/18 18:23 - Home Medications Home Medications: Ambulatory Orders Gabapentin 100 mg PO HS 09/20/16 Pyridoxine HCl (Vitamin B6) [Vitamin B-6] 100 mg PO DAILY 09/27/17 Atorvastatin Ca [Lipitor] 40 mg PO DAILY 10/10/17 Carvedilol 12.5 mg PO BID #60 tablet 02/25/18 Amlodipine Besylate 5 mg PO DAILY 04/17/18 Family Disease History - Family Disease History Other Family History: No family history of colorectal cancer Review of Systems - Review of Systems Constitutional: reports: Weakness Cardiovascular: denies: Chest Pain Respiratory: denies: Cough, SOB Gastrointestinal: reports: Constipation, Nausea. denies: Abdominal Pain, Vomiting Physical Exam-GI Vital Signs: Vital Signs Temperature 98.4 F 05/13/18 1015 Pulse Rate 72 05/13/18 1015 Respiratory Rate 18 05/13/18 08:01 Blood Pressure 142/66 05/13/18 08:01 O2 Sat by Pulse Oximetry (%) 100 RA 05/13/18 08:01 Constitutional: Yes: Calm Eyes: No: Sclera Icterus Cardiovascular: Yes: Regular Rate and Rhythm, Other (Faint sternotomy scar). No : Murmur Respiratory: Yes: CTA Bilaterally Gastrointestinal Inspection: Yes: Hernia (Ventral hernia left paramedian abdomen. Tender upon attempt at), Scars (Midline vertical abdominal scar). No: Distention ...Auscultate: Yes: Normoactive Bowel Sounds ...Palpate: Yes: Soft ...Percussion: No: Tympanitic ...Rectal Exam: Yes: Other (Mall Manager present: light brown formed stool in the rectal vault, guaiac negative) Extremities: Yes: Other (RUE AV Fistula) Edema: No (No LE edema) Neurological: Yes: Alert Labs: CBC, BMP 05/13/18 05:30 05/13/18 05:30 INR, PTT INR 0.96 (0.83-1.09) 05/12/18 19:54 Imaging - Results Cat Scan: Image Reviewed (from prior admission: fat filled ventral hernia) Problem List - Problems (1) Rectal bleed Assessment/Plan: described as occasional bright blood on toilet paper after strained BM. Does not sound like recurrent diverticular bleeding, more like constipation accompanied by internal hemorrhoidal irritation. No overt bleeding while admitted and guaiac negative on exam. Advise: MiraLAX 17g daily Monitor for significant overt bleeding. Otherwsie no plan for colonoscopy at this time. Code(s): K62.5 - HEMORRHAGE OF ANUS AND RECTUM (2) Decreased appetite Assessment/Plan: With nausea, worsening of baseline anemia. Advised evaluation of upper GI tract. Start with UGIS tomorrow followed by possible EGD Monday. Discussed potential risks of the procedure like but not limited to bleeding perforation requiring surgery to repair and sedation medication effects all of which could be potentially life threatening. She has agreed to the procedure. Protonix 20mg once daily for now Advance diet Code(s): R63.0 - ANOREXIA
[2018-05-13] MEDS: CARVEDILOL 12.5 MG TABLET (FP) PO SCH ×2 (10:21→21:38)
[2018-05-13] MEDS: amLODIPine BESYLATE 5 MG TABLET (FP) PO SCH (10:21)
[2018-05-13] MEDS ORDERED: PANTOPRAZOLE 40 MG TABLET (FP) ONE (11:00)
[2018-05-13] MEDS: POLYETHYLENE GLYCOL 3350 119 GM BTL PO SCH (11:04)
[2018-05-13] MEDS: PANTOPRAZOLE 20 MG TABLET (FP) PO SCH (11:05)
--- NOTE | 2018-05-13 11:33 | CON.NEP ---
Consult Consult Specialty:: Nephrology Referred by:: Dr Sales Reason for Consultation:: ESRD - History of Present Illness Chief Complaint: Fatigue with dyhspnea on exertion and palpitations History of Present Illness: 72 y/o female with PMH of ESRD o HD (//) followed by Dr Moffett, CAD (s/p CABG) , CHF, CVA, ventral hernia presents to the ED with worsening palpitations/ dizziness and dyspnea in addition to some nausea after dialysis and noted to have a lower than usual Hgb. Pt was found to have a low hgb with initial stool for OB that was negative Pt apparently reported some blood on tiisue paper after wiping and on a recent admission was found to have diverticulosis and required clipping of a cecal vessel. Seen by GI and since pt has some nausea an UGIS is planned for tomorrow. 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 Cardio/Vascular: Yes: CAD, CHF, HTN, [place], Hyperlipdemia Gastrointestinal: Yes: Diverticulosis Renal/: Yes: Renal Failure, Hemodialysis Psych: Yes: Anxiety Musculoskeletal: Yes: Chronic low back pain Endocrine: Yes: Diabetes Mellitus - Past Surgical History Past Surgical History: Yes: AV Fistula/Graft, CABG Additional Surgical History: Unknown abdominal surgery - Alcohol/Substance Use Hx Alcohol Use: No History of Substance Use: reports: None - Smoking History Smoking history: Never smoked Have you smoked in the past 12 months: No Aproximately how many cigarettes per day: 0 - Social History Usual Living Arrangement: With Child ADL: Independent History of Recent Travel: No Home Medications - Allergies Allergies/Adverse Reactions: Allergies Allergy/AdvReac Type Severity Reaction Status Date / Time No Known Allergies Allergy Verified 02/23/18 18:23 - Home Medications Home Medications: Ambulatory Orders Gabapentin 100 mg PO HS 09/20/16 Pyridoxine HCl (Vitamin B6) [Vitamin B-6] 100 mg PO DAILY 09/27/17 Atorvastatin Ca [Lipitor] 40 mg PO DAILY 10/10/17 Carvedilol 12.5 mg PO BID #60 tablet 02/25/18 Amlodipine Besylate 5 mg PO DAILY 04/17/18 Family Disease History - Family Disease History Other Family History: No family history of colorectal cancer Nephrology Consult - Height Height: 5 ft - Weight Weight: 167 lb 8.821 oz - BMI Body Mass Index (BMI): 32.7 - Lab Results CBC,BMP: CBC, BMP 05/13/18 05:30 05/13/18 05:30 Laboratory Tests 05/12/18 05/12/18 05/13/18 18:20 19:54 05:30 Hgb 7.9 L Calcium 7.5 L Phosphorus 3.5 Magnesium 2.2 Total Bilirubin 0.3 AST 18 ALT 18 Alkaline Phosphatase 261 H Total Protein 7.0 Albumin 3.6 Stool Occult Blood Negative Anion Gap: Anion Gap Anion Gap 10 MMOL/L (8-16) 05/13/18 05:30 - Imaging Chest X-ray: Report Reviewed EKG: Image Reviewed - Physical Examination Vital Signs: Vital Signs Temperature 98.4 F 05/13/18 08:01 Pulse Rate 66 05/13/18 08:01 Respiratory Rate 18 05/13/18 08:01 Blood Pressure 128/67 05/13/18 08:01 O2 Sat by Pulse Oximetry (%) 100 05/13/18 08:01 Constitutional: Yes: No Distress Cardiovascular: Yes: S1, S2. No: JVD Respiratory: Yes: CTA Bilaterally Gastrointestinal: Yes: Normal Bowel Sounds. No: Tenderness, Rebound Renal/: No: Bladder Distention Access for Hemodialysis: AV Fistula Edema: No Neurological: Yes: Other (Alert and cooperative) Assessment/Plan Impression Symptomatic anemia requiring PRBCs and negative stool for guaiac X1 Dyspnea on exertion with palpitation but no chest pain prior to admission and which coujld have been precipitated by the anemia-If these symptoms persist to exclude cardiac etiology given her PMH of CAD, CHF, S/P CABG DM HTN ESRD HLD Plan PPI and GI work up Obtain results of pt's last iron levels from her usual HD unit and to add IV iron as indicated and adjust her AVEL- Aranesp, Epogen etc Next HD 05/15 Renal Diet No BP or IV in the RUE Cardiac w/u dyspnea on exertion persists Thank You Dr Brock
--- NOTE | 2018-05-13 13:09 | PN ---
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 reports blood with wiping only when she has BMs. No abd pain. no WHALEN . Objective: Vital Signs: Last Vital Signs Temp Pulse Resp BP Pulse Ox 98.4 F 66 18 128/67 100 05/13/18 08:01 05/13/18 08:01 05/13/18 08:01 05/13/18 08:01 05/13/18 08:01 Laboratory Results - last 24 hr 05/12/18 05/12/18 05/12/18 18:20 19:54 19:54 WBC 7.0 RBC 2.50 L Hgb 7.9 L Hct 24.0 L MCV 95.7 MCH 31.4 MCHC 32.8 RDW 15.6 Plt Count 252 D MPV 8.9 Absolute Neuts (auto) 5.1 Neutrophils % 72.0 Lymphocytes % 19.4 Monocytes % 6.0 Eosinophils % 1.6 Basophils % 1.0 Nucleated RBC % 0 PT with INR 11.30 INR 0.96 Sodium Potassium Chloride Carbon Dioxide Anion Gap BUN Creatinine Creat Clearance w eGFR POC Glucometer Random Glucose Lactic Acid Calcium Phosphorus Magnesium Total Bilirubin AST ALT Alkaline Phosphatase Troponin I Total Protein Albumin Stool Occult Blood Negative Blood Type Antibody Screen Crossmatch 05/12/18 05/12/18 05/12/18 19:54 19:54 19:54 WBC RBC Hgb Hct MCV MCH MCHC RDW Plt Count MPV Absolute Neuts (auto) Neutrophils % Lymphocytes % Monocytes % Eosinophils % Basophils % Nucleated RBC % PT with INR INR Sodium 135 L Potassium 4.5 Chloride 99 Carbon Dioxide 26 Anion Gap 10 BUN 36 H Creatinine 4.4 H Creat Clearance w eGFR 9.80 POC Glucometer Random Glucose 73 L Lactic Acid 0.6 Calcium 8.2 L Phosphorus Magnesium Total Bilirubin 0.2 AST 11 L ALT 19 Alkaline Phosphatase 241 H Troponin I < 0.02 Total Protein 6.8 Albumin 3.5 Stool Occult Blood Blood Type O POSITIVE Antibody Screen Negative Crossmatch See Detail 05/12/18 05/12/18 05/13/18 22:31 23:47 05:30 WBC 7.6 RBC 3.08 L Hgb 9.8 L Hct 29.1 L D MCV 94.7 MCH 32.0 MCHC 33.8 RDW 15.5 Plt Count 272 MPV 9.1 Absolute Neuts (auto) 5.4 Neutrophils % 71.6 Lymphocytes % 21.3 Monocytes % 4.7 Eosinophils % 1.8 Basophils % 0.6 Nucleated RBC % 0 PT with INR INR Sodium Potassium Chloride Carbon Dioxide Anion Gap BUN Creatinine Creat Clearance w eGFR POC Glucometer 87 Random Glucose Lactic Acid Calcium Phosphorus Magnesium Total Bilirubin AST ALT Alkaline Phosphatase Troponin I Total Protein Albumin Stool Occult Blood Blood Type Cancelled Antibody Screen Cancelled Crossmatch See Detail 05/13/18 05/13/18 05/13/18 05:30 06:15 10:05 WBC RBC Hgb Hct MCV MCH MCHC RDW Plt Count MPV Absolute Neuts (auto) Neutrophils % Lymphocytes % Monocytes % Eosinophils % Basophils % Nucleated RBC % PT with INR INR Sodium 134 L Potassium 5.1 Chloride 98 Carbon Dioxide 26 Anion Gap 10 BUN 45 H Creatinine 5.4 H Creat Clearance w eGFR 7.74 POC Glucometer 94 123 Random Glucose 93 Lactic Acid Calcium 7.5 L Phosphorus 3.5 Magnesium 2.2 Total Bilirubin 0.3 AST 18 ALT 18 Alkaline Phosphatase 261 H Troponin I Total Protein 7.0 Albumin 3.6 Stool Occult Blood Blood Type Antibody Screen Crossmatch Physical Exam: NAD , awake CV: RRR, no MRG lungs: CTAB Ext : no edema Abd:soft, NT, ND , NL BS. rectal: hard stool in rectal vault, no hemorrhoids, no masses. guaiac Neg Assessment/Plan: 72 y/o lady with h/o recent lower GI bleed , ESRD, CAD, CABG, hyperlipidemia, chronic diastolic heart failure, anemia, CVA, diverticulosis who presented with SOB and rectal bleed , she was found ot have worsening of her chronic anemia. 1- Symptomatic anemia: worsening of chronic normocytic anemia. rectal exam indicates hard stool in rectum with Neg blood Colonoscopy from last admisison reviewed. - seen by GI - bowel regimen - GI series and possible EGD - to obtain iron studies for m HD center - pt continue to use her aspirin despite instructions to stop it last admission. 2- SOB, resolved after blood transfusion. she looks euvolemic. cont fluid removal with HD per schedule 3- HTN: cont ocerg and norvasc 4- ESRD: HS per schedule . TTS 5- DVT PX : SCDs for now Visit type - Emergency Visit Emergency Visit: Yes ED Registration Date: 05/12/18 Care time: The patient presented to the Emergency Department on the above date and was hospitalized for further evaluation of their emergent condition. - New Patient This patient is new to me today: Yes Date on this admission: 05/13/18 - Critical Care Critical Care patient: No
--- NOTE | 2018-05-13 18:05 | EKG ---
Test Reason : Blood Pressure : / mmHG Vent. Rate : 070 BPM Atrial Rate : 070 BPM P-R Int : 200 ms QRS Dur : 088 ms QT Int : 442 ms P-R-T Axes : 043 010 113 degrees QTc Int : 477 ms POOR DATA QUALITY, INTERPRETATION MAY BE ADVERSELY AFFECTED NORMAL SINUS RHYTHM NONSPECIFIC ST AND T WAVE ABNORMALITY ABNORMAL ECG WHEN COMPARED WITH ECG OF 14-APR-2018 19:30, MINIMAL CRITERIA FOR INFERIOR INFARCT ARE NO LONGER PRESENT T WAVE INVERSION LESS EVIDENT IN LATERAL LEADS Confirmed by EMELI VASQUEZ MD ([id number]) on 05/13/2018 6:05:00 PM Referred By: Confirmed By:EMELI VASQUEZ MD
[2018-05-13 20:01] LABS: HEMATOCRIT 27.8 % (32.4-45.2); HEMOGLOBIN 9.2 GM/dL (10.7-15.3); MCH 31.4 pg (25.7-33.7); MCHC 33.2 g/dl (32.0-36.0); MEAN CELL VOLUME 94.6 fl (80-96); PLATELET COUNT 260 K/MM3 (134-434); RBC 2.93 M/mm3 (3.60-5.2); RDW 15.1 % (11.6-15.6); WHITE BLOOD COUNT 6.8 K/mm3 (4.0-10.0)
[2018-05-13] MEDS: ATORVASTATIN CA 40 MG TABLET (FP) PO SCH (21:38)
[2018-05-14] MEDS ORDERED: ONDANSETRON 4 MG/2 ML VIAL IVPUSH ONE (06:23)
[2018-05-14] MEDS: INSULIN SLIDING SCALE (NOVOLOG) 1 VIAL SQ SCH ×3 (06:32→21:46)
[2018-05-14 08:53] LABS: BASO % 0.8 % (0-2.0); HEMATOCRIT 27.8 % (32.4-45.2); HEMOGLOBIN 9.4 GM/dL (10.7-15.3); LYMPH % 18.3 % (8-40); MCH 32.2 pg (25.7-33.7); MCHC 33.9 g/dl (32.0-36.0); MEAN CELL VOLUME 94.7 fl (80-96); MEAN PLT VOLUME 9.3 fl (7.5-11.1); NEUT % 73.9 % (42.8-82.8); PLATELET COUNT 261 K/MM3 (134-434); RBC 2.93 M/mm3 (3.60-5.2); RDW 15.2 % (11.6-15.6); WHITE BLOOD COUNT 6.7 K/mm3 (4.0-10.0)
[2018-05-14 09:12] LABS: ANION GAP 11 MMOL/L (8-16); BLOOD UREA NITROGEN 61 mg/dL (7-18); CALCIUM 7.3 mg/dL (8.5-10.1); CHLORIDE 95 mmol/L (98-107); CO2 24 mmol/L (21-32); GLUCOSE,RANDOM 92 mg/dL (74-106); POTASSIUM 5.7 mmol/L (3.5-5.1); SODIUM 130 mmol/L (136-145)
[2018-05-14 10:01] LABS: CREATININE 7.4 mg/dL (0.55-1.3)
[2018-05-14] MEDS: PANTOPRAZOLE 20 MG TABLET (FP) PO SCH (10:52)
[2018-05-14] MEDS: amLODIPine BESYLATE 5 MG TABLET (FP) PO SCH (10:52)
[2018-05-14] MEDS: CARVEDILOL 12.5 MG TABLET (FP) PO SCH ×2 (10:52→21:30)
[2018-05-14] MEDS: POLYETHYLENE GLYCOL 3350 119 GM BTL PO SCH (10:53)
[2018-05-14] MEDS ORDERED: SODIUM CHLORIDE 250 ML IV PRN (14:36)
--- NOTE | 2018-05-14 14:36 | PN ---
Progress Note, Physician History of Present Illness: Pt seen and examined at bedside. She is awake and alert. She denies shortness of breath. - Current Medication List Current Medications: Active Medications Amlodipine Besylate (Norvasc -) 5 mg PO DAILY [facility] Last Admin: 05/14/18 10:52 Dose: 5 mg Atorvastatin Calcium (Lipitor -) 40 mg PO HS [facility] Last Admin: 05/13/18 21:38 Dose: 40 mg Carvedilol (Coreg -) 12.5 mg PO BID [facility] Last Admin: 05/14/18 10:52 Dose: 12.5 mg Insulin Aspart (Novolog Vial Sliding Scale -) 1 vial SQ ACHS [facility]; Protocol Last Admin: 05/14/18 12:00 Dose: Not Given Pantoprazole Sodium (Protonix -) 20 mg PO DAILY [facility] Last Admin: 05/14/18 10:52 Dose: 20 mg Polyethylene Glycol (Miralax (For Daily Use) -) 17 gm PO DAILY [facility] Last Admin: 05/14/18 10:53 Dose: Not Given - Objective Vital Signs: Vital Signs Temperature 98.4 F 05/14/18 10:00 Pulse Rate 71 05/14/18 10:00 Respiratory Rate 18 05/14/18 10:00 Blood Pressure 123/54 L 05/14/18 10:00 O2 Sat by Pulse Oximetry (%) 97 05/14/18 10:00 Constitutional: Yes: Calm Eyes: Yes: Conjunctiva Clear HENT: Yes: Atraumatic Neck: Yes: Supple Cardiovascular: Yes: S1, S2 Respiratory: Yes: CTA Bilaterally Gastrointestinal: Yes: Soft Genitourinary: Yes: WNL Musculoskeletal: Yes: WNL Edema: Yes Edema: LLE: Trace, RLE: Trace Neurological: Yes: Oriented Psychiatric: Yes: Oriented Labs: CBC, BMP 05/14/18 07:50 05/14/18 07:50 INR, PTT INR 0.96 (0.83-1.09) 05/12/18 19:54 Assessment/Plan Current Medications Generic Name Dose Route Start Last Admin Trade Name Freq PRN Reason Stop Dose Admin Amlodipine Besylate 5 mg 05/13/18 10:00 05/14/18 10:52 Norvasc - PO 5 mg DAILY [facility] Administration Atorvastatin Calcium 40 mg 05/13/18 22:00 05/13/18 21:38 Lipitor - PO 40 mg HS [facility] Administration Carvedilol 12.5 mg 05/13/18 10:00 05/14/18 10:52 Coreg - PO 12.5 mg BID [facility] Administration Insulin Aspart 1 vial 05/12/18 22:00 05/14/18 12:00 Novolog Vial Sliding Scale - SQ Not Given ACHS [facility] Protocol Pantoprazole Sodium 20 mg 05/13/18 11:00 05/14/18 10:52 Protonix - PO 20 mg DAILY [facility] Administration Polyethylene Glycol 17 gm 05/13/18 11:00 05/14/18 10:53 Miralax (For Daily Use) - PO Not Given DAILY [facility] Impression 1. ESRD 2. dyspnea 3. CAD 4. HTN 5. DM 6. anemia 7. hx syncope 8. 1.4 cm left adrenal adenoma 9. hyperkalemia Plan - HD today for hyperkalemia - discussed diet at length - restrict free water - renal diet - pt resisting increasing HD time as outpt
--- NOTE | 2018-05-14 18:04 | PN ---
Teaching Attending Note Name of Resident: Karen Moura ATTENDING PHYSICIAN STATEMENT I saw and evaluated the patient. I reviewed the resident's note and discussed the case with the resident. I agree with the resident's findings and plan as documented. SUBJECTIVE: No fever or chills. has no pain, or SOB OBJECTIVE: NAD, awake CV: RRR, no MRG lungs: CTAB Ext: no edema Abd: soft, NT, ND, NL BS. Assessment/Plan: 72 y/o lady with h/o recent lower GI bleed , ESRD TTS, CAD, CABG, hyperlipidemia , chronic diastolic heart failure, anemia, CVA, diverticulosis who presented with SOB and rectal bleed , she was found ot have worsening of her chronic anemia. 1- Symptomatic anemia: worsening of chronic normocytic anemia. - bowel regimen - GI series pending . ? EGD after then - iron studies obtained form Hd center, form april: Ferritin 682, transferrin saturation 29%. - pt continues to use her aspirin despite instructions to stop it last admission. she was instructed to stop it. 2- SOB, Hd today - will add lasix on Non Hd days 3- HTN: cont coreg and norvasc 4- ESRD: Hd today 5- DVT PX : SCDs for now
--- NOTE | 2018-05-14 18:22 | PN ---
Physical Exam: SUBJECTIVE: Patient seen and examined this AM. No acute overnight events as per nursing staff. Patient says she feels some mild dizziness and nausea. Had a nonbloody BM overnight. OBJECTIVE: Vital Signs Period Temp Pulse Resp BP Sys/Rodriguez Pulse Ox Last 24 Hr 97 F-98.6 F 64-72 18-18 100-170/52-69 97-100 GENERAL: The patient is awake, alert, and fully oriented, in no acute distress. HEAD: NCAT EYES: PERRL, EOMI ENT: moist mucous membranes. NECK: Supple. No JVD LUNGS: Clear to auscultation bilaterally, no wheezes, no crackles HEART: Regular rate and rhythm, S1, S2 without murmur ABDOMEN: Soft, nontender, nondistended, + bowel sounds, no guarding EXTREMITIES: no edema. RUE Fistula with palpable thrill and Bruit on Auscultation NEUROLOGICAL: Cranial nerves II through XII grossly intact. Normal speech SKIN: Warm, dry Laboratory Results - last 24 hr 05/13/18 05/13/18 05/14/18 19:55 21:40 05:07 WBC 6.8 RBC 2.93 L Hgb 9.2 L Hct 27.8 L MCV 94.6 MCH 31.4 MCHC 33.2 RDW 15.1 Plt Count 260 MPV 9.0 Absolute Neuts (auto) Neutrophils % Lymphocytes % Monocytes % Eosinophils % Basophils % Nucleated RBC % Sodium Potassium Chloride Carbon Dioxide Anion Gap BUN Creatinine Creat Clearance w eGFR POC Glucometer 85 80 Random Glucose Calcium 05/14/18 05/14/18 05/14/18 07:50 07:50 11:58 WBC 6.7 RBC 2.93 L Hgb 9.4 L Hct 27.8 L MCV 94.7 MCH 32.2 MCHC 33.9 RDW 15.2 Plt Count 261 MPV 9.3 Absolute Neuts (auto) 5.0 Neutrophils % 73.9 Lymphocytes % 18.3 Monocytes % 5.0 Eosinophils % 2.0 Basophils % 0.8 Nucleated RBC % 0 Sodium 130 L Potassium 5.7 H Chloride 95 L Carbon Dioxide 24 Anion Gap 11 BUN 61 H Creatinine 7.4 H* Creat Clearance w eGFR 5.38 POC Glucometer 108 Random Glucose 92 Calcium 7.3 L Active Medications Amlodipine Besylate (Norvasc -) 5 mg PO DAILY [facility] Last Admin: 05/14/18 10:52 Dose: 5 mg Atorvastatin Calcium (Lipitor -) 40 mg PO HS [facility] Last Admin: 05/13/18 21:38 Dose: 40 mg Carvedilol (Coreg -) 12.5 mg PO BID [facility] Last Admin: 05/14/18 10:52 Dose: 12.5 mg Sodium Chloride (Normal Saline -) 250 mls @ 3,000 mls/hr IV PRN PRN PRN Reason: Hypotension during Dialysis Stop: 05/15/18 14:37 Insulin Aspart (Novolog Vial Sliding Scale -) 1 vial SQ ACHS [facility]; Protocol Last Admin: 05/14/18 12:00 Dose: Not Given Pantoprazole Sodium (Protonix -) 20 mg PO DAILY [facility] Last Admin: 05/14/18 10:52 Dose: 20 mg Polyethylene Glycol (Miralax (For Daily Use) -) 17 gm PO DAILY [facility] Last Admin: 05/14/18 10:53 Dose: Not Given Microbiology 05/12/18 19:54 Blood - Peripheral Venous Blood Culture - Preliminary NO GROWTH OBTAINED AFTER 24 HOURS, INCUBATION TO CONTINUE FOR 4 DAYS. 05/12/18 19:54 Blood - Peripheral Venous Blood Culture - Preliminary NO GROWTH OBTAINED AFTER 24 HOURS, INCUBATION TO CONTINUE FOR 4 DAYS. IMAGING: -CXR: No acute chest pathology. Large heart. Previous O a chest. -EKG: NSR, VR 70, QTc 477 ASSESSMENT/PLAN: 72 y/o F with PMHx of CAD (s/p CABG), ESRD (on HD //MON), DM, CHF, CVA, ventral hernia presented to the ED with complaints of palpitations/dizziness/ dyspnea after HD in addition to bloody bowel movements. #Dizziness -likely due to anemia now s/p 1 unit prbc transfusion -maintain Hgb >8 -monitor hemodynamics -Recent iron studies done at HD In April--Ferritin 688, transferrin saturation 29%, Hgb 11.2 #Bloody bowel movements -GI (Dr. Vela) Consulted, appreciate rec's -Continue bowel regimen via miralax BID, Pantoprazole 20mg Daily -UGIS pending tmrw, EGD to follow as per GI -Patient continues to use ASA though being instructed not to--Counselled again this AM on the importance of adherence to instructions #ESRD on HD (//MON) -Nephro (Dr. Mosquera) consulted, appreciate rec's -strict I&Os, daily weights -Will consider Lasix 60mg on non dialysis days -For dialysis today given hyperkalemia #HTN -Continue home dose amlodipine, Carvedilol #DM -ISS BGMS ACHS #HLD -Atorvastatin 40mg daily #PPX -DVT: SCDs #FEN -not on standing fluids -monitor electrolytes -Renal diet with freewater restriction Visit type - Emergency Visit Emergency Visit: Yes ED Registration Date: 05/12/18 Care time: The patient presented to the Emergency Department on the above date and was hospitalized for further evaluation of their emergent condition. - New Patient This patient is new to me today: Yes Date on this admission: 05/14/18 - Critical Care Critical Care patient: No
[2018-05-14] MEDS: ATORVASTATIN CA 40 MG TABLET (FP) PO SCH (21:30)
[2018-05-15] MEDS ORDERED: ACETAMINOPHEN 325 MG TABLET (FP) PO ONE ×2 (00:15→21:04)
[2018-05-15] MEDS: INSULIN SLIDING SCALE (NOVOLOG) 1 VIAL SQ SCH ×4 (06:26→22:00)
[2018-05-15] MEDS ORDERED: INSULIN (NOVOLOG) ASPART 100 UNITS/ML 10ML VIAL ONE (06:49)
[2018-05-15 07:16] LABS: BASO % 0.7 % (0-2.0); EOS % 1.8 % (0-4.5); HEMATOCRIT 25.9 % (32.4-45.2); HEMOGLOBIN 8.8 GM/dL (10.7-15.3); LYMPH % 22.9 % (8-40); MCH 32.2 pg (25.7-33.7); MCHC 33.9 g/dl (32.0-36.0); MEAN CELL VOLUME 95.1 fl (80-96); MEAN PLT VOLUME 8.9 fl (7.5-11.1); MONO % 6.3 % (3.8-10.2); NEUT % 68.3 % (42.8-82.8); PLATELET COUNT 221 K/MM3 (134-434); RBC 2.73 M/mm3 (3.60-5.2); RDW 15.5 % (11.6-15.6); WHITE BLOOD COUNT 5.8 K/mm3 (4.0-10.0)
[2018-05-15 07:54] LABS: ALBUMIN 3.1 g/dl (3.4-5.0); ALK PHOS 209 U/L (45-117); ANION GAP 8 MMOL/L (8-16); BILIRUBIN,TOTAL 0.3 mg/dL (0.2-1); BLOOD UREA NITROGEN 37 mg/dL (7-18); CALCIUM 7.1 mg/dL (8.5-10.1); CHLORIDE 97 mmol/L (98-107); CO2 28 mmol/L (21-32); CREATININE 5.2 mg/dL (0.55-1.3); GLUCOSE,RANDOM 94 mg/dL (74-106); MAGNESIUM 2.2 mg/dL (1.8-2.4); POTASSIUM 4.5 mmol/L (3.5-5.1); SGOT/AST 11 U/L (15-37); SGPT/ALT 17 U/L (13-61); SODIUM 133 mmol/L (136-145)
[2018-05-15] MEDS ORDERED: ONDANSETRON 4 MG/2 ML VIAL IVPUSH ONE (09:00)
[2018-05-15] MEDS: PANTOPRAZOLE 20 MG TABLET (FP) PO SCH (09:49)
[2018-05-15] MEDS: amLODIPine BESYLATE 5 MG TABLET (FP) PO SCH (09:49)
[2018-05-15] MEDS: CARVEDILOL 12.5 MG TABLET (FP) PO SCH ×2 (09:49→21:18)
[2018-05-15] MEDS: POLYETHYLENE GLYCOL 3350 119 GM BTL PO SCH (09:50)
--- NOTE | 2018-05-15 12:46 | PN ---
Progress Note, Physician History of Present Illness: Pt seen and examined at bedside. SHe is awake and alert. She feels that her breathing is improved. - Current Medication List Current Medications: Active Medications Amlodipine Besylate (Norvasc -) 5 mg PO DAILY [facility] Last Admin: 05/15/18 09:49 Dose: 5 mg Atorvastatin Calcium (Lipitor -) 40 mg PO HS [facility] Last Admin: 05/14/18 21:30 Dose: 40 mg Carvedilol (Coreg -) 12.5 mg PO BID [facility] Last Admin: 05/15/18 09:49 Dose: 12.5 mg Sodium Chloride (Normal Saline -) 250 mls @ 3,000 mls/hr IV PRN PRN PRN Reason: Hypotension during Dialysis Stop: 05/15/18 14:37 Insulin Aspart (Novolog Vial Sliding Scale -) 1 vial SQ ACHS [facility]; Protocol Last Admin: 05/15/18 11:17 Dose: Not Given Pantoprazole Sodium (Protonix -) 20 mg PO DAILY [facility] Last Admin: 05/15/18 09:49 Dose: 20 mg Polyethylene Glycol (Miralax (For Daily Use) -) 17 gm PO DAILY [facility] Last Admin: 05/15/18 09:50 Dose: 17 grams - Objective Vital Signs: Vital Signs Temperature 98.4 F 05/15/18 06:30 Pulse Rate 72 05/15/18 06:30 Respiratory Rate 20 05/15/18 06:30 Blood Pressure 126/64 05/15/18 06:30 O2 Sat by Pulse Oximetry (%) 97 05/14/18 22:00 Constitutional: Yes: Calm Eyes: Yes: Conjunctiva Clear HENT: Yes: Atraumatic Cardiovascular: Yes: S1, S2 Respiratory: Yes: On Nasal O2 Gastrointestinal: Yes: Soft Genitourinary: Yes: WNL Musculoskeletal: Yes: WNL Edema: LLE: Trace, RLE: Trace Neurological: Yes: Oriented Psychiatric: Yes: Oriented Labs: CBC, BMP 05/15/18 06:30 05/15/18 06:30 INR, PTT INR 0.96 (0.83-1.09) 05/12/18 19:54 Assessment/Plan Current Medications Generic Name Dose Route Start Last Admin Trade Name Freq PRN Reason Stop Dose Admin Amlodipine Besylate 5 mg 05/13/18 10:00 05/15/18 09:49 Norvasc - PO 5 mg DAILY [facility] Administration Atorvastatin Calcium 40 mg 05/13/18 22:00 05/14/18 21:30 Lipitor - PO 40 mg HS [facility] Administration Carvedilol 12.5 mg 05/13/18 10:00 05/15/18 09:49 Coreg - PO 12.5 mg BID [facility] Administration Sodium Chloride 250 mls @ 3,000 mls/hr 05/14/18 14:36 Normal Saline - IV 05/15/18 14:37 PRN PRN Hypotension during Dialysis Insulin Aspart 1 vial 05/12/18 22:00 05/15/18 11:17 Novolog Vial Sliding Scale - SQ Not Given ACHS [facility] Protocol Pantoprazole Sodium 20 mg 05/13/18 11:00 05/15/18 09:49 Protonix - PO 20 mg DAILY [facility] Administration Polyethylene Glycol 17 gm 05/13/18 11:00 05/15/18 09:50 Miralax (For Daily Use) - PO 17 grams DAILY [facility] Administration Impression 1. ESRD 2. dyspnea 3. CAD 4. HTN 5. DM 6. anemia 7. hx syncope 8. 1.4 cm left adrenal adenoma 9. hyperkalemia Plan - HD in am - pt is off of HD schedule - fluid restriction - renal diet - bp is stable
--- NOTE | 2018-05-15 13:24 | PN ---
Physical Exam: SUBJECTIVE: Patient seen and examined this AM. Continues to feel nausea, otherwise no new complaints. No acute overnight events as per nursing staff. For HD this am OBJECTIVE: Vital Signs Period Temp Pulse Resp BP Sys/Rodriguez Pulse Ox Last 24 Hr 98.2 F-98.6 F 65-80 18-20 126-178/60-76 97-98 GENERAL: The patient is awake, alert, and fully oriented, in no acute distress. HEAD: NCAT EYES: PERRL, EOMI ENT: moist mucous membranes. NECK: Supple. No JVD LUNGS: Clear to auscultation bilaterally, no wheezes, no crackles HEART: Regular rate and rhythm, S1, S2 without murmur ABDOMEN: Soft, nontender, nondistended, + bowel sounds, no guarding EXTREMITIES: no edema. RUE Fistula with palpable thrill and Bruit on Auscultation NEUROLOGICAL: Cranial nerves II through XII grossly intact. Normal speech SKIN: Warm, dry Laboratory Results - last 24 hr 05/14/18 05/15/18 05/15/18 21:27 05:48 06:30 WBC 5.8 RBC 2.73 L Hgb 8.8 L Hct 25.9 L MCV 95.1 MCH 32.2 MCHC 33.9 RDW 15.5 Plt Count 221 MPV 8.9 Absolute Neuts (auto) 3.9 Neutrophils % 68.3 Lymphocytes % 22.9 D Monocytes % 6.3 Eosinophils % 1.8 Basophils % 0.7 Nucleated RBC % 0 Sodium Potassium Chloride Carbon Dioxide Anion Gap BUN Creatinine Creat Clearance w eGFR POC Glucometer 135 87 Random Glucose Calcium Phosphorus Magnesium Total Bilirubin AST ALT Alkaline Phosphatase Total Protein Albumin 05/15/18 05/15/18 06:30 11:13 WBC RBC Hgb Hct MCV MCH MCHC RDW Plt Count MPV Absolute Neuts (auto) Neutrophils % Lymphocytes % Monocytes % Eosinophils % Basophils % Nucleated RBC % Sodium 133 L Potassium 4.5 Chloride 97 L Carbon Dioxide 28 Anion Gap 8 BUN 37 H Creatinine 5.2 H Creat Clearance w eGFR 8.09 POC Glucometer 92 Random Glucose 94 Calcium 7.1 L Phosphorus 4.0 Magnesium 2.2 Total Bilirubin 0.3 AST 11 L ALT 17 Alkaline Phosphatase 209 H Total Protein 6.0 L Albumin 3.1 L Microbiology 05/12/18 19:54 Blood - Peripheral Venous Blood Culture - Preliminary NO GROWTH OBTAINED AFTER 48 HOURS, INCUBATION TO CONTINUE FOR 3 DAYS. 05/12/18 19:54 Blood - Peripheral Venous Blood Culture - Preliminary NO GROWTH OBTAINED AFTER 48 HOURS, INCUBATION TO CONTINUE FOR 3 DAYS. Active Medications Amlodipine Besylate (Norvasc -) 5 mg PO DAILY [facility] Last Admin: 05/15/18 09:49 Dose: 5 mg Atorvastatin Calcium (Lipitor -) 40 mg PO HS [facility] Last Admin: 05/14/18 21:30 Dose: 40 mg Carvedilol (Coreg -) 12.5 mg PO BID [facility] Last Admin: 05/15/18 09:49 Dose: 12.5 mg Epoetin Edil (Epogen -) 6,000 unit IVPUSH ONCE ONE Stop: 05/16/18 12:48 Sodium Chloride (Normal Saline -) 250 mls @ 3,000 mls/hr IV PRN PRN PRN Reason: Hypotension during Dialysis Stop: 05/15/18 14:37 Sodium Chloride (Normal Saline -) 250 mls @ 3,000 mls/hr IV PRN PRN PRN Reason: Hypotension during Dialysis Stop: 05/16/18 12:47 Insulin Aspart (Novolog Vial Sliding Scale -) 1 vial SQ ACHS [facility]; Protocol Last Admin: 05/15/18 11:17 Dose: Not Given Pantoprazole Sodium (Protonix -) 20 mg PO DAILY [facility] Last Admin: 05/15/18 09:49 Dose: 20 mg Polyethylene Glycol (Miralax (For Daily Use) -) 17 gm PO DAILY [facility] Last Admin: 05/15/18 09:50 Dose: 17 grams IMAGING: -UGIS: No evidence of abnormal dilatation of esophagus, or esophageal stricture. No gastric or duodenal bulb ulcer is seen within limitation of examination. -CXR: No acute chest pathology. Large heart. Previous O a chest. -EKG: NSR, VR 70, QTc 477 ASSESSMENT/PLAN: 72 y/o F with PMHx of CAD (s/p CABG), ESRD (on HD //MON), DM, CHF, CVA, ventral hernia presented to the ED with complaints of palpitations/dizziness/ dyspnea after HD in addition to bloody bowel movements. #Dizziness, Improved -likely due to anemia now s/p 1 unit prbc transfusion -maintain Hgb >8 #Bloody bowel movements -GI (Dr. Vela) Consulted, appreciate rec's -Continue bowel regimen via miralax BID, Pantoprazole 20mg Daily -UGIS Noted above -EGD pending as per GI rec's -Counselled again to avoid ASA use #ESRD on HD (//MON) -Nephro (Dr. Mosquera) consulted, appreciate rec's -HD this AM -Lasix 60mg x1 today #Nausea -IV Ondansetron x 1 given this AM #HTN -Continue home dose amlodipine, Carvedilol #DM -ISS BGMS ACHS #HLD -Atorvastatin 40mg daily #PPX -DVT: SCDs #FEN -not on standing fluids -monitor electrolytes -Renal diet with free water restriction Visit type - Emergency Visit Emergency Visit: Yes ED Registration Date: 05/12/18 Care time: The patient presented to the Emergency Department on the above date and was hospitalized for further evaluation of their emergent condition. - New Patient This patient is new to me today: No - Critical Care Critical Care patient: No
[2018-05-15] MEDS ORDERED: FUROSEMIDE 40 MG/4 ML INJECTABLE VIAL IVPUSH ONE (13:31)
--- NOTE | 2018-05-15 13:36 | PN.GI ---
GI Progress Note Subjective: Overall states feeling well S/P GI Series Some nausea however tolerated Solids after testing - Objective Vital Signs: Vital Signs Temperature 98.4 F 05/15/18 06:30 Pulse Rate 75 05/15/18 10:00 Respiratory Rate 20 05/15/18 10:00 Blood Pressure 143/76 05/15/18 10:00 O2 Sat by Pulse Oximetry (%) 97 05/14/18 22:00 Constitutional: Calm Eyes: No: Sclera Icterus Cardiovascular: Yes: Regular Rate and Rhythm Respiratory: Yes: CTA Bilaterally Gastrointestinal Inspection: No: Distention ...Auscultate: Yes: Normoactive Bowel Sounds ...Palpate: Yes: Soft. No: Hepatomegaly, Splenomegaly, Tenderness Edema: No (No LE edema) Neurological: Yes: Alert Labs: CBC, BMP 05/15/18 06:30 05/15/18 06:30 INR, PTT INR 0.96 (0.83-1.09) 05/12/18 19:54 Problem List - Problems (1) Rectal bleed Assessment/Plan: No overt bleeding Code(s): K62.5 - HEMORRHAGE OF ANUS AND RECTUM (2) Decreased appetite Assessment/Plan: Awaiting GI series Discussed plan for possible EGD with Ms. Posey this past monday as well as this afternoon. She is amenable. NPO after midnight except meds Code(s): R63.0 - ANOREXIA
--- NOTE | 2018-05-15 18:52 | PN ---
Teaching Attending Note Name of Resident: Karen Moura ATTENDING PHYSICIAN STATEMENT I saw and evaluated the patient. I reviewed the resident's note and discussed the case with the resident. I agree with the resident's findings and plan as documented. SUBJECTIVE: no fever or chills . no abd pain, has no SOB . nausea this am OBJECTIVE: NAD, awake CV: RRR, 2/6 SM at base lungs: CTAB Ext: no edema Abd: soft, NT, ND, NL BS. Assessment/Plan: 72 y/o lady with h/o recent lower GI bleed , ESRD TTS, CAD, CABG, hyperlipidemia , chronic diastolic heart failure, anemia, CVA, diverticulosis who presented with SOB and rectal bleed , she was found ot have worsening of her chronic anemia. 1- Symptomatic anemia: worsening of chronic normocytic anemia. - bowel regimen - GI series reviewed. EGD in am - pt continues to use her aspirin despite instructions to stop it last admission. she was instructed to stop it. 2- SOB, HD tomorrow - will add lasix on Non HD days 3- HTN: cont coreg and norvasc 4- ESRD: Hd tomorrow 5- DVT PX : SCDs for now
[2018-05-15] MEDS: ATORVASTATIN CA 40 MG TABLET (FP) PO SCH (21:18)
[2018-05-16] MEDS: INSULIN SLIDING SCALE (NOVOLOG) 1 VIAL SQ SCH ×5 (06:34→21:26)
[2018-05-16 07:56] LABS: EOS % 2.2 % (0-4.5); HEMATOCRIT 25.7 % (32.4-45.2); HEMOGLOBIN 8.8 GM/dL (10.7-15.3); LYMPH % 21.5 % (8-40); MCH 32.1 pg (25.7-33.7); MCHC 34.2 g/dl (32.0-36.0); MEAN PLT VOLUME 8.9 fl (7.5-11.1); MONO % 5.7 % (3.8-10.2); NEUT % 69.6 % (42.8-82.8); PLATELET COUNT 219 K/MM3 (134-434); RBC 2.73 M/mm3 (3.60-5.2); WHITE BLOOD COUNT 6.2 K/mm3 (4.0-10.0)
[2018-05-16 08:28] LABS: ALBUMIN 3.1 g/dl (3.4-5.0); ALK PHOS 203 U/L (45-117); ANION GAP 9 MMOL/L (8-16); BILIRUBIN,TOTAL 0.3 mg/dL (0.2-1); BLOOD UREA NITROGEN 56 mg/dL (7-18); CALCIUM 7.3 mg/dL (8.5-10.1); CHLORIDE 95 mmol/L (98-107); CO2 28 mmol/L (21-32); CREATININE 7.3 mg/dL (0.55-1.3); GLUCOSE,RANDOM 98 mg/dL (74-106); MAGNESIUM 2.3 mg/dL (1.8-2.4); PHOSPHOROUS 5.2 mg/dL (2.5-4.9); POTASSIUM 4.6 mmol/L (3.5-5.1); SGOT/AST 10 U/L (15-37); SGPT/ALT 16 U/L (13-61); SODIUM 132 mmol/L (136-145); TOT PROT 5.8 g/dl (6.4-8.2)
--- NOTE | 2018-05-16 08:36 | PN ---
Physical Exam: SUBJECTIVE: Patient seen and examined this AM. Received tylenol for headache overnight; otherwise no new complaints. No acute overnight events as per nursing staff. For EGD today. Denies any fevers, chills, chest pain, SOB, nausea , vomiting, diarrhea, constipation. OBJECTIVE: Vital Signs Period Temp Pulse Resp BP Sys/Rodriguez Pulse Ox Last 24 Hr 98 F-100.0 F 74-83 20-20 112-152/57-76 97 GENERAL: The patient is awake, alert, and fully oriented, in no acute distress. HEAD: NCAT EYES: PERRL, EOMI ENT: moist mucous membranes. NECK: Supple. No JVD LUNGS: Clear to auscultation bilaterally, no wheezes, no crackles HEART: Regular rate and rhythm, S1, S2 without murmur ABDOMEN: Soft, nontender, nondistended, + bowel sounds, no guarding EXTREMITIES: no edema. RUE Fistula with palpable thrill and Bruit on Auscultation NEUROLOGICAL: Cranial nerves II through XII grossly intact. Normal speech SKIN: Warm, dry Laboratory Results - last 24 hr 05/15/18 05/16/18 05/16/18 21:03 06:34 07:00 WBC 6.2 RBC 2.73 L Hgb 8.8 L Hct 25.7 L MCV 94.0 MCH 32.1 MCHC 34.2 RDW 15.0 Plt Count 219 MPV 8.9 Absolute Neuts (auto) 4.3 Neutrophils % 69.6 Lymphocytes % 21.5 Monocytes % 5.7 Eosinophils % 2.2 Basophils % 1.0 Nucleated RBC % 0 Sodium Potassium Chloride Carbon Dioxide Anion Gap BUN Creatinine Creat Clearance w eGFR POC Glucometer 73 95 Random Glucose Calcium Phosphorus Magnesium Total Bilirubin AST ALT Alkaline Phosphatase Total Protein Albumin Blood Type Antibody Screen Crossmatch 05/16/18 07:00 WBC RBC Hgb Hct MCV MCH MCHC RDW Plt Count MPV Absolute Neuts (auto) Neutrophils % Lymphocytes % Monocytes % Eosinophils % Basophils % Nucleated RBC % Sodium 132 L Potassium 4.6 Chloride 95 L Carbon Dioxide 28 Anion Gap 9 BUN 56 H Creatinine 7.3 H Creat Clearance w eGFR 5.47 POC Glucometer Random Glucose 98 Calcium 7.3 L Phosphorus 5.2 H Magnesium 2.3 Total Bilirubin 0.3 AST 10 L ALT 16 Alkaline Phosphatase 203 H Total Protein 5.8 L Albumin 3.1 L Blood Type Antibody Screen Crossmatch Microbiology 05/12/18 19:54 Blood - Peripheral Venous Blood Culture - Preliminary NO GROWTH OBTAINED AFTER 72 HOURS, INCUBATION TO CONTINUE FOR 2 DAYS. 05/12/18 19:54 Blood - Peripheral Venous Blood Culture - Preliminary NO GROWTH OBTAINED AFTER 72 HOURS, INCUBATION TO CONTINUE FOR 2 DAYS. Active Medications Amlodipine Besylate (Norvasc -) 5 mg PO DAILY [facility] Last Admin: 05/15/18 09:49 Dose: 5 mg Atorvastatin Calcium (Lipitor -) 40 mg PO HS [facility] Last Admin: 05/15/18 21:18 Dose: 40 mg Carvedilol (Coreg -) 12.5 mg PO BID [facility] Last Admin: 05/15/18 21:18 Dose: 12.5 mg Epoetin Edil (Procrit -) 6,000 unit IVPUSH ONCE ONE Stop: 05/16/18 12:48 Sodium Chloride (Normal Saline -) 250 mls @ 3,000 mls/hr IV PRN PRN PRN Reason: Hypotension during Dialysis Stop: 05/16/18 12:47 Insulin Aspart (Novolog Vial Sliding Scale -) 1 vial SQ ACHS [facility]; Protocol Last Admin: 05/16/18 06:34 Dose: Not Given Pantoprazole Sodium (Protonix -) 20 mg PO DAILY [facility] Last Admin: 05/15/18 09:49 Dose: 20 mg Polyethylene Glycol (Miralax (For Daily Use) -) 17 gm PO DAILY [facility] Last Admin: 05/15/18 09:50 Dose: 17 grams IMAGING: -UGIS: No evidence of abnormal dilatation of esophagus, or esophageal stricture. No gastric or duodenal bulb ulcer is seen within limitation of examination. -CXR: No acute chest pathology. Large heart. Previous O a chest. -EKG: NSR, VR 70, QTc 477 ASSESSMENT/PLAN: 72 y/o F with PMHx of CAD (s/p CABG), ESRD (on HD //MON), DM, CHF, CVA, ventral hernia presented to the ED with complaints of palpitations/dizziness/ dyspnea after HD in addition to bloody bowel movements. #Dizziness, Improved -likely due to anemia now s/p 1 unit prbc transfusion -maintain Hgb >8 #Bloody bowel movements -GI (Dr. Vela) Consulted, appreciate rec's -Continue bowel regimen via miralax BID, Pantoprazole 20mg Daily -UGIS Noted above -EGD pending as per GI rec's -Counselled again to avoid ASA use #ESRD on HD (/MON) -Nephro (Dr. Mosquera) consulted, appreciate rec's #HTN -Continue home dose amlodipine, Carvedilol #DM -ISS BGMS ACHS #HLD -Atorvastatin 40mg daily #PPX -DVT: SCDs #FEN -not on standing fluids -monitor electrolytes -Renal diet with free water restriction Visit type - Emergency Visit Emergency Visit: Yes ED Registration Date: 05/15/18 Care time: The patient presented to the Emergency Department on the above date and was hospitalized for further evaluation of their emergent condition. - New Patient This patient is new to me today: No - Critical Care Critical Care patient: No - Discharge Referral Referred to [facility] Med [facility].C.: No
--- NOTE | 2018-05-16 09:13 | PN ---
Teaching Attending Note Name of Resident: Karen Moura ATTENDING PHYSICIAN STATEMENT I saw and evaluated the patient. I reviewed the resident's note and discussed the case with the resident. I agree with the resident's findings and plan as documented. SUBJECTIVE: Patient c/o having chest pain, transferred to [facility] for further monitoring. daughter at bedside. OBJECTIVE: Vital Signs Temperature 98.6 F 05/16/18 05:42 Pulse Rate 83 05/16/18 05:42 Respiratory Rate 20 05/16/18 05:42 Blood Pressure 152/70 05/16/18 05:42 O2 Sat by Pulse Oximetry (%) 97 05/15/18 23:48 GENERAL: The patient is awake, alert, and fully oriented. with mild distress. HEAD: NCAT, EYES: PERRL, EOMI ENT: moist mucous membranes. NECK: Supple. No JVD LUNGS: Clear to auscultation bilaterally, no wheezes, no crackles HEART: Regular rate and rhythm, S1, S2 without murmur ABDOMEN: Soft, nontender, nondistended, + bowel sounds, no guarding EXTREMITIES: no edema. RUE Fistula with palpable thrill and Bruit on Auscultation NEUROLOGICAL: Cranial nerves II through XII grossly intact. Normal speech SKIN: Warm, dry. CBCD WBC 6.2 K/mm3 (4.0-10.0) 05/16/18 07:00 RBC 2.73 M/mm3 (3.60-5.2) L 05/16/18 07:00 Hgb 8.8 GM/dL (10.7-15.3) L 05/16/18 07:00 Hct 25.7 % (32.4-45.2) L 05/16/18 07:00 MCV 94.0 fl (80-96) 05/16/18 07:00 MCHC 34.2 g/dl (32.0-36.0) 05/16/18 07:00 RDW 15.0 % (11.6-15.6) 05/16/18 07:00 Plt Count 219 K/MM3 (134-434) 05/16/18 07:00 MPV 8.9 fl (7.5-11.1) 05/16/18 07:00 CMP Sodium 132 mmol/L (136-145) L 05/16/18 07:00 Potassium 4.6 mmol/L (3.5-5.1) 05/16/18 07:00 Chloride 95 mmol/L (98-107) L 05/16/18 07:00 Carbon Dioxide 28 mmol/L (21-32) 05/16/18 07:00 Anion Gap 9 MMOL/L (8-16) 05/16/18 07:00 BUN 56 mg/dL (7-18) H 05/16/18 07:00 Creatinine 7.3 mg/dL (0.55-1.3) H 05/16/18 07:00 Creat Clearance w eGFR 5.47 (>60) 05/16/18 07:00 Random Glucose 98 mg/dL (74-106) 05/16/18 07:00 Calcium 7.3 mg/dL (8.5-10.1) L 05/16/18 07:00 Total Bilirubin 0.3 mg/dL (0.2-1) 05/16/18 07:00 AST 10 U/L (15-37) L 05/16/18 07:00 ALT 16 U/L (13-61) 05/16/18 07:00 Alkaline Phosphatase 203 U/L (45-117) H 05/16/18 07:00 Total Protein 5.8 g/dl (6.4-8.2) L 05/16/18 07:00 Albumin 3.1 g/dl (3.4-5.0) L 05/16/18 07:00 CARDIAC ENZYMES Troponin I < 0.02 ng/ml (0.00-0.05) 05/12/18 19:54 Current Medications Generic Name Dose Route Start Last Admin Trade Name Jessica PRN Reason Stop Dose Admin Amlodipine Besylate 5 mg 05/13/18 10:00 05/15/18 09:49 Norvasc - PO 5 mg DAILY [facility] Administration Atorvastatin Calcium 40 mg 05/13/18 22:00 05/15/18 21:18 Lipitor - PO 40 mg HS [facility] Administration Carvedilol 12.5 mg 05/13/18 10:00 05/15/18 21:18 Coreg - PO 12.5 mg BID [facility] Administration Epoetin Edil 6,000 unit 05/16/18 12:47 Procrit - IVPUSH 05/16/18 12:48 ONCE ONE Sodium Chloride 250 mls @ 3,000 mls/hr 05/15/18 12:47 Normal Saline - IV 05/16/18 12:47 PRN PRN Hypotension during Dialysis Insulin Aspart 1 vial 05/12/18 22:00 05/16/18 06:34 Novolog Vial Sliding Scale - SQ Not Given ACHS [facility] Protocol Pantoprazole Sodium 20 mg 05/13/18 11:00 05/15/18 09:49 Protonix - PO 20 mg DAILY [facility] Administration Polyethylene Glycol 17 gm 05/13/18 11:00 05/15/18 09:50 Miralax (For Daily Use) - PO 17 grams DAILY [facility] Administration Home Medications Medication Instructions Recorded Gabapentin 100 mg PO HS 09/20/16 Pyridoxine HCl (Vitamin B6) 100 mg PO DAILY 09/27/17 [Vitamin B-6] Atorvastatin Ca [Lipitor] 40 mg PO DAILY 10/10/17 Carvedilol 12.5 mg PO BID #60 tablet 02/25/18 Amlodipine Besylate 5 mg PO DAILY 04/17/18 Aspirin [Aspirin EC] 81 mg PO DAILY 05/13/18 ASSESSMENT AND PLAN: Patient is a 72yo lady with PMhx of recent lower GI bleed , ESRD (TTS), CAD, CABG, hyperlipidemia, chronic diastolic heart failure, anemia, CVA, diverticulosis who presented with SOB and rectal bleed , she was found ot have worsening of her chronic anemia. # Acute chest pain r/o acs , cardio consult APPRECIATED, EKG, troponin level Q6H X3. 1ST TROP.IS NEGtive. Ischemia w/u after GI w/u since might be needing to be on Plavix and aspirin. # Acute symptomatic on chronic normocytic anemia: patient's EGD was cancelled due to having chest pain. patient continues to use her aspirin despite instructions to stop it last admission. she was instructed to stop it. # Acute SOB on HD due ESRD , lasix on Non HD days # HTN: cont coreg and norvasc # ESRD: on HD , nephro on the cSE DVT PX : SCDs for now
[2018-05-16] MEDS: PANTOPRAZOLE 20 MG TABLET (FP) PO SCH ×2 (09:25→18:37)
[2018-05-16] MEDS: POLYETHYLENE GLYCOL 3350 119 GM BTL PO SCH (09:25)
[2018-05-16 11:49] LABS: HEMATOCRIT 24.8 % (32.4-45.2); HEMOGLOBIN 8.4 GM/dL (10.7-15.3); MCH 31.8 pg (25.7-33.7); MCHC 33.7 g/dl (32.0-36.0); MEAN CELL VOLUME 94.4 fl (80-96); MEAN PLT VOLUME 9.3 fl (7.5-11.1); PLATELET COUNT 215 K/MM3 (134-434); RBC 2.63 M/mm3 (3.60-5.2); RDW 14.8 % (11.6-15.6); WHITE BLOOD COUNT 5.1 K/mm3 (4.0-10.0)
[2018-05-16 12:16] LABS: ANION GAP 8 MMOL/L (8-16); BLOOD UREA NITROGEN 39 mg/dL (7-18); CALCIUM 7.3 mg/dL (8.5-10.1); CHLORIDE 100 mmol/L (98-107); CO2 29 mmol/L (21-32); CREATININE 5.3 mg/dL (0.55-1.3); GLUCOSE,RANDOM 117 mg/dL (74-106); POTASSIUM 3.8 mmol/L (3.5-5.1); SODIUM 136 mmol/L (136-145)
[2018-05-16] MEDS ORDERED: SODIUM CHLORIDE 250 ML IV PRN (12:27)
--- NOTE | 2018-05-16 12:28 | EKG ---
Test Reason : Blood Pressure : / mmHG Vent. Rate : 063 BPM Atrial Rate : 063 BPM P-R Int : 190 ms QRS Dur : 096 ms QT Int : 468 ms P-R-T Axes : 049 012 109 degrees QTc Int : 478 ms NORMAL SINUS RHYTHM NONSPECIFIC T WAVE ABNORMALITY ABNORMAL ECG WHEN COMPARED WITH ECG OF 12-MAY-2018 20:46, NONSPECIFIC T WAVE ABNORMALITY NOW EVIDENT IN INFERIOR LEADS NONSPECIFIC T WAVE ABNORMALITY, WORSE IN ANTEROLATERAL LEADS Confirmed by EVONNE HERNANDEZ, ARETHA ([id number]) on 05/16/2018 12:28:13 PM Referred By: ADAMS DEVINE Confirmed By:ARETHA DOUGLASS MD
[2018-05-16] MEDS ORDERED: EPOETIN ALFA 3,000 UNIT/1 ML ML IVPUSH ONE (12:30)
--- NOTE | 2018-05-16 12:47 | PN ---
Progress Note, Physician History of Present Illness: Pt seen and examined at bedside. SHe had chest pain about 2 hours into HD. We stopped HD. She says that the chest pain was substernal. It is now resolved. I called the medical team and we did an ecg which showed inverted t waves in lateral leads. Cardiology called and pt will be transferred to [facility]. Cardiac enzymes were sent as well. Pt is sitting up and currently comfortable. - Current Medication List Current Medications: Active Medications Amlodipine Besylate (Norvasc -) 5 mg PO DAILY [facility] Last Admin: 05/15/18 09:49 Dose: 5 mg Atorvastatin Calcium (Lipitor -) 40 mg PO HS [facility] Last Admin: 05/15/18 21:18 Dose: 40 mg Carvedilol (Coreg -) 12.5 mg PO BID [facility] Last Admin: 05/15/18 21:18 Dose: 12.5 mg Insulin Aspart (Novolog Vial Sliding Scale -) 1 vial SQ ACHS [facility]; Protocol Last Admin: 05/16/18 09:23 Dose: Not Given Pantoprazole Sodium (Protonix -) 20 mg PO DAILY [facility] Last Admin: 05/16/18 09:25 Dose: Not Given Polyethylene Glycol (Miralax (For Daily Use) -) 17 gm PO DAILY [facility] Last Admin: 05/16/18 09:25 Dose: Not Given - Objective Vital Signs: Vital Signs Temperature 98.2 F 05/16/18 10:25 Pulse Rate 70 05/16/18 11:00 Respiratory Rate 18 05/16/18 11:00 Blood Pressure 160/68 05/16/18 11:00 O2 Sat by Pulse Oximetry (%) 99 05/16/18 09:00 Constitutional: Yes: Calm, Poor Hygeine Eyes: Yes: Conjunctiva Clear Cardiovascular: Yes: S1, S2, Other (had chest pain) Respiratory: Yes: CTA Bilaterally, On Nasal O2 Gastrointestinal: Yes: Soft Genitourinary: Yes: WNL Musculoskeletal: Yes: WNL Edema: No Neurological: Yes: Oriented Psychiatric: Yes: Oriented Labs: CBC, BMP 05/16/18 10:30 05/16/18 10:30 INR, PTT INR 0.96 (0.83-1.09) 05/12/18 19:54 Assessment/Plan Current Medications Generic Name Dose Route Start Last Admin Trade Name Freq PRN Reason Stop Dose Admin Amlodipine Besylate 5 mg 05/13/18 10:00 05/15/18 09:49 Norvasc - PO 5 mg DAILY [facility] Administration Atorvastatin Calcium 40 mg 05/13/18 22:00 05/15/18 21:18 Lipitor - PO 40 mg HS [facility] Administration Carvedilol 12.5 mg 05/13/18 10:00 05/15/18 21:18 Coreg - PO 12.5 mg BID [facility] Administration Insulin Aspart 1 vial 05/12/18 22:00 05/16/18 09:23 Novolog Vial Sliding Scale - SQ Not Given ACHS [facility] Protocol Pantoprazole Sodium 20 mg 05/13/18 11:00 05/16/18 09:25 Protonix - PO Not Given DAILY [facility] Polyethylene Glycol 17 gm 05/13/18 11:00 05/16/18 09:25 Miralax (For Daily Use) - PO Not Given DAILY [facility] Impression 1. ESRD 2. dyspnea 3. CAD 4. HTN 5. DM 6. anemia 7. hx syncope 8. 1.4 cm left adrenal adenoma 9. hyperkalemia 10. chest pain Plan - HD terminated early secondary to chest pain - pt will be transferred to tele, discussed with medical team at bedside - monitor bp after she gets her meds - renal diet - will evaluate for HD daily - get cxr
[2018-05-16 12:53] LABS: BASO % 0.9 % (0-2.0); HEMATOCRIT 27.1 % (32.4-45.2); HEMOGLOBIN 9.1 GM/dL (10.7-15.3); LYMPH % 20.9 % (8-40); MCH 32.2 pg (25.7-33.7); MCHC 33.8 g/dl (32.0-36.0); MEAN CELL VOLUME 95.4 fl (80-96); MEAN PLT VOLUME 9.2 fl (7.5-11.1); NEUT % 70.2 % (42.8-82.8); PLATELET COUNT 230 K/MM3 (134-434); RBC 2.84 M/mm3 (3.60-5.2); RDW 15.1 % (11.6-15.6); WHITE BLOOD COUNT 5.4 K/mm3 (4.0-10.0)
--- NOTE | 2018-05-16 13:13 | PN ---
Progress Note (short form) - Note Progress Note: Subjective: I was informed by nurse at 11:51 that patient was experiencing chest pain during HD. Patient said she felt a squeezing chest pain accompanied by headache and dizziness over her left breast. Denies SOB, diaphoresis, or pain radiation into arm or neck. Upon arrival, her symptoms have resolved. Objective: HR 66, RR 12 100% on Room Air BP1: 170/74 BP2: 175/72 General: Lying comfortably, Mild Distress Neck: No JVD Lungs: CTA b/l, no wheezes, no crackles Heart: RRR, S1 S2 without murmur Extremities: no edema Assessment/Plan: #Chest Pain--R/O ACS -Stat Trop, CBC, CMP, Mag, Phos ordered -EKG done showed new TWI in V5-V6 -CXR Ordered -Cardiology consulted--I spoke with Dr. Powell who is aware of events and says Dr. Stack is covering and will be rounding shortly -Dr. Mosquera is aware of events -Transfer to Telemetry -Will hold off on ASA given recent GI Bleed
[2018-05-16] MEDS: amLODIPine BESYLATE 5 MG TABLET (FP) PO SCH (13:15)
[2018-05-16] MEDS: CARVEDILOL 12.5 MG TABLET (FP) PO SCH ×3 (13:15→21:26)
[2018-05-16 13:16] LABS: ALBUMIN 3.2 g/dl (3.4-5.0); ALK PHOS 213 U/L (45-117); ANION GAP 7 MMOL/L (8-16); BILIRUBIN,TOTAL 0.2 mg/dL (0.2-1); BLOOD UREA NITROGEN 34 mg/dL (7-18); CALCIUM 7.4 mg/dL (8.5-10.1); CHLORIDE 103 mmol/L (98-107); CO2 31 mmol/L (21-32); CREATININE 5.3 mg/dL (0.55-1.3); GLUCOSE,RANDOM 103 mg/dL (74-106); MAGNESIUM 2.2 mg/dL (1.8-2.4); PHOSPHOROUS 3.5 mg/dL (2.5-4.9); POTASSIUM 4.2 mmol/L (3.5-5.1); SGOT/AST 11 U/L (15-37); SGPT/ALT 14 U/L (13-61); SODIUM 141 mmol/L (136-145); TOT PROT 6.1 g/dl (6.4-8.2)
--- NOTE | 2018-05-16 14:09 | PN ---
Progress Note (short form) - Note Progress Note: Pt was scheduled for EGD today however reported chest pain and sob during hemodialysis this am. Pt being transferred to telemetry and pending cardiology evaluation. Will defer EGD at this time. Pending cardiology workup and clinical course, can reschedule EGD accordingly.
--- NOTE | 2018-05-16 15:44 | CON.CARD ---
Consult Consult Specialty:: Cardiology Referred by:: Luis Sales Reason for Consultation:: chest pain - History of Present Illness Chief Complaint: Chest pain History of Present Illness: 72 year old female with a pmhx of htn, esrd on hd, CAD s/p CABG 2004 [facility], hld, dm, sbo s/p resection, and diastolic CHF who presents with palpitations/ dizziness and sob. Noted to have mild trend down in her Hgb along with bloody bowel movements. Recent lower GI bleed s/p colonoscopy 04/17/18 with diverticulosis and visible vessel in the cecum s/p endoclip. Planned for EGD. During dialysis today had some mild central chest pressure and headache. Self- resolved. No sob or diaphoresis at the time. Days she gets this occasional pain at dialysis and no other time. ET limited due to fatigue but no chest pain. Feels fine at this time. EKG sinus rhythm with nonspecific lateral T wave abnormalities. 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 Cardio/Vascular: Yes: CAD, CHF, HTN, MT, Hyperlipdemia Gastrointestinal: Yes: Diverticulosis Renal/: Yes: Renal Failure, Hemodialysis ...: No Psych: Yes: Anxiety Musculoskeletal: Yes: Chronic low back pain Endocrine: Yes: Diabetes Mellitus - Past Surgical History Past Surgical History: Yes: AV Fistula/Graft, CABG Additional Surgical History: Unknown abdominal surgery - Alcohol/Substance Use Hx Alcohol Use: No History of Substance Use: reports: None - Smoking History Smoking history: Never smoked Have you smoked in the past 12 months: No Aproximately how many cigarettes per day: 0 - Social History Usual Living Arrangement: With Child ADL: Independent History of Recent Travel: No Home Medications - Allergies Allergies/Adverse Reactions: Allergies Allergy/AdvReac Type Severity Reaction Status Date / Time No Known Allergies Allergy Verified 02/23/18 18:23 - Home Medications Home Medications: Ambulatory Orders Gabapentin 100 mg PO HS 09/20/16 Pyridoxine HCl (Vitamin B6) [Vitamin B-6] 100 mg PO DAILY 09/27/17 Atorvastatin Ca [Lipitor] 40 mg PO DAILY 10/10/17 Carvedilol 12.5 mg PO BID #60 tablet 02/25/18 Amlodipine Besylate 5 mg PO DAILY 04/17/18 Aspirin [Aspirin EC] 81 mg PO DAILY 05/13/18 Family Disease History - Family Disease History Other Family History: No family history of colorectal cancer Vital Signs: Vital Signs Temperature 98.2 F 05/16/18 10:25 Pulse Rate 66 05/16/18 12:15 Respiratory Rate 18 05/16/18 12:15 Blood Pressure 175/60 H 05/16/18 12:15 O2 Sat by Pulse Oximetry (%) 99 05/16/18 09:00 Constitutional: Yes: No Distress Neck: Yes: Supple Respiratory: Yes: CTA Bilaterally Gastrointestinal: Yes: Soft Cardiovascular: Yes: Regular Rate and Rhythm Carotid Bruit: No PMI: Non-Displaced Heart Sounds: Yes: S1, S2 Murmur: Yes: Systolic Murmur (+2/6 HSM RUSB) Edema: No - Other Data Labs, Other Data: CBC, BMP 05/16/18 12:15 05/16/18 12:15 INR, PTT INR 0.96 (0.83-1.09) 05/12/18 19:54 Troponin, BNP 05/16/18 12:15 Troponin I < 0.02 Troponin, BNP 05/16/18 12:15 Troponin I < 0.02 Imaging - Results EKG: Image Reviewed Assessment/Plan 72 year old female with a pmhx of htn, esrd on hd, CAD s/p CABG 2004 [facility], hld, dm, sbo s/p resection, and diastolic CHF who presents with palpitations/ dizziness and sob. Noted to have mild trend down in her Hgb along with bloody bowel movements. Recent lower GI bleed s/p colonoscopy 04/17/18 with diverticulosis and visible vessel in the cecum s/p endoclip. Planned for EGD. During dialysis today had some mild central chest pressure and headache. Self- resolved. No sob or diaphoresis at the time. Days she gets this occasional pain at dialysis and no other time. ET limited due to fatigue but no chest pain. Feels fine at this time. EKG sinus rhythm with nonspecific lateral T wave abnormalities. 1) CAD -some mild chest pain during dialysis. EKG with very subtle abnormalities. Can trend CE's Monitor on tele given c/o palpitations at home -Would restart her beta demetrius if no contraindication or reason for holding. Continue statin Pursue GI work up to see if can restart aspirin. Would be beneficial cause will need ischemia work up in near future but would first need to know if any contraindication to aspirin/plavix. Will consider ischemia work up after GI work up complete, anemia stable, and bp controlled with good volume level
[2018-05-16] MEDS ORDERED: ACETAMINOPHEN 325 MG TABLET (FP) PO PRN (18:53)
--- NOTE | 2018-05-16 19:42 | EKG ---
Test Reason : Blood Pressure : / mmHG Vent. Rate : 074 BPM Atrial Rate : 074 BPM P-R Int : 200 ms QRS Dur : 098 ms QT Int : 422 ms P-R-T Axes : 015 012 110 degrees QTc Int : 468 ms SINUS RHYTHM WITH OCCASIONAL PREMATURE VENTRICULAR COMPLEXES NONSPECIFIC T WAVE ABNORMALITY ABNORMAL ECG WHEN COMPARED WITH ECG OF 16-MAY-2018 12:07, PREMATURE VENTRICULAR COMPLEXES ARE NOW PRESENT Confirmed by EVONNE HERNANDEZ, ARETHA ([id number]) on 05/16/2018 7:42:32 PM Referred By: CYNTHIA MACDONALD DR Confirmed By:ARETHA DOUGLASS MD
[2018-05-16] MEDS: ATORVASTATIN CA 40 MG TABLET (FP) PO SCH (21:26)
[2018-05-17] MEDS: INSULIN SLIDING SCALE (NOVOLOG) 1 VIAL SQ SCH ×2 (06:36→12:13)
[2018-05-17 07:00] LABS: BASO % 0.8 % (0-2.0); EOS % 2.4 % (0-4.5); HEMATOCRIT 25.9 % (32.4-45.2); HEMOGLOBIN 8.7 GM/dL (10.7-15.3); LYMPH % 19.1 % (8-40); MCHC 33.8 g/dl (32.0-36.0); MEAN CELL VOLUME 94.8 fl (80-96); MEAN PLT VOLUME 9.3 fl (7.5-11.1); MONO % 5.6 % (3.8-10.2); NEUT % 72.1 % (42.8-82.8); PLATELET COUNT 224 K/MM3 (134-434); RBC 2.73 M/mm3 (3.60-5.2); RDW 15.2 % (11.6-15.6); WHITE BLOOD COUNT 6.9 K/mm3 (4.0-10.0)
[2018-05-17 07:26] LABS: ALBUMIN 3.1 g/dl (3.4-5.0); ALK PHOS 190 U/L (45-117); ANION GAP 10 MMOL/L (8-16); BILIRUBIN,TOTAL 0.7 mg/dL (0.2-1); BLOOD UREA NITROGEN 47 mg/dL (7-18); CALCIUM 7.5 mg/dL (8.5-10.1); CHLORIDE 99 mmol/L (98-107); CO2 28 mmol/L (21-32); CREATININE 7.1 mg/dL (0.55-1.3); GLUCOSE,RANDOM 96 mg/dL (74-106); MAGNESIUM 2.4 mg/dL (1.8-2.4); PHOSPHOROUS 5.4 mg/dL (2.5-4.9); POTASSIUM 4.6 mmol/L (3.5-5.1); SGOT/AST 11 U/L (15-37); SGPT/ALT 13 U/L (13-61); SODIUM 137 mmol/L (136-145); TOT PROT 5.7 g/dl (6.4-8.2)
[2018-05-17] MEDS: POLYETHYLENE GLYCOL 3350 119 GM BTL PO SCH (10:47)
[2018-05-17] MEDS: CARVEDILOL 12.5 MG TABLET (FP) PO SCH (10:47)
[2018-05-17] MEDS: amLODIPine BESYLATE 5 MG TABLET (FP) PO SCH (10:47)
[2018-05-17] MEDS: PANTOPRAZOLE 20 MG TABLET (FP) PO SCH (10:47)
[2018-05-17 11:21] VITALS: BP 132/58; PULSE 72; TEMP 98.3
--- NOTE | 2018-05-17 14:21 | PN ---
Progress Note, Physician Chief Complaint: No complaints No chest pain No events on tele History of Present Illness: 72 year old female with a pmhx of htn, esrd on hd, CAD s/p CABG 2004 [facility], hld, dm, sbo s/p resection, and diastolic CHF who presents with palpitations/ dizziness and sob. Noted to have mild trend down in her Hgb along with bloody bowel movements. Recent lower GI bleed s/p colonoscopy 04/17/18 with diverticulosis and visible vessel in the cecum s/p endoclip. Planned for EGD. During dialysis today had some mild central chest pressure and headache. Self- resolved. No sob or diaphoresis at the time. Days she gets this occasional pain at dialysis and no other time. ET limited due to fatigue but no chest pain. Feels fine at this time. EKG sinus rhythm with nonspecific lateral T wave abnormalities. - Current Medication List Current Medications: Active Medications Acetaminophen (Tylenol -) 650 mg PO Q6H PRN PRN Reason: PAIN LEVEL 1-5 Amlodipine Besylate (Norvasc -) 5 mg PO DAILY [facility] Last Admin: 05/17/18 10:47 Dose: 5 mg Atorvastatin Calcium (Lipitor -) 40 mg PO HS [facility] Last Admin: 05/16/18 21:26 Dose: 40 mg Carvedilol (Coreg -) 12.5 mg PO BID [facility] Last Admin: 05/17/18 10:47 Dose: 12.5 mg Insulin Aspart (Novolog Vial Sliding Scale -) 1 vial SQ ACHS [facility]; Protocol Last Admin: 05/17/18 12:13 Dose: Not Given Pantoprazole Sodium (Protonix -) 20 mg PO DAILY [facility] Last Admin: 05/17/18 10:47 Dose: 20 mg Polyethylene Glycol (Miralax (For Daily Use) -) 17 gm PO DAILY [facility] Last Admin: 05/17/18 10:47 Dose: 17 grams - Objective Vital Signs: Vital Signs Temperature 98.3 F 05/17/18 10:00 Pulse Rate 72 05/17/18 10:00 Respiratory Rate 18 05/17/18 10:00 Blood Pressure 132/58 L 05/17/18 10:00 O2 Sat by Pulse Oximetry (%) 97 05/17/18 09:00 Constitutional: Yes: No Distress Neck: Yes: Supple Cardiovascular: Yes: Regular Rate and Rhythm, Murmur (+2/6 HSM), S1, S2 Respiratory: Yes: Diminished (at bases) Gastrointestinal: Yes: Soft Edema: No Labs: CBC, BMP 05/17/18 05:30 05/17/18 05:30 INR, PTT INR 0.96 (0.83-1.09) 05/12/18 19:54 Assessment/Plan 72 year old female with a pmhx of htn, esrd on hd, CAD s/p CABG 2004 [facility], hld, dm, sbo s/p resection, and diastolic CHF who presents with palpitations/ dizziness and sob. Noted to have mild trend down in her Hgb along with bloody bowel movements. Recent lower GI bleed s/p colonoscopy 04/17/18 with diverticulosis and visible vessel in the cecum s/p endoclip. Planned for EGD. During dialysis today had some mild central chest pressure and headache. Self- resolved. No sob or diaphoresis at the time. Days she gets this occasional pain at dialysis and no other time. ET limited due to fatigue but no chest pain. Feels fine at this time. EKG sinus rhythm with nonspecific lateral T wave abnormalities. 1) CAD -some mild chest pain during dialysis. No significant ekg ischemic changes in comparison to old ekg. CE's negative No events on tele -Continue statin Continue carvedilol dose. If blood pressure allows consider adding imdur to regimen (can always lower amlodipine to make room) Pursue GI work up to see if can restart aspirin. Would be beneficial cause will need ischemia work up in near future but would first need to know if any contraindication to aspirin/plavix. Please have patient follow up with Dr. Powell for possible outpatient ischemia work up after GI work up complete, anemia stable, and bp controlled with good volume level Also consider outpatient event monitor for history of palpitations Will sign off at this time. Can DC telemetry
--- NOTE | 2018-05-17 15:13 | PN ---
Teaching Attending Note Name of Resident: Karen Moura ATTENDING PHYSICIAN STATEMENT I saw and evaluated the patient. I reviewed the resident's note and discussed the case with the resident. I agree with the resident's findings and plan as documented. SUBJECTIVE: Patient is feeling better with no acute distress. OBJECTIVE: Vital Signs Temperature 98.3 F 05/17/18 10:00 Pulse Rate 72 05/17/18 10:00 Respiratory Rate 18 05/17/18 10:00 Blood Pressure 132/58 L 05/17/18 10:00 O2 Sat by Pulse Oximetry (%) 97 05/17/18 09:00 GENERAL: The patient is awake, alert, and fully oriented. with mild distress. HEAD: NCAT, EYES: PERRL, EOMI ENT: moist mucous membranes. NECK: Supple. No JVD LUNGS: Clear to auscultation bilaterally, no wheezes, no crackles HEART: Regular rate and rhythm, S1, S2 without murmur ABDOMEN: Soft, nontender, nondistended, + bowel sounds, no guarding EXTREMITIES: no edema. RUE Fistula with palpable thrill and Bruit on Auscultation NEUROLOGICAL: Cranial nerves II through XII grossly intact. Normal speech SKIN: Warm, dry. CBCD WBC 6.9 K/mm3 (4.0-10.0) 05/17/18 05:30 RBC 2.73 M/mm3 (3.60-5.2) L 05/17/18 05:30 Hgb 8.7 GM/dL (10.7-15.3) L 05/17/18 05:30 Hct 25.9 % (32.4-45.2) L 05/17/18 05:30 MCV 94.8 fl (80-96) 05/17/18 05:30 MCHC 33.8 g/dl (32.0-36.0) 05/17/18 05:30 RDW 15.2 % (11.6-15.6) 05/17/18 05:30 Plt Count 224 K/MM3 (134-434) 05/17/18 05:30 MPV 9.3 fl (7.5-11.1) 05/17/18 05:30 CMP Sodium 137 mmol/L (136-145) 05/17/18 05:30 Potassium 4.6 mmol/L (3.5-5.1) 05/17/18 05:30 Chloride 99 mmol/L (98-107) 05/17/18 05:30 Carbon Dioxide 28 mmol/L (21-32) 05/17/18 05:30 Anion Gap 10 MMOL/L (8-16) 05/17/18 05:30 BUN 47 mg/dL (7-18) H 05/17/18 05:30 Creatinine 7.1 mg/dL (0.55-1.3) H 05/17/18 05:30 Creat Clearance w eGFR 5.64 (>60) 05/17/18 05:30 Random Glucose 96 mg/dL (74-106) 05/17/18 05:30 Calcium 7.5 mg/dL (8.5-10.1) L 05/17/18 05:30 Total Bilirubin 0.7 mg/dL (0.2-1) 05/17/18 05:30 AST 11 U/L (15-37) L 05/17/18 05:30 ALT 13 U/L (13-61) 05/17/18 05:30 Alkaline Phosphatase 190 U/L (45-117) H 05/17/18 05:30 Total Protein 5.7 g/dl (6.4-8.2) L 05/17/18 05:30 Albumin 3.1 g/dl (3.4-5.0) L 05/17/18 05:30 CARDIAC ENZYMES Creatine Kinase 66 U/L (26-192) 05/16/18 23:10 Troponin I < 0.02 ng/ml (0.00-0.05) 05/16/18 23:10 Current Medications Generic Name Dose Route Start Last Admin Trade Name Freq PRN Reason Stop Dose Admin Acetaminophen 650 mg 05/16/18 18:53 Tylenol - PO Q6H PRN PAIN LEVEL 1-5 Amlodipine Besylate 5 mg 05/13/18 10:00 05/17/18 10:47 Norvasc - PO 5 mg DAILY [facility] Administration Atorvastatin Calcium 40 mg 05/13/18 22:00 05/16/18 21:26 Lipitor - PO 40 mg HS [facility] Administration Carvedilol 12.5 mg 05/13/18 10:00 05/17/18 10:47 Coreg - PO 12.5 mg BID [facility] Administration Insulin Aspart 1 vial 05/12/18 22:00 05/17/18 12:13 Novolog Vial Sliding Scale - SQ Not Given ACHS [facility] Protocol Pantoprazole Sodium 20 mg 05/13/18 11:00 05/17/18 10:47 Protonix - PO 20 mg DAILY [facility] Administration Polyethylene Glycol 17 gm 05/13/18 11:00 05/17/18 10:47 Miralax (For Daily Use) - PO 17 grams DAILY [facility] Administration Home Medications Medication Instructions Recorded Atorvastatin Ca [Lipitor] 40 mg PO DAILY 10/10/17 Carvedilol 12.5 mg PO BID #60 tablet 02/25/18 Amlodipine Besylate [Norvasc -] 2.5 mg PO DAILY #30 tablet 05/17/18 Isosorbide Mononitrate [Imdur -] 30 mg PO DAILY #30 tab.sr.24h 05/17/18 Pantoprazole Sodium [Protonix -] 40 mg PO DAILY #30 tablet.ec 05/17/18 Polyethylene Glycol 3350 [Miralax 17 gm PO DAILY #1 bottle 05/17/18 119 gm Btl -] Laboratory Tests 05/12/18 05/16/18 05/16/18 19:54 12:15 23:10 Troponin I < 0.02 < 0.02 < 0.02 ASSESSMENT AND PLAN: Patient is a 72yo lady with PMhx of recent lower GI bleed , ESRD (TTS), CAD, CABG, hyperlipidemia, chronic diastolic heart failure, anemia, CVA, diverticulosis who presented with SOB and rectal bleed , she was found ot have worsening of her chronic anemia. # Acute chest pain, troponins were negative , further w/u as an outpatient per cardio. please follow with within a week period. As per cardio. Ischemic w/u as an outpatient after GI w/u since might be needing to be on Plavix and aspirin. And aspirin is discontinued for patient having GIB now since having GI bleed, Gi is aware. # Acute on chronic symptomatic normocytic anemia: patient's EGD was cancelled due to having chest pain. patient continues to use her aspirin despite instructions to stop it last admission. she was instructed to stop it. # Acute SOB on HD due ESRD , lasix on Non HD days # HTN: cont coreg and norvasc # ESRD: on HD , nephro on the [facility] EGD as an outpatient follow with GI and follow with cardio for further w/u as an outpatient. will lower Norvasc to 2.5mg and add Imdur 30mg daily. to avoid chest pain in the future. ok'd per Cardio.
--- NOTE | 2018-05-17 15:29 | DS ---
Physical Exam: SUBJECTIVE: Patient seen and examined this AM. No new complaints. No acute overnight events as per nursing staff. OBJECTIVE: Vital Signs Period Temp Pulse Resp BP Sys/Rodriguez Pulse Ox Last 24 Hr 98 F-98.3 F 64-84 18-20 128-147/57-73 97-98 PHYSICAL EXAM GENERAL: The patient is awake, alert, and fully oriented, in no acute distress. HEAD: NCAT EYES: PERRL, EOMI ENT: moist mucous membranes. NECK: Supple. No JVD LUNGS: Clear to auscultation bilaterally, no wheezes, no crackles HEART: Regular rate and rhythm, S1, S2 without murmur ABDOMEN: Soft, nontender, nondistended, + bowel sounds, no guarding EXTREMITIES: no edema. RUE Fistula with palpable thrill and Bruit on Auscultation NEUROLOGICAL: Cranial nerves II through XII grossly intact. Normal speech SKIN: Warm, dry LABS Laboratory Results - last 24 hr 05/16/18 05/16/18 05/16/18 17:24 21:22 23:10 WBC RBC Hgb Hct MCV MCH MCHC RDW Plt Count MPV Absolute Neuts (auto) Neutrophils % Lymphocytes % Monocytes % Eosinophils % Basophils % Nucleated RBC % Sodium Potassium Chloride Carbon Dioxide Anion Gap BUN Creatinine Creat Clearance w eGFR POC Glucometer 152 148 Random Glucose Calcium Phosphorus Magnesium Total Bilirubin AST ALT Alkaline Phosphatase Creatine Kinase 66 Troponin I < 0.02 Total Protein Albumin 05/17/18 05/17/18 05/17/18 05:30 05:30 06:35 WBC 6.9 RBC 2.73 L Hgb 8.7 L Hct 25.9 L MCV 94.8 MCH 32.0 MCHC 33.8 RDW 15.2 Plt Count 224 MPV 9.3 Absolute Neuts (auto) 5.0 Neutrophils % 72.1 Lymphocytes % 19.1 Monocytes % 5.6 Eosinophils % 2.4 Basophils % 0.8 Nucleated RBC % 0 Sodium 137 Potassium 4.6 Chloride 99 Carbon Dioxide 28 Anion Gap 10 BUN 47 H Creatinine 7.1 H Creat Clearance w eGFR 5.64 POC Glucometer 100 Random Glucose 96 Calcium 7.5 L Phosphorus 5.4 H Magnesium 2.4 Total Bilirubin 0.7 AST 11 L ALT 13 Alkaline Phosphatase 190 H Creatine Kinase Troponin I Total Protein 5.7 L Albumin 3.1 L 05/17/18 12:12 WBC RBC Hgb Hct MCV MCH MCHC RDW Plt Count MPV Absolute Neuts (auto) Neutrophils % Lymphocytes % Monocytes % Eosinophils % Basophils % Nucleated RBC % Sodium Potassium Chloride Carbon Dioxide Anion Gap BUN Creatinine Creat Clearance w eGFR POC Glucometer 92 Random Glucose Calcium Phosphorus Magnesium Total Bilirubin AST ALT Alkaline Phosphatase Creatine Kinase Troponin I Total Protein Albumin Microbiology 05/12/18 19:54 Blood - Peripheral Venous Blood Culture - Final NO GROWTH AFTER 5 DAYS INCUBATION 05/12/18 19:54 Blood - Peripheral Venous Blood Culture - Final NO GROWTH AFTER 5 DAYS INCUBATION IMAGING: -UGIS: No evidence of abnormal dilatation of esophagus, or esophageal stricture. No gastric or duodenal bulb ulcer is seen within limitation of examination. -CXR: No acute chest pathology. Large heart. Previous O a chest. -EKG: NSR, VR 70, QTc 477 HOSPITAL COURSE: Date of Admission:05/12/18 Date of Discharge: 05/17/18 72 y/o F with PMHx of CAD (s/p CABG), ESRD (on HD //MON), DM, CHF, CVA, ventral hernia presented to the ED with complaints of palpitations/dizziness/ dyspnea after HD in addition to bloody bowel movements. Patient was found to have hgb of 7.9 and was transfused 1 unit pRBCs. Imaging and Micro noted above. GI was consulted initially and patient was scheduled for EGD however on the day of, patient experienced chest pain during a session of HD; Troponins and EKG were unrevealing. Cardiology was consulted and suggested outpatient ischemia work up. GI suggested an outpatient EGD. Patient continue her bowel regimen, was counselled to avoid ASA use and her bloody BM's resolved. She continued her HD during her stay. Her home medications were adjusted. Patient was discharged home with strict instructions to avoid ASA use, physician follow up, and medication adherence. Minutes to complete discharge: 36 Discharge Summary Reason For Visit: SHORTNESS OF BREATH Current Active Problems Decreased appetite (Acute) ESRD (end stage renal disease) (Acute) HTN (hypertension) (Acute) Rectal bleed (Acute) SOB (shortness of breath) (Acute) Condition: Stable - Instructions Diet, Activity, Other Instructions: You presented to the hospital for dizziness after bleeding from your rectum and were transfused one unit of blood. Medication Changes: 1. PLEASE STOP TAKING ASPIRIN UNTIL YOU HAVE FURTHER WORKUP WITH A INSIDE SALES PERSON since you were admitted with bleeding. 2. Your Amlodipine (Norvasc) dose is decreased to 2.5 mg Daily 3. Started a new medication Isosorbide mononitrate (Imdur) 30mg Daily for having chest pain 4. Continue Take Pantoprazole 40mg daily 5. Continue Miralax to help with constipation Follow up with the following physicians: 1. PCP in one week 2. Please schedule an appointment with GI (Dr. Vela) to further manage your bleeding. 3. Please follow up with Cardiology (Dr. Powell) to further manage your palpitations and chest pain, and further work up. Please continue to monitor your diet as you need to intake more fiber to help prevent further hemorrhoids. Continue all your other medications as prescribed Please return to the ER if you have any signs or symptoms of chest pain, shortness of breath, uncontrollable fever, chills, nausea, vomiting, numbness, tingling, or weakness in any part of your body, changes in vision, or slurred speech. Please return to the ER if symptoms persist, worsen, or new symptoms arise. Referrals: Aristides Vela DO [Staff Physician] - 1 Week Yash Powell MD [Staff Physician] - 1 Week Disposition: HOME - Home Medications Comprehensive Discharge Medication List: Ambulatory Orders Atorvastatin Ca [Lipitor] 40 mg PO DAILY 10/10/17 Carvedilol 12.5 mg PO BID #60 tablet 02/25/18 Amlodipine Besylate [Norvasc -] 2.5 mg PO DAILY #30 tablet 05/17/18 Isosorbide Mononitrate [Imdur -] 30 mg PO DAILY #30 tab.sr.24h 05/17/18 Pantoprazole Sodium [Protonix -] 40 mg PO DAILY #30 tablet.ec 05/17/18 Polyethylene Glycol 3350 [Miralax 119 gm Btl -] 17 gm PO DAILY #1 bottle This patient is new to me today: No Emergency Visit: Yes ED Registration Date: 05/15/18 Care time: The patient presented to the Emergency Department on the above date and was hospitalized for further evaluation of their emergent condition. Critical Care patient: No - Discharge Referral Referred to [facility] No
[2018-05-17] MEDS ORDERED: SODIUM CHLORIDE 250 ML IV PRN (15:33)
--- NOTE | 2018-05-17 15:33 | PN ---
Progress Note, Physician History of Present Illness: Pt seen and examined at bedside. SHe is awake and alert. She denies chest pain. - Current Medication List Current Medications: Active Medications Acetaminophen (Tylenol -) 650 mg PO Q6H PRN PRN Reason: PAIN LEVEL 1-5 Amlodipine Besylate (Norvasc -) 5 mg PO DAILY [facility] Last Admin: 05/17/18 10:47 Dose: 5 mg Atorvastatin Calcium (Lipitor -) 40 mg PO HS [facility] Last Admin: 05/16/18 21:26 Dose: 40 mg Carvedilol (Coreg -) 12.5 mg PO BID [facility] Last Admin: 05/17/18 10:47 Dose: 12.5 mg Insulin Aspart (Novolog Vial Sliding Scale -) 1 vial SQ ACHS [facility]; Protocol Last Admin: 05/17/18 12:13 Dose: Not Given Pantoprazole Sodium (Protonix -) 20 mg PO DAILY [facility] Last Admin: 05/17/18 10:47 Dose: 20 mg Polyethylene Glycol (Miralax (For Daily Use) -) 17 gm PO DAILY [facility] Last Admin: 05/17/18 10:47 Dose: 17 grams - Objective Vital Signs: Vital Signs Temperature 98.3 F 05/17/18 10:00 Pulse Rate 72 05/17/18 10:00 Respiratory Rate 18 05/17/18 10:00 Blood Pressure 132/58 L 05/17/18 10:00 O2 Sat by Pulse Oximetry (%) 97 05/17/18 09:00 Constitutional: Yes: Calm Eyes: Yes: Conjunctiva Clear HENT: Yes: Atraumatic Cardiovascular: Yes: S1, S2 Respiratory: Yes: CTA Bilaterally Gastrointestinal: Yes: Soft Genitourinary: Yes: WNL Musculoskeletal: Yes: WNL Edema: No Neurological: Yes: Oriented Psychiatric: Yes: Oriented Labs: CBC, BMP 05/17/18 05:30 05/17/18 05:30 INR, PTT INR 0.96 (0.83-1.09) 05/12/18 19:54 Assessment/Plan Current Medications Generic Name Dose Route Start Last Admin Trade Name Freq PRN Reason Stop Dose Admin Acetaminophen 650 mg 05/16/18 18:53 Tylenol - PO Q6H PRN PAIN LEVEL 1-5 Amlodipine Besylate 5 mg 05/13/18 10:00 05/17/18 10:47 Norvasc - PO 5 mg DAILY [facility] Administration Atorvastatin Calcium 40 mg 05/13/18 22:00 05/16/18 21:26 Lipitor - PO 40 mg HS [facility] Administration Carvedilol 12.5 mg 05/13/18 10:00 05/17/18 10:47 Coreg - PO 12.5 mg BID [facility] Administration Insulin Aspart 1 vial 05/12/18 22:00 05/17/18 12:13 Novolog Vial Sliding Scale - SQ Not Given ACHS [facility] Protocol Pantoprazole Sodium 20 mg 05/13/18 11:00 05/17/18 10:47 Protonix - PO 20 mg DAILY [facility] Administration Polyethylene Glycol 17 gm 05/13/18 11:00 05/17/18 10:47 Miralax (For Daily Use) - PO 17 grams DAILY [facility] Administration Impression 1. ESRD 2. dyspnea 3. CAD 4. HTN 5. DM 6. anemia 7. hx syncope 8. 1.4 cm left adrenal adenoma 9. hyperkalemia 10. chest pain Plan - HD tomorrow - bp is improved - cardio workup negative so far, cardio follow up - renal diet - will evaluate for HD daily - cxr reviewed
--- NOTE | 2018-05-17 15:35 | ECHO ---
Name: CHINO BATES Exam:Adult Echocardiogram Study Date: 05/17/2018 11:14 AM Age: 72 yrs Reason For Study: evaluate for LV dysfunction Height: 62 in Weight: 171 lb BSA: 1.8 m2 Procedure A complete two-dimensional transthoracic echocardiogram was performed (2D, M-mode, Doppler and color flow Doppler). Left Ventricle The left ventricular size, thickness and function are normal. The left ventricular ejection fraction is normal. Ejection Fraction = 55-60%. The left ventricular wall motion is normal. Right Ventricle The right ventricle is normal in size and function. Atria The left atrium is moderately dilated. Right atrial size is normal. Mitral Valve There is trace mitral regurgitation. Tricuspid Valve There is trace tricuspid regurgitation. Right ventricular systolic pressure is normal. Aortic Valve No hemodynamically significant valvular aortic stenosis. No aortic regurgitation is present. Pulmonic Valve There is no pulmonic valvular regurgitation. Great Vessels The aortic root is normal size. Pericardium/Pleura There is no pericardial effusion. Interpretation Summary The left ventricular size, thickness and function are normal The right ventricle is normal in size and function. The left atrium is moderately dilated. There is trace mitral regurgitation. There is trace tricuspid regurgitation. MD Haroldo Villalba 05/17/2018 03:35 PM
[2018-05-18 13:21] LABS: HBSAG SCREEN Negative (Negative); HEP A AB, IGM Negative (Negative); HEP B CORE AB, TOT Negative (Negative)
[2018-05-18] MEDS ORDERED: EPOETIN ALFA 2,000 UNIT/1 ML VIAL IVPUSH ONE (15:33)
--- NOTE | 2018-05-24 12:10 | EKG ---
Test Reason : Blood Pressure : / mmHG Vent. Rate : 073 BPM Atrial Rate : 073 BPM P-R Int : 202 ms QRS Dur : 106 ms QT Int : 452 ms P-R-T Axes : 016 012 215 degrees QTc Int : 497 ms POOR DATA QUALITY, INTERPRETATION MAY BE ADVERSELY AFFECTED NORMAL SINUS RHYTHM ABNORMAL ECG WHEN COMPARED WITH ECG OF 16-MAY-2018 15:15, PREMATURE VENTRICULAR COMPLEXES ARE NO LONGER PRESENT NONSPECIFIC T WAVE ABNORMALITY, WORSE IN INFERIOR LEADS Confirmed by NORMA BUSTOS MD ([id number]) on 05/24/2018 12:10:46 PM Referred By: Confirmed By:NORMA BUSTOS MD
== END 2018-05-17 16:43 | disposition home or self-care (01) | DRG 253 ==
LOC: JER 17:43 → JERBED 21:21 → J6S 05-13 18:55 → OBSVTOIN 05-15 17:47 → J4W 05-16 13:49
PROVIDERS: ADMIT Internal Medicine; ATTEND Internal Medicine
PROC: 5A1D70Z Performance of Urinary Filtration, Intermittent, Less than 6 Hours Per Day (ICD-10-PCS; principal; 2018-05-14)
PROC: 5A1D70Z Performance of Urinary Filtration, Intermittent, Less than 6 Hours Per Day (ICD-10-PCS; 2018-05-16)
DX: K62.5 Hemorrhage of anus and rectum (principal); I25.10 Atherosclerotic heart disease of native coronary artery without angina pectoris; I13.2 Hypertensive heart and chronic kidney disease with heart failure and with stage 5 chronic kidney disease, or end stage renal disease; E11.22 Type 2 diabetes mellitus with diabetic chronic kidney disease; N18.6 End stage renal disease; I50.22 Chronic systolic (congestive) heart failure; E78.5 Hyperlipidemia, unspecified; K57.90 Diverticulosis of intestine, part unspecified, without perforation or abscess without bleeding; D64.9 Anemia, unspecified; K43.9 Ventral hernia without obstruction or gangrene; M54.5 Low back pain; F41.9 Anxiety disorder, unspecified; I25.2 Old myocardial infarction; R63.0 Anorexia; Z68.31 Body mass index [BMI] 31.0-31.9, adult; D35.02 Benign neoplasm of left adrenal gland; E87.5 Hyperkalemia; R11.0 Nausea; R07.89 Other chest pain; Z86.73 Personal history of transient ischemic attack (TIA), and cerebral infarction without residual deficits; Z95.1 Presence of aortocoronary bypass graft; Z99.2 Dependence on renal dialysis
CPT/HCPCS: 36415; 36430; 36511; 71045-TC-FY; 74240-TC-FY; 80048; 80053; 82272; 82550; 82962; 83605; 83735; 84100; 84484; 85025; 85027; 85610; 86704; 86706; 86708; 86803; 86850; 86900; 86901; 86922; 87040; 87340; 93005; 93010; 93306-TC; 99285-25; G0378; P9038; P9058

== ENCOUNTER 2018-06-26 08:27 | Inpatient (IN) | payer OTHER ==
--- NOTE | 2018-06-26 08:52 | PDOC ---
History of Present Illness - General Chief Complaint: Chest Pain Stated Complaint: CHEST PAIN Time Seen by Provider: 06/26/18 08:30 History Source: Patient Exam Limitations: No Limitations - History of Present Illness Initial Comments: 06/26/18 08:34 72YOF with h/o ESRD on HD (//Mon, no recent missed tx), CAD (MD >10 years ago and CABG >10 years ago), CHF, CVA, and ventral hernia who p/w sharp left- sided chest pain radiating to the left upper back, onset 1.5 hours into her normally 3-hour dialysis tx this morning. They needed to stop HD and EMS brought her here. They administered 324 ASA en route. The patient states this is similar to her prior episodes of chest pain, but she has never had it happen during HD. She initially had associated mild lightheadedness but this has resolved. Denies any recent f/c/n/v/d/c, abdominal pain, LOC, SOB, or other symptoms. Past History - Past Medical History Allergies/Adverse Reactions: Allergies Allergy/AdvReac Type Severity Reaction Status Date / Time No Known Allergies Allergy Verified 06/26/18 08:49 Home Medications: Ambulatory Orders Aspirin [Aspirin EC] 81 mg PO DAILY 06/26/18 Calcium Carbonate [Tums] 500 mg PO DAILY 06/26/18 Carvedilol [Coreg -] 6.25 mg PO DAILY 06/26/18 Cholecalciferol (Vitamin D3) [Vitamin D3] 1,000 unit PO BID 06/26/18 Anemia: No Asthma: No Cardiac Disorders: Yes (CAD, CABG) CVA: Yes (CVA) COPD: No CHF: No Dementia: No Diabetes: Yes Dialysis: Yes (, , mon) GI Disorders: Yes (HERNIA, small bowel resection) Disorders: No HTN: Yes Hypercholesterolemia: Yes Liver Disease: No Seizures: No Thyroid Disease: No - Surgical History Abdominal Surgery: No Appendectomy: No Cardiac Surgery: Yes (BYPASS) Cholecystectomy: No Lung Surgery: No Neurologic Surgery: No Orthopedic Surgery: No - Immunization History Td Vaccination: (UNKNOWN) Immunization Up to Date: Yes (FLU AND PNA) - Suicide/Smoking/Psychosocial Hx Smoking Status: No Smoking History: Never smoked Have you smoked in the past 12 months: No Number of Cigarettes Smoked Daily: 0 Cigars Per Day: 0 Hx Alcohol Use: No Drug/Substance Use Hx: No Substance Use Type: None Hx Substance Use Treatment: No Cardiac Specific PMH - Complaint Specific PMHX Pacemaker: No Review of Systems - Review of Systems Able to Perform ROS?: Yes Comments:: 06/26/18 08:45 GEN: no fever, chills, malaise, generalized weakness, or weight change HEENT: no ear pain, sore throat, vision change, or eye pain CV: chest pain, lightheadedness, no palpitations, syncope, or edema RESP: no cough, wheezing, or SOB GI: no abdominal pain, nausea, vomiting, diarrhea, constipation, or white/black/ bloody stool : no dysuria, hematuria, incontinence, retention, bleeding, or discharge MSK: back pain, no neck pain, muscle weakness/pain, or joint swelling/pain NEURO: no headache, seizure, vertigo, numbness, tingling, or focal weakness PSYCH: no substance use, no behavior change SKIN: no jaundice, no rash ROS otherwise negative except as noted in HPI *Physical Exam - Vital Signs Last Vital Signs Temp Pulse Resp BP Pulse Ox 97.6 F 70 18 159/79 97 06/27/18 14:10 06/27/18 14:10 06/27/18 14:10 06/27/18 14:10 06/26/18 22:00 Initial Vital Signs Temp Pulse Resp BP Pulse Ox 98.2 F 70 16 137/69 100 06/26/18 08:30 06/26/18 08:30 06/26/18 08:30 06/26/18 08:30 06/26/18 08:30 - Physical Exam Comments: 06/26/18 08:38 GENERAL: tired but well-appearing, A/Ox4, no distress, answers questions appropriately, obese, U[place]bek-speaking HEENT: PERRLA, EOMI, moist mucous membranes NECK/BACK: no midline ttp, no spinal stepoff or deformity, no hematoma, full ROM , neck supple CARDIOVASCULAR: regular rate/rhythm, normal S1S2, no MGR, strong peripheral pulses, capillary refill <2 seconds, extremities wwp, no edema, dialysis AV fistula in RUE with good bruit and thrill covered in dressing CHEST WALL: No tenderness to compression LUNGS/RESPIRATORY: no respiratory distress, CTAB GI/ABDOMEN: large ventral hernia, normoactive BS, soft, no ttp, no midline pulsatile masses : no CVA tenderness EXTREMITIES: no muscle atrophy, no acute deformity, no calf tenderness or swelling or palpable cords SKIN: warm and dry, no pallor, no jaundice, no rash, no bruising, no skin breakdown, no cuts, no lesions NEUROLOGICAL: GCS 15, CN II-XII grossly intact, 5/5 strength proximally and distally, no facial droop Heart Score/ECG Review - History History: Moderately suspicious - Electrocardiogram EKG: Normal - Age Age: >/= 65 - Risk Factors Risk Factors Heart Score: Yes Hx Hypercholesterolemia, Yes Hx Hypertension, Yes Positive family hx of cardiac disease, Yes Hx Obesity Based on the list above the patient has:: >/=3 risk factors or Hx atherosclerotic disease #2 06/26/18 09:41 NSR, rate 69, prolonged WPa=414qi, normal axis, no Q waves inferiorly and TW flattening in III and aVF similar to prior. #1 SR, rate 69, QTc 497, normal axis, old q waves in III, otherwise no ischemic ST- T changes ED Treatment Course - LABORATORY CBC & Chemistry Diagram: 06/27/18 13:51 06/26/18 09:11 - ADDITIONAL ORDERS Additional order review: 06/26/18 06/26/18 19:08 09:11 RBC 2.70 L MCV 94.8 MCHC 33.4 RDW 15.0 MPV 9.2 Neutrophils % 73.9 Lymphocytes % 16.4 Monocytes % 6.4 Eosinophils % 2.6 Basophils % 0.7 POC Glucometer 156 - RADIOLOGY Radiology Studies Ordered: Category Date Time Status CHEST X-RAY PORTABLE* [RAD] Stat Radiology 06/26/18 08:55 Completed - Medications Given in the ED: ED Medications Discontinued Medications Generic Name Dose Route Start Last Admin Trade Name Freq PRN Reason Stop Dose Admin Aminophylline 25 mg 06/27/18 11:15 06/27/18 11:02 Aminophylline Injection - IVPUSH 06/27/18 11:16 25 mg ONCE ONE Administration Heparin Sodium (Porcine) 5,000 unit 06/26/18 22:00 06/27/18 06:08 Heparin - SQ 5,000 unit TID GRAYSON Administration Isosorbide Mononitrate 30 mg 06/26/18 19:30 06/26/18 19:32 Imdur - PO 06/26/18 19:31 30 mg ONCE ONE Administration Metoprolol Tartrate 5 mg 06/27/18 11:15 06/27/18 11:04 Lopressor Injection - IVPUSH 06/27/18 11:16 5 mg ONCE ONE Administration Morphine Sulfate 2 mg 06/26/18 08:56 06/26/18 09:45 Morphine Injection - IVPUSH 06/26/18 08:57 Not Given ONCE ONE Nitroglycerin 0.4 mg 06/27/18 11:00 06/27/18 11:04 Nitrostat - SL 06/27/18 11:01 0.4 mg ONCE ONE Administration Regadenoson 0.4 mg 06/27/18 10:00 06/27/18 10:55 Lexiscan IVPUSH 06/27/18 10:01 0.4 mg ONCE ONE Administration Medical Decision Making - Medical Decision Making 06/26/18 08:45 72YOF with ESRD CAD CABG Cath last year, who p/w chest pain during HD treatment. Patient states she still has residual left-sided chest pain radiating to the left back. Initial Vital Signs Temp Pulse Resp BP Pulse Ox 98.2 F 70 16 137/69 100 06/26/18 08:30 06/26/18 08:30 06/26/18 08:30 06/26/18 08:30 06/26/18 08:30 Exam: As noted in Physical Exam section. DDX IBNLT: ACS, pericarditis, tamponade, aortic dissection, AAA, PTX, PE, esophageal tear, esophagitis (e.g. pill, infectious), esophageal stricture, esophageal FB, gastritis, PUD, pancreatitis, cholecystitis, cholangitis, colitis , bowel perforation, PNA/bronchitis, pleurisy, pleuritis, MVP, pulmonary HTN, musculoskeletal, panic/anxiety, etc. W/U ordered: Labs, EKG, CXR. TX ordered: monitor, O2 via NC if needed 06/26/18 08:58 Patient states she is pain-free at this time. EKG: Reviewed; results as noted in ECG Review section. CXR: mild pulmonary vascular congestion, sternal wires noted. Laboratory Tests 06/26/18 06/26/18 06/26/18 09:11 09:11 09:11 WBC 6.0 RBC 2.70 L Hgb 8.5 L Hct 25.6 L MCV 94.8 MCH 31.6 MCHC 33.4 RDW 15.0 Plt Count 265 MPV 9.2 Absolute Neuts (auto) 4.4 Neutrophils % 73.9 Lymphocytes % 16.4 Monocytes % 6.4 Eosinophils % 2.6 Basophils % 0.7 Nucleated RBC % 0 PT with INR 12.00 INR 1.02 PTT (Actin FS) 34.9 Sodium 136 Potassium 4.1 Chloride 100 Carbon Dioxide 26 Anion Gap 10 BUN 52 H Creatinine 5.5 H Est GFR (CKD-EPI)AfAm 8.18 Est GFR (CKD-EPI)NonAf 7.06 POC Glucometer Random Glucose 158 H Calcium 7.5 L Phosphorus 3.1 Magnesium 2.4 Total Bilirubin 0.2 AST 16 ALT 19 Alkaline Phosphatase 186 H Creatine Kinase 58 Troponin I < 0.02 Total Protein 6.1 L Albumin 3.2 L Lipase 272 06/26/18 06/26/18 06/26/18 16:25 19:08 21:30 WBC RBC Hgb Hct MCV MCH MCHC RDW Plt Count MPV Absolute Neuts (auto) Neutrophils % Lymphocytes % Monocytes % Eosinophils % Basophils % Nucleated RBC % PT with INR INR PTT (Actin FS) Sodium Potassium Chloride Carbon Dioxide Anion Gap BUN Creatinine Est GFR (CKD-EPI)AfAm Est GFR (CKD-EPI)NonAf POC Glucometer 156 Random Glucose Calcium Phosphorus Magnesium Total Bilirubin AST ALT Alkaline Phosphatase Creatine Kinase Cancelled 53 Troponin I Cancelled < 0.02 Total Protein Albumin Lipase ADMIT Repeat cardiac enzymes ordered. HEART score indicated Pt is high risk, should be managed in hospital with cardiology consult. The Pt is unsafe for discharge at this time. They require further hospital observation, workup, and treatment. Microblog sent to [facility] for admission. Blank Decision to Admit order is placed per ED protocol. *DC/Admit/Observation/Transfer Diagnosis at time of Disposition: Chest pain, End stage renal disease - Discharge Dispostion Condition at time of disposition: Guarded Decision to Admit order: Yes - Referrals - Patient Instructions - Post Discharge Activity
[2018-06-26] MEDS ORDERED: morphine CARPU-JECT 2 MG/1 ML DISP.SYRIN IVPUSH ONE (08:56)
--- NOTE | 2018-06-26 09:24 | PDOC ---
Attending Attestation - Resident Resident Name: GayleRosi - ED Attending Attestation I have performed the following: I have examined & evaluated the patient, The case was reviewed & discussed with the resident, I agree w/resident's findings & plan - HPI HPI: 06/26/18 09:19 72-year-old female with history of hypertension, end-stage renal disease on Monday//Monday dialysis presents from dialysis where she was going through completion complaining of chest pain. No other associated symptoms, chest pain has resolved. Had CABG 2004, reports a catheterization last year but does not know results or whether any interventions occurred - no additional info in cards note from - Physicial Exam PE: 06/26/18 09:24 VSS well appearing in nad heart regular, lungs clear RUE fistula no edema/calf ttp - Medical Decision Making 06/26/18 09:24 72-year-old female with history of known CAD presents with otherwise atypical chest pain during dialysis, hemodynamically stable here with resolved symptoms. Stat EKG normal, compared to prior EKGs from May there is some pseudonormalization of lateral T-wave changes that were variably seen Needs cardiac workup, chest x-ray Aspirin Admission to telemetry Heart Score/ECG Review #1 ECG reviewed & interpreted by me at: 08:31 General ECG Interpretation: Sinus Rhythm, Normal Rate (72), Normal Intervals ( qtc 512), No acute ischemic changes Compared to previous ECG there are: Changes noted (c/w 05/12-12/25, normalization of lateral TWI) #2 ECG reviewed & interpreted by me at: 09:41 General ECG Interpretation: Sinus Rhythm, Normal Rate (69), Normal Intervals ( qtc 497), No acute ischemic changes Compared to previous ECG there are: No significant change
[2018-06-26] MEDS ORDERED: MORPHINE SULFATE 2 MG/ML VIAL ONE (09:26)
[2018-06-26 09:38] LABS: BASO % 0.7 % (0-2.0); EOS % 2.6 % (0-4.5); HEMATOCRIT 25.6 % (32.4-45.2); HEMOGLOBIN 8.5 GM/dL (10.7-15.3); LYMPH % 16.4 % (8-40); MCH 31.6 pg (25.7-33.7); MCHC 33.4 g/dl (32.0-36.0); MEAN CELL VOLUME 94.8 fl (80-96); MEAN PLT VOLUME 9.2 fl (7.5-11.1); MONO % 6.4 % (3.8-10.2); NEUT % 73.9 % (42.8-82.8); PLATELET COUNT 265 K/MM3 (134-434)
[2018-06-26 09:55] LABS: INR 1.02 (0.83-1.09)
[2018-06-26 09:58] LABS: ACTIVATED PTT 34.9 SECONDS (25.2-36.5)
[2018-06-26 10:12] LABS: ALBUMIN 3.2 g/dl (3.4-5.0); ALK PHOS 186 U/L (45-117); ANION GAP 10 MMOL/L (8-16); BILIRUBIN,TOTAL 0.2 mg/dL (0.2-1); BLOOD UREA NITROGEN 52 mg/dL (7-18); CALCIUM 7.5 mg/dL (8.5-10.1); CHLORIDE 100 mmol/L (98-107); CO2 26 mmol/L (21-32); CREATININE 5.5 mg/dL (0.55-1.3); GLUCOSE,RANDOM 158 mg/dL (74-106); LIPASE 272 U/L (73-393); MAGNESIUM 2.4 mg/dL (1.8-2.4); PHOSPHOROUS 3.1 mg/dL (2.5-4.9); POTASSIUM 4.1 mmol/L (3.5-5.1); SGOT/AST 16 U/L (15-37); SGPT/ALT 19 U/L (13-61); SODIUM 136 mmol/L (136-145); TOT PROT 6.1 g/dl (6.4-8.2)
--- NOTE | 2018-06-26 12:14 | HP ---
CHIEF COMPLAINT: Chest pain PCP: Dr. Ricco Moffett HISTORY OF PRESENT ILLNESS: 72yo F with significant history of ESRD on HD () and known CAD s/p CABG who presents to the ED once more for anterior/substernal chest pain described as pressure during dialysis. Pt reports she experienced the pain suddenly and had it radiate to the back. Pt reports experiencing the pain for 5 minutes and then she began to feel lightheaded. HD was terminated at 1.5/3hrs and EMS brought pt to ER for further evaluation. En route pt received ASA 325mg PO once. Pt currently denies any symptoms at this time with complete resolution of her symptoms during dialysis. During last hospital visit pt was recommended to see cardiology for outpatient follow-up of ischemic workup unless symptoms persisted. Pt has not had an appointment with cardiology inbetween then (05/17/18 ) and now. Pt denies any WHALEN, lightheadedness, diplopia, jaw claudication, diaphoresis, f/c/n/v/diarrhea/constipation, shortness of breath, palpitations, abdominal pain, pain from fistula. Recent Travel: Denies PAST MEDICAL HISTORY: ESRD Chronic anemia CAD s/p CABG Prior CVA PAST SURGICAL HISTORY: CABG R wrist AVF creation Ventral Hernia repair Social History: Smoking: Denies Alcohol: Denies Drugs: Denies Lives with family at home; ambulates with walker regularly Family History: Allergies No Known Allergies Allergy (Verified 06/26/18 08:49) HOME MEDICATIONS: Home Medications Medication Instructions Recorded Aspirin [Aspirin EC] 81 mg PO DAILY 06/26/18 Calcium Carbonate [Tums] 500 mg PO DAILY 06/26/18 Carvedilol [Coreg -] 6.25 mg PO DAILY 06/26/18 Cholecalciferol (Vitamin D3) 1,000 unit PO BID 06/26/18 [Vitamin D3] REVIEW OF SYSTEMS As per HPI PHYSICAL EXAMINATION Vital Signs 06/26/18 08:30 Temperature 98.2 F Pulse Rate 70 Respiratory 16 Rate Blood Pressure 137/69 O2 Sat by Pulse 100 Oximetry (%) GENERAL: NAD, Awake, alert, and fully oriented HEENT: NC/AT, KAYLA, sclera anicteric, MMM Neck: No JVD appreciated, no carotid bruits LUNGS: CTA bilaterally. No wheezes, and no crackles. No accessory muscle use. HEART: RRR, normal S1 and S2 without murmur. No reproducible CP with palpation ABDOMEN: Soft, NT/ND, normoactive bowel sounds, no guarding EXTREMITIES: R wrist AVF noted with palpable thrill; bandage in place without blood noted, warm, No calf tenderness. No peripheral edema. PSYCHIATRIC: Cooperative. Good eye contact. Appropriate mood and affect. SKIN: Warm, dry, no rashes Laboratory Results 06/26/18 06/26/18 06/26/18 09:11 09:11 09:11 WBC 6.0 RBC 2.70 L Hgb 8.5 L Hct 25.6 L MCV 94.8 MCH 31.6 MCHC 33.4 RDW 15.0 Plt Count 265 MPV 9.2 Absolute Neuts (auto) 4.4 Neutrophils % 73.9 Lymphocytes % 16.4 Monocytes % 6.4 Eosinophils % 2.6 Basophils % 0.7 Nucleated RBC % 0 PT with INR 12.00 INR 1.02 PTT (Actin FS) 34.9 Sodium 136 Potassium 4.1 Chloride 100 Carbon Dioxide 26 Anion Gap 10 BUN 52 H Creatinine 5.5 H Est GFR (CKD-EPI)AfAm 8.18 Est GFR (CKD-EPI)NonAf 7.06 Random Glucose 158 H Calcium 7.5 L Phosphorus 3.1 Magnesium 2.4 Total Bilirubin 0.2 AST 16 ALT 19 Alkaline Phosphatase 186 H Creatine Kinase 58 Troponin I < 0.02 Total Protein 6.1 L Albumin 3.2 L Lipase 272 ASSESSMENT/PLAN: Chest pain likely 2/2 to coronary vasospasm Normocytic Anemia 2/2 to chronic disease ESRD --Given 2nd time during dialysis and previous recommendation for ischemic workup will observe her and perform stress test this visit --SL Nitro ordered for PRN chest pain with BP parameters --Continue Asa 81mg qdail --Continue Coreg 6.25mg BID PO -- --Anemia at baseline and pt asymptomatic --Does not qualify for erythrocyte stimulating agents at this point --Monitor H/H --Dr. Mosquera consulted for dialysis needs (//) --Only finished 1.5/3 hrs of dialysis --No indications for emergent dialysis FEN: Fluids: None indicated Electrolyte abnormalities: Corrected Ca slightly low at 8.17; pt already on CaCarbonate supplementation (to continue) Nutrition: Renal diet PPX: DVT - Low risk for observation stay Medications Confirmed Dispo: Tele obs; stress testing Case discussed with Dr. Kadie Barajas, DO - IM PGY-2 Visit type - Emergency Visit Emergency Visit: Yes ED Registration Date: 06/26/18 Care time: The patient presented to the Emergency Department on the above date and was hospitalized for further evaluation of their emergent condition. - New Patient This patient is new to me today: Yes Date on this admission: 06/26/18 - Critical Care Critical Care patient: No
--- NOTE | 2018-06-26 13:03 | CONSULT ---
Consult Consult Specialty:: Nephrology Reason for Consultation:: ESRD - History of Present Illness Chief Complaint: chest pain History of Present Illness: Pt is a 72 year old female with pmhx of ESRD, CAD, CABG, CHF< CVA, and hernia who presented to the ER with left sided chest pain. She started to have the pain at about 1 and a half hours into dialysis. HD was stopped and she was sent to ER. She feels that the pain is improved now. She denies shortness of breath. She denies fevers or chills. 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 Cardio/Vascular: Yes: CAD, CHF, HTN, PR, Hyperlipdemia Gastrointestinal: Yes: Diverticulosis Renal/: Yes: Renal Failure, Hemodialysis Psych: Yes: Anxiety Musculoskeletal: Yes: Chronic low back pain Endocrine: Yes: Diabetes Mellitus - Past Surgical History Past Surgical History: Yes: AV Fistula/Graft, CABG - Alcohol/Substance Use Hx Alcohol Use: No History of Substance Use: reports: None - Smoking History Smoking history: Never smoked Have you smoked in the past 12 months: No Aproximately how many cigarettes per day: 0 - Social History Usual Living Arrangement: With Child ADL: Independent History of Recent Travel: No Home Medications - Allergies Allergies/Adverse Reactions: Allergies Allergy/AdvReac Type Severity Reaction Status Date / Time No Known Allergies Allergy Verified 06/26/18 08:49 - Home Medications Home Medications: Ambulatory Orders Aspirin [Aspirin EC] 81 mg PO DAILY 06/26/18 Calcium Carbonate [Tums] 500 mg PO DAILY 06/26/18 Carvedilol [Coreg -] 6.25 mg PO DAILY 06/26/18 Cholecalciferol (Vitamin D3) [Vitamin D3] 1,000 unit PO BID 06/26/18 Family Disease History - Family Disease History Family History: Denies Review of Systems - Review of Systems Constitutional: reports: Malaise Eyes: reports: No Symptoms HENT: reports: No Symptoms Cardiovascular: reports: Chest Pain. denies: Edema Respiratory: denies: SOB Gastrointestinal: reports: No Symptoms Genitourinary: reports: No Symptoms Musculoskeletal: reports: No Symptoms Integumentary: reports: No Symptoms Neurological: reports: No Symptoms Endocrine: reports: No Symptoms Hematology/Lymphatic: reports: No Symptoms Psychiatric: reports: No Symptoms Physical Exam Vital Signs: Vital Signs Temperature 98.2 F 06/26/18 08:30 Pulse Rate 70 06/26/18 08:30 Respiratory Rate 16 06/26/18 08:30 Blood Pressure 137/69 06/26/18 08:30 O2 Sat by Pulse Oximetry (%) 100 06/26/18 08:30 Constitutional: Yes: Calm Eyes: Yes: Conjunctiva Clear HENT: Yes: Atraumatic Neck: Yes: Supple Cardiovascular: Yes: S1, S2 Respiratory: Yes: CTA Bilaterally Gastrointestinal: Yes: Soft Renal/: Yes: WNL Musculoskeletal: Yes: WNL Edema: No Neurological: Yes: Oriented Psychiatric: Yes: Oriented Labs: CBC, BMP 06/26/18 09:11 06/26/18 09:11 Laboratory Tests 06/26/18 06/26/18 09:11 09:11 WBC 6.0 Hgb 8.5 L Plt Count 265 Sodium 136 Potassium 4.1 Carbon Dioxide 26 Anion Gap 10 BUN 52 H Creatinine 5.5 H Imaging - Results Chest X-ray: Report Reviewed Problem List - Problems (1) Chest pain Code(s): R07.9 - CHEST PAIN, UNSPECIFIED (2) ESRD (end stage renal disease) Code(s): N18.6 - END STAGE RENAL DISEASE Assessment/Plan Current Medications Generic Name Dose Route Start Last Admin Trade Name Freq PRN Reason Stop Dose Admin Aspirin 81 mg 06/27/18 10:00 Ecotrin - PO DAILY GRAYSON Carvedilol 6.25 mg 06/27/18 10:00 Coreg - PO DAILY GRAYSON Nitroglycerin 0.4 mg 06/26/18 12:02 Nitrostat - SL Q5M PRN FOR CHEST PAIN Impression 1. ESRD 2. chest pain 3. CAD 4. HTN 5. DM 6. anemia 7. hx syncope 8. 1.4 cm left adrenal adenoma Plan - potassium stable, she had 1.5 hrs of hd today - cardio eval for chest pain - will evaluate for HD tomorrow - renal diet once eating - will need cardiac monitoring
--- NOTE | 2018-06-26 13:18 | CON.CARD ---
Consult Consult Specialty:: Cardiology Referred by:: ER Reason for Consultation:: chest pain, sob - History of Present Illness Chief Complaint: chest pain, sob History of Present Illness: 72 year old woman with a pmhx of htn, esrd on hd, CAD s/p CABG 2004 [facility], hld, dm, sbo s/p resection, chronic diastolic CHF, prior LGIB s/p colonoscopy showing diverticulosis with visible vessel in cecum s/p clip, prior admissions for palpitations/dizziness, sob, sent from HD today after developed sudden onset chest pain radiating to the back with associated lightheadedness after 1.5/3hrs of HD today. Pt seen and examined in the ER, appears sob. denies any current chest pain. After last admission pt was recommened to fup in the office to consider an ischemic work up after her GI work up was complete. 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 Cardio/Vascular: Yes: CAD, CHF, HTN, AR, Hyperlipdemia Gastrointestinal: Yes: Diverticulosis Renal/: Yes: Renal Failure, Hemodialysis Psych: Yes: Anxiety Musculoskeletal: Yes: Chronic low back pain Endocrine: Yes: Diabetes Mellitus - Past Surgical History Past Surgical History: Yes: AV Fistula/Graft, CABG - Alcohol/Substance Use Hx Alcohol Use: No History of Substance Use: reports: None - Smoking History Smoking history: Never smoked Have you smoked in the past 12 months: No Aproximately how many cigarettes per day: 0 - Social History Usual Living Arrangement: With Child ADL: Independent History of Recent Travel: No Home Medications - Allergies Allergies/Adverse Reactions: Allergies Allergy/AdvReac Type Severity Reaction Status Date / Time No Known Allergies Allergy Verified 06/26/18 08:49 - Home Medications Home Medications: Ambulatory Orders Aspirin [Aspirin EC] 81 mg PO DAILY 06/26/18 Calcium Carbonate [Tums] 500 mg PO DAILY 06/26/18 Carvedilol [Coreg -] 6.25 mg PO DAILY 06/26/18 Cholecalciferol (Vitamin D3) [Vitamin D3] 1,000 unit PO BID 06/26/18 Family Disease History - Family Disease History Family History: Denies Review of Systems - Review of Systems Constitutional: denies: No Symptoms, Chills, Diaphoresis, Fever, Lethargy, Loss of Appetite, Malaise, Night Sweats, Unintentional Wgt. Loss, Weakness, Other Eyes: denies: No Symptoms, Blind Spots, Blurred Vision, Double Vision, Eye Pain , Floaters, Photophobia, Recent Change in Vision, Other HENT: denies: No Symptoms, Difficult Swallowing, Ear Discharge, Ear Pain, Epistaxis, Gingival Bleeding, Hearing Loss, Mouth Swelling, Nasal Congestion, Ocular Prosthesis, Throat Pain, Toothache, Ringing in Ears, Other Neck: denies: No Symptoms, Decreased ROM, Lumps, Pain on Movement, Stiffness, Swollen Glands, Tenderness, Other Cardiovascular: reports: Chest Pain, Shortness of Breath. denies: No Symptoms, Edema, Palpitations, Other Respiratory: reports: SOB. denies: No Symptoms, Cough, Exercise Intolerance, Hemoptysis, Orthopnea, PND, Snoring, SOB on Exertion, Wheezing, Other Gastrointestinal: denies: No Symptoms, Abdominal Pain, Bloating, Constipation, Diarrhea, Dysphagia, Indigestion, Melena, Nausea, Rectal Bleeding, Vomiting, Vomiting Blood, Other Genitourinary: denies: No Symptoms, Burning, Discharge, Dysuria, Flank Pain, Frequency, Hematuria, Incontinence, Lesions, Menses, Pain, Testicular Mass, Testicular Pain, Testicular Swelling, Urgency, Vaginal Bleeding, Other Breasts: denies: No Symptoms Reported, See HPI, Breast Implants, Discharge from Nipple, Lumps, Pain, Skin Changes, Other Musculoskeletal: denies: No Symptoms, Back Pain, Crepitus, Decreased ROM, Extremity Pain, Joint Pain, Joint Swelling, Muscle Pain, Muscle Cramps, Muscle Weakness, Other Integumentary: denies: No Symptoms, Blister, Bruising, Change in Color, Eczema, Erythema, Incision, Lesions, Lump, Pallor, Pruritis, Rash, Wound, Other Neurological: denies: No Symptoms, Change in LOC, Change in Speech, Confusion, Dizziness, Headache, Incoordination, Numbness, Parasthesia, Pre-Existing Deficit , Seizure, Syncope, Tremors, Unsteady Gait, Weakness, Other Endocrine: denies: No Symptoms, Excessive Sweating, Flushing, Increased Hunger, Increased Thirst, Intolerance to Cold, Intolerance to Heat, Unexplained Weight Gain, Unexplained Weight Loss, Other Hematology/Lymphatic: denies: No Symptoms, Easily Bruised, Excessive Bleeding, Swollen Glands, Other Psychiatric: denies: No Symptoms, Altered Sleep Pattern, Anxiety, Depression, Hallucinations, Panic, Paranoia, Suicidal, Other - Risk Factors Known Risk Factors: Yes: Hypercholesterolemia, Hypertension, Physical Inactivity , Prior AR /Emb Stroke Vital Signs: Vital Signs Temperature 98.2 F 06/26/18 08:30 Pulse Rate 70 06/26/18 08:30 Respiratory Rate 16 06/26/18 08:30 Blood Pressure 137/69 06/26/18 08:30 O2 Sat by Pulse Oximetry (%) 100 06/26/18 08:30 Constitutional: Yes: No Distress, Calm Eyes: Yes: Conjunctiva Clear, EOM Intact HENT: Yes: Atraumatic, Normocephalic Neck: Yes: Supple, Trachea Midline Respiratory: Yes: Regular, Diminished, SOB. No: Rales, Rhonchi, Wheezes Gastrointestinal: Yes: Normal Bowel Sounds, Soft. No: Distention, Tenderness Cardiovascular: Yes: Regular Rate and Rhythm. No: Bradycardia, Tachycardia, Pulse Irregular, Gallop, Rub, Varicosities JVD: No Carotid Bruit: No PMI: Non-Displaced Heart Sounds: Yes: S1, S2. No: Split S2, S3, S4, Clicks, Gallop, Rub, Bruit Murmur: No: Systolic Murmur, Diastolic Murmur Musculoskeletal: Yes: WNL Extremities: Yes: WNL Edema: No Peripheral Pulses WNL: Yes Peripheral Pulses: 2+ Left Doralis Pedis, 2+ Right Dorsalis Pedis Neurological: Yes: Alert, Oriented Psychiatric: Yes: Alert, Oriented - Other Data Labs, Other Data: CBC, BMP 06/26/18 09:11 06/26/18 09:11 INR, PTT INR 1.02 (0.83-1.09) 06/26/18 09:11 Troponin, BNP 06/26/18 09:11 Troponin I < 0.02 Troponin, BNP 06/26/18 09:11 Troponin I < 0.02 ekg 69bpm, no sig change from prior Echo: Report Reviewed Imaging - Results Chest X-ray: Report Reviewed, Image Reviewed EKG: Report Reviewed, Image Reviewed Other: Report Reviewed, Image Reviewed Assessment/Plan 72 year old woman with a pmhx of htn, esrd on hd, CAD s/p CABG 2005 [facility], hld, dm, sbo s/p resection, chronic diastolic CHF, prior LGIB s/p colonoscopy showing diverticulosis with visible vessel in cecum s/p clip, prior admissions for palpitations/dizziness, sob, sent from HD today after developed sudden onset chest pain radiating to the back with associated lightheadedness after 1.5/3hrs of HD today. denies any current chest pain. After last admission pt was recommened to fup in the office to consider an ischemic work up after her GI work up was complete. 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 Chest pain/SOB-during HD today, known CAD s/p CABG 2004 [facility], prior admission for chest pain/sob, planned for outpatient ischemic evaluation but did not come for appointment -EKG today no sig change from prior -cardiac enzymes wnl x 1 -recent echo 05/17/18 showed normal LVEF, normal RV, mild valvular abnl -trend serial cardiac enzymes and ekgs -tele monitoring -plan for nuclear stress test tomorrow if cardiac enzymes wnl, keep npo after midnight for test -cont ASA and Coreg -start statin if no contraindication (was on it on previous admission but not listed in current home med list) -review prior GI work up and treatment for GI bleed/anemia to confirm if would be safe to use DAPT if needed
--- NOTE | 2018-06-26 13:31 | EKG ---
Test Reason : Blood Pressure : / mmHG Vent. Rate : 069 BPM Atrial Rate : 069 BPM P-R Int : 190 ms QRS Dur : 098 ms QT Int : 464 ms P-R-T Axes : 012 018 064 degrees QTc Int : 497 ms NORMAL SINUS RHYTHM PROLONGED QT ABNORMAL ECG WHEN COMPARED WITH ECG OF 17-MAY-2018 02:27, NONSPECIFIC T WAVE ABNORMALITY, IMPROVED IN INFERIOR LEADS T WAVE INVERSION NO LONGER EVIDENT IN LATERAL LEADS Confirmed by MD MITCH, TERRY ([id number]) on 06/26/2018 1:31:04 PM Referred By: Confirmed By:TERRY MEYER MD
--- NOTE | 2018-06-26 16:01 | PN ---
Teaching Attending Note Name of Resident: Ha Barajas ATTENDING PHYSICIAN STATEMENT I saw and evaluated the patient. I reviewed the resident's note and discussed the case with the resident. I agree with the resident's findings and plan as documented. SUBJECTIVE: No current chest pain/palpitations/dyspnea/diaphoresis/nausea/ vomiting/cough/sputum/hemoptysis/fever/chills. OBJECTIVE: Afebrile, Hemodynamically Stable. Last Vital Signs Temp Pulse Resp BP Pulse Ox 98.2 F 70 16 137/69 100 06/26/18 08:30 06/26/18 08:30 06/26/18 08:30 06/26/18 08:30 06/26/18 08:30 HEENT - Atraumatic, Nromocephalic Heart - S1, S2, RRR Lungs - clear to auscultation Abdomen - Small incisional hernia. Soft. Bowel Sounds normal. Extremities - no edema, no calf tenderness. RUR AVF. Laboratory Results - last 24 hr 06/26/18 06/26/18 06/26/18 09:11 09:11 09:11 WBC 6.0 RBC 2.70 L Hgb 8.5 L Hct 25.6 L MCV 94.8 MCH 31.6 MCHC 33.4 RDW 15.0 Plt Count 265 MPV 9.2 Absolute Neuts (auto) 4.4 Neutrophils % 73.9 Lymphocytes % 16.4 Monocytes % 6.4 Eosinophils % 2.6 Basophils % 0.7 Nucleated RBC % 0 PT with INR 12.00 INR 1.02 PTT (Actin FS) 34.9 Sodium 136 Potassium 4.1 Chloride 100 Carbon Dioxide 26 Anion Gap 10 BUN 52 H Creatinine 5.5 H Est GFR (CKD-EPI)AfAm 8.18 Est GFR (CKD-EPI)NonAf 7.06 Random Glucose 158 H Calcium 7.5 L Phosphorus 3.1 Magnesium 2.4 Total Bilirubin 0.2 AST 16 ALT 19 Alkaline Phosphatase 186 H Creatine Kinase 58 Troponin I < 0.02 Total Protein 6.1 L Albumin 3.2 L Lipase 272 Current Medications Generic Name Dose Route Start Last Admin Trade Name Freq PRN Reason Stop Dose Admin Aspirin 81 mg 06/27/18 10:00 Ecotrin - PO DAILY GRAYSON Carvedilol 6.25 mg 06/27/18 10:00 Coreg - PO DAILY GRAYSON Nitroglycerin 0.4 mg 06/26/18 12:02 Nitrostat - SL Q5M PRN FOR CHEST PAIN Home Medications Medication Instructions Recorded Aspirin [Aspirin EC] 81 mg PO DAILY 06/26/18 Calcium Carbonate [Tums] 500 mg PO DAILY 06/26/18 Carvedilol [Coreg -] 6.25 mg PO DAILY 06/26/18 Cholecalciferol (Vitamin D3) 1,000 unit PO BID 06/26/18 [Vitamin D3] ASSESSMENT AND PLAN: 72 year old female with history of HTN, ESRD on HD (TTS), CAD s/p CABG 2004 [facility] , Hx CVA, SBO s/p resection, Chronic Anemia, prior LGIB s/p colonoscopy 04/17/17 showing diverticulosis with visible vessel in cecum s/p clip, presents with acute onset Left sided retrosternal CP during HD, radiating to back, with associated lightheadedness, nausea, without vomiting or palpitations. Symptoms currently resolved. Received ASA 325mg. No active GI bleed currently. 1. Chest Pain with background history of CAD s/p CABG 2nd episode since 05/25 during HD ECG - no acute changes, TropI neg Echo 05/25 - LA dilatation, Trace MR, normal EF. Admit to telemonitoring with serial Troponin measurements. Evaluated by Cardiology - for NM Stress in AM. Continue Aspirin, Coreg. NTG prn. 2. Chronic Normocytic Anemia - sec to ESRD - further management as per Nephrology. 3. ESRD on HD (TTS) HD cut short today due to CP Nephrology consulted. DVT Px - Heparin SQ.
[2018-06-26 18:38] VITALS: BMI 31.3
[2018-06-26] MEDS: NITROGLYCERIN SUBLINGUAL 1/150 0.4 MG TAB SL PRN (19:29)
[2018-06-26] MEDS ORDERED: ISOSORBIDE MONONITRATE 30 MG TAB.SR.24H (FP) PO ONE (19:30)
[2018-06-26] MEDS: HEPARIN NA (PORCINE) 5,000 UNITS/ML 1ML VIAL SQ SCH (22:35)
[2018-06-27] MEDS: HEPARIN NA (PORCINE) 5,000 UNITS/ML 1ML VIAL SQ SCH (06:08)
[2018-06-27] MEDS ORDERED: REGADENOSON 0.4 MG/5 ML PRE-FILLED SYRINGE IVPUSH ONE ×2 (09:44→10:00)
[2018-06-27] MEDS ORDERED: ASPIRIN COATED 81 MG TABLET.EC PO SCH (10:00)
[2018-06-27] MEDS ORDERED: CARVEDILOL 6.25 MG TABLET (FP) PO SCH ×2 (10:00→22:00)
--- NOTE | 2018-06-27 10:21 | PN ---
Progress Note, Physician History of Present Illness: Pt seen and examined at bedside. She is awake and alert. She denies chest pain today. She is going for the second part of her stress test today. - Current Medication List Current Medications: Active Medications Aspirin (Ecotrin -) 81 mg PO DAILY GRAYSON Carvedilol (Coreg -) 6.25 mg PO DAILY GRAYSON Heparin Sodium (Porcine) (Heparin -) 5,000 unit SQ TID GRAYSON Last Admin: 06/27/18 06:08 Dose: 5,000 unit Nitroglycerin (Nitrostat -) 0.4 mg SL Q5M PRN PRN Reason: FOR CHEST PAIN Last Admin: 06/26/18 19:29 Dose: 0.4 mg - Objective Vital Signs: Vital Signs Temperature 97.8 F 06/27/18 08:35 Pulse Rate 74 06/27/18 08:35 Respiratory Rate 18 06/27/18 08:35 Blood Pressure 143/65 06/27/18 08:35 O2 Sat by Pulse Oximetry (%) 97 06/26/18 22:00 Constitutional: Yes: Calm Eyes: Yes: Conjunctiva Clear HENT: Yes: Atraumatic Neck: Yes: Supple Cardiovascular: Yes: S1, S2 Respiratory: Yes: CTA Bilaterally Gastrointestinal: Yes: Soft Genitourinary: Yes: WNL Musculoskeletal: Yes: WNL Edema: Yes Edema: LLE: Trace, RLE: Trace Neurological: Yes: Oriented Psychiatric: Yes: Oriented Labs: CBC, BMP 06/26/18 09:11 06/26/18 09:11 INR, PTT INR 1.02 (0.83-1.09) 06/26/18 09:11 Problem List - Problems (1) Chest pain Code(s): R07.9 - CHEST PAIN, UNSPECIFIED (2) ESRD (end stage renal disease) Code(s): N18.6 - END STAGE RENAL DISEASE Assessment/Plan Current Medications Generic Name Dose Route Start Last Admin Trade Name Freq PRN Reason Stop Dose Admin Aspirin 81 mg 06/27/18 10:00 Ecotrin - PO DAILY GRAYSON Carvedilol 6.25 mg 06/27/18 10:00 Coreg - PO DAILY GRAYSON Heparin Sodium (Porcine) 5,000 unit 06/26/18 22:00 06/27/18 06:08 Heparin - SQ 5,000 unit TID GRAYSON Administration Nitroglycerin 0.4 mg 06/26/18 12:02 06/26/18 19:29 Nitrostat - SL 0.4 mg Q5M PRN Administration FOR CHEST PAIN Laboratory Tests 06/26/18 06/26/18 09:11 21:30 Troponin I < 0.02 < 0.02 Impression 1. ESRD 2. chest pain 3. CAD 4. HTN 5. DM 6. anemia 7. hx syncope 8. 1.4 cm left adrenal adenoma Plan - will order HD today, low flow and UF for volume - follow up stress test results - pt no does not have any chest pain - renal diet once eating - cardio follow up - HD at bedside in tele
[2018-06-27] MEDS ORDERED: AMINOPHYLLINE 250 MG/10 ML VIAL ONE (10:56)
[2018-06-27] MEDS ORDERED: NITROGLYCERIN SUBLINGUAL 1/150 0.4 MG TAB ONE ×2 (10:58→19:04)
[2018-06-27] MEDS ORDERED: METOPROLOL TARTRATE 5 MG/5 ML VIAL ONE (10:59)
[2018-06-27] MEDS ORDERED: NITROGLYCERIN SUBLINGUAL 1/150 0.4 MG TAB SL ONE (11:00)
[2018-06-27] MEDS ORDERED: METOPROLOL TARTRATE 5 MG/5 ML VIAL IVPUSH ONE (11:15)
[2018-06-27] MEDS ORDERED: AMINOPHYLLINE 250 MG/10 ML VIAL IVPUSH ONE (11:15)
[2018-06-27] MEDS ORDERED: PT OWN MED DRAWER 7, Y5N ONE (12:26)
--- NOTE | 2018-06-27 13:04 | EKG ---
Test Reason : Blood Pressure : / mmHG Vent. Rate : 080 BPM Atrial Rate : 080 BPM P-R Int : 218 ms QRS Dur : 098 ms QT Int : 416 ms P-R-T Axes : 025 025 259 degrees QTc Int : 479 ms SINUS RHYTHM WITH 1ST DEGREE A-V BLOCK PROLONGED QT ABNORMAL ECG WHEN COMPARED WITH ECG OF 26-JUN-2018 09:41, ST NOW DEPRESSED IN ANTERIOR LEADS T WAVE INVERSION NOW EVIDENT IN INFERIOR LEADS T WAVE INVERSION NOW EVIDENT IN ANTEROLATERAL LEADS Confirmed by EVONNE HERNANDEZ, ARETHA ([id number]) on 06/27/2018 1:04:35 PM Referred By: Confirmed By:ARETHA DOUGLASS MD
[2018-06-27] MEDS ORDERED: PANTOPRAZOLE SODIUM 40 MG VIAL IVPUSH SCH (13:15)
[2018-06-27 14:16] LABS: HEMATOCRIT 25.9 % (32.4-45.2); HEMOGLOBIN 8.4 GM/dL (10.7-15.3); MCH 31.1 pg (25.7-33.7); MCHC 32.5 g/dl (32.0-36.0); MEAN CELL VOLUME 95.5 fl (80-96); MEAN PLT VOLUME 9.1 fl (7.5-11.1); PLATELET COUNT 268 K/MM3 (134-434); RBC 2.71 M/mm3 (3.60-5.2); RDW 15.4 % (11.6-15.6); WHITE BLOOD COUNT 6.2 K/mm3 (4.0-10.0)
--- NOTE | 2018-06-27 16:00 | PN ---
Teaching Attending Note Name of Resident: Francis Peterson ATTENDING PHYSICIAN STATEMENT I saw and evaluated the patient. I reviewed the resident's note and discussed the case with the resident. I agree with the resident's findings and plan as documented. SUBJECTIVE: No current chest pain/palpitations/dyspnea/diaphoresis/nausea/ vomiting/cough/sputum/fever/chills. Reportedly developed blood per rectum s/p Stress Test. OBJECTIVE: Afebrile, Hemodynamically Stable. Last Vital Signs Temp Pulse Resp BP Pulse Ox 97.6 F 70 18 159/79 97 06/27/18 14:10 06/27/18 14:10 06/27/18 14:10 06/27/18 14:10 06/26/18 22:00 Heart - S1, S2, RRR Lungs - clear to auscultation Abdomen - Small incisional hernia. Soft. Bowel Sounds normal. Extremities - no edema, no calf tenderness. RUR AVF. Laboratory Results - last 24 hr 06/26/18 06/26/18 06/26/18 16:25 19:08 21:30 WBC RBC Hgb Hct MCV MCH MCHC RDW Plt Count MPV POC Glucometer 156 Creatine Kinase Cancelled 53 Troponin I Cancelled < 0.02 06/27/18 13:51 WBC 6.2 RBC 2.71 L Hgb 8.4 L Hct 25.9 L MCV 95.5 MCH 31.1 MCHC 32.5 RDW 15.4 Plt Count 268 MPV 9.1 POC Glucometer Creatine Kinase Troponin I Current Medications Generic Name Dose Route Start Last Admin Trade Name Freq PRN Reason Stop Dose Admin Aspirin 81 mg 06/27/18 10:00 06/27/18 13:24 Ecotrin - PO Not Given DAILY GRAYSON Carvedilol 6.25 mg 06/27/18 10:00 Coreg - PO DAILY GRAYSON Sodium Chloride 250 mls @ 3,000 mls/hr 06/27/18 10:21 Normal Saline - IV 06/28/18 10:21 PRN PRN Hypotension during Dialysis Nitroglycerin 0.4 mg 06/26/18 12:02 06/26/18 19:29 Nitrostat - SL 0.4 mg Q5M PRN Administration FOR CHEST PAIN Pantoprazole Sodium 40 mg 06/27/18 13:15 06/27/18 14:12 Protonix Iv IVPUSH 40 mg DAILY GRAYSON Administration ASSESSMENT AND PLAN: 72 year old female with history of HTN, ESRD on HD (TTS), CAD s/p CABG 2004 [facility] , Hx CVA, SBO s/p resection, Chronic Anemia, prior LGIB s/p colonoscopy 04/17/17 showing diverticulosis with visible vessel in cecum s/p clip, presents with acute onset Left sided retrosternal CP during HD, radiating to back, with associated lightheadedness, nausea, without vomiting or palpitations. Symptoms currently resolved. 1. Chest Pain with background history of CAD s/p CABG 2nd episode since 05/25 during HD ECG - no acute changes, TropI neg Echo 05/25 - LA dilatation, Trace MR, normal EF. TropI neg x 2. Evaluated by Cardiology - NM Stress Test positive for large posterior/lateral wall reversible perfusion defect, EF 52% Initial plan was for transfer for coronary cath but patient developed BRBPR. Heparin/Aspirin held. GI eval pending. 2. Acute Blood Loss secondary to likely lower GI bleed - H/H stable. GI consult for further eval and recommendations. Aspirin/Heparin held. 3. Chronic Normocytic Anemia - sec to ESRD - further management as per Nephrology. 4. ESRD on HD (TTS) - Nephrology consulted. DVT Px - Heparin SQ held. SCDs
--- NOTE | 2018-06-27 16:06 | PN ---
Physical Exam: SUBJECTIVE: Patient seen and examined. Pt. endorses chest pain in the AM that was worsened with palpation. Pt. in afternoon had GI bleed x 2. OBJECTIVE: Vital Signs Period Temp Pulse Resp BP Sys/Rodriguez Pulse Ox Last 24 Hr 97.2 F-99.1 F 70-87 16-20 126-172/58-87 97-99 GENERAL: The patient is awake, alert, and fully oriented, in no acute distress. HEAD: Normal with no signs of trauma. EYES: Sclera anicteric, conjunctiva clear. ENT: Ears normal, nares patent, oropharynx clear without exudates, moist mucous membranes. NECK: Trachea midline, full range of motion, supple. LUNGS: Breath sounds equal, clear to auscultation bilaterally, no wheezes, no crackles, no accessory muscle use. HEART: Regular rate and rhythm, S1, S2 without murmur ABDOMEN: Soft, LLQ tenderness, nondistended, normoactive bowel sounds EXTREMITIES: 2+ dorsal pedal pulses, no calf tenderness, warm, well-perfused, no edema. NEUROLOGICAL: Normal speech, gait not observed. PSYCH: Normal mood, normal affect. SKIN: Warm, dry, normal turgor, no rashes or lesions noted Laboratory Results - last 24 hr 06/26/18 06/26/18 06/26/18 16:25 19:08 21:30 WBC RBC Hgb Hct MCV MCH MCHC RDW Plt Count MPV POC Glucometer 156 Creatine Kinase Cancelled 53 Troponin I Cancelled < 0.02 06/27/18 13:51 WBC 6.2 RBC 2.71 L Hgb 8.4 L Hct 25.9 L MCV 95.5 MCH 31.1 MCHC 32.5 RDW 15.4 Plt Count 268 MPV 9.1 POC Glucometer Creatine Kinase Troponin I Active Medications Home Medications Medication Instructions Recorded Aspirin [Aspirin EC] 81 mg PO DAILY 06/26/18 Calcium Carbonate [Tums] 500 mg PO DAILY 06/26/18 Carvedilol [Coreg -] 6.25 mg PO DAILY 06/26/18 Cholecalciferol (Vitamin D3) 1,000 unit PO BID 06/26/18 [Vitamin D3] Current Medications Aspirin (Ecotrin -) 81 mg PO DAILY [facility] Last Admin: 06/27/18 13:24 Dose: Not Given Carvedilol (Coreg -) 6.25 mg PO DAILY [facility] Sodium Chloride (Normal Saline -) 250 mls @ 3,000 mls/hr IV PRN PRN PRN Reason: Hypotension during Dialysis Stop: 06/28/18 10:21 Nitroglycerin (Nitrostat -) 0.4 mg SL Q5M PRN PRN Reason: FOR CHEST PAIN Last Admin: 06/26/18 19:29 Dose: 0.4 mg Pantoprazole Sodium (Protonix Iv) 40 mg IVPUSH DAILY GRAYSON Last Admin: 06/27/18 14:12 Dose: 40 mg ASSESSMENT/PLAN: Pt. is a 72 y.o. F w/ PMHx. of ESRD on HD (//), CAD s/p CABG, and Lower GI Bleed, presents for chest pain radiating to the back. #Chest Pain started during dialysis, likely demand ischemia Trop Neg. X 2 Hold ASA b/c of GI bleed c/w Coreg 6.25mg BID c/w Nitroglycerin SL Positive Stress test (06/27/18): showed norml LV function. Large region of ischemia in the posterior and lateral vidal. CP with ischemic ECG changes seen during maverick stress, likely not a cath candidate as Pt. has an ongoing GI bleed. Cardiology (Dr. Powell) consult appreciated. Last Echo (05/17/18): nml LVEF, nml RV, mild valvular abnormality start Imdur 60mg PO #Lower GI Bleed GI (Dr. Vela) consult appreciated HgB stable @ 8.5-->8.4 Transfusion threshold 8.0 will repeat CBC if Pt. has recurring chest pain overnight start Protonix 40mg IVP Daily Pt. has past history of duodenitis an gastritis from EGD performed by Dr. Bell in September of 2017. #ESRD last HD session was only 1/2 completed Nephrology Consult (Dr. Mosquera) appreciated #FEN no IVF monitor electrolytes and replete as needed NPO except meds #DVT Ppx. TEDs/SCDs Hold Heparin Visit type - Emergency Visit Emergency Visit: Yes ED Registration Date: 06/27/18 Care time: The patient presented to the Emergency Department on the above date and was hospitalized for further evaluation of their emergent condition. - New Patient This patient is new to me today: No - Critical Care Critical Care patient: No - Discharge Referral Referred to [facility] Med P.C.: No
--- NOTE | 2018-06-27 16:21 | PN ---
Progress Note, Physician Chief Complaint: Cardiology FU Telem NSR. CP free since the stress test. History of Present Illness: 72 year old woman with a pmhx of htn, esrd on hd, CAD s/p CABG 2004 [facility], hld, dm, sbo s/p resection, chronic diastolic CHF, prior LGIB s/p colonoscopy showing diverticulosis with visible vessel in cecum s/p clip, prior admissions for palpitations/dizziness, sob, sent from HD today after developed sudden onset chest pain radiating to the back with associated lightheadedness after 1.5/3hrs of HD denies any current chest pain. She has occasional CP with exertion. After last admission pt was recommened to fup in the office to consider an ischemic work up after her GI work up was complete. She did not come to the office and did not see a different automatic profile shaper operator as per report. 06/27/18 stress test showed norml LV function. Large region of ischemia in the posterior and lateral vidal. CP with ischemic ECG changes seen during maverick stress. Soon after her stress she had BRBPR. - Current Medication List Current Medications: Active Medications Aspirin (Ecotrin -) 81 mg PO DAILY [facility] Last Admin: 06/27/18 13:24 Dose: Not Given Carvedilol (Coreg -) 6.25 mg PO DAILY [facility] Sodium Chloride (Normal Saline -) 250 mls @ 3,000 mls/hr IV PRN PRN PRN Reason: Hypotension during Dialysis Stop: 06/28/18 10:21 Nitroglycerin (Nitrostat -) 0.4 mg SL Q5M PRN PRN Reason: FOR CHEST PAIN Last Admin: 06/26/18 19:29 Dose: 0.4 mg Pantoprazole Sodium (Protonix Iv) 40 mg IVPUSH DAILY [facility] Last Admin: 06/27/18 14:12 Dose: 40 mg - Objective Vital Signs: Vital Signs Temperature 97.6 F 06/27/18 14:10 Pulse Rate 70 06/27/18 14:10 Respiratory Rate 18 06/27/18 14:10 Blood Pressure 159/79 06/27/18 14:10 O2 Sat by Pulse Oximetry (%) 97 06/26/18 22:00 Constitutional: Yes: Well Nourished, No Distress Eyes: Yes: Conjunctiva Clear, EOM Intact HENT: Yes: Atraumatic, Normocephalic Neck: Yes: Supple, Trachea Midline Cardiovascular: Yes: Regular Rate and Rhythm, S1, S2. No: JVD Respiratory: Yes: Regular, CTA Bilaterally Gastrointestinal: Yes: Normal Bowel Sounds, Soft, Tenderness Edema: No Labs: CBC, BMP 06/27/18 13:51 06/26/18 09:11 INR, PTT INR 1.02 (0.83-1.09) 06/26/18 09:11 Problem List - Problems (1) Chest pain Code(s): R07.9 - CHEST PAIN, UNSPECIFIED (2) Hx of CABG Code(s): Z95.1 - PRESENCE OF AORTOCORONARY BYPASS GRAFT Assessment/Plan Chest pain/SOB with chronic symptoms suggesting stable angna syndrome. Large region of ischemia on stress test with normal LV function CABG 2004 [facility] -She is not a candidate for coronary intervention given acute GI bleeding and need for AC and antiplatelet therapy pot intervention -Medical management for stable angina and severe CAD is advised. Continue Coreg. once GI bleeding has stabilized with uptitrate dose. -Add Imdur 60mg qd. -Hold ASA in the setting of acute bleeding. -start Atorvastatin 40mg qd. -GI eval.
--- NOTE | 2018-06-27 17:43 | CON.GI ---
Consult - History of Present Illness History of Present Illness: GI consult dictated Hematochezia most likely secondary to recurrent diverticular bleed vs. oozing from hemorrhoids in the setting of asa/ heparin. I doubt this is an upper GI source. her last colonoscopy was 05/25 . She has never had an egd in the past. In the setting of abnormal stress test would prefer to hold off on any invasive procedures at this time. Risk vs. benefit of cardiac catheterization and a/c as per cardiology. She has an increased risk of GI bleed in the setting of antiplatelet therapy secondary to her underlying diverticular disease & previous bleed. 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 Cardio/Vascular: Yes: CAD, CHF, HTN, IL, Hyperlipdemia Gastrointestinal: Yes: Diverticulosis Renal/: Yes: Renal Failure, Hemodialysis Psych: Yes: Anxiety Musculoskeletal: Yes: Chronic low back pain Endocrine: Yes: Diabetes Mellitus - Past Surgical History Past Surgical History: Yes: AV Fistula/Graft, CABG - Alcohol/Substance Use Hx Alcohol Use: No History of Substance Use: reports: None - Smoking History Smoking history: Never smoked Have you smoked in the past 12 months: No Aproximately how many cigarettes per day: 0 - Social History Usual Living Arrangement: With Child ADL: Independent History of Recent Travel: No Home Medications - Allergies Allergies/Adverse Reactions: Allergies Allergy/AdvReac Type Severity Reaction Status Date / Time No Known Allergies Allergy Verified 06/26/18 08:49 - Home Medications Home Medications: Ambulatory Orders Aspirin [Aspirin EC] 81 mg PO DAILY 06/26/18 Calcium Carbonate [Tums] 500 mg PO DAILY 06/26/18 Carvedilol [Coreg -] 6.25 mg PO DAILY 06/26/18 Cholecalciferol (Vitamin D3) [Vitamin D3] 1,000 unit PO BID 06/26/18 Physical Exam-GI Vital Signs: Vital Signs Temperature 97.6 F 06/27/18 14:10 Pulse Rate 70 06/27/18 14:10 Respiratory Rate 18 06/27/18 14:10 Blood Pressure 159/79 06/27/18 14:10 O2 Sat by Pulse Oximetry (%) 97 06/27/18 09:00 Labs: CBC, BMP 06/27/18 13:51 06/26/18 09:11 INR, PTT INR 1.02 (0.83-1.09) 06/26/18 09:11
[2018-06-27] MEDS ORDERED: SODIUM CHLORIDE 250 ML IV PRN (18:18)
[2018-06-27 18:28] LABS: HEMATOCRIT 25.1 % (32.4-45.2); HEMOGLOBIN 8.1 GM/dL (10.7-15.3); MCH 30.8 pg (25.7-33.7); MCHC 32.3 g/dl (32.0-36.0); MEAN CELL VOLUME 95.5 fl (80-96); MEAN PLT VOLUME 9.3 fl (7.5-11.1); PLATELET COUNT 274 K/MM3 (134-434); RBC 2.63 M/mm3 (3.60-5.2); RDW 15.2 % (11.6-15.6); WHITE BLOOD COUNT 5.2 K/mm3 (4.0-10.0)
[2018-06-27] MEDS: NITROGLYCERIN SUBLINGUAL 1/150 0.4 MG TAB SL PRN ×2 (19:06→21:41)
[2018-06-27 19:30] LABS: CALCIUM 7.6 mg/dL (8.5-10.1); POTASSIUM 5.6 mmol/L (3.5-5.1)
[2018-06-27 19:40] LABS: CREATININE 7.9 mg/dL (0.55-1.3)
[2018-06-27] MEDS: CARVEDILOL 6.25 MG TABLET (FP) PO SCH (21:43)
[2018-06-27 22:39] LABS: HEMATOCRIT 25.8 % (32.4-45.2); HEMOGLOBIN 8.4 GM/dL (10.7-15.3); MCH 30.9 pg (25.7-33.7); MCHC 32.5 g/dl (32.0-36.0); MEAN CELL VOLUME 94.9 fl (80-96); MEAN PLT VOLUME 8.9 fl (7.5-11.1); PLATELET COUNT 271 K/MM3 (134-434); RBC 2.72 M/mm3 (3.60-5.2); RDW 15.2 % (11.6-15.6); WHITE BLOOD COUNT 4.7 K/mm3 (4.0-10.0)
--- NOTE | 2018-06-28 01:05 | CONS ---
DATE OF CONSULTATION: DATE OF DICTATION: 06/27/2018 GASTROINTESTINAL CONSULTATION HISTORY OF PRESENT ILLNESS: The patient is a 72-year-old female with past medical history hypertension, end-stage renal disease on hemodialysis, CAD status post bypass surgery in 2004, history of CVA, small bowel obstruction status post resection, chronic anemia. She had a lower GI bleed with colonoscopy performed which revealed diverticulosis, hemorrhoids, and a diverticulum in the cecum which was clipped. The day of this colonoscopy was April 17, 2018, approximately 2 months ago. She was admitted to the hospital with substernal chest pain and pressure. During the course, she underwent a nuclear stress test which was positive for a large posterolateral wall reversal perfusion defect. She was supposed to be transferred for coronary catheterization. However, yesterday developed episodes of hematochezia. She was at the time on heparin and aspirin, which are now being held. As per the patient, she said she a couple of bowel movements yesterday that were bloody. She denies any further episodes today. She denies melena, abdominal pain, nausea, vomiting, or hematemesis. She has never had an egd in the past. PAST MEDICAL AND SURGICAL HISTORY: As in the HPI. ALLERGIES: No known drug allergies. SOCIAL HISTORY: Does not drink, smoke, or use drugs. FAMILY HISTORY: No history of GI or gynecological malignancy. PHYSICAL EXAMINATION: VITAL SIGNS: Temperature 68, blood pressure 160/76, respiratory rate 12, oxygen saturation 98% on 2 L. GENERAL: In no acute distress. HEENT: Anicteric sclerae. CARDIOVASCULAR: S1, S2, regular rate and rhythm. LUNGS: Bilaterally clear to auscultation. ABDOMEN: Soft, nontender with a reducible ventral hernia. EXTREMITIES: No edema. LABORATORY: White blood cell count 5.2, hemoglobin and hematocrit 8 over 25; earlier in the day it was 8.4 over 25, and yesterday 8.5 over 25. MCV 95, platelet count 274. INR 1, sodium 135, potassium 5.6, BUN over creatinine 78 over 7.9, glucose 70, AST 16, ALT 19, alkaline phosphatase 186. No abdominal imaging was performed on this hospitalization. She did have an upper GI series in May of 2018 which revealed no strictures and no ulcer was visualized in the gastric cavity or duodenum. IMPRESSION: Episodes of hematochezia yesterday in the setting of anticoagulation, also with a known history of recent diverticular bleed. Current differential diagnosis would include recurrent diverticular bleed or bleeding secondary to hemorrhoids. I doubt an upper GI source although it can not be entirely excluded. There is no sign of an overt gastrointestinal bleed. She is hemodynamically stable. Risk and benefit of cardiac catheterization as well as potential need of antiplatelet regimen as per cardiology. She is at increased risk of GI bleed secondary to her diverticular disease. If the cardiac risk is deemed to be high, she should be anticoagulated and closely monitor her hemoglobin and hematocrit as well as stool for occult blood. Continue her on Protonix 40 mg p.o. daily, full liquid diet, avoid additional nonsteroidal antiinflammatory drugs. Trend cbc q8 hour. This patient will be followed by the GI service. DO REGULO PACHECO/[id number] MTDD
[2018-06-28] MEDS: NITROGLYCERIN SUBLINGUAL 1/150 0.4 MG TAB SL PRN (02:19)
[2018-06-28 07:06] LABS: HEMATOCRIT 26.6 % (32.4-45.2); HEMOGLOBIN 8.8 GM/dL (10.7-15.3); MCH 31.1 pg (25.7-33.7); MCHC 32.9 g/dl (32.0-36.0); MEAN CELL VOLUME 94.6 fl (80-96); MEAN PLT VOLUME 9.2 fl (7.5-11.1); PLATELET COUNT 311 K/MM3 (134-434); RBC 2.81 M/mm3 (3.60-5.2); RDW 14.8 % (11.6-15.6)
[2018-06-28 07:33] LABS: CALCIUM 8.3 mg/dL (8.5-10.1); CREATININE 4.7 mg/dL (0.55-1.3); MAGNESIUM 2.3 mg/dL (1.8-2.4); PHOSPHOROUS 4.3 mg/dL (2.5-4.9); POTASSIUM 4.7 mmol/L (3.5-5.1)
[2018-06-28] MEDS: CARVEDILOL 6.25 MG TABLET (FP) PO SCH (09:46)
[2018-06-28] MEDS ORDERED: ISOSORBIDE MONONITRATE 60 MG TAB.SR.24H (FP) PO SCH (10:00)
[2018-06-28] MEDS ORDERED: PANTOPRAZOLE 40 MG TABLET (FP) PO SCH (10:00)
[2018-06-28] MEDS ORDERED: SODIUM CHLORIDE 250 ML IV PRN (12:04)
--- NOTE | 2018-06-28 12:04 | PN ---
Progress Note, Physician History of Present Illness: Pt seen and examined at bedside. She is awake and alert. She denies shortness of breath. She was found to have a GI bleed and the cardiac cath was cancelled. - Current Medication List Current Medications: Active Medications Aspirin (Ecotrin -) 81 mg PO DAILY [facility] Last Admin: 06/27/18 13:24 Dose: Not Given Carvedilol (Coreg -) 6.25 mg PO BID [facility] Last Admin: 06/28/18 09:46 Dose: 6.25 mg Isosorbide Mononitrate (Imdur -) 60 mg PO DAILY [facility] Last Admin: 06/28/18 09:46 Dose: 60 mg Nitroglycerin (Nitrostat -) 0.4 mg SL Q5M PRN PRN Reason: FOR CHEST PAIN Last Admin: 06/28/18 02:19 Dose: 0.4 mg Pantoprazole Sodium (Protonix -) 40 mg PO DAILY [facility] Last Admin: 06/28/18 09:46 Dose: 40 mg - Objective Vital Signs: Vital Signs Temperature 98.9 F 06/28/18 08:46 Pulse Rate 84 06/28/18 08:46 Respiratory Rate 18 06/28/18 08:46 Blood Pressure 148/74 06/28/18 08:46 O2 Sat by Pulse Oximetry (%) 99 06/28/18 08:46 Constitutional: Yes: Calm Eyes: Yes: Conjunctiva Clear HENT: Yes: Atraumatic Neck: Yes: Supple Cardiovascular: Yes: S1, S2 Respiratory: Yes: CTA Bilaterally Gastrointestinal: Yes: Soft Genitourinary: Yes: WNL Musculoskeletal: Yes: WNL Edema: No Integumentary: Yes: WNL Neurological: Yes: Oriented Psychiatric: Yes: Oriented Labs: CBC, BMP 06/28/18 05:30 06/28/18 05:30 INR, PTT INR 1.02 (0.83-1.09) 06/26/18 09:11 Problem List - Problems (1) Chest pain Code(s): R07.9 - CHEST PAIN, UNSPECIFIED (2) ESRD (end stage renal disease) Code(s): N18.6 - END STAGE RENAL DISEASE Assessment/Plan Current Medications Generic Name Dose Route Start Last Admin Trade Name Freq PRN Reason Stop Dose Admin Aspirin 81 mg 06/27/18 10:00 06/27/18 13:24 Ecotrin - PO Not Given DAILY [facility] Carvedilol 6.25 mg 06/27/18 22:00 06/28/18 09:46 Coreg - PO 6.25 mg BID [facility] Administration Isosorbide Mononitrate 60 mg 06/28/18 10:00 06/28/18 09:46 Imdur - PO 60 mg DAILY [facility] Administration Nitroglycerin 0.4 mg 06/26/18 12:02 06/28/18 02:19 Nitrostat - SL 0.4 mg Q5M PRN Administration FOR CHEST PAIN Pantoprazole Sodium 40 mg 06/28/18 10:00 06/28/18 09:46 Protonix - PO 40 mg DAILY [facility] Administration Impression 1. ESRD 2. chest pain 3. CAD 4. HTN 5. DM 6. anemia 7. hx syncope 8. 1.4 cm left adrenal adenoma Plan - HD tomorrow - cardiac cath cancelled - epogen for anemia - monitor hg - check iron and ferritin - renal diet - cardio follow up
--- NOTE | 2018-06-28 12:08 | PN ---
Teaching Attending Note Name of Resident: Francis Peterson ATTENDING PHYSICIAN STATEMENT I saw and evaluated the patient. I reviewed the resident's note and discussed the case with the resident. I agree with the resident's findings and plan as documented. SUBJECTIVE: Reports chest discomfort on ambulation. No further BRBPR since yesterday. OBJECTIVE: Afebrile, Hemodynamically Stable. Last Vital Signs Temp Pulse Resp BP Pulse Ox 98.9 F 84 18 148/74 99 06/28/18 08:46 06/28/18 08:46 06/28/18 08:46 06/28/18 08:46 06/28/18 08:46 Heart - S1, S2, RRR Lungs - clear to auscultation Abdomen - Small incisional hernia. Soft, mild LLQ tenderness. Bowel Sounds normal. Extremities - no edema, no calf tenderness. RUE AVF. Laboratory Results - last 24 hr 06/27/18 06/27/18 06/27/18 13:51 18:00 18:00 WBC 6.2 RBC 2.71 L Hgb 8.4 L Hct 25.9 L MCV 95.5 MCH 31.1 MCHC 32.5 RDW 15.4 Plt Count 268 MPV 9.1 Sodium 135 L Potassium 5.6 H Chloride 100 Carbon Dioxide 24 Anion Gap 11 BUN 78 H Creatinine 7.9 H* Est GFR (CKD-EPI)AfAm 5.28 Est GFR (CKD-EPI)NonAf 4.56 Random Glucose 70 L Calcium 7.6 L Phosphorus Magnesium Troponin I Blood Type O POSITIVE Antibody Screen Negative 06/27/18 06/27/18 06/27/18 18:00 22:25 22:25 WBC 5.2 4.7 RBC 2.63 L 2.72 L Hgb 8.1 L 8.4 L Hct 25.1 L 25.8 L MCV 95.5 94.9 MCH 30.8 30.9 MCHC 32.3 32.5 RDW 15.2 15.2 Plt Count 274 271 MPV 9.3 8.9 Sodium Potassium Chloride Carbon Dioxide Anion Gap BUN Creatinine Est GFR (CKD-EPI)AfAm Est GFR (CKD-EPI)NonAf Random Glucose Calcium Phosphorus Magnesium Troponin I < 0.02 Blood Type Antibody Screen 06/28/18 06/28/18 05:30 05:30 WBC 6.0 RBC 2.81 L Hgb 8.8 L Hct 26.6 L MCV 94.6 MCH 31.1 MCHC 32.9 RDW 14.8 Plt Count 311 MPV 9.2 Sodium 138 Potassium 4.7 Chloride 99 Carbon Dioxide 33 H Anion Gap 7 L BUN 26 H Creatinine 4.7 H Est GFR (CKD-EPI)AfAm 9.90 Est GFR (CKD-EPI)NonAf 8.54 Random Glucose 94 Calcium 8.3 L Phosphorus 4.3 Magnesium 2.3 Troponin I Blood Type Antibody Screen Current Medications Generic Name Dose Route Start Last Admin Trade Name Freq PRN Reason Stop Dose Admin Aspirin 81 mg 06/27/18 10:00 06/27/18 13:24 Ecotrin - PO Not Given DAILY [facility] Carvedilol 6.25 mg 06/27/18 22:00 06/28/18 09:46 Coreg - PO 6.25 mg BID [facility] Administration Isosorbide Mononitrate 60 mg 06/28/18 10:00 06/28/18 09:46 Imdur - PO 60 mg DAILY [facility] Administration Nitroglycerin 0.4 mg 06/26/18 12:02 06/28/18 02:19 Nitrostat - SL 0.4 mg Q5M PRN Administration FOR CHEST PAIN Pantoprazole Sodium 40 mg 06/28/18 10:00 06/28/18 09:46 Protonix - PO 40 mg DAILY [facility] Administration ASSESSMENT AND PLAN: 72 year old female with history of HTN, ESRD on HD (TTS), CAD s/p CABG 2004 [facility] , Hx CVA, SBO s/p resection, Chronic Anemia, prior LGIB s/p colonoscopy 04/17/17 showing diverticulosis with visible vessel in cecum s/p clip, presents with acute onset Left sided retrosternal CP during HD, radiating to back, with associated lightheadedness, nausea, without vomiting or palpitations. Symptoms currently resolved. 1. Chest Pain with background history of CAD s/p CABG 2nd episode since 05/25 during HD - reports chest discomfort on ambulation ECG - no acute changes, TropI neg Echo 05/25 - LA dilatation, Trace MR, normal EF. TropI neg x 2. Evaluated by Cardiology - NM Stress Test positive for large posterior/lateral wall reversible perfusion defect, EF 52% Initial plan was for transfer for coronary cath but patient developed BRBPR after stress test. Heparin/Aspirin held. Further management as per Cardiology. 2. Acute Blood Loss secondary to likely lower GI bleed - H/H stable. GI recommends no further investigation at this time. Aspirin/Heparin held, however patient is having exertional chest pain with positive stress test. Unclear what the optimal way to proceed is. Will contact tertiary care center for further evaluation and consideration for possible intervention. 3. Chronic Normocytic Anemia - sec to ESRD - further management as per Nephrology. 4. ESRD on HD (TTS) - Nephrology consulted. DVT Px - Heparin SQ held. SCDs
--- NOTE | 2018-06-28 13:12 | EKG ---
Test Reason : Blood Pressure : / mmHG Vent. Rate : 078 BPM Atrial Rate : 078 BPM P-R Int : 166 ms QRS Dur : 088 ms QT Int : 458 ms P-R-T Axes : 041 006 028 degrees QTc Int : 522 ms POOR DATA QUALITY, INTERPRETATION MAY BE ADVERSELY AFFECTED NORMAL SINUS RHYTHM NONSPECIFIC ST AND T WAVE ABNORMALITY ABNORMAL ECG WHEN COMPARED WITH ECG OF 26-JUN-2018 18:53, [place] INTERVAL HAS DECREASED T WAVE INVERSION NO LONGER EVIDENT IN ANTEROLATERAL LEADS Confirmed by NORMA BUSTOS MD ([id number]) on 06/28/2018 1:12:36 PM Referred By: Confirmed By:NORMA BUSTOS MD
--- NOTE | 2018-06-28 16:12 | PN ---
Progress Note, Physician Chief Complaint: Cardiology FU Telem NSR. CP free History of Present Illness: 72 year old woman with a pmhx of htn, esrd on hd, CAD s/p CABG 2004 [facility], hld, dm, sbo s/p resection, chronic diastolic CHF, prior LGIB s/p colonoscopy showing diverticulosis with visible vessel in cecum s/p clip, prior admissions for palpitations/dizziness, sob, sent from HD today after developed sudden onset chest pain radiating to the back with associated lightheadedness after 1.5/3hrs of HD denies any current chest pain. She has occasional CP with exertion. After last admission pt was recommened to fup in the office to consider an ischemic work up after her GI work up was complete. She did not come to the office and did not see a different genetic counsellor as per report. 06/27/18 stress test showed norml LV function. Large region of ischemia in the posterior and lateral vidal. CP with ischemic ECG changes seen during maverick stress. Soon after her stress she had BRBPR. - Current Medication List Current Medications: Active Medications Aspirin (Ecotrin -) 81 mg PO DAILY [facility] Last Admin: 06/27/18 13:24 Dose: Not Given Carvedilol (Coreg -) 6.25 mg PO BID [facility] Last Admin: 06/28/18 09:46 Dose: 6.25 mg Epoetin Edil (Epogen -) 8,000 unit IVPUSH ONCE ONE Stop: 06/29/18 12:05 Sodium Chloride (Normal Saline -) 250 mls @ 3,000 mls/hr IV PRN PRN PRN Reason: Hypotension during Dialysis Stop: 06/29/18 12:04 Isosorbide Mononitrate (Imdur -) 60 mg PO DAILY [facility] Last Admin: 06/28/18 09:46 Dose: 60 mg Nitroglycerin (Nitrostat -) 0.4 mg SL Q5M PRN PRN Reason: FOR CHEST PAIN Last Admin: 06/28/18 02:19 Dose: 0.4 mg Pantoprazole Sodium (Protonix -) 40 mg PO DAILY [facility] Last Admin: 06/28/18 09:46 Dose: 40 mg - Objective Vital Signs: Vital Signs Temperature 98.2 F 06/28/18 13:29 Pulse Rate 68 06/28/18 13:29 Respiratory Rate 18 06/28/18 13:29 Blood Pressure 142/68 06/28/18 13:29 O2 Sat by Pulse Oximetry (%) 99 06/28/18 08:46 Constitutional: Yes: Well Nourished, No Distress Eyes: Yes: Conjunctiva Clear, EOM Intact HENT: Yes: Atraumatic, Normocephalic Neck: Yes: Supple, Trachea Midline Cardiovascular: Yes: Regular Rate and Rhythm. No: JVD Respiratory: Yes: Regular, CTA Bilaterally Gastrointestinal: Yes: Normal Bowel Sounds, Soft Edema: No Labs: CBC, BMP 06/28/18 12:45 06/28/18 05:30 INR, PTT INR 1.02 (0.83-1.09) 06/26/18 09:11 Problem List - Problems (1) Chest pain Code(s): R07.9 - CHEST PAIN, UNSPECIFIED (2) Hx of CABG Code(s): Z95.1 - PRESENCE OF AORTOCORONARY BYPASS GRAFT Assessment/Plan Chest pain/SOB with chronic symptoms suggesting stable angna syndrome. Large region of ischemia on stress test with normal LV function CABG 2004 [facility] -She is not a candidate for coronary intervention given acute GI bleeding and need for AC and antiplatelet therapy pot intervention -Medical management for stable angina and severe CAD is advised. Continue Coreg. --Out patient follow up with cardiology is recommended to continue to titrate anti anginal therpies. -Pt should be given Sub lingual NTG for intermittent angina relief. -Hold ASA in the setting of acute bleeding. -start Atorvastatin 40mg qd. --Pt is stable for discharge from cardiac perspective. Discussed with her DTR. Will see as needed.
--- NOTE | 2018-06-28 17:17 | DS ---
Physical Exam: SUBJECTIVE: Patient seen and examined. No acute events overnight Pt. denies any more bleeding per rectum. OBJECTIVE: Vital Signs Period Temp Pulse Resp BP Sys/Rodriguez Pulse Ox Last 24 Hr 97.8 F-98.9 F 66-84 18-20 137-198/68-95 97-99 PHYSICAL EXAM GENERAL: The patient is awake, alert, and fully oriented, in no acute distress. HEAD: Normal with no signs of trauma. EYES: Sclera anicteric, conjunctiva clear. ENT: Ears normal, nares patent, oropharynx clear without exudates, moist mucous membranes. NECK: Trachea midline, full range of motion, supple. LUNGS: Breath sounds equal, clear to auscultation bilaterally, no wheezes, no crackles, no accessory muscle use. HEART: Regular rate and rhythm, S1, S2 without murmur ABDOMEN: Soft, LLQ tenderness, nondistended, normoactive bowel sounds EXTREMITIES: 2+ dorsal pedal pulses, no calf tenderness, warm, well-perfused, no edema. NEUROLOGICAL: Normal speech, gait not observed. PSYCH: Normal mood, normal affect. SKIN: Warm, dry, normal turgor, no rashes or lesions noted LABS Laboratory Results - last 24 hr 06/27/18 06/27/18 06/27/18 18:00 18:00 18:00 WBC 5.2 Corrected WBC (auto) RBC 2.63 L Hgb 8.1 L Hct 25.1 L MCV 95.5 MCH 30.8 MCHC 32.3 RDW 15.2 Plt Count 274 MPV 9.3 Manual Slide Review Platelet Comment Sodium 135 L Potassium 5.6 H Chloride 100 Carbon Dioxide 24 Anion Gap 11 BUN 78 H Creatinine 7.9 H* Est GFR (CKD-EPI)AfAm 5.28 Est GFR (CKD-EPI)NonAf 4.56 Random Glucose 70 L Calcium 7.6 L Phosphorus Magnesium Troponin I Hep A IgM Ab Confirm Hepatitis A Ab Total Hep Bs Antigen Hep Bs Ag Confirmation Hep Bs Antibody Hep B Core Total Ab Blood Type O POSITIVE Antibody Screen Negative 06/27/18 06/27/18 06/27/18 18:00 22:25 22:25 WBC 4.7 Corrected WBC (auto) RBC 2.72 L Hgb 8.4 L Hct 25.8 L MCV 94.9 MCH 30.9 MCHC 32.5 RDW 15.2 Plt Count 271 MPV 8.9 Manual Slide Review Platelet Comment Sodium Potassium Chloride Carbon Dioxide Anion Gap BUN Creatinine Est GFR (CKD-EPI)AfAm Est GFR (CKD-EPI)NonAf Random Glucose Calcium Phosphorus Magnesium Troponin I < 0.02 Hep A IgM Ab Confirm Cancelled Hepatitis A Ab Total Cancelled Hep Bs Antigen Cancelled Hep Bs Ag Confirmation Cancelled Hep Bs Antibody Cancelled Hep B Core Total Ab Cancelled Blood Type Antibody Screen 06/28/18 06/28/18 06/28/18 05:30 05:30 12:45 WBC 6.0 Cancelled Corrected WBC (auto) Cancelled RBC 2.81 L Cancelled Hgb 8.8 L Cancelled Hct 26.6 L Cancelled MCV 94.6 Cancelled MCH 31.1 Cancelled MCHC 32.9 Cancelled RDW 14.8 Cancelled Plt Count 311 Cancelled MPV 9.2 Cancelled Manual Slide Review Cancelled Platelet Comment Cancelled Sodium 138 Potassium 4.7 Chloride 99 Carbon Dioxide 33 H Anion Gap 7 L BUN 26 H Creatinine 4.7 H Est GFR (CKD-EPI)AfAm 9.90 Est GFR (CKD-EPI)NonAf 8.54 Random Glucose 94 Calcium 8.3 L Phosphorus 4.3 Magnesium 2.3 Troponin I Hep A IgM Ab Confirm Hepatitis A Ab Total Hep Bs Antigen Hep Bs Ag Confirmation Hep Bs Antibody Hep B Core Total Ab Blood Type Antibody Screen HOSPITAL COURSE: Date of Admission:06/27/18 Date of Discharge: 06/28/18 Pt.is a 72 y.o. F admitted for chest pain. Cardiology consult (Dr. Leigh) appreciated. Pt. had recent Echo which showed normal LV EF, normal RV and mild valvular abnormality. Troponin were negative. Pt. underwent stress test which showed large area of postero-lateral wall ischemia. Shortly after stress test, Pt. has two episodes of bright red blood per rectum. Hgb remained stable overnight. Decision was made to transfer to [facility] because of increased cardiac risk in performing diagnostic/therapeutic colonoscopy. Nephrology consult appreciated in managing ESRD. GI consult appreciated. Hospital course discussed and agreed upon with Pt. and medical staff. Minutes to complete discharge: 45 Discharge Summary Reason For Visit: CHEST PAIN,ESRD Current Active Problems Chest pain (Acute) ESRD (end stage renal disease) (Acute) Condition: Stable - Instructions Diet, Activity, Other Instructions: You came in for chest pain. We did a stress test and you were found to have a large region of decreased blood flow to the posterior and lateral vidal of the heart. After the stress test you were found to have bloody bowel movements. Because of the bleeding found, you are not a candidate for cardiac catherization. Please resume all your medications as they were prescribed. Please follow up with your Claims Manager within 1 week, if you do not have one we have provided Dr. Powell. Please follow up with your Special Forces Senior Sergeant, Dr. Mcdonnell within 1 week. Please follow up with your Primary Care Physician within 1 week, if you do not have one we have provided Dr. Galvan. Please follow up with your Child And Family Therapist, Dr. Mosquera within 1 week. Please return to the ED if you are having worsening chest pain, shortness of breath, bleeding or any concerning symptoms. Referrals: Cj Galvan MD [Staff Physician] - 1 Week Katy Mcdonnell DO [Staff Physician] - 1 Week Yash Powell MD [Staff Physician] - 1 Week Yadira Mosquera MD [Staff Physician] - 1 Week Disposition: TRANSFER ACUTE CARE/OTHER HOSP - Home Medications Comprehensive Discharge Medication List: Ambulatory Orders Aspirin [Aspirin EC] 81 mg PO DAILY 06/26/18 Calcium Carbonate [Tums] 500 mg PO DAILY 06/26/18 Carvedilol [Coreg -] 6.25 mg PO DAILY 06/26/18 Cholecalciferol (Vitamin D3) [Vitamin D3] 1,000 unit PO BID 06/26/18 This patient is new to me today: No Emergency Visit: Yes ED Registration Date: 06/27/18 Care time: The patient presented to the Emergency Department on the above date and was hospitalized for further evaluation of their emergent condition. Critical Care patient: No - Discharge Referral Referred to [facility] No
--- NOTE | 2018-06-28 18:13 | PN ---
Progress Note (short form) - Note Progress Note: Came to follow-up on patient, however patient in the process of being transferred to [facility] for further evaluation.
[2018-06-28 18:40] VITALS: BP 137/73; PULSE 65; TEMP 98.8
[2018-06-29] MEDS ORDERED: EPOETIN ALFA 2,000 UNIT/1 ML VIAL IVPUSH ONE (12:04)
[2018-07-01 02:07] LABS: HBSAG SCREEN Negative (Negative); HEP A AB, IGM Negative (Negative); HEP B CORE AB, TOT Negative (Negative)
== END 2018-06-28 18:42 | disposition short-term general hospital (02) | DRG 253 ==
LOC: JER 08:27 → JERBED 11:11 → J4W 17:49 → OBSVTOIN 06-27 13:09
PROC: 5A1D70Z Performance of Urinary Filtration, Intermittent, Less than 6 Hours Per Day (ICD-10-PCS; principal; 2018-06-27)
DX: K92.2 Gastrointestinal hemorrhage, unspecified (principal); I25.118 Atherosclerotic heart disease of native coronary artery with other forms of angina pectoris; I13.2 Hypertensive heart and chronic kidney disease with heart failure and with stage 5 chronic kidney disease, or end stage renal disease; N18.6 End stage renal disease; I45.81 Long QT syndrome; E11.22 Type 2 diabetes mellitus with diabetic chronic kidney disease; I50.32 Chronic diastolic (congestive) heart failure; D62 Acute posthemorrhagic anemia; D35.02 Benign neoplasm of left adrenal gland; I25.2 Old myocardial infarction; Z95.1 Presence of aortocoronary bypass graft; Z99.2 Dependence on renal dialysis; Z86.73 Personal history of transient ischemic attack (TIA), and cerebral infarction without residual deficits; E78.5 Hyperlipidemia, unspecified; D63.1 Anemia in chronic kidney disease
CPT/HCPCS: 36415; 71045-TC-FY; 78452-TC; 80048; 80053; 82550; 82962; 83690; 83735; 84100; 84484; 85025; 85027; 85610; 85730; 86704; 86706; 86708; 86803; 86850; 86900; 86901; 87340; 93005; 93010; 93017; 99283-25; A9502; G0378; J1644; J2785

== ENCOUNTER 2018-08-11 09:56 | Inpatient (IN) | payer OTHER ==
--- NOTE | 2018-08-11 10:34 | PDOC ---
History of Present Illness - General Chief Complaint: Blood Transfusion Stated Complaint: LOW BLOOD COUNT Time Seen by Provider: 08/11/18 10:19 History Source: Patient Exam Limitations: No Limitations - History of Present Illness Initial Comments: 08/11/18 10:33 CHIEF COMPLAINT: Chest pain HPI: Ms. Posey is a 72 yo F with significant history of ESRD on HD (//), CAD s/ p CABG, prior CVA, chronic anemia, PUD who presents to the ED from dialysis due to weakness and anemia Pt has presented to the ER in the past for rectal bleeding CTA at that time positive for cecal bleeding. Follow-up colonoscopy 04/17/18 revealed sigmoid / descending colon diverticulosis, no AVM's, a solitary diverticulum at the base of the cecum with what appeared to be a non bleeding visible vessel. Endoclip was placed. Pt s/p recent admission for chest pain, troponin negative, s/p stress test which revealed large area of postero-lateral wall ischemia followed by two episodes of bright red blood per rectum and patient was transferred to [facility]. PEr daughter, work up included endoscopy and colonoscopy, both of which were "negative" and Cardiac cathetherization/stenting (unconfirmed). Since discharge from [facility], pt notes decreased po intake and dark stools Today, while at dialysis, she passed out. She had three hours of dialysis before an episode of syncope/pre syncope. She reported that her hands felt weak. She reports the night before she did not eat much due to abdominal pain from a suspected abdominal hernia and had one black bowel movement. Currently, pt reports that she feels tired and weak. She denies any chest pain , shortness of breath, abdominal pain currently, urinary incontinence/frequency , hematuria, constipation or diarrhea. PAST MEDICAL HISTORY: ESRD Chronic anemia CAD s/p CABG Prior CVA PAST SURGICAL HISTORY: CABG R wrist AVF creation Ventral Hernia repair Social History: Denies, but exposed to second-hand smoke Smoking: Denies Alcohol: Denies Drugs: Denies Lives with family at home; ambulates with walker regularly Family History: Allergies: No Known Allergies Allergy (Verified 06/26/18 08:49) 08/11/18 10:46 08/11/18 10:48 08/11/18 11:06 ROS: GENERAL/CONSTITUTIONAL: Yes: weakness No: fever, chills HEAD, EYES, EARS, NOSE AND THROAT: No: change in vision, ear pain, discharge, sore throat, throat swelling. CARDIOVASCULAR: Yes: lightheadedness No: chest pain, lightheadedness, palpitations, syncope RESPIRATORY: No: cough, shortness of breath, wheezing, hemoptysis, stridor. GASTROINTESTINAL: Yes: anorexia, no appetite, melena No: nausea, vomiting, diarrhea GENITOURINARY: No: dysuria, hematuria, frequency, urgency, flank pain. MUSCULOSKELETAL: No: back pain, neck pain, joint pain, muscle swelling or pain SKIN AND BREASTS: No: lesions, pallor, rash or easy bruising. NEUROLOGIC: No: headache, vertigo, paresthesias ENDOCRINE: No: unexplained weight gain or loss HEMATOLOGIC/LYMPHATIC: No: anemia, easy bleeding, swelling nodes. PE: GENERAL: NAD, Awake, alert, and fully oriented, weak appearing HEENT: NC/AT, KAYLA, sclera anicteric, MMM Neck: No JVD appreciated, no carotid bruits LUNGS: CTA bilaterally. No wheezes, and no crackles. No accessory muscle use. HEART: RRR, normal S1 and S2 without murmur. ABDOMEN: Soft, ventral hernia (soft), NT/ND, normoactive bowel sounds, no guarding RECTAL: no external hemorrhoids seen, dark stool noted EXTREMITIES: R wrist AVF noted with palpable thrill; bandage in place without blood noted, warm, No calf tenderness. Left upper extremity bruising noted No peripheral edema. SKIN: Warm, dry, no rashes 08/11/18 11:14 08/11/18 11:20 08/11/18 14:58 08/13/18 07:22 08/13/18 07:24 Past History - Past Medical History Allergies/Adverse Reactions: Allergies Allergy/AdvReac Type Severity Reaction Status Date / Time No Known Allergies Allergy Verified 06/26/18 08:49 Home Medications: Ambulatory Orders Aspirin [Aspirin EC] 81 mg PO DAILY 06/26/18 Calcium Carbonate [Tums] 500 mg PO DAILY 06/26/18 Atorvastatin Ca [Lipitor] 80 mg PO HS 08/11/18 Cinacalcet HCl [Sensipar] 60 mg PO DAILY 08/11/18 Clopidogrel Bisulfate [Plavix] 75 mg PO DAILY 08/11/18 Hydralazine HCl 25 mg PO Q8H 08/11/18 Isosorbide Mononitrate [Isosorbide Mononitrate ER] 30 mg PO DAILY 08/11/18 Pantoprazole Sodium [Protonix] 40 mg PO DAILY 08/11/18 Anemia: No Asthma: No Cardiac Disorders: Yes (CAD, CABG) CVA: Yes (CVA) COPD: No CHF: No Dementia: No Diabetes: Yes Dialysis: Yes (tues, thurs, sat) GI Disorders: Yes (HERNIA, small bowel resection) Disorders: No HTN: Yes Hypercholesterolemia: Yes Liver Disease: No Seizures: No Thyroid Disease: No - Surgical History Abdominal Surgery: No Appendectomy: No Cardiac Surgery: Yes (BYPASS) Cholecystectomy: No Lung Surgery: No Neurologic Surgery: No Orthopedic Surgery: No - Immunization History Td Vaccination: (UNKNOWN) Immunization Up to Date: Yes (FLU AND PNA) - Suicide/Smoking/Psychosocial Hx Smoking Status: No Smoking History: Never smoked Have you smoked in the past 12 months: No Number of Cigarettes Smoked Daily: 0 Cigars Per Day: 0 Information on smoking cessation initiated: No Hx Alcohol Use: No Drug/Substance Use Hx: No Substance Use Type: None Hx Substance Use Treatment: No *Physical Exam - Vital Signs Last Vital Signs Temp Pulse Resp BP Pulse Ox 97.3 F L 72 18 105/49 L 100 08/11/18 10:04 08/11/18 10:04 08/11/18 10:04 08/11/18 10:04 08/11/18 10:04 ED Treatment Course - LABORATORY CBC & Chemistry Diagram: 08/12/18 06:49 08/12/18 06:49 - RADIOLOGY Radiology Studies Ordered: Category Date Time Status CHEST X-RAY PORTABLE* [RAD] Stat Radiology 08/11/18 10:19 Ordered Medical Decision Making - Critical Care Time Total Critical Care Time (minutes): 60 Critical Care Statement: The care of this patient involved high complexity decision making to prevent further life threatening deterioration of the patient 's condition and/or to evaluate & treat vital organ system(s) failure or risk of failure. - Medical Decision Making 08/11/18 10:45 EKG - NSR rate of 70 bpm, axis nml, no st elevation or derpression, t waves upright, QTc: 507ms 08/11/18 11:05 Laboratory Tests 08/11/18 11:00 Stool Occult Blood Positive PLEASE NOTE: one confounder is that patient MAY be taking Iron supplementation 08/11/18 11:06 Protonix ordered 08/11/18 11:22 Labs being sent now 08/11/18 11:31 CXR - Cardiomegaly, scarring/atalectasis at the left base 08/11/18 11:36 Pt tells her nurse that she had upper back and neck pain Will order tylenol 08/11/18 12:11 Laboratory Tests 08/11/18 11:30 INR 0.87 08/11/18 12:49 Laboratory Tests 06/28/18 08/11/18 08/11/18 05:30 11:30 11:30 WBC 6.0 8.4 Hgb 8.8 L 6.4 L* Hct 26.6 L 19.4 L D Plt Count 311 Potassium 3.8 Anion Gap 10 Creatinine 3.0 H Random Glucose 115 H Creatine Kinase 39 Troponin I < 0.02 Will plan to admit Will contact renal for ? transfusion with HD 08/11/18 13:16 Case reviewed with Renal They agree with 1 unit PRBCs now to be run slowly I have contacted the lab THEY ARE NOW CANCELLING THIS PATIENT'S LABS BECAUSE THERE WAS A SMALL CLOT IN THE TUBE CAN NOT START TRANSFUSION IF LABS ARE NOT ACCURATE 08/11/18 13:17 08/11/18 13:19 08/11/18 14:03 PT 08/11/18 14:03 Laboratory Tests 08/11/18 13:16 WBC 7.2 Hgb 6.0 L* Hct 18.0 L D Plt Count 202 D Will order PRBCs at this time Pt reported chest pain Pt is burping Will give tylenol and Protonix Will re assess Will admit PRBC ready 08/11/18 14:12 Case reviewed with hospitalist Will start blood as soon as it is ready 08/11/18 16:54 Pt reported chest pain EKG repeated NSR rate of 64 bpm, I and aVL t wave inversion, no st elevation or depression This was related to admitting team Clinical impression: Symptomatic anemia, initial presentation guiaic positive stools, initial presentation Chest pain, repeat presentation 08/13/18 07:26 *DC/Admit/Observation/Transfer Diagnosis at time of Disposition: Guaiac + stool Anemia Qualifiers: Anemia type: other cause Other causes of anemia: other cause, not classified Qualified Code(s): D64.89 - Other specified anemias - Discharge Dispostion Condition at time of disposition: Good Decision to Admit order: Yes - Referrals - Patient Instructions - Post Discharge Activity
[2018-08-11] MEDS ORDERED: PANTOPRAZOLE SODIUM 40 MG VIAL IVPUSH ONE (11:05)
[2018-08-11] MEDS ORDERED: ACETAMINOPHEN 325 MG TABLET (FP) PO ONE (11:37)
[2018-08-11 12:08] LABS: INR 0.87 (0.83-1.09); PROTHROMBIN TIME (PATIENT) 10.3 SEC (9.7-13.0)
[2018-08-11 12:35] LABS: ALBUMIN 3.2 g/dl (3.4-5.0); ALK PHOS 198 U/L (45-117); ANION GAP 10 MMOL/L (8-16); BILIRUBIN,TOTAL 0.2 mg/dL (0.2-1); CALCIUM 8.1 mg/dL (8.5-10.1); CHLORIDE 100 mmol/L (98-107); CO2 25 mmol/L (21-32); GLUCOSE,RANDOM 115 mg/dL (74-106); POTASSIUM 3.8 mmol/L (3.5-5.1); SGOT/AST 20 U/L (15-37); SGPT/ALT 27 U/L (13-61); SODIUM 134 mmol/L (136-145); TOT PROT 6.2 g/dl (6.4-8.2)
[2018-08-11 13:30] LABS: BASO % 0.6 % (0-2.0); MCH 31.2 pg (25.7-33.7); MCHC 33.5 g/dl (32.0-36.0); MEAN CELL VOLUME 93.1 fl (80-96); MEAN PLT VOLUME 10.2 fl (7.5-11.1); NEUT % 79.4 % (42.8-82.8); PLATELET COUNT 202 K/MM3 (134-434); RBC 1.93 M/mm3 (3.60-5.2); RDW 16.5 % (11.6-15.6); WHITE BLOOD COUNT 7.2 K/mm3 (4.0-10.0)
[2018-08-11] MEDS ORDERED: morphine CARPU-JECT 4 MG/1 ML DISP.SYRIN IVPUSH ONE (13:52)
[2018-08-11] MEDS ORDERED: PANTOPRAZOLE SODIUM 40 MG/100 ML BAG IVPB ONE (14:03)
[2018-08-11] MEDS ORDERED: ACETAMINOPHEN 325 MG TABLET (FP) ONE (14:03)
--- NOTE | 2018-08-11 15:21 | HP ---
Admitting History and Physical - Admission Chief Complaint: Chest Pain History of Present Illness: Ms. Posey is a 72 yo F with significant history of ESRD on HD (//), CAD s/ p CABG, prior CVA, chronic anemia, PUD who presents to the ED from dialysis due to weakness and anemia. Pt s/p recent admission for chest pain, troponin negative, s/p stress test which revealed large area of postero-lateral wall ischemia. This was complicated by two episodes of bright red blood per rectum and patient was transferred to [facility]. Since discharge from [facility], pt notes decreased po intake and dark stools Today, while at dialysis, she passed out. She had three hours of dialysis before loss of consciousness. She reported that her hands felt weak. She reports the night before she did not eat much due to abdominal pain from a suspected abdominal hernia and had one black bowel movement. Currently, pt reports that she feels tired and weak. She has felt lightheaded at prior dialysis treatments, but did not lose consciousness. She no longer feels dizzy. She denies any chest pain, shortness of breath, abdominal pain currently, urinary incontinence/frequency, hematuria, constipation or diarrhea. 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: CVA Cardiovascular: Yes: CAD, CHF, HTN, AR, Hyperlipdemia Gastrointestinal: Yes: Diverticulosis, Other (C-Diff) Renal/: Yes: Renal Failure, Hemodialysis Heme/Onc: Yes: Anemia Infectious Disease: Yes: C-Diff ( was a chronic smoker) Psych: Yes: Anxiety Musculoskeletal: Yes: Chronic low back pain Endocrine: Yes: Diabetes Mellitus (Pt states she is diet controlled and does not take any medication for DM) - Past Surgical History Past Surgical History: Yes: AV Fistula/Graft, CABG, Hernia Repair ([facility]) - Smoking History Smoking history: Never smoked Have you smoked in the past 12 months: No Aproximately how many cigarettes per day: 0 - Alcohol/Substance Use Hx Alcohol Use: No History of Substance Use: reports: None - Social History Usual Living Arrangement: Yes: Other (Lives at home with her family) ADL: Independent History of Recent Travel: No Home Medications - Allergies Allergies/Adverse Reactions: Allergies Allergy/AdvReac Type Severity Reaction Status Date / Time No Known Allergies Allergy Verified 06/26/18 08:49 - Home Medications Home Medications: Ambulatory Orders Aspirin [Aspirin EC] 81 mg PO DAILY 06/26/18 Calcium Carbonate [Tums] 500 mg PO DAILY 06/26/18 Atorvastatin Ca [Lipitor] 80 mg PO HS 08/11/18 Cinacalcet HCl [Sensipar] 60 mg PO DAILY 08/11/18 Clopidogrel Bisulfate [Plavix] 75 mg PO DAILY 08/11/18 Hydralazine HCl 25 mg PO Q8H 08/11/18 Isosorbide Mononitrate [Isosorbide Mononitrate ER] 30 mg PO DAILY 08/11/18 Pantoprazole Sodium [Protonix] 40 mg PO DAILY 08/11/18 Review of Systems - Review of Systems Constitutional: reports: No Symptoms, Loss of Appetite, Weakness Eyes: reports: No Symptoms HENT: reports: No Symptoms Neck: reports: No Symptoms Cardiovascular: reports: No Symptoms Respiratory: reports: No Symptoms Gastrointestinal: reports: Melena Genitourinary: reports: No Symptoms Breasts: reports: No Symptoms Reported Musculoskeletal: reports: No Symptoms Integumentary: reports: No Symptoms Neurological: reports: No Symptoms Endocrine: reports: No Symptoms Hematology/Lymphatic: reports: No Symptoms Psychiatric: reports: No Symptoms Physical Examination Vital Signs: Vital Signs Temperature 97.3 F L 08/11/18 10:04 Pulse Rate 72 08/11/18 10:04 Respiratory Rate 18 08/11/18 10:04 Blood Pressure 105/49 L 08/11/18 10:04 O2 Sat by Pulse Oximetry (%) 100 08/11/18 10:04 Constitutional: Yes: Well Nourished, No Distress, Calm Eyes: Yes: WNL, Conjunctiva Clear, EOM Intact HENT: Yes: WNL, Atraumatic, Normocephalic Neck: Yes: WNL, Supple, Trachea Midline Cardiovascular: Yes: WNL, Regular Rate and Rhythm Respiratory: Yes: WNL, Regular, CTA Bilaterally, On Nasal O2 Gastrointestinal: Yes: Normal Bowel Sounds, Abdomen, Obese ...Rectal Exam: Yes: Guaiac Positive (Dark Stool) Renal/: Yes: WNL Musculoskeletal: Yes: WNL Extremities: Yes: WNL, Other (AV Fistula right arm-Bruit and Thrill Present) Edema: No Peripheral Pulses WNL: Yes Neurological: Yes: WNL, Alert, Oriented Psychiatric: Yes: WNL, Alert, Oriented Labs: CBC, BMP 08/11/18 13:16 08/11/18 11:30 Imaging - Results Chest X-ray: Report Reviewed (A single AP view of the chest has been submitted. Since 06/26/2018, there is a large heart, sclerotic unfolded aorta, sternal sutures and clips, prominent central markings and atelectasis or scarring at the left base. Since the prior study of 06/26/2018 there is no change of an adverse nature.) Assessment/Plan Ms. Posey is a 72 yo F with significant history of ESRD on HD (//), CAD s/ p CABG, prior CVA, chronic anemia, PUD who presents to the ED from dialysis due to weakness and anemia with a possible GI Bleed Chest Pain Coronary Artery Disease -PT had positve stress 06/28/2018 ( Large Severe Intensity Posterior Lateral Ischemia) Cardiology deemed not a surgical candidate and to manage medically -Neg 1st Trop, Trend 2 more Troponins -EKG with some Ischemic Changes Per Dr. Ginger Del Rio -Echo Ordered -Nitro SL PRN -Hold ASA due to GI Bleed -Holding Statin due to NPO -Holding Plavix for Cards Consult -Continue home dose of Isosorbide ER 30mg PO Daily -Consult Cardiology Acute Blood Loss Secondary to Acute GI Bleed -Positive Fecal Occult Blood -Dark Tarry Stools -Hgb 6.0 -Will transfuse 1 unit PRBC slowly per Dr. Desai -Protonix 40mg IV Push Daily -CBC at 1999 -Consult GI ESRD -Dialysis at [facility] -Monitor Electrolytes -Continue Sensipar CHF -Monitor I&Os -Daily Weights HTN -Continue Hydrylazine DM -Patients states she does not take any medication and manages her diabetes with diet - Daily BGM -HgA1C Prophylactic Measures -OOB with assist FEN -NPO -Once PT is able to eat will place on Renal/Cardiac Diet -DVT proph (Scds) Disp -Maintain as inpatient -Full Code -DC Planning Visit type - Emergency Visit Emergency Visit: Yes ED Registration Date: 08/11/18 Care time: The patient presented to the Emergency Department on the above date and was hospitalized for further evaluation of their emergent condition. - New Patient This patient is new to me today: Yes Date on this admission: 08/11/18 - Critical Care Critical Care patient: No
--- NOTE | 2018-08-11 17:18 | CON.GI ---
Consult Consult Specialty:: Gastroenterology ( [facility]) Referred by:: Dr Rachele Del Rio Reason for Consultation:: Hb 6 - History of Present Illness Chief Complaint: Weaknesss following dialysis. Postprandial vomiting History of Present Illness: 72F was came to the ER after suffering a syncopal spell upon completion of dialysis. She is found to have a Hb 6. The history is obtained with a airplane cover maker in the family. Concha has not eaten for the past 2 days due to nausea and vomiting. She denies hematemesis but does report black stools. She was transferred recently from here to [facility] after she presented with chest pain and rectal bleeding. A stress test revealed a large ischemic area. It is not clear whether or not stents were placed but she is now on Plavix ( suggesting that a stent was placed). While at [facility] she underwent a repeat EGD and colonoscopy and reports that noting was found. She has had repeated episodes of bleeding and earlier this year a CTA suggested a cecal source. Dr Teran performed a colonoscopy on 04/17 18 which revealed a single diverticulum within the cecum with a nonbleeding visible vessel which he endoclipped. Moderate diverticlosis was found in the descending and sigmoid colon. Dr Bell performed an EGD on 09/25/17 and described mild erosive gastritis and duodenitis. Dr Candelario found a diverticulum in the bulb of the duodenum during his 01/28/11 EGD. Concha reports that she has not been able to eat for the past 2 days due to postprandial vomiting. - History Source History Provided By: Patient, Medical Record Limitations to Obtaining History: Poor Historian - Past Medical History DIETITIAN HELPER: Yes: CVA Cardio/Vascular: Yes: CAD, CHF, HTN, Hyperlipdemia, [place], Other (peripheral avscular disease requiring right iliac and bilaterla renal stents) Gastrointestinal: Yes: Diverticulosis, Gastritis, Other (C-Diff, colonoscopic endoclipping of a cecal diverticulum in 04/23, duodenal diverticulum) Hepatobiliary: Yes: Cholelithiasis Renal/: Yes: Renal Failure, Hemodialysis Infectious Disease: Yes: C-Diff ( was a chronic smoker) Psych: Yes: Anxiety Musculoskeletal: Yes: Chronic low back pain Endocrine: Yes: Diabetes Mellitus, Other (left adrenal adenoma) - Past Surgical History Past Surgical History: Yes: AV Fistula/Graft, CABG, Colonoscopy, Hernia Repair ( ventral), Upper Endoscopy Additional Surgical History: vertical midline laparotomy incision with h/o "abdominal mass" excised at [facility]. A previously noted retroperitoneal mass seen on a 2011 CT scan is no longer evident - Alcohol/Substance Use Hx Alcohol Use: No History of Substance Use: reports: None - Smoking History Smoking history: Never smoked Have you smoked in the past 12 months: No Aproximately how many cigarettes per day: 0 - Social History Usual Living Arrangement: With Child ADL: Independent Place of : Other ([place]) History of Recent Travel: No Home Medications - Allergies Allergies/Adverse Reactions: Allergies Allergy/AdvReac Type Severity Reaction Status Date / Time No Known Allergies Allergy Verified 06/26/18 08:49 - Home Medications Home Medications: Ambulatory Orders Aspirin [Aspirin EC] 81 mg PO DAILY 06/26/18 Calcium Carbonate [Tums] 500 mg PO DAILY 06/26/18 Atorvastatin Ca [Lipitor] 80 mg PO HS 08/11/18 Cinacalcet HCl [Sensipar] 60 mg PO DAILY 08/11/18 Clopidogrel Bisulfate [Plavix] 75 mg PO DAILY 08/11/18 Hydralazine HCl 25 mg PO Q8H 08/11/18 Isosorbide Mononitrate [Isosorbide Mononitrate ER] 30 mg PO DAILY 08/11/18 Pantoprazole Sodium [Protonix] 40 mg PO DAILY 08/11/18 Physical Exam-GI Vital Signs: Vital Signs Temperature 97.3 F L 08/11/18 10:04 Pulse Rate 64 08/11/18 16:44 Respiratory Rate 24 H 08/11/18 16:44 Blood Pressure 156/58 L 08/11/18 16:44 O2 Sat by Pulse Oximetry (%) 100 08/11/18 16:44 CBC,CMP WBC 7.2 K/mm3 (4.0-10.0) 08/11/18 13:16 RBC 1.93 M/mm3 (3.60-5.2) L 08/11/18 13:16 Hgb 6.0 GM/dL (10.7-15.3) L* 08/11/18 13:16 Hct 18.0 % (32.4-45.2) L D 08/11/18 13:16 MCV 93.1 fl (80-96) 08/11/18 13:16 MCH 31.2 pg (25.7-33.7) 08/11/18 13:16 MCHC 33.5 g/dl (32.0-36.0) 08/11/18 13:16 RDW 16.5 % (11.6-15.6) H 08/11/18 13:16 Plt Count 202 K/MM3 (134-434) D 08/11/18 13:16 MPV 10.2 fl (7.5-11.1) D 08/11/18 13:16 Absolute Neuts (auto) 5.7 K/mm3 (1.5-8.0) 08/11/18 13:16 Neutrophils % 79.4 % (42.8-82.8) 08/11/18 13:16 Lymphocytes % 12.0 % (8-40) D 08/11/18 13:16 Monocytes % 7.0 % (3.8-10.2) 08/11/18 13:16 Eosinophils % 1.0 % (0-4.5) 08/11/18 13:16 Basophils % 0.6 % (0-2.0) 08/11/18 13:16 Nucleated RBC % 0 % (0-0) 08/11/18 13:16 Sodium 134 mmol/L (136-145) L 08/11/18 11:30 Potassium 3.8 mmol/L (3.5-5.1) 08/11/18 11:30 Chloride 100 mmol/L (98-107) 08/11/18 11:30 Carbon Dioxide 25 mmol/L (21-32) 08/11/18 11:30 Anion Gap 10 MMOL/L (8-16) 08/11/18 11:30 BUN 39.0 mg/dL (7-18) H 08/11/18 11:30 Creatinine 3.0 mg/dL (0.55-1.3) H 08/11/18 11:30 Est GFR (CKD-EPI)AfAm 17.03 08/11/18 11:30 Est GFR (CKD-EPI)NonAf 14.69 08/11/18 11:30 Random Glucose 115 mg/dL (74-106) H 08/11/18 11:30 Calcium 8.1 mg/dL (8.5-10.1) L 08/11/18 11:30 Total Bilirubin 0.2 mg/dL (0.2-1) 08/11/18 11:30 AST 20 U/L (15-37) 08/11/18 11:30 ALT 27 U/L (13-61) 08/11/18 11:30 Alkaline Phosphatase 198 U/L (45-117) H 08/11/18 11:30 Creatine Kinase 39 U/L (26-192) 08/11/18 11:30 Troponin I < 0.02 ng/ml (0.00-0.05) 08/11/18 11:30 Total Protein 6.2 g/dl (6.4-8.2) L 08/11/18 11:30 Albumin 3.2 g/dl (3.4-5.0) L 08/11/18 11:30 Current Medications Generic Name Dose Route Start Last Admin Trade Name Freq PRN Reason Stop Dose Admin Acetaminophen 650 mg 08/11/18 17:32 Tylenol - PO Q6H PRN PAIN Atorvastatin Calcium 80 mg 08/11/18 22:00 Lipitor - PO HS GRAYSON Cinacalcet 60 mg 08/12/18 10:00 Sensipar - PO DAILY GRAYSON Hydralazine HCl 25 mg 08/11/18 18:00 Apresoline - PO TID GRAYSON Isosorbide Mononitrate 30 mg 08/12/18 10:00 Imdur - PO DAILY GRAYSON Nitroglycerin 0.4 mg 08/11/18 17:22 Nitrostat - SL Q5M PRN FOR CHEST PAIN Pantoprazole Sodium 40 mg 08/12/18 10:00 Protonix Iv IVPUSH DAILY GRAYSON Constitutional: Yes: Anxious Eyes: Yes: Conjunctiva Clear HENT: Yes: Atraumatic Neck: Yes: Supple Cardiovascular: Yes: Regular Rate and Rhythm, Other (healed median sternotomy incision) Respiratory: Yes: CTA Bilaterally Gastrointestinal Inspection: Yes: Hernia (nontender umbilical and supraumbilical incisional midline hernia), Scars (long vertical midline incisional) ...Auscultate: Yes: Normoactive Bowel Sounds, Hypoactive Bowel Sounds ...Palpate: Yes: Soft, Other (nontender) ...Rectal Exam: Yes: Guaiac Positive (black guaiac positive flecks of stool) Labs: CBC, BMP 08/11/18 13:16 08/11/18 11:30 INR, PTT INR 0.87 (0.83-1.09) 08/11/18 11:30 Laboratory Tests 02/24/18 04/14/18 04/16/18 05:30 02:00 05:30 Hgb 10.3 L 9.2 L 7.1 L 04/18/18 05/12/18 06/28/18 05:30 19:54 05:30 Hgb 9.3 L 7.9 L 8.8 L 08/11/18 13:16 Hgb 6.0 L* Problem List - Problems (1) Melena Code(s): K92.1 - MELENA (2) Vomiting Code(s): R11.10 - VOMITING, UNSPECIFIED (3) Diverticular hemorrhage Code(s): K57.31 - DVRTCLOS OF LG INT W/O PERFORATION OR ABSCESS W BLEEDING (4) Umbilical hernia without obstruction and without gangrene Code(s): K42.9 - UMBILICAL HERNIA WITHOUT OBSTRUCTION OR GANGRENE (5) Diabetes 1.5, managed as type 1 Code(s): E13.9 - OTHER SPECIFIED DIABETES MELLITUS WITHOUT COMPLICATIONS (6) Peripheral vascular disease Code(s): I73.9 - PERIPHERAL VASCULAR DISEASE, UNSPECIFIED (7) Anemia Code(s): D64.9 - ANEMIA, UNSPECIFIED Qualifiers: Anemia type: other cause Other causes of anemia: other cause, not classified Qualified Code(s): D64.89 - Other specified anemias (8) Dialysis patient Code(s): Z99.2 - DEPENDENCE ON RENAL DIALYSIS (9) ESRD (end stage renal disease) Code(s): N18.6 - END STAGE RENAL DISEASE (10) GI bleed Code(s): K92.2 - GASTROINTESTINAL HEMORRHAGE, UNSPECIFIED Qualifiers: GI bleed type/associated pathology: unspecified gastrointestinal hemorrhage type Qualified Code(s): K92.2 - Gastrointestinal hemorrhage, unspecified (11) HTN (hypertension) Code(s): I10 - ESSENTIAL (PRIMARY) HYPERTENSION (12) HTN (hypertension) Code(s): I10 - ESSENTIAL (PRIMARY) HYPERTENSION (13) Hx of CABG Code(s): Z95.1 - PRESENCE OF AORTOCORONARY BYPASS GRAFT (14) Positive PPD, treated Code(s): R76.11 - NONSPECIFIC REACTION TO SKIN TEST W/O ACTIVE TUBERCULOSIS (15) ESRD (end stage renal disease) Code(s): N18.6 - END STAGE RENAL DISEASE (16) Gastroparesis due to DM Code(s): E11.43 - TYPE 2 DIABETES W DIABETIC AUTONOMIC (POLY)NEUROPATHY; K31.84 - GASTROPARESIS Assessment/Plan Impression: - The melena suggest a more proximal source of bleeding than the colon. The combination of Plavix and aspirin may be causing erosive gastritis/duodenitis or ulcer disease. She may alternatively be bleeding from small bowel vascular ectasias and should ultimatey have capsule endoscopy. If bleeding persists an EGD will be undertaken but for now needs resuscitation with PRBCs. Magdiel start PPI drip. - Her postprandial vomiting is more likely to reflect gastroparesis than ulcer disease given that she had an EGD just a few weeks ago. - History of diverticular hemorrhage Plan: -- Transfuse --PPI drip -- Reglan -- CTA if hemorrhage ensues -- May need repeat EGD -- Ultimately needs a capsule endoscopy
[2018-08-11] MEDS ORDERED: ACETAMINOPHEN 325 MG TABLET (FP) PO PRN (17:32)
[2018-08-11] MEDS: METOCLOPRAMIDE HCL INJECTION 10 MG/2 ML VIAL IVPUSH SCH (18:41)
[2018-08-11] MEDS: hydrALAZINE HCL 25 MG TABLET (FP) PO SCH (18:41)
[2018-08-11] MEDS: NITROGLYCERIN SUBLINGUAL 1/150 0.4 MG TAB SL PRN (18:44)
[2018-08-11] MEDS ORDERED: PT OWN MED DRAWER 7, Y5N ONE (20:47)
[2018-08-11] MEDS: PANTOPRAZOLE SODIUM 80 MG in SODIUM CHLORIDE 100 ML IVPB SCH (21:06)
[2018-08-11] MEDS: ATORVASTATIN CA 80 MG TABLET (FP) PO SCH (21:07)
[2018-08-12 00:48] LABS: BASO % 0.8 % (0-2.0); EOS % 1.2 % (0-4.5); HEMATOCRIT 21.3 % (32.4-45.2); LYMPH % 17.2 % (8-40); MCH 30.6 pg (25.7-33.7); MCHC 32.6 g/dl (32.0-36.0); MEAN CELL VOLUME 93.8 fl (80-96); MEAN PLT VOLUME 10.3 fl (7.5-11.1); MONO % 8.2 % (3.8-10.2); NEUT % 72.6 % (42.8-82.8); PLATELET COUNT 183 K/MM3 (134-434); RBC 2.27 M/mm3 (3.60-5.2); RDW 16.5 % (11.6-15.6)
[2018-08-12] MEDS: METOCLOPRAMIDE HCL INJECTION 10 MG/2 ML VIAL IVPUSH SCH ×3 (01:16→17:11)
[2018-08-12] MEDS: PANTOPRAZOLE SODIUM 80 MG in SODIUM CHLORIDE 100 ML IVPB SCH ×2 (05:16→16:00)
[2018-08-12] MEDS: hydrALAZINE HCL 25 MG TABLET (FP) PO SCH ×3 (05:16→21:17)
[2018-08-12 07:59] LABS: HEMATOCRIT 21.4 % (32.4-45.2); MCHC 32.9 g/dl (32.0-36.0); MEAN CELL VOLUME 94.1 fl (80-96); MEAN PLT VOLUME 10.9 fl (7.5-11.1); RBC 2.27 M/mm3 (3.60-5.2); WHITE BLOOD COUNT 7.8 K/mm3 (4.0-10.0)
[2018-08-12 08:03] LABS: ALBUMIN 2.9 g/dl (3.4-5.0); ALK PHOS 191 U/L (45-117); ANION GAP 10 MMOL/L (8-16); BILIRUBIN,TOTAL 0.3 mg/dL (0.2-1); CALCIUM 7.5 mg/dL (8.5-10.1); CHLORIDE 100 mmol/L (98-107); CO2 24 mmol/L (21-32); CREATININE 4.6 mg/dL (0.55-1.3); GLUCOSE,RANDOM 99 mg/dL (74-106); MAGNESIUM 2.3 mg/dL (1.8-2.4); PHOSPHOROUS 2.3 mg/dL (2.5-4.9); POTASSIUM 4.4 mmol/L (3.5-5.1); SGOT/AST 19 U/L (15-37); SGPT/ALT 21 U/L (13-61); SODIUM 134 mmol/L (136-145); TOT PROT 5.5 g/dl (6.4-8.2)
--- NOTE | 2018-08-12 08:12 | PN ---
Physical Exam: SUBJECTIVE: Patient seen and examined OBJECTIVE: Vital Signs Period Temp Pulse Resp BP Sys/Rodriguez Pulse Ox Last 24 Hr 97.3 F-98.4 F 63-72 16-24 105-156/49-66 100-100 GENERAL: The patient is awake, alert, and fully oriented, in no acute distress. HEAD: Normal with no signs of trauma. EYES: PERRL, extraocular movements intact, sclera anicteric, conjunctiva clear. No ptosis. ENT: Ears normal, nares patent, oropharynx clear without exudates, moist mucous membranes. NECK: Trachea midline, full range of motion, supple. LUNGS: Breath sounds equal, clear to auscultation bilaterally, no wheezes, no crackles, no accessory muscle use. HEART: Regular rate and rhythm, S1, S2 without murmur, rub or gallop. ABDOMEN: Soft, nontender, nondistended, normoactive bowel sounds, no guarding, no rebound, no hepatosplenomegaly, no masses. EXTREMITIES: 2+ pulses, warm, well-perfused, no edema. NEUROLOGICAL: Cranial nerves II through XII grossly intact. Normal speech, gait not observed. PSYCH: Normal mood, normal affect. SKIN: Warm, dry, normal turgor, no rashes or lesions noted Laboratory Results - last 24 hr 08/11/18 08/11/18 08/11/18 11:00 11:30 11:30 WBC RBC Hgb Hct MCV MCH MCHC RDW Plt Count No Result Required. MPV Absolute Neuts (auto) Neutrophils % Lymphocytes % Monocytes % Eosinophils % Basophils % Nucleated RBC % 0 PT with INR 10.30 INR 0.87 Sodium Potassium Chloride Carbon Dioxide Anion Gap BUN Creatinine Est GFR (CKD-EPI)AfAm Est GFR (CKD-EPI)NonAf Random Glucose Hemoglobin A1c % Calcium Phosphorus Magnesium Total Bilirubin AST ALT Alkaline Phosphatase Creatine Kinase Troponin I Total Protein Albumin Stool Occult Blood Positive Blood Type Antibody Screen Crossmatch 08/11/18 08/11/18 08/11/18 11:30 11:30 13:16 WBC 7.2 RBC 1.93 L Hgb 6.0 L* Hct 18.0 L D MCV 93.1 MCH 31.2 MCHC 33.5 RDW 16.5 H Plt Count 202 D MPV 10.2 D Absolute Neuts (auto) 5.7 Neutrophils % 79.4 Lymphocytes % 12.0 D Monocytes % 7.0 Eosinophils % 1.0 Basophils % 0.6 Nucleated RBC % 0 PT with INR INR Sodium 134 L Potassium 3.8 Chloride 100 Carbon Dioxide 25 Anion Gap 10 BUN 39.0 H Creatinine 3.0 H Est GFR (CKD-EPI)AfAm 17.03 Est GFR (CKD-EPI)NonAf 14.69 Random Glucose 115 H Hemoglobin A1c % Calcium 8.1 L Phosphorus Magnesium Total Bilirubin 0.2 AST 20 ALT 27 Alkaline Phosphatase 198 H Creatine Kinase 39 Troponin I < 0.02 Total Protein 6.2 L Albumin 3.2 L Stool Occult Blood Blood Type O POSITIVE Antibody Screen Negative Crossmatch See Detail 08/11/18 08/12/18 08/12/18 19:05 00:00 00:00 WBC 8.0 RBC 2.27 L Hgb 7.0 L Hct 21.3 L D MCV 93.8 MCH 30.6 MCHC 32.6 RDW 16.5 H Plt Count 183 MPV 10.3 Absolute Neuts (auto) 5.8 Neutrophils % 72.6 Lymphocytes % 17.2 D Monocytes % 8.2 Eosinophils % 1.2 Basophils % 0.8 Nucleated RBC % 0 PT with INR INR Sodium Potassium Chloride Carbon Dioxide Anion Gap BUN Creatinine Est GFR (CKD-EPI)AfAm Est GFR (CKD-EPI)NonAf Random Glucose Hemoglobin A1c % 5.1 Calcium Phosphorus Magnesium Total Bilirubin AST ALT Alkaline Phosphatase Creatine Kinase 60 Troponin I 0.02 Total Protein Albumin Stool Occult Blood Blood Type Antibody Screen Crossmatch 08/12/18 06:49 WBC RBC Hgb Hct MCV MCH MCHC RDW Plt Count MPV Absolute Neuts (auto) Neutrophils % Lymphocytes % Monocytes % Eosinophils % Basophils % Nucleated RBC % PT with INR INR Sodium 134 L Potassium 4.4 Chloride 100 Carbon Dioxide 24 Anion Gap 10 BUN 62.0 H Creatinine 4.6 H Est GFR (CKD-EPI)AfAm 10.16 Est GFR (CKD-EPI)NonAf 8.76 Random Glucose 99 Hemoglobin A1c % Calcium 7.5 L Phosphorus 2.3 L Magnesium 2.3 Total Bilirubin 0.3 AST 19 ALT 21 Alkaline Phosphatase 191 H Creatine Kinase Troponin I < 0.02 Total Protein 5.5 L Albumin 2.9 L Stool Occult Blood Blood Type Antibody Screen Crossmatch Active Medications Generic Name Dose Route Start Last Admin Trade Name Freq PRN Reason Stop Dose Admin Acetaminophen 650 mg 08/11/18 17:32 Tylenol - PO Q6H PRN PAIN Atorvastatin Calcium 80 mg 08/11/18 22:00 08/11/18 21:07 Lipitor - PO 80 mg HS GRAYSON Administration Cinacalcet 60 mg 08/12/18 10:00 Sensipar - PO DAILY GRAYSON Hydralazine HCl 25 mg 08/11/18 18:00 08/12/18 05:16 Apresoline - PO 25 mg TID GRAYSON Administration Pantoprazole Sodium 80 mg/ 100 mls @ 10 mls/hr 08/11/18 18:00 08/12/18 05:16 Sodium Chloride IVPB 10 mls/hr Q10H GRAYSON Administration 8 MG/HR Isosorbide Mononitrate 30 mg 08/12/18 10:00 Imdur - PO DAILY GRAYSON Metoclopramide HCl 10 mg 08/11/18 18:15 08/12/18 01:16 Reglan Injection - IVPUSH 10 mg Q8H-IV GRAYSON Administration Nitroglycerin 0.4 mg 08/11/18 17:22 08/11/18 18:44 Nitrostat - SL 0.4 mg Q5M PRN Administration FOR CHEST PAIN History of Present Illness: Ms. Posey is a 72 yo F with significant history of ESRD on HD (//), CAD s/ p CABG, prior CVA, chronic anemia, PUD who presents to the ED from dialysis due to weakness and anemia. Pt s/p recent admission for chest pain, troponin negative, s/p stress test which revealed large area of postero-lateral wall ischemia. This was complicated by two episodes of bright red blood per rectum and patient was transferred to [facility]. Since discharge from [facility], pt notes decreased po intake and dark stool. While at dialysis, she passed out. She had three hours of dialysis before loss of consciousness. She reported that her hands felt weak. She reports the night before she did not eat much due to abdominal pain from a suspected abdominal hernia and had one black bowel movement. Currently, pt reports that she feels tired and weak. She has felt lightheaded at prior dialysis treatments, but did not lose consciousness. She no longer feels dizzy. She denies any chest pain, shortness of breath, abdominal pain currently, urinary incontinence/frequency, hematuria, constipation or diarrhea. ASSESSMENT/PLAN: Vending Service Technician used for assessment Chest Pain Coronary Artery Disease -PT had positve stress 06/28/2018 ( Large Severe Intensity Posterior Lateral Ischemia) Cardiology deemed not a surgical candidate and to manage medically -3 Negative Troponins -EKG with some Ischemic Changes Per Dr. Ginger Del Rio upon admit -Echo Ordered -Nitro SL PRN -Hold ASA due to GI Bleed -Holding Statin due to NPO -Holding Plavix for Cards Consult -Continue home dose of Isosorbide ER 30mg PO Daily -Awaiting Cardiology Consult Acute Blood Loss Secondary to Acute GI Bleed -Positive Fecal Occult Blood -Dark Tarry Stools -Hgb 7.0 after 1 unit PRBC -GI Consulted (Dr. Ferris) ---Impression: The melena suggest a more proximal source of bleeding than the colon. The combination of Plavix and aspirin may be causing erosive gastritis/duodenitis or ulcer disease. She may alternatively be bleeding from small bowel vascular ectasias and should ultimatey have capsule endoscopy. If bleeding persists an EGD will be undertaken but for now needs resuscitation with PRBCs. Magdiel start PPI drip. Her postprandial vomiting is more likely to reflect gastroparesis than ulcer disease given that she had an EGD just a few weeks ago. History of diverticular hemorrhage Plan: Transfuse PPI drip Reglan CTA if hemorrhage ensues May need repeat EGD Ultimately needs a capsule endoscopy -Will continue PPI Drip and Reglan -Daily CBC ESRD -Dialysis at [facility] in [facility] -Monitor Electrolytes -Continue Sensipar CHF -Monitor I&Os -Daily Weights HTN -Continue Hydrylazine DM -Patients states she does not take any medication and manages her diabetes with diet -Daily BGM -CkT2u-4.1 Prophylactic Measures -OOB with assist FEN -NPO -Once PT is able to eat will place on Renal/Cardiac Diet -DVT proph (Scds) Disp -Maintain as inpatient -Full Code -DC Planning Visit type - Emergency Visit Emergency Visit: Yes ED Registration Date: 08/11/18 Care time: The patient presented to the Emergency Department on the above date and was hospitalized for further evaluation of their emergent condition. - New Patient This patient is new to me today: Yes Date on this admission: 08/12/18 - Critical Care Critical Care patient: No
[2018-08-12] MEDS ORDERED: PT OWN MED DRAWER 7, Y5N ONE (09:35)
[2018-08-12] MEDS ORDERED: PANTOPRAZOLE SODIUM 40 MG VIAL IVPUSH SCH (10:00)
[2018-08-12] MEDS: ISOSORBIDE MONONITRATE 30 MG TAB.SR.24H (FP) PO SCH (10:26)
[2018-08-12 10:37] LABS: PLATELET COUNT 212 K/MM3 (134-434)
--- NOTE | 2018-08-12 13:10 | EKG ---
Test Reason : Blood Pressure : / mmHG Vent. Rate : 064 BPM Atrial Rate : 064 BPM P-R Int : 198 ms QRS Dur : 094 ms QT Int : 432 ms P-R-T Axes : 037 013 153 degrees QTc Int : 445 ms NORMAL SINUS RHYTHM LEFT VENTRICULAR HYPERTROPHY WITH REPOLARIZATION ABNORMALITY ABNORMAL ECG Confirmed by MD SHERIDAN, ANUJ ([id number]) on 08/12/2018 1:10:27 PM Referred By: Confirmed By:ANUJ SWARTZ MD
--- NOTE | 2018-08-12 13:13 | EKG ---
Test Reason : Blood Pressure : / mmHG Vent. Rate : 070 BPM Atrial Rate : 070 BPM P-R Int : 184 ms QRS Dur : 096 ms QT Int : 470 ms P-R-T Axes : 024 015 070 degrees QTc Int : 507 ms NORMAL SINUS RHYTHM LEFT VENTRICULAR HYPERTROPHY NONSPECIFIC ST AND T WAVE ABNORMALITY PROLONGED QT ABNORMAL ECG Confirmed by MD SHERIDAN, ANUJ ([id number]) on 08/12/2018 1:12:30 PM Referred By: Confirmed By:ANUJ SWARTZ MD
[2018-08-12] MEDS: CINACALCET HCL 30 MG TAB (FP) PO SCH (14:06)
[2018-08-12] MEDS ORDERED: SODIUM CHLORIDE 250 ML IV PRN (14:18)
[2018-08-12 14:22] VITALS: BMI 34.0
--- NOTE | 2018-08-12 14:22 | CON.NEP ---
Consult Consult Specialty:: nephrology Reason for Consultation:: esrd - History of Present Illness Chief Complaint: bleeding History of Present Illness: Pt came from dialysis after passing out. Did not complete her treatment. She was very anemic in the emergency room and was transfused 1 unit. 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: CVA Cardio/Vascular: Yes: CAD, CHF, HTN, SD, Hyperlipdemia Gastrointestinal: Yes: Diverticulosis, Other (C-Diff) Hepatobiliary: Yes: Cholelithiasis Renal/: Yes: Renal Failure, Hemodialysis ...: No Infectious Disease: Yes: C-Diff ( was a chronic smoker) Psych: Yes: Anxiety Musculoskeletal: Yes: Chronic low back pain Endocrine: Yes: Diabetes Mellitus (Pt states she is diet controlled and does not take any medication for DM) - Past Surgical History Past Surgical History: Yes: AV Fistula/Graft, CABG, Hernia Repair ([facility]) Additional Surgical History: vertical midline laparotomy incision with h/o "abdominal mass" excised at [facility]. A previously noted retroperitoneal mass seen on a 2011 [address] scan is no longer evident - Alcohol/Substance Use Hx Alcohol Use: No History of Substance Use: reports: None - Smoking History Smoking history: Never smoked Have you smoked in the past 12 months: No Aproximately how many cigarettes per day: 0 - Social History Usual Living Arrangement: With Child ADL: Independent History of Recent Travel: No Home Medications - Allergies Allergies/Adverse Reactions: Allergies Allergy/AdvReac Type Severity Reaction Status Date / Time No Known Allergies Allergy Verified 06/26/18 08:49 - Home Medications Home Medications: Ambulatory Orders Aspirin [Aspirin EC] 81 mg PO DAILY 06/26/18 Calcium Carbonate [Tums] 500 mg PO DAILY 06/26/18 Atorvastatin Ca [Lipitor] 80 mg PO HS 08/11/18 Cinacalcet HCl [Sensipar] 60 mg PO DAILY 08/11/18 Clopidogrel Bisulfate [Plavix] 75 mg PO DAILY 08/11/18 Hydralazine HCl 25 mg PO Q8H 08/11/18 Isosorbide Mononitrate [Isosorbide Mononitrate ER] 30 mg PO DAILY 08/11/18 Pantoprazole Sodium [Protonix] 40 mg PO DAILY 08/11/18 Review of Systems - Review of Systems Constitutional: reports: Weakness Eyes: reports: No Symptoms HENT: reports: No Symptoms Neck: reports: No Symptoms Cardiovascular: reports: No Symptoms Respiratory: reports: Exercise Intolerance Gastrointestinal: reports: Abdominal Pain, Melena Genitourinary: reports: No Symptoms Breasts: reports: No Symptoms Reported, Lumps Integumentary: reports: No Symptoms Neurological: reports: No Symptoms Endocrine: reports: No Symptoms Hematology/Lymphatic: reports: No Symptoms Psychiatric: reports: No Symptoms Nephrology Consult - Height Height: 4 ft 10 in - Weight Weight: 163 lb - BMI Body Mass Index (BMI): 34.0 - Lab Results CBC,BMP: CBC, BMP 08/12/18 06:49 08/12/18 06:49 Anion Gap: Anion Gap Anion Gap 10 MMOL/L (8-16) 08/12/18 06:49 - Imaging Chest X-ray: Report Reviewed - Physical Examination Vital Signs: Vital Signs Temperature 98.2 F 08/12/18 10:00 Pulse Rate 76 08/12/18 10:00 Respiratory Rate 20 08/12/18 10:00 Blood Pressure 136/53 L 08/12/18 10:00 O2 Sat by Pulse Oximetry (%) 100 08/11/18 18:06 Constitutional: Yes: Well Nourished, No Distress, Calm Eyes: Yes: Conjunctiva Clear, EOM Intact HENT: Yes: Atraumatic, Normocephalic Neck: Yes: Supple, Trachea Midline Cardiovascular: Yes: Regular Rate and Rhythm, Murmur Respiratory: Yes: Regular, CTA Bilaterally Gastrointestinal: Yes: Normal Bowel Sounds Renal/: Yes: WNL Access for Hemodialysis: AV Graft Musculoskeletal: Yes: WNL Edema: No Integumentary: Yes: WNL Neurological: Yes: Alert, Oriented Psychiatric: Yes: Alert, Oriented Assessment/Plan IMPRESSION erd htn GI bleeding possibly upper tract given melena 2 hyperparathyroidism on cinaclcet PLAN will dialyze tomorrow and transfuse during hd can start on a diet ddavp 0.3 mcg per kg x1 dc cinacalcet given possibility of GI bleeding MV
--- NOTE | 2018-08-12 14:57 | PN.GI ---
GI Progress Note Subjective: GI Note ( covering the [facility] GI service) Feeling much better so clear liquids were ordered. She has tolerated them. She had another black BM today. The Hb is 7 - Objective Vital Signs: Vital Signs Temperature 98.2 F 08/12/18 10:00 Pulse Rate 76 08/12/18 10:00 Respiratory Rate 20 08/12/18 10:00 Blood Pressure 136/53 L 08/12/18 10:00 O2 Sat by Pulse Oximetry (%) 100 08/11/18 18:06 Laboratory Tests 08/11/18 08/12/18 08/12/18 13:16 06:49 06:49 WBC 7.2 7.8 Hgb 6.0 L* 7.0 L Albumin 2.9 L Constitutional: Calm ...Auscultate: Yes: Normoactive Bowel Sounds ...Palpate: Yes: Soft, Other (nontender) Labs: CBC, BMP 08/12/18 06:49 08/12/18 06:49 INR, PTT INR 0.87 (0.83-1.09) 08/11/18 11:30 Assessment/Plan Impression: - Melena suggests a more proximal source of bleeding than the colon. The combination of Plavix and aspirin may be causing erosive gastritis/duodenitis or ulcer disease. She may alternatively be bleeding from small bowel vascular ectasias and should ultimately have capsule endoscopy. - Postprandial vomiting reflects gastroparesis given the response to Reglan. - History of diverticular hemorrhage Plan: -- Transfuse during dialysis tomorrow -- Switch PPI drip to BIDF dosing -- Continue Reglan -- CTA if hemorrhage ensues -- May need repeat EGD -- Ultimately needs a capsule endoscopy Problem List - Problems (1) Melena Code(s): K92.1 - MELENA (2) Vomiting Code(s): R11.10 - VOMITING, UNSPECIFIED (3) Diverticular hemorrhage Code(s): K57.31 - DVRTCLOS OF LG INT W/O PERFORATION OR ABSCESS W BLEEDING (4) Umbilical hernia without obstruction and without gangrene Code(s): K42.9 - UMBILICAL HERNIA WITHOUT OBSTRUCTION OR GANGRENE (5) Diabetes 1.5, managed as type 1 Code(s): E13.9 - OTHER SPECIFIED DIABETES MELLITUS WITHOUT COMPLICATIONS (6) Peripheral vascular disease Code(s): I73.9 - PERIPHERAL VASCULAR DISEASE, UNSPECIFIED (7) Anemia Code(s): D64.9 - ANEMIA, UNSPECIFIED Qualifiers: Anemia type: other cause Other causes of anemia: other cause, not classified Qualified Code(s): D64.89 - Other specified anemias (8) Dialysis patient Code(s): Z99.2 - DEPENDENCE ON RENAL DIALYSIS (9) ESRD (end stage renal disease) Code(s): N18.6 - END STAGE RENAL DISEASE (10) GI bleed Code(s): K92.2 - GASTROINTESTINAL HEMORRHAGE, UNSPECIFIED Qualifiers: GI bleed type/associated pathology: unspecified gastrointestinal hemorrhage type Qualified Code(s): K92.2 - Gastrointestinal hemorrhage, unspecified (11) HTN (hypertension) Code(s): I10 - ESSENTIAL (PRIMARY) HYPERTENSION (12) HTN (hypertension) Code(s): I10 - ESSENTIAL (PRIMARY) HYPERTENSION (13) Hx of CABG Code(s): Z95.1 - PRESENCE OF AORTOCORONARY BYPASS GRAFT (14) Positive PPD, treated Code(s): R76.11 - NONSPECIFIC REACTION TO SKIN TEST W/O ACTIVE TUBERCULOSIS (15) ESRD (end stage renal disease) Code(s): N18.6 - END STAGE RENAL DISEASE (16) Gastroparesis due to DM Code(s): E11.43 - TYPE 2 DIABETES W DIABETIC AUTONOMIC (POLY)NEUROPATHY; K31.84 - GASTROPARESIS
--- NOTE | 2018-08-12 19:34 | EKG ---
Test Reason : Blood Pressure : / mmHG Vent. Rate : 080 BPM Atrial Rate : 080 BPM P-R Int : 180 ms QRS Dur : 094 ms QT Int : 418 ms P-R-T Axes : 022 026 097 degrees QTc Int : 482 ms NORMAL SINUS RHYTHM NONSPECIFIC ST AND T WAVE ABNORMALITY PROLONGED QT ABNORMAL ECG WHEN COMPARED WITH ECG OF 11-AUG-2018 16:34, NONSPECIFIC T WAVE ABNORMALITY, WORSE IN INFERIOR LEADS NONSPECIFIC T WAVE ABNORMALITY HAS REPLACED INVERTED T WAVES IN LATERAL LEADS Confirmed by MD SHERIDAN, ANUJ ([id number]) on 08/12/2018 7:33:47 PM Referred By: Confirmed By:ANUJ SWARTZ MD
[2018-08-12] MEDS: NITROGLYCERIN SUBLINGUAL 1/150 0.4 MG TAB SL PRN ×2 (20:04→20:13)
[2018-08-12] MEDS: ATORVASTATIN CA 80 MG TABLET (FP) PO SCH (21:17)
[2018-08-12] MEDS: PANTOPRAZOLE SODIUM 40 MG VIAL IVPUSH SCH (21:17)
[2018-08-12] MEDS ORDERED: SIMETHICONE 80 MG TAB.CHEW (FP) PO PRN (21:49)
[2018-08-12] MEDS ORDERED: morphine CARPU-JECT 2 MG/1 ML DISP.SYRIN IVPUSH ONE (22:29)
[2018-08-12] MEDS ORDERED: MORPHINE SULFATE 2 MG/ML VIAL ONE (22:30)
--- NOTE | 2018-08-12 23:41 | PN ---
Progress Note (short form) - Note Progress Note: patient was having continuous chest pain overnight- trop was negative; EKG showed no significant changes form this afternoon's EKG,. patient was given sublingual nitro X3 and 2mg of morphine with minimal relief- spoke with cardiology health outcomes liaison who suggested to transfuse patient 1 more unit of PRBC's as her Hgb was 7 (should be at least 8 in cardiac patients) - patient will be getting HD tomorrow
[2018-08-13] MEDS ORDERED: PROCHLORPERAZINE INJECTION 10 MG/2 ML VIAL IVPB PRN (00:21)
[2018-08-13] MEDS: hydrALAZINE HCL 25 MG TABLET (FP) PO SCH ×3 (05:15→21:24)
[2018-08-13] MEDS: NITROGLYCERIN 2% OINTMENT - 1GM PACKET TD SCH ×2 (06:36→14:21)
[2018-08-13 07:33] LABS: HEMATOCRIT 23.5 % (32.4-45.2); HEMOGLOBIN 7.8 GM/dL (10.7-15.3); MCH 30.6 pg (25.7-33.7); MCHC 33.2 g/dl (32.0-36.0); MEAN CELL VOLUME 92.2 fl (80-96); MEAN PLT VOLUME 10.4 fl (7.5-11.1); PLATELET COUNT 188 K/MM3 (134-434); RBC 2.55 M/mm3 (3.60-5.2); RDW 16.2 % (11.6-15.6); WHITE BLOOD COUNT 10.2 K/mm3 (4.0-10.0)
--- NOTE | 2018-08-13 07:39 | PN ---
Progress Note, Physician Chief Complaint: complaining of chest, head, and generalized abdominal pain History of Present Illness: 72F was came to the ER after suffering a syncopal spell upon completion of dialysis. She is found to have a Hb 6. The history is obtained with a epic radiant analyst in the family. Concha has not eaten for the past 2 days due to nausea and vomiting. She denies hematemesis but does report black stools. She was transferred recently from here to [facility] after she presented with chest pain and rectal bleeding. A stress test revealed a large ischemic area. It is not clear whether or not stents were placed but she is now on Plavix ( suggesting that a stent was placed). While at [facility] she underwent a repeat EGD and colonoscopy and reports that noting was found. She has had repeated episodes of bleeding and earlier this year a CTA suggested a cecal source. Dr Teran performed a colonoscopy on 04/17 18 which revealed a single diverticulum within the cecum with a nonbleeding visible vessel which he endoclipped. Moderate diverticlosis was found in the descending and sigmoid colon. Dr Bell performed an EGD on 09/25/17 and described mild erosive gastritis and duodenitis. Dr Candelario found a diverticulum in the bulb of the duodenum during his 01/28/11 EGD. Concha reports that she has not been able to eat for the past 2 days due to postprandial vomiting. - Current Medication List Current Medications: Active Medications Acetaminophen (Tylenol -) 650 mg PO Q6H PRN PRN Reason: PAIN Last Admin: 08/12/18 21:19 Dose: 650 mg Atorvastatin Calcium (Lipitor -) 80 mg PO HS [facility] Last Admin: 08/12/18 21:17 Dose: 80 mg Cinacalcet (Sensipar -) 60 mg PO DAILY [facility] Last Admin: 08/12/18 14:06 Dose: 60 mg Hydralazine HCl (Apresoline -) 25 mg PO TID [facility] Last Admin: 08/13/18 05:15 Dose: 25 mg Sodium Chloride (Normal Saline -) 250 mls @ 3,000 mls/hr IV PRN PRN PRN Reason: Hypotension during Dialysis Stop: 08/13/18 14:18 Isosorbide Mononitrate (Imdur -) 30 mg PO DAILY [facility] Last Admin: 08/12/18 10:26 Dose: 30 mg Nitroglycerin (Nitro-Bid 2% Paste -) 0.5 inch TD Q6HPO [facility] Last Admin: 08/13/18 06:36 Dose: 0.5 inch Pantoprazole Sodium (Protonix Iv) 40 mg IVPUSH BID [facility] Last Admin: 08/12/18 21:17 Dose: 40 mg Prochlorperazine Edisylate (Compazine Injection -) 10 mg IVPB Q4H PRN PRN Reason: NAUSEA AND/OR VOMITING Simethicone (Mylicon -) 80 mg PO QID PRN PRN Reason: GAS Last Admin: 08/12/18 22:01 Dose: 80 mg - Objective Vital Signs: Vital Signs Temperature 98.1 F 08/13/18 06:00 Pulse Rate 91 H 08/13/18 06:15 Respiratory Rate 20 08/13/18 06:15 Blood Pressure 160/81 08/13/18 06:15 O2 Sat by Pulse Oximetry (%) 100 08/13/18 06:15 Constitutional: Yes: Well Nourished, Calm Eyes: Yes: WNL, Conjunctiva Clear, EOM Intact HENT: Yes: WNL, Atraumatic, Normocephalic Neck: Yes: WNL, Supple, Trachea Midline Cardiovascular: Yes: WNL, Regular Rate and Rhythm, Bradycardia Respiratory: Yes: WNL, Regular, CTA Bilaterally Gastrointestinal: Yes: WNL, Normal Bowel Sounds, Soft, Other (ventral hernia palpable) Genitourinary: Yes: WNL Musculoskeletal: Yes: WNL Extremities: Yes: Other (right wrist AV fistula with + bruit/thrill) Edema: No Peripheral Pulses WNL: Yes Integumentary: Yes: WNL Neurological: Yes: WNL, Alert, Oriented ...Motor Strength: WNL Psychiatric: Yes: WNL, Alert, Oriented Labs: CBC, BMP 08/12/18 06:49 INR, PTT INR 0.87 (0.83-1.09) 08/11/18 11:30 - ....Imaging Other: Report Reviewed ( Cath 07/09/18 1. Multi-vessel CAD, including: - MACHINE SETTER of the mLAD (distal vessel fills via WHEELER) - severe, calcified stenosis of a moderately sized, and isolated D1 - severe, calcified stenosis of the pLCx (largest OM fills via SVG) - MACHINE SETTER of the pRCA (distal vessel fills via SVG)), Other ( EGD 07/05/18 Findings : - The examined esophagus was normal. The Z-line was at 36cm and regular. - One 3 mm sessile polyp with no stigmata of recent bleeding was found in the gastric fundus. The polyp was removed with a cold biopsy forceps. Resection and retrieval were complete. - Thickened erythematous folds with several overlying non-bleeding, superficial gastric ulcers with no stigmata of bleeding were found in the gastric antrum. The largest lesion was 3 mm in largest dimension. Biopsies were taken with a cold forceps for Helicobacter pylori testing. - Patchy erythematous mucosa without active bleeding and with no stigmata of bleeding was found in the duodenal bulb and in the second portion of the duodenum.) Problem List - Problems (1) CAD (coronary artery disease) Assessment/Plan: Appreciate cardiology consultation.Patient is at high risk for stent thrombosis off dual antiplatelet therapy. Recommend resuming DAPT in addition to PPI as soon as possible. Given her recurrent bleeding history would recommend 3-6 months of DAPT then Plavix alone. Recommended to have staged PCI of AVC/rPL in 4 weeks Nitro paste dc'd as per cardiology If H/H remains stable will add beta demetrius as per Dr Matos elevated troponins elevated most likely secondary to renal failure Code(s): I25.10 - ATHSCL HEART DISEASE OF [place] CORONARY ARTERY W/O ANG PCTRS (2) Prophylactic measure Assessment/Plan: FEN renal diet monitor electrolytes HD MWF DVT proph no chemical AC at this time with GIB SCDs early ambulation Dispo patient accepted to medical bed at [facility], awaiting bed availability Code(s): Z29.9 - ENCOUNTER FOR PROPHYLACTIC MEASURES, UNSPECIFIED (3) Anemia Assessment/Plan: pt was given two units prbc on HD seen by GI Dr Eddy-appreciate consultation. [facility] endoscopy/ colonoscopy records reviewed, patient with internal hemorrhoids and sigmoid diverticulosis, a gastric polyp and small gastric ulceration in June 2018. Would recommend transfer to [facility] for further evaluation/management - possible repeat EGD/SBE and VCE Code(s): D64.9 - ANEMIA, UNSPECIFIED Qualifiers: Anemia type: other cause Other causes of anemia: other cause, not classified Qualified Code(s): D64.89 - Other specified anemias (4) HLD (hyperlipidemia) Code(s): E78.5 - HYPERLIPIDEMIA, UNSPECIFIED (5) HTN (hypertension) Assessment/Plan: continue hydralazine Code(s): I10 - ESSENTIAL (PRIMARY) HYPERTENSION (6) Dialysis patient Assessment/Plan: HD M/W/F schedule renal diet Code(s): Z99.2 - DEPENDENCE ON RENAL DIALYSIS (7) GI bleed Assessment/Plan: Transfuse 2u during dialysis tomorrow to be transfered to [facility] for capsule study as per GI monitor H/H Code(s): K92.2 - GASTROINTESTINAL HEMORRHAGE, UNSPECIFIED Qualifiers: GI bleed type/associated pathology: unspecified gastrointestinal hemorrhage type Qualified Code(s): K92.2 - Gastrointestinal hemorrhage, unspecified (8) Melena Assessment/Plan: no melena noted today monitor stools monitor H/H continue PPI Code(s): K92.1 - MELENA Visit type - Emergency Visit Emergency Visit: Yes ED Registration Date: 08/11/18 Care time: The patient presented to the Emergency Department on the above date and was hospitalized for further evaluation of their emergent condition. - New Patient This patient is new to me today: Yes Date on this admission: 08/13/18 - Critical Care Critical Care patient: No - Discharge Referral Referred to [facility] Med P.C.: No
--- NOTE | 2018-08-13 09:19 | CON.CARD ---
Consult Consult Specialty:: cardiology Reason for Consultation:: Syncope - History of Present Illness History of Present Illness: 72 F ESRD , CABG 2004, ho GI bleeding,. She ia admitted with melena severe anemia and syncope at HD. She was admitted 06/2018 with chest pain and had NST positive with severe posterolateral wall ischemia. Patient was treated with ASA and IV Heparin and was noted to have hematochezia. At [facility], she had colonoscopy on 07/03 which showed - Non-bleeding internal hemorrhoids. Possible source of recent bleeding and Diverticulosis in the sigmoid colon. Possible source of recent bleeding. No active bleeding noted. EGD was performed07/05, showed normal esophagus, one gastric polyp which was resected, non-bleeding superficial gastric ulcer with no stigmata of bleeding, ulcer was biopsied. Also noted to have erythematous duodenopathy. cardiac cath 07/09, found to have multi-vessel CAD. Culprit lesion identified as severe stenosis in body of SVG between D2 and OM2 and DIANA x 2 placed. Cath 07/09/18 1. Multi-vessel CAD, including: - EQUIP TECH of the mLAD (distal vessel fills via WHEELER) - severe, calcified stenosis of a moderately sized, and isolated D1 - severe, calcified stenosis of the pLCx (largest OM fills via SVG) - EQUIP TECH of the pRCA (distal vessel fills via SVG) - severe stenosis of the AVC (isolating a moderately sized rPL) 2. Patent WHEELER to LAD, SVG to rPDA, SVG to D2 jump to OM2 3. Severe stenosis in the body of the SVG between the D2 limb and OM2 limb ( culprit) 4. Elevated LVEDP 5. No SVG between D2 and OM2 and DIANA x 2 placed Recommended to have staged PCI of AVC/rPL in 4 weeks EGD 07/05/18 Findings: - The examined esophagus was normal. The Z-line was at 36cm and regular. - One 3 mm sessile polyp with no stigmata of recent bleeding was found in the gastric fundus. The polyp was removed with a cold biopsy forceps. Resection and retrieval were complete. - Thickened erythematous folds with several overlying non-bleeding, superficial gastric ulcers with no stigmata of bleeding were found in the gastric antrum. The largest lesion was 3 mm in largest dimension. Biopsies were taken with a cold forceps for Helicobacter pylori testing. - Patchy erythematous mucosa without active bleeding and with no stigmata of bleeding was found in the duodenal bulb and in the second portion of the duodenum. 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: CVA Cardio/Vascular: Yes: CAD, CHF, HTN, RI, Hyperlipdemia Gastrointestinal: Yes: Diverticulosis, Other (C-Diff) Hepatobiliary: Yes: Cholelithiasis Renal/: Yes: Renal Failure, Hemodialysis ...: No Infectious Disease: Yes: C-Diff ( was a chronic smoker) Psych: Yes: Anxiety Musculoskeletal: Yes: Chronic low back pain Endocrine: Yes: Diabetes Mellitus (Pt states she is diet controlled and does not take any medication for DM) - Past Surgical History Past Surgical History: Yes: AV Fistula/Graft, CABG, Hernia Repair ([facility]) Additional Surgical History: vertical midline laparotomy incision with h/o "abdominal mass" excised at [facility]. A previously noted retroperitoneal mass seen on a 2011 CT scan is no longer evident - Alcohol/Substance Use Hx Alcohol Use: No History of Substance Use: reports: None - Smoking History Smoking history: Never smoked Have you smoked in the past 12 months: No Aproximately how many cigarettes per day: 0 - Social History Usual Living Arrangement: With Child ADL: Independent History of Recent Travel: No Home Medications - Allergies Allergies/Adverse Reactions: Allergies Allergy/AdvReac Type Severity Reaction Status Date / Time No Known Allergies Allergy Verified 06/26/18 08:49 - Home Medications Home Medications: Ambulatory Orders Aspirin [Aspirin EC] 81 mg PO DAILY 06/26/18 Calcium Carbonate [Tums] 500 mg PO DAILY 06/26/18 Atorvastatin Ca [Lipitor] 80 mg PO HS 08/11/18 Cinacalcet HCl [Sensipar] 60 mg PO DAILY 08/11/18 Clopidogrel Bisulfate [Plavix] 75 mg PO DAILY 08/11/18 Hydralazine HCl 25 mg PO Q8H 08/11/18 Isosorbide Mononitrate [Isosorbide Mononitrate ER] 30 mg PO DAILY 08/11/18 Pantoprazole Sodium [Protonix] 40 mg PO DAILY 08/11/18 Review of Systems - Review of Systems Constitutional: reports: Lethargy, Weakness Eyes: reports: No Symptoms HENT: reports: No Symptoms Neck: reports: No Symptoms Cardiovascular: reports: No Symptoms Respiratory: reports: No Symptoms Gastrointestinal: reports: No Symptoms Genitourinary: reports: No Symptoms Vital Signs: Vital Signs Temperature 98.3 F 08/13/18 07:05 Pulse Rate 75 08/13/18 07:40 Respiratory Rate 18 08/13/18 07:40 Blood Pressure 141/47 L 08/13/18 07:40 O2 Sat by Pulse Oximetry (%) 100 08/13/18 06:15 Constitutional: Yes: Well Nourished, No Distress Eyes: Yes: Conjunctiva Clear HENT: Yes: Atraumatic, Normocephalic Neck: Yes: Supple, Trachea Midline Respiratory: Yes: Regular, CTA Bilaterally Gastrointestinal: Yes: Normal Bowel Sounds JVD: No Carotid Bruit: No PMI: Non-Displaced Heart Sounds: Yes: S1, S2 Murmur: No: Systolic Murmur, Diastolic Murmur Edema: No - Other Data Labs, Other Data: CBC, BMP 08/13/18 06:50 08/12/18 06:49 INR, PTT INR 0.87 (0.83-1.09) 08/11/18 11:30 Troponin, BNP 08/12/18 08/13/18 21:05 06:50 Troponin I < 0.02 0.11 H Troponin, BNP 08/12/18 08/13/18 21:05 06:50 Troponin I < 0.02 0.11 H NSR NL AXIS ANTEROLATERAL ISCHEMIA. Problem List - Problems (1) Anemia Code(s): D64.9 - ANEMIA, UNSPECIFIED Qualifiers: Anemia type: other cause Other causes of anemia: other cause, not classified Qualified Code(s): D64.89 - Other specified anemias (2) Diverticular hemorrhage Code(s): K57.31 - DVRTCLOS OF LG INT W/O PERFORATION OR ABSCESS W BLEEDING (3) Melena Code(s): K92.1 - MELENA (4) CAD (coronary artery disease) Code(s): I25.10 - ATHSCL HEART DISEASE OF [place] CORONARY ARTERY W/O ANG PCTRS Assessment/Plan Recent complex stenting in the vein graft to the second diagonal. Recurrent GI bleeding resulting in syncope. Recent Colonoscopy and EGD and another institution-see HPI. Mild TP elevation in the settin of GI bleed and ESRD. 1. Patient is at high risk for stent thrombosis off dual antiplatelet therapy. Recommend resuming DAPT in addition to PPI as soon as possible. Given her recurrent bleeding history would recommend 3-6 months of DAPT then Plavix alone. 2. No cardiac contraindications to repeat EGD or colonoscopy. 3. DC Nitro-paste 4. If H/H remains stable will add Beta demetrius. 5. Minimal TP elevation in the setting of poor clearance possibly from renal disease and related to demand mediated myocardial injury. Medical management to be continued.
[2018-08-13] MEDS: PANTOPRAZOLE SODIUM 40 MG VIAL IVPUSH SCH ×2 (10:43→21:24)
[2018-08-13] MEDS: ISOSORBIDE MONONITRATE 30 MG TAB.SR.24H (FP) PO SCH (10:43)
[2018-08-13] MEDS: CINACALCET HCL 30 MG TAB (FP) PO SCH (10:43)
--- NOTE | 2018-08-13 11:17 | EKG ---
Test Reason : Blood Pressure : / mmHG Vent. Rate : 081 BPM Atrial Rate : 081 BPM P-R Int : 210 ms QRS Dur : 100 ms QT Int : 430 ms P-R-T Axes : 030 019 -45 degrees QTc Int : 499 ms SINUS RHYTHM WITH 1ST DEGREE A-V BLOCK PROLONGED QT ABNORMAL ECG WHEN COMPARED WITH ECG OF 12-AUG-2018 14:44, ID INTERVAL HAS INCREASED Confirmed by MICHELLE HEATH MD ([id number]) on 08/13/2018 11:17:20 AM Referred By: DR. PARDO Confirmed By:MICHELLE HEATH MD
--- NOTE | 2018-08-13 11:21 | PN ---
Progress Note, Physician History of Present Illness: Pt seen and examined at bedside. She tolerated HD. She is awake and alert. - Current Medication List Current Medications: Active Medications Acetaminophen (Tylenol -) 650 mg PO Q6H PRN PRN Reason: PAIN Last Admin: 08/12/18 21:19 Dose: 650 mg Atorvastatin Calcium (Lipitor -) 80 mg PO HS [facility] Last Admin: 08/12/18 21:17 Dose: 80 mg Cinacalcet (Sensipar -) 60 mg PO DAILY [facility] Last Admin: 08/13/18 10:43 Dose: 60 mg Hydralazine HCl (Apresoline -) 25 mg PO TID [facility] Last Admin: 08/13/18 05:15 Dose: 25 mg Sodium Chloride (Normal Saline -) 250 mls @ 3,000 mls/hr IV PRN PRN PRN Reason: Hypotension during Dialysis Stop: 08/13/18 14:18 Isosorbide Mononitrate (Imdur -) 30 mg PO DAILY [facility] Last Admin: 08/13/18 10:43 Dose: 30 mg Nitroglycerin (Nitro-Bid 2% Paste -) 0.5 inch TD Q6HPO [facility] Last Admin: 08/13/18 06:36 Dose: 0.5 inch Pantoprazole Sodium (Protonix Iv) 40 mg IVPUSH BID [facility] Last Admin: 08/13/18 10:43 Dose: 40 mg Prochlorperazine Edisylate (Compazine Injection -) 10 mg IVPB Q4H PRN PRN Reason: NAUSEA AND/OR VOMITING Simethicone (Mylicon -) 80 mg PO QID PRN PRN Reason: GAS Last Admin: 08/12/18 22:01 Dose: 80 mg - Objective Vital Signs: Vital Signs Temperature 98.3 F 08/13/18 07:05 Pulse Rate 75 08/13/18 10:45 Respiratory Rate 18 08/13/18 10:45 Blood Pressure 157/67 08/13/18 10:45 O2 Sat by Pulse Oximetry (%) 100 08/13/18 06:15 Constitutional: Yes: Calm Eyes: Yes: Conjunctiva Clear HENT: Yes: Atraumatic Cardiovascular: Yes: S1, S2 Respiratory: Yes: CTA Bilaterally Gastrointestinal: Yes: Soft Genitourinary: Yes: WNL Musculoskeletal: Yes: WNL Edema: No Neurological: Yes: Oriented Psychiatric: Yes: Oriented Labs: CBC, BMP 08/13/18 06:50 08/12/18 06:49 INR, PTT INR 0.87 (0.83-1.09) 08/11/18 11:30 Problem List - Problems (1) Anemia Code(s): D64.9 - ANEMIA, UNSPECIFIED Qualifiers: Anemia type: other cause Other causes of anemia: other cause, not classified Qualified Code(s): D64.89 - Other specified anemias (2) Diabetes 1.5, managed as type 1 Code(s): E13.9 - OTHER SPECIFIED DIABETES MELLITUS WITHOUT COMPLICATIONS (3) ESRD (end stage renal disease) Code(s): N18.6 - END STAGE RENAL DISEASE Assessment/Plan Current Medications Generic Name Dose Route Start Last Admin Trade Name Freq PRN Reason Stop Dose Admin Acetaminophen 650 mg 08/11/18 17:32 08/12/18 21:19 Tylenol - PO 650 mg Q6H PRN Administration PAIN Atorvastatin Calcium 80 mg 08/11/18 22:00 08/12/18 21:17 Lipitor - PO 80 mg HS [facility] Administration Cinacalcet 60 mg 08/12/18 10:00 08/13/18 10:43 Sensipar - PO 60 mg DAILY [facility] Administration Hydralazine HCl 25 mg 08/11/18 18:00 08/13/18 05:15 Apresoline - PO 25 mg TID [facility] Administration Sodium Chloride 250 mls @ 3,000 mls/hr 08/12/18 14:18 Normal Saline - IV 08/13/18 14:18 PRN PRN Hypotension during Dialysis Isosorbide Mononitrate 30 mg 08/12/18 10:00 08/13/18 10:43 Imdur - PO 30 mg DAILY [facility] Administration Nitroglycerin 0.5 inch 08/13/18 06:31 08/13/18 06:36 Nitro-Bid 2% Paste - TD 0.5 inch Q6HPO [facility] Administration Pantoprazole Sodium 40 mg 08/12/18 22:00 08/13/18 10:43 Protonix Iv IVPUSH 40 mg BID [facility] Administration Prochlorperazine Edisylate 10 mg 08/13/18 00:21 Compazine Injection - IVPB Q4H PRN NAUSEA AND/OR VOMITING Simethicone 80 mg 08/12/18 21:49 08/12/18 22:01 Mylicon - PO 80 mg QID PRN Administration GAS Impression 1. ESRD 2. GI bleed 3. CAD 4. HTN 5. DM 6. anemia 7. hx syncope 8. 1.4 cm left adrenal adenoma Plan - HD today - monitor hg - transfuse as needed - next HD on Monday
[2018-08-13] MEDS ORDERED: PT OWN MED DRAWER 7, Y5N ONE (13:24)
--- NOTE | 2018-08-13 15:09 | PN ---
Progress Note (short form) - Note Progress Note: Patient seen and examined Labs reviewed Last bm was yesterday and was black. Denies abdominal pain [facility] endoscopy/colonoscopy records reviewed, patient with internal hemorrhoids and sigmoid diverticulosis, a gastric polyp and small gastric ulceration in June 2018. Vital Signs Temp 98.2 F 08/13/18 10:00 Pulse 75 08/13/18 10:45 Resp 18 08/13/18 10:45 BP 157/67 08/13/18 10:45 Pulse Ox 100 08/13/18 10:00 NAD Abd soft NT ND Labs reviewed CBC, BMP 08/13/18 06:50 08/12/18 06:49 Impression is that of overt obscure bleeding - suspect from small bowel angioectasias given ESRD/HD. Had a CTA in 04/2018 that had contrast extravasation into the cecum; subsequent colonoscopy with cecal diverticulum with ulcer thought to be culprit and clipped Technically more complicated now as patient is on DAPT and is to have staged PCI Would recommend transfer to [facility] for further evaluation/management - possible repeat EGD/SBE and VCE Discussed with SILVER Pleitez
--- NOTE | 2018-08-13 17:01 | ECHO ---
Name: CHINO BATES Exam:Adult Echocardiogram Study Date: 08/13/2018 02:53 PM Age: 72 yrs Reason For Study: Chest pain Height: 58 in Weight: 162 lb BSA: 1.7 m2 MMode/2D Measurements & Calculations IVSd: 1.0 cm Ao root diam: 2.5 cm LVIDd: 4.9 cm LA dimension: 4.5 cm LVIDs: 3.1 cm LVPWd: 1.1 cm LVPWs: 1.5 cm EDV(Teich): 113.8 ml ESV(Teich): 39.4 ml LVOT diam: 2.0 cm RV S Mike: 7.3 cm/sec Doppler Measurements & Calculations MV E max mike: 76.2 cm/sec Ao V2 max: 162.4 cm/sec MV A max mike: 109.1 cm/sec Ao max P.6 mmHg MV E/A: 0.70 Ao V2 mean: 112.4 cm/sec MV dec time: 0.10 sec Ao mean P.9 mmHg Ao V2 VTI: 41.1 cm JOSE(I,D): 1.9 cm2 JOSE(V,D): 1.9 cm2 LV V1 max P.0 mmHg SV(LVOT): 77.0 ml LV V1 mean P.1 mmHg LV V1 max: 100.4 cm/sec LV V1 mean: 66.8 cm/sec LV V1 VTI: 25.6 cm TR max mike: 265.9 cm/sec PA V2 max: 128.7 cm/sec TR max P.5 mmHg PA max P.6 mmHg Med Peak E' Mike: 6.4 cm/sec Med E/e': 11.9 Lat Peak E' Mike: 7.9 cm/sec Lat E/e': 9.6 Left Ventricle The left ventricular size, thickness and function are normal. Ejection Fraction = 60-65%. Grade I jordyn stolic dysfunction, (abnormal relaxation pattern). Right Ventricle The right ventricle is normal in size and function. Atria The left atrium is mildly dilated. The right atrium is mildly dilated. Mitral Valve There is mild mitral annular calcification. The mitral valve is grossly normal. There is mild mitral regurgitation. Tricuspid Valve The tricuspid valve is not well visualized, but is grossly normal. There is mild to moderate tricuspi d regurgitation. Right ventricular systolic pressure is 24 mmhg. Aortic Valve There is moderate aortic sclerosis.;. The aortic valve opens well. No aortic regurgitation is present . Pulmonic Valve The pulmonic valve is not well visualized. Great Vessels The aortic root is normal size. Pericardium/Pleura There is no pericardial effusion. Interpretation Summary In comparison to previous study performed 05/17/2018, there has been an increase in degree of mitral and tricuspid regurgitation. The left ventricular size, thickness and function are normal The right ventricle is normal in size and function. The left atrium is mildly dilated. The right atrium is mildly dilated. Grade I diastolic dysfunction, (abnormal relaxation pattern). In comparison to previous study performed 05/17/2018, there has been an increase in degree of mitral and tricuspid regurgitation. There is mild mitral regurgitation. There is mild to moderate tricuspid regurgitation. Luis Raymond MD 08/13/2018 05:01 PM
--- NOTE | 2018-08-13 17:47 | DS ---
Physical Examination Vital Signs: Vital Signs Temperature 98.2 F 08/13/18 10:00 Pulse Rate 75 08/13/18 10:45 Respiratory Rate 18 08/13/18 10:45 Blood Pressure 157/67 08/13/18 10:45 O2 Sat by Pulse Oximetry (%) 100 08/13/18 10:00 Constitutional: Yes: Well Nourished, No Distress, Anxious Eyes: Yes: WNL, Conjunctiva Clear, EOM Intact HENT: Yes: WNL, Atraumatic, Normocephalic Neck: Yes: WNL, Supple, Trachea Midline Cardiovascular: Yes: WNL, Regular Rate and Rhythm Respiratory: Yes: WNL, Regular, CTA Bilaterally Gastrointestinal: Yes: WNL, Normal Bowel Sounds, Soft ...Rectal Exam: Yes: Deferred Musculoskeletal: Yes: WNL Extremities: Yes: WNL, Other (right AVF) Edema: No Peripheral Pulses WNL: Yes Integumentary: Yes: WNL Neurological: Yes: WNL, Alert, Oriented ...Motor Strength: WNL Psychiatric: Yes: WNL, Alert, Oriented Labs: CBC, BMP 08/13/18 06:50 08/12/18 06:49 Discharge Summary Reason For Visit: ANEMIA;OCCULT BLOOD IN STOOLS Current Active Problems Anemia (Acute) Diabetes 1.5, managed as type 1 (Acute) Diverticular hemorrhage (Acute) Gastroparesis due to DM (Acute) Guaiac + stool (Acute) Melena (Acute) Peripheral vascular disease (Acute) Prophylactic measure (Acute) Umbilical hernia without obstruction and without gangrene (Acute) Vomiting (Acute) Hospital Course: Patient to be transfered to [facility] for GI capsule study Reports: Report Reviewed ( Cath 07/09/18 1. Multi-vessel CAD, including: - MANAGER ADULT of the mLAD (distal vessel fills via WHEELER) - severe, calcified stenosis of a moderately sized, and isolated D1 - severe, calcified stenosis of the pLCx (largest OM fills via SVG) - MANAGER ADULT of the pRCA (distal vessel fills via SVG)), Other ( EGD 07/05/18 Findings : - The examined esophagus was normal. The Z-line was at 36cm and regular. - One 3 mm sessile polyp with no stigmata of recent bleeding was found in the gastric fundus. The polyp was removed with a cold biopsy forceps. Resection and retrieval were complete. - Thickened erythematous folds with several overlying non-bleeding, superficial gastric ulcers with no stigmata of bleeding were found in the gastric antrum. The largest lesion was 3 mm in largest dimension. Biopsies were taken with a cold forceps for Helicobacter pylori testing. - Patchy erythematous mucosa without active bleeding and with no stigmata of bleeding was found in the duodenal bulb and in the second portion of the duodenum.) Problem List - Problems (1) CAD (coronary artery disease) Assessment/Plan: Appreciate cardiology consultation.Patient is at high risk for stent thrombosis off dual antiplatelet therapy. Recommend resuming DAPT in addition to PPI as soon as possible. Given her recurrent bleeding history would recommend 3-6 months of DAPT then Plavix alone. Recommended to have staged PCI of AVC/rPL in 4 weeks Nitro paste dc'd as per cardiology If H/H remains stable will add beta demetrius as per Dr Matos elevated troponins elevated most likely secondary to renal failure Code(s): I25.10 - ATHSCL HEART DISEASE OF [place] CORONARY ARTERY W/O ANG PCTRS (2) Prophylactic measure Assessment/Plan: FEN renal diet monitor electrolytes HD MWF DVT proph no chemical AC at this time with GIB SCDs early ambulation Dispo patient accepted to medical bed at [facility], awaiting bed availability Code(s): Z29.9 - ENCOUNTER FOR PROPHYLACTIC MEASURES, UNSPECIFIED (3) Anemia Assessment/Plan: pt was given two units prbc on HD seen by GI Dr Eddy-appreciate consultation. [facility] endoscopy/ colonoscopy records reviewed, patient with internal hemorrhoids and sigmoid diverticulosis, a gastric polyp and small gastric ulceration in June 2018. Would recommend transfer to [facility] for further evaluation/management - possible repeat EGD/SBE and VCE Code(s): D64.9 - ANEMIA, UNSPECIFIED Qualifiers: Anemia type: other cause Other causes of anemia: other cause, not classified Qualified Code(s): D64.89 - Other specified anemias (4) HLD (hyperlipidemia) Code(s): E78.5 - HYPERLIPIDEMIA, UNSPECIFIED (5) HTN (hypertension) Assessment/Plan: continue hydralazine Code(s): I10 - ESSENTIAL (PRIMARY) HYPERTENSION (6) Dialysis patient Assessment/Plan: HD M/W/F schedule renal diet Code(s): Z99.2 - DEPENDENCE ON RENAL DIALYSIS (7) GI bleed Assessment/Plan: Transfuse 2u during dialysis tomorrow to be transfered to [facility] for capsule study as per GI monitor H/H Code(s): K92.2 - GASTROINTESTINAL HEMORRHAGE, UNSPECIFIED Qualifiers: GI bleed type/associated pathology: unspecified gastrointestinal hemorrhage type Qualified Code(s): K92.2 - Gastrointestinal hemorrhage, unspecified (8) Melena Assessment/Plan: no melena noted today monitor stools monitor H/H continue PPI Code(s): K92.1 - MELENA Condition: Fair - Instructions Diet, Activity, Other Instructions: Renal diet Disposition: TRANSFER ACUTE CARE/OTHER HOSP - Home Medications Comprehensive Discharge Medication List: Ambulatory Orders Aspirin [Aspirin EC] 81 mg PO DAILY 06/26/18 Calcium Carbonate [Tums] 500 mg PO DAILY 06/26/18 Atorvastatin Ca [Lipitor] 80 mg PO HS 08/11/18 Cinacalcet HCl [Sensipar] 60 mg PO DAILY 08/11/18 Clopidogrel Bisulfate [Plavix] 75 mg PO DAILY 08/11/18 Hydralazine HCl 25 mg PO Q8H 08/11/18 Isosorbide Mononitrate [Isosorbide Mononitrate ER] 30 mg PO DAILY 08/11/18 Pantoprazole Sodium [Protonix] 40 mg PO DAILY 08/11/18 This patient is new to me today: Yes Date on this admission: 08/13/18 Emergency Visit: Yes ED Registration Date: 08/11/18 Care time: The patient presented to the Emergency Department on the above date and was hospitalized for further evaluation of their emergent condition. Critical Care patient: No - Discharge Referral Referred to [facility] Med P.C.: No
[2018-08-13 21:01] VITALS: BP 160/77; PULSE 84; TEMP 97.8
[2018-08-13] MEDS: ATORVASTATIN CA 80 MG TABLET (FP) PO SCH (21:24)
== END 2018-08-13 21:35 | disposition short-term general hospital (02) | DRG 253 ==
LOC: JER 09:56 → JERBED 12:53 → J4S 18:34
PROVIDERS: ATTEND Nurse Practitioner Acute Care
PROC: 30233N1 Transfusion of Nonautologous Red Blood Cells into Peripheral Vein, Percutaneous Approach (ICD-10-PCS; 2018-08-11)
PROC: 5A1D70Z Performance of Urinary Filtration, Intermittent, Less than 6 Hours Per Day (ICD-10-PCS; principal; 2018-08-13)
DX: K92.2 Gastrointestinal hemorrhage, unspecified (principal); I25.10 Atherosclerotic heart disease of native coronary artery without angina pectoris; Z95.1 Presence of aortocoronary bypass graft; D62 Acute posthemorrhagic anemia; I13.2 Hypertensive heart and chronic kidney disease with heart failure and with stage 5 chronic kidney disease, or end stage renal disease; E11.22 Type 2 diabetes mellitus with diabetic chronic kidney disease; N18.6 End stage renal disease; I50.9 Heart failure, unspecified; Z99.2 Dependence on renal dialysis; I73.9 Peripheral vascular disease, unspecified; K42.9 Umbilical hernia without obstruction or gangrene; E78.5 Hyperlipidemia, unspecified; R55 Syncope and collapse; E11.43 Type 2 diabetes mellitus with diabetic autonomic (poly)neuropathy; K31.84 Gastroparesis; E21.3 Hyperparathyroidism, unspecified
CPT/HCPCS: 36415; 36430; 71045-TC-FY; 80053; 82272; 82550; 83036; 83735; 84100; 84484; 85025; 85027; 85610; 86803; 86850; 86900; 86901; 86922; 87340; 93005; 93010; 93306-TC; 99283-25; P9038; P9058

== ENCOUNTER 2018-09-29 08:19 | Emergency (ER) | payer OTHER | END 2018-09-29 12:50 | disposition home or self-care (01) | LOC: JER 08:19 ==

== ENCOUNTER 2018-10-02 21:40 | Emergency (ER) | payer OTHER ==
--- NOTE | 2018-10-02 22:08 | PDOC ---
History of Present Illness - History of Present Illness Initial Comments: 72 yo F with significant history of ESRD on HD (//), CAD s/p CABG, prior CVA, chronic anemia, PUD, sent from dialysis for lethargy, chest pain, and dizziness. Patient also states that she has mbeen having dark black stools over the past few days as well. Of note, she was admitted one month prior for similar symptoms along with anemia and then transferred to [facility] for video capsule endoscopy. Unclear results of the study but patient was transferred because endoscopy here was unrevealing and there was concern for bleeding past the duodenum. Patient states she has similar symptoms today. Denies nausea, vomiting, fevers, chills, or other symptoms. 10/02/18 22:10 <Fernandez Camejo - Last Filed: 10/03/18 04:39> <Osbaldo Timmons - Last Filed: 10/03/18 06:17> - General Stated Complaint: CHEST PAIN Time Seen by Provider: 10/02/18 22:07 Past History - Past Medical History Anemia: No Asthma: No Cardiac Disorders: Yes (CAD, CABG) CVA: Yes (CVA) COPD: No CHF: No Dementia: No Diabetes: Yes Dialysis: Yes (tues, th, sat) GI Disorders: Yes (HERNIA, small bowel resection) Disorders: Yes (GI bleed) HTN: Yes Hypercholesterolemia: Yes Liver Disease: No Seizures: No Thyroid Disease: No - Surgical History Abdominal Surgery: No Appendectomy: No Cardiac Surgery: Yes (BYPASS) Cholecystectomy: No Lung Surgery: No Neurologic Surgery: No Orthopedic Surgery: No - Immunization History Td Vaccination: (UNKNOWN) Immunization Up to Date: Yes (FLU AND PNA) - Suicide/Smoking/Psychosocial Hx Smoking Status: No Smoking History: Unknown if ever smoked Have you smoked in the past 12 months: No Number of Cigarettes Smoked Daily: 0 Cigars Per Day: 0 Hx Alcohol Use: No Drug/Substance Use Hx: No Substance Use Type: None Hx Substance Use Treatment: No <Fernandez Camejo - Last Filed: 10/03/18 04:39> <Osbaldo Timmons - Last Filed: 10/03/18 06:17> - Past Medical History Allergies/Adverse Reactions: Allergies Allergy/AdvReac Type Severity Reaction Status Date / Time No Known Allergies Allergy Verified 10/02/18 22:34 Home Medications: Ambulatory Orders Aspirin [Aspirin EC] 81 mg PO DAILY 06/26/18 Atorvastatin Ca [Lipitor] 40 mg PO HS 08/11/18 Pantoprazole Sodium [Protonix] 40 mg PO DAILY 08/11/18 Carvedilol [Coreg -] 25 mg PO BID 09/29/18 Calcitriol [Rocaltrol -] 0.25 mcg PO DAILY 10/02/18 Ferrous Sulfate [Feosol] 325 mg PO BID 10/02/18 Sevelamer HCl [Renagel] 800 mg PO TID 10/02/18 Sodium Bicarbonate - 650 mg PO TID 10/02/18 Review of Systems - Review of Systems Constitutional: No: Chills, Diaphoresis, Fever, Loss of Appetite HEENTM: No: Blurred Vision, Tearing Respiratory: No: Cough, Shortness of Breath, SOB with Exertion Cardiac (ROS): Yes: Chest Pain. No: Irregular Heart Rate ABD/GI: No: Diarrhea, Nausea, Vomiting : No: Dysuria, Discharge, Frequency Musculoskeletal: No: Back Pain, Joint Pain, Joint Swelling Integumentary: No: Lesions, Lumps, Pallor Neurological: No: Headache, Numbness Psychiatric: No: Anxiety, Depression Hematologic/Lymphatic: Yes: Anemia <Fernandez Camejo - Last Filed: 10/03/18 04:39> *Physical Exam - Physical Exam General Appearance: Yes: Nourished, Appropriately Dressed. No: Apparent Distress HEENT: positive: EOMI, ELVA, Normal ENT Inspection, Normal Voice Neck: positive: Trachea midline, Supple. negative: Tender, Rigid Respiratory/Chest: positive: Normal Breath Sounds. negative: Chest Tender, Lungs Clear (bibasilar faint crackles), Respiratory Distress Cardiovascular: positive: Regular Rhythm, Regular Rate Gastrointestinal/Abdominal: positive: Normal Bowel Sounds, Flat, Soft. negative : Tender Musculoskeletal: positive: Normal Inspection. negative: Decreased Range of Motion Extremity: positive: Normal Capillary Refill, Normal Inspection, Normal Range of Motion. negative: Tender Integumentary: positive: Normal Color, Dry, Warm Neurologic: positive: Fully Oriented, Alert, Normal Mood/Affect, Normal Response , Motor Strength 5/5 <Fernandez Camejo - Last Filed: 10/03/18 04:39> - Vital Signs Last Vital Signs Temp Pulse Resp BP Pulse Ox 97.9 F 77 20 146/57 L 98 10/03/18 03:22 10/03/18 03:22 10/03/18 03:22 10/03/18 03:22 10/03/18 03:22 <Osbaldo Timmons - Last Filed: 10/03/18 06:17> ED Treatment Course - LABORATORY CBC & Chemistry Diagram: 10/02/18 23:15 10/02/18 23:15 <Fernandez Camejo - Last Filed: 10/03/18 04:39> - LABORATORY CBC & Chemistry Diagram: 10/02/18 23:15 10/02/18 23:15 - ADDITIONAL ORDERS Additional order review: Laboratory Results 10/03/18 10/02/18 10/02/18 00:38 23:15 23:15 PT with INR 11.40 INR 0.97 VBG pH 7.44 H POC VBG pCO2 44.8 POC VBG pO2 < 49 H VBG HCO3 29.6 H VBG O2 Sat (Jessica) 51.7 L VBG Base Excess 5.3 H Sodium Potassium Chloride Carbon Dioxide Anion Gap BUN Creatinine Est GFR (CKD-EPI)AfAm Est GFR (CKD-EPI)NonAf Random Glucose Calcium Total Bilirubin AST ALT Alkaline Phosphatase Troponin I B-Natriuretic Peptide Total Protein Albumin Blood Type O POSITIVE Antibody Screen Negative 10/02/18 10/02/18 23:15 23:15 PT with INR INR VBG pH POC VBG pCO2 POC VBG pO2 VBG HCO3 VBG O2 Sat (Jessica) VBG Base Excess Sodium 132 L Potassium 4.3 Chloride 96 L Carbon Dioxide 26 Anion Gap 10 BUN 48.9 H Creatinine 3.9 H Est GFR (CKD-EPI)AfAm 12.40 Est GFR (CKD-EPI)NonAf 10.70 Random Glucose 103 Calcium 8.6 Total Bilirubin 0.2 AST 22 ALT 28 Alkaline Phosphatase 238 H Troponin I < 0.02 B-Natriuretic Peptide 73658.5 H Total Protein 6.3 L Albumin 3.3 L Blood Type Antibody Screen 10/02/18 23:15 RBC 2.16 L MCV 92.7 MCHC 34.4 RDW 15.0 MPV 10.6 Neutrophils % 76.8 Lymphocytes % 12.8 Monocytes % 8.2 Eosinophils % 1.3 Basophils % 0.9 <Osbaldo Timmons - Last Filed: 10/03/18 06:17> Medical Decision Making - Medical Decision Making 72 year with ESRD and history of anemia due to GI bleed presenting with weakness and chest pain during dialysis. HgB 6.9 and patient feeling lethargic so this is concerning for symptomatic anemia secondary to lower GI bleed. Discussed wit Dr. Crowe and he believes the patient should be sent to [facility] because of complexity of pathology. Patient had a recent PCI and is on dual anti-platelet therapy. We discussed this with the [facility] GI service and they accepted the patient for transfer. Patient transferred in stable condition. Labs roughly WNL with negative troponin and BNP 75K. 10/03/18 05:10 <Fernandez Camejo - Last Filed: 10/03/18 04:39> *DC/Admit/Observation/Transfer <Fernandez Camejo - Last Filed: 10/03/18 04:39> - Attestations Physician Attestion: 10/03/18 06:17 I have reviewed the plan as documented and agree with current plan as documented. Electronically co-signed by Osbaldo Timmons MD <Osbaldo Timmons - Last Filed: 10/03/18 06:17> Diagnosis at time of Disposition: Pain - Discharge Dispostion Disposition: TRANSFER ACUTE CARE/OTHER HOSP Condition at time of disposition: Fair - Referrals Referrals: Codey Crowe MD [Primary Care Provider] -
[2018-10-02 22:34] VITALS: BMI 33.7
--- NOTE | 2018-10-02 23:06 | PDOC ---
Documentation entered by Yaniv Nogueira SCRIBE, acting as scribe for Osbaldo Timmons MD. Osbaldo Timmons MD: This documentation has been prepared by the Jero proctor Daniel, SCRIBE, under my direction and personally reviewed by me in its entirety. I confirm that the documentation accurately reflects all work, treatment, procedures, and medical decision making performed by me. Attending Attestation - Resident Resident Name: Fernandez Camejo - ED Attending Attestation I have performed the following: I have examined & evaluated the patient, The case was reviewed & discussed with the resident, I agree w/resident's findings & plan, Exceptions are as noted - HPI HPI: 10/02/18 22:24 The patient is a 72 year old female with a past medical history of ESRD ( hemodialysis /), CAD s/p CABG, prior CVA, anemia, and peptic ulcer disease here today for evaluation of dizziness. The patient reports that she went to dialysis today and stayed the whole 3 hours. She notes that after dialysis she began to feel dizzy and notes some shortness of breath. Patient denies headache, lightheadedness. Denies fever, chills. Denies nausea, vomiting, diarrhea, abdominal pain. Allergies: NKA 10/02/18 23:02 - Physicial Exam PE: 10/02/18 22:24 pt appears uncomfortable sitting up but speaking in full sentences quietly rrr s1 s2 no mrg Bilateral crackles. 1+ pitting edema in LE bilaterally 10/02/18 23:02 - Medical Decision Making 10/02/18 23:02 ESRD CAD with SOB and dizziness after dialysis afebrile , normotensive, not tachycardic concern for volume overload given exam findings labs ekg cxr dispo per labs
[2018-10-02 23:35] LABS: BASO % 0.9 % (0-2.0); EOS % 1.3 % (0-4.5); LYMPH % 12.8 % (8-40); MCH 31.9 pg (25.7-33.7); MCHC 34.4 g/dl (32.0-36.0); MEAN CELL VOLUME 92.7 fl (80-96); MEAN PLT VOLUME 10.6 fl (7.5-11.1); MONO % 8.2 % (3.8-10.2); NEUT % 76.8 % (42.8-82.8); PLATELET COUNT 176 K/MM3 (134-434); RBC 2.16 M/mm3 (3.60-5.2); WHITE BLOOD COUNT 8.6 K/mm3 (4.0-10.0)
[2018-10-02 23:38] LABS: VENOUS PC02 44.8 mmHg (38-52); VENOUS PH 7.44 (7.31-7.41)
[2018-10-02 23:39] LABS: VENOUS PO2 < 49 mmHg (28-48)
[2018-10-02 23:41] LABS: HEMOGLOBIN 6.9 GM/dL (10.7-15.3)
[2018-10-02 23:42] LABS: INR 0.97 (0.83-1.09); PROTHROMBIN TIME (PATIENT) 11.4 SEC (9.7-13.0)
[2018-10-03] LABS: ALBUMIN 3.3 g/dl (3.4-5.0); BILIRUBIN,TOTAL 0.2 mg/dL (0.2-1); BLOOD UREA NITROGEN 48.9 mg/dL (7-18); CALCIUM 8.6 mg/dL (8.5-10.1); CREATININE 3.9 mg/dL (0.55-1.3); POTASSIUM 4.3 mmol/L (3.5-5.1); TOT PROT 6.3 g/dl (6.4-8.2)
[2018-10-03 00:54] LABS: N-TERMINAL BNP 75551.5 pg/ml (5-125)
--- NOTE | 2018-10-03 02:20 | PN ---
Teaching Attending Note Name of Resident: Jorge Vidal ATTENDING PHYSICIAN STATEMENT I saw and evaluated the patient. I reviewed the resident's note and discussed the case with the resident. I agree with the resident's findings and plan as documented. Consultation note Asked to see patient to evaluate; she presents with multiple days melena with severe fatigue. She is noted to have BNP 700x earlier this year to 70k (both in setting of ESRD) and melanotic stools on exam. She is found tohave Hb of 6- range. Similar to last presentation. Recent PCI and requires plavix. Please refer to Dr. Matos's note for further details. Was XF to SDF last admission for capsule endoscopy. On exam she is in mild distress, speaking softly Minor JVD with no abdominal tenderness. RRR s1/2 CN2-12 wnl, no fnd CXR, EKG reviewed Prior imaging reviewed ASSESSMENT AND PLAN: Patient with recent PCI requiring plavix who was recently treated for GIB (upper ; duodenal erosions and esophageal issues per verbal report). She is also likely in acute CHF which is concerning given recent cath with intervention. She is high risk for bleed but would be at extreme risk re-stenosis if plavix held. Agree with ER decision to XF and recommend the same. Full Code
--- NOTE | 2018-10-03 02:55 | CONSULT ---
Consultation: REQUESTING PROVIDER: Osbaldo Westbrook CONSULT REQUEST: We have been asked to medically evaluate this patient for her melena, hx of ESRD and hx of PCI [employer] [id number] HISTORY OF PRESENT ILLNESS: The patient is a 72 year old female with PMH significant of ESRD (HD Monday/ , Saturdays), CAD s/p stent, HTN, and peptic ulcer disease. She presented to the ER with complaints of weakness and dizziness, which started after her 3 hour dialysis session today, associated with a headache. She also complains of 2 days of soft, black stool over the past 2 days, 2 episodes today. She denies any shortness of breath, fevers, chills, nausea, vomiting, or abdominal pain. She presented to the ER 3 days ago with similar complaints, and was transferred to [facility]. REVIEW OF SYSTEMS: CONSTITUTIONAL: generalized weakness Absent: fever, chills, diaphoresis, malaise, loss of appetite, weight change HEENT: Absent: rhinorrhea, nasal congestion, throat pain, throat swelling, difficulty swallowing, mouth swelling, ear pain, eye pain, visual changes CARDIOVASCULAR: Absent: chest pain, syncope, palpitations, irregular heart rate, lightheadedness , peripheral edema RESPIRATORY: Absent: cough, shortness of breath, dyspnea with exertion, orthopnea, wheezing, stridor, hemoptysis GASTROINTESTINAL: melena Absent: abdominal pain, abdominal distension, nausea, vomiting, diarrhea, constipation, hematochezia GENITOURINARY: Absent: dysuria, frequency, urgency, hesitancy, hematuria, flank pain, genital pain MUSCULOSKELETAL: Absent: myalgia, arthralgia, joint swelling, back pain, neck pain SKIN: Absent: rash, itching, pallor HEMATOLOGIC/IMMUNOLOGIC: Absent: easy bleeding, easy bruising, lymphadenopathy, frequent infections ENDOCRINE: Absent: unexplained weight gain, unexplained weight loss, heat intolerance, cold intolerance NEUROLOGIC: Absent: headache, focal weakness or paresthesias, dizziness, unsteady gait, seizure, mental status changes, bladder or bowel incontinence PSYCHIATRIC: Absent: anxiety, depression, suicidal or homicidal ideation, hallucinations. PHYSICAL EXAMINATION Vital Signs - 24 hr 10/02/18 22:25 Temperature 98.5 F Pulse Rate 68 Respiratory 20 Rate Blood Pressure 128/61 O2 Sat by Pulse 100 Oximetry (%) GENERAL: AOx3, appears to be drowsy HEAD: Normal with no signs of trauma. EYES: Pupils equal, round and reactive to light, extraocular movements intact, sclera anicteric, conjunctiva clear. No lid lag. EARS, NOSE, THROAT: Ears normal, nares patent, oropharynx clear without exudates. Moist mucous membranes. NECK: Normal range of motion, supple without lymphadenopathy, JVD, or masses. LUNGS: decreased breath sounds B/L HEART: Regular rate and rhythm, normal S1 and S2 without murmur, rub or gallop. ABDOMEN: Soft, nontender, not distended, normoactive bowel sounds, no guarding, no rebound, no masses. No hepatomegaly or splenomegaly. MUSCULOSKELETAL: Normal range of motion at all joints. No bony deformities or tenderness. No CVA tenderness. UPPER EXTREMITIES: 2+ pulses, warm, well-perfused. No cyanosis. No clubbing. Cap refill <2 seconds. No peripheral edema. LOWER EXTREMITIES: 2+ pulses, warm, well-perfused. No calf tenderness. No peripheral edema. Laboratory Results - last 24 hr 10/02/18 10/02/18 10/02/18 23:15 23:15 23:15 WBC 8.6 RBC 2.16 L Hgb 6.9 L* Hct 20.0 L D MCV 92.7 MCH 31.9 MCHC 34.4 RDW 15.0 Plt Count 176 MPV 10.6 Absolute Neuts (auto) 6.6 Neutrophils % 76.8 Lymphocytes % 12.8 Monocytes % 8.2 Eosinophils % 1.3 Basophils % 0.9 Nucleated RBC % 0 PT with INR INR VBG pH POC VBG pCO2 POC VBG pO2 VBG HCO3 VBG O2 Sat (Jessica) VBG Base Excess Sodium 132 L Potassium 4.3 Chloride 96 L Carbon Dioxide 26 Anion Gap 10 BUN 48.9 H Creatinine 3.9 H Est GFR (CKD-EPI)AfAm 12.40 Est GFR (CKD-EPI)NonAf 10.70 Random Glucose 103 Calcium 8.6 Total Bilirubin 0.2 AST 22 ALT 28 Alkaline Phosphatase 238 H Troponin I < 0.02 B-Natriuretic Peptide 80230.5 H Total Protein 6.3 L Albumin 3.3 L Blood Type Antibody Screen 10/02/18 10/02/18 10/03/18 23:15 23:15 00:38 WBC RBC Hgb Hct MCV MCH MCHC RDW Plt Count MPV Absolute Neuts (auto) Neutrophils % Lymphocytes % Monocytes % Eosinophils % Basophils % Nucleated RBC % PT with INR 11.40 INR 0.97 VBG pH 7.44 H POC VBG pCO2 44.8 POC VBG pO2 < 49 H VBG HCO3 29.6 H VBG O2 Sat (Jessica) 51.7 L VBG Base Excess 5.3 H Sodium Potassium Chloride Carbon Dioxide Anion Gap BUN Creatinine Est GFR (CKD-EPI)AfAm Est GFR (CKD-EPI)NonAf Random Glucose Calcium Total Bilirubin AST ALT Alkaline Phosphatase Troponin I B-Natriuretic Peptide Total Protein Albumin Blood Type O POSITIVE Antibody Screen Negative ASSESSMENT/PLAN: #Hx of ESRD - Undergoes HD 3x week - Had a session earlier today #Recent PCI - PCI with stenting 2 days ago at [facility] - Requires Plavix, but there is concern of active bleeding, so risk of further bleeding vs risk of re-stenosis - Agree with ER decision to transfer to [facility] #Anemia - Was recently treated for upper GI bleed, endoscopy showed duodenal erosions. - Underwent Endoscopy at [facility], is not able to communicate results due to severe fatigue - H&H 6.9/20.0 - Likely due to GI bleed - FOBT pending #CHF - BNP 75.5k, was around 12k earlier this year #Code Status - Full Code #Dispo - Agree with ER decision to transfer to [facility]. Thank you for this consultative opportunity. ATTENDING PHYSICIAN STATEMENT I saw and evaluated the patient. I reviewed the resident's note and discussed the case with the resident. I agree with the resident's findings and plan as documented. SUBJECTIVE: OBJECTIVE: ASSESSMENT AND PLAN:
[2018-10-03 03:24] VITALS: BP 146/57; PULSE 77; TEMP 97.9
--- NOTE | 2018-10-03 10:55 | EKG ---
Test Reason : Blood Pressure : / mmHG Vent. Rate : 072 BPM Atrial Rate : 072 BPM P-R Int : 210 ms QRS Dur : 112 ms QT Int : 432 ms P-R-T Axes : 015 012 165 degrees QTc Int : 473 ms SINUS RHYTHM WITH 1ST DEGREE A-V BLOCK SEPTAL INFARCT , AGE UNDETERMINED CANNOT RULE OUT INFERIOR INFARCT , AGE UNDETERMINED ABNORMAL ECG WHEN COMPARED WITH ECG OF 29-SEP-2018 10:09, SEPTAL INFARCT IS NOW PRESENT NON-SPECIFIC CHANGE IN ST SEGMENT IN ANTERIOR LEADS Confirmed by EVONNE HERNANDEZ, ARETHA ([id number]) on 10/03/2018 10:54:43 AM Referred By: Confirmed By:ARETHA DOUGLASS MD
== END 2018-10-03 03:34 | disposition short-term general hospital (02) ==
LOC: JER 21:40 → UNDOADMIN 10-03 00:11 → JERBED 10-03 00:11 → JER 10-03 03:34
DX: I13.2 Hypertensive heart and chronic kidney disease with heart failure and with stage 5 chronic kidney disease, or end stage renal disease (principal); N18.6 End stage renal disease; I50.9 Heart failure, unspecified; N17.8 Other acute kidney failure; Z99.2 Dependence on renal dialysis; I25.10 Atherosclerotic heart disease of native coronary artery without angina pectoris; Z95.1 Presence of aortocoronary bypass graft; Z95.5 Presence of coronary angioplasty implant and graft; Z79.4 Long term (current) use of insulin; E78.00 Pure hypercholesterolemia, unspecified; K27.9 Peptic ulcer, site unspecified, unspecified as acute or chronic, without hemorrhage or perforation; E11.21 Type 2 diabetes mellitus with diabetic nephropathy; Z86.73 Personal history of transient ischemic attack (TIA), and cerebral infarction without residual deficits; Z79.01 Long term (current) use of anticoagulants; Z79.82 Long term (current) use of aspirin
CPT/HCPCS: 36415; 71045-TC-FY; 80053; 82803; 83880; 84484; 85025; 85610; 86850; 86900; 86901; 93005; 93010; 99285-25

== ENCOUNTER 2018-10-20 13:21 | Inpatient (IN) | payer OTHER ==
[2018-10-20 13:29] VITALS: BMI 30.5
--- NOTE | 2018-10-20 13:45 | PDOC ---
History of Present Illness - General Chief Complaint: Blood Transfusion Stated Complaint: ANEMIA History Source: Patient Exam Limitations: No Limitations Past History - Past Medical History Allergies/Adverse Reactions: Allergies Allergy/AdvReac Type Severity Reaction Status Date / Time No Known Allergies Allergy Verified 10/02/18 22:34 Home Medications: Ambulatory Orders Aspirin [Aspirin EC] 81 mg PO DAILY 06/26/18 Atorvastatin Ca [Lipitor] 40 mg PO HS 08/11/18 Pantoprazole Sodium [Protonix] 40 mg PO DAILY 08/11/18 Carvedilol [Coreg -] 25 mg PO BID 09/29/18 Calcitriol [Rocaltrol -] 0.25 mcg PO DAILY 10/02/18 Ferrous Sulfate [Feosol] 325 mg PO BID 10/02/18 Sevelamer HCl [Renagel] 800 mg PO TID 10/02/18 Sodium Bicarbonate - 650 mg PO TID 10/02/18 Anemia: No Asthma: No Cardiac Disorders: Yes (CAD, CABG) CVA: Yes (CVA) COPD: No CHF: No Dementia: No Diabetes: Yes Dialysis: Yes (tues, thurs, sat) GI Disorders: Yes (HERNIA, small bowel resection) Disorders: Yes (GI bleed) HTN: Yes Hypercholesterolemia: Yes Kidney Stones: Yes (dialysis) Liver Disease: No Seizures: No Thyroid Disease: No - Surgical History Abdominal Surgery: No Appendectomy: No Cardiac Surgery: Yes (BYPASS) Cholecystectomy: No Lung Surgery: No Neurologic Surgery: No Orthopedic Surgery: No - Immunization History Td Vaccination: (UNKNOWN) Immunization Up to Date: Yes (FLU AND PNA) - Suicide/Smoking/Psychosocial Hx Smoking Status: No Smoking History: Never smoked Have you smoked in the past 12 months: No Number of Cigarettes Smoked Daily: 0 Cigars Per Day: 0 Hx Alcohol Use: No Drug/Substance Use Hx: No Substance Use Type: None Hx Substance Use Treatment: No *Physical Exam - Vital Signs Last Vital Signs Temp Pulse Resp BP Pulse Ox 98.6 F 74 20 105/48 L 98 10/20/18 13:22 10/20/18 13:22 10/20/18 13:22 10/20/18 13:22 10/20/18 13:22
--- NOTE | 2018-10-20 14:16 | PDOC ---
History of Present Illness - General Chief Complaint: Blood Transfusion Stated Complaint: ANEMIA Time Seen by Provider: 10/20/18 13:46 - History of Present Illness Initial Comments: 10/20/18 14:49 73 y/o/f with history of ESRD on dialysis (Monday//Monday) sent here from dialysis for low hgb levels. She was told on that her blood count was low but she did not want to come at that time. She had dialysis today and was again told that her blood count was low and her daughter convinced her to come today. She complains of some nausea and dizziness but as per her daughter she normally has these symptoms after dialysis. She is having dark stools and has been having these dark stools since the last time she was seen here. She was transferred to [facility] the last two times she was seen here and had capsule endoscopy done. The daughter is unsure of the results and she has been unable to follow up with GI since she was discharged from [facility]. She denies any chest pain, shortness of breath, dysuria, fever, cough, or other symptoms. PMHx: ESRD on dialysis, CAD s/p CABG, CVA, chronic anemia, GI bleed. Hernia ( diagnosed 4 years ago, patient told she is not a good candidate for surgery) Past History - Past Medical History Allergies/Adverse Reactions: Allergies Allergy/AdvReac Type Severity Reaction Status Date / Time No Known Allergies Allergy Verified 10/02/18 22:34 Home Medications: Ambulatory Orders Aspirin [Aspirin EC] 81 mg PO DAILY 06/26/18 Atorvastatin Ca [Lipitor] 40 mg PO HS 08/11/18 Pantoprazole Sodium [Protonix] 40 mg PO DAILY 08/11/18 Carvedilol [Coreg -] 25 mg PO BID 09/29/18 Ferrous Sulfate [Feosol] 325 mg PO BID 10/02/18 Sevelamer HCl [Renagel] 800 mg PO TID 10/02/18 Sodium Bicarbonate - 650 mg PO TID 10/02/18 Anemia: No Asthma: No Cardiac Disorders: Yes (CAD, CABG) CVA: Yes (CVA) COPD: No CHF: No Dementia: No Diabetes: Yes Dialysis: Yes (, , mon) GI Disorders: Yes (HERNIA, small bowel resection) Disorders: Yes (GI bleed) HTN: Yes Hypercholesterolemia: Yes Kidney Stones: Yes (dialysis) Liver Disease: No Seizures: No Thyroid Disease: No Other medical history: RT AV FISTULA - Surgical History Abdominal Surgery: No Appendectomy: No Cardiac Surgery: Yes (BYPASS) Cholecystectomy: No Lung Surgery: No Neurologic Surgery: No Orthopedic Surgery: No - Immunization History Td Vaccination: (UNKNOWN) Immunization Up to Date: Yes (FLU AND PNA) - Suicide/Smoking/Psychosocial Hx Smoking Status: No Smoking History: Never smoked Have you smoked in the past 12 months: No Number of Cigarettes Smoked Daily: 0 Cigars Per Day: 0 Hx Alcohol Use: No Drug/Substance Use Hx: No Substance Use Type: None Hx Substance Use Treatment: No Review of Systems - Review of Systems Constitutional: No: Chills, Fever HEENTM: No: Nose Congestion Respiratory: No: Cough, Shortness of Breath Cardiac (ROS): Yes: Lightheadedness. No: Chest Pain, Palpitations ABD/GI: Yes: Nausea. No: Diarrhea, Vomiting : No: Dysuria Musculoskeletal: No: Back Pain Integumentary: No: Rash Neurological: No: Headache, Numbness Endocrine: No: Excessive Sweating *Physical Exam - Vital Signs Last Vital Signs Temp Pulse Resp BP Pulse Ox 98.6 F 74 20 105/48 L 99 10/20/18 13:22 10/20/18 13:22 10/20/18 13:22 10/20/18 13:22 10/20/18 14:08 - Physical Exam General Appearance: Yes: Nourished, Appropriately Dressed HEENT: positive: EOMI, Normal Voice, Symmetrical Neck: positive: Trachea midline, Supple Respiratory/Chest: positive: Lungs Clear, Respiratory Distress. negative: Accessory Muscle Use Cardiovascular: positive: Regular Rhythm, Regular Rate, S1, S2 Gastrointestinal/Abdominal: positive: Normal Bowel Sounds, Soft, Hernia ( paraumbilical hernia palpated with mild tenderness ) Musculoskeletal: negative: CVA Tenderness (R) Extremity: positive: Normal Capillary Refill Integumentary: positive: Dry Neurologic: positive: Fully Oriented, Alert, Motor Strength 5/5 ED Treatment Course - LABORATORY CBC & Chemistry Diagram: 10/20/18 14:49 10/20/18 13:55 Medical Decision Making - Medical Decision Making 10/20/18 15:24 -73 y/o/f with history of ESRD on dialysis (Monday//Monday) sent here from dialysis for low hgb levels. She was told on that her blood count was low but she did not want to come at that time. She had dialysis today and was again told that her blood count was low and her daughter convinced her to come today. -Work up with: CBC, CMP, type and screen, PT/INR, EKG, FOBT. -Patient complains that she feels cold and tired. -No milena blood or hemorrhoids seen on rectal exam. No stool in vault. 10/20/18 15:27 -CBC shows Hgb/HCT of 7.4/22 -Coags normal. CMP shows elevated BUN/Creatinine, alk phos. -Will order one unit of PRBC. 10/20/18 16:16 -Stool Occult test positive 10/20/18 17:03 -EKG reviewed - normal sinus rhythm, no acute ischemic changes. -Patient receiving 1 unit of PRBC -Microblogged admitting hospitalist. Will admit patient. 10/20/18 17:43 -Patient admitted under Dr. Smith -Will consult GI 10/20/18 17:57 -Spoke with Dr. Teran, GI, recommended to transfer patient to [facility] for further workup. 10/20/18 18:[address] Peters at [facility] ED for ED to ED transfer. Patient accepted for transfer. *DC/Admit/Observation/Transfer Diagnosis at time of Disposition: GI bleed Anemia Qualifiers: Anemia type: unspecified type Qualified Code(s): D64.9 - Anemia, unspecified - Discharge Dispostion Disposition: TRANSFER ACUTE CARE/OTHER HOSP Condition at time of disposition: Stable - Referrals - Patient Instructions - Post Discharge Activity - Transfer to Acute Care Facility Receiving Facility: [facility] Accepting Physician:: mariposa Transfer comment: 10/20/18 18:21 Transfer requested as per GI for capsule endoscopy which cannot be performed here.
[2018-10-20 14:34] LABS: INR 1.02 (0.83-1.09)
[2018-10-20 14:50] LABS: BILIRUBIN,TOTAL 0.2 mg/dL (0.2-1); CALCIUM 7.7 mg/dL (8.5-10.1); POTASSIUM 4.3 mmol/L (3.5-5.1); TOT PROT 5.7 g/dl (6.4-8.2)
--- NOTE | 2018-10-20 14:53 | PDOC ---
Attending Attestation - Resident Resident Name: Ethan Lopezmiguelloki Estefania - ED Attending Attestation I have performed the following: I have examined & evaluated the patient, The case was reviewed & discussed with the resident, I agree w/resident's findings & plan, Exceptions are as noted - HPI HPI: 10/20/18 14:50 73yo F hx CVA, HTN, HL, DM, CAD, ESRD on HD (TRS), GIB, presents to the ED with concern for low blood count Was told she was anemic and advised to come to ED but did not want to come to ED +nausea and lightheadedness which is typical post HD At HD today, pt again told blood counts are low and family convinced her to come in +dark stools for weeks - Physicial Exam PE: 10/20/18 16:57 GENERAL: Awake, alert, and fully oriented, in no acute distress EYES: PERRLA, EOMI, sclera anicteric, conjunctiva clear ENT: Auricles normal inspection, hearing grossly normal, nares patent, oropharynx clear without exudates. Moist mucosa NECK: Normal ROM, supple, no lymphadenopathy, JVD, or masses LUNGS: Breath sounds equal, clear to auscultation bilaterally. No wheezes, and no crackles HEART: Regular rate and rhythm, normal S1 and S2, no murmurs, rubs or gallops ABDOMEN: Soft, nontender, normoactive bowel sounds. No guarding, no rebound. + reducible, non tender, ventral hernia : rectal exam with no stool in vault, only brown mucus EXTREMITIES: Normal range of motion, no edema. No clubbing or cyanosis. No cords, erythema, or tenderness NEUROLOGICAL: Normal speech, cranial nerves intact, equal strength and sensation b/l SKIN: Warm, Dry, normal turgor, no rashes or lesions noted. - Medical Decision Making 10/20/18 16:58 Hgb 7.4 Pt with cardiac risk factors Guaiac + stool consents for blood transfusion Anticipate admission, awaiting call back from hospitalist Hospitalist requests GI consult Case discussed with Dr. Teran who recommends transfer to [facility] given recent capsule endoscopy there for GIB bleed. Pt consents for transfer, pt accepted for transfer to ED. Heart Score/ECG Review #1 10/20/18 16:59 EKG read and int by me: NSR, rate 63. Normal axis. No DONALD. TW flattening i, II, avl, III, avf, V5-V6. No changes cmpared to EKG from 10/03/18
[2018-10-20 15:00] LABS: BASO % 0.7 % (0-2.0); EOS % 1.5 % (0-4.5); HEMOGLOBIN 7.4 GM/dL (10.7-15.3); LYMPH % 9.9 % (8-40); MCH 31.5 pg (25.7-33.7); MCHC 33.6 g/dl (32.0-36.0); MEAN CELL VOLUME 93.5 fl (80-96); MEAN PLT VOLUME 9.7 fl (7.5-11.1); MONO % 5.1 % (3.8-10.2); NEUT % 82.8 % (42.8-82.8); PLATELET COUNT 187 K/MM3 (134-434); RBC 2.35 M/mm3 (3.60-5.2); RDW 16.3 % (11.6-15.6); WHITE BLOOD COUNT 6.2 K/mm3 (4.0-10.0)
[2018-10-20 18:31] VITALS: BP 118/55; PULSE 62; TEMP 98.2
[2018-10-20] MEDS ORDERED: SODIUM BICARBONATE 650 MG TABLET PO SCH (22:00)
[2018-10-20] MEDS ORDERED: FERROUS SO4 325 MG TABLET (FP) PO SCH (22:00)
[2018-10-20] MEDS ORDERED: ATORVASTATIN CA 40 MG TABLET (FP) PO SCH (22:00)
[2018-10-20] MEDS ORDERED: PATIENT'S OWN MEDICATION (NON-FORMULARY) (Sevelamer Hcl [Renagel] 800 MG) PO SCH (22:00)
[2018-10-20] MEDS ORDERED: CARVEDILOL 25 MG TABLET (FP) PO SCH (22:00)
[2018-10-20] MEDS ORDERED: PATIENT'S OWN MEDICATION (NON-FORMULARY) (Ferrous Sulfate [Feosol] 325 MG) PO SCH (22:00)
[2018-10-21] MEDS ORDERED: SEVELAMER CARBONATE 800 MG TAB (FP) PO SCH (08:00)
[2018-10-21] MEDS ORDERED: PANTOPRAZOLE 40 MG TABLET (FP) PO SCH (10:00)
--- NOTE | 2018-10-21 17:03 | EKG ---
Test Reason : Blood Pressure : / mmHG Vent. Rate : 063 BPM Atrial Rate : 063 BPM P-R Int : 174 ms QRS Dur : 086 ms QT Int : 438 ms P-R-T Axes : 035 014 140 degrees QTc Int : 448 ms NORMAL SINUS RHYTHM LEFT VENTRICULAR HYPERTROPHY WITH REPOLARIZATION ABNORMALITY ABNORMAL ECG Confirmed by MD SHERIDAN, ANUJ ([id number]) on 10/21/2018 5:03:39 PM Referred By: Confirmed By:ANUJ SWARTZ MD
== END 2018-10-20 20:25 | disposition short-term general hospital (02) | DRG 253 ==
LOC: JER 13:21 → JERBED 17:19
PROVIDERS: ADMIT Internal Medicine; ATTEND Internal Medicine
DX: K92.2 Gastrointestinal hemorrhage, unspecified (principal); E11.22 Type 2 diabetes mellitus with diabetic chronic kidney disease; I12.0 Hypertensive chronic kidney disease with stage 5 chronic kidney disease or end stage renal disease; D64.9 Anemia, unspecified; N18.6 End stage renal disease; I25.10 Atherosclerotic heart disease of native coronary artery without angina pectoris; Z95.1 Presence of aortocoronary bypass graft; Z86.73 Personal history of transient ischemic attack (TIA), and cerebral infarction without residual deficits; Z99.2 Dependence on renal dialysis; E78.5 Hyperlipidemia, unspecified
CPT/HCPCS: 36415; 36430; 80053; 82272; 85025; 85610; 86850; 86900; 86901; 86922; 93005; 93010; 99285-25; P9038; P9058

== ENCOUNTER 2018-11-02 21:56 | Emergency (ER) | payer OTHER ==
--- NOTE | 2018-11-02 22:56 | PDOC ---
History of Present Illness - General Stated Complaint: ABD PAIN Time Seen by Provider: 11/02/18 22:56 Past History - Past Medical History Allergies/Adverse Reactions: Allergies Allergy/AdvReac Type Severity Reaction Status Date / Time No Known Allergies Allergy Verified 11/02/18 21:58 Home Medications: Ambulatory Orders Aspirin [Aspirin EC] 81 mg PO DAILY 06/26/18 Atorvastatin Ca [Lipitor] 40 mg PO HS 08/11/18 Pantoprazole Sodium [Protonix] 40 mg PO DAILY 08/11/18 Carvedilol [Coreg -] 25 mg PO BID 09/29/18 Ferrous Sulfate [Feosol] 325 mg PO BID 10/02/18 Sevelamer HCl [Renagel] 800 mg PO TID 10/02/18 Sodium Bicarbonate - 650 mg PO TID 10/02/18 Anemia: No Asthma: No Cardiac Disorders: Yes (CAD, CABG) CVA: Yes (CVA) COPD: No CHF: No Dementia: No Diabetes: Yes Dialysis: Yes (tues, thurs, sat) GI Disorders: Yes (HERNIA, small bowel resection) Disorders: Yes (GI bleed) HTN: Yes Hypercholesterolemia: Yes Kidney Stones: Yes (dialysis) Liver Disease: No Seizures: No Thyroid Disease: No - Surgical History Abdominal Surgery: No Appendectomy: No Cardiac Surgery: Yes (BYPASS) Cholecystectomy: No Lung Surgery: No Neurologic Surgery: No Orthopedic Surgery: No - Immunization History Td Vaccination: (UNKNOWN) Immunization Up to Date: Yes (FLU AND PNA) - Psycho Social/Smoking Cessation Hx Smoking Status: No Smoking History: Never smoked Have you smoked in the past 12 months: No Number of Cigarettes Smoked Daily: 0 Cigars Per Day: 0 Hx Alcohol Use: No Drug/Substance Use Hx: No Substance Use Type: None Hx Substance Use Treatment: No ED Treatment Course - LABORATORY CBC & Chemistry Diagram: 11/03/18 09:35 11/03/18 09:35 Medical Decision Making - Medical Decision Making HPI: 73yo F with PMH ESRD (on dialysis TuThSat), CAD s/p CABG, CVA, chronic anemia, GI bleed, hernia presenting with chest and back pain. The pain started about two hours prior to arrival, described as a "squeezing" radiating to her left shoulder. She states she has been constipated and has black stools. Endorsing some shortness of breath which she affilitates with her pain. Patient was recently at [facility] for GI bleed but is not able to tell us what interventions were pursued. PCP: does not know the name Cardio: does not know the name ROS: Constitutional: no fever, no chills HEENT: no throat pain, no dysphagia Cardiovascular: +chest pain, no palpitations Respiratory: no cough, +shortness of breath Gastrointestinal: +abdominal pain, +melena Genitourinary: no dysuria, no hematuria Musculoskeletal: no myalgia, no arthralgia Skin: no rash, no itching Neurologic: no headache, +weakness PE: General: Awake, alert, and fully oriented, eyes closed in pain Head: No signs of trauma Eyes: EOMI, sclera anicteric ENT: Moist mucus membranes Neck: Normal ROM, supple Lungs: Lungs clear, Normal breath sounds Cardio: Regular rhythm, S1 and S2 present Abdomen: Soft, nontender, reducible hernia appreciated Extremities: Normal range of motion, Distal pulses present, audible thrill in AV fistula in RUE SKIN: Warm, Dry, normal turgor Neurologic: Cranial nerves II through XII grossly intact. Normal speech ED Course/MDM: DDX including but not limited to ACS, GI Bleed, PE, PNA, anemia, metabolic derangement Labs, EKG, CXR 11/02/18 22:[address] depressions in inferior distribution and ST elevation in avR Transfer center notified; we are awaiting callback We will give her aspirin 11/03/18 00:19 Dr. Del Rio spoke with the cardiology team at [facility]. They are requesting CBC before accepting transfer. Patient received nitro with some relief of her pain. 11/03/18 00:23 Patient with difficult access; femoral line placed on the left by Dr. Erickson CBC WBC 6.9 K/mm3 (4.0-10.0) 11/03/18 01:32 Corrected WBC (auto) Cancelled 11/03/18 01:16 RBC 1.77 M/mm3 (3.60-5.2) L 11/03/18 01:32 Hgb 5.4 GM/dL (10.7-15.3) L* 11/03/18 01:32 Hct 16.7 % (32.4-45.2) L D 11/03/18 01:32 MCV 94.2 fl (80-96) 11/03/18 01:32 MCH 30.7 pg (25.7-33.7) 11/03/18 01:32 MCHC 32.6 g/dl (32.0-36.0) 11/03/18 01:32 RDW 17.2 % (11.6-15.6) H 11/03/18 01:32 Plt Count 223 K/MM3 (134-434) 11/03/18 01:32 MPV 9.7 fl (7.5-11.1) 11/03/18 01:32 Absolute Neuts (auto) 5.9 K/mm3 (1.5-8.0) 11/03/18 01:32 Neutrophils % 85.7 % (42.8-82.8) H 11/03/18 01:32 Lymphocytes % 7.8 % (8-40) L D 11/03/18 01:32 Monocytes % 5.3 % (3.8-10.2) 11/03/18 01:32 Eosinophils % 0.5 % (0-4.5) 11/03/18 01:32 Basophils % 0.7 % (0-2.0) 11/03/18 01:32 Nucleated RBC % 0 % (0-0) 11/03/18 01:32 Platelet Estimate Cancelled 11/03/18 01:16 Platelet Comment Cancelled 11/03/18 01:16 Hgb=5.4 Arti, Cardiac Fellow: [phone] "transfuse and repeat ekg. Symptoms likely due to anemia. I'll be around all night so you can let me know if something changes but for now no plans for transfer." Since patient with likely GI bleed, we would like to transfer to [facility] so she can receive higher level of care given her complex medical issues. 11/03/18 01:53 Discussed case with GI fellow at [facility]. Transfer refused until patient receives GI consult here. CXR without acute change from previous 11/03/18 02:07 Page to on-call GI, Dr. Mcdonnell, Page to on-call television analyzer, 11/03/18 02:43 Page to patient's railroad mechanic, Dr. Erickson discussed case with Dr. Aiken who will evaluate the patient on behalf of the ICU 11/03/18 02:47 CMP Sodium 138 mmol/L (136-145) 11/03/18 01:46 Potassium 6.1 mmol/L (3.5-5.1) H* 11/03/18 01:46 Chloride 99 mmol/L (98-107) 11/03/18 01:46 Carbon Dioxide 32 mmol/L (21-32) 11/03/18 01:46 Anion Gap 7 MMOL/L (8-16) L 11/03/18 01:46 BUN 86.1 mg/dL (7-18) H 11/03/18 01:46 Creatinine 5.4 mg/dL (0.55-1.3) H 11/03/18 01:46 Est GFR (CKD-EPI)AfAm 8.31 11/03/18 01:46 Est GFR (CKD-EPI)NonAf 7.17 11/03/18 01:46 Random Glucose 133 mg/dL (74-106) H 11/03/18 01:46 Calcium 8.6 mg/dL (8.5-10.1) 11/03/18 01:46 Total Bilirubin 0.2 mg/dL (0.2-1) 11/03/18 01:46 AST 14 U/L (15-37) L 11/03/18 01:46 ALT 17 U/L (13-61) 11/03/18 01:46 Alkaline Phosphatase 146 U/L (45-117) H 11/03/18 01:46 Creatine Kinase 49 U/L (26-192) 11/03/18 01:46 Troponin I 0.57 ng/ml (0.00-0.05) H 11/03/18 01:46 Total Protein 5.1 g/dl (6.4-8.2) L 11/03/18 01:46 Albumin 2.7 g/dl (3.4-5.0) L 11/03/18 01:46 Lipase 238 U/L (73-393) 11/03/18 01:46 Tpn 0.57 K=6.1 Calcium, insulin, dextrose, albuterol ordered for hyperkalemia 11/03/18 02:59 Have not received any calls back from cardiology, nephrology, or GI. 11/03/18 03:18 Patient signed out to Dr. Erickson and night team 11/03/18 03:41 Discharge - Discharge Information Problems reviewed: Yes Clinical Impression/Diagnosis: Acute electrocardiogram changes, Elevated troponin Chest pain Qualifiers: Chest pain type: unspecified Qualified Code(s): R07.9 - Chest pain, unspecified Anemia Qualifiers: Anemia type: unspecified type Qualified Code(s): D64.9 - Anemia, unspecified Condition: Improved Disposition: TRANSFER ACUTE CARE/OTHER HOSP - Follow up/Referral - Patient Discharge Instructions - Post Discharge Activity
[2018-11-02 23:13] VITALS: BMI 32.7
[2018-11-02] MEDS ORDERED: ACETAMINOPHEN 1000 MG/100 ML VIAL (NON FORMULARY) IVPB ONE (23:13)
[2018-11-02] MEDS ORDERED: FAMOTIDINE 20 MG/50 ML IVPB 20 MG/50 ML MG IVPB ONE (23:13)
--- NOTE | 2018-11-03 00:13 | PDOC ---
Attending Attestation - Resident Resident Name: Adeline Shepard - ED Attending Attestation I have performed the following: I have examined & evaluated the patient, The case was reviewed & discussed with the resident, I agree w/resident's findings & plan, Exceptions are as noted - HPI HPI: 11/03/18 00:12 I have gone in to see this patient along with the resident There is NO EKG AVAILABLE NONE WAS PERFORMED ON THIS PATIENT PRESENTING WITH CHEST PAIN upon arrival to the ER Pt reports ongoing chest pain and is belching, she is seated forward Tech called into the room immediately for STAT EKG EKG performed and is concerning 11/03/18 00:13 Ms Posey is a 73 yo F h/o ESRD on HD T,R,S, H/o GIB and anemia, h/o POSITIVE STRESS TEST in 06/2018 - severe posterolateral wall ischemia. For this, pt was treated with ASA and IV Heparin --> hematochezia. Cardiac cath 07/09, found to have multi-vessel CAD. Found to have severe stenosis in body of SVG between D2 and OM2 and DIANA x 2 placed. This evening, approximately 2 hours prior to arrival, pt developed chest pain, located in the center of the chest and also radiating to the back and left shoulder Per last cardiology note: 1. Multi-vessel CAD, including: - FLAVORINGS COMPOUNDER of the mLAD (distal vessel fills via WHEELER) - severe, calcified stenosis of a moderately sized, and isolated D1 - severe, calcified stenosis of the pLCx (largest OM fills via SVG) - FLAVORINGS COMPOUNDER of the pRCA (distal vessel fills via SVG) - severe stenosis of the AVC (isolating a moderately sized rPL) 2. Patent WHEELER to LAD, SVG to rPDA, SVG to D2 jump to OM2 3. Severe stenosis in the body of the SVG between the D2 limb and OM2 limb ( culprit) 4. Elevated LVEDP 5. No SVG between D2 and OM2 and DIANA x 2 placed Plan was to have staged PCI of AVC/rPL in 4 weeks 11/03/18 00:46 11/03/18 03:31 - Physicial Exam PE: 11/03/18 00:46 GENERAL: The patient is in no acute distress. ENT: Ears normal, nares patent, oropharynx clear without exudates. Moist mucous membranes. NECK: Normal range of motion, supple, no nuchal rigidity (+) LAD LUNGS: Breath sounds equal, clear to auscultation bilaterally. No wheezes, and no crackles. HEART:Regular rate and rhythm, normal S1 and S2 without murmur, rub or gallop. ABDOMEN: Soft, nontender, normoactive bowel sounds. EXTREMITIES: Normal range of motion, no edema. NEUROLOGICAL: Cranial nerves II through XII grossly intact. Normal speech. No focal neurological deficits. SKIN: Warm, Dry, normal turgor, no rashes or lesions noted. - Critical Care Time Total Critical Care Time: 120 Critical Care Statement: The care of this patient involved high complexity decision making to prevent further life threatening deterioration of the patient 's condition and/or to evaluate & treat vital organ system(s) failure or risk of failure. - Medical Decision Making 11/02/18 12:25 EKG received it is concerning and was compared to prior EKG Currently: ST rate of 104 bpm, ST ELEVATIONS IN AVR, DEEP ST DEPRESSIONS I, II, V3-V6, t wave inversions aVL, v4-v6 11/03/18 00:39 Case reviewed PCI in July limiting Stat CBC before heparin Please Text With updates [phone] 11/03/18 00:42 Medics in ER I have contacted the fellow again to make sure that she wants the patient transported She re iterates that the patient needs to have a CBC first Central line in process Pt has been VERY difficult access Chest pain is now 8/10 s/p 1 nitro ASA already given Central line difficult to obtain Successfully done by Dr. Gee in the left groin - no abdominal tenderness, left foot warm and well perfused 11/03/18 01:35 CBC clotted Repeat CBC re drawn 11/03/18 01:52 11/03/18 01:53 Laboratory Tests 11/03/18 01:32 WBC 6.9 Hgb 5.4 L* Hct 16.7 L D Plt Count 223 11/03/18 01:54 Call placed to Transfer center again Pt was just in [place] for the same - symptomatic anemia Pending transfer 11/03/18 02:12 Initially ordered for 2 Units PRBCs 1 Unit ordered (I have spoken to the lab about preparing this) I have had a long conversation with GI fellow They are not willing to accept this patient UNTIL she is seen by GI at our facility I have expressed that given this hour of the morning, the patient is unlikely to be seen by GI GI fellow states that the GI attending can not be reached now, pt should be seen by GI in the morning and then he transfer process can be initiated then Dr. Estrella (ICU resident) has come to the ER She recommends discussing case with all the appropriate consults, agrees with transfusion and treatment for hyperkalemia She agrees, pt would be best served at [facility] 11/03/18 03:08 Miguelina from the Transfer center says that the patient requires a GI consult She has called 5 people to try to facilitate this APPARENTLY THERE IS NO ATTENDING THERE TO ACCEPT THE PATIENT PATIENT CAN ONLY BE ACCEPTED TO "THE FLOORS" NOT TO THE ER AND THERE ARE NO FLOOR BEDS I have asked Miguelina that if I was able to get a GI physician to agree that this patient needs to be transferred, would we be able to transfer tonight She states, the patient can not be transferred tonight The director was not called 11/03/18 03:22 Laboratory Tests 11/03/18 01:46 Sodium 138 Potassium 6.1 H* Chloride 99 Carbon Dioxide 32 BUN 86.1 H Creatinine 5.4 H Random Glucose 133 H Creatine Kinase 49 Troponin I 0.57 H Hyperkalemic Insulin/Dextrose/Calcium/Nebs ordered Close monitoring of this patient's status is necessary as patient may go on to need to be transfused ALSO, pt should have a 4 hour troponin because at this point, her initial trop was already 0.57 Consults to GI/Renal/Cards all pending (all called) Clinical impression ACS, initial presentation Symptomatic anemia, initial presentation Hyperkalemia, initial presentation 11/03/18 03:34 Dr Erickson has attempted to transfer this patient by calling the renal attending There is also no renal attending available for discussion about this patient She can not be transferred
[2018-11-03] MEDS ORDERED: ASPIRIN 81 MG CHEWABLE TABLETS PO ONE (00:18)
[2018-11-03] MEDS ORDERED: ASPIRIN 81 MG CHEWABLE TABLETS ONE (00:23)
[2018-11-03] MEDS ORDERED: NITROGLYCERIN SUBLINGUAL 1/200 0.3 MG BTL SL ONE (00:27)
[2018-11-03] MEDS ORDERED: NITROGLYCERIN SUBLINGUAL 1/150 0.4 MG TAB SL ONE (00:46)
[2018-11-03 01:40] LABS: BASO % 0.7 % (0-2.0); EOS % 0.5 % (0-4.5); HEMATOCRIT 16.7 % (32.4-45.2); LYMPH % 7.8 % (8-40); MCH 30.7 pg (25.7-33.7); MCHC 32.6 g/dl (32.0-36.0); MEAN CELL VOLUME 94.2 fl (80-96); MEAN PLT VOLUME 9.7 fl (7.5-11.1); MONO % 5.3 % (3.8-10.2); NEUT % 85.7 % (42.8-82.8); PLATELET COUNT 223 K/MM3 (134-434); RBC 1.77 M/mm3 (3.60-5.2); RDW 17.2 % (11.6-15.6); WHITE BLOOD COUNT 6.9 K/mm3 (4.0-10.0)
[2018-11-03 01:43] LABS: HEMOGLOBIN 5.4 GM/dL (10.7-15.3)
--- NOTE | 2018-11-03 01:43 | PDOC ---
*Physical Exam - Vital Signs Last Vital Signs Temp Pulse Resp BP Pulse Ox 98.3 F 101 H 18 161/95 97 11/02/18 22:58 11/02/18 22:58 11/02/18 22:58 11/02/18 22:58 11/02/18 22:58 ED Treatment Course - LABORATORY CBC & Chemistry Diagram: 11/03/18 01:16 11/03/18 01:16 - ADDITIONAL ORDERS Additional order review: 11/03/18 01:16 RBC Cancelled MCV Cancelled MCHC Cancelled RDW Cancelled MPV Cancelled Neutrophils % Cancelled Lymphocytes % Cancelled Monocytes % Cancelled Eosinophils % Cancelled Basophils % Cancelled - Medications Given in the ED: ED Medications Discontinued Medications Generic Name Dose Route Start Last Admin Trade Name Jessica PRN Reason Stop Dose Admin Aspirin 324 mg 11/03/18 00:18 11/03/18 00:27 Asa - PO 11/03/18 00:19 324 mg ONCE ONE Administration Nitroglycerin 0.3 mg 11/03/18 00:27 11/03/18 00:42 Nitrostat - SL 11/03/18 00:28 0.3 mg ONCE ONE Administration Medical Decision Making - Medical Decision Making 11/03/18 01:43 Assisted team with central line placement as denoted. Discharge - Discharge Information Problems reviewed: Yes Clinical Impression/Diagnosis: Chest pain Qualifiers: Chest pain type: unspecified Qualified Code(s): R07.9 - Chest pain, unspecified Disposition: TRANSFER ACUTE CARE/OTHER HOSP - Follow up/Referral - Patient Discharge Instructions - Post Discharge Activity Procedures - Central Line Central Line Lumen: triple Central Line Position: femoral (L) Anesthesia: 1% Lidocaine Amount of anesthesia (ccs): 5 Complications: none Post Central Line Insertion: sutured, good blood return
[2018-11-03] MEDS ORDERED: PANTOPRAZOLE SODIUM 40 MG VIAL IVPUSH ONE (02:00)
[2018-11-03] MEDS ORDERED: ACETAMINOPHEN INJECTION 100 ML IVPB ONE (02:21)
[2018-11-03] MEDS ORDERED: FAMOTIDINE 20 MG/50 ML IVPB 20 MG/50 ML MG IVPB ONE (02:21)
[2018-11-03] MEDS ORDERED: PANTOPRAZOLE SODIUM 40 MG/100 ML BAG IVPB ONE (02:31)
[2018-11-03 02:43] LABS: INR 1.03 (0.83-1.09); PROTHROMBIN TIME (PATIENT) 12.2 SEC (9.7-13.0)
[2018-11-03 02:51] LABS: ALBUMIN 2.7 g/dl (3.4-5.0); BILIRUBIN,TOTAL 0.2 mg/dL (0.2-1); BLOOD UREA NITROGEN 86.1 mg/dL (7-18); CALCIUM 8.6 mg/dL (8.5-10.1); CREATININE 5.4 mg/dL (0.55-1.3); TOT PROT 5.1 g/dl (6.4-8.2)
[2018-11-03 02:53] LABS: POTASSIUM 6.1 mmol/L (3.5-5.1)
[2018-11-03] MEDS ORDERED: INSULIN REGULAR HUMAN 100 UNITS/ML *VIAL IVPUSH ONE (02:56)
[2018-11-03] MEDS ORDERED: CALCIUM GLUCONATE 10% - 1,000 MG/10 ML VIAL IVPUSH ONE (02:56)
[2018-11-03] MEDS ORDERED: DEXTROSE 50%-WATER - 25 GM/50 ML VIAL IVPUSH ONE (02:57)
[2018-11-03] MEDS ORDERED: ALBUTEROL SO4 0.083% IH SOL 2.5 MG/3 ML VIAL.NEB. NEB ONE (02:59)
[2018-11-03] MEDS ORDERED: CALCIUM GLUCONATE 10% - 1,000 MG/10 ML VIAL ONE (03:23)
--- NOTE | 2018-11-03 03:33 | PDOC ---
*Physical Exam - Vital Signs Last Vital Signs Temp Pulse Resp BP Pulse Ox 98.3 F 101 H 18 161/95 97 11/02/18 22:58 11/02/18 22:58 11/02/18 22:58 11/02/18 22:58 11/02/18 22:58 ED Treatment Course - LABORATORY CBC & Chemistry Diagram: 11/03/18 01:32 11/03/18 05:22 - ADDITIONAL ORDERS Additional order review: Laboratory Results 11/03/18 11/03/18 11/03/18 01:46 01:46 01:46 PT with INR 12.20 INR 1.03 PTT (Actin FS) Sodium 138 Potassium 6.1 H* Chloride 99 Carbon Dioxide 32 Anion Gap 7 L BUN 86.1 H Creatinine 5.4 H Est GFR (CKD-EPI)AfAm 8.31 Est GFR (CKD-EPI)NonAf 7.17 Random Glucose 133 H Calcium 8.6 Total Bilirubin 0.2 AST 14 L ALT 17 Alkaline Phosphatase 146 H Creatine Kinase 49 Troponin I 0.57 H Total Protein 5.1 L Albumin 2.7 L Lipase 238 Anti-A Titer Blood Type O POSITIVE Antibody Screen Negative Crossmatch See Detail 11/03/18 11/03/18 11/03/18 01:46 01:16 01:16 PT with INR Cancelled INR Cancelled PTT (Actin FS) 30.7 Sodium Potassium Chloride Carbon Dioxide Anion Gap BUN Creatinine Est GFR (CKD-EPI)AfAm Est GFR (CKD-EPI)NonAf Random Glucose Calcium Total Bilirubin AST ALT Alkaline Phosphatase Creatine Kinase Troponin I Total Protein Albumin Lipase Cancelled Anti-A Titer Blood Type Antibody Screen Crossmatch 11/03/18 11/03/18 11/03/18 01:16 01:16 01:16 PT with INR INR PTT (Actin FS) Cancelled Sodium Cancelled Potassium Cancelled Chloride Cancelled Carbon Dioxide Cancelled Anion Gap Cancelled BUN Cancelled Creatinine Cancelled Est GFR (CKD-EPI)AfAm Cancelled Est GFR (CKD-EPI)NonAf Cancelled Random Glucose Cancelled Calcium Cancelled Total Bilirubin Cancelled AST Cancelled ALT Cancelled Alkaline Phosphatase Cancelled Creatine Kinase Cancelled Troponin I Cancelled Total Protein Cancelled Albumin Cancelled Lipase Anti-A Titer Blood Type Antibody Screen Crossmatch 11/03/18 01:16 PT with INR INR PTT (Actin FS) Sodium Potassium Chloride Carbon Dioxide Anion Gap BUN Creatinine Est GFR (CKD-EPI)AfAm Est GFR (CKD-EPI)NonAf Random Glucose Calcium Total Bilirubin AST ALT Alkaline Phosphatase Creatine Kinase Troponin I Total Protein Albumin Lipase Anti-A Titer Cancelled Blood Type Cancelled Antibody Screen Cancelled Crossmatch 11/03/18 11/03/18 01:32 01:16 RBC 1.77 L Cancelled MCV 94.2 Cancelled MCHC 32.6 Cancelled RDW 17.2 H Cancelled MPV 9.7 Cancelled Neutrophils % 85.7 H Cancelled Lymphocytes % 7.8 L D Cancelled Monocytes % 5.3 Cancelled Eosinophils % 0.5 Cancelled Basophils % 0.7 Cancelled - Medications Given in the ED: ED Medications Discontinued Medications Generic Name Dose Route Start Last Admin Trade Name Freq PRN Reason Stop Dose Admin Acetaminophen 1,000 mg 11/02/18 23:13 11/03/18 02:29 Ofirmev Injection - IVPB 11/02/18 23:14 1,000 mg ONCE ONE Administration Aspirin 324 mg 11/03/18 00:18 11/03/18 00:27 Asa - PO 11/03/18 00:19 324 mg ONCE ONE Administration Famotidine/Sodium Chloride 20 mg in 50 mls @ 100 mls/hr 11/02/18 23:13 02:29 Pepcid 20 Mg Premixed Ivpb - IVPB 11/02/18 23:42 100 mls/hr ONCE ONE Administration Nitroglycerin 0.3 mg 11/03/18 00:27 11/03/18 00:42 Nitrostat - SL 11/03/18 00:28 0.3 mg ONCE ONE Administration Nitroglycerin 0.4 mg 11/03/18 00:46 11/03/18 02:29 Nitrostat - SL 11/03/18 00:47 0.4 mg ONCE ONE Administration Pantoprazole Sodium 40 mg 11/03/18 02:00 11/03/18 02:43 Protonix Iv IVPUSH 11/03/18 02:01 40 mg ONCE ONE Administration Medical Decision Making - Medical Decision Making 11/03/18 03:[address] Shepard. Patient is a 73 yo female w/ pmh of ESRD (T/R/S dialysis), CAD s/p CABG, CVA, chronic anemia, GI bleed, hernia who presented w/ chest and back pain w/ additionaly complaint of black tarry stools, abdominal pain, and shortness of breath. Previous team unable to get access so femoral central line placed. Patient noted to have ST elevations in aVR w/ depressions in inferolateral regions. Patient further noted to be severely anemic; troponin 0.57, K 6.1. Previous team attempted to transfer to cardiology at [facility] however transfer refused until GI consult obtained. Team attempted consult however were unable to contact. Attempted nephrology consult however likewise unable to establish contact. Consulted ICU who likewise requested GI consult before accepting admission. GI unable to be contacted. Again attempted transfer to [facility] for dialysis given patient's hyperkalemia and transfer center unable to contact anyone. 11/03/18 03:57 Attending discussed case with ICU attending who thought patient acceptable for care. Nephrology center receptionist paged for 2nd time. No responses from GI and Cardiology. Transfusion begun for treatment of anemia. Patient will remain in ED pending further consult with plan to again try to reach specialities for consult in AM. 11/03/18 06:13 Patient noted to have 2nd troponin increased to 1.27 from 0.57. Discussed patient with cardiology who believe this to be demand ischemia given relatively low increase overnight. Cardiology suggested continuing with transfusion as best course of treatment w/ GI and dialysis as needed. 11/03/18 06:57 Continue to be unable to reach nephrology or GI despite multiple calls. Patient signed out to Dr. Nova for admission and further care. Discharge - Discharge Information Problems reviewed: Yes Clinical Impression/Diagnosis: Acute electrocardiogram changes, Elevated troponin Chest pain Qualifiers: Chest pain type: unspecified Qualified Code(s): R07.9 - Chest pain, unspecified Anemia Qualifiers: Anemia type: unspecified type Qualified Code(s): D64.9 - Anemia, unspecified - Admission Yes - Follow up/Referral - Patient Discharge Instructions - Post Discharge Activity
[2018-11-03 06:29] LABS: POTASSIUM 5.5 mmol/L (3.5-5.1)
--- NOTE | 2018-11-03 07:39 | PDOC ---
*Physical Exam - Vital Signs Last Vital Signs Temp Pulse Resp BP Pulse Ox 98.5 F 65 16 139/60 100 11/03/18 06:29 11/03/18 07:23 11/03/18 07:23 11/03/18 07:23 11/03/18 07:23 - Physical Exam General Appearance: Yes: Nourished Neck: positive: Trachea midline Respiratory/Chest: positive: Lungs Clear, Normal Breath Sounds Cardiovascular: positive: Regular Rhythm, Regular Rate, S1, S2 Gastrointestinal/Abdominal: positive: Normal Bowel Sounds, Flat, Soft. negative : Tender Integumentary: positive: Normal Color, Dry, Warm Neurologic: positive: geophysical party chief II-XII NML intact, Fully Oriented, Alert Heart Score/ECG Review #3 General ECG Interpretation: Sinus Rhythm, Normal Rate, Normal Intervals, No acute ischemic changes Compared to previous ECG there are: Other (no st elevation or depression, TWI V3 - V5) ED Treatment Course - LABORATORY CBC & Chemistry Diagram: 11/03/18 01:32 11/03/18 05:22 - ADDITIONAL ORDERS Additional order review: Laboratory Results 11/03/18 11/03/18 11/03/18 06:30 05:22 04:46 PT with INR INR PTT (Actin FS) Sodium Potassium 5.5 H Chloride Carbon Dioxide Anion Gap BUN Creatinine Est GFR (CKD-EPI)AfAm Est GFR (CKD-EPI)NonAf POC Glucometer 99 Random Glucose Calcium Total Bilirubin AST ALT Alkaline Phosphatase Creatine Kinase 60 Troponin I 1.27 H* Total Protein Albumin Lipase Stool Occult Blood Positive Anti-A Titer Blood Type Antibody Screen Crossmatch 11/03/18 11/03/18 11/03/18 01:46 01:46 01:46 PT with INR 12.20 INR 1.03 PTT (Actin FS) Sodium 138 Potassium 6.1 H* Chloride 99 Carbon Dioxide 32 Anion Gap 7 L BUN 86.1 H Creatinine 5.4 H Est GFR (CKD-EPI)AfAm 8.31 Est GFR (CKD-EPI)NonAf 7.17 POC Glucometer Random Glucose 133 H Calcium 8.6 Total Bilirubin 0.2 AST 14 L ALT 17 Alkaline Phosphatase 146 H Creatine Kinase 49 Troponin I 0.57 H Total Protein 5.1 L Albumin 2.7 L Lipase 238 Stool Occult Blood Anti-A Titer Blood Type O POSITIVE Antibody Screen Negative Crossmatch See Detail 11/03/18 11/03/18 11/03/18 01:46 01:16 01:16 PT with INR Cancelled INR Cancelled PTT (Actin FS) 30.7 Sodium Potassium Chloride Carbon Dioxide Anion Gap BUN Creatinine Est GFR (CKD-EPI)AfAm Est GFR (CKD-EPI)NonAf POC Glucometer Random Glucose Calcium Total Bilirubin AST ALT Alkaline Phosphatase Creatine Kinase Troponin I Total Protein Albumin Lipase Cancelled Stool Occult Blood Anti-A Titer Blood Type Antibody Screen Crossmatch 11/03/18 11/03/18 11/03/18 01:16 01:16 01:16 PT with INR INR PTT (Actin FS) Cancelled Sodium Cancelled Potassium Cancelled Chloride Cancelled Carbon Dioxide Cancelled Anion Gap Cancelled BUN Cancelled Creatinine Cancelled Est GFR (CKD-EPI)AfAm Cancelled Est GFR (CKD-EPI)NonAf Cancelled POC Glucometer Random Glucose Cancelled Calcium Cancelled Total Bilirubin Cancelled AST Cancelled ALT Cancelled Alkaline Phosphatase Cancelled Creatine Kinase Cancelled Troponin I Cancelled Total Protein Cancelled Albumin Cancelled Lipase Stool Occult Blood Anti-A Titer Blood Type Antibody Screen Crossmatch 11/03/18 01:16 PT with INR INR PTT (Actin FS) Sodium Potassium Chloride Carbon Dioxide Anion Gap BUN Creatinine Est GFR (CKD-EPI)AfAm Est GFR (CKD-EPI)NonAf POC Glucometer Random Glucose Calcium Total Bilirubin AST ALT Alkaline Phosphatase Creatine Kinase Troponin I Total Protein Albumin Lipase Stool Occult Blood Anti-A Titer Cancelled Blood Type Cancelled Antibody Screen Cancelled Crossmatch 11/03/18 11/03/18 11/03/18 04:46 01:32 01:16 RBC 1.77 L Cancelled MCV 94.2 Cancelled MCHC 32.6 Cancelled RDW 17.2 H Cancelled MPV 9.7 Cancelled Neutrophils % 85.7 H Cancelled Lymphocytes % 7.8 L D Cancelled Monocytes % 5.3 Cancelled Eosinophils % 0.5 Cancelled Basophils % 0.7 Cancelled POC Glucometer 99 - Medications Given in the ED: ED Medications Discontinued Medications Generic Name Dose Route Start Last Admin Trade Name Freq PRN Reason Stop Dose Admin Acetaminophen 1,000 mg 11/02/18 23:13 11/03/18 02:29 Ofirmev Injection - IVPB 11/02/18 23:14 1,000 mg ONCE ONE Administration Albuterol Sulfate 1 amp 11/03/18 02:59 11/03/18 04:22 Ventolin 0.083% Nebulizer Soln - NEB 11/03/18 03:00 1 amp ONCE ONE Administration Aspirin 324 mg 11/03/18 00:18 11/03/18 00:27 Asa - PO 11/03/18 00:19 324 mg ONCE ONE Administration Calcium Gluconate 1,000 mg 11/03/18 02:56 11/03/18 03:40 Calcium Gluconate 10% - IVPUSH 11/03/18 02:57 1,000 mg ONCE ONE Administration Dextrose 25 gm 11/03/18 02:57 11/03/18 03:40 D50w (Vial) - IVPUSH 11/03/18 02:58 25 gm NOW ONE Administration Famotidine/Sodium Chloride 20 mg in 50 mls @ 100 mls/hr 11/02/18 23:13 02:29 Pepcid 20 Mg Premixed Ivpb - IVPB 11/02/18 23:42 100 mls/hr ONCE ONE Administration Insulin Human Regular 10 units 11/03/18 02:56 11/03/18 03:40 Novolin R Vial *For Ivpush Or Iv Drip Only* IVPUSH 11/03/18 02:57 10 units ONCE ONE Administration Nitroglycerin 0.3 mg 11/03/18 00:27 11/03/18 00:42 Nitrostat - SL 11/03/18 00:28 0.3 mg ONCE ONE Administration Nitroglycerin 0.4 mg 11/03/18 00:46 11/03/18 02:29 Nitrostat - SL 11/03/18 00:47 0.4 mg ONCE ONE Administration Pantoprazole Sodium 40 mg 11/03/18 02:00 11/03/18 02:43 Protonix Iv IVPUSH 11/03/18 02:01 40 mg ONCE ONE Administration Medical Decision Making - Medical Decision Making 11/03/18 07:35 73 yo f with h/o htn hld esrd CABG here with c/o dark stools , pt was singed out to me pending admission at 7 am. pt with hgb 5, hyperkalemia, otherwise hemodynamically stable over night. labs reviewed. repeat K , and other labs pending. pt scheduled and accepted by ICU , pending acceptance by hospitalist team for admission. consult placed to Dr Ordaz, d/w dr ordaz in am. will see pt on admission. no emergent need for scope currently. recommend transfusion and reassess as no hd instability. d/w dr angel, will arrange for pt to get dialyzed this am. microblog to hospitalist sent this am. on my examination, pt vss. sleeping comfortably. heart and lung exam unremakrakble. repeat K 5.5 11/03/18 07:38 11/03/18 08:31 repeat ekg obtained. no st elevation or depression. comparison from earlier in am much improved. rate 80 . TWI III , V3 - V4 Discharge - Discharge Information Problems reviewed: Yes Clinical Impression/Diagnosis: Acute electrocardiogram changes, Elevated troponin Chest pain Qualifiers: Chest pain type: unspecified Qualified Code(s): R07.9 - Chest pain, unspecified Anemia Qualifiers: Anemia type: unspecified type Qualified Code(s): D64.9 - Anemia, unspecified Condition: Improved - Admission Yes - Follow up/Referral - Patient Discharge Instructions - Post Discharge Activity
--- NOTE | 2018-11-03 08:22 | CON.GI ---
Consult Consult Specialty:: Pt transferred to [facility] for further management - Past Medical History [employer]: Yes: CVA Cardio/Vascular: Yes: CAD, CHF, HTN, [place], Hyperlipdemia Gastrointestinal: Yes: Diverticulosis, Other (C-Diff) Hepatobiliary: Yes: Cholelithiasis Renal/: Yes: Renal Failure, Hemodialysis Infectious Disease: Yes: C-Diff ( was a chronic smoker) Psych: Yes: Anxiety Musculoskeletal: Yes: Chronic low back pain Endocrine: Yes: Diabetes Mellitus (Pt states she is diet controlled and does not take any medication for DM) - Past Surgical History Past Surgical History: Yes: AV Fistula/Graft, CABG, Hernia Repair ([facility]) - Alcohol/Substance Use Hx Alcohol Use: No History of Substance Use: reports: None - Smoking History Smoking history: Never smoked Have you smoked in the past 12 months: No Aproximately how many cigarettes per day: 0 - Social History Usual Living Arrangement: With Child ADL: Independent History of Recent Travel: No Home Medications - Allergies Allergies/Adverse Reactions: Allergies Allergy/AdvReac Type Severity Reaction Status Date / Time No Known Allergies Allergy Verified 11/02/18 21:58 - Home Medications Home Medications: Ambulatory Orders Aspirin [Aspirin EC] 81 mg PO DAILY 06/26/18 Atorvastatin Ca [Lipitor] 40 mg PO HS 08/11/18 Pantoprazole Sodium [Protonix] 40 mg PO DAILY 08/11/18 Carvedilol [Coreg -] 25 mg PO BID 09/29/18 Ferrous Sulfate [Feosol] 325 mg PO BID 10/02/18 Sevelamer HCl [Renagel] 800 mg PO TID 10/02/18 Sodium Bicarbonate - 650 mg PO TID 10/02/18 Physical Exam-GI Vital Signs: Vital Signs Temperature 98.6 F 11/03/18 07:15 Pulse Rate 65 11/03/18 07:23 Respiratory Rate 16 11/03/18 07:23 Blood Pressure 139/60 11/03/18 07:23 O2 Sat by Pulse Oximetry (%) 100 11/03/18 07:58 Labs: CBC, BMP 11/03/18 01:32 11/03/18 05:22 INR, PTT INR 1.03 (0.83-1.09) 11/03/18 01:46
[2018-11-03 10:14] VITALS: BP 167/79; PULSE 77; TEMP 98.4
[2018-11-03 10:16] LABS: EOS % 2.1 % (0-4.5); HEMATOCRIT 22.1 % (32.4-45.2); HEMOGLOBIN 7.2 GM/dL (10.7-15.3); LYMPH % 14.8 % (8-40); MCH 30.2 pg (25.7-33.7); MCHC 32.6 g/dl (32.0-36.0); MEAN CELL VOLUME 92.7 fl (80-96); MEAN PLT VOLUME 10.2 fl (7.5-11.1); MONO % 6.9 % (3.8-10.2); NEUT % 75.2 % (42.8-82.8); PLATELET COUNT 202 K/MM3 (134-434); RBC 2.38 M/mm3 (3.60-5.2); RDW 15.3 % (11.6-15.6); WHITE BLOOD COUNT 7.7 K/mm3 (4.0-10.0)
[2018-11-03 10:36] LABS: POTASSIUM 5.8 mmol/L (3.5-5.1)
--- NOTE | 2018-11-03 10:56 | CON.CARD ---
Cardiology Consult (text) - Consultation Consultation Note: cc: cp , abd pain, sob, black stools hpi: 73 f hx htn, hld, esrd on hd, cad s/p cabg 2004 and pci with enrique to [facility] 2018, dm, dchf, recurrent gib (2/2 diverticulitis and hemroids) here with cp, abd pain, sob, black stools. Past few days noticed sxs. Cp central pressure, intermittent during day. 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 Similar sxs when had gib in past. In ER found to have hgb 5s. Getting prbcs and transferred to [facility]. Pt does not recall who she sees for cardiology, no recent f/u. pmh: per hpi psh: cabg social: no tob fam: no premature cad, scd ros: per hpi; all others nl meds: Home Medications Medication Instructions Recorded Aspirin [Aspirin EC] 81 mg PO DAILY 06/26/18 Atorvastatin Ca [Lipitor] 40 mg PO HS 08/11/18 Pantoprazole Sodium [Protonix] 40 mg PO DAILY 08/11/18 Carvedilol [Coreg -] 25 mg PO BID 09/29/18 Ferrous Sulfate [Feosol] 325 mg PO BID 10/02/18 Sevelamer HCl [Renagel] 800 mg PO TID 10/02/18 Sodium Bicarbonate - 650 mg PO TID 10/02/18 pe: Vital Signs Period Temp Pulse Resp BP Sys/Rodriguez Pulse Ox Last 24 Hr 98.1 F-98.6 F 7-101 15-21 108-167/55-95 97-100 nad no jvd rrr s1s2 no mrg cta bl nl eff aao3 no le e/c/c abd nt nd pos bs no jaundice diaphoresis pos dp pt no carotid bruits Laboratory Last Values WBC 6.9 K/mm3 (4.0-10.0) 11/03/18 01:32 Corrected WBC (auto) Cancelled 11/03/18 01:16 RBC 1.77 M/mm3 (3.60-5.2) L 11/03/18 01:32 Hgb 5.4 GM/dL (10.7-15.3) L* 11/03/18 01:32 Hct 16.7 % (32.4-45.2) L D 11/03/18 01:32 MCV 94.2 fl (80-96) 11/03/18 01:32 MCH 30.7 pg (25.7-33.7) 11/03/18 01:32 MCHC 32.6 g/dl (32.0-36.0) 11/03/18 01:32 RDW 17.2 % (11.6-15.6) H 11/03/18 01:32 Plt Count 223 K/MM3 (134-434) 11/03/18 01:32 MPV 9.7 fl (7.5-11.1) 11/03/18 01:32 Absolute Neuts (auto) 5.9 K/mm3 (1.5-8.0) 11/03/18 01:32 Neutrophils % 85.7 % (42.8-82.8) H 11/03/18 01:32 Lymphocytes % 7.8 % (8-40) L D 11/03/18 01:32 Monocytes % 5.3 % (3.8-10.2) 11/03/18 01:32 Eosinophils % 0.5 % (0-4.5) 11/03/18 01:32 Basophils % 0.7 % (0-2.0) 11/03/18 01:32 Nucleated RBC % 0 % (0-0) 11/03/18 01:32 Platelet Estimate Cancelled 11/03/18 01:16 Platelet Comment Cancelled 11/03/18 01:16 PT with INR 12.20 SEC (9.7-13.0) 11/03/18 01:46 INR 1.03 (0.83-1.09) 11/03/18 01:46 PTT (Actin FS) 30.7 SECONDS (25.2-36.5) 11/03/18 01:46 Sodium 138 mmol/L (136-145) 11/03/18 01:46 Potassium 5.8 mmol/L (3.5-5.1) H 11/03/18 09:35 Chloride 99 mmol/L (98-107) 11/03/18 01:46 Carbon Dioxide 32 mmol/L (21-32) 11/03/18 01:46 Anion Gap 7 MMOL/L (8-16) L 11/03/18 01:46 BUN 86.1 mg/dL (7-18) H 11/03/18 01:46 Creatinine 5.4 mg/dL (0.55-1.3) H 11/03/18 01:46 Est GFR (CKD-EPI)AfAm 8.31 11/03/18 01:46 Est GFR (CKD-EPI)NonAf 7.17 11/03/18 01:46 POC Glucometer 99 UNITS (80-120) 11/03/18 04:46 Random Glucose 133 mg/dL (74-106) H 11/03/18 01:46 Calcium 8.6 mg/dL (8.5-10.1) 11/03/18 01:46 Total Bilirubin 0.2 mg/dL (0.2-1) 11/03/18 01:46 AST 14 U/L (15-37) L 11/03/18 01:46 ALT 17 U/L (13-61) 11/03/18 01:46 Alkaline Phosphatase 146 U/L (45-117) H 11/03/18 01:46 Creatine Kinase 60 U/L (26-192) 11/03/18 05:22 Troponin I 1.27 ng/ml (0.00-0.05) H* 11/03/18 05:22 Total Protein 5.1 g/dl (6.4-8.2) L 11/03/18 01:46 Albumin 2.7 g/dl (3.4-5.0) L 11/03/18 01:46 Lipase 238 U/L (73-393) 11/03/18 01:46 Stool Occult Blood Positive (NEGATIVE) 11/03/18 06:30 Anti-A Titer Cancelled 11/03/18 01:16 Blood Type O POSITIVE 11/03/18 01:46 Antibody Screen Negative 11/03/18 01:46 Crossmatch See Detail 11/03/18 01:46 echo 08/2018: nl lv/rv, dragan, mild mr, mild-mod tr, nl rvsp cxr: no chf ecg: sr, nl intervals, nonspec st-t changes, similar to 09/2018 ecg tele: sr est cct 35 mins a/p: 73 f hx htn, hld, esrd on hd, cad s/p cabg 2004 and pci with enrique to [facility] 2018, dm, dchf, recurrent gib (2/2 diverticulitis and hemroids) here with cp, abd horton, sob, black stools. cp, sob, positive trops: -mild trop elevation with nl ck. ecg similar to prior admits. CP/sob resolved after prbc. No signs chf. Does not appear to be acs, seems to be demand ischemia causing trop elevation and cp/sob sxs. Would continue to trend trops. Monitor on tele. Check updated echo. cad: -as above -recent ENRIQUE placed but in setting of GIB with profound anemia it seems that risks of continuing asa and plavix now outweigh the benefits, so would hold dapt temporarily until acute anemia/GIB issues resolved. htn: -hold home bb in setting of anemia to avoid hypotension hld: -cont statin when taking po meds esrd: -renal eval for HD, pt also with hyperkalemia chronic diastolic chf: -stable vol status, cont HD for vol management GIB, anemia: -continue transfusions -GI eval pending -agree with transfer to tertiary care center
--- NOTE | 2018-11-04 16:53 | EKG ---
Test Reason : Blood Pressure : / mmHG Vent. Rate : 071 BPM Atrial Rate : 071 BPM P-R Int : 184 ms QRS Dur : 102 ms QT Int : 428 ms P-R-T Axes : 034 024 -66 degrees QTc Int : 465 ms NORMAL SINUS RHYTHM ABNORMAL ECG WHEN COMPARED WITH ECG OF 03-NOV-2018 00:14, Confirmed by MANDA CLARK MD ([id number]) on 11/04/2018 4:52:57 PM Referred By: Confirmed By:MANDA CLARK MD
--- NOTE | 2018-11-04 16:54 | EKG ---
Test Reason : Blood Pressure : / mmHG Vent. Rate : 104 BPM Atrial Rate : 104 BPM P-R Int : 166 ms QRS Dur : 130 ms QT Int : 360 ms P-R-T Axes : 042 051 198 degrees QTc Int : 473 ms SINUS TACHYCARDIA NON-SPECIFIC INTRA-VENTRICULAR CONDUCTION BLOCK T WAVE ABNORMALITY, CONSIDER INFEROLATERAL ISCHEMIA ABNORMAL ECG WHEN COMPARED WITH ECG OF 20-OCT-2018 15:19, CONSIDER MYOCARDIAL INJURY PATTERN WITH ST-T ABNORMALITY VENT. RATE HAS INCREASED CLINICAL CORRELATION IS RECOMMENDED Confirmed by MANDA CLARK MD ([id number]) on 11/04/2018 4:54:02 PM Referred By: Confirmed By:MANDA CLARK MD
--- NOTE | 2018-11-05 13:18 | EKG ---
Test Reason : Blood Pressure : / mmHG Vent. Rate : 071 BPM Atrial Rate : 071 BPM P-R Int : 168 ms QRS Dur : 104 ms QT Int : 420 ms P-R-T Axes : 012 022 101 degrees QTc Int : 456 ms NORMAL SINUS RHYTHM NONSPECIFIC ST AND T WAVE ABNORMALITY ABNORMAL ECG WHEN COMPARED WITH ECG OF 03-NOV-2018 02:02, COMPARED TO EKG NO SIGNIFICANT CHANGE IS FOUND Confirmed by MICHELLE HEATH MD ([id number]) on 11/05/2018 1:17:53 PM Referred By: Confirmed By:MICHELLE HEATH MD
== END 2018-11-03 10:35 | disposition short-term general hospital (02) ==
LOC: JER 21:56
PROC: 3E0F7GC Introduction of Other Therapeutic Substance into Respiratory Tract, Via Natural or Artificial Opening (ICD-10-PCS; principal; 2018-11-02)
PROC: 3E033VG Introduction of Insulin into Peripheral Vein, Percutaneous Approach (ICD-10-PCS; 2018-11-02)
PROC: 3E033NZ Introduction of Analgesics, Hypnotics, Sedatives into Peripheral Vein, Percutaneous Approach (ICD-10-PCS; 2018-11-02)
DX: R07.9 Chest pain, unspecified (principal); R94.31 Abnormal electrocardiogram [ECG] [EKG]; D64.9 Anemia, unspecified; Z95.1 Presence of aortocoronary bypass graft; I25.10 Atherosclerotic heart disease of native coronary artery without angina pectoris; Z86.73 Personal history of transient ischemic attack (TIA), and cerebral infarction without residual deficits; E11.22 Type 2 diabetes mellitus with diabetic chronic kidney disease; I13.11 Hypertensive heart and chronic kidney disease without heart failure, with stage 5 chronic kidney disease, or end stage renal disease; N18.6 End stage renal disease; Z99.2 Dependence on renal dialysis; Z79.4 Long term (current) use of insulin
CPT/HCPCS: 36415; 36430; 71045-TC-FY; 80053; 82272; 82550; 82962; 83690; 84132; 84484; 85025; 85610; 85730; 86850; 86900; 86901; 86922; 93005; 93010; 94640; 96365; 96375; 99285-25; J0131; P9038; P9058

== ENCOUNTER 2019-04-06 10:17 | Emergency (ER) | payer OTHER ==
[2019-04-06] MEDS ORDERED: TICAGRELOR 90 MG TABLET PO ONE ×2 (10:36→10:40)
[2019-04-06] MEDS ORDERED: ASPIRIN 325 MG TABLET PO ONE (10:36)
[2019-04-06] MEDS ORDERED: ASPIRIN 81 MG CHEWABLE TABLETS ONE (10:40)
--- NOTE | 2019-04-06 11:00 | PDOC ---
Attending Attestation - Resident Resident Name: Lavell Kuo - ED Attending Attestation I have performed the following: I have examined & evaluated the patient, The case was reviewed & discussed with the resident, I agree w/resident's findings & plan - HPI HPI: 04/06/19 11:00 73 female with h/o HTN, HLD, ESRD on HD (finished dialysis today), CAD s/p CABG in 2004, PCI and DIANA to SVG 07/2018, DM2, diastolic heart failure, recurrent GIB (2/2 diverticulitis/hemorrhoids), presenting with acute onset of substernal chest pain and shortness of breath today at HD session, which she completed. pt describes her chest pain as tightness, nonradiating and at rest, a/w diaphoresis and difficulty breathing. BIB EMS from dialysis center for her chest pain. no meds given. 04/06/19 11:01 04/06/19 11:02 - Physicial Exam PE: 04/06/19 10:57 Agree with the resident's HPI and PE as documented in the electronic medical record. Uncomfortable appearing, mild distress secondary to chest pain EOMI, PERRL, nl conjunctiva, anicteric; neck supple. lungs clear, RRR, abdomen soft nontender. lower abdomen with ecchymosis. ventral hernia soft, nonobstructed. no rebound, guarding. Back nontender. HADLEY x4, no focal neuro deficits. No peripheral edema. normal color for ethnicity, WWP. Right upper extremity palpable fistula with thrill rectal exam with resident, no gross bleeding, soft brown stool. guaiac sent. - Critical Care Time Total Critical Care Time: 30 (STEMI) Critical Care Statement: The care of this patient involved high complexity decision making to prevent further life threatening deterioration of the patient 's condition and/or to evaluate & treat vital organ system(s) failure or risk of failure. - Medical Decision Making 04/06/19 10:58 Vital Signs Temp Pulse Resp BP Pulse Ox 97.8 F 93 H 22 H 108/60 100 04/06/19 10:33 04/06/19 10:33 04/06/19 10:33 04/06/19 10:33 04/06/19 10:33 VS reviewed, wnl. normotensive DDx chest pain: ACS, coronary vasospasm, NSTEMI, arrhythmia, unstable angina, PE , dissection, PUD, esophageal spasm, GERD, gastritis, costochondritis, pneumonia , pleurisy, pericarditis/myocarditis. dehydration, electrolyte/metabolic derangements. EKG with ST elevations with AVR>1mm, and reciprocal depressions diffusely, c/w high grade LAD/Left main STEMI code red alert called sent to [facility], where pt was last evaluated and seen by fishing game warden (pt unsure of name of her fishing game warden). 04/06/19 11:00 pt emergently given ASA full dose and Brilinta 180mg x1. heparin 4000 units x1 bolus, as well as 60 units/kg gtt concern for STEMI 2/2 new thrombus/occlusion vs graft occlusion risks and benefits weighted with patient's prior history of GIB 2/2 hemorrhoids and diverticulosis, as pt has e/o ischemia/infarction, requires anticoagulation and antiplatelets, so benefits outweigh risks, no e/o massive GIB or melena/ hematochezia or tarry stools here, so will give stat. recently at [facility], dc'd from there yesterday where she gets her cardiac care and angina evaluation. consent form signed with daughter over phone due to patient's clinical status, Concha Amos stat transfer via empress to [facility] to the ED, auto accepted to the manager cath lab Dr Mays for intervention. 04/06/19 11:04 04/06/19 11:07 Heart Score/ECG Review #1 ECG reviewed & interpreted by me at: 10:25 General ECG Interpretation: Sinus Rhythm, Normal Rate, Normal Intervals Compared to previous ECG there are: Changes noted 04/06/19 11:09 EKG normal sinus rhythm, 94 bpm, aVR elevation greater than 5 mm with reciprocal depressions diffusely in all leads. Right-sided EKG are unremarkable for elevations >1mm there, this is concerning for high left mainstem or high grade LAD or 3V disease
[2019-04-06] MEDS ORDERED: morphine CARPU-JECT 4 MG/1 ML DISP.SYRIN IVPUSH ONE (11:02)
[2019-04-06] MEDS ORDERED: HEPARIN NA (PORCINE) 5,000 UNITS/ML 1ML VIAL IVPUSH ONE (11:03)
--- NOTE | 2019-04-06 11:03 | PDOC ---
History of Present Illness - General Chief Complaint: Chest Pain Stated Complaint: CHEST PAIN Time Seen by Provider: 04/06/19 10:35 History Source: Patient Exam Limitations: Language Barrier - History of Present Illness Initial Comments: History limited bc patient speaks Croatian Concha Posey is a 73 yo F w a pmh of ESRD (on dialysis [facility]), CAD s/p CABG, CVA, chronic anemia, GI bleed, abdominal hernia presenting with 10/10 substernal chest pain that began this morning while she was receiving dialysis. The patient was discharged from [facility] yesterday. Here in the ER the patient states she has terrible chest pain which feels like a pressure sensation. The pain is associated with profuse diaphoresis and feels heavy in nature. She states she has had multiple heart attacks in the past and this is how they always feels. She endorses significant nausea as well as vomiting. The chest pain is also radiating down her right and left arm. PCP: At [facility] - She states all of her doctors are at [place]. PSH: CABG Allergies: NKA, NKDA Past History - Past Medical History Allergies/Adverse Reactions: Allergies Allergy/AdvReac Type Severity Reaction Status Date / Time No Known Allergies Allergy Verified 04/06/19 10:32 Home Medications: Ambulatory Orders Aspirin [Aspirin EC] 81 mg PO DAILY 06/26/18 Atorvastatin Ca [Lipitor] 40 mg PO HS 08/11/18 Pantoprazole Sodium [Protonix] 40 mg PO DAILY 08/11/18 Carvedilol [Coreg -] 25 mg PO BID 09/29/18 Ferrous Sulfate [Feosol] 325 mg PO BID 10/02/18 Sevelamer HCl [Renagel] 800 mg PO TID 10/02/18 Sodium Bicarbonate - 650 mg PO TID 10/02/18 Anemia: No Asthma: No Cardiac Disorders: Yes (CAD, CABG) CVA: Yes (CVA) COPD: No CHF: No Dementia: No Diabetes: Yes Dialysis: Yes (tues, thurs, sat) GI Disorders: Yes (HERNIA, small bowel resection) Disorders: Yes (GI bleed) HTN: Yes Hypercholesterolemia: Yes Kidney Stones: Yes (dialysis) Liver Disease: No Seizures: No Thyroid Disease: No - Surgical History Abdominal Surgery: No Appendectomy: No Cardiac Surgery: Yes (BYPASS) Cholecystectomy: No Lung Surgery: No Neurologic Surgery: No Orthopedic Surgery: No - Immunization History Td Vaccination: (UNKNOWN) Immunization Up to Date: Yes (FLU AND PNA) - Psycho Social/Smoking Cessation Hx Smoking Status: No Smoking History: Never smoked Have you smoked in the past 12 months: No Number of Cigarettes Smoked Daily: 0 Cigars Per Day: 0 Hx Alcohol Use: No Drug/Substance Use Hx: No Substance Use Type: None Hx Substance Use Treatment: No Review of Systems - Review of Systems Able to Perform ROS?: Yes Comments:: CONSTITUTIONAL: Absent: fever, no chills, no fatigue EYES: Absent: visual changes ENT: Absent: ear pain, no sore throat CARDIOVASCULAR: Present: Chest pain RESPIRATORY: Present: SOB Absent: cough GI: Present: nausea, vomiting Absent: abdominal pain, no constipation, no diarrhea GENITOURINARY: Absent: dysuria, no frequency, no hematuria MUSKULOSKELETAL: Absent: back pain, no arthralgia, no myalgia SKIN: Absent: rash NEURO: Absent: headache *Physical Exam - Vital Signs Last Vital Signs Temp Pulse Resp BP Pulse Ox 97.8 F 93 H 22 H 108/60 100 04/06/19 10:33 04/06/19 10:33 04/06/19 10:33 04/06/19 10:33 04/06/19 10:33 - Physical Exam GENERAL: Appears to be in severe pain and is clutching her chest. HEENT: Normocephalic, atraumatic. PERRL, EOM intact. CARDIOVASCULAR: Normal S1, S2. Regular rate and rhythm. PULMONARY: No evidence of respiratory distress. CTAB. ABDOMEN: Obese, distended, large hernia in place. EXTREMITIES: Normal ROM in all four extremities. LUE fistula SKIN: Warm, dry. No rash NEUROLOGICAL: No focal neurological deficits. ED Treatment Course - LABORATORY CBC & Chemistry Diagram: 04/06/19 10:40 04/06/19 10:40 - Medications Given in the ED: ED Medications Discontinued Medications Generic Name Dose Route Start Last Admin Trade Name Freq PRN Reason Stop Dose Admin Aspirin 325 mg 04/06/19 10:36 04/06/19 10:50 Asa - PO 04/06/19 10:37 325 mg ONCE ONE Administration Ticagrelor 180 mg 04/06/19 10:36 04/06/19 10:50 Brilinta - PO 04/06/19 10:37 180 mg ONCE ONE Administration Medical Decision Making - Medical Decision Making History limited patient speaks Croatian Concha Posey is a 73 yo F w a pmh of ESRD (on dialysis [facility]), CAD s/p CABG, CVA, chronic anemia, GI bleed, abdominal hernia presenting with 10/10 substernal chest pain that began this morning while she was receiving dialysis. The patient was discharged from [facility] yesterday. Here in the ER the patient states she has terrible chest pain which feels like a pressure sensation. The pain is associated with profuse diaphoresis and feels heavy in nature. She states she has had multiple heart attacks in the past and this is how they always feels. She endorses significant nausea as well as vomiting. The chest pain is also radiating down her right and left arm. Vital Signs Temp Pulse Resp BP Pulse Ox 97.8 F 93 H 22 H 108/60 100 04/06/19 10:33 04/06/19 10:33 04/06/19 10:33 04/06/19 10:33 04/06/19 10:33 DDx IBNLT: ACS - STEMI, NSTEMI, Unstable angina, electrolyte/metabolic disturbance, Heart failure Rectal Exam: normal tone - No melena or milena blood on exam. EKG: Sinus rate 94, non-specific intraventricular block, normal axis, ST ELEVATION in aVR 4 mm, DONALD in V1 1 mm, diffuse ST depressions in 1, 2, aVF, v3- v6 Impression: This is concerning for Left main coronary artery occlusion. Given ST elevation in V1 we are obtaining a right sided EKKG Right EKG: Bad baseline patient will not stay still. MDM: Patient having a large heart attack - given that this patient was recently at [facility] for the past week, her kicking machine operator and all her other doctors are at [facility] we will transfer the patient over to [place]. - Giving patient aspirin, heparin, and ticagrelor for STEMI treatment. - Even thought patient has a history of GI bleed we are giving blood thinners because the clot in her heart can kill her right now if not resolved or if it gets worse. I have called the patient's daughter Dandre and spoken with her informing her the status of her mother and that the patient will be transfered over to [facility] for interventional cardiology. Disposition: Transfering patient over to [facility] as a code red Accepting automatic silk screen printer at [facility] Dr. brooks - Patient is autoaccepted to the ER Discharge - Discharge Information Problems reviewed: Yes Clinical Impression/Diagnosis: STEMI (ST elevation myocardial infarction) Qualifiers: Involved coronary artery: left main coronary artery Qualified Code(s): I21.01 - ST elevation (STEMI) myocardial infarction involving left main coronary artery Condition: Critical Disposition: TRANSFER ACUTE CARE/OTHER HOSP - Admission No - Follow up/Referral Referrals: Ricco Mofeftt MD [Primary Care Provider] - - Patient Discharge Instructions Patient Printed Discharge Instructions: DI for Chest Pain - Post Discharge Activity - Transfer to Acute Care Facility Receiving Facility Name: [facility] Accepting Physician:: Dr. Brooks Transfer Comment: STEMI
[2019-04-06] MEDS ORDERED: HEPARIN NA (PORCINE) 5,000 UNITS/ML 1ML VIAL IVPUSH PRN ×2 (11:04)
[2019-04-06] MEDS ORDERED: morphine SULFATE 4 MG/ML VIAL ONE (11:07)
[2019-04-06] MEDS ORDERED: HEPARIN NA (PORCINE) 5,000 UNITS/ML 1ML VIAL ONE (11:07)
[2019-04-06] MEDS ORDERED: HEPARIN INFUSION - 25,000 UNITS/500 ML INFUS.BAG IVPB ONE (11:08)
[2019-04-06 11:09] VITALS: BMI 32.1
[2019-04-06] MEDS ORDERED: HEPARIN - 25,000 UNIT in SODIUM CHLORIDE 495 ML IV SCH (11:15)
[2019-04-06 11:25] LABS: ALBUMIN 3.4 g/dl (3.4-5.0); BILIRUBIN,TOTAL 0.3 mg/dL (0.2-1); BLOOD UREA NITROGEN 39.6 mg/dL (7-18); CALCIUM 8.8 mg/dL (8.5-10.1); CREATININE 2.3 mg/dL (0.55-1.3); MAGNESIUM 2.1 mg/dL (1.8-2.4); POTASSIUM 4.7 mmol/L (3.5-5.1)
[2019-04-06 11:36] VITALS: BP 110/69; PULSE 106; TEMP 98.4
[2019-04-06 12:08] LABS: BASO % 0.2 % (0-2.0); EOS % 0.3 % (0-4.5); HEMATOCRIT 18.8 % (32.4-45.2); LYMPH % 7.9 % (8-40); MCH 31.9 pg (25.7-33.7); MCHC 33.4 g/dl (32.0-36.0); MEAN CELL VOLUME 95.5 fl (80-96); MEAN PLT VOLUME 10.8 fl (7.5-11.1); MONO % 2.5 % (3.8-10.2); NEUT % 89.1 % (42.8-82.8); PLATELET COUNT 264 K/MM3 (134-434); RBC 1.96 M/mm3 (3.60-5.2); RDW 18.4 % (11.6-15.6); WHITE BLOOD COUNT 10.8 K/mm3 (4.0-10.0)
[2019-04-06 12:10] LABS: HEMOGLOBIN 6.3 GM/dL (10.7-15.3)
[2019-04-06 12:18] LABS: INR 3.85 (0.83-1.09)
[2019-04-06 12:21] LABS: ACTIVATED PTT 38.7 SECONDS (25.2-36.5)
--- NOTE | 2019-04-06 13:18 | EKG ---
Test Reason : Blood Pressure : / mmHG Vent. Rate : 094 BPM Atrial Rate : 094 BPM P-R Int : 176 ms QRS Dur : 136 ms QT Int : 434 ms P-R-T Axes : 058 021 216 degrees QTc Int : 542 ms NORMAL SINUS RHYTHM NON-SPECIFIC INTRA-VENTRICULAR CONDUCTION BLOCK T WAVE ABNORMALITY, CONSIDER INFEROLATERAL ISCHEMIA ABNORMAL ECG WHEN COMPARED WITH ECG OF 03-NOV-2018 08:01, SIGNIFICANT CHANGES HAVE OCCURRED Confirmed by JEREMIAS JOHNS MD ([id number]) on 04/06/2019 1:18:14 PM Referred By: Confirmed By:JEREMIAS JOHNS MD
--- NOTE | 2019-04-10 10:51 | EKG ---
Test Reason : Blood Pressure : / mmHG Vent. Rate : 092 BPM Atrial Rate : 092 BPM P-R Int : 194 ms QRS Dur : 124 ms QT Int : 412 ms P-R-T Axes : 000 010 243 degrees QTc Int : 509 ms POOR DATA QUALITY, INTERPRETATION MAY BE ADVERSELY AFFECTED NORMAL SINUS RHYTHM LEFT VENTRICULAR HYPERTROPHY WITH QRS WIDENING AND REPOLARIZATION ABNORMALITY ANTEROLATERAL INFARCT , AGE UNDETERMINED ABNORMAL ECG WHEN COMPARED WITH ECG OF 06-APR-2019 10:32, ANTERIOR INFARCT IS NOW PRESENT ANTEROLATERAL INFARCT IS NOW PRESENT ST NO LONGER DEPRESSED IN ANTERIOR LEADS T WAVE INVERSION MORE EVIDENT IN LATERAL LEADS Confirmed by Bertin Matos ([id number]) on 04/10/2019 10:50:36 AM Referred By: Confirmed By:Bertin Matos
== END 2019-04-06 11:25 | disposition short-term general hospital (02) ==
LOC: JER 10:17
PROC: 3E033GC Introduction of Other Therapeutic Substance into Peripheral Vein, Percutaneous Approach (ICD-10-PCS; principal; 2019-04-06)
PROC: 3E033NZ Introduction of Analgesics, Hypnotics, Sedatives into Peripheral Vein, Percutaneous Approach (ICD-10-PCS; 2019-04-06)
DX: I21.01 ST elevation (STEMI) myocardial infarction involving left main coronary artery (principal); I13.11 Hypertensive heart and chronic kidney disease without heart failure, with stage 5 chronic kidney disease, or end stage renal disease; E13.22 Other specified diabetes mellitus with diabetic chronic kidney disease; N18.6 End stage renal disease; N17.8 Other acute kidney failure; Z99.2 Dependence on renal dialysis; Z95.1 Presence of aortocoronary bypass graft; E78.00 Pure hypercholesterolemia, unspecified; Z86.79 Personal history of other diseases of the circulatory system; Z87.19 Personal history of other diseases of the digestive system
CPT/HCPCS: 36415; 71045-TC-FY; 80053; 82550; 83735; 84484; 85025; 85610; 85730; 93005; 93010; 96374; 96375; 99285-25; J1644